=== PATIENT | female | born 1960 | race Caucasian/White ===

== ENCOUNTER 2017-06-12 14:57 | Inpatient (IN) | payer MEDICAID ==
[~2017-06-12] VITALS: Ht 157.5 cm; Wt 72.0 kg
[~2017-06-12 14:57] MED LIST: ALBU18; ASPI81TA10 PO; BUPR-60 PO; CLOP75TA41 PO; DICLTAB45 PO; ENAL-3; FURO40TA4 PO; ONDANSETRON HCL 4 MG TABLET PO; PANTOPRAZOLE SOD DR 40 MG TAB PO; SPIR25TA89 PO
[2017-06-12] MEDS ORDERED: ASPirin 81 mg TAB PO ONE (15:30)
[2017-06-12 15:50] LABS: Basophils # (auto) 0.1 uL; Basophils % (auto) 0.7 % (0.0-2.0); Eosinophils # (auto) 0.1 uL; Eosinophils % (auto) 1.1 % (0.0-7.0); Hematocrit 41.7 % (36.0-46.0); Hemoglobin 13.8 g/dL (12.2-16.2); Lymphocytes # (auto) 1.5 uL; Lymphocytes % (auto) 17.1 % (10.0-50.0); Mean Corpuscular Hemoglobin 30.4 pg (28.0-32.0); Mean Corpuscular Volume 91.9 fL (80.0-100.0); Monocytes # (auto) 0.8 uL; Neutrophils # (auto) 6.1 uL; Neutrophils % (auto) 72.1 % (37.0-80.0); Nucleated Red Blood Cells % 0.1 %; Platelet Count (auto) 248 10^3/uL (140-450); Red Blood Cells 4.53 10^6/uL (4.0-5.20); Red Cell Distribution Width 13.3 % (11.8-14.3); White Blood Cell 8.5 10^3/uL (4.4-10.8)
[2017-06-12 16:07] LABS: BUN/Creatinine Ratio 17.4; Calcium 8.7 mg/dL (8.5-10.1); Magnesium 2.1 mg/dL (1.6-2.6); Potassium 4.1 mmol/L (3.5-5.1)
[2017-06-12 16:10] LABS: Bilirubin, Total 0.3 mg/dL (0.2-1.0)
[2017-06-12] MEDS ORDERED: FUROSEMIDE 40 MG/4 ML VIAL IV ONE (16:15)
[2017-06-12] MEDS ORDERED: LACTULOSE 20Gm/30ML SOLN PO PRN (17:00)
[2017-06-12] MEDS ORDERED: OSELTAMIVIR 75 MG CAP PO ONE (17:00)
[2017-06-12] MEDS ORDERED: PROMETHAZINE HCL 25 MG/ML 1ML IV PRN (17:00)
[2017-06-12] MEDS ORDERED: ACETAMINOPHEN 500 MG TAB PO PRN (17:00)
[2017-06-12] MEDS ORDERED: MORPHINE SULFATE 10 MG/ML INJ 1ML SDV IV PRN ×2 (17:00)
[2017-06-12] MEDS ORDERED: TEMAZEPAM 15 MG CAP PO PRN (17:00)
[2017-06-12] MEDS ORDERED: NITROGLYCERIN 0.4 MG SL TAB SL PRN (17:00)
[2017-06-12] MEDS ORDERED: ALBUTEROL SULF 2.5 MG/0.5ML(0.5%) NEB SOLN NEB PRN (17:00)
[2017-06-12] MEDS ORDERED: LORazepam 0.5 MG TAB PO PRN (17:00)
[2017-06-12] MEDS: NITROGLYCERIN 0.2MG/HR TOPICAL PATCH TD SCH (17:58)
[2017-06-12] MEDS: ENOXAPARIN SOD 40 MG/0.4 ML SYRINGE SC SCH (17:59)
[2017-06-12] MEDS: ALBUTEROL SULF 2.5 MG/0.5ML(0.5%) NEB SOLN NEB SCH (18:15)
[2017-06-12] MEDS: buPROPion HCL 75 MG TAB PO SCH (19:06)
[2017-06-12] MEDS: HYDROcodone-ACET 5/325MG TAB PO PRN (19:59)
[2017-06-12 20:00] VITALS: BP 127/98
[2017-06-12] MEDS: FUROSEMIDE 40 MG/4 ML VIAL IV SCH (21:50)
[2017-06-12] MEDS: CARVEDILOL 3.125 MG TAB PO SCH (21:50)
[2017-06-12 22:00] VITALS: BP 127/98
[2017-06-12] MEDS ORDERED: OSELTAMIVIR 75 MG CAP PO SCH (22:00)
[2017-06-12] MEDS ORDERED: INFLUENZA QUAD 2017-2018 0.5 ML SYRG IM ONE (23:30)
[2017-06-13] MEDS: ALBUTEROL SULF 2.5 MG/0.5ML(0.5%) NEB SOLN NEB SCH ×4 (01:00→18:00)
[2017-06-13 03:59] VITALS: BP 114/76
[2017-06-13 05:00] VITALS: BP 120/72
[2017-06-13 06:17] LABS: Basophils # (auto) 0.1 uL; Basophils % (auto) 0.8 % (0.0-2.0); Eosinophils # (auto) 0.1 uL; Eosinophils % (auto) 1.6 % (0.0-7.0); Hematocrit 41.5 % (36.0-46.0); Hemoglobin 13.9 g/dL (12.2-16.2); Lymphocytes # (auto) 1.2 uL; Lymphocytes % (auto) 15.5 % (10.0-50.0); Mean Corpuscular Hemoglobin 30.6 pg (28.0-32.0); Mean Corpuscular Hgb Conc. 33.4 g/dL (32.0-36.0); Mean Corpuscular Volume 91.6 fL (80.0-100.0); Monocytes # (auto) 0.7 uL; Monocytes % (auto) 8.9 % (0.0-12.0); Neutrophils # (auto) 5.8 uL; Neutrophils % (auto) 73.2 % (37.0-80.0); Platelet Count (auto) 205 10^3/uL (140-450); Red Blood Cells 4.53 10^6/uL (4.0-5.20); Red Cell Distribution Width 13.2 % (11.8-14.3); White Blood Cell 7.9 10^3/uL (4.4-10.8)
[2017-06-13 06:34] LABS: BUN/Creatinine Ratio 21.7; Bilirubin, Total 0.7 mg/dL (0.2-1.0); Calcium 8.6 mg/dL (8.5-10.1); Potassium 3.8 mmol/L (3.5-5.1); Total Protein 7.7 g/dL (6.4-8.2)
[2017-06-13] MEDS: buPROPion HCL 75 MG TAB PO SCH ×2 (06:44→18:23)
[2017-06-13 09:00] VITALS: BP 141/89
[2017-06-13] MEDS: NITROGLYCERIN 0.2MG/HR TOPICAL PATCH TD SCH (10:00)
[2017-06-13] MEDS: HYDROcodone-ACET 5/325MG TAB PO PRN (10:51)
[2017-06-13] MEDS: PANTOPRAZOLE 40 MG TAB PO SCH (10:52)
[2017-06-13] MEDS: CLOPIDOGREL BISULFATE 75 MG TAB PO SCH (10:52)
[2017-06-13] MEDS: FUROSEMIDE 40 MG/4 ML VIAL IV SCH ×2 (10:52→22:19)
[2017-06-13] MEDS: ENALAPRIL MALEATE 10 MG TAB PO SCH (10:53)
[2017-06-13] MEDS: CARVEDILOL 3.125 MG TAB PO SCH ×2 (10:53→22:25)
[2017-06-13] MEDS: SPIRONOLACTONE 25 MG TAB PO SCH (10:54)
[2017-06-13] MEDS: ASPirin 81 mg TAB PO SCH (10:54)
[2017-06-13] MEDS: POTASSIUM CHL 20 Meq TABLET PO SCH (10:54)
[2017-06-13] MEDS: ENOXAPARIN SOD 40 MG/0.4 ML SYRINGE SC SCH (10:55)
[2017-06-13 13:00] VITALS: BP 128/104
[2017-06-13] MEDS: DIGOXIN 0.25 MG TAB PO SCH (14:45)
[2017-06-13 15:31] LABS: Alcohol, Urine < 3.0 mg/dL (0-5); Amphetamine Screen, Urine NEGATIVE (NEGATIVE); Barbiturate Scree,Urine NEGATIVE (NEGATIVE); Benzodiazephine Screen, Urine NEGATIVE (NEGATIVE); Cannabinoid Screen, Urine NEGATIVE (NEGATIVE); Cocaine Screen, Urine NEGATIVE (NEGATIVE); Opiate Scree,Urine NEGATIVE (NEGATIVE); Phencyclidine Screen, Urine NEGATIVE (NEGATIVE)
[2017-06-13 17:00] VITALS: BP 138/105
[2017-06-13 22:00] VITALS: BP 135/92
[2017-06-14 05:00] VITALS: BP 91/61
[2017-06-14] MEDS: ALBUTEROL SULF 2.5 MG/0.5ML(0.5%) NEB SOLN NEB SCH ×5 (06:08→17:59)
[2017-06-14] MEDS: buPROPion HCL 75 MG TAB PO SCH ×2 (06:13→18:29)
[2017-06-14 07:53] LABS: Basophils # (auto) 0.1 uL; Basophils % (auto) 0.8 % (0.0-2.0); Eosinophils # (auto) 0.1 uL; Eosinophils % (auto) 1.2 % (0.0-7.0); Hematocrit 44.3 % (36.0-46.0); Hemoglobin 15.1 g/dL (12.2-16.2); Lymphocytes # (auto) 1.5 uL; Lymphocytes % (auto) 18.3 % (10.0-50.0); Mean Corpuscular Hemoglobin 30.5 pg (28.0-32.0); Mean Corpuscular Hgb Conc. 34.1 g/dL (32.0-36.0); Mean Corpuscular Volume 89.5 fL (80.0-100.0); Monocytes # (auto) 0.9 uL; Monocytes % (auto) 10.9 % (0.0-12.0); Neutrophils # (auto) 5.8 uL; Neutrophils % (auto) 68.8 % (37.0-80.0); Platelet Count (auto) 257 10^3/uL (140-450); Red Blood Cells 4.95 10^6/uL (4.0-5.20); White Blood Cell 8.4 10^3/uL (4.4-10.8)
[2017-06-14 08:08] LABS: Albumin 3.1 g/dL (3.4-5.0); BUN/Creatinine Ratio 23.9; Calcium 9.4 mg/dL (8.5-10.1); Potassium 4.1 mmol/L (3.5-5.1)
[2017-06-14 08:11] LABS: Bilirubin, Total 0.6 mg/dL (0.2-1.0); Total Protein 8.1 g/dL (6.4-8.2)
[2017-06-14 10:07] VITALS: BP 125/80
[2017-06-14] MEDS: ASPirin 81 mg TAB PO SCH (10:09)
[2017-06-14] MEDS: DIGOXIN 0.25 MG TAB PO SCH (10:09)
[2017-06-14] MEDS: FUROSEMIDE 40 MG/4 ML VIAL IV SCH ×2 (10:09→21:42)
[2017-06-14] MEDS: POTASSIUM CHL 20 Meq TABLET PO SCH (10:09)
[2017-06-14] MEDS: PANTOPRAZOLE 40 MG TAB PO SCH (10:10)
[2017-06-14] MEDS: CLOPIDOGREL BISULFATE 75 MG TAB PO SCH (10:10)
[2017-06-14] MEDS: ENALAPRIL MALEATE 10 MG TAB PO SCH (10:10)
[2017-06-14] MEDS: ENOXAPARIN SOD 40 MG/0.4 ML SYRINGE SC SCH (10:10)
[2017-06-14] MEDS: SPIRONOLACTONE 25 MG TAB PO SCH (10:11)
[2017-06-14] MEDS: CARVEDILOL 3.125 MG TAB PO SCH ×2 (10:11→21:43)
[2017-06-14 13:00] VITALS: BP 134/94
[2017-06-14 17:00] VITALS: BP 135/87
[2017-06-14 22:00] VITALS: BP 120/60
[2017-06-15 05:00] VITALS: BP 117/76
[2017-06-15] MEDS: buPROPion HCL 75 MG TAB PO SCH (06:31)
[2017-06-15] MEDS: ALBUTEROL SULF 2.5 MG/0.5ML(0.5%) NEB SOLN NEB SCH ×2 (07:10→12:55)
[2017-06-15 08:00] VITALS: BP 130/94
[2017-06-15 09:00] VITALS: BP 130/94
[2017-06-15] MEDS: FUROSEMIDE 40 MG/4 ML VIAL IV SCH (10:06)
[2017-06-15] MEDS: CLOPIDOGREL BISULFATE 75 MG TAB PO SCH (10:06)
[2017-06-15] MEDS: SPIRONOLACTONE 25 MG TAB PO SCH (10:07)
[2017-06-15] MEDS: DIGOXIN 0.25 MG TAB PO SCH (10:07)
[2017-06-15] MEDS: ASPirin 81 mg TAB PO SCH (10:07)
[2017-06-15] MEDS: CARVEDILOL 3.125 MG TAB PO SCH (10:07)
[2017-06-15] MEDS: POTASSIUM CHL 20 Meq TABLET PO SCH (10:07)
[2017-06-15] MEDS: ENALAPRIL MALEATE 10 MG TAB PO SCH (10:07)
[2017-06-15] MEDS: PANTOPRAZOLE 40 MG TAB PO SCH (10:07)
[2017-06-15] MEDS: ENOXAPARIN SOD 40 MG/0.4 ML SYRINGE SC SCH (10:08)
== END 2017-06-15 12:45 | disposition home or self-care (01) | DRG 190 ==
LOC: ER 14:57 → TELE 14:58 → TELE-WESTW 19:50
PROVIDERS: ADMIT Internal Medicine; ATTEND Internal Medicine
DX: I21.4 Non-ST elevation (NSTEMI) myocardial infarction (principal); I50.23 Acute on chronic systolic (congestive) heart failure; I07.1 Rheumatic tricuspid insufficiency; E44.1 Mild protein-calorie malnutrition; I11.0 Hypertensive heart disease with heart failure; I25.10 Atherosclerotic heart disease of native coronary artery without angina pectoris; I25.5 Ischemic cardiomyopathy; J44.9 Chronic obstructive pulmonary disease, unspecified; E78.5 Hyperlipidemia, unspecified; F17.210 Nicotine dependence, cigarettes, uncomplicated; I25.2 Old myocardial infarction; Z95.5 Presence of coronary angioplasty implant and graft; Z95.810 Presence of automatic (implantable) cardiac defibrillator; Z86.73 Personal history of transient ischemic attack (TIA), and cerebral infarction without residual deficits; Z98.51 Tubal ligation status; Z82.49 Family history of ischemic heart disease and other diseases of the circulatory system; Z80.9 Family history of malignant neoplasm, unspecified; Z91.14 Patient's other noncompliance with medication regimen; Z68.29 Body mass index [BMI] 29.0-29.9, adult
CPT/HCPCS: 36415; 71045; 80053; 80061; 80307; 82550; 83735; 83880; 84443; 84484; 85025; 85379; 85652; 86141; 87400; 93005; 93306; 94640; 94761; 96374

== ENCOUNTER 2019-01-21 01:47 | Emergency (ER) | payer MEDICAID ==
[~2019-01-21] VITALS: Ht 157.5 cm; Wt 62.6 kg
[~2019-01-21 01:47] MED LIST changes: -ALBU18; -BUPR-60 PO; -DICLTAB45 PO; -ENAL-3; -ONDANSETRON HCL 4 MG TABLET PO; -PANTOPRAZOLE SOD DR 40 MG TAB PO; +SPIR25TA8 PO; -SPIR25TA89 PO
[2019-01-21 02:43] VITALS: BP 120/72
[2019-01-21 05:48] LABS: Basophils # (auto) 0.1 uL; Basophils % (auto) 0.7 % (0.0-2.0); Eosinophils # (auto) 0.1 uL; Eosinophils % (auto) 1.5 % (0.0-7.0); Hematocrit 37.6 % (36.0-46.0); Hemoglobin 12.9 g/dL (12.2-16.2); Lymphocytes # (auto) 1.3 uL; Lymphocytes % (auto) 14.8 % (10.0-50.0); Mean Corpuscular Hemoglobin 32.5 pg (28.0-32.0); Mean Corpuscular Hgb Conc. 34.4 g/dL (32.0-36.0); Mean Corpuscular Volume 94.3 fL (80.0-100.0); Monocytes # (auto) 0.8 uL; Monocytes % (auto) 9.7 % (0.0-12.0); Neutrophils # (auto) 6.4 uL; Neutrophils % (auto) 73.3 % (37.0-80.0); Nucleated Red Blood Cells % 0.1 %; Platelet Count (auto) 289 10^3/uL (140-450); Red Blood Cells 3.98 10^6/uL (4.0-5.20); Red Cell Distribution Width 14.6 % (11.8-14.3); White Blood Cell 8.7 10^3/uL (4.4-10.8)
[2019-01-21 06:05] LABS: Albumin 3.6 g/dL (3.4-5.0); Potassium 3.9 mmol/L (3.5-5.1)
[2019-01-21 06:09] LABS: BUN/Creatinine Ratio 24.2; Bilirubin, Total 0.3 mg/dL (0.2-1.0); Total Protein 8.5 g/dL (6.4-8.2)
== END 2019-01-21 06:40 | disposition left against medical advice (07) ==
LOC: ER 01:48
DX: L98.8 Other specified disorders of the skin and subcutaneous tissue (principal); Z53.21 Procedure and treatment not carried out due to patient leaving prior to being seen by health care provider
CPT/HCPCS: 36415; 80053; 85025

== ENCOUNTER 2021-07-03 16:20 | Emergency (ER) | payer MEDICAID ==
[~2021-07-03] VITALS: Ht 157.5 cm; Wt 56.2 kg
[~2021-07-03 16:20] MED LIST changes: -CLOP75TA41 PO; +CLOP75TA70 PO
[2021-07-03] MEDS ORDERED: AZIT1POW PO (18:24)
[2021-07-03] MEDS ORDERED: METH4PAK PO (18:24)
[2021-07-03 18:43] VITALS: BP 115/85
== END 2021-07-03 18:44 | disposition home or self-care (01) ==
LOC: ER 16:26
DX: U07.1 COVID-19 (principal); R06.02 Shortness of breath; I11.0 Hypertensive heart disease with heart failure; I50.9 Heart failure, unspecified; J44.9 Chronic obstructive pulmonary disease, unspecified; E78.5 Hyperlipidemia, unspecified; Z98.51 Tubal ligation status; Z86.73 Personal history of transient ischemic attack (TIA), and cerebral infarction without residual deficits
CPT/HCPCS: 36415; 71045; 87426

== ENCOUNTER 2023-09-09 02:16 | Inpatient (IN) | payer BC, MEDICAID ==
[~2023-09-09] VITALS: Ht 160 cm; Wt 59.0 kg
[~2023-09-09 02:16] MED LIST changes: +AZIT1POW PO; +METH4PAK PO
[2023-09-09] MEDS ORDERED: SODIUM CHLORIDE 0.9% 1,000 ML IV ONE (03:00)
[2023-09-09] MEDS: ONDANSETRON HCL 4 MG/2 ML VIAL IV ONE (03:11)
[2023-09-09 03:41] LABS: Alanine Aminotransferase 47 U/L (7-40); Alkaline Phosphatase 89 U/L (46-116); Anion Gap 7 (5-15); Aspartate Aminotransferase 43 U/L (13-40); Basophils # (auto) 0.1 10 ^3/uL (0-0.2); Basophils % (auto) 0.9 % (0.0-2.0); Blood Urea Nitrogen 31 mg/dL (9-23); Calcium 9.7 mg/dL (8.7-10.4); Carbon Dioxide 22 mmol/L (20-30); Chloride 107 mmol/L (98-107); Eosinophils # (auto) 0.1 10 ^3/uL (0-0.8); Eosinophils % (auto) 1.2 % (0.0-7.0); Glucose 118 mg/dL (74-106); Hematocrit 42.4 % (36.0-46.0); Hemoglobin 13.9 g/dL (12.2-16.2); Lymphocytes # (auto) 1.1 10 ^3/uL (0.4-5.4); Lymphocytes % (auto) 16.2 % (10.0-50.0); Mean Corpuscular Hemoglobin 30.4 pg (28.0-32.0); Mean Corpuscular Hgb Conc. 32.7 g/dL (32.0-36.0); Monocytes # (auto) 0.6 10 ^3/uL (0-1.3); Monocytes % (auto) 8.5 % (0.0-12.0); Neutrophils % (auto) 73.2 % (37.0-80.0); Nucleated Red Blood Cells % 0.1 %; Potassium 3.8 mmol/L (3.5-5.1); Red Blood Cells 4.56 10^6/uL (4.0-5.20); Red Cell Distribution Width 13.6 % (11.8-14.3); Sodium 136 mmol/L (136-145); White Blood Cell 6.8 10^3/uL (4.4-10.8)
[2023-09-09 03:42] LABS: Bilirubin, Total 0.4 mg/dL (0.2-1.0); Total Protein 7.2 g/dL (5.7-8.2)
[2023-09-09 03:58] LABS: Blood Alcohol < 3.0 mg/dL (<10)
[2023-09-09 04:00] VITALS: PULSE 79; RESP 19; O2SAT 95
[2023-09-09] MEDS ORDERED: NITROGLYCERIN 0.4 MG SL TAB SL PRN (07:15)
[2023-09-09] MEDS ORDERED: HYDROcodone-ACET 5/325MG TAB PO PRN (07:15)
[2023-09-09] MEDS ORDERED: MORPHINE SULFATE INJ 2 MG/ml SYRG IV PRN (07:15)
[2023-09-09] MEDS ORDERED: ONDANSETRON HCL 4 MG/2 ML VIAL IV PRN (07:15)
[2023-09-09] MEDS ORDERED: ACETAMINOPHEN 325 MG TAB PO PRN (07:15)
[2023-09-09 07:18] LABS: Urine Bacteria None Seen /hpf (None Seen)
[2023-09-09 07:45] VITALS: PULSE 82; RESP 17; O2SAT 97
[2023-09-09 07:47] LABS: Urine Blood Negative /uL (Negative); Urine Clarity Clear (Clear); Urine Color Light-Yellow (Yellow); Urine Mucus FEW (None Seen); Urine Protein, UAD TRACE (Negative); Urine Specific Gravity 1.023 (1.001-1.035); Urine Urobilinogen Normal (Negative); Urine WBC 1 /hpf (0 - 5)
[2023-09-09 07:57] LABS: Amphetamine Screen, Urine Pos (NEGATIVE); Barbiturate Scree,Urine Neg (NEGATIVE); Benzodiazephine Screen, Urine Neg (NEGATIVE); Cannabinoid Screen, Urine Pos (NEGATIVE); Cocaine Screen, Urine Neg (NEGATIVE); Opiate Scree,Urine Neg (NEGATIVE); Phencyclidine Screen, Urine Neg (NEGATIVE)
[2023-09-09] MEDS: SODIUM CHLORIDE 0.9% 1,000 ML IV SCH (07:59)
[2023-09-09 08:00] VITALS: BP 122/79; PULSE 85; RESP 17; TEMP 98.1; O2SAT 97
[2023-09-09] MEDS ORDERED: ENOXAPARIN SOD 40 MG/0.4 ML SYRINGE SC SCH (10:00)
[2023-09-10] MEDS ORDERED: CLOP75TA28 PO (14:28)
[2023-09-10] MEDS ORDERED: ASPI81CH59 PO (14:28)
[2023-09-10] MEDS ORDERED: LISI20TA56 PO (14:28)
[2023-09-10] MEDS ORDERED: SILD50TA PO (14:28)
[2023-09-10] MEDS ORDERED: AMIO200T33 PO (14:28)
[2023-09-10] MEDS ORDERED: POTA-36 PO (14:28)
== END 2023-09-10 09:13 | disposition left against medical advice (07) | DRG 392 ==
LOC: EDBD 02:16 → ER 02:16 → TELE 07:18
PROVIDERS: ADMIT Nurse Practitioner; ATTEND Nurse Practitioner
DX: R11.2 Nausea with vomiting, unspecified (principal); I50.32 Chronic diastolic (congestive) heart failure; I48.0 Paroxysmal atrial fibrillation; I11.0 Hypertensive heart disease with heart failure; R79.89 Other specified abnormal findings of blood chemistry; Z53.29 Procedure and treatment not carried out because of patient's decision for other reasons; I25.10 Atherosclerotic heart disease of native coronary artery without angina pectoris; J44.9 Chronic obstructive pulmonary disease, unspecified; E78.5 Hyperlipidemia, unspecified; F17.210 Nicotine dependence, cigarettes, uncomplicated; F15.10 Other stimulant abuse, uncomplicated; Z95.0 Presence of cardiac pacemaker; Z86.73 Personal history of transient ischemic attack (TIA), and cerebral infarction without residual deficits; I25.2 Old myocardial infarction; Z95.5 Presence of coronary angioplasty implant and graft; Z80.49 Family history of malignant neoplasm of other genital organs; F12.929 Cannabis use, unspecified with intoxication, unspecified
CPT/HCPCS: 36415; 71045; 80053; 80307; 80320; 81001; 83880; 84484; 85025; 85379; 93005; 96374; G0378; J2405

== ENCOUNTER 2024-04-26 08:53 | Inpatient (IN) | payer OTHER, MEDICAID ==
[~2024-04-26] VITALS: Ht 152.4 cm; Wt 54.5 kg
[~2024-04-26 08:53] MED LIST changes: +AMIO200T33 PO; +ASPI81CH59 PO; -ASPI81TA10 PO; -AZIT1POW PO; +CLOP75TA28 PO; -CLOP75TA70 PO; +LISI20TA56 PO; -METH4PAK PO; +POTA-36 PO; +SILD50TA PO
--- NOTE | 2024-04-26 09:07 | ED.PDOC ---
GI ASSESSMENT HPI Comments 63 year old female ADDI presents to the ED with chief complaint of abdominal pain. Patient reports that she has been experiencing epigastric abdominal pain for the past week with associated fever and chills. Patient relays that around symptom onset, she started to take Doxycycline for a previous diagnosis of MRSA to her left lower leg, which she has now ran out of. Patient admits to methamphetamine use 2 days ago. Patient denies any N/V/D, dizziness, headache, chest pain, or SOB. Time Seen by MD: 09:02 Primary Care Provider: Adrian REYES Reviewed Notes: Nurses Notes, Resident Medical Officer Notes, Medications, Allergies Allergies: Coded Allergies: NO KNOWN ALLERGIES (Unverified , 08/16/12) Home Meds Reported Medications Spironolactone (Spironolactone) 25 Mg Tab, 1 TAB PO DAILY 09/10/23 Potassium Chloride (POTASSIUM CHLORIDE CR) 10 Meq Tb, 8 MEQ PO BID 09/10/23 Clopidogrel Bisulfate (Plavix) 75 Mg Tab, 1 TAB PO DAILY 09/10/23 Aspirin (Aspirin Low Dose) 81 Mg Chw, 1 TAB PO DAILY 09/10/23 Sildenafil Citrate (Viagra) 50 Mg Tab, 20 MG PO TID 09/10/23 Furosemide (Furosemide) 40 Mg Tab, 1 TAB PO DAILY 09/10/23 Amiodarone Hcl (Amiodarone Hcl) 200 Mg Tab, 1 TAB PO DAILY 09/10/23 Lisinopril (Lisinopril) 20 Mg Tab, 1 TAB PO DAILY 09/10/23 Information Source: Patient, Emergency Med Personnel Mode of Arrival: EMS Timing: Weeks Duration: Since onset Prehospital treatment: None Quality: Cramping Vomitus: None Stool: Normal Severity: Moderate Recent: Antibiotics (Doxycycline) Recent Hx of: None Pain Location: Epigastric Modifying Factors: Nothing Associated sign and symptoms: Abdominal Pain, Fever Past Medical History PAST MEDICAL HISTORY: CAD, CHF, COPD, CVA, High Lipids, HTN, SC Surgical History: Pacemaker, PTCA, Tonsillectomy, Tubal Ligation [employer] 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 History: No Pertinent [employer] SUPER[employer]OR History Family History Family History: Reviewed,noncontributory to illness, No family hx of Cancer, No family hx of Heart [place], No family hx of HTN Social History Smoker: Less Than 1 Pack/Day Alcohol: Denies ETOH Use Drugs: Marijuana, Methamphetamine Lives In: Home Constitutional: reports: chills, fever; denies: diaphoresis, fatigue, malaise, sweats, weakness, others EENTM: denies: blurred vision, double vision, ear bleeding, ear discharge, ear drainage, ear pain, ear ringing, eye pain, eye redness, hearing loss, mouth pain, mouth swelling, nasal discharge, nose bleeding, nose congestion, nose pain, photophobia, tearing, throat pain, throat swelling, voice changes, others Respiratory: denies: cough, hemoptysis, orthopnea, SOB at rest, shortness of breath, SOB with excertion, stridor, wheezing, others Cardiovascular: denies: chest pain, dizzy spells, diaphoresis, Dyspnea on exertion, edema, irregular heart beat, left arm pain, lightheadedness, palpitations, PND, syncope, others Gastrointestinal: reports: abdominal pain; denies: abdomen distended, blood streaked bowels, constipated, diarrhea, dysphagia, difficulty swallowing, hematemesis, melena, nausea, poor appetite, poor fluid intake, rectal bleeding, rectal pain, vomiting, others Genitourinary: denies: abnormal vagina bleeding, burning, dyspareunia, dysuria, flank pain, frequency, hematuria, incontinence, pain, , vagina discharge, urgency, others Neurological: denies: dizziness, fainting, headache, left sided numbness, left sided weakness, numbness, paresthesia, pre-existing deficit, right sided numbness, right sided weakness, seizure, speech problems, tingling, tremors, weakness, others Musculoskeletal: denies: back pain, gout, joint pain, joint swelling, muscle pain, muscle stiffness, neck pain, others Integumetry: reports: lesions (left foreleg lesion); denies: bruises, change in color, change in hair/nails, dryness, laceration, lumps, rash, wounds, others Allergic/Immunocompromised: denies: Difficulty Healing, Frequent Infections, Hives, Itching, others Hematologic/Lymphatic: denies: anemia, blood clots, easy bleeding, easy bruising, swollen glands, others Endocrine: denies: excessive hunger, excessive sweating, excessive thirst, excessive urination, flushing, intolerance to cold, intolerance to heat, unexplained weight gain, unexplained weight loss, others Psychiatric: denies: anxiety, bipolar disorder, depression, hopeless, panic disorder, schizophrenia, sleepless, suicidal, others All Other Systems: Reviewed and Negative Physical Exam General Appearance: No Apparent Distress, Normal HEENT: Normal ENT Inspection, PERRL/EOMI Neck: Full Range of Motion, Non-Tender, Normal, Normal Inspection Respiratory: Chest Non-Tender, Lungs Clear, No Accessory Muscle Use, No Respiratory Distress, Normal Breath Sounds Cardiovascular: No Edema, No JVD, No Murmur, No Gallop, Normal Peripheral Pulses, Regular Rate/Rhythm Breast Exam: Deferred Gastrointestinal: No Organomegaly, Non Tender, No Pulsatile Mass, Normal Bowel Sounds, Soft Genitalia: Deferred Pelvic: Deferred Rectal: Deferred Extremities: No calf tenderness, Normal capillary refill, Normal inspection, Normal range of motion, Non-tender, No pedal edema Musculoskeletal : Apperance: Normal Neurologic: Alert, telesales representative II-XII nml as Tested, No Motor Deficits, Normal Affect, Normal Mood, No Sensory Deficits Cerebellar Function: Normal Reflexes: Normal Skin: Dry, Warm, Other (Blueish discoloration noted to bilateral lower extremities, 2x2cm round eschar to the left medial side of left foreleg.) Lymphatic: No Adenopathy Was a procedure done? Was a procedure done?: No GI differential Dx Differential Diagnosis: Gastritis/PUD, Gastroenteritis, Bacterial, Viral X-Ray, Labs, Meds, VS Vital Signs Date Time Temp Pulse Resp B/P (MAP) Pulse Ox O2 Delivery O2 Flow Rate FiO2 04/26/24 09:30 98.6 74 16 116/75 (89) 96 98.6 04/26/24 09:30 74 16 96 Room Air* 0 21 04/26/24 08:56 98.6 60 22 140/81 (100) 97 Lab Test 04/26/24 09:40 Range/Units White Blood Count 8.6 4.4-10.8 10^3/uL Red Blood Count 5.49 H 4.0-5.20 10^6/uL Hemoglobin 16.9 H 12.2-16.2 g/dL Hematocrit 49.9 H 36.0-46.0 % Mean Corpuscular Volume 91.0 80.0-100.0 fL Mean Corpuscular Hemoglobin 30.7 28.0-32.0 pg Mean Corpuscular Hemoglobin Concent 33.8 32.0-36.0 g/dL Red Cell Distribution Width 14.5 H 11.8-14.3 % Platelet Count 288 140-450 10^3/uL Mean Platelet Volume 8.0 6.9-10.8 fL Neutrophils (%) (Auto) 87.6 H 37.0-80.0 % Lymphocytes (%) (Auto) 6.3 L 10.0-50.0 % Monocytes (%) (Auto) 5.7 0.0-12.0 % Eosinophils (%) (Auto) 0.1 0.0-7.0 % Basophils (%) (Auto) 0.3 0.0-2.0 % Neutrophils # (Auto) 7.5 1.6-8.6 10 ^3/uL Lymphocytes # (Auto) 0.5 0.4-5.4 10 ^3/uL Monocytes # (Auto) 0.5 0-1.3 10 ^3/uL Eosinophils # (Auto) 0 0-0.8 10 ^3/uL Basophils # (Auto) 0 0-0.2 10 ^3/uL Nucleated Red Blood Cells 0.2 % Sodium Level 126 L 136-145 mmol/L Potassium Level 5.7 *H 3.5-5.1 mmol/L Chloride Level 95 L 98-107 mmol/L Carbon Dioxide Level 15 L 20-31 mmol/L Anion Gap 16 H 5-15 Blood Urea Nitrogen 132 *H 9-23 mg/dL Creatinine 4.68 H 0.550-1.02 mg/dL Glomerular Filtration Rate Calc 10 >90 mL/min BUN/Creatinine Ratio 28.2 H 10.0-20.0 Serum Glucose 50 L 74-106 mg/dL Calcium Level 10.3 8.7-10.4 mg/dL Total Bilirubin 0.6 0.2-1.0 mg/dL Aspartate Amino Transferase (AST) 50 H 13-40 U/L Alanine Aminotransferase (ALT) 45 H 7-40 U/L Alkaline Phosphatase 119 H 46-116 U/L Troponin I High Sensitivity 49 *H </=34 ng/L Total Protein 8.0 5.7-8.2 g/dL Albumin 4.4 3.2-4.8 g/dL Current Medications Medications (Trade) Dose Ordered Sig/Jose Luis Route Start Time Stop Time Status Last Admin Metoclopramide HCl (Reglan Injection) 10 mg ONCE ONCE IV 04/26/24 09:15 04/26/24 09:16 DC 04/26/24 10:06 Sodium Chloride 1,000 ml @ 1,000 mls/hr Q1H ONCE IV 04/26/24 09:15 04/26/24 10:14 DC 04/26/24 10:06 Al Hydrox/Mg Hydrox/Simethicone (Maalox Plus) 30 ml ONCE ONCE PO 04/26/24 09:15 04/26/24 09:16 DC 04/26/24 10:06 Time of 1ST Reevaluation: 10:02 Reevaluation 1ST: Unchanged Time of 2ND Reevaluation: 10:53 Reevaluation 2ND: Unchanged Patient Education/Counseling: Diagnosis, Treatment Family Education/Counseling: No Family Present Departure 1 Departure Time of Disposition: 10:55 Impression: Primary Impression: Hyperkalemia Additional Impressions: ARF (acute renal failure) Dehydration Disposition: ADMITTED INPATIENT Admit to: Tele Condition: Critical Critical Care Note Critical Care Time?: No Critical care comment: CRITICAL CARE TIME: 40 minutes Treatments/Evaluations: Close monitoring and treatment of unstable vital signs, cardiorespiratory, and neurologic status, while maintaining tight balance of fluid, respiratory, and cardiac interventions. This time includes discussing the case with the patient and the patients family. This time does not include all procedures stated elsewhere in this record. This time also includes reviewing old records, labs and radiological studies. This time includes examining and re- examining the patient. Additionally, this time also includes arranging care with admitting and consulting physicians. Stability Stability form required: No Heart Score Heart Score: Heart Score Response (Comments) Value History N/A 0 EKG N/A 0 Age N/A 0 Risk Factors N/A 0 Troponin N/A 0 Total 0 I personally scribed for BHASKAR SETHI MD ([email or web address]) on 04/26/24 at 09:07. Electronically submitted by Ismael Hunt ([email or web address]). BHASKAR SETHI MD Apr 26, 2024 09:07
[2024-04-26 09:30] VITALS: PULSE 74; RESP 16; O2SAT 96
[2024-04-26 09:55] LABS: Basophils # (auto) 0 10 ^3/uL (0-0.2); Basophils % (auto) 0.3 % (0.0-2.0); Eosinophils # (auto) 0 10 ^3/uL (0-0.8); Eosinophils % (auto) 0.1 % (0.0-7.0); Hematocrit 49.9 % (36.0-46.0); Hemoglobin 16.9 g/dL (12.2-16.2); Lymphocytes # (auto) 0.5 10 ^3/uL (0.4-5.4); Lymphocytes % (auto) 6.3 % (10.0-50.0); Mean Corpuscular Hemoglobin 30.7 pg (28.0-32.0); Mean Corpuscular Hgb Conc. 33.8 g/dL (32.0-36.0); Monocytes # (auto) 0.5 10 ^3/uL (0-1.3); Monocytes % (auto) 5.7 % (0.0-12.0); Neutrophils # (auto) 7.5 10 ^3/uL (1.6-8.6); Neutrophils % (auto) 87.6 % (37.0-80.0); Nucleated Red Blood Cells % 0.2 %; Platelet Count (auto) 288 10^3/uL (140-450); Red Blood Cells 5.49 10^6/uL (4.0-5.20); Red Cell Distribution Width 14.5 % (11.8-14.3); White Blood Cell 8.6 10^3/uL (4.4-10.8)
[2024-04-26] MEDS: METOCLOPRAMIDE HCL 5MG/ml INJ 2ml VIAL IV ONE (10:06)
[2024-04-26] MEDS: SODIUM CHLORIDE 0.9% 1,000 ML IV ONE (10:06)
[2024-04-26] MEDS: MAALOX PLUS or MAALOX 30 ML PO ONE (10:06)
[2024-04-26 10:15] LABS: Alanine Aminotransferase 45 U/L (7-40); Albumin 4.4 g/dL (3.2-4.8); Alkaline Phosphatase 119 U/L (46-116); Aspartate Aminotransferase 50 U/L (13-40); Chloride 95 mmol/L (98-107)
[2024-04-26 10:18] LABS: Calcium 10.3 mg/dL (8.7-10.4); Carbon Dioxide 15 mmol/L (20-31)
[2024-04-26 10:23] LABS: BUN/Creatinine Ratio 28.2 (10.0-20.0); Glucose 50 mg/dL (74-106)
[2024-04-26 10:25] LABS: Bilirubin, Total 0.6 mg/dL (0.2-1.0)
[2024-04-26 10:30] LABS: Blood Urea Nitrogen 132 mg/dL (9-23); Potassium 5.7 mmol/L (3.5-5.1)
[2024-04-26 10:47] LABS: Anion Gap 16 (5-15); Sodium 126 mmol/L (136-145)
--- NOTE | 2024-04-26 10:51 | ECG ---
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
[2024-04-26] MEDS: InsuLIN REG 1unit/0.01ml Soln (100units/ml) IV ONE ×2 (11:00→15:30)
[2024-04-26] MEDS: ALBUTEROL SULF 2.5 MG/0.5ML(0.5%) NEB SOLN NEB ONE (11:11)
--- NOTE | 2024-04-26 11:15 | DVH ---
CHEST RADIOGRAPH Indication: sob Technique: Single frontal view of the chest was obtained COMPARISON: XY CHEST XRAY 1 VIEW on DOS: 09/09/23, CHEST XRAY 1 VIEW on DOS: 07/03/21 FINDINGS: Lines and Tubes: Left chest AICD Lungs: Clear Pleura: No effusion. No pneumothorax. Cardiomediastinal contours: Moderate hiatal hernia. Bones: Unremarkable IMPRESSION: No acute disease.
--- NOTE | 2024-04-26 11:37 | DVH ---
Procedure: CT CT AB PEL WO CON-NO ORAL OR IV 04/26/2024 10:52 AM Indication: abd pain Comparison Study: None available at time of dictation. Technique: Axial images were obtained and reformatted in coronal and sagittal planes. All CT scans at this medical facility are performed using dose modulation techniques as appropriate t o a performed exam including the following: Automated exposure control was utilized; adjustment of th e MA and/or KV according to patient size; and use of iterative reconstruction technique. CT Dose: CTDI volume is 5.07 mGy. Dose-length product is 243.73 mGy*cm FINDINGS: Lower Chest: Mild cardiomegaly. Pacer wires are seen in the right cardiac chambers. Hepatobiliary: Numerous tiny calculi are seen in gallbladder lumen. Spleen: Unremarkable. Pancreas: Moderate edema adjacent to the pancreatic tail compatible with pancreatitis. No pancreatic ductal dilatation. Adrenal Glands: The bilateral adrenal glands appear thickened adjacent hazy opacities without a discr ete lesion. tract: The kidneys are normal in size bilaterally without hydronephrosis or nephrolithiasis. The urinary bladder is unremarkable. GI tract: Moderate-sized sliding hiatal hernia. Midline anterior diaphragmatic hernia measuring 6.5 c m in transverse at the level of the defect with herniation of a large portion of transverse colon whi ch is seen anterior to the heart. Large sliding hiatal hernia containing gastric fundus and proximal body. There is sigmoid diverticulosis without diverticulitis. Small bowel is normal in caliber with no evidence for obstruction Lymphatics: No mesenteric, retroperitoneal or periportal lymphadenopathy. Vasculature: The abdominal aorta is normal in in caliber. Pelvic Organs: Unremarkable Bones/soft tissues: No acute abnormality. Multilevel degenerative changes of the lumbar spine noted. Other: None. IMPRESSION: 1. Findings compatible with acute pancreatitis likely gallstone pancreatitis. Innumerable subcentime ter calcified gallstones are seen in gallbladder lumen. No intrahepatic or extrahepatic ductal dilat ation. No pancreatic ductal dilatation. No pseudocyst. 2. Moderate bilateral adrenal congestion that could be a precursor to adrenal hemorrhage. No hemorrha ge noted at this time. 3. Large sliding hiatal hernia. 4. Large anterior diaphragmatic hernia containing large portion of transverse colon which is seen ant erior to the heart. 5. Mild cardiomegaly. 6. Diffuse atherosclerotic disease. 7. Sigmoid diverticula without diverticulitis.
[2024-04-26 12:10] VITALS: PULSE 94; RESP 17; O2SAT 94
--- NOTE | 2024-04-26 12:42 | DVH ---
INDICATION: pancreatitis TECHNIQUE: Multiple real-time sonographic images of the abdomen were obtained. COMPARISON: None FINDINGS: Liver is increased in echogenicity. The liver measures 10.9 cm. No intrahepatic biliary ductal dilatation is noted. The gallbladder wall measures 0.2 cm and is unremarkable. Cholelithiasis. No pericholecystic flui d or edema. The common duct measures 0.4 cm and is unremarkable. The right kidney measures 9.5 cm. No hydronephrosis. The left kidney measures 8.8 cm. No hydronephros is. Multiple nonobstructing stones in the right kidney measuring up to 1.1 cm. The spleen measures 7.1 cm, within normal limits. The echogenicity is within normal limits. The pancreas is not well visualized due to obscuration from bowel gas. The visualized portions of the IVC and aorta are grossly unremarkable. IMPRESSION: Possible small volume cholelithiasis. Probable multiple nonobstructing stones in the right kidney measuring up to 1.1 cm. Hepatic steatosis.
[2024-04-26] MEDS: SODIUM CHLORIDE 0.9% 1,000 ML IV SCH (13:00)
[2024-04-26] MEDS ORDERED: ONDANSETRON HCL 4 MG/2 ML VIAL IV PRN (13:00)
[2024-04-26 13:55] LABS: Chloride 99 mmol/L (98-107)
[2024-04-26] MEDS: CALCIUM GLUC 1,000mg/50ml-NS 50 ML IV ONE (13:55)
[2024-04-26 13:56] LABS: Anion Gap 18 (5-15)
[2024-04-26 13:57] LABS: Calcium 9.7 mg/dL (8.7-10.4)
[2024-04-26] MEDS: PIPERACILLIN-TAZOB 3.375GM 100 ML IV SCH (14:00)
[2024-04-26 14:01] LABS: BUN/Creatinine Ratio 21.2 (10.0-20.0)
[2024-04-26] MEDS: SODIUM ZIRCONIUM CYCL 10 GM PAK PO ONE (14:03)
[2024-04-26] MEDS: SODIUM BICARB 8.4% 50Meq/50ml SYR INJ IV ONE (14:03)
[2024-04-26] MEDS: DEXTROSE (50%) 50ML SYRG IV ONE ×2 (14:04→14:47)
[2024-04-26 14:07] LABS: Carbon Dioxide 12 mmol/L (20-31); Glucose 52 mg/dL (74-106); Sodium 129 mmol/L (136-145)
[2024-04-26 14:09] LABS: Blood Urea Nitrogen 97 mg/dL (9-23); Potassium 5.8 mmol/L (3.5-5.1)
[2024-04-26] MEDS: SODIUM CHLORIDE 0.9% 2,000 ML IV ONE (15:15)
[2024-04-26] MEDS ORDERED: SODIUM BICARB 8.4% 50Meq/50ml SYR Vial IV ONE (15:30)
[2024-04-26] MEDS ORDERED: DEXTROSE (50%) 50ML SYRG IV ONE (15:30)
[2024-04-26 17:45] LABS: Albumin 3.9 g/dL (3.2-4.8); Alkaline Phosphatase 103 U/L (46-116); Anion Gap 16 (5-15); BUN/Creatinine Ratio 21.7 (10.0-20.0); Bilirubin, Total 0.8 mg/dL (0.2-1.0); Calcium 9.6 mg/dL (8.7-10.4); Total Protein 7.2 g/dL (5.7-8.2)
[2024-04-26 18:05] LABS: Alanine Aminotransferase 40 U/L (7-40); Aspartate Aminotransferase 47 U/L (13-40); Carbon Dioxide 16 mmol/L (20-31); Chloride 96 mmol/L (98-107); Glucose 209 mg/dL (74-106); Sodium 128 mmol/L (136-145)
[2024-04-26 18:06] LABS: Blood Urea Nitrogen 94 mg/dL (9-23)
[2024-04-26] MEDS ORDERED: NITROGLYCERIN 0.4 MG SL TAB SL PRN (18:30)
[2024-04-26] MEDS ORDERED: MORPHINE SULFATE INJ 2 MG/ml SYRG IV PRN (18:30)
[2024-04-26 19:30] VITALS: PULSE 80; RESP 18; O2SAT 99
[2024-04-26] MEDS: InsuLIN REG 1unit/0.01ml Soln (100units/ml) SC SCH (22:00)
[2024-04-26] MEDS: ACCU-CHEK COMFORT CURVE STRIP VI SCH (22:05)
[2024-04-26] MEDS: SODIUM ZIRCONIUM CYCL 10 GM PAK PO SCH (23:16)
--- NOTE | 2024-04-27 00:32 | DVHHP2 ---
ARISTEO MELTON BUILDING DISMANTLER 04/27/24 0032: History of Present Illness Reason for Visit: Abdominal pain History of Present Illness Information in this HPI is limited due to the patient reluctance to participate. 63-year-old female with past medical history of Methamphetamine dependence, hypertension, a fib, CHF, pacemaker Presents with complaints of abdominal pain. During the emergency department evaluation Labs were significant for Na 126, K5.7, B1 132, create in 4.68, troponin 49/48, Lipase 697. Patient admitted for further evaluation and treatment. Cardiovascular: AFIB, CHF, HTN Psych: Addictions Past Social History Patient refusing to verify social history Review of Systems Review of Systems Refusing to complete Review of systems Allergies: Coded Allergies: NO KNOWN ALLERGIES (Unverified , 08/16/12) Medications Current Medications Medications Dose Ordered Sig/Jose Luis Route Start Time Stop Time Status Last Admin Dose Admin Ondansetron HCl 4 mg Q4HPRN PRN IV 04/26/24 13:00 Acetaminophen 650 mg Q4HP PRN PO 04/26/24 13:00 Pantoprazole Sodium 40 mg DAILY@0600 PO 04/27/24 06:00 Sodium Chloride 1,000 ml @ 125 mls/hr Q8H IV 04/26/24 13:00 04/26/24 21:36 125 MLS/HR Piperacillin Sod/ Tazobactam Sod 100 ml @ 25 mls/hr Q12H IV 04/26/24 14:00 04/26/24 14:00 25 MLS/HR Zirconium Oxide 10 gm TID PO 04/26/24 22:00 04/28/24 21:59 04/26/24 23:16 10 GM Nitroglycerin 0.4 mg Q5MINP PRN SL 04/26/24 18:30 Morphine Sulfate 2 mg Q30M PRN IV 04/26/24 18:30 Diagnostic Test (Pha) 1 strip ACHS 04/26/24 22:00 04/26/24 22:05 1 STRIP Insulin Human Regular ACHS SC 04/26/24 22:00 Dextrose 50 ml UD PRN IV 04/26/24 18:30 Exam Vital Signs Vital Signs Date Time Temp Pulse Resp B/P (MAP) Pulse Ox O2 Delivery O2 Flow Rate FiO2 04/26/24 18:00 84 22 130/64 (86) 91 04/26/24 12:10 Nasal Cannula* 2 28 04/26/24 09:30 98.6 98.6 General Appearance: mild distress, Other (Unkept, Ill appearing) HEENT: PERRLA Respiratory: Clear to auscultation Cardiovascular: Regular rate, Normal S1, Normal S2 Abdominal: Normal bowel sounds, Soft Extremities: Normal pulses Skin: No rashes (Significant bruising to left upper extremity) Neuro: Other (Patient refusing to participate) Psych/Mental Status: Other (Non-Cooperative) Labs/Xrays Labs Test 04/26/24 22:03 04/26/24 17:04 04/26/24 12:45 04/26/24 09:40 Range/Units POC Glucose 99 70-106 mg/dl Sodium Level 128 L 136-145 mmol/L Potassium Level 5.0 3.5-5.1 mmol/L Chloride Level 96 L 98-107 mmol/L Carbon Dioxide Level 16 L 20-31 mmol/L Anion Gap 16 H 5-15 Blood Urea Nitrogen 94 *H 9-23 mg/dL Creatinine 4.34 H 0.550-1.02 mg/dL Glomerular Filtration Rate Calc 11 >90 mL/min BUN/Creatinine Ratio 21.7 H 10.0-20.0 Serum Glucose 209 H 74-106 mg/dL Calcium Level 9.6 8.7-10.4 mg/dL Total Bilirubin 0.8 0.2-1.0 mg/dL Aspartate Amino Transferase (AST) 47 H 13-40 U/L Alanine Aminotransferase (ALT) 40 7-40 U/L Alkaline Phosphatase 103 46-116 U/L Total Protein 7.2 5.7-8.2 g/dL Albumin 3.9 3.2-4.8 g/dL Creatine Kinase 177 H 34-145 U/L Troponin I High Sensitivity 46 *H </=34 ng/L White Blood Count 8.6 4.4-10.8 10^3/uL Red Blood Count 5.49 H 4.0-5.20 10^6/uL Hemoglobin 16.9 H 12.2-16.2 g/dL Hematocrit 49.9 H 36.0-46.0 % Mean Corpuscular Volume 91.0 80.0-100.0 fL Mean Corpuscular Hemoglobin 30.7 28.0-32.0 pg Mean Corpuscular Hemoglobin Concent 33.8 32.0-36.0 g/dL Red Cell Distribution Width 14.5 H 11.8-14.3 % Platelet Count 288 140-450 10^3/uL Mean Platelet Volume 8.0 6.9-10.8 fL Neutrophils (%) (Auto) 87.6 H 37.0-80.0 % Lymphocytes (%) (Auto) 6.3 L 10.0-50.0 % Monocytes (%) (Auto) 5.7 0.0-12.0 % Eosinophils (%) (Auto) 0.1 0.0-7.0 % Basophils (%) (Auto) 0.3 0.0-2.0 % Neutrophils # (Auto) 7.5 1.6-8.6 10 ^3/uL Lymphocytes # (Auto) 0.5 0.4-5.4 10 ^3/uL Monocytes # (Auto) 0.5 0-1.3 10 ^3/uL Eosinophils # (Auto) 0 0-0.8 10 ^3/uL Basophils # (Auto) 0 0-0.2 10 ^3/uL Nucleated Red Blood Cells 0.2 % Lipase 697 H 12-53 U/L Assessment/Plan Assessment/Plan Acute Kidney injury, unknown CKD Hyperkalemia Hyponatremia Elevated troponin Pancreatitis Methamphetamine use Hx Pace maker Plan Admit telemetry Consult Nephrology. Monitor BMP. Trend BUN / Creatinine. Renal US. Strict intake and output. Correct electrolytes as needed. Cardiology consult. Echocardiogram. Continue home medications after reconciliation completed. As needed antihypertensives for optimal BP management. Consult gastroenterology. Clear liquid diet. GI PPX protonix / DVT ppx SCD Plan discussed with: Patient Date of Service: Apr 27, 2024 Billing Provider: MARCOS PAINTING MD Common Visit Codes: NOT BILLABLE MARCOS PAINTING MD 04/27/24 1032: Review of Systems Allergies: Coded Allergies: NO KNOWN ALLERGIES (Unverified , 08/16/12) Additional Comments Additional Comments Additional Comments Patient's chart is reviewed. Patient is seen evaluated and admitted by nurse practitioner counselor aide. I have evaluated and seen the patient this afternoon. I agree with the nurse practitioner's evaluation, documentation, assessment and care plan as outlined. ARISTEO MELTON NP Apr 27, 2024 00:32 MARCOS PAINTING MD Apr 27, 2024 10:32
[2024-04-27] MEDS: ACETAMINOPHEN 325 MG TAB PO PRN (01:20)
[2024-04-27 05:30] LABS: Basophils # (auto) 0 10 ^3/uL (0-0.2); Basophils % (auto) 0.2 % (0.0-2.0); Eosinophils # (auto) 0 10 ^3/uL (0-0.8); Eosinophils % (auto) 0.1 % (0.0-7.0); Hematocrit 47.2 % (36.0-46.0); Hemoglobin 15.5 g/dL (12.2-16.2); Lymphocytes # (auto) 0.7 10 ^3/uL (0.4-5.4); Lymphocytes % (auto) 5.6 % (10.0-50.0); Mean Corpuscular Hemoglobin 30.4 pg (28.0-32.0); Mean Corpuscular Hgb Conc. 32.8 g/dL (32.0-36.0); Mean Corpuscular Volume 92.8 fL (80.0-100.0); Monocytes # (auto) 1.5 10 ^3/uL (0-1.3); Monocytes % (auto) 11.6 % (0.0-12.0); Neutrophils # (auto) 10.4 10 ^3/uL (1.6-8.6); Neutrophils % (auto) 82.5 % (37.0-80.0); Nucleated Red Blood Cells % 0.3 %; Platelet Count (auto) 185 10^3/uL (140-450); Red Blood Cells 5.09 10^6/uL (4.0-5.20); Red Cell Distribution Width 14.1 % (11.8-14.3); White Blood Cell 12.6 10^3/uL (4.4-10.8)
[2024-04-27 05:50] LABS: Urine Bacteria None Seen /hpf (None Seen)
[2024-04-27 05:55] LABS: Alkaline Phosphatase 100 U/L (46-116); Anion Gap 16 (5-15); BUN/Creatinine Ratio 32.2 (10.0-20.0); Calcium 9.7 mg/dL (8.7-10.4); Chloride 99 mmol/L (98-107); Potassium 4.5 mmol/L (3.5-5.1)
[2024-04-27] MEDS: DEXTROSE (50%) 50ML SYRG IV PRN (06:10)
[2024-04-27 06:23] LABS: Alanine Aminotransferase 42 U/L (7-40); Aspartate Aminotransferase 58 U/L (13-40); Blood Urea Nitrogen 106 mg/dL (9-23); Carbon Dioxide 18 mmol/L (20-31); Glucose 48 mg/dL (74-106); Lipase 1111 U/L (12-53); Sodium 133 mmol/L (136-145)
[2024-04-27 06:28] LABS: Cannabinoid Screen, Urine Neg (NEGATIVE)
[2024-04-27 06:38] LABS: Urine Blood TRACE /uL (Negative); Urine Clarity Clear (Clear); Urine Color Light-Yellow (Yellow); Urine Protein, UAD Negative (Negative); Urine Specific Gravity 1.016 (1.001-1.035); Urine Urobilinogen Normal (Negative); Urine WBC 1 /hpf (0 - 5)
[2024-04-27] MEDS: PANTOPRAZOLE 40 MG TAB PO SCH (06:44)
[2024-04-27 06:45] LABS: Amphetamine Screen, Urine Pos (NEGATIVE); Barbiturate Scree,Urine Neg (NEGATIVE); Benzodiazephine Screen, Urine Neg (NEGATIVE); Cocaine Screen, Urine Neg (NEGATIVE); Opiate Scree,Urine Neg (NEGATIVE); Phencyclidine Screen, Urine Neg (NEGATIVE)
[2024-04-27] MEDS: PIPERACILLIN-TAZOB 3.375GM 100 ML IV SCH (08:08)
[2024-04-27 09:34] VITALS: PULSE 74; RESP 15; O2SAT 92
[2024-04-27] MEDS: SODIUM ZIRCONIUM CYCL 10 GM PAK PO SCH (09:49)
[2024-04-27] MEDS: ASPirin 81 mg TAB PO SCH (09:49)
[2024-04-27] MEDS: ENOXAPARIN SOD 40 MG/0.4 ML SYRINGE SC ONE (09:50)
--- NOTE | 2024-04-27 12:51 | DVHINCON2 ---
Date of service: Apr 27, 2024 Reason for Consultation Acute kidney injury History of Present Illness 63-year-old elderly white female with past medical history of congestive heart failure presents to the hospital complaining of one week of abdominal pain. She also endorses methamphetamine recent use. She presents to the hospital for the abdominal pain and her labs are notable for elevated potassium and acute kidney injury. She was also noted to have elevated lipase level. Nephrology consulted for acute management. Patient was started on IV fluids due to hypotension and volume depletion. Notable medications include lisinopril, spironolactone, Lasix, amiodarone Past Medical History Congestive heart failure Allergies: Coded Allergies: NO KNOWN ALLERGIES (Unverified , 08/16/12) Home Meds Reported Medications Spironolactone (Spironolactone) 25 Mg Tab, 1 TAB PO DAILY 09/10/23 Potassium Chloride (POTASSIUM CHLORIDE CR) 10 Meq Tb, 8 MEQ PO BID 09/10/23 Clopidogrel Bisulfate (Plavix) 75 Mg Tab, 1 TAB PO DAILY 09/10/23 Aspirin (Aspirin Low Dose) 81 Mg Chw, 1 TAB PO DAILY 09/10/23 Sildenafil Citrate (Viagra) 50 Mg Tab, 20 MG PO TID 09/10/23 Furosemide (Furosemide) 40 Mg Tab, 1 TAB PO DAILY 09/10/23 Amiodarone Hcl (Amiodarone Hcl) 200 Mg Tab, 1 TAB PO DAILY 09/10/23 Lisinopril (Lisinopril) 20 Mg Tab, 1 TAB PO DAILY 09/10/23 Current Medications Current Medications Medications (Trade) Dose Ordered Sig/Jose Luis Route PRN Reason Start Time Stop Time Status Last Admin Pantoprazole Sodium (Protonix Tablet) 40 mg DAILY@0600 PO 04/27/24 06:00 04/27/24 06:44 Piperacillin Sod/ Tazobactam Sod 100 ml @ 25 mls/hr Q12H IV 04/26/24 14:00 04/27/24 01:30 DC 04/26/24 14:00 Zirconium Oxide (Lokelma) 10 gm TID PO 04/26/24 22:00 04/27/24 08:47 DC 04/26/24 23:16 Nitroglycerin (Ntrostat Sublingual) 0.4 mg Q5MINP PRN SL FOR CHEST PAIN 04/26/24 18:30 Morphine Sulfate 2 mg Q30M PRN IV FOR CHEST PAIN 04/26/24 18:30 Diagnostic Test (Pha) (Accu-Chek Comfort Curve T) 1 strip ACHS 04/26/24 22:00 04/27/24 12:44 Insulin Human Regular (InsuLIN R) ACHS SC 04/26/24 22:00 Dextrose 50 ml UD PRN IV Blood Sugar LESS THAN 60 04/26/24 18:30 04/27/24 06:10 Piperacillin Sod/ Tazobactam Sod 100 ml @ 25 mls/hr Q12H IV 04/27/24 08:00 04/27/24 08:08 Zirconium Oxide (Lokelma) 10 gm DAILY PO 04/27/24 10:00 04/27/24 12:49 DC 04/27/24 09:49 Aspirin 81 mg DAILY PO 04/27/24 10:00 04/27/24 09:49 Atorvastatin Calcium (Lipitor) 20 mg HS PO 04/27/24 22:00 Dextrose/Sodium Chloride 1,000 ml @ 100 mls/hr Q10H IV 04/27/24 13:00 04/27/24 13:02 Family History: FHx: uterine cancer G8 MOTHER Social History Methamphetamine abuse Review of Systems Abdominal pain H&P Exam Vital Signs/I&O Vital Sign Date Time Temp Pulse Resp B/P (MAP) Pulse Ox O2 Delivery O2 Flow Rate FiO2 04/27/24 12:00 72 04/27/24 09:34 15 92 Room Air* 0 21 04/27/24 08:00 98.2 109/72 (84) 98.2 Intake and Output 04/26/24 04/27/24 19:00 07:00 Intake Total 775 ml 1475 ml Balance 775 ml 1475 ml Intake IV Total 775 ml 1475 ml Physical Exam Elderly white female Appears malnourished and appears ill Lethargic Has areas of bruising over her bilateral forearms and lower extremities Henriquez catheter has clear yellow urine Non tachycardic Lungs clear to auscultation Labs/Diagnostic Data Labs/Diagnostic Data Laboratory Tests Test 04/27/24 12:38 04/27/24 12:00 04/27/24 09:32 04/27/24 07:09 Range/Units POC Glucose 70 123 H 179 H 70-106 mg/dl Troponin I High Sensitivity 77 *H </=34 ng/L Test 04/27/24 06:38 04/27/24 06:07 04/27/24 05:44 04/27/24 05:14 Range/Units POC Glucose 199 H 48 *L 56 L 63 L 70-106 mg/dl Test 04/27/24 05:00 04/27/24 04:16 04/26/24 22:03 04/26/24 17:04 Range/Units Urine Color Light-yellow Yellow Urine Clarity Clear Clear Urine pH 5.0 5.0-9.0 Urine Specific [place] 1.016 1.001-1.035 Urine Protein Negative Negative Urine Ketones Negative Negative Urine Blood Trace H Negative /uL Urine Nitrite Negative Negative Urine Bilirubin Negative Negative Urine Urobilinogen Normal Negative mg/dL Urine Leukocyte Esterase Negative Negative /uL Urine RBC <1 0 - 4 /hpf Urine WBC 1 0 - 5 /hpf Urine Squamous Epithelial Cells Few <5 /hpf Urine Bacteria None seen None Seen /hpf Urine Glucose Normal Normal mg/dL Urine Opiates Screen Neg NEGATIVE Urine Fentanyl Screen Neg NEGATIVE Urine Barbiturates Screen Neg NEGATIVE Urine Phencyclidine Screen Neg NEGATIVE Urine Amphetamines Screen Pos NEGATIVE Urine Benzodiazepines Screen Neg NEGATIVE Urine Cocaine Screen Neg NEGATIVE Urine Cannabinoids Screen Neg NEGATIVE White Blood Count 12.6 #H 4.4-10.8 10^3/uL Red Blood Count 5.09 4.0-5.20 10^6/uL Hemoglobin 15.5 12.2-16.2 g/dL Hematocrit 47.2 H 36.0-46.0 % Mean Corpuscular Volume 92.8 80.0-100.0 fL Mean Corpuscular Hemoglobin 30.4 28.0-32.0 pg Mean Corpuscular Hemoglobin Concent 32.8 32.0-36.0 g/dL Red Cell Distribution Width 14.1 11.8-14.3 % Platelet Count 185 140-450 10^3/uL Mean Platelet Volume 8.0 6.9-10.8 fL Neutrophils (%) (Auto) 82.5 H 37.0-80.0 % Lymphocytes (%) (Auto) 5.6 L 10.0-50.0 % Monocytes (%) (Auto) 11.6 0.0-12.0 % Eosinophils (%) (Auto) 0.1 0.0-7.0 % Basophils (%) (Auto) 0.2 0.0-2.0 % Neutrophils # (Auto) 10.4 H 1.6-8.6 10 ^3/uL Lymphocytes # (Auto) 0.7 0.4-5.4 10 ^3/uL Monocytes # (Auto) 1.5 H 0-1.3 10 ^3/uL Eosinophils # (Auto) 0 0-0.8 10 ^3/uL Basophils # (Auto) 0 0-0.2 10 ^3/uL Nucleated Red Blood Cells 0.3 % Sodium Level 133 #L 128 L 136-145 mmol/L Potassium Level 4.5 5.0 3.5-5.1 mmol/L Chloride Level 99 96 L 98-107 mmol/L Carbon Dioxide Level 18 L 16 L 20-31 mmol/L Anion Gap 16 H 16 H 5-15 Blood Urea Nitrogen 106 #*H 94 *H 9-23 mg/dL Creatinine 3.29 H 4.34 H 0.550-1.02 mg/dL Glomerular Filtration Rate Calc 15 11 >90 mL/min BUN/Creatinine Ratio 32.2 H 21.7 H 10.0-20.0 Serum Glucose 48 *L 209 H 74-106 mg/dL Calcium Level 9.7 9.6 8.7-10.4 mg/dL Total Bilirubin 1.0 0.8 0.2-1.0 mg/dL Aspartate Amino Transferase (AST) 58 H 47 H 13-40 U/L Alanine Aminotransferase (ALT) 42 H 40 7-40 U/L Alkaline Phosphatase 100 103 46-116 U/L Troponin I High Sensitivity 105 *H </=34 ng/L Total Protein 7.0 7.2 5.7-8.2 g/dL Albumin 4.0 3.9 3.2-4.8 g/dL Lipase 1111 H 12-53 U/L POC Glucose 99 70-106 mg/dl Test 04/26/24 12:45 04/26/24 10:38 04/26/24 09:40 Range/Units Sodium Level 129 L 126 L 136-145 mmol/L Potassium Level 5.8 *H 5.7 *H 3.5-5.1 mmol/L Chloride Level 99 95 L 98-107 mmol/L Carbon Dioxide Level 12 L 15 L 20-31 mmol/L Anion Gap 18 H 16 H 5-15 Blood Urea Nitrogen 97 #*H 132 *H 9-23 mg/dL Creatinine 4.57 H 4.68 H 0.550-1.02 mg/dL Glomerular Filtration Rate Calc 10 10 >90 mL/min BUN/Creatinine Ratio 21.2 H 28.2 H 10.0-20.0 Serum Glucose 52 L 50 L 74-106 mg/dL Calcium Level 9.7 10.3 8.7-10.4 mg/dL Creatine Kinase 177 H 34-145 U/L Troponin I High Sensitivity 46 *H 48 *H 49 *H </=34 ng/L White Blood Count 8.6 4.4-10.8 10^3/uL Red Blood Count 5.49 H 4.0-5.20 10^6/uL Hemoglobin 16.9 H 12.2-16.2 g/dL Hematocrit 49.9 H 36.0-46.0 % Mean Corpuscular Volume 91.0 80.0-100.0 fL Mean Corpuscular Hemoglobin 30.7 28.0-32.0 pg Mean Corpuscular Hemoglobin Concent 33.8 32.0-36.0 g/dL Red Cell Distribution Width 14.5 H 11.8-14.3 % Platelet Count 288 140-450 10^3/uL Mean Platelet Volume 8.0 6.9-10.8 fL Neutrophils (%) (Auto) 87.6 H 37.0-80.0 % Lymphocytes (%) (Auto) 6.3 L 10.0-50.0 % Monocytes (%) (Auto) 5.7 0.0-12.0 % Eosinophils (%) (Auto) 0.1 0.0-7.0 % Basophils (%) (Auto) 0.3 0.0-2.0 % Neutrophils # (Auto) 7.5 1.6-8.6 10 ^3/uL Lymphocytes # (Auto) 0.5 0.4-5.4 10 ^3/uL Monocytes # (Auto) 0.5 0-1.3 10 ^3/uL Eosinophils # (Auto) 0 0-0.8 10 ^3/uL Basophils # (Auto) 0 0-0.2 10 ^3/uL Nucleated Red Blood Cells 0.2 % Total Bilirubin 0.6 0.2-1.0 mg/dL Aspartate Amino Transferase (AST) 50 H 13-40 U/L Alanine Aminotransferase (ALT) 45 H 7-40 U/L Alkaline Phosphatase 119 H 46-116 U/L Total Protein 8.0 5.7-8.2 g/dL Albumin 4.4 3.2-4.8 g/dL Lipase 697 H 12-53 U/L Assessment Acute kidney injury hemodynamically mediated in the setting of volume depletion acute pancreatitis methamphetamine abuse hyperkalemia-> multifactorial likely in the setting of home medications with concurrent kidney injury metabolic acidosis History of congestive heart failure and atrial fibrillation Clinically hypovolemic recommend continued IV fluid hydration Currently trending lipase level Correct electrolytes as needed P.o. potassium and spironolactone and lisinopril will remain on hold at this time Strict Is&Os currently has a Henriquez catheter Plan discussed with: Patient JUSTICE CHAN MD Apr 27, 2024 12:51
[2024-04-27] MEDS: D5W/SOD CHLO 0.9% 1,000 ML IV SCH (13:02)
--- NOTE | 2024-04-27 15:49 | DVHSR ---
APPROVED REPORT EXAM: Two-dimensional and M-mode echocardiogram with Doppler and color Doppler. Blood Pressure: 121/72 mmHg INDICATION CAD RISK FACTORS Height: 60, Weight: 110 DIMENSIONS LVDd4.4 (3.8-5.7cm)LA (2D)4.3 (1.9-4.0cm)Aortic Root2.8 (2.0-3.7cm) LVDs3.8 (2.5-4.0cm)LA (MM) (1.9-4.0cm)Aortic Cusp Exc1.4 (1.5-2.0cm) EF (%) 30.0 (55-70%)Rt. Atrium (1.9-4.0cm)Asc. Aorta cm IVSd1.1 (0.7-1.1cm)RV (D) (1.8-2.4cm) PWd1.3 (0.7-1.1cm) Mitral Valve MitralMitral Stenosis E wave0.54m/sMV Mean GR.mmHg A wave0.69m/sMV Peak GR.mmHg E/A ratio0.82D MVAcm2 DECEL [id number] 1/2 [id number] IVRTmsDop MVA3.03cm2 Aortic Valve Aortic ValveAortic Stenosis V10.83m/Mary Jane Mean GR.7mmHg V21.77m/Mary Jane Peak GR.13mmHg LVOT Diameter2.0 (1.8-2.4cm)Doppler AVA1.47cm2 Pulmonic Valve V21.01m/s Tricuspid Valve TR Velocity3.20m/s [id number] Other Information Technically limited study due to body habitus. Conclusion lvef 30-35% rv pacing lead is present severe chf mild to moderate tricuspid regurg
--- NOTE | 2024-04-27 16:06 | DVHINCON2 ---
Date of service: Apr 27, 2024 History of Present Illness 63 yo F with hx of severe chf ef 10-15%, icd, non compliance, meth addict admitted for gallstone pancreatitis. Past Medical History reviewed Family History: FHx: uterine cancer G8 MOTHER Allergies: Coded Allergies: NO KNOWN ALLERGIES (Unverified , 08/16/12) Home Meds Reported Medications Spironolactone (Spironolactone) 25 Mg Tab, 1 TAB PO DAILY 09/10/23 Potassium Chloride (POTASSIUM CHLORIDE CR) 10 Meq Tb, 8 MEQ PO BID 09/10/23 Clopidogrel Bisulfate (Plavix) 75 Mg Tab, 1 TAB PO DAILY 09/10/23 Aspirin (Aspirin Low Dose) 81 Mg Chw, 1 TAB PO DAILY 09/10/23 Sildenafil Citrate (Viagra) 50 Mg Tab, 20 MG PO TID 09/10/23 Furosemide (Furosemide) 40 Mg Tab, 1 TAB PO DAILY 09/10/23 Amiodarone Hcl (Amiodarone Hcl) 200 Mg Tab, 1 TAB PO DAILY 09/10/23 Lisinopril (Lisinopril) 20 Mg Tab, 1 TAB PO DAILY 09/10/23 Current Medications Current Medications Medications (Trade) Dose Ordered Sig/Jose Luis Route PRN Reason Start Time Stop Time Status Last Admin Pantoprazole Sodium (Protonix Tablet) 40 mg DAILY@0600 PO 04/27/24 06:00 04/27/24 06:44 Zirconium Oxide (Lokelma) 10 gm TID PO 04/26/24 22:00 04/27/24 08:47 DC 04/26/24 23:16 Nitroglycerin (Ntrostat Sublingual) 0.4 mg Q5MINP PRN SL FOR CHEST PAIN 04/26/24 18:30 Morphine Sulfate 2 mg Q30M PRN IV FOR CHEST PAIN 04/26/24 18:30 Diagnostic Test (Pha) (Accu-Chek Comfort Curve T) 1 strip ACHS 04/26/24 22:00 04/27/24 12:44 Insulin Human Regular (InsuLIN R) ACHS SC 04/26/24 22:00 Dextrose 50 ml UD PRN IV Blood Sugar LESS THAN 60 04/26/24 18:30 04/27/24 06:10 Piperacillin Sod/ Tazobactam Sod 100 ml @ 25 mls/hr Q12H IV 04/27/24 08:00 12/4/24 08:08 Zirconium Oxide (Lokelma) 10 gm DAILY PO 04/27/24 10:00 04/27/24 12:49 DC 04/27/24 09:49 Aspirin 81 mg DAILY PO 04/27/24 10:00 04/27/24 09:49 Atorvastatin Calcium (Lipitor) 20 mg HS PO 04/27/24 22:00 Dextrose/Sodium Chloride 1,000 ml @ 100 mls/hr Q10H IV 04/27/24 13:00 04/27/24 13:02 Review of Systems 10 pt ros otherwise negative +abd pain +wounds all over body Vital Signs Vital Signs Date Time Temp Pulse Resp B/P (MAP) Pulse Ox O2 Delivery O2 Flow Rate FiO2 04/27/24 14:00 98.0 73 17 109/72 (84) 96 98.0 04/27/24 09:34 Room Air* 0 21 Physical Exam disheveled, poor dentition, wounds and open wounds/scars all over arms and legs nad s1 s2 rrr Labs/Diagnostic Data Labs Test 04/27/24 12:38 04/27/24 12:00 04/27/24 05:00 04/27/24 04:16 Range/Units POC Glucose 70 70-106 mg/dl Troponin I High Sensitivity 77 *H </=34 ng/L Urine Color Light-yellow Yellow Urine Clarity Clear Clear Urine pH 5.0 5.0-9.0 Urine Specific [place] 1.016 1.001-1.035 Urine Protein Negative Negative Urine Ketones Negative Negative Urine Blood Trace H Negative /uL Urine Nitrite Negative Negative Urine Bilirubin Negative Negative Urine Urobilinogen Normal Negative mg/dL Urine Leukocyte Esterase Negative Negative /uL Urine RBC <1 0 - 4 /hpf Urine WBC 1 0 - 5 /hpf Urine Squamous Epithelial Cells Few <5 /hpf Urine Bacteria None seen None Seen /hpf Urine Glucose Normal Normal mg/dL Urine Opiates Screen Neg NEGATIVE Urine Fentanyl Screen Neg NEGATIVE Urine Barbiturates Screen Neg NEGATIVE Urine Phencyclidine Screen Neg NEGATIVE Urine Amphetamines Screen Pos NEGATIVE Urine Benzodiazepines Screen Neg NEGATIVE Urine Cocaine Screen Neg NEGATIVE Urine Cannabinoids Screen Neg NEGATIVE White Blood Count 12.6 #H 4.4-10.8 10^3/uL Red Blood Count 5.09 4.0-5.20 10^6/uL Hemoglobin 15.5 12.2-16.2 g/dL Hematocrit 47.2 H 36.0-46.0 % Mean Corpuscular Volume 92.8 80.0-100.0 fL Mean Corpuscular Hemoglobin 30.4 28.0-32.0 pg Mean Corpuscular Hemoglobin Concent 32.8 32.0-36.0 g/dL Red Cell Distribution Width 14.1 11.8-14.3 % Platelet Count 185 140-450 10^3/uL Mean Platelet Volume 8.0 6.9-10.8 fL Neutrophils (%) (Auto) 82.5 H 37.0-80.0 % Lymphocytes (%) (Auto) 5.6 L 10.0-50.0 % Monocytes (%) (Auto) 11.6 0.0-12.0 % Eosinophils (%) (Auto) 0.1 0.0-7.0 % Basophils (%) (Auto) 0.2 0.0-2.0 % Neutrophils # (Auto) 10.4 H 1.6-8.6 10 ^3/uL Lymphocytes # (Auto) 0.7 0.4-5.4 10 ^3/uL Monocytes # (Auto) 1.5 H 0-1.3 10 ^3/uL Eosinophils # (Auto) 0 0-0.8 10 ^3/uL Basophils # (Auto) 0 0-0.2 10 ^3/uL Nucleated Red Blood Cells 0.3 % Sodium Level 133 #L 136-145 mmol/L Potassium Level 4.5 3.5-5.1 mmol/L Chloride Level 99 98-107 mmol/L Carbon Dioxide Level 18 L 20-31 mmol/L Anion Gap 16 H 5-15 Blood Urea Nitrogen 106 #*H 9-23 mg/dL Creatinine 3.29 H 0.550-1.02 mg/dL Glomerular Filtration Rate Calc 15 >90 mL/min BUN/Creatinine Ratio 32.2 H 10.0-20.0 Serum Glucose 48 *L 74-106 mg/dL Calcium Level 9.7 8.7-10.4 mg/dL Total Bilirubin 1.0 0.2-1.0 mg/dL Aspartate Amino Transferase (AST) 58 H 13-40 U/L Alanine Aminotransferase (ALT) 42 H 7-40 U/L Alkaline Phosphatase 100 46-116 U/L Total Protein 7.0 5.7-8.2 g/dL Albumin 4.0 3.2-4.8 g/dL Lipase 1111 H 12-53 U/L Test 04/26/24 12:45 Range/Units Creatine Kinase 177 H 34-145 U/L Assessment meth abuse gallstone pancreatitis severe chf with low EF non compliance hx of ICD Plan/Recommendation fu GI and surgical recs check echo ICD not checked in years per pt, pt has no info regarding this either ecg shows SR, ?a paced, with 1 st deg avb Plan discussed with: Patient ANDREA ROMERO MD Apr 27, 2024 16:06
[2024-04-27 16:28] VITALS: PULSE 82; RESP 18; O2SAT 97
[2024-04-27 16:55] VITALS: BP 110/75; PULSE 79; RESP 20; TEMP 97.2; O2SAT 91
--- NOTE | 2024-04-27 17:37 | DVHINCON2 ---
Date of service: Apr 26, 2024 History of Present Illness 63 y/o F pt admitted with abd pain. She is poor historian and sleeping, noted to have multiple echymoses, c/o abd pain. Does not answer questions much. Per RN, no N/V/fever/chills Past Medical History Reviewed Past Surgical History Reviewed Family History: FHx: uterine cancer G8 MOTHER Allergies: Coded Allergies: NO KNOWN ALLERGIES (Unverified , 08/16/12) Home Meds Reported Medications Spironolactone (Spironolactone) 25 Mg Tab, 1 TAB PO DAILY 09/10/23 Potassium Chloride (POTASSIUM CHLORIDE CR) 10 Meq Tb, 8 MEQ PO BID 09/10/23 Clopidogrel Bisulfate (Plavix) 75 Mg Tab, 1 TAB PO DAILY 09/10/23 Aspirin (Aspirin Low Dose) 81 Mg Chw, 1 TAB PO DAILY 09/10/23 Sildenafil Citrate (Viagra) 50 Mg Tab, 20 MG PO TID 09/10/23 Furosemide (Furosemide) 40 Mg Tab, 1 TAB PO DAILY 09/10/23 Amiodarone Hcl (Amiodarone Hcl) 200 Mg Tab, 1 TAB PO DAILY 09/10/23 Lisinopril (Lisinopril) 20 Mg Tab, 1 TAB PO DAILY 09/10/23 Current Medications Current Medications Medications (Trade) Dose Ordered Sig/Jose Luis Route PRN Reason Start Time Stop Time Status Last Admin Pantoprazole Sodium (Protonix Tablet) 40 mg DAILY@0600 PO 04/27/24 06:00 04/27/24 06:44 Zirconium Oxide (Lokelma) 10 gm TID PO 04/26/24 22:00 04/27/24 08:47 DC 04/26/24 23:16 Nitroglycerin (Ntrostat Sublingual) 0.4 mg Q5MINP PRN SL FOR CHEST PAIN 04/26/24 18:30 Morphine Sulfate 2 mg Q30M PRN IV FOR CHEST PAIN 04/26/24 18:30 Diagnostic Test (Pha) (Accu-Chek Comfort Curve T) 1 strip ACHS 04/26/24 22:00 04/27/24 12:44 Insulin Human Regular (InsuLIN R) ACHS SC 04/26/24 22:00 Dextrose 50 ml UD PRN IV Blood Sugar LESS THAN 60 04/26/24 18:30 04/27/24 06:10 Piperacillin Sod/ Tazobactam Sod 100 ml @ 25 mls/hr Q12H IV 04/27/24 08:00 04/27/24 08:08 Zirconium Oxide (Lokelma) 10 gm DAILY PO 04/27/24 10:00 04/27/24 12:49 DC 04/27/24 09:49 Aspirin 81 mg DAILY PO 04/27/24 10:00 04/27/24 09:49 Atorvastatin Calcium (Lipitor) 20 mg HS PO 04/27/24 22:00 Dextrose/Sodium Chloride 1,000 ml @ 100 mls/hr Q10H IV 04/27/24 13:00 04/27/24 13:02 Review of Systems 14 point ROS neg except mentioned above Vital Signs Vital Signs Date Time Temp Pulse Resp B/P (MAP) Pulse Ox O2 Delivery O2 Flow Rate FiO2 04/27/24 16:55 97.2 79 20 110/75 (87) 91 97.2 04/27/24 09:34 Room Air* 0 21 Physical Exam GE: in no distress CVS S1S2 neg Lungs clear Abdomen: soft, nondistended, tender, BS+ Labs/Diagnostic Data Labs Test 04/27/24 12:38 04/27/24 12:00 04/27/24 05:00 04/27/24 04:16 Range/Units POC Glucose 70 70-106 mg/dl Troponin I High Sensitivity 77 *H </=34 ng/L Urine Color Light-yellow Yellow Urine Clarity Clear Clear Urine pH 5.0 5.0-9.0 Urine Specific [place] 1.016 1.001-1.035 Urine Protein Negative Negative Urine Ketones Negative Negative Urine Blood Trace H Negative /uL Urine Nitrite Negative Negative Urine Bilirubin Negative Negative Urine Urobilinogen Normal Negative mg/dL Urine Leukocyte Esterase Negative Negative /uL Urine RBC <1 0 - 4 /hpf Urine WBC 1 0 - 5 /hpf Urine Squamous Epithelial Cells Few <5 /hpf Urine Bacteria None seen None Seen /hpf Urine Glucose Normal Normal mg/dL Urine Opiates Screen Neg NEGATIVE Urine Fentanyl Screen Neg NEGATIVE Urine Barbiturates Screen Neg NEGATIVE Urine Phencyclidine Screen Neg NEGATIVE Urine Amphetamines Screen Pos NEGATIVE Urine Benzodiazepines Screen Neg NEGATIVE Urine Cocaine Screen Neg NEGATIVE Urine Cannabinoids Screen Neg NEGATIVE White Blood Count 12.6 #H 4.4-10.8 10^3/uL Red Blood Count 5.09 4.0-5.20 10^6/uL Hemoglobin 15.5 12.2-16.2 g/dL Hematocrit 47.2 H 36.0-46.0 % Mean Corpuscular Volume 92.8 80.0-100.0 fL Mean Corpuscular Hemoglobin 30.4 28.0-32.0 pg Mean Corpuscular Hemoglobin Concent 32.8 32.0-36.0 g/dL Red Cell Distribution Width 14.1 11.8-14.3 % Platelet Count 185 140-450 10^3/uL Mean Platelet Volume 8.0 6.9-10.8 fL Neutrophils (%) (Auto) 82.5 H 37.0-80.0 % Lymphocytes (%) (Auto) 5.6 L 10.0-50.0 % Monocytes (%) (Auto) 11.6 0.0-12.0 % Eosinophils (%) (Auto) 0.1 0.0-7.0 % Basophils (%) (Auto) 0.2 0.0-2.0 % Neutrophils # (Auto) 10.4 H 1.6-8.6 10 ^3/uL Lymphocytes # (Auto) 0.7 0.4-5.4 10 ^3/uL Monocytes # (Auto) 1.5 H 0-1.3 10 ^3/uL Eosinophils # (Auto) 0 0-0.8 10 ^3/uL Basophils # (Auto) 0 0-0.2 10 ^3/uL Nucleated Red Blood Cells 0.3 % Sodium Level 133 #L 136-145 mmol/L Potassium Level 4.5 3.5-5.1 mmol/L Chloride Level 99 98-107 mmol/L Carbon Dioxide Level 18 L 20-31 mmol/L Anion Gap 16 H 5-15 Blood Urea Nitrogen 106 #*H 9-23 mg/dL Creatinine 3.29 H 0.550-1.02 mg/dL Glomerular Filtration Rate Calc 15 >90 mL/min BUN/Creatinine Ratio 32.2 H 10.0-20.0 Serum Glucose 48 *L 74-106 mg/dL Calcium Level 9.7 8.7-10.4 mg/dL Total Bilirubin 1.0 0.2-1.0 mg/dL Aspartate Amino Transferase (AST) 58 H 13-40 U/L Alanine Aminotransferase (ALT) 42 H 7-40 U/L Alkaline Phosphatase 100 46-116 U/L Total Protein 7.0 5.7-8.2 g/dL Albumin 4.0 3.2-4.8 g/dL Lipase 1111 H 12-53 U/L Test 04/26/24 12:45 Range/Units Creatine Kinase 177 H 34-145 U/L Assessment #Acute biliary pancreatitis #Abnormal CTAP, large diaphragmatic hernia, ??Morgagni #Abdominal pain #Elevated liver enzymes -Aggressive hydration/IVF and supportive care -Monitor liver enzymes -Surgery consult rec, needs lap stephon once stable. Team to eval hernia -Care plan discussed with pt in detail Thank you for the consult. Please contact Dr Bonds if needs GI service. Plan discussed with: Patient TYSON ATKINS MD Apr 27, 2024 17:37
[2024-04-27 20:00] VITALS: PULSE 70; PULSE 78; RESP 18; O2SAT 98
[2024-04-27 21:00] VITALS: BP 122/57; PULSE 78; RESP 18; TEMP 98.5; O2SAT 100
[2024-04-27] MEDS: ATORVASTATIN 20 MG TAB PO SCH (21:49)
[2024-04-28] VITALS (8 sets, daily range): BP systolic 94–129; BP diastolic 61–83; PULSE 62–80; RESP 16–20; TEMP 97.5–98.8; O2SAT 91–98
[2024-04-28 07:39] LABS: Basophils # (auto) 0 10 ^3/uL (0-0.2); Basophils % (auto) 0.4 % (0.0-2.0); Eosinophils # (auto) 0 10 ^3/uL (0-0.8); Eosinophils % (auto) 0.1 % (0.0-7.0); Hemoglobin 15.3 g/dL (12.2-16.2); Lymphocytes # (auto) 0.8 10 ^3/uL (0.4-5.4); Lymphocytes % (auto) 5.9 % (10.0-50.0); Mean Corpuscular Hemoglobin 30.1 pg (28.0-32.0); Mean Corpuscular Hgb Conc. 33.4 g/dL (32.0-36.0); Mean Corpuscular Volume 90.3 fL (80.0-100.0); Monocytes # (auto) 1.3 10 ^3/uL (0-1.3); Monocytes % (auto) 9.8 % (0.0-12.0); Neutrophils # (auto) 10.8 10 ^3/uL (1.6-8.6); Neutrophils % (auto) 83.8 % (37.0-80.0); Nucleated Red Blood Cells % 0.2 %; Platelet Count (auto) 119 10^3/uL (140-450); Red Blood Cells 5.09 10^6/uL (4.0-5.20); Red Cell Distribution Width 14.1 % (11.8-14.3); White Blood Cell 12.9 10^3/uL (4.4-10.8)
[2024-04-28 07:52] LABS: Alanine Aminotransferase 38 U/L (7-40); Alkaline Phosphatase 94 U/L (46-116); Anion Gap 9 (5-15); BUN/Creatinine Ratio 20.8 (10.0-20.0); Calcium 8.9 mg/dL (8.7-10.4); Chloride 106 mmol/L (98-107); Glucose 81 mg/dL (74-106); Potassium 3.9 mmol/L (3.5-5.1)
[2024-04-28 07:53] LABS: Total Protein 6.1 g/dL (5.7-8.2)
[2024-04-28 07:54] LABS: Aspartate Aminotransferase 57 U/L (13-40); Carbon Dioxide 17 mmol/L (20-31); Sodium 132 mmol/L (136-145)
[2024-04-28 08:00] LABS: Blood Urea Nitrogen 33 mg/dL (9-23)
[2024-04-28 09:25] LABS: Lipase 217 U/L (12-53)
--- NOTE | 2024-04-28 13:56 | DVHPN2 ---
Progress Note - Dictate Date Seen: Apr 28, 2024 Medical Necessity Reason Pt with a Central, PICC or Fol: Yes The following are medically ne: Henriquez Catheter vital signs Vital Sign Date Time Temp Pulse Resp B/P (MAP) Pulse Ox O2 Delivery O2 Flow Rate FiO2 04/28/24 09:00 98.0 68 17 112/75 (87) 94 98.0 04/28/24 08:00 Room Air* 0 21 Total Intake and Output 04/27/24 04/27/24 04/28/24 15:00 23:00 07:00 Intake Total 850 ml 0 ml 400 ml Output Total 730 ml 1000 ml 750 ml Balance 120 ml -1000 ml -350 ml medications Current Medications Medications Dose Ordered Sig/Jose Luis Route Start Time Stop Time Status Last Admin Dose Admin Ondansetron HCl 4 mg Q4HPRN PRN IV 04/26/24 13:00 Acetaminophen 650 mg Q4HP PRN PO 04/26/24 13:00 04/27/24 01:20 650 MG Pantoprazole Sodium 40 mg DAILY@0600 PO 04/27/24 06:00 04/28/24 05:54 40 MG Nitroglycerin 0.4 mg Q5MINP PRN SL 04/26/24 18:30 Morphine Sulfate 2 mg Q30M PRN IV 04/26/24 18:30 Diagnostic Test (Pha) 1 strip ACHS 04/26/24 22:00 04/28/24 10:58 1 STRIP Insulin Human Regular ACHS SC 04/26/24 22:00 Dextrose 50 ml UD PRN IV 04/26/24 18:30 04/27/24 06:10 50 ML Piperacillin Sod/ Tazobactam Sod 100 ml @ 25 mls/hr Q12H IV 04/27/24 08:00 04/28/24 07:51 25 MLS/HR Aspirin 81 mg DAILY PO 04/27/24 10:00 04/28/24 09:26 81 MG Atorvastatin Calcium 20 mg HS PO 04/27/24 22:00 04/27/24 21:49 20 MG Dextrose/Sodium Chloride 1,000 ml @ 100 mls/hr Q10H IV 04/27/24 13:00 04/28/24 01:00 100 MLS/HR Enoxaparin Sodium 30 mg DAILY SC 04/29/24 10:00 objective Elderly white female Appears malnourished and appears ill Lethargic Has areas of bruising over her bilateral forearms and lower extremities Henriquez catheter has clear yellow urine Non tachycardic Lungs clear to auscultation laboratory and microbiology Laboratory Tests 04/28/24 06:50 Test 04/28/24 06:50 Range/Units Serum Glucose 81 74-106 mg/dL Assessment/Plan Acute kidney injury hemodynamically mediated in the setting of volume depletion acute pancreatitis methamphetamine abuse hyperkalemia-> multifactorial likely in the setting of home medications with concurrent kidney injury metabolic acidosis History of congestive heart failure and atrial fibrillation CT notes b/l adrenal gland congestion w/o hemorrhage rec monitoring for now renal function improved with fluids continued IV fluid hydration Gi and surgery consulted Correct electrolytes as needed P.o. potassium and spironolactone and lisinopril will remain on hold at this time Strict Is&Os currently has a Henriquez catheter Plan discussed with: Patient JUSTICE CHAN MD Apr 28, 2024 13:56
--- NOTE | 2024-04-28 16:00 | DVHPN2 ---
Progress Note - Dictate Date Seen: Apr 28, 2024 Medical Necessity Reason Pt with a Central, PICC or Fol: Yes The following are medically ne: Henriquez Catheter Subjective Evaluated by drawing in machine tender helper. Patient abdominal symptoms have improved. Lipase has improved. Tolerating clear liquid diet. vital signs Vital Sign Date Time Temp Pulse Resp B/P (MAP) Pulse Ox O2 Delivery O2 Flow Rate FiO2 04/28/24 13:00 98.0 62 17 124/73 (90) 92 98.0 04/28/24 08:00 Room Air* 0 21 Total Intake and Output 04/27/24 04/27/24 04/28/24 15:00 23:00 07:00 Intake Total 850 ml 0 ml 400 ml Output Total 730 ml 1000 ml 750 ml Balance 120 ml -1000 ml -350 ml medications Current Medications Medications Dose Ordered Sig/Jose Luis Route Start Time Stop Time Status Last Admin Dose Admin Ondansetron HCl 4 mg Q4HPRN PRN IV 04/26/24 13:00 Acetaminophen 650 mg Q4HP PRN PO 04/26/24 13:00 04/27/24 01:20 650 MG Pantoprazole Sodium 40 mg DAILY@0600 PO 04/27/24 06:00 04/28/24 05:54 40 MG Nitroglycerin 0.4 mg Q5MINP PRN SL 04/26/24 18:30 Morphine Sulfate 2 mg Q30M PRN IV 04/26/24 18:30 Diagnostic Test (Pha) 1 strip ACHS 04/26/24 22:00 04/28/24 10:58 1 STRIP Insulin Human Regular ACHS SC 04/26/24 22:00 Dextrose 50 ml UD PRN IV 04/26/24 18:30 04/27/24 06:10 50 ML Piperacillin Sod/ Tazobactam Sod 100 ml @ 25 mls/hr Q12H IV 04/27/24 08:00 04/28/24 07:51 25 MLS/HR Aspirin 81 mg DAILY PO 04/27/24 10:00 04/28/24 09:26 81 MG Atorvastatin Calcium 20 mg HS PO 04/27/24 22:00 04/27/24 21:49 20 MG Dextrose/Sodium Chloride 1,000 ml @ 100 mls/hr Q10H IV 04/27/24 13:00 04/28/24 01:00 100 MLS/HR Enoxaparin Sodium 30 mg DAILY SC 04/29/24 10:00 objective Alert awake comfortable in bed without distress. HEENT neck supple no JVD. Heart regular rate and rhythm S1 plus S2. Lungs without rales wheezes. Abdomen soft nontender positive bowel sounds. Extremities no edema. laboratory and microbiology Laboratory Tests 04/28/24 06:50 Test 04/28/24 06:50 Range/Units Serum Glucose 81 74-106 mg/dL Assessment/Plan Continue clear liquid diet. We will have a surgical consultation to see if she would benefit from any gallbladder surgery given gallstones with pancreatitis. Her acute kidney has significantly improved. Patient seen by Cardiology had an echocardiogram shows ejection fraction about 30%. Meantime continue IV fluids pain medications and supportive care and treatment. Further clinical management per clinical course and recommendations from the consultants. Discussed with the nurse and patient regarding care plan at bedside. Problems(with codes): (1) Nausea and vomiting (2) Elevated troponin (3) Hyperkalemia (4) ARF (acute renal failure) (5) Dehydration Plan discussed with: Other MARCOS PAINTING MD Apr 28, 2024 16:00
[2024-04-29] VITALS (7 sets, daily range): BP systolic 96–125; BP diastolic 56–85; PULSE 66–80; RESP 18–20; TEMP 97.3–98.6; O2SAT 94–99
[2024-04-29 06:42] LABS: Basophils # (auto) 0.1 10 ^3/uL (0-0.2); Basophils % (auto) 0.4 % (0.0-2.0); Eosinophils # (auto) 0 10 ^3/uL (0-0.8); Eosinophils % (auto) 0.2 % (0.0-7.0); Hematocrit 44.8 % (36.0-46.0); Hemoglobin 14.9 g/dL (12.2-16.2); Lymphocytes % (auto) 8.3 % (10.0-50.0); Mean Corpuscular Hemoglobin 30.5 pg (28.0-32.0); Mean Corpuscular Hgb Conc. 33.2 g/dL (32.0-36.0); Mean Corpuscular Volume 91.8 fL (80.0-100.0); Monocytes # (auto) 1.3 10 ^3/uL (0-1.3); Monocytes % (auto) 10.7 % (0.0-12.0); Neutrophils # (auto) 9.5 10 ^3/uL (1.6-8.6); Neutrophils % (auto) 80.4 % (37.0-80.0); Nucleated Red Blood Cells % 0.2 %; Platelet Count (auto) 133 10^3/uL (140-450); Red Blood Cells 4.88 10^6/uL (4.0-5.20); Red Cell Distribution Width 13.9 % (11.8-14.3); White Blood Cell 11.8 10^3/uL (4.4-10.8)
[2024-04-29 06:57] LABS: Alanine Aminotransferase 36 U/L (7-40); Albumin 3.3 g/dL (3.2-4.8); Alkaline Phosphatase 104 U/L (46-116); Anion Gap 10 (5-15); BUN/Creatinine Ratio 25.2 (10.0-20.0); Carbon Dioxide 22 mmol/L (20-31); Chloride 105 mmol/L (98-107); Potassium 3.7 mmol/L (3.5-5.1); Sodium 137 mmol/L (136-145)
[2024-04-29 06:58] LABS: Bilirubin, Total 0.9 mg/dL (0.2-1.0); Total Protein 6.1 g/dL (5.7-8.2)
[2024-04-29 07:01] LABS: Aspartate Aminotransferase 45 U/L (13-40); Blood Urea Nitrogen 28 mg/dL (9-23); Glucose 71 mg/dL (74-106); Lipase 169 U/L (12-53)
[2024-04-29] MEDS: ENOXAPARIN SOD 30 MG/0.3 ML SYRINGE SC SCH (09:33)
[2024-04-29] MEDS ORDERED: POTA8TAB38 PO (09:53)
[2024-04-29] MEDS ORDERED: SILD20TA12 PO (09:53)
[2024-04-29] MEDS: D5W/SOD CHLO 0.9% 1,000 ML IV SCH (14:00)
--- NOTE | 2024-04-29 14:51 | DVHPN2 ---
Subjective I am assuming the care of the patient from today onwards. This is a 63-year-old female with a known history of chronic meth use, cardiomyopathy with EF of 30% status post AICD, hypertension, congestive heart failure with systolic dysfunction initially presented to the hospital with the abdominal pain found to have acute pancreatitis gallstone induced. Patient is currently biliary pancreatitis resolved and currently tolerating diet. General surgery was consulted for possible surgical intervention but recommended outpatient follow up. Patient is currently denies any abdominal pain nausea and vomiting requesting to go home. Changes from previous H/P or p: No Changes Objective Vitals Vital Signs Date Time Temp Pulse Resp B/P (MAP) Pulse Ox O2 Delivery O2 Flow Rate FiO2 04/29/24 13:00 97.7 75 18 96/56 (69) 97 97.7 04/28/24 20:00 Room Air* 0 21 Intake/Output Intake and Output 04/29/24 07:00 Intake Total 2100 ml Output Total 1400 ml Balance 700 ml Intake Oral 1500 ml IV Total 600 ml Output Urine Total 1400 ml Exam HEENT pupils are reactive Neck is supple CV is S1-S2 regular rate and rhythm Respiratory bilateral clear GI positive bowel sounds soft nondistended nontender no guarding no rigidity Extremity no edema [employer] no motor deficit Medications Current Medications Medications Dose Ordered Sig/Jose Luis Route Start Time Stop Time Status Last Admin Dose Admin Ondansetron HCl 4 mg Q4HPRN PRN IV 04/26/24 13:00 Acetaminophen 650 mg Q4HP PRN PO 04/26/24 13:00 04/27/24 01:20 650 MG Pantoprazole Sodium 40 mg DAILY@0600 PO 04/27/24 06:00 04/29/24 05:01 40 MG Nitroglycerin 0.4 mg Q5MINP PRN SL 04/26/24 18:30 Morphine Sulfate 2 mg Q30M PRN IV 04/26/24 18:30 Diagnostic Test (Pha) 1 strip ACHS 04/26/24 22:00 04/29/24 06:45 1 STRIP Insulin Human Regular ACHS SC 04/26/24 22:00 Dextrose 50 ml UD PRN IV 04/26/24 18:30 04/27/24 06:10 50 ML Piperacillin Sod/ Tazobactam Sod 100 ml @ 25 mls/hr Q12H IV 04/27/24 08:00 04/29/24 09:32 25 MLS/HR Aspirin 81 mg DAILY PO 04/27/24 10:00 04/29/24 09:33 81 MG Atorvastatin Calcium 20 mg HS PO 04/27/24 22:00 04/28/24 21:03 20 MG Enoxaparin Sodium 30 mg DAILY SC 04/29/24 10:00 04/29/24 09:33 30 MG Dextrose/Sodium Chloride 1,000 ml @ 70 mls/hr [id number] IV 04/29/24 14:00 Mupirocin 1 applic BID EACHNOSTRI 04/29/24 22:00 05/04/24 21:59 Laboratory Results Laboratory Tests 04/29/24 04:57 Chemistry Test 04/29/24 04:57 Albumin 3.3 g/dL (3.2-4.8) Calcium Level 9.0 mg/dL (8.7-10.4) Total Protein 6.1 g/dL (5.7-8.2) Lipid panel Test 04/29/24 04:57 Lipase 169 U/L (12-53) H LFT Test 04/29/24 04:57 Alanine Aminotransferase (ALT) 36 U/L (7-40) Alkaline Phosphatase 104 U/L (46-116) Aspartate Amino Transferase (AST) 45 U/L (13-40) H Total Bilirubin 0.9 mg/dL (0.2-1.0) Urinalysis Test 04/27/24 05:00 Urine Color Light-yellow (Yellow) Urine Clarity Clear (Clear) Urine pH 5.0 (5.0-9.0) Urine Specific [place] 1.016 (1.001-1.035) Urine Protein Negative (Negative) Urine Ketones Negative (Negative) Urine Blood Trace /uL (Negative) H Urine Nitrite Negative (Negative) Urine Bilirubin Negative (Negative) Urine Urobilinogen Normal mg/dL (Negative) Urine Leukocyte Esterase Negative /uL (Negative) Urine RBC <1 /hpf (0 - 4) Urine WBC 1 /hpf (0 - 5) Urine Squamous Epithelial Cells Few /hpf (<5) Urine Bacteria None seen /hpf (None Seen) Urine Glucose Normal mg/dL (Normal) Microbiology Microbiology Date/Time Source Procedure Growth Status 04/27/24 08:00 Nose MRSA Screen - Final Methicillin Resistant S.aureus Complete Assessment/Plan Assessment/Plan 63-year-old female with a known history of chronic methamphetamine use, cardiomyopathy with EF of 30% status post AICD, hypertension initially presented to the hospital with abdominal pain found to have 1. Acute biliary pancreatitis gallstone induced currently resolved currently tolerating diet 2. Cholelithiasis without any evidence of acute cholecystitis, General surgery was consulted outpatient follow up. 3. 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 Hypertension 5. Hyperkalemia suspect secondary to lisinopril and potassium supplement which were held 6. Acute kidney injury suspected secondary to vasomotor nephropathy and medication induced currently resolved -continue diet as tolerated, general surgery was consulted who recommended outpatient follow up. Nephrology already signed off. Plan discussed with: Patient My Orders Orders - PING SANDERSON MD Procedure Category Date Status Time Pt Request For Service PT 04/29/24 Logged 14:36 Problem List: (1) Abdominal pain (2) CHF (congestive heart failure) (3) Hyperkalemia (4) ARF (acute renal failure) Date of Service: Apr 29, 2024 Billing Provider: PING SANDERSON MD Common Visit Codes: NOT BILLABLE PING SANDERSON MD Apr 29, 2024 14:51
--- NOTE | 2024-04-29 16:35 | DVHPN2 ---
Progress Note - Dictate Date Seen: Apr 29, 2024 Medical Necessity Reason Pt with a Central, PICC or Fol: Yes The following are medically ne: Henriquez Catheter Subjective Resting comfortably vital signs Vital Sign Date Time Temp Pulse Resp B/P (MAP) Pulse Ox O2 Delivery O2 Flow Rate FiO2 04/29/24 13:00 97.7 75 18 96/56 (69) 97 97.7 04/28/24 20:00 Room Air* 0 21 Total Intake and Output 04/28/24 04/28/24 04/29/24 15:00 23:00 07:00 Intake Total 100 ml 600 ml 1400 ml Output Total 700 ml 700 ml Balance 100 ml -100 ml 700 ml medications Current Medications Medications Dose Ordered Sig/Jose Luis Route Start Time Stop Time Status Last Admin Dose Admin Ondansetron HCl 4 mg Q4HPRN PRN IV 04/26/24 13:00 Acetaminophen 650 mg Q4HP PRN PO 04/26/24 13:00 04/27/24 01:20 650 MG Pantoprazole Sodium 40 mg DAILY@0600 PO 04/27/24 06:00 04/29/24 05:01 40 MG Nitroglycerin 0.4 mg Q5MINP PRN SL 04/26/24 18:30 Morphine Sulfate 2 mg Q30M PRN IV 04/26/24 18:30 Diagnostic Test (Pha) 1 strip ACHS 04/26/24 22:00 04/29/24 15:01 1 STRIP Insulin Human Regular ACHS SC 04/26/24 22:00 Dextrose 50 ml UD PRN IV 04/26/24 18:30 04/27/24 06:10 50 ML Piperacillin Sod/ Tazobactam Sod 100 ml @ 25 mls/hr Q12H IV 04/27/24 08:00 04/29/24 09:32 25 MLS/HR Aspirin 81 mg DAILY PO 04/27/24 10:00 04/29/24 09:33 81 MG Atorvastatin Calcium 20 mg HS PO 04/27/24 22:00 04/28/24 21:03 20 MG Enoxaparin Sodium 30 mg DAILY SC 04/29/24 10:00 04/29/24 09:33 30 MG Dextrose/Sodium Chloride 1,000 ml @ 70 mls/hr [id number] IV 04/29/24 14:00 Mupirocin 1 applic BID EACHNOSTRI 04/29/24 22:00 05/04/24 21:59 objective Gen: nad heent: nc/at, mmm lungs: cta anteriorly cvs: no rub abd: soft, bowel sounds audible ext: no edema laboratory and microbiology Laboratory Tests 04/29/24 04:57 Test 04/29/24 04:57 Range/Units Serum Glucose 71 L 74-106 mg/dL Assessment/Plan Acute kidney injury hemodynamically mediated in the setting of volume depletion acute pancreatitis methamphetamine abuse hyperkalemia-> multifactorial likely in the setting of home medications with concurrent kidney injury metabolic acidosis History of congestive heart failure and atrial fibrillation CT notes b/l adrenal gland congestion w/o hemorrhage rec monitoring for now Resolving acute kidney injury, no new recommendations from Nephrology perspective. I will sign off her case. Please re-consult as needed. Thank you. Dietary Evaluation Review Comments: Avoid drug, Monitor PO intake to meet 75% of her needs Expected Outcomes/Goals: maintain weight. Plan discussed with: Other WHIT SALCEDO MD Apr 29, 2024 16:35
[2024-04-29] MEDS: MUPIROCIN 2% OINT 15gm or 22gm FOR MRSA NARES EACHNOSTRI SCH (22:29)
[2024-04-30] VITALS (7 sets, daily range): BP systolic 100–136; BP diastolic 59–89; PULSE 64–80; RESP 18–19; TEMP 97.3–98.8; O2SAT 92–99
--- NOTE | 2024-04-30 07:22 | DVHPN2 ---
Progress Note Date Seen: Apr 28, 2024 Medical Necessity Reason Pt with a Central, PICC or Fol: No The following are medically ne: Henriquez Catheter Subjective Patient reports: Other (pt seen and examined, has mild abd pain, vague. denies n/v wants to eat) Review of Systems: HEENT:Normal, CVS:Normal, RESPIRATORY:Normal, GI:Normal, :Normal, MSK:Normal, NEURO:Normal Objective vital signs Vital Sign Date Time Temp Pulse Resp B/P (MAP) Pulse Ox O2 Delivery O2 Flow Rate FiO2 04/30/24 05:00 98.8 68 18 136/89 (105) 92 98.8 04/29/24 20:00 Room Air* 0 21 Total Intake and Output 04/29/24 04/29/24 04/30/24 15:00 23:00 07:00 Intake Total 472 ml 969 ml 700 ml Output Total 400 ml 450 ml Balance 472 ml 569 ml 250 ml medications Current Medications Medications Dose Ordered Sig/Jose Luis Route Start Time Stop Time Status Last Admin Dose Admin Ondansetron HCl 4 mg Q4HPRN PRN IV 04/26/24 13:00 Acetaminophen 650 mg Q4HP PRN PO 04/26/24 13:00 04/27/24 01:20 650 MG Pantoprazole Sodium 40 mg DAILY@0600 PO 04/27/24 06:00 04/30/24 05:53 40 MG Nitroglycerin 0.4 mg Q5MINP PRN SL 04/26/24 18:30 Morphine Sulfate 2 mg Q30M PRN IV 04/26/24 18:30 Diagnostic Test (Pha) 1 strip ACHS 04/26/24 22:00 04/30/24 05:53 1 STRIP Insulin Human Regular ACHS SC 04/26/24 22:00 Dextrose 50 ml UD PRN IV 04/26/24 18:30 04/27/24 06:10 50 ML Piperacillin Sod/ Tazobactam Sod 100 ml @ 25 mls/hr Q12H IV 04/27/24 08:00 04/29/24 20:18 25 MLS/HR Aspirin 81 mg DAILY PO 04/27/24 10:00 04/29/24 09:33 81 MG Atorvastatin Calcium 20 mg HS PO 04/27/24 22:00 04/29/24 22:29 20 MG Enoxaparin Sodium 30 mg DAILY SC 04/29/24 10:00 04/29/24 09:33 30 MG Dextrose/Sodium Chloride 1,000 ml @ 70 mls/hr [id number] IV 04/29/24 14:00 Mupirocin 1 applic BID EACHNOSTRI 04/29/24 22:00 05/04/24 21:59 04/29/24 22:29 1 APPLIC Examination gen; aaox3,nad cvs; [id number] lung; normal effort abd; soft nd mildly ttp in epigastrium no r r g ext; no edema laboratory and microbiology Laboratory Tests 04/29/24 04:57 Test 04/29/24 04:57 Range/Units Serum Glucose 71 L 74-106 mg/dL Microbiology Date/Time Source Procedure Growth Status 04/27/24 08:00 Nose MRSA Screen - Final Methicillin Resistant S.aureus Complete Problem List/Assessment/Plan Problem List/Assessment/Plan 63 yo female with possible gallstone panc no evidence of acute stephon on imaging or exam cld abx monitor clinical status no plans for surgery in presence of pancreatitis further recs to follow based on clinical progression Plan discussed with: Patient My Orders My Orders Orders - JAMES REYES MD Procedure Category Date Status Time Cardiac DIET 04/29/24 Transmitted Diet-2gna,Lofat,Lochol Lunch Dietary Evaluation Review Comments: Avoid drug, Monitor PO intake to meet 75% of her needs Expected Outcomes/Goals: maintain weight. JAMES REYES MD Apr 30, 2024 07:21
--- NOTE | 2024-04-30 07:24 | DVHINCON2 ---
Date of service: Apr 27, 2024 History of Present Illness HPI 63 yo female who presents with abd pain, generalized. has some nausea. denies fc Home Meds Reported Medications Potassium Chloride (Klor-Con 8) 8 Meq Tab, 8 MEQ PO BID, TAB 04/29/24 Sildenafil Citrate (SILDENAFIL CITRATE) 20 Mg Tab, 20 MG PO DAILY@0900, TAB 04/29/24 Spironolactone (Spironolactone) 25 Mg Tab, 1 TAB PO DAILY 09/10/23 Clopidogrel Bisulfate (Plavix) 75 Mg Tab, 1 TAB PO DAILY 09/10/23 Aspirin (Aspirin Low Dose) 81 Mg Chw, 1 TAB PO DAILY 09/10/23 Furosemide (Furosemide) 40 Mg Tab, 1 TAB PO DAILY 09/10/23 Amiodarone Hcl (Amiodarone Hcl) 200 Mg Tab, 1 TAB PO DAILY 09/10/23 Lisinopril (Lisinopril) 20 Mg Tab, 1 TAB PO DAILY 09/10/23 Discontinued Reported Medications Potassium Chloride (POTASSIUM CHLORIDE CR) 10 Meq Tb, 8 MEQ PO BID 09/10/23 Sildenafil Citrate (Viagra) 50 Mg Tab, 20 MG PO TID 09/10/23 Chief Complaint of Abdominal/F: Abdominal pain, Nausea Onset/Duration of Abd/Flank Pa: 24 hours Quality of Abd/Flank Pain: Aching Location of Abdominal Onset: Generalized abdomen Past Medical History Patient Family History: FHx: uterine cancer G8 MOTHER H&P Exam Vital Signs Vital Signs Date Time Temp Pulse Resp B/P (MAP) Pulse Ox O2 Delivery O2 Flow Rate FiO2 04/30/24 05:00 98.8 68 18 136/89 (105) 92 98.8 04/29/24 20:00 Room Air* 0 21 Abdominal Exam: Soft, Other (soft nd mildly ttp in epigastrium no r r g) Labs/Xrays Labs Test 04/30/24 05:55 04/29/24 04:57 04/27/24 18:30 04/27/24 05:00 Range/Units POC Glucose 89 70-106 mg/dl White Blood Count 11.8 H 4.4-10.8 10^3/uL Red Blood Count 4.88 4.0-5.20 10^6/uL Hemoglobin 14.9 12.2-16.2 g/dL Hematocrit 44.8 36.0-46.0 % Mean Corpuscular Volume 91.8 80.0-100.0 fL Mean Corpuscular Hemoglobin 30.5 28.0-32.0 pg Mean Corpuscular Hemoglobin Concent 33.2 32.0-36.0 g/dL Red Cell Distribution Width 13.9 11.8-14.3 % Platelet Count 133 L 140-450 10^3/uL Mean Platelet Volume 8.7 6.9-10.8 fL Neutrophils (%) (Auto) 80.4 H 37.0-80.0 % Lymphocytes (%) (Auto) 8.3 L 10.0-50.0 % Monocytes (%) (Auto) 10.7 0.0-12.0 % Eosinophils (%) (Auto) 0.2 0.0-7.0 % Basophils (%) (Auto) 0.4 0.0-2.0 % Neutrophils # (Auto) 9.5 H 1.6-8.6 10 ^3/uL Lymphocytes # (Auto) 1.0 0.4-5.4 10 ^3/uL Monocytes # (Auto) 1.3 0-1.3 10 ^3/uL Eosinophils # (Auto) 0 0-0.8 10 ^3/uL Basophils # (Auto) 0.1 0-0.2 10 ^3/uL Nucleated Red Blood Cells 0.2 % Sodium Level 137 # 136-145 mmol/L Potassium Level 3.7 3.5-5.1 mmol/L Chloride Level 105 98-107 mmol/L Carbon Dioxide Level 22 20-31 mmol/L Anion Gap 10 5-15 Blood Urea Nitrogen 28 H 9-23 mg/dL Creatinine 1.11 #H 0.550-1.02 mg/dL Glomerular Filtration Rate Calc 55 >90 mL/min BUN/Creatinine Ratio 25.2 H 10.0-20.0 Serum Glucose 71 L 74-106 mg/dL Calcium Level 9.0 8.7-10.4 mg/dL Total Bilirubin 0.9 0.2-1.0 mg/dL Aspartate Amino Transferase (AST) 45 H 13-40 U/L Alanine Aminotransferase (ALT) 36 7-40 U/L Alkaline Phosphatase 104 46-116 U/L Total Protein 6.1 5.7-8.2 g/dL Albumin 3.3 3.2-4.8 g/dL Lipase 169 H 12-53 U/L Troponin I High Sensitivity 67 *H </=34 ng/L Urine Color Light-yellow Yellow Urine Clarity Clear Clear Urine pH 5.0 5.0-9.0 Urine Specific [place] 1.016 1.001-1.035 Urine Protein Negative Negative Urine Ketones Negative Negative Urine Blood Trace H Negative /uL Urine Nitrite Negative Negative Urine Bilirubin Negative Negative Urine Urobilinogen Normal Negative mg/dL Urine Leukocyte Esterase Negative Negative /uL Urine RBC <1 0 - 4 /hpf Urine WBC 1 0 - 5 /hpf Urine Squamous Epithelial Cells Few <5 /hpf Urine Bacteria None seen None Seen /hpf Urine Glucose Normal Normal mg/dL Urine Opiates Screen Neg NEGATIVE Urine Fentanyl Screen Neg NEGATIVE Urine Barbiturates Screen Neg NEGATIVE Urine Phencyclidine Screen Neg NEGATIVE Urine Amphetamines Screen Pos NEGATIVE Urine Benzodiazepines Screen Neg NEGATIVE Urine Cocaine Screen Neg NEGATIVE Urine Cannabinoids Screen Neg NEGATIVE Test 04/26/24 12:45 Range/Units Creatine Kinase 177 H 34-145 U/L Microbiology Date/Time Source Procedure Growth Status 04/27/24 08:00 Nose MRSA Screen - Final Methicillin Resistant S.aureus Complete Assessment/Plan Primary Diagnosis pancreatitis, possible gallstone induced Plan cld abx no signs of acute stephon adat no plans for surgery Plan discussed with: Patient JAMES REYES MD Apr 30, 2024 07:24
--- NOTE | 2024-04-30 12:12 | DVHPN2 ---
Objective Vitals Vital Signs Date Time Temp Pulse Resp B/P (MAP) Pulse Ox O2 Delivery O2 Flow Rate FiO2 04/30/24 09:00 98.0 78 18 124/82 (96) 98 98.0 04/29/24 20:00 Room Air* 0 21 Intake/Output Intake and Output 04/30/24 07:00 Intake Total 2141 ml Output Total 850 ml Balance 1291 ml Intake Oral 2016 ml IV Total 125 ml Output Urine Total 850 ml Medications Current Medications Medications Dose Ordered Sig/Jose Luis Route Start Time Stop Time Status Last Admin Dose Admin Ondansetron HCl 4 mg Q4HPRN PRN IV 04/26/24 13:00 Acetaminophen 650 mg Q4HP PRN PO 04/26/24 13:00 04/27/24 01:20 650 MG Pantoprazole Sodium 40 mg DAILY@0600 PO 04/27/24 06:00 04/30/24 05:53 40 MG Nitroglycerin 0.4 mg Q5MINP PRN SL 04/26/24 18:30 Morphine Sulfate 2 mg Q30M PRN IV 04/26/24 18:30 Diagnostic Test (Pha) 1 strip ACHS 04/26/24 22:00 04/30/24 11:42 1 STRIP Insulin Human Regular ACHS SC 04/26/24 22:00 Dextrose 50 ml UD PRN IV 04/26/24 18:30 04/27/24 06:10 50 ML Piperacillin Sod/ Tazobactam Sod 100 ml @ 25 mls/hr Q12H IV 04/27/24 08:00 04/30/24 08:17 25 MLS/HR Aspirin 81 mg DAILY PO 04/27/24 10:00 04/30/24 10:33 81 MG Atorvastatin Calcium 20 mg HS PO 04/27/24 22:00 04/29/24 22:29 20 MG Enoxaparin Sodium 30 mg DAILY SC 04/29/24 10:00 04/30/24 10:33 30 MG Dextrose/Sodium Chloride 1,000 ml @ 70 mls/hr [id number] IV 04/29/24 14:00 Mupirocin 1 applic BID EACHNOSTRI 04/29/24 22:00 05/04/24 21:59 04/30/24 10:00 1 APPLIC Laboratory Results Laboratory Tests 04/29/24 04:57 Urinalysis Test 04/27/24 05:00 Urine Color Light-yellow (Yellow) Urine Clarity Clear (Clear) Urine pH 5.0 (5.0-9.0) Urine Specific [place] 1.016 (1.001-1.035) Urine Protein Negative (Negative) Urine Ketones Negative (Negative) Urine Blood Trace /uL (Negative) H Urine Nitrite Negative (Negative) Urine Bilirubin Negative (Negative) Urine Urobilinogen Normal mg/dL (Negative) Urine Leukocyte Esterase Negative /uL (Negative) Urine RBC <1 /hpf (0 - 4) Urine WBC 1 /hpf (0 - 5) Urine Squamous Epithelial Cells Few /hpf (<5) Urine Bacteria None seen /hpf (None Seen) Urine Glucose Normal mg/dL (Normal) Microbiology Microbiology Date/Time Source Procedure Growth Status 04/27/24 08:00 Nose MRSA Screen - Final Methicillin Resistant S.aureus Complete CORIE WORLEY MD Apr 30, 2024 12:12
[2024-04-30] MEDS ORDERED: AUG875T PO (17:31)
[2024-04-30] MEDS ORDERED: HYDR-4902 PO (17:31)
--- NOTE | 2024-04-30 18:41 | DVHDS2 ---
Discharge Summary Date of Admission Apr 26, 2024 at 18:16 Date of Discharge: Apr 30, 2024 Labs/Diagnostic Data: Laboratory Results Test 04/30/24 16:50 04/29/24 04:57 04/27/24 18:30 04/27/24 05:00 POC Glucose 140 mg/dl (70-106) White Blood Count 11.8 10^3/uL (4.4-10.8) Red Blood Count 4.88 10^6/uL (4.0-5.20) Hemoglobin 14.9 g/dL (12.2-16.2) Hematocrit 44.8 % (36.0-46.0) Mean Corpuscular Volume 91.8 fL (80.0-100.0) Mean Corpuscular Hemoglobin 30.5 pg (28.0-32.0) Mean Corpuscular Hemoglobin Concent 33.2 g/dL (32.0-36.0) Red Cell Distribution Width 13.9 % (11.8-14.3) Platelet Count 133 10^3/uL (140-450) Mean Platelet Volume 8.7 fL (6.9-10.8) Neutrophils (%) (Auto) 80.4 % (37.0-80.0) Lymphocytes (%) (Auto) 8.3 % (10.0-50.0) Monocytes (%) (Auto) 10.7 % (0.0-12.0) Eosinophils (%) (Auto) 0.2 % (0.0-7.0) Basophils (%) (Auto) 0.4 % (0.0-2.0) Neutrophils # (Auto) 9.5 10 ^3/uL (1.6-8.6) Lymphocytes # (Auto) 1.0 10 ^3/uL (0.4-5.4) Monocytes # (Auto) 1.3 10 ^3/uL (0-1.3) Eosinophils # (Auto) 0 10 ^3/uL (0-0.8) Basophils # (Auto) 0.1 10 ^3/uL (0-0.2) Nucleated Red Blood Cells 0.2 % Sodium Level 137 mmol/L (136-145) Potassium Level 3.7 mmol/L (3.5-5.1) Chloride Level 105 mmol/L (98-107) Carbon Dioxide Level 22 mmol/L (20-31) Anion Gap 10 (5-15) Blood Urea Nitrogen 28 mg/dL (9-23) Creatinine 1.11 mg/dL (0.550-1.02) Glomerular Filtration Rate Calc 55 mL/min (>90) BUN/Creatinine Ratio 25.2 (10.0-20.0) Serum Glucose 71 mg/dL (74-106) Calcium Level 9.0 mg/dL (8.7-10.4) Total Bilirubin 0.9 mg/dL (0.2-1.0) Aspartate Amino Transferase (AST) 45 U/L (13-40) Alanine Aminotransferase (ALT) 36 U/L (7-40) Alkaline Phosphatase 104 U/L (46-116) Total Protein 6.1 g/dL (5.7-8.2) Albumin 3.3 g/dL (3.2-4.8) Lipase 169 U/L (12-53) Troponin I High Sensitivity 67 ng/L (</=34) Urine Color Light-yellow (Yellow) Urine Clarity Clear (Clear) Urine pH 5.0 (5.0-9.0) Urine Specific [place] 1.016 (1.001-1.035) Urine Protein Negative (Negative) Urine Ketones Negative (Negative) Urine Blood Trace /uL (Negative) Urine Nitrite Negative (Negative) Urine Bilirubin Negative (Negative) Urine Urobilinogen Normal mg/dL (Negative) Urine Leukocyte Esterase Negative /uL (Negative) Urine RBC <1 /hpf (0 - 4) Urine WBC 1 /hpf (0 - 5) Urine Squamous Epithelial Cells Few /hpf (<5) Urine Bacteria None seen /hpf (None Seen) Urine Glucose Normal mg/dL (Normal) Urine Opiates Screen Neg (NEGATIVE) Urine Fentanyl Screen Neg (NEGATIVE) Urine Barbiturates Screen Neg (NEGATIVE) Urine Phencyclidine Screen Neg (NEGATIVE) Urine Amphetamines Screen Pos (NEGATIVE) Urine Benzodiazepines Screen Neg (NEGATIVE) Urine Cocaine Screen Neg (NEGATIVE) Urine Cannabinoids Screen Neg (NEGATIVE) Test 04/26/24 12:45 Creatine Kinase 177 U/L (34-145) Other Laboratory Tests 04/29/24 04:57 Brief Hx & Hospital Course: 63-year-old female with a known history of chronic methamphetamine use, cardiomyopathy with EF of 30% status post AICD, hypertension initially presented to the hospital with abdominal pain found to have acute biliary pancreatitis gallstone induced. Patient was kept NPO. Patient does have known history of chronic methamphetamine use. Patient also has a known cardiomyopathy with EF of 30% status post AICD. Patient was seen by GI currently tolerating diet lipase trended down normal. General surgery was consulted recommended outpatient follow up. Patient is currently stable to be discharged. Antibiotics and pain meds for home. Condition at Discharge: Stable Final Diagnosis/Problems List 63-year-old female with a known history of chronic methamphetamine use, cardiomyopathy with EF of 30% status post AICD, hypertension initially presented to the hospital with abdominal pain found to have 1. Acute biliary pancreatitis gallstone induced currently resolved currently tolerating diet 2. Cholelithiasis without any evidence of acute cholecystitis, General surgery was consulted outpatient follow up. 3. 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 Hypertension 5. Hyperkalemia suspect secondary to lisinopril and potassium supplement which were held 6. Acute kidney injury suspected secondary to vasomotor nephropathy and medication induced currently resolved Discharge Disposition: Home SNF Discharge Will this Physician continue t: No Discharge Instruct/Medications Diet: Cardiac 2g Na,low cholest Activity: See Comment Activity comment: No driving, no playing on heavy machinery, no signing legal documents while on narcotics. Follow Up/Referral: Follow up with the PCP in one week Follow up with Dr. Smooth Justice, General surgery in 1-2 weeks Follow up with Nephrology Meseret Hutchinson if needed. Medications: [place], Narcan and Augmentin as prescribed. Discharge Statement: "Patient was advised to return to the ER or call 911 if any headaches, dizziness, shortness of breath, chest pain, abdominal pain, bleeding, fevers, or worsening of medical condition. Patient was counseled about treatment plan, medications, possible side effects, patientverbalized understanding. All questions were answered to the best of my ability. This discharge took greater then 30 minutes in planning, reviewing documentation, counseling the patient, and discussing with other team members." ASSESSMENT ASSESSMENT Assessment 63-year-old female with a known history of chronic methamphetamine use, cardiomyopathy with EF of 30% status post AICD, hypertension initially presented to the hospital with abdominal pain found to have 1. Acute biliary pancreatitis gallstone induced currently resolved currently tolerating diet 2. Cholelithiasis without any evidence of acute cholecystitis, General surgery was consulted outpatient follow up. 3. 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 Hypertension 5. Hyperkalemia suspect secondary to lisinopril and potassium supplement which were held 6. Acute kidney injury suspected secondary to vasomotor nephropathy and medication induced currently resolved Date of Service: Apr 30, 2024 Billing Provider: PING SANDERSON MD Common Visit Codes: NOT BILLABLE PING SANDERSON MD Apr 30, 2024 18:41
== END 2024-04-30 20:00 | disposition home or self-care (01) | DRG 444 ==
LOC: EDBD 08:53 → ER 08:53 → TELE 18:16 → TELE-WESTW 04-27 15:16 → TELE-EAST 04-28 15:24
PROVIDERS: ADMIT Hospitalist; ATTEND Internal Medicine
DX: K80.20 Calculus of gallbladder without cholecystitis without obstruction (principal); K85.10 Biliary acute pancreatitis without necrosis or infection; N17.0 Acute kidney failure with tubular necrosis; E87.1 Hypo-osmolality and hyponatremia; E87.20 Acidosis, unspecified; I42.9 Cardiomyopathy, unspecified; I13.0 Hypertensive heart and chronic kidney disease with heart failure and stage 1 through stage 4 chronic kidney disease, or unspecified chronic kidney disease; R65.10 Systemic inflammatory response syndrome (SIRS) of non-infectious origin without acute organ dysfunction; J96.10 Chronic respiratory failure, unspecified whether with hypoxia or hypercapnia; E87.5 Hyperkalemia; R79.89 Other specified abnormal findings of blood chemistry; E86.9 Volume depletion, unspecified; K44.9 Diaphragmatic hernia without obstruction or gangrene; E86.0 Dehydration; N18.9 Chronic kidney disease, unspecified; I25.10 Atherosclerotic heart disease of native coronary artery without angina pectoris; J44.9 Chronic obstructive pulmonary disease, unspecified; F17.210 Nicotine dependence, cigarettes, uncomplicated; I50.9 Heart failure, unspecified; I95.9 Hypotension, unspecified; E86.1 Hypovolemia; I48.91 Unspecified atrial fibrillation; F15.10 Other stimulant abuse, uncomplicated; R74.8 Abnormal levels of other serum enzymes; Z79.82 Long term (current) use of aspirin; Z79.899 Other long term (current) drug therapy; Z86.73 Personal history of transient ischemic attack (TIA), and cerebral infarction without residual deficits; Z91.199 Patient's noncompliance with other medical treatment and regimen due to unspecified reason; Z95.810 Presence of automatic (implantable) cardiac defibrillator; Z80.49 Family history of malignant neoplasm of other genital organs
CPT/HCPCS: 36415; 71045; 74176; 76700; 80048; 80053; 80307; 81001; 82550; 82962; 83690; 84484; 85025; 87081; 93005; 93306; 94640; 96361; 96374; 97163; 99291; G0378; J1815; J2543; J7042

== ENCOUNTER 2024-06-27 21:06 | Emergency (ER) | payer OTHER, MEDICAID ==
[~2024-06-27] VITALS: Ht 157.5 cm; Wt 51.8 kg
[~2024-06-27 21:06] MED LIST changes: +AUG875T PO; +HYDR-4902 PO; -LISI20TA56 PO; -POTA-36 PO; +SILD20TA12 PO; -SILD50TA PO
--- NOTE | 2024-06-27 21:16 | ED.PDOC ---
GI ASSESSMENT HPI Comments 64 y.o female with PMHx of liver disease, CHF, HTN, [place], presents to the ED via EMS for a chief complaint of upper abdominal pain that presented one day ago. Patient describes pain as sharp, constant, non radiating, and rating a 10/10 on the pain scale. Patient reports similar pain 2 months ago, was seen at this ED and diagnosed with pancreatitis and gallstones. Patient denies any nausea, vomiting, diarrhea, fever or chills. She admits to occasional alcohol and daily tobacco use. Methamphetamine user as well and last used was one day ago. Time Seen by MD: 21:08 Primary Care Provider: Adrian REYES Reviewed Notes: Nurses Notes, Cloth Beamer Notes, Medications, Allergies Allergies: Coded Allergies: NO KNOWN ALLERGIES (Unverified , 08/16/12) Home Meds Active Scripts Hydrocodone-Acetaminophen (Hydrocodone Bitartrate/AC 5-325 mg) 1 Tab Tab, 1 TAB PO Q8HP PRN, #10 TAB Prov:PING SANDERSON MD 04/30/24 Amoxicillin & Pot Clavulanate (AUGMENTIN TABLET) 875 Mg Tb, 875 MG PO BID for 5 Days, #10 TAB Prov:PING SANDERSON MD 04/30/24 Reported Medications Sildenafil Citrate (SILDENAFIL CITRATE) 20 Mg Tab, 20 MG PO DAILY@0900, TAB 04/29/24 Spironolactone (Spironolactone) 25 Mg Tab, 1 TAB PO DAILY 09/10/23 Clopidogrel Bisulfate (Plavix) 75 Mg Tab, 1 TAB PO DAILY 09/10/23 Aspirin (Aspirin Low Dose) 81 Mg Chw, 1 TAB PO DAILY 09/10/23 Furosemide (Furosemide) 40 Mg Tab, 1 TAB PO DAILY 09/10/23 Amiodarone Hcl (Amiodarone Hcl) 200 Mg Tab, 1 TAB PO DAILY 09/10/23 Information Source: Patient, Emergency Med Personnel Mode of Arrival: EMS Timing: Days (1) Duration: Since onset Quality: Sharp Vomitus: None Stool: Normal Severity: Moderate Recent: None Pain Location: Epigastric Modifying Factors: Nothing Associated sign and symptoms: Abdominal Pain Past Medical History PAST MEDICAL HISTORY: CAD, CHF, COPD, CVA, High Lipids, HTN, [place] Surgical History: Pacemaker, PTCA, Tonsillectomy, Tubal Ligation COTTON BALL BAGGER History: No Pertinent COTTON BALL BAGGER History Family History Family History: Reviewed,noncontributory to illness, No family hx of Cancer, No family hx of Heart [place], No family hx of HTN Social History Smoker: Less Than 1 Pack/Day Alcohol: Occasionally Drugs: Marijuana, Methamphetamine Lives In: Home Constitutional: denies: chills, diaphoresis, fatigue, fever, malaise, sweats, weakness, others EENTM: denies: blurred vision, double vision, ear bleeding, ear discharge, ear drainage, ear pain, ear ringing, eye pain, eye redness, hearing loss, mouth pain, mouth swelling, nasal discharge, nose bleeding, nose congestion, nose pain, photophobia, tearing, throat pain, throat swelling, voice changes, others Respiratory: denies: cough, hemoptysis, orthopnea, SOB at rest, shortness of breath, SOB with excertion, stridor, wheezing, others Cardiovascular: denies: chest pain, dizzy spells, diaphoresis, Dyspnea on exertion, edema, irregular heart beat, left arm pain, lightheadedness, palpitations, PND, syncope, others Gastrointestinal: reports: abdominal pain; denies: abdomen distended, blood streaked bowels, constipated, diarrhea, dysphagia, difficulty swallowing, hemate mesis, melena, nausea, poor appetite, poor fluid intake, rectal bleeding, rectal pain, vomiting, others Genitourinary: denies: abnormal vagina bleeding, burning, dyspareunia, dysuria, flank pain, frequency, hematuria, incontinence, pain, , vagina discharge, urgency, others Neurological: denies: dizziness, fainting, headache, left sided numbness, left sided weakness, numbness, paresthesia, pre-existing deficit, right sided numbness, right sided weakness, seizure, speech problems, tingling, tremors, weakness, others Musculoskeletal: denies: back pain, gout, joint pain, joint swelling, muscle pain, muscle stiffness, neck pain, others Integumetry: denies: bruises, change in color, change in hair/nails, dryness, laceration, lesions, lumps, rash, wounds, others Allergic/Immunocompromised: denies: Difficulty Healing, Frequent Infections, Hives, Itching, others Hematologic/Lymphatic: denies: anemia, blood clots, easy bleeding, easy bruising, swollen glands, others Endocrine: denies: excessive hunger, excessive sweating, excessive thirst, excessive urination, flushing, intolerance to cold, intolerance to heat, unexplained weight gain, unexplained weight loss, others Psychiatric: denies: anxiety, bipolar disorder, depression, hopeless, panic disorder, schizophrenia, sleepless, suicidal, others All Other Systems: Reviewed and Negative Physical Exam General Appearance: Moderate Distress HEENT: Normal ENT Inspection, Pharynx Normal, TMs Normal Neck: Full Range of Motion, Non-Tender, Normal, Normal Inspection Respiratory: Chest Non-Tender, Lungs Clear, No Accessory Muscle Use, No Respiratory Distress, Normal Breath Sounds Cardiovascular: No Edema, No JVD, No Murmur, No Gallop, Normal Peripheral Pulses, Regular Rate/Rhythm Breast Exam: Deferred Gastrointestinal: Epigastric, No Organomegaly, No Pulsatile Mass, Normal Bowel Sounds, Soft, Tenderness Genitalia: Deferred Pelvic: Deferred Rectal: Deferred Extremities: No calf tenderness, Normal capillary refill, Normal inspection, Normal range of motion, Non-tender, No pedal edema Musculoskeletal : Apperance: Normal Neurologic: Alert, application integrator II-XII nml as Tested, No Motor Deficits, Normal Affect, Normal Mood, No Sensory Deficits Cerebellar Function: Normal Reflexes: Normal Skin: Dry, Normal Color, Warm Lymphatic: No Adenopathy EKG EKG : Pulse Rate (adult): 64 [place]: Normal Cardiac Rhythm: NSR Block: None ST: Nonsp Was a procedure done? Was a procedure done?: No GI differential Dx Differential Diagnosis: Esophagitis, Gastroenteritis, Hepatitis, Pancreatitis, Drug toxicity X-Ray, Labs, Meds, VS Vital Signs Date Time Temp Pulse Resp B/P (MAP) Pulse Ox O2 Delivery O2 Flow Rate FiO2 06/27/24 21:27 64 06/27/24 21:15 69 06/27/24 21:13 98.7 71 18 146/73 (97) 98 Lab Test 06/27/24 21:20 Range/Units White Blood Count 6.0 4.4-10.8 10^3/uL Red Blood Count 3.59 L 4.0-5.20 10^6/uL Hemoglobin 11.6 L 12.2-16.2 g/dL Hematocrit 35.1 L 36.0-46.0 % Mean Corpuscular Volume 97.8 80.0-100.0 fL Mean Corpuscular Hemoglobin 32.4 H 28.0-32.0 pg Mean Corpuscular Hemoglobin Concent 33.1 32.0-36.0 g/dL Red Cell Distribution Width 17.8 H 11.8-14.3 % Platelet Count 335 140-450 10^3/uL Mean Platelet Volume 7.0 6.9-10.8 fL Neutrophils (%) (Auto) 69.7 37.0-80.0 % Lymphocytes (%) (Auto) 16.4 10.0-50.0 % Monocytes (%) (Auto) 11.4 0.0-12.0 % Eosinophils (%) (Auto) 1.3 0.0-7.0 % Basophils (%) (Auto) 1.2 0.0-2.0 % Neutrophils # (Auto) 4.2 1.6-8.6 10 ^3/uL Lymphocytes # (Auto) 1.0 0.4-5.4 10 ^3/uL Monocytes # (Auto) 0.7 0-1.3 10 ^3/uL Eosinophils # (Auto) 0.1 0-0.8 10 ^3/uL Basophils # (Auto) 0.1 0-0.2 10 ^3/uL Nucleated Red Blood Cells 0.1 % Sodium Level Pending Potassium Level Pending Chloride Level Pending Carbon Dioxide Level Pending Anion Gap Pending Blood Urea Nitrogen Pending Creatinine Pending Glomerular Filtration Rate Calc Pending BUN/Creatinine Ratio Pending Serum Glucose Pending Calcium Level Pending Total Bilirubin Pending Aspartate Amino Transferase (AST) Pending Alanine Aminotransferase (ALT) Pending Alkaline Phosphatase Pending Total Protein Pending Albumin Pending Lipase Pending INDICATION: pancreatitis 04/26/2024 TECHNIQUE: Multiple real-time sonographic images of the abdomen were obtained. IMPRESSION: Possible small volume cholelithiasis. Probable multiple nonobstructing stones in the right kidney measuring up to 1.1 cm. Hepatic steatosis. Procedure: CT CT AB PEL WO CON-NO ORAL OR IV 04/26/2024 10:52 AM IMPRESSION: 1. Findings compatible with acute pancreatitis likely gallstone pancreatitis. Innumerable subcentimeter calcified gallstones are seen in gallbladder lumen. No intrahepatic or extrahepatic ductal dilatation. No pancreatic ductal dilatation. No pseudocyst. 2. Moderate bilateral adrenal congestion that could be a precursor to adrenal hemorrhage. No hemorrhage noted at this time. 3. Large sliding hiatal hernia. 4. Large anterior diaphragmatic hernia containing large portion of transverse colon which is seen anterior to the heart. 5. Mild cardiomegaly. 6. Diffuse atherosclerotic disease. 7. Sigmoid diverticula without diverticulitis. At this time most likely the patient has pancreatitis. The patient's CBC is within normal limits The patient's chemistry panel is pending The patient was being admitted to the hospitalist Time of 1ST Reevaluation: 21:11 Reevaluation 1ST: Unchanged Patient Education/Counseling: Diagnosis, Treatment, Prognosis Family Education/Counseling: No Family Present Departure 1 Departure Time of Disposition: 22:08 Impression: Primary Impression: Intractable abdominal pain Additional Impression: Acute pancreatitis Qualified Codes: K85.90 - Acute pancreatitis without necrosis or infection, unspecified Disposition: 09 ADMITTED INPATIENT Admit to: Med Surg Condition: Fair Critical Care Note Critical Care Time?: No Stability Stability form required: Yes Unstable for transfer: ED Physician Assesment (Clinical assesment) I personally scribed for DENA DE LA ROSA MD ([email or web address]) on 06/27/24 at 21:16. Electronically submitted by Odette Schroeder ([facility]). DENA DE LA ROSA MD Jun 27, 2024 21:16
[2024-06-27 21:33] LABS: Basophils # (auto) 0.1 10 ^3/uL (0-0.2); Basophils % (auto) 1.2 % (0.0-2.0); Eosinophils # (auto) 0.1 10 ^3/uL (0-0.8); Eosinophils % (auto) 1.3 % (0.0-7.0); Hematocrit 35.1 % (36.0-46.0); Hemoglobin 11.6 g/dL (12.2-16.2); Lymphocytes % (auto) 16.4 % (10.0-50.0); Mean Corpuscular Hemoglobin 32.4 pg (28.0-32.0); Mean Corpuscular Hgb Conc. 33.1 g/dL (32.0-36.0); Mean Corpuscular Volume 97.8 fL (80.0-100.0); Monocytes # (auto) 0.7 10 ^3/uL (0-1.3); Monocytes % (auto) 11.4 % (0.0-12.0); Neutrophils # (auto) 4.2 10 ^3/uL (1.6-8.6); Neutrophils % (auto) 69.7 % (37.0-80.0); Nucleated Red Blood Cells % 0.1 %; Platelet Count (auto) 335 10^3/uL (140-450); Red Blood Cells 3.59 10^6/uL (4.0-5.20); Red Cell Distribution Width 17.8 % (11.8-14.3)
[2024-06-27 22:03] LABS: Alanine Aminotransferase 35 U/L (7-40); Albumin 4.5 g/dL (3.2-4.8); Alkaline Phosphatase 97 U/L (46-116); Anion Gap 10 (5-15); Aspartate Aminotransferase 34 U/L (13-40); Bilirubin, Total 0.4 mg/dL (0.2-1.0); Calcium 9.8 mg/dL (8.7-10.4); Glucose 99 mg/dL (74-106); Potassium 4.3 mmol/L (3.5-5.1); Sodium 136 mmol/L (136-145); Total Protein 7.3 g/dL (5.7-8.2)
[2024-06-27 22:14] LABS: Blood Urea Nitrogen 28 mg/dL (9-23); Carbon Dioxide 18 mmol/L (20-31); Chloride 108 mmol/L (98-107)
[2024-06-27 22:33] LABS: Lipase 44 U/L (12-53)
--- NOTE | 2024-06-27 23:39 | DVH ---
Exam: CT CT AB PEL WO CON-NO ORAL OR IV History: pacreatitis with gallstones Comparison Study: None available at time of dictation. TECHNIQUE: Multidetector CT of the abdomen was performed from lung bases to pubic symphysis. Imaging was performed without IV contrast. Axial, coronal and sagittal multiplanar reformats were obtained fr om the axial data set by the technologist. Radiation Dose Information: CT Dose: CTDI volume is 5.74 mGy. Dose-length product is 288.71 mGy*cm FINDINGS: Evaluation of solid organs is limited due to lack of intravenous contrast use. Findings: Lung Bases: No acute or significant lung base finding. Normal heart size. No pleural or pericardial effusion. Liver: The liver is normal in size. No focal lesions. Gallbladder and Biliary Tree: Cholelithiasis. Spleen: Unremarkable Pancreas: Decreased inflammatory changes around the body and tail of the pancreas. No pseudocyst visu alized. Large anterior hiatal hernia unchanged from 04/26/2024 6.4 by 7 cm. Kidneys: Kidneys are grossly normal without calculi or hydronephrosis. Bladder: Grossly unremarkable for degree of distention. Bowel: The stomach is grossly normal in appearance. Small bowel and colon are normal in caliber and d istribution. The appendix is not visualized; however, no secondary findings of acute appendicitis id entified. Ascites: Absent Lymphadenopathy: No mesenteric, retroperitoneal or periportal lymphadenopathy. Abdominal Wall and Mesentery: Unremarkable. Vasculature: The visualized abdominal aorta is normal in size and caliber. Evaluation of abdominal a nd pelvic vessels is limited due to lack of intravenous contrast. Pelvic Organs: Unremarkable Musculoskeletal: No aggressive focal bony lesions, acute fractures or dislocation. Soft tissues: Unremarkable IMPRESSION: 1. Cholelithiasis. 2. Slight decreased inflammatory changes around the pancreas with no findings of pseudocyst or intrap ancreatic ductal dilatation. 3. Stable hiatal hernia Radiation optimization: All CT scans at this facility use at least one of these dose optimization te chniques: automated exposure control mA and/or kV adjustment per patient size (includes targeted exa ms where dose is matched to clinical indication) or iterative reconstruction. HS:Y
[2024-06-28 01:27] VITALS: BP 91/70; PULSE 74; RESP 18; TEMP 97.5; O2SAT 97
[2024-06-28] MEDS: ONDANSETRON HCL 4 MG/2 ML VIAL IV ONE (01:36)
[2024-06-28] MEDS: PANTOPRAZOLE 40 MG/10 ML VIAL INJ IV ONE (01:36)
[2024-06-28] MEDS: SODIUM CHLORIDE 0.9% 500 ML IVB ONE (01:36)
[2024-06-28] MEDS: MORPHINE SULFATE 4 MG/ML SYR/VIAL IV ONE ×2 (01:37→01:42)
--- NOTE | 2024-06-28 02:04 | DVHINCON2 ---
MIRANDA WICK [facility] 06/28/24 0204: Date of service: Jun 28, [address] Frias Reason for Consultation Medical Management History of Present Illness Mrs. Ember Rodríguez is a 64 y.o female with a history of liver disease, CHF, HTN, [place], presents with a chief complaint of upper abdominal pain that presented one day ago. Patient describes pain as sharp, constant, non radiating, and rating a 10/10 on the pain scale. Patient reports similar pain 2 months ago, was seen at this ED and diagnosed with pancreatitis and gallstones. Patient denies any nausea, vomiting, diarrhea, fever or chills. She admits to occasional alcohol and daily tobacco use. Methamphetamine user as well and last used was one day ago. Patient CT abdomen and pelvis resulted 1. Cholelithiasis. 2. Slight decreased inflammatory changes around the pancreas with no findings of pseudocyst or intrapancreatic ductal dilatation. 3. Stable hiatal hernia. Patient Na 136, K 4.3, BUN 28/1.40, AST 34, ALT 35, ALP 97, Lipase 44, WBC 6.0, H&H 11.6/35.1, Platelets 535. 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 [employer] History Past Surgical History none reported Family History: FHx: uterine cancer G8 MOTHER Family History Family History: Reviewed,noncontributory to illness, No family hx of Cancer, No family hx of Heart [place], No family hx of HTN Social History Smoker: Less Than 1 Pack/Day Alcohol: Occasionally Drugs: Marijuana, Methamphetamine Lives In: Home Allergies: Coded Allergies: NO KNOWN ALLERGIES (Unverified , 08/16/12) Home Meds Active Scripts Hydrocodone-Acetaminophen (Hydrocodone Bitartrate/AC 5-325 mg) 1 Tab Tab, 1 TAB PO Q8HP PRN, #10 TAB Prov:PING SANDERSON MD 04/30/24 Amoxicillin & Pot Clavulanate (AUGMENTIN TABLET) 875 Mg Tb, 875 MG PO BID for 5 Days, #10 TAB Prov:PING SANDERSON MD 04/30/24 Reported Medications Sildenafil Citrate (SILDENAFIL CITRATE) 20 Mg Tab, 20 MG PO DAILY@0900, TAB 12/6/24 Spironolactone (Spironolactone) 25 Mg Tab, 1 TAB PO DAILY 09/10/23 Clopidogrel Bisulfate (Plavix) 75 Mg Tab, 1 TAB PO DAILY 09/10/23 Aspirin (Aspirin Low Dose) 81 Mg Chw, 1 TAB PO DAILY 09/10/23 Furosemide (Furosemide) 40 Mg Tab, 1 TAB PO DAILY 09/10/23 Amiodarone Hcl (Amiodarone Hcl) 200 Mg Tab, 1 TAB PO DAILY 09/10/23 Review of Systems Constitutional: denies: chills, diaphoresis, fatigue, fever, malaise, sweats, weakness, others EENTM: denies: blurred vision, double vision, ear bleeding, ear discharge, ear drainage, ear pain, ear ringing, eye pain, eye redness, hearing loss, mouth pain, mouth swelling, nasal discharge, nose bleeding, nose congestion, nose pain, photophobia, tearing, throat pain, throat swelling, voice changes, others Respiratory: denies: cough, hemoptysis, orthopnea, SOB at rest, shortness of breath, SOB with excertion, stridor, wheezing, others Cardiovascular: denies: chest pain, dizzy spells, diaphoresis, Dyspnea on exertion, edema, irregular heart beat, left arm pain, lightheadedness, palpitations, PND, syncope, others Gastrointestinal: reports: abdominal pain; denies: abdomen distended, blood streaked bowels, constipated, diarrhea, dysphagia, difficulty swallowing, hematemesis, melena, nausea, poor appetite, poor fluid intake, rectal bleeding, rectal pain, vomiting, others Genitourinary: denies: abnormal vagina bleeding, burning, dyspareunia, dysuria, flank pain, frequency, hematuria, incontinence, pain, , vagina discharge, urgency, others Neurological: denies: dizziness, fainting, headache, left sided numbness, left sided weakness, numbness, paresthesia, pre-existing deficit, right sided numbness, right sided weakness, seizure, speech problems, tingling, tremors, weakness, others Musculoskeletal: denies: back pain, gout, joint pain, joint swelling, muscle pain, muscle stiffness, neck pain, others Integumetry: denies: bruises, change in color, change in hair/nails, dryness, laceration, lesions, lumps, rash, wounds, others Allergic/Immunocompromised: denies: Difficulty Healing, Frequent Infections, Hives, Itching, others Hematologic/Lymphatic: denies: anemia, blood clots, easy bleeding, easy bruising, swollen glands, others Endocrine: denies: excessive hunger, excessive sweating, excessive thirst, excessive urination, flushing, intolerance to cold, intolerance to heat, unexplained weight gain, unexplained weight loss, others Psychiatric: denies: anxiety, bipolar disorder, depression, hopeless, panic disorder, schizophrenia, sleepless, suicidal, others All Other Systems: Reviewed and Negative Vital Signs Vital Signs Date Time Temp Pulse Resp B/P (MAP) Pulse Ox O2 Delivery O2 Flow Rate FiO2 06/28/24 01:27 97.5 74 18 91/70 (77) 97 97.5 06/28/24 01:24 Room Air* 0 21 Physical Exam General Appearance: Moderate Distress HEENT: Normal ENT Inspection, Pharynx Normal, TMs Normal Neck: Full Range of Motion, Non-Tender, Normal, Normal Inspection Respiratory: Chest Non-Tender, Lungs Clear, No Accessory Muscle Use, No Respiratory Distress, Normal Breath Sounds Cardiovascular: No Edema, No JVD, No Murmur, No Gallop, Normal Peripheral Pulses, Regular Rate/Rhythm Breast Exam: Deferred Gastrointestinal: Epigastric, No Organomegaly, No Pulsatile Mass, Normal Bowel Sounds, Soft, Tenderness Genitalia: Deferred Pelvic: Deferred Rectal: Deferred Extremities: No calf tenderness, Normal capillary refill, Normal inspection, Normal range of motion, Non-tender, No pedal edema Musculoskeletal : Apperance: Normal Neurologic: Alert, scrap baler II-XII nml as Tested, No Motor Deficits, Normal Affect, Normal Mood, No Sensory Deficits Cerebellar Function: Normal Reflexes: Normal Skin: Dry, Normal Color, Warm Lymphatic: No Adenopathy Labs/Diagnostic Data Labs Test 06/27/24 21:20 Range/Units White Blood Count 6.0 4.4-10.8 10^3/uL Red Blood Count 3.59 L 4.0-5.20 10^6/uL Hemoglobin 11.6 L 12.2-16.2 g/dL Hematocrit 35.1 L 36.0-46.0 % Mean Corpuscular Volume 97.8 80.0-100.0 fL Mean Corpuscular Hemoglobin 32.4 H 28.0-32.0 pg Mean Corpuscular Hemoglobin Concent 33.1 32.0-36.0 g/dL Red Cell Distribution Width 17.8 H 11.8-14.3 % Platelet Count 335 140-450 10^3/uL Mean Platelet Volume 7.0 6.9-10.8 fL Neutrophils (%) (Auto) 69.7 37.0-80.0 % Lymphocytes (%) (Auto) 16.4 10.0-50.0 % Monocytes (%) (Auto) 11.4 0.0-12.0 % Eosinophils (%) (Auto) 1.3 0.0-7.0 % Basophils (%) (Auto) 1.2 0.0-2.0 % Neutrophils # (Auto) 4.2 1.6-8.6 10 ^3/uL Lymphocytes # (Auto) 1.0 0.4-5.4 10 ^3/uL Monocytes # (Auto) 0.7 0-1.3 10 ^3/uL Eosinophils # (Auto) 0.1 0-0.8 10 ^3/uL Basophils # (Auto) 0.1 0-0.2 10 ^3/uL Nucleated Red Blood Cells 0.1 % Sodium Level 136 136-145 mmol/L Potassium Level 4.3 3.5-5.1 mmol/L Chloride Level 108 H 98-107 mmol/L Carbon Dioxide Level 18 L 20-31 mmol/L Anion Gap 10 5-15 Blood Urea Nitrogen 28 H 9-23 mg/dL Creatinine 1.40 H 0.550-1.02 mg/dL Glomerular Filtration Rate Calc 41 >90 mL/min BUN/Creatinine Ratio 20.0 10.0-20.0 Serum Glucose 99 74-106 mg/dL Calcium Level 9.8 8.7-10.4 mg/dL Total Bilirubin 0.4 0.2-1.0 mg/dL Aspartate Amino Transferase (AST) 34 13-40 U/L Alanine Aminotransferase (ALT) 35 7-40 U/L Alkaline Phosphatase 97 46-116 U/L Total Protein 7.3 5.7-8.2 g/dL Albumin 4.5 3.2-4.8 g/dL Lipase 44 12-53 U/L Assessment This is a 64 yo female with known history of CHF, Hypertension, [place], methamphetamine use, Liver disease who presents to the hospital with abdominal pain. Patient CT abdomen and pelvis resulted 1. Cholelithiasis. 2. Slight decreased inflammatory changes around the pancreas with no findings of ps eudocyst or intrapancreatic ductal dilatation. 3. Stable hiatal hernia. Patient Na 136, K 4.3, BUN 28/1.40, AST 34, ALT 35, ALP 97, Lipase 44, WBC 6.0, H&H 11.6/35.1, Platelets 535. Problems(with codes): (1) Abdominal pain Plan/Recommendation Patient Lipase level 44 CT abd/pelvis with no acute findings, WBC 6 patient afebrile. Patient does not meet admission criteria at this time. Recommend follow up with PCP , outpatient follow up with gastroenterology. Discussed all above with patient in the ED who verbalizes agreement and understanding of recommendations. Discussed outpatient follow up PCP and GI appointments with O insurance CM. Discussed assessment and recommendations with supervising MD . Plan discussed with: Patient, Other PING SANDERSON MD 06/29/24 1637: Date of service: Jun 28, 2024 Family History: FHx: uterine cancer G8 MOTHER Allergies: Coded Allergies: NO KNOWN ALLERGIES (Unverified , 08/16/12) Home Meds Active Scripts Hydrocodone-Acetaminophen (Hydrocodone Bitartrate/AC 5-325 mg) 1 Tab Tab, 1 TAB PO Q8HP PRN, #10 TAB Prov:PING SANDERSON MD 04/30/24 Amoxicillin & Pot Clavulanate (AUGMENTIN TABLET) 875 Mg Tb, 875 MG PO BID for 5 Days, #10 TAB Prov:PING SANDERSON MD 04/30/24 Reported Medications Sildenafil Citrate (SILDENAFIL CITRATE) 20 Mg Tab, 20 MG PO DAILY@0900, TAB 04/29/24 Spironolactone (Spironolactone) 25 Mg Tab, 1 TAB PO DAILY 09/10/23 Clopidogrel Bisulfate (Plavix) 75 Mg Tab, 1 TAB PO DAILY 09/10/23 Aspirin (Aspirin Low Dose) 81 Mg Chw, 1 TAB PO DAILY 09/10/23 Furosemide (Furosemide) 40 Mg Tab, 1 TAB PO DAILY 09/10/23 Amiodarone Hcl (Amiodarone Hcl) 200 Mg Tab, 1 TAB PO DAILY 09/10/23 Additional Comments Additional Comments Additional Comments Patient being discharged under stable condition with close follow up as an outpatient with the PCP in 1 week. MIRANDA WICK Jun 28, 2024 02:04 PING SANDERSON MD Jun 29, 2024 16:37
--- NOTE | 2024-06-28 06:43 | ECG ---
[facility] Test Date: 2024-06-27 Test Time: 21:15:18 Pat Name: WILLIAMS PARKINSON Department: ED Room: Gender: F Rn Cvor: GM : 1960 Requested By: DENA DE LA ROSA Order Number: [id number] Reading MD: Gopal Gibbs Measurements Intervals Kinzers Rate: 69 P: 76 HI: 190 QRS: 6 QRSD: 139 T: 85 QT: 495 QTc: 531 Interpretive Statements Sinus rhythm Ventricular premature complex Nonspecific intraventricular conduction delay Abnormal inferior Q waves Probable lateral infarct, old Electronically Signed On 06-28-2024 17:51:00 PST by Gopal Gibbs Please click the below link to view image of tracing.
== END 2024-06-28 02:36 | disposition home or self-care (01) ==
LOC: ER 21:06 → EDBD 21:06 → ER 06-28 02:36
DX: K85.90 Acute pancreatitis without necrosis or infection, unspecified (principal); R10.10 Upper abdominal pain, unspecified; J44.9 Chronic obstructive pulmonary disease, unspecified; E78.5 Hyperlipidemia, unspecified; I11.0 Hypertensive heart disease with heart failure; I50.89 Other heart failure; F15.90 Other stimulant use, unspecified, uncomplicated; Z86.73 Personal history of transient ischemic attack (TIA), and cerebral infarction without residual deficits; Z98.890 Other specified postprocedural states; Z90.89 Acquired absence of other organs; Z79.899 Other long term (current) drug therapy; Z79.84 Long term (current) use of oral hypoglycemic drugs
CPT/HCPCS: 36415; 74176; 80053; 83690; 85025; 93005; 96374; 96375; 99285; J2270; J2405; J2470; J7040

== ENCOUNTER 2024-09-28 11:57 | Inpatient (IN) | payer OTHER, MEDICAID ==
[~2024-09-28] VITALS: Ht 154.9 cm; Wt 51.5 kg
[2024-09-28] VITALS (8 sets, daily range): BP systolic 94–128; BP diastolic 58–78; PULSE 60–63; RESP 13–18; TEMP 97.6–98.7; O2SAT 92–100
[~2024-09-28 11:57] MED LIST changes: -AUG875T PO; -HYDR-4902 PO; +POTA8TAB38 PO; +SACU1TAB PO
[2024-09-28] MEDS: IODIXANOL 320MG/ML 100ML BTL IV ONE (18:28)
[2024-09-28] MEDS: LIDOCAINE 2%HCL (LOCAL ANESTH.) INJ 20ML MDV ONE (18:58)
[2024-09-28] MEDS: SODIUM CHL 0.9% 0 ML ONE (18:58)
[2024-09-28] MEDS: ANGIOMAX 250 MG VIAL IV ONE (18:58)
[2024-09-28] MEDS: fentaNYL CITRATE 100 MCG/2 ML VL ONE (18:58)
[2024-09-28] MEDS: MIDAZOLAM HCL 2MG/2ML 2ml VIAL (1mg/ml) ONE (18:58)
--- NOTE | 2024-09-28 20:05 | DVHOP2 ---
Operative Report - 2 Report Details Date: 09/28/24 Preop Diagnosis: Pulmonary hypertension. Coronary artery disease. Cardiomyopathy. Postop Diagnosis: Severe CAD. Ischemic cardiomyopathy. Moderate pulmonary hypertension. Surgeon: Sabra Gibbs MD Anesthesiologist: Conscious sedation Anesthesia: Mac, Local Consent: The patient was informed of the risks and benefits of the procedure. These include but are not limited to complications of anesthesia, postoperative infection, incomplete relief of symptoms, recurrence of symptoms, damage to blood vessels, nerves and tendons, deep venous thrombosis, pulmonary embolism and possible need for repeat surgery in the future. Complications: No complications Estimated Blood Loss: 5 cc Findings: Severe CAD. Cardiomyopathy. Chronic pulmonary hypertension Indications for Surgery: Chest pain. Pulmonary hypertension. Name of Procedure Performed Bilateral cine coronary angiography left ventriculography. Right and left heart catheterization. Procedure Details Procedure Details: Prior local anesthesia with 2% lidocaine to the right groin full informed consent obtained the patient was prepped and draped in usual fashion followed by placement of a six [place] sheath into the right femoral vein and a six [place] sheath into the right femoral artery through which a [place]-Deanne catheter was advanced into the right atrium right ventricle, pulmonary artery and capillary wedge pressure positions where pressures were obtained and recorded. O2 saturations were not obtained. Cardiac outputs were determined by the thermodilution technique in triplicate. Through the femoral artery a six [place] sheath was then placed as well as Mireya catheters to cannulate both right and left coronary ostium. A right coronary catheter would not cannulate the aberrant origin of the RCA coming off the left coronary cusp. Ventriculography was performed in the HALE projection Hemodynamics aortic blood pressure was 90 over 60 with a mean of 72. Left ventricular pressure was 87/2. There was no gradient across the aortic valve on pullback. PA pressure was 48/18 with a mean of 31 right ventricular pressure was 40 over to a right atrial pressure was two. Capillary wedge pressure was nine. Cardiac output was 2.3. L/min. Coronary anatomy: The RCA comes off the left coronary cusp. It is 100% occluded at its mid sec tion with intracoronary collaterals into the distal RCA faintly. The left main is large. It has no stenosis in its proximal mid section. Distal left main involving the circumflex and ostium of the LAD is 85%. The circumflex itself is free of significant disease. Two obtuse marginal branches noted. The left anterior descending is a large vessel with no stenosis in its mid or distal segments. Collateralization is noted to the distal RCA and posterolateral branch. Ventriculography in the HALE projection shows EF of about 30%. Impression: Normal left ventricular end-diastolic pressure at rest. Decreased left ventricular ejection fraction. Moderate pulmonary hypertension. Severe left main disease. Occluded RCA. Recommendations: Patient appears to be very frail with the associated severe cardiomyopathy. Consideration to medical therapy versus coronary bypass grafting. Condition Guarded Disposition Still a Patient Date of Service: September 28, 2024 Billing Provider: SABRA GIBBS Sr., MD Cardiology Common Codes: 54309-BFAAOEK INP/OBS CARE (High) Cardiology Procedure Codes: 37716-TJHG HEART CATH W/INTRA INJ, 95753-N/R & L HEART CATH FOR LVG, 64206-PHN & PLCMT OF FLOW DIR CATH SABRA GIBBS Sr., MD September 28, 2024 20:05
[2024-09-29 01:00] VITALS: BP 90/65; PULSE 68; RESP 18; TEMP 97.3; O2SAT 96
[2024-09-29 06:17] VITALS: BP 115/69; PULSE 64; RESP 17; TEMP 97.4; O2SAT 97
[2024-09-29 08:00] VITALS: PULSE 60; PULSE 64; RESP 18; O2SAT 99
[2024-09-29 09:00] VITALS: BP 107/62; PULSE 64; RESP 17; TEMP 98.1; O2SAT 99
[2024-09-29] MEDS: FUROSEMIDE 40 MG TAB PO SCH (10:02)
[2024-09-29] MEDS: CLOPIDOGREL BISULFATE 75 MG TAB PO SCH (10:02)
[2024-09-29] MEDS: SILDENAFIL CITRATE 20 MG TAB PO SCH (10:03)
[2024-09-29] MEDS: AMIODARONE HCL 200 MG TAB PO SCH (10:04)
[2024-09-29] MEDS: SPIRONOLACTONE 25 MG TAB PO SCH (10:04)
[2024-09-29] MEDS: ASPirin 81 mg TAB PO SCH (10:04)
[2024-09-29] MEDS: SACUBITRIL-VALSARTAN 24mg/26mg TAB PO SCH (10:04)
[2024-09-29] MEDS: POTASSIUM CHLORIDE 8 MEQ TAB PO SCH (10:04)
--- NOTE | 2024-09-29 12:12 | DVHHP2 ---
History of Present Illness Reason for Visit: Heart catheterization for pulmonary hypertension History of Present Illness 64-year-old female with a known history of pulmonary hypertension, ischemic ca rdiomyopathy, coronary artery disease status post PCI with stents, chronic methamphetamine use who initially presented to the hospital as an elective procedure. Patient is currently denies any chest pain shortness of breath. Patient has a chronic meth amphetamine user, quit one week ago. Denies any fevers chills cough or phlegm. Cardiovascular: CAD, CHF, HTN Past Surgical History: Other (Coronary artery disease status post PCI with stents, status post AICD) Drugs: Other (Methamphetamine.) Review of Systems Review of Systems Twelve review of system are negative besides mentioned above. Allergies: Coded Allergies: NO KNOWN ALLERGIES (Unverified , 09/23/24) Medications Current Medications Medications Dose Ordered Sig/Jose Luis Route Start Time Stop Time Status Last Admin Dose Admin Aspirin 81 mg DAILY PO 09/29/24 10:00 09/29/24 10:04 81 MG Clopidogrel Bisulfate 75 mg DAILY PO 09/29/24 10:00 09/29/24 10:02 75 MG Amiodarone HCl 200 mg DAILY PO 09/29/24 10:00 09/29/24 10:04 200 MG Furosemide 40 mg DAILY PO 09/29/24 10:00 09/29/24 10:02 40 MG Potassium Chloride 8 meq DAILY PO 09/29/24 10:00 09/29/24 10:04 8 MEQ Spironolactone 25 mg DAILY PO 09/29/24 10:00 09/29/24 10:04 25 MG Sacubitril/ Valsartan 1 tab DAILY PO 09/29/24 10:00 09/29/24 10:04 1 TAB Sildenafil Citrate 20 mg DAILY PO 09/29/24 10:00 09/29/24 10:03 20 MG Exam Vital Signs Vital Signs Date Time Temp Pulse Resp B/P (MAP) Pulse Ox O2 Delivery O2 Flow Rate FiO2 09/29/24 10:02 107/62 09/29/24 09:00 98.1 64 17 99 98.1 09/29/24 08:00 Room Air* 0 21 Exam HEENT pupils are reactive Neck is supple CVS S1-S2 regular rate and rhythm Respiratory bilateral clear GI positive bowel sound Extremity no pedal edema 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 1. Coronary artery disease status post PCI, status post left carotid right heart catheterization shows under personal RCA occlusion /severe left main disease 2. Moderate pulmonary hypertension 3. Ischemic cardiomyopathy status post AICD 4. Chronic methamphetamine use 5. Hypertension -tele monitoring, resume home medications, discharge plan once cleared by Cardiology. Plan discussed with: Patient, Daughter Date of Service: September 28, 2024 Billing Provider: PING SANDERSON MD Common Visit Codes: NOT BILLABLE PING SANDERSON MD September 29, 2024 12:12
--- NOTE | 2024-09-29 12:29 | DVHDS2 ---
Discharge Summary Date of Admission September 28, 2024 at 19:51 Date of Discharge: September 29, 2024 Brief Hx & Hospital Course: 64-year-old female with a known history of coronary artery disease status post PCI, ischemic cardiomyopathy status post AICD, hypertension, chronic methamphetamine use who initially presented to the hospital for elective procedure left and right heart catheterization. Patient is status post left heart catheterization as well as right heart catheterization shows 100% occluded RCA with a severe left main disease and moderate pulmonary hypertension. Patient has a ischemic cardiomyopathy with the EF of 30% status post AICD placement. Patient does have known history of chronic methamphetamine use, currently quit one week ago as per daughter at bedside. Patient is being discharged under stable condition. Condition at Discharge: Stable Final Diagnosis/Problems List 64-year-old female with a known history of coronary artery disease status post PCI, ischemic cardiomyopathy status post AICD, hypertension, chronic methamphetamine use who initially presented to the hospital for elective procedure left and right heart catheterization. 1. Coronary artery disease status post PCI, status post left carotid right heart catheterization shows under personal RCA occlusion /severe left main disease 2. Moderate pulmonary hypertension 3. Ischemic cardiomyopathy status post AICD 4. Chronic methamphetamine use 5. Hypertension Discharge Disposition: Home SNF Discharge Will this Physician continue t: No Discharge Instruct/Medications Diet: Cardiac 2g Na,low cholest Activity: No Restrictions, As Tolerated Follow Up/Referral: Follow up with the PCP and Dr. Gibbs in 1-2 weeks Medications: Resume home medications Discharge Statement: "Patient was advised to return to the ER or call 911 if any headaches, dizziness, shortness of breath, chest pain, abdominal pain, bleeding, fevers, or worsening of medical condition. Patient was counseled about treatment plan, medications, possible side effects, patient�verbalized understanding. All questions were answered to the best of my ability. This discharge took greater then 30 minutes in planning, reviewing documentation, counseling the patient, and discussing with other team members." ASSESSMENT ASSESSMENT Assessment 64-year-old female with a known history of coronary artery disease status post PCI, ischemic cardiomyopathy status post AICD, hypertension, chronic met hamphetamine use who initially presented to the hospital for elective procedure left and right heart catheterization. 1. Coronary artery disease status post PCI, status post left carotid right heart catheterization shows under personal RCA occlusion /severe left main disease 2. Moderate pulmonary hypertension 3. Ischemic cardiomyopathy status post AICD 4. Chronic methamphetamine use 5. Hypertension Date of Service: September 29, 2024 Billing Provider: PING SANDERSON MD Common Visit Codes: NOT BILLABLE PING SANDERSON MD September 29, 2024 12:29
[2024-09-29 12:39] VITALS: BP 106/56; PULSE 75; RESP 17; TEMP 97.9; O2SAT 94
== END 2024-09-29 15:17 | disposition home or self-care (01) | DRG 287 ==
LOC: CATH 11:57 → OVERFLOW 19:51 → TELE-CENTR 21:58
PROVIDERS: ADMIT Internal Medicine; ATTEND Internal Medicine
PROC: 4A023N8 Measurement of Cardiac Sampling and Pressure, Bilateral, Percutaneous Approach (ICD-10-PCS; principal; 2024-09-28)
PROC: B211YZZ Fluoroscopy of Multiple Coronary Arteries using Other Contrast (ICD-10-PCS; 2024-09-28)
PROC: B215YZZ Fluoroscopy of Left Heart using Other Contrast (ICD-10-PCS; 2024-09-28)
DX: I25.10 Atherosclerotic heart disease of native coronary artery without angina pectoris (principal); I25.5 Ischemic cardiomyopathy; I27.20 Pulmonary hypertension, unspecified; F15.90 Other stimulant use, unspecified, uncomplicated; I50.9 Heart failure, unspecified; I11.0 Hypertensive heart disease with heart failure; Z95.5 Presence of coronary angioplasty implant and graft; Z95.810 Presence of automatic (implantable) cardiac defibrillator; Z79.899 Other long term (current) drug therapy
CPT/HCPCS: 93460; 99152; G0378; J2250; Q9967

== ENCOUNTER 2024-12-30 18:02 | Emergency (ER) | payer OTHER, MEDICAID ==
[~2024-12-30] VITALS: Ht 157.5 cm; Wt 54.0 kg
--- NOTE | 2024-12-30 18:19 | ED.PDOC ---
GI ASSESSMENT HPI Comments 64-year-old female presents with a chief complaint of abdominal pain x 2 weeks. Patient states that her pain is localized diffusely, nonradiating, nonexertional, and believes that she has a "stomach bug". Patient mentions that she attempted to go see her PMD, but could not get an appointment. Patient mentions that she was evaluated for her gallbladder in the past, but was told that she is not a candidate for surgery. Viral studies patient has a multitude of comorbidities including chronic kidney disease, cardiac issues, intermittent pancreatitis events and intermittent gallbladder concerns. Additionally, patient has a history of methamphetamine use. Patient was mildly hypotensive at arrival. Patient appears to be in poor overall health. Chief Complaint: Abdominal Pain Time Seen by MD: 18:11 Primary Care Provider: Adrian REYES Reviewed Notes: Nurses Notes, Medications, Allergies Allergies: Coded Allergies: NO KNOWN ALLERGIES (Unverified , 09/23/24) Home Meds Reported Medications Sacubitril-Valsartan (Entresto 24-26 mg) 1 Tab Tab, 1 TAB PO DAILY for HF, TAB 09/23/24 Potassium Chloride (Klor-Con 8) 8 Meq Tab, 8 MEQ PO DAILY for SUPPLEMENT, TAB 09/23/24 Sildenafil Citrate (SILDENAFIL CITRATE) 20 Mg Tab, 20 MG PO DAILY@0900 for PULMONARY HTN, TAB 04/29/24 Spironolactone (Spironolactone) 25 Mg Tab, 1 TAB PO DAILY for EDEMA/HTN 09/10/23 Clopidogrel Bisulfate (Plavix) 75 Mg Tab, 1 TAB PO DAILY for A.FIB 09/10/23 Aspirin (Aspirin Low Dose) 81 Mg Chw, 1 TAB PO DAILY for PREVENT BLOOD CLOTS 09/10/23 Furosemide (Furosemide) 40 Mg Tab, 1 TAB PO DAILY for EDEMA 09/10/23 Amiodarone Hcl (Amiodarone Hcl) 200 Mg Tab, 1 TAB PO DAILY for A.FIB 09/10/23 Information Source: Patient Mode of Arrival: Wheelchair Timing: Days Duration: Since onset Prehospital treatment: None Quality: Cramping Vomitus: None Stool: Normal Severity: Moderate Recent: None Recent Hx of: None Pain Location: Diffuse, Epigastric Associated sign and symptoms: Nausea Past Medical History PAST MEDICAL HISTORY: CAD, CHF, COPD, CVA, High Lipids, HTN, AR Surgical History: Pacemaker, PTCA, Tonsillectomy, Tubal Ligation SPRING INSPECTOR History: No Pertinent SPRING INSPECTOR History Family History Family History: Reviewed,noncontributory to illness, No family hx of Cancer, No family hx of Heart [place], No family hx of HTN Social History Smoker: Less Than 1 Pack/Day Alcohol: Occasionally Drugs: Marijuana, Methamphetamine Lives In: Home Constitutional: reports: fatigue, weakness; denies: chills, diaphoresis, fever, malaise, sweats, others EENTM: denies: blurred vision, double vision, ear bleeding, ear discharge, ear drainage, ear pain, ear ringing, eye pain, eye redness, hearing loss, mouth pain, mouth swelling, nasal discharge, nose bleeding, nose congestion, nose pain, photophobia, tearing, throat pain, throat swelling, voice changes, others Respiratory: denies: cough, hemoptysis, orthopnea, SOB at rest, shortness of breath, SOB with excertion, stridor, wheezing, others Cardiovascular: denies: chest pain, dizzy spells, diaphoresis, Dyspnea on exertion, edema, irregular heart beat, left arm pain, lightheadedness, palpitations, PND, syncope, others Gastrointestinal: reports: abdominal pain; denies: abdomen distended, blood streaked bowels, constipated, diarrhea, dysphagia, difficulty swallowing, hematemesis, melena, nausea, poor appetite, poor fluid intake, rectal bleeding, rectal pain, vomiting, others Genitourinary: denies: abnormal vagina bleeding, burning, dyspareunia, dysuria, flank pain, frequency, hematuria, incontinence, pain, , vagina discharge, urgency, others Neurological: denies: dizziness, fainting, headache, left sided numbness, left sided weakness, numbness, paresthesia, pre-existing deficit, right sided numbness, right sided weakness, seizure, speech problems, tingling, tremors, weakness, others Musculoskeletal: denies: back pain, gout, joint pain, joint swelling, muscle pain, muscle stiffness, neck pain, others Integumetry: denies: bruises, change in color, change in hair/nails, dryness, laceration, lesions, lumps, rash, wounds, others Allergic/Immunocompromised: denies: Difficulty Healing, Frequent Infections, Hives, Itching, others Hematologic/Lymphatic: denies: anemia, blood clots, easy bleeding, easy bruising, swollen glands, others Endocrine: denies: excessive hunger, excessive sweating, excessive thirst, excessive urination, flushing, intolerance to cold, intolerance to heat, unexplained weight gain, unexplained weight loss, others Psychiatric: denies: anxiety, bipolar disorder, depression, hopeless, panic disorder, schizophrenia, sleepless, suicidal, others All Other Systems: Reviewed and Negative Physical Exam General Appearance: Moderate Distress (Moderate distress due to abdominal pain concerns. Patient appears much older than her chronology. Patient is in poor overall health.), Normal HEENT: Normal ENT Inspection, Pharynx Normal, TMs Normal Neck: Full Range of Motion, Non-Tender, Normal, Normal Inspection Respiratory: Chest Non-Tender, Lungs Clear, No Accessory Muscle Use, No Respiratory Distress, Normal Breath Sounds Cardiovascular: No Edema, No JVD, No Murmur, No Gallop, Normal Peripheral Pulses, Regular Rate/Rhythm Breast Exam: Deferred Gastrointestinal: Other (Diffuse epigastric tenderness to palpation bilaterally. No signs of trauma. No pulsatile masses.) Genitalia: Deferred Pelvic: Deferred Rectal: Deferred Extremities: No calf tenderness, Normal capillary refill, Normal inspection, Normal range of motion, Non-tender, No pedal edema Musculoskeletal : Apperance: Normal Neurologic: Alert, No Motor Deficits, No Sensory Deficits Cerebellar Function: NOT DONE Reflexes: NOT DONE Skin: Dry, Normal Color, Warm Lymphatic: No Adenopathy Was a procedure done? Was a procedure done?: No GI differential Dx Differential Diagnosis: Other (Gastroenteritis, pancreatitis, sepsis, electrolyte abnormality) X-Ray, Labs, Meds, VS Vital Signs Date Time Temp Pulse Resp B/P (MAP) Pulse Ox O2 Delivery O2 Flow Rate FiO2 12/30/24 20:14 60 18 94/73 (80) 98 12/30/24 19:36 90/66 12/30/24 19:19 100 19 99 Room Air 12/30/24 19:19 97.8 100 19 94/71 (79) 99 97.8 90/66 (74) 12/30/24 18:03 97.2 110 18 102/68 98 97.2 Lab Test 12/30/24 21:15 12/30/24 18:44 Range/Units Troponin I High Sensitivity 24 23 </=34 ng/L White Blood Count 7.2 4.4-10.8 10^3/uL Red Blood Count 5.10 4.0-5.20 10^6/uL Hemoglobin 13.9 12.2-16.2 g/dL Hematocrit 42.9 36.0-46.0 % Mean Corpuscular Volume 84.1 80.0-100.0 fL Mean Corpuscular Hemoglobin 27.1 L 28.0-32.0 pg Mean Corpuscular Hemoglobin Concent 32.3 32.0-36.0 g/dL Red Cell Distribution Width 16.7 H 11.8-14.3 % Platelet Count 448 140-450 10^3/uL Mean Platelet Volume 7.3 6.9-10.8 fL Neutrophils (%) (Auto) 83.7 H 37.0-80.0 % Lymphocytes (%) (Auto) 8.2 L 10.0-50.0 % Monocytes (%) (Auto) 7.4 0.0-12.0 % Eosinophils (%) (Auto) 0.3 0.0-7.0 % Basophils (%) (Auto) 0.4 0.0-2.0 % Neutrophils # (Auto) 6.0 1.6-8.6 10 ^3/uL Lymphocytes # (Auto) 0.6 0.4-5.4 10 ^3/uL Monocytes # (Auto) 0.5 0-1.3 10 ^3/uL Eosinophils # (Auto) 0 0-0.8 10 ^3/uL Basophils # (Auto) 0 0-0.2 10 ^3/uL Nucleated Red Blood Cells 0.0 % Sodium Level 137 136-145 mmol/L Potassium Level 4.1 3.5-5.1 mmol/L Chloride Level 100 98-107 mmol/L Carbon Dioxide Level 25 20-31 mmol/L Anion Gap 12 5-15 Blood Urea Nitrogen 36 H 9-23 mg/dL Creatinine 1.61 H 0.550-1.02 mg/dL Glomerular Filtration Rate Calc 35 >90 mL/min BUN/Creatinine Ratio 22.4 H 10.0-20.0 Serum Glucose 110 H 74-106 mg/dL Lactic Acid Level 2.0 0.4-2.0 mmol/L Calcium Level 9.0 8.7-10.4 mg/dL Total Bilirubin 0.9 0.2-1.0 mg/dL Aspartate Amino Transferase (AST) 32 13-40 U/L Alanine Aminotransferase (ALT) 56 H 7-40 U/L Alkaline Phosphatase 89 46-116 U/L Total Protein 6.5 5.7-8.2 g/dL Albumin 3.9 3.2-4.8 g/dL Lipase 25 12-53 U/L Current Medications Medications (Trade) Dose Ordered Sig/Jose Luis Route Start Time Stop Time Status Last Admin Fentanyl Citrate 25 mcg ONCE ONCE IV 12/30/24 19:30 12/30/24 19:31 DC 12/30/24 19:36 Ondansetron HCl (Zofran) 4 mg ONCE ONCE IV 12/30/24 19:30 12/30/24 19:31 DC 12/30/24 19:34 X-Ray, Labs, Meds, VS Comment All studies performed the ED were evaluated by me personally. Serum studies were unremarkable for any systemic concerns. I discussed the case extensively with the patient's daughter. Advised that the patient's needs to cease utilizing methamphetamine 1st and foremost, what additional comorbidities need to be followed up with primary care provider and specialists. Patient has seen a dietitian assistant recently for GI complaints. Advised returning to that provider for continued evaluation and long-term management. Time of 1ST Reevaluation: 22:30 Reevaluation 1ST: Improved Consultation: PCP, GI Patient Education/Counseling: Diagnosis, Treatment, Need For Follow Up Family Education/Counseling: Diagnosis, Treatment, Need For Follow Up SEPSIS Sepsis Screen Date sepsis recognized/suspect: Dec 30, 2024 Time Sepsis recognized/suspect: 1803 Recent Procedure: No On Antibiotic Therapy: No Respiratory Rate >20: No Heart Rate >90: Yes Temp<36 C (96.8 F) or >38.3 C: No SBP <90 or MAP <65 mmHG: No New Acute Mental Status Change: No Is the patient on CPAP, BIPAP,: No Physician Orders Urinalysis (12/30/24 18:24) Heplock Iv (12/30/24 18:24) Vital Signs Date Time Temp Pulse Resp B/P (MAP) Pulse Ox O2 Delivery O2 Flow Rate FiO2 12/30/24 20:14 60 18 94/73 (80) 98 12/30/24 19:36 90/66 12/30/24 19:19 100 19 99 Room Air 12/30/24 19:19 97.8 100 19 94/71 (79) 99 97.8 90/66 (74) 12/30/24 18:03 97.2 110 18 102/68 98 97.2 Laboratory Tests Test 12/30/24 18:44 Lactic Acid Level 2.0 mmol/L (0.4-2.0) White Blood Count 7.2 10^3/uL (4.4-10.8) Medications Medications Dose Ordered Sig/Jose Luis Route Start Time Stop Time Status Last Admin Dose Admin Fentanyl Citrate 25 mcg ONCE ONCE IV 12/30/24 19:30 12/30/24 19:31 DC 12/30/24 19:36 Ondansetron HCl 4 mg ONCE ONCE IV 12/30/24 19:30 12/30/24 19:31 DC 12/30/24 19:34 Departure 1 Departure Time of Disposition: 22:30 Impression: Primary Impression: Abdominal pain Disposition: HOME / SELF CARE / HOMELESS Condition: Stable Additional Instructions: Advise utilizing medication as needed for symptomatic relief, ceasing all methamphetamine use moving forward as well as following up with a drug rehab support groups such as [facility]. Patient needs to follow up with her primary care provider and specialist for long-term management. e-Prescriptions Acetaminophen (Acetaminophen) 500 Mg Tab 500 MG PO Q4HP PRN, #30 TAB Prov: AZIZA KOCH PAC 12/30/24 Dicyclomine Hcl (BENTYL CAPSULE) 10 Mg Cp 1 CAP PO Q6HP PRN, #20 CAP 0 Refills Prov: AZIZA KOCH PAC 12/30/24 Discharged With: Self, Relative Critical Care Note Critical Care Time?: No Stability Stability form required: No Heart Score Heart Score: Heart Score Response (Comments) Value History N/A 0 EKG N/A 0 Age N/A 0 Risk Factors N/A 0 Troponin N/A 0 Total 0 I personally scribed for AZIZA KOCH PAC ([email or web address]) on 12/30/24 at 18:19. Electronically submitted by Dariel Fox ([email or web address]). AZIZA KOCH PAC Dec 30, 2024 18:19
[2024-12-30] MEDS ORDERED: HYDROmorphone HCL 2 MG/ML VL/or syr IV ONE (18:30)
[2024-12-30] MEDS ORDERED: ONDANSETRON ODT 4 MG TAB PO ONE (18:30)
[2024-12-30 19:10] LABS: Hematocrit 42.9 % (36.0-46.0); Hemoglobin 13.9 g/dL (12.2-16.2); Mean Corpuscular Hemoglobin 27.1 pg (28.0-32.0); Mean Corpuscular Volume 84.1 fL (80.0-100.0); Nucleated Red Blood Cells % 0.0 %
[2024-12-30 19:19] VITALS: TEMP 97.8
[2024-12-30 19:23] LABS: Albumin 3.9 g/dL (3.2-4.8); Alkaline Phosphatase 89 U/L (46-116); Anion Gap 12 (5-15); BUN/Creatinine Ratio 22.4 (10.0-20.0); Bilirubin, Total 0.9 mg/dL (0.2-1.0); Calcium 9.0 mg/dL (8.7-10.4); Carbon Dioxide 25 mmol/L (20-31); Chloride 100 mmol/L (98-107); Lipase 25 U/L (12-53); Potassium 4.1 mmol/L (3.5-5.1); Sodium 137 mmol/L (136-145); Total Protein 6.5 g/dL (5.7-8.2)
[2024-12-30 19:30] LABS: Alanine Aminotransferase 56 U/L (7-40); Blood Urea Nitrogen 36 mg/dL (9-23); Glucose 110 mg/dL (74-106)
[2024-12-30] MEDS: ONDANSETRON HCL 4 MG/2 ML VIAL IV ONE (19:34)
[2024-12-30] MEDS: fentaNYL CITRATE 100 MCG/2 ML VL IV ONE (19:36)
[2024-12-30 20:14] VITALS: BP 94/73; PULSE 60; RESP 18; O2SAT 98
[2024-12-30] MEDS ORDERED: ACET500T58 PO (22:32)
[2024-12-30] MEDS ORDERED: DICY10CA PO (22:32)
== END 2024-12-30 23:32 | disposition home or self-care (01) ==
LOC: ER 18:06
DX: R10.13 Epigastric pain (principal); F10.90 Alcohol use, unspecified, uncomplicated; F17.210 Nicotine dependence, cigarettes, uncomplicated; F12.90 Cannabis use, unspecified, uncomplicated; F19.90 Other psychoactive substance use, unspecified, uncomplicated; I11.0 Hypertensive heart disease with heart failure; I50.9 Heart failure, unspecified; J44.9 Chronic obstructive pulmonary disease, unspecified; E78.5 Hyperlipidemia, unspecified; I21.9 Acute myocardial infarction, unspecified; I25.10 Atherosclerotic heart disease of native coronary artery without angina pectoris; Z79.82 Long term (current) use of aspirin; Z79.899 Other long term (current) drug therapy; Z86.73 Personal history of transient ischemic attack (TIA), and cerebral infarction without residual deficits; Z90.89 Acquired absence of other organs; Z95.0 Presence of cardiac pacemaker; Z98.51 Tubal ligation status; Y90.9 Presence of alcohol in blood, level not specified
CPT/HCPCS: 36415; 80053; 83605; 83690; 84484; 85025; 96374; 96375; 99284; J2405; J3010

== ENCOUNTER 2025-02-25 17:23 | Inpatient (IN) | payer OTHER, MEDICAID ==
[~2025-02-25] VITALS: Ht 149.9 cm; Wt 73.1 kg
[~2025-02-25 17:23] MED LIST changes: +ACET500T58 PO; +DICY10CA PO
--- NOTE | 2025-02-25 17:44 | ECG ---
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
--- NOTE | 2025-02-25 19:06 | ED.PDOC ---
History of Present Illness HPI Comments 64 y/o F presents with c/c of nonradiating, epigastric abdominal pain and nausea. Endorsement of 2x day history following initial, unprovoked and atraumatic onset. No reported modifiers. No recent sick contact, injuries, spoiled food consumption, or pertinent events or history endorsed. Significant medical history of CAD, CHF, COPD, CVA, HLD, HTN, UT, PTCA, Pacemaker, and polysubstance abuse. Denial of any vomiting, diarrhea, urinary symptoms constipation, fever, chills, or further associated symptoms. Chief Complaint: Abdominal Pain Time Seen by MD: 18:20 Primary Care Provider: Adrian REYES Reviewed Notes: Nurses Notes, Medications, Allergies Allergies: Coded Allergies: NO KNOWN ALLERGIES (Unverified , 09/23/24) Home Meds Active Scripts Acetaminophen (Acetaminophen) 500 Mg Tab, 500 MG PO Q4HP PRN, #30 TAB Prov:AZIZA KOCH PAC 12/30/24 Dicyclomine Hcl (BENTYL CAPSULE) 10 Mg Cp, 1 CAP PO Q6HP PRN, #20 CAP 0 Refills Prov:AZIZA KOCH PAC 12/30/24 Reported Medications Sacubitril-Valsartan (Entresto 24-26 mg) 1 Tab Tab, 1 TAB PO DAILY for HF, TAB 09/23/24 Potassium Chloride (Klor-Con 8) 8 Meq Tab, 8 MEQ PO DAILY for SUPPLEMENT, TAB 09/23/24 Sildenafil Citrate (SILDENAFIL CITRATE) 20 Mg Tab, 20 MG PO DAILY@0900 for PULMONARY HTN, TAB 04/29/24 Spironolactone (Spironolactone) 25 Mg Tab, 1 TAB PO DAILY for EDEMA/HTN 09/10/23 Clopidogrel Bisulfate (Plavix) 75 Mg Tab, 1 TAB PO DAILY for A.FIB 09/10/23 Aspirin (Aspirin Low Dose) 81 Mg Chw, 1 TAB PO DAILY for PREVENT BLOOD CLOTS 09/10/23 Furosemide (Furosemide) 40 Mg Tab, 1 TAB PO DAILY for EDEMA 09/10/23 Amiodarone Hcl (Amiodarone Hcl) 200 Mg Tab, 1 TAB PO DAILY for A.FIB 09/10/23 Information Source: Patient Mode of Arrival: Ambulatory Severity: Moderate Timing: Hours Duration: Since onset Prehospital treatment: None Past Medical History PAST MEDICAL HISTORY: CAD, CHF, COPD, CVA, High Lipids, HTN, UT Surgical History: Pacemaker, PTCA, Tonsillectomy, Tubal Ligation DEAN OF ADMISSIONS History: No Pertinent DEAN OF ADMISSIONS History Family History Family History: Reviewed,noncontributory to illness, No family hx of Cancer, No family hx of Heart [place], No family hx of HTN Social History Smoker: Less Than 1 Pack/Day Alcohol: Occasionally Drugs: Marijuana, Methamphetamine Lives In: Home All Other Systems: Reviewed and Negative (Comprehensive systems review obtained and negative except for what is stated in the HPI.) Physical Exam General Appearance: Moderate Distress HEENT: Normal ENT Inspection, Pharynx Normal, TMs Normal Neck: Full Range of Motion, Non-Tender, Normal, Normal Inspection Respiratory: Chest Non-Tender, Lungs Clear, No Accessory Muscle Use, No Respiratory Distress, Normal Breath Sounds Cardiovascular: No Edema, No JVD, No Murmur, No Gallop, Normal Peripheral Pulses, Regular Rate/Rhythm Breast Exam: Deferred Gastrointestinal: Diffuse Genitalia: Deferred Pelvic: Deferred Rectal: Deferred Extremities: No calf tenderness Musculoskeletal : Apperance: Normal Neurologic: Alert Cerebellar Function: NOT DONE Reflexes: NOT DONE Skin: Wounds (Bilateral arms) Peripheral Pulses: 3+ Radial (R), 3+ Radial (L) Lymphatic: No Adenopathy Was a procedure done? Was a procedure done?: No EKG EKG : Pulse Rate (adult): 113 [place]: Normal Cardiac Rhythm: ST Block: None Hypertrophy: None ST: Normal Differential Dx Considerations may include: gastritis, gastroenteritis, GERD, PUD, viral syndrome, cholelithiasis, cholecystitis, among others X-Ray, Labs, Meds, VS Vital Signs Date Time Temp Pulse Resp B/P (MAP) Pulse Ox O2 Delivery O2 Flow Rate FiO2 02/25/25 20:15 115/80 02/25/25 19:50 93 Nasal Cannula* 2 28 02/25/25 19:46 97.9 121 20 140/92 (108) 88 97.9 02/25/25 19:06 113 02/25/25 17:38 113 02/25/25 17:30 97.6 114 20 137/94 95 97.6 Lab Test 02/25/25 21:07 02/25/25 19:09 Range/Units Lactic Acid Level 2.5 *H 2.1 *H 0.4-2.0 mmol/L White Blood Count 8.7 4.4-10.8 10^3/uL Red Blood Count 5.03 4.0-5.20 10^6/uL Hemoglobin 13.4 12.2-16.2 g/dL Hematocrit 41.0 36.0-46.0 % Mean Corpuscular Volume 81.6 80.0-100.0 fL Mean Corpuscular Hemoglobin 26.7 L 28.0-32.0 pg Mean Corpuscular Hemoglobin Concent 32.8 32.0-36.0 g/dL Red Cell Distribution Width 19.4 H 11.8-14.3 % Platelet Count 398 140-450 10^3/uL Mean Platelet Volume 7.4 6.9-10.8 fL Neutrophils (%) (Auto) 81.2 H 37.0-80.0 % Lymphocytes (%) (Auto) 7.3 L 10.0-50.0 % Monocytes (%) (Auto) 10.3 0.0-12.0 % Eosinophils (%) (Auto) 0.5 0.0-7.0 % Basophils (%) (Auto) 0.7 0.0-2.0 % Neutrophils # (Auto) 7.0 1.6-8.6 10 ^3/uL Lymphocytes # (Auto) 0.6 0.4-5.4 10 ^3/uL Monocytes # (Auto) 0.9 0-1.3 10 ^3/uL Eosinophils # (Auto) 0 0-0.8 10 ^3/uL Basophils # (Auto) 0.1 0-0.2 10 ^3/uL Nucleated Red Blood Cells 0.1 % Sodium Level 138 136-145 mmol/L Potassium Level 3.3 L 3.5-5.1 mmol/L Chloride Level 102 98-107 mmol/L Carbon Dioxide Level 23 20-31 mmol/L Anion Gap 13 5-15 Blood Urea Nitrogen 15 9-23 mg/dL Creatinine 0.98 0.550-1.02 mg/dL Glomerular Filtration Rate Calc 64 >90 mL/min BUN/Creatinine Ratio 15.3 10.0-20.0 Serum Glucose 100 74-106 mg/dL Calcium Level 9.4 8.7-10.4 mg/dL Current Medications Medications (Trade) Dose Ordered Sig/Jose Luis Route Start Time Stop Time Status Last Admin Sodium Chloride 1,000 ml @ 1,000 mls/hr Q1H ONCE IV 02/25/25 19:00 02/25/25 19:59 DC 02/25/25 20:38 Sodium Chloride 1,000 ml @ 150 mls/hr Q6H40M ONCE IV 02/25/25 19:00 02/26/25 01:39 02/25/25 20:15 Ceftriaxone Sodium 50 ml @ 100 mls/hr ONCE ONCE IV 02/25/25 19:00 02/25/25 19:29 DC 02/25/25 20:38 Azithromycin 250 ml @ 125 mls/hr ONCE ONCE IV 02/25/25 19:00 02/25/25 20:59 DC 02/25/25 20:15 Furosemide (Lasix Injection) 40 mg ONCE ONCE IV 02/25/25 20:30 02/25/25 20:31 DC 02/25/25 20:15 [place] [address] Ph: [phone] DIAGNOSTIC IMAGING Diagnostic Imaging Report : [id number] Signed PATIENT: WILLIAMS PARKINSON ACCT: [id number] UNIT: [id number] : 1960 LOC: ER ROOM / BED: / AGE / SEX: 64 / F ADM STATUS: REG ER SERVICE 58 ORDERING PHYSICIAN: NATHALIA SOUZA MD PROCEDURE(s): CXRP - CHEST PORTABLE REASON: sob ORDER NUMBER(s): [id number], ACCESSION NUMBER(s): [id number] CHEST RADIOGRAPH Indication: sob Technique: Single frontal view of the chest was obtained Comparison: XY CHEST PORTABLE on DOS: 04/26/24, XY CHEST XRAY 1 VIEW on DOS: 09/09/23, CHEST XRAY 1 VIEW on DOS: 07/03/21 FINDINGS: Lines and Tubes: None Lungs: No focal consolidation. Diffuse interstitial prominence. Blunting of bilateral costophrenic angles with indistinctness of the left hemidiaphragm. Pleura: No effusion. No pneumothorax. Cardiomediastinal contours: Mild cardiomegaly. Left-sided approach dual lead AICD terminating within right atrium and right ventricle. Bones: No acute osseous abnormality. Retrocardiac density with lucency. IMPRESSION: Mild cardiomegaly with findings suggestive of congestive heart failure. Small bilateral pleural effusions. Moderate to large hiatal hernia. [address] [address] Ph: [phone] DIAGNOSTIC IMAGING Diagnostic Imaging Report : [id number] Signed PATIENT: WILLIAMS PARKINSON ACCT: [id number] UNIT: [id number] : 1960 LOC: ER ROOM / BED: / AGE / SEX: 64 / F ADM STATUS: REG ER SERVICE 37 ORDERING PHYSICIAN: NATHALIA SOUZA MD PROCEDURE(s): ABPL - CT AB PEL WO CON-NO ORAL OR IV REASON: colitis ORDER NUMBER(s): [id number], ACCESSION NUMBER(s): [id number] Exam: CT CT AB PEL WO CON-NO ORAL OR IV History: colitis Comparison Study: CT CT AB PEL WO CON-NO ORAL OR IV on DOS: 06/27/24, CT CT AB PEL WO CON-NO ORAL OR IV on DOS: 04/26/24 TECHNIQUE: Multidetector CT of the abdomen and pelvis without IV contrast. Axial, coronal and sagittal multiplanar reformats were obtained from the axial data set by the technologist. Radiation Dose Information: CT Dose: CTDI volume is 5.07 mGy. Dose-length product is 3.92 mGy*cm FINDINGS: Small bilateral pleural effusions with bibasilar ground-glass opacities right middle lobe patchy consolidation. Emphysematous changes of the lung bases. There is anterior diaphragmatic hernia containing bowel loops which extends anterior to the heart. Mild cardiomegaly. Liver, spleen, and adrenal glands unremarkable. Trace ascites limits evaluation of the pancreas acute pancreatitis. The gallbladder is packed with gallstones with mild wall thickening and LIMITED EVALUATION for pericholecystic edema given Trace ascites. No [place] nephrosis or renal calculi bilaterally. Trace ascites limits evaluation for perinephric fat stranding. Urinary bladder is unremarkable. Mild wall thickening of the uterus. Otherwise, uterus and adnexa are unremarkable. Large hiatal hernia containing part of the stomach. Qerq-ik-gwzpegbh distention of the stomach. Mild wall Thickening of proximal small bowel loops. The remainder of the small bowel loops unremarkable. Appendix is unremarkable. Descending colon and Sigmoid diverticulosis without diverticulitis. Small to moderate amount of fecal material within the colon. No evidence of intraperitoneal free air. Trace ascites. No evidence of aortic aneurysm. Moderate to Heavy atherosclerotic calcification of the aorta and bilateral iliacs. No significant lymphadenopathy. Icsd-ec-kffblqwb body wall edema. No evidence of acute osseous abnormalities. Multilevel severe degenerative changes of the lower thoracic and lumbar spine. Sclerotic focus over the bilateral proximal femur and right pelvic bone which m ay represent bone islands. IMPRESSION: Limited noncontrast imaging. Trace ascites. Fguv-hf-qukerlpb body wall edema. Trace ascites limits evaluation of the pancreas and kidneys for adjacent inflammatory reaction /edema. The gallbladder is filled with gallstones with mild gallbladder wall thickening. Right upper quadrant ultrasound is recommended for further evaluation. Mild wall Thickening of proximal Small bowel loops which may be due to inadequate distention with enteritis not excluded. Large hiatal hernia with additional anterior diaphragmatic hernia containing bowel loops extending anterior to the heart with no evidence of obstruction. Small bilateral pleural effusions with associated atelectasis possible bibasilar pneumonia. ATED BY: GRAZYNA LAWSON DO DICTATED DATE/TIME: 02/25/252128 SIGNED BY: GRAZYNA LAWSON DO SIGNED DATE/TIME: 02/25/252128 CC: DICTATED BY: GRAZYNA LAWSON DO DICTATED DATE/TIME: 02/25/251948 SIGNED BY: GRAZYNA LAWSON DO SIGNED DATE/TIME: 02/25/251948 CC: Patient alert. Came in because of abdominal pain. Vitals stable. Answering questions. Uses drugs. Chest x-ray reviewed does show CHF. Was given Lasix pain Reviewed her previous visit. Counseled patient on effects of smoking cigarettes for 15 minutes. Possible sepsis. Sepsis protocol. Establish intravenous access. Was given fluids. Explained to the patient. Continue monitoring Time of 1ST Reevaluation: 18:50 Reevaluation 1ST: Unchanged Patient Education/Counseling: Diagnosis, Treatment Family Education/Counseling: No Family Present SEPSIS Sepsis Screen Date sepsis recognized/suspect: Feb 25, 2025 Time Sepsis recognized/suspect: 1733 Recent Procedure: No On Antibiotic Therapy: No Respiratory Rate >20: No Heart Rate >90: Yes Temp<36 C (96.8 F) or >38.3 C: No SBP <90 or MAP <65 mmHG: No New Acute Mental Status Change: No Is the patient on CPAP, BIPAP,: No Physician Orders Chest Portable (02/25/25 18:59) Urinalysis (02/25/25 18:59) Sodium Chloride 0.9% (02/25/25 19:00) Blood Culture (02/25/25 18:59) Drug Screen (02/25/25 18:59) Ct Ab Pel Wo Con-No Oral Or Iv (02/25/25 20:38) Vital Signs Date Time Temp Pulse Resp B/P (MAP) Pulse Ox O2 Delivery O2 Flow Rate FiO2 02/25/25 20:15 115/80 02/25/25 19:50 93 Nasal Cannula* 2 28 02/25/25 19:46 97.9 121 20 140/92 (108) 88 97.9 02/25/25 19:06 113 02/25/25 17:38 113 02/25/25 17:30 97.6 114 20 137/94 95 97.6 Laboratory Tests Test 02/25/25 19:09 02/25/25 21:07 Lactic Acid Level 2.1 mmol/L (0.4-2.0) *H 2.5 mmol/L (0.4-2.0) *H White Blood Count 8.7 10^3/uL (4.4-10.8) Medications Medications Dose Ordered Sig/Jose Luis Route Start Time Stop Time Status Last Admin Dose Admin Azithromycin 250 ml @ 125 mls/hr ONCE ONCE IV 02/25/25 19:00 02/25/25 20:59 DC 02/25/25 20:15 Ceftriaxone Sodium 50 ml @ 100 mls/hr ONCE ONCE IV 02/25/25 19:00 02/25/25 19:29 DC 02/25/25 20:38 Furosemide 40 mg ONCE ONCE IV 02/25/25 20:30 02/25/25 20:31 DC 02/25/25 20:15 Sodium Chloride 1,000 ml @ 150 mls/hr Q6H40M ONCE IV 02/25/25 19:00 02/26/25 01:39 02/25/25 20:15 Sodium Chloride 1,000 ml @ 1,000 mls/hr Q1H ONCE IV 02/25/25 19:00 02/25/25 19:59 DC 02/25/25 20:38 Departure 1 Departure Time of Disposition: 20:28 Impression: Primary Impression: CHF (congestive heart failure) Qualified Codes: I50.43 - Acute on chronic combined systolic (congestive) and diastolic (congestive) heart failure Disposition: ADMITTED INPATIENT Admit to: Med Surg Condition: Guarded Critical Care Note Critical Care Time?: Yes (90 min-critical care time only) Stability Stability form required: No Heart Score Heart Score: Heart Score Response (Comments) Value History N/A 0 EKG N/A 0 Age N/A 0 Risk Factors N/A 0 Troponin N/A 0 Total 0 I personally scribed for NATHALIA SOUZA MD ([email or web address]) on 02/25/25 at 19:06. Electronically submitted by Lester Jones ([email or web address]). I personally scribed for NATHALIA SOUZA MD ([email or web address]) on 02/25/25 at 19:54. Electronically submitted by Lester Jones ([email or web address]). I personally scribed for NATHALIA SOUZA MD ([email or web address]) on 02/25/25 at 22:55. Electronically submitted by Lester Jones ([email or web address]). NATHALIA SOUZA MD Feb 25, 2025 19:06
[2025-02-25 19:20] LABS: Hematocrit 41.0 % (36.0-46.0); Hemoglobin 13.4 g/dL (12.2-16.2); Mean Corpuscular Hemoglobin 26.7 pg (28.0-32.0); Mean Corpuscular Volume 81.6 fL (80.0-100.0); Nucleated Red Blood Cells % 0.1 %
[2025-02-25 19:40] LABS: Lactic Acid w/Reflex 2.1 mmol/L (0.4-2.0)
[2025-02-25 19:46] LABS: Chloride 102 mmol/L (98-107); Sodium 138 mmol/L (136-145)
[2025-02-25 19:47] LABS: Anion Gap 13 (5-15); Calcium 9.4 mg/dL (8.7-10.4); Carbon Dioxide 23 mmol/L (20-31)
[2025-02-25 19:48] LABS: Potassium 3.3 mmol/L (3.5-5.1)
--- NOTE | 2025-02-25 19:51 | DVH ---
CHEST RADIOGRAPH Indication: sob Technique: Single frontal view of the chest was obtained Comparison: XY CHEST PORTABLE on DOS: 04/26/24, XY CHEST XRAY 1 VIEW on DOS: 09/09/23, CHEST XRAY 1 VIE W on DOS: 07/03/21 FINDINGS: Lines and Tubes: None Lungs: No focal consolidation. Diffuse interstitial prominence. Blunting of bilateral costophrenic an gles with indistinctness of the left hemidiaphragm. Pleura: No effusion. No pneumothorax. Cardiomediastinal contours: Mild cardiomegaly. Left-sided approach dual lead AICD terminating within right atrium and right ventricle. Bones: No acute osseous abnormality. Retrocardiac density with lucency. IMPRESSION: Mild cardiomegaly with findings suggestive of congestive heart failure. Small bilateral pleural effu sions. Moderate to large hiatal hernia.
[2025-02-25 19:52] LABS: BUN/Creatinine Ratio 15.3 (10.0-20.0); Blood Urea Nitrogen 15 mg/dL (9-23); Glucose 100 mg/dL (74-106)
[2025-02-25] MEDS: SODIUM CHLORIDE 0.9% 1,000 ML IV ONE ×2 (19:57)
[2025-02-25] MEDS: AZITHROMYCIN 500MG/ 250ML 250 ML IV ONE (19:57)
[2025-02-25] MEDS: FUROSEMIDE 40 MG/4 ML VIAL IV ONE (20:15)
--- NOTE | 2025-02-25 21:32 | DVH ---
Exam: CT CT AB PEL WO CON-NO ORAL OR IV History: colitis Comparison Study: CT CT AB PEL WO CON-NO ORAL OR IV on DOS: 06/27/24, CT CT AB PEL WO CON-NO ORAL OR IV on DOS: 04/26/24 TECHNIQUE: Multidetector CT of the abdomen and pelvis without IV contrast. Axial, coronal and sagitta l multiplanar reformats were obtained from the axial data set by the technologist. Radiation Dose Information: CT Dose: CTDI volume is 5.07 mGy. Dose-length product is 3.92 mGy*cm FINDINGS: Small bilateral pleural effusions with bibasilar ground-glass opacities right middle lobe patchy cons olidation. Emphysematous changes of the lung bases. There is anterior diaphragmatic hernia containing bowel loops which extends anterior to the heart. Mild cardiomegaly. Liver, spleen, and adrenal glands unremarkable. Trace ascites limits evaluation of the pancreas acute pancreatitis. The gallbladder is packed with gallstones with mild wall thickening and LIMITED EVALU ATION for pericholecystic edema given Trace ascites. No [place] nephrosis or renal calculi bilaterally. Trace ascites limits evaluation for perinephric fat stranding. Urinary bladder is unremarkable. Mild wall thickening of the uterus. Otherwise, uterus an d adnexa are unremarkable. Large hiatal hernia containing part of the stomach. Sxuj-tw-wkvzezpy distention of the stomach. Mild wall Thickening of proximal small bowel loops. The remainder of the small bowel loops unremarkable. Appendix is unremarkable. Descending colon and Sigmoid diverticulosis without diverticulitis. Small to moderate amount of fecal material within the colon. No evidence of intraperitoneal free air. Trace ascites. No evidence of aortic aneurysm. Moderate to Heavy atherosclerotic calcification of the aorta and charles ateral iliacs. No significant lymphadenopathy. Kpti-zz-dtieylrd body wall edema. No evidence of acute osseous abnormalities. Multilevel severe dege nerative changes of the lower thoracic and lumbar spine. Sclerotic focus over the bilateral proximal femur and right pelvic bone which may represent bone islands. IMPRESSION: Limited noncontrast imaging. Trace ascites. Zagk-oh-mittnksy body wall edema. Trace ascites limits evaluation of the pancreas and kidneys for adjacent inflammatory reaction /edema . The gallbladder is filled with gallstones with mild gallbladder wall thickening. Right upper quadran t ultrasound is recommended for further evaluation. Mild wall Thickening of proximal Small bowel loops which may be due to inadequate distention with ent eritis not excluded. Large hiatal hernia with additional anterior diaphragmatic hernia containing bowel loops extending an terior to the heart with no evidence of obstruction. Small bilateral pleural effusions with associated atelectasis possible bibasilar pneumonia.
[2025-02-25] MEDS: POTASSIUM CHL 20MEQ/100ML 100 ML IV ONE (23:15)
[2025-02-25 23:42] LABS: Alkaline Phosphatase 92 U/L (46-116); Total Protein 7.3 g/dL (5.7-8.2)
[2025-02-25 23:44] LABS: Alanine Aminotransferase 23 U/L (7-40); Albumin 4.0 g/dL (3.2-4.8); Bilirubin, Total 0.8 mg/dL (0.2-1.0)
[2025-02-25 23:45] VITALS: PULSE 107; RESP 24; O2SAT 98
[2025-02-25] MEDS: IPRATROPIUM BROM 0.5 MG/2.5ML INH SOL NEB SCH (23:45)
[2025-02-25 23:51] VITALS: PULSE 100; RESP 22; O2SAT 99
[2025-02-26] VITALS (10 sets, daily range): BP systolic 106–140; BP diastolic 76–92; PULSE 74–112; RESP 14–24; TEMP 97.7–98.1; O2SAT 92–100
[2025-02-26 00:20] LABS: Cannabinoid Screen, Urine Neg (NEGATIVE)
[2025-02-26 00:22] LABS: Barbiturate Scree,Urine Neg (NEGATIVE); Opiate Scree,Urine Neg (NEGATIVE)
[2025-02-26 00:23] LABS: Amphetamine Screen, Urine Pos (NEGATIVE); Benzodiazephine Screen, Urine Neg (NEGATIVE); Cocaine Screen, Urine Neg (NEGATIVE); Phencyclidine Screen, Urine Neg (NEGATIVE)
--- NOTE | 2025-02-26 00:51 | DVH ---
INDICATION: abdominal pain TECHNIQUE: Multiple real-time sonographic images were obtained of the right upper quadrant. COMPARISON: None FINDINGS: Hepatic echogenicity is coarsened heterogeneous with mild surface nodularity. The liver measures 14.4 cm. The common duct measures 4.6 mm. Stone filled, nondistended gallbladder. Wall thickness measures 4.2 mm. The right kidney measures 10.3 cm. No visualized hydronephrosis, stone, or lesion. The pancreas is not well visualized due to overlying bowel gas. No visualized ascites. IMPRESSION: 1. Cholelithiasis and gallbladder wall thickening, in the absence of distention and sonographic Robyn y's sign, unlikely to represent acute calculus cholecystitis. Consider nuclear medicine hepatobiliar y scan if there is persistent clinical uncertainty. 2. Cirrhotic hepatic characteristics.
[2025-02-26 00:59] LABS: Urine Protein, UAD Negative (Negative)
--- NOTE | 2025-02-26 01:17 | DVHHP2 ---
Admitting Diagnosis: Abdominal pain, cholelithiasis, lactic acidosis, Pneumonia History of Present Illness History Source: Patient Exam Limitations: No limitations HPI Mrs. Ember Rordíguez is a 64 yo female who presents with a chief complaint of nonradiating, epigastric abdominal pain and nausea. Endorsement of 2x day history following initial, unprovoked and atraumatic onset. No reported modifiers. No recent sick contact, injuries, spoiled food consumption, or pertinent events or history endorsed. Significant medical history of CAD, CHF, C OPD, CVA, HLD, HTN, [place], PTCA, Pacemaker, and polysubstance abuse. Denial of any vomiting, diarrhea, urinary symptoms constipation, fever, chills, or further associated symptoms. Patient admitted for further evaluation. Home Meds Active Scripts Acetaminophen (Acetaminophen) 500 Mg Tab, 500 MG PO Q4HP PRN, #30 TAB Prov:AZIZA KOCH PAC 12/30/24 Dicyclomine Hcl (BENTYL CAPSULE) 10 Mg Cp, 1 CAP PO Q6HP PRN, #20 CAP 0 Refills Prov:AZIZA KOCH PAC 12/30/24 Reported Medications Levothyroxine Sodium (Levothyroxine Sodium) 50 Mcg Tab, 50 MCG PO QAM for 30 Days, MCG 02/26/25 Sacubitril-Valsartan (Entresto 24-26 mg) 1 Tab Tab, 1 TAB PO DAILY for HF, TAB 09/23/24 Potassium Chloride (Klor-Con 8) 8 Meq Tab, 8 MEQ PO DAILY for SUPPLEMENT, TAB 09/23/24 Sildenafil Citrate (SILDENAFIL CITRATE) 20 Mg Tab, 20 MG PO DAILY@0900 for PULMONARY HTN, TAB 04/29/24 Spironolactone (Spironolactone) 25 Mg Tab, 1 TAB PO DAILY for EDEMA/HTN 09/10/23 Clopidogrel Bisulfate (Plavix) 75 Mg Tab, 1 TAB PO DAILY for A.FIB 09/10/23 Aspirin (Aspirin Low Dose) 81 Mg Chw, 1 TAB PO DAILY for PREVENT BLOOD CLOTS 09/10/23 Furosemide (Furosemide) 40 Mg Tab, 1 TAB PO DAILY for EDEMA 09/10/23 Amiodarone Hcl (Amiodarone Hcl) 200 Mg Tab, 1 TAB PO DAILY for A.FIB 09/10/23 Past Medical History Cardiac: CAD (s/p PCI), CHF, HTN Pulmonary: COPD Central Nervous System: No pertinent Hx GI: No pertinent Hx Hemotology/Oncology: No pertinent Hx Hepatobiliary: No pertinent Hx Psychiatric: No pertinent Hx Musculoskeletal: No pertinent Hx Rheumotologic: No pertinent Hx Infectious Disease: No peritnent Hx ENT: No pertinent Hx Renal/: No pertinent Hx Endocrine: No pertinent Hx Dermatology: No pertinent Hx Patient Family History: FHx: uterine cancer G8 MOTHER Smoker: <1 pack per day Alocohol: None Drugs: Amphetimines Lives with: Alone Domestic Violence: Neg Review of Systems Constitutional: No symptom reported Ears, Nose, & Throat: No symptom reported Eyes: No symptom reported Pulmonary/Respiratory: No symptom reported Cardiovascular: No symptom reported Gastrointestinal: Abdominal Pain Genitourinary: No symptom reported Musculoskeletal: No symptom reported Skin: No symptom reported Psychiatric: No symptom reported Endocrine: No symptom reported Hemotologic/Lymphatic: No symptom reported H&P Exam Vital Signs Vital Signs Date Time Temp Pulse Resp B/P (MAP) Pulse Ox O2 Delivery O2 Flow Rate FiO2 02/26/25 00:01 97.9 107 24 140/92 99 5.0 40 97.9 02/25/25 23:45 Nasal Cannula General Appeara: Other (ill appearing) Head Exam: Normal inspection Neck Exam: Normal inspection, Non-tender, Normal alignment Eye Exam: bilateral eye Normal inspection, bilateral eye PERRL, bilateral eye EOMI Ear Exam: bilateral ear Auricle normal, bilateral ear Canal normal Nasal Exam: Normal inspection Mouth: Normal Inspection (poor dentition, missing teeth) Pulmonary/Respiratory: Normal inspection, Normal breath sounds, Chest non- tender, Lungs clear Cardiovascular/Chest: Normal inspection, Regular rate, Normal Rhythm Peripheral Pulses: 2+ dorsalis pedis (R), 2+ dorsalis pedis (L), 2+ Radial (R), 2+ Radial (L) Abdominal Exam: Normal bowel sounds, Soft Abdominal Pain Onset Location: Generalized abdomen Rectal Exam: Deferred Back Exam: Normal 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: Normal hearing, Normal speech, PERRL Neuro/Mental St: Alert, Oriented Appearance: Appropriate appearance, Appropriate insight Eye contact/ Speech: Cooperative, Good eye contact, Normal speech Thoughts/Psych: Normal thought pattern Skin Exam: Normal color, Warm/dry, Other (bruising throughout arms) SEPSIS Sepsis Screen Date sepsis recognized/suspect: Feb 25, 2025 Time Sepsis recognized/suspect: 3 Recent Procedure: No On Antibiotic Therapy: No Respiratory Rate >20: No Heart Rate >90: Yes Temp<36 C (96.8 F) or >38.3 C: No SBP <90 or MAP <65 mmHG: No New Acute Mental Status Change: No Is the patient on CPAP, BIPAP,: No Physician Orders Chest Portable (02/25/25 18:59) Sodium Chloride 0.9% (02/25/25 19:00) Blood Culture (02/25/25 18:59) Ct Ab Pel Wo Con-No Oral Or Iv (02/25/25 20:38) Azithromycin 500mg/ 250ml (Zithromax 50 (02/26/25 10:00) Ceftriaxone 1gm/50ml (Rocephin) (02/26/25 10:00) Ondansetron Hcl (Zofran) (02/25/25 23:00) Morphine Sulfate Injection (02/25/25 23:00) Furosemide Injection (Lasix Injection) (02/26/25 10:00) Pantoprazole (Protonix) (02/26/25 10:00) Hydrocodone-Acet 5/325mg Tab ([place] 5/32 (02/25/25 23:00) Acetaminophen Tablet (Tylenol Tablet) (02/25/25 23:00) Ipratropium Medneb (Atrovent Medneb) (02/26/25 00:00) Complete Blood Count (02/26/25 05:00) Complete Blood Count (02/27/25 05:00) Complete Blood Count (02/28/25 05:00) Lactic Acid W/ Reflex Order (02/26/25 06:00) Lactic Acid W/ Reflex Order (02/26/25 12:00) Basic Metabolic Panel (02/26/25 05:00) Basic Metabolic Panel (02/27/25 05:00) Basic Metabolic Panel (02/28/25 05:00) Admit (02/25/25 22:49) Stat Ekg For Chest Pain (02/25/25 22:49) Notify Md Of Changes From Base (02/25/25 22:49) Fruit Vendor For 24 Hours (02/25/25 22:49) Emergency Dysrhythmia Protocol (02/25/25 22:49) Rhythm Strips Once Every Shift (02/25/25 22:49) Oxygen By Nasal Cannula (02/25/25 22:49) * Radiologist Consult (02/25/25 22:49) * Gi Dvh Product Control And Logistics Analyst (02/25/25 22:49) Abdomen Limited (02/25/25 22:49) Potassium Chl 20meq/100ml (02/25/25 23:15) Mrsa Screen (02/25/25 23:35) Vital Signs Date Time Temp Pulse Resp B/P (MAP) Pulse Ox O2 Delivery O2 Flow Rate FiO2 02/26/25 00:01 97.9 107 24 140/92 99 5.0 40 97.9 02/25/25 23:51 100 22 99 02/25/25 23:45 107 24 98 02/25/25 23:45 98 Nasal Cannula 5.0 02/25/25 23:45 98 Nasal Cannula* 5 40 02/25/25 20:15 115/80 02/25/25 19:50 93 Nasal Cannula* 2 28 02/25/25 19:46 97.9 121 20 140/92 (108) 88 97.9 02/25/25 19:06 113 02/25/25 17:38 113 02/25/25 17:30 97.6 114 20 137/94 95 97.6 Laboratory Tests Test 02/25/25 19:09 02/25/25 21:07 Lactic Acid Level 2.1 mmol/L (0.4-2.0) *H 2.5 mmol/L (0.4-2.0) *H White Blood Count 8.7 10^3/uL (4.4-10.8) Medications Medications Dose Ordered Sig/Jose Luis Route Start Time Stop Time Status Last Admin Dose Admin Azithromycin 250 ml @ 125 mls/hr ONCE ONCE IV 02/25/25 19:00 02/25/25 20:59 DC 02/25/25 20:15 125 MLS/HR Ceftriaxone Sodium 50 ml @ 100 mls/hr ONCE ONCE IV 02/25/25 19:00 02/25/25 19:29 DC 02/25/25 20:38 100 MLS/HR Furosemide 40 mg ONCE ONCE IV 02/25/25 20:30 02/25/25 20:31 DC 02/25/25 20:15 40 MG Ipratropium [place] 0.5 mg Q6HR NEB 02/26/25 00:00 02/25/25 23:45 0.5 MG Sodium Chloride 1,000 ml @ 150 mls/hr Q6H40M ONCE IV 02/25/25 19:00 02/26/25 01:39 02/25/25 20:15 150 MLS/HR Sodium Chloride 1,000 ml @ 1,000 mls/hr Q1H ONCE IV 02/25/25 19:00 02/25/25 19:59 DC 02/25/25 20:38 1,000 MLS/HR Labs/Xrays Labs Test 02/25/25 23:50 02/25/25 21:07 02/25/25 21:01 02/25/25 19:09 Range/Units Urine Color Colorless Yellow Urine Clarity Clear Clear Urine pH 6.0 5.0-9.0 Urine Specific [place] 1.005 1.001-1.035 Urine Protein Negative Negative Urine Ketones Negative Negative Urine Blood Negative Negative /uL Urine Nitrite Negative Negative Urine Bilirubin Negative Negative Urine Urobilinogen Normal Negative mg/dL Urine Leukocyte Esterase Negative Negative /uL Urine RBC <1 0 - 4 /hpf Urine Microscopic WBC 2 0-5 /HPF Urine Squamous Epithelial Cells Few <5 /hpf Urine Bacteria None seen None Seen /hpf Urine Glucose Normal Normal mg/dL Urine Opiates Screen Neg NEGATIVE Urine Fentanyl Screen Neg NEGATIVE Urine Barbiturates Screen Neg NEGATIVE Urine Phencyclidine Screen Neg NEGATIVE Urine Amphetamines Screen Pos NEGATIVE Urine Benzodiazepines Screen Neg NEGATIVE Urine Cocaine Screen Neg NEGATIVE Urine Cannabinoids Screen Neg NEGATIVE Lactic Acid Level 2.5 *H 0.4-2.0 mmol/L Magnesium Level 2.0 1.6-2.6 mg/dL White Blood Count 8.7 4.4-10.8 10^3/uL Red Blood Count 5.03 4.0-5.20 10^6/uL Hemoglobin 13.4 12.2-16.2 g/dL Hematocrit 41.0 36.0-46.0 % Mean Corpuscular Volume 81.6 80.0-100.0 fL Mean Corpuscular Hemoglobin 26.7 L 28.0-32.0 pg Mean Corpuscular Hemoglobin Concent 32.8 32.0-36.0 g/dL Red Cell Distribution Width 19.4 H 11.8-14.3 % Platelet Count 398 140-450 10^3/uL Mean Platelet Volume 7.4 6.9-10.8 fL Neutrophils (%) (Auto) 81.2 H 37.0-80.0 % Lymphocytes (%) (Auto) 7.3 L 10.0-50.0 % Monocytes (%) (Auto) 10.3 0.0-12.0 % Eosinophils (%) (Auto) 0.5 0.0-7.0 % Basophils (%) (Auto) 0.7 0.0-2.0 % Neutrophils # (Auto) 7.0 1.6-8.6 10 ^3/uL Lymphocytes # (Auto) 0.6 0.4-5.4 10 ^3/uL Monocytes # (Auto) 0.9 0-1.3 10 ^3/uL Eosinophils # (Auto) 0 0-0.8 10 ^3/uL Basophils # (Auto) 0.1 0-0.2 10 ^3/uL Nucleated Red Blood Cells 0.1 % Sodium Level 138 136-145 mmol/L Potassium Level 3.3 L 3.5-5.1 mmol/L Chloride Level 102 98-107 mmol/L Carbon Dioxide Level 23 20-31 mmol/L Anion Gap 13 5-15 Blood Urea Nitrogen 15 9-23 mg/dL Creatinine 0.98 0.550-1.02 mg/dL Glomerular Filtration Rate Calc 64 >90 mL/min BUN/Creatinine Ratio 15.3 10.0-20.0 Serum Glucose 100 74-106 mg/dL Calcium Level 9.4 8.7-10.4 mg/dL Total Bilirubin 0.8 0.2-1.0 mg/dL Aspartate Amino Transferase (AST) 37 13-40 U/L Alanine Aminotransferase (ALT) 23 7-40 U/L Alkaline Phosphatase 92 46-116 U/L Total Protein 7.3 5.7-8.2 g/dL Albumin 4.0 3.2-4.8 g/dL Assessment/Plan Problem List: (1) Intractable abdominal pain (2) Cholelithiasis (3) Pneumonia (4) Lactic acid acidosis Plan This is a 64 yo female with known history of pulmonary hypertension , ischemic cardiomyopathy, CAD s/p PCI, COPD, amphetamine abuse who presents to the hospital with abdominal pain , patient was found to have 1. cholelithiasis 2. abdominal pain 3. Lactic acidosis 4. Pneumonia 5. Amphetamine abuse 6. Hypertension 7. COPD 8. CHF 9. abdominal ascites plan Admit Telemetry Gastroenterology consultation Interventional radiology consultation IV antibiotics Bronchodilators Analgesics as needed Discussed all above with patient who verbalizes agreement and understanding of care plan. All questions were answered. Plan discussed with: Patient, Other Code Visit Code Visit Total Time (mins): 45 Additional Comments Additional Comments Additional Comments This is a 64 yo female with known history of pulmonary hypertension , ischemic cardiomyopathy, CAD s/p PCI, COPD, amphetamine abuse who presents to the hospital with abdominal pain , patient was found to have 64-year-old female with a known history of pulmonary hypertension, ischemic cardiomyopathy, CAD status post PCI, COPD, chronic meth use presented to the hospital with the abdominal pain patient was found to have 1. Cholelithiasis ruled out acute cholecystitis 2. Abdominal pain 3. Suspected pneumonia 4. Congestive heart failure not in exacerbation 5. Chronic meth use 6. COPD 7. Abdominal ascites -IV antibiotics, GI consultation, IR consult for paracentesis. MIRANDA WICK Feb 26, 2025 01:17 PING SANDERSON MD Feb 26, 2025 16:59
[2025-02-26] MEDS: MORPHINE SULFATE INJ 2 MG/ml SYRG IV PRN (02:50)
[2025-02-26] MEDS: ACETAMINOPHEN 325 MG TAB PO PRN (02:51)
[2025-02-26] MEDS: MORPHINE SULFATE 4 MG/ML SYR/VIAL ONE (02:52)
[2025-02-26 06:26] LABS: Hematocrit 36.6 % (36.0-46.0); Hemoglobin 11.5 g/dL (12.2-16.2); Mean Corpuscular Hemoglobin 26.5 pg (28.0-32.0); Mean Corpuscular Volume 84.2 fL (80.0-100.0); Nucleated Red Blood Cells % 0.1 %
[2025-02-26 06:47] LABS: Sodium 141 mmol/L (136-145)
[2025-02-26 06:48] LABS: Anion Gap 12 (5-15)
[2025-02-26 06:49] LABS: Calcium 7.9 mg/dL (8.7-10.4); Carbon Dioxide 20 mmol/L (20-31); Chloride 109 mmol/L (98-107); Potassium 3.4 mmol/L (3.5-5.1)
[2025-02-26 06:53] LABS: BUN/Creatinine Ratio 18.1 (10.0-20.0); Blood Urea Nitrogen 13 mg/dL (9-23); Glucose 90 mg/dL (74-106)
[2025-02-26 08:53] LABS: Ferritin 45.5 ng/mL (10-291)
[2025-02-26 09:09] LABS: Total Iron Binding Capacity 291.0 ug/dL (250-425)
[2025-02-26 09:32] LABS: Iron 36.0 ug/dL (50-170)
[2025-02-26] MEDS: PANTOPRAZOLE 40 MG/10 ML VIAL INJ IV SCH (09:36)
[2025-02-26] MEDS: FUROSEMIDE 40 MG/4 ML VIAL IV SCH (09:36)
[2025-02-26] MEDS ORDERED: LEVO50TA7 PO (10:38)
[2025-02-26] MEDS: AZITHROMYCIN 500MG/ 250ML 250 ML IV SCH (11:14)
[2025-02-26 13:33] LABS: Lactic Acid w/Reflex 2.9 mmol/L (0.4-2.0)
[2025-02-26] MEDS: OPTISON 3ml Vial for INJ IV ONE ×2 (17:11→17:18)
--- NOTE | 2025-02-26 20:47 | DVHINCON2 ---
Date of service: Feb 26, 2025 History of Present Illness PEr HPI - "64 yo female who presents with a chief complaint of nonradiating, epigastric abdominal pain and nausea. Endorsement of 2x day history following initial, unprovoked and atraumatic onset. No reported modifiers. No recent sick contact, injuries, spoiled food consumption, or pertinent events or history endorsed. Significant medical history of CAD, CHF, COPD, CVA, HLD, HTN, CT, PTCA, Pacemaker, and polysubstance abuse. Denial of any vomiting, diarrhea, urinary symptoms constipation, fever, chills, or further associated symptoms. Patient admitted for further evaluation." During my encounter, pt was every anxious and hyperventilating. Denies abd pain at this times, says has panic attacks. Appears in meth withdrawals Past Medical History Reviewed Past Surgical History Reviewed Family History: Alzheimer's disease G8 MOTHER, Onset:50's - 60 Depression G8 MOTHER, Onset:40's - 50 Hypertension G8 MOTHER, Onset:40's - 50 Allergies: Coded Allergies: NO KNOWN ALLERGIES (Unverified , 09/23/24) Home Meds Active Scripts Acetaminophen (Acetaminophen) 500 Mg Tab, 500 MG PO Q4HP PRN, #30 TAB Prov:AZIZA KOCH PAC 12/30/24 Dicyclomine Hcl (BENTYL CAPSULE) 10 Mg Cp, 1 CAP PO Q6HP PRN, #20 CAP 0 Refills Prov:AZIZA KOCH PAC 12/30/24 Reported Medications Levothyroxine Sodium (Levothyroxine Sodium) 50 Mcg Tab, 50 MCG PO QAM for 30 Days, MCG 02/26/25 Sacubitril-Valsartan (Entresto 24-26 mg) 1 Tab Tab, 1 TAB PO DAILY for HF, TAB 09/23/24 Potassium Chloride (Klor-Con 8) 8 Meq Tab, 8 MEQ PO DAILY for SUPPLEMENT, TAB 09/23/24 Sildenafil Citrate (SILDENAFIL CITRATE) 20 Mg Tab, 20 MG PO DAILY@0900 for PULMONARY HTN, TAB 04/29/24 Spironolactone (Spironolactone) 25 Mg Tab, 1 TAB PO DAILY for EDEMA/HTN 09/10/23 Clopidogrel Bisulfate (Plavix) 75 Mg Tab, 1 TAB PO DAILY for A.FIB 09/10/23 Aspirin (Aspirin Low Dose) 81 Mg Chw, 1 TAB PO DAILY for PREVENT BLOOD CLOTS 09/10/23 Furosemide (Furosemide) 40 Mg Tab, 1 TAB PO DAILY for EDEMA 09/10/23 Amiodarone Hcl (Amiodarone Hcl) 200 Mg Tab, 1 TAB PO DAILY for A.FIB 09/10/23 Current Medications Current Medications Medications (Trade) Dose Ordered Sig/Jose Luis Route PRN Reason Start Time Stop Time Status Last Admin Azithromycin 250 ml @ 125 mls/hr DAILY IV 02/26/25 10:00 02/26/25 11:14 Ceftriaxone Sodium 50 ml @ 100 mls/hr DAILY IV 02/26/25 10:00 02/26/25 09:35 Ondansetron HCl (Zofran) 4 mg Q6HP PRN IV NAUSEA / VOMITING 02/25/25 23:00 Morphine Sulfate 2 mg Q6HP PRN IV PAIN SCALE 7 THRU 10 02/25/25 23:00 02/26/25 02:50 Furosemide (Lasix Injection) 40 mg DAILY IV 02/26/25 10:00 02/26/25 09:36 Pantoprazole Sodium (Protonix) 40 mg DAILY IV 02/26/25 10:00 02/26/25 09:36 Acetaminophen/ Hydrocodone Bitart ([place] 5/325MG Tab) 1 tab Q6HPRN PRN PO PAIN SCALE 1 THRU 6 02/25/25 23:00 Acetaminophen (Tylenol Tablet) 650 mg Q6HPRN PRN PO PAIN SCALE 1-3 OR TEMP>100.4 02/25/25 23:00 02/26/25 02:51 Ipratropium [place] (Atrovent Medneb) 0.5 mg Q6HR NEB 02/26/25 00:00 02/26/25 18:57 Review of Systems 14 point ROS negative except mentioned above Vital Signs Vital Signs Date Time Temp Pulse Resp B/P (MAP) Pulse Ox O2 Delivery O2 Flow Rate FiO2 02/26/25 18:58 96 22 99 02/26/25 18:50 Nasal Cannula 4.0 02/26/25 18:50 36 02/26/25 18:29 97.7 110/76 (87) 97.7 Physical Exam GE: in distress, anxious CVS: tachycardic Lungs: hyperventillating and dysniec Abdomen: soft, nondistended, nontender, BS+ Labs/Diagnostic Data Labs Test 02/26/25 14:44 02/26/25 06:09 02/26/25 05:00 02/25/25 23:50 Range/Units Lactic Acid Level 3.0 *H 0.4-2.0 mmol/L Sodium Level 141 136-145 mmol/L Potassium Level 3.4 L 3.5-5.1 mmol/L Chloride Level 109 H 98-107 mmol/L Carbon Dioxide Level 20 20-31 mmol/L Anion Gap 12 5-15 Blood Urea Nitrogen 13 9-23 mg/dL Creatinine 0.72 0.550-1.02 mg/dL Glomerular Filtration Rate Calc 92 >90 mL/min BUN/Creatinine Ratio 18.1 10.0-20.0 Serum Glucose 90 74-106 mg/dL Calcium Level 7.9 L 8.7-10.4 mg/dL Iron Level 36 L 50-170 ug/dL Total Iron Binding Capacity 291 250-425 ug/dL Percent Iron Saturation 12.4 L 15-50 % Ferritin 45.5 10-291 ng/mL Vitamin B12 Level 484 211-911 pg/mL White Blood Count 7.4 4.4-10.8 10^3/uL Red Blood Count 4.35 4.0-5.20 10^6/uL Hemoglobin 11.5 L 12.2-16.2 g/dL Hematocrit 36.6 # 36.0-46.0 % Mean Corpuscular Volume 84.2 80.0-100.0 fL Mean Corpuscular Hemoglobin 26.5 L 28.0-32.0 pg Mean Corpuscular Hemoglobin Concent 31.5 L 32.0-36.0 g/dL Red Cell Distribution Width 19.9 H 11.8-14.3 % Platelet Count 288 140-450 10^3/uL Mean Platelet Volume 7.0 6.9-10.8 fL Neutrophils (%) (Auto) 81.7 H 37.0-80.0 % Lymphocytes (%) (Auto) 8.7 L 10.0-50.0 % Monocytes (%) (Auto) 8.9 0.0-12.0 % Eosinophils (%) (Auto) 0.2 0.0-7.0 % Basophils (%) (Auto) 0.5 0.0-2.0 % Neutrophils # (Auto) 6.1 1.6-8.6 10 ^3/uL Lymphocytes # (Auto) 0.6 0.4-5.4 10 ^3/uL Monocytes # (Auto) 0.7 0-1.3 10 ^3/uL Eosinophils # (Auto) 0 0-0.8 10 ^3/uL Basophils # (Auto) 0 0-0.2 10 ^3/uL Nucleated Red Blood Cells 0.1 % Urine Color Colorless Yellow Urine Clarity Clear Clear Urine pH 6.0 5.0-9.0 Urine Specific [place] 1.005 1.001-1.035 Urine Protein Negative Negative Urine Ketones Negative Negative Urine Blood Negative Negative /uL Urine Nitrite Negative Negative Urine Bilirubin Negative Negative Urine Urobilinogen Normal Negative mg/dL Urine Leukocyte Esterase Negative Negative /uL Urine RBC <1 0 - 4 /hpf Urine Microscopic WBC 2 0-5 /HPF Urine Squamous Epithelial Cells Few <5 /hpf Urine Bacteria None seen None Seen /hpf Urine Glucose Normal Normal mg/dL Urine Opiates Screen Neg NEGATIVE Urine Fentanyl Screen Neg NEGATIVE Urine Barbiturates Screen Neg NEGATIVE Urine Phencyclidine Screen Neg NEGATIVE Urine Amphetamines Screen Pos NEGATIVE Urine Benzodiazepines Screen Neg NEGATIVE Urine Cocaine Screen Neg NEGATIVE Urine Cannabinoids Screen Neg NEGATIVE Test 02/25/25 21:01 02/25/25 19:09 Range/Units Magnesium Level 2.0 1.6-2.6 mg/dL Total Bilirubin 0.8 0.2-1.0 mg/dL Aspartate Amino Transferase (AST) 37 13-40 U/L Alanine Aminotransferase (ALT) 23 7-40 U/L Alkaline Phosphatase 92 46-116 U/L Total Protein 7.3 5.7-8.2 g/dL Albumin 4.0 3.2-4.8 g/dL Microbiology Date/Time Source Procedure Growth Status 02/26/25 03:43 Nose MRSA Screen - Final Complete 02/25/25 19:09 Blood Blood Culture - Preliminary NO GROWTH AFTER 24 HOURS OF INCUBATION. Resulted Assessment #Abdominal pain #N/V #Large HH #Cholelithiasis normal liver enzymes #Anasarca #Meth abuse, in withdrawals currently -Supportive care -Protonic IV BID -No clear evidence of biliary colic. Low fat diet -Needs EGD with MAC as out pt for further eval of large HH, if needs surgical repair. Pt never had EGD and c/o food regurgitation to throat. Small meals recommended -Meth abuse abstinence recommended -Care plan discussed with pt and RN Thank you for the consult. Plan discussed with: Patient, Other TYSON ATKINS MD Feb 26, 2025 20:47
[2025-02-26] MEDS: LORazepam 2MG/ML-1ML VIAL IV ONE (21:03)
[2025-02-27] VITALS (19 sets, daily range): BP systolic 102–136; BP diastolic 80–96; PULSE 78–114; RESP 18–24; TEMP 96.9–99.1; O2SAT 92–100
[2025-02-27 09:07] LABS: Hematocrit 40.8 % (36.0-46.0); Hemoglobin 13.0 g/dL (12.2-16.2); Mean Corpuscular Hemoglobin 26.6 pg (28.0-32.0); Mean Corpuscular Volume 83.4 fL (80.0-100.0); Nucleated Red Blood Cells % 0.0 %
[2025-02-27 09:22] LABS: INR 1.14 (0.9-1.15); Partial Thromboplastin Time 26.0 SEC (24.5-34.5); Prothrombin Time 11.9 sec (9.3-11.8)
[2025-02-27 09:24] LABS: Chloride 102 mmol/L (98-107); Potassium 3.8 mmol/L (3.5-5.1)
[2025-02-27 09:25] LABS: Anion Gap 14 (5-15); Calcium 9.1 mg/dL (8.7-10.4)
[2025-02-27 09:28] LABS: Carbon Dioxide 19 mmol/L (20-31); Sodium 135 mmol/L (136-145)
[2025-02-27 09:30] LABS: BUN/Creatinine Ratio 14.1 (10.0-20.0); Blood Urea Nitrogen 13 mg/dL (9-23); Glucose 105 mg/dL (74-106)
--- NOTE | 2025-02-27 16:32 | DVHPN2 ---
Subjective Overnight events noted. Patient has stated that she does not feel good. 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 Medications Current Medications Medications Dose Ordered Sig/Jose Luis Route Start Time Stop Time Status Last Admin Dose Admin Azithromycin 250 ml @ 125 mls/hr DAILY IV 02/26/25 10:00 02/27/25 12:39 125 MLS/HR Ceftriaxone Sodium 50 ml @ 100 mls/hr DAILY IV 02/26/25 10:00 02/27/25 10:18 100 MLS/HR Ondansetron HCl 4 mg Q6HP PRN IV 02/25/25 23:00 Morphine Sulfate 2 mg Q6HP PRN IV 02/25/25 23:00 02/26/25 02:50 2 MG Furosemide 40 mg DAILY IV 02/26/25 10:00 02/27/25 10:19 40 MG Pantoprazole Sodium 40 mg DAILY IV 02/26/25 10:00 02/27/25 10:18 40 MG Acetaminophen/ Hydrocodone Bitart 1 tab Q6HPRN PRN PO 02/25/25 23:00 Acetaminophen 650 mg Q6HPRN PRN PO 02/25/25 23:00 02/26/25 02:51 650 MG Ipratropium [place] 0.5 mg Q6HR NEB 02/26/25 00:00 02/27/25 11:53 0.5 MG Lorazepam 1 mg Q6HP PRN PO 02/27/25 16:10 Laboratory Results Laboratory Tests 02/27/25 08:37 Chemistry Test 02/27/25 08:37 Calcium Level 9.1 mg/dL (8.7-10.4) Coagulation Test 02/27/25 08:37 Prothrombin Time 11.9 sec (9.3-11.8) H Prothrombin Time INR 1.14 (0.9-1.15) Activated Partial Thromboplast Time 26.0 SEC (24.5-34.5) Urinalysis Test 02/25/25 23:50 Urine Color Colorless (Yellow) Urine Clarity Clear (Clear) Urine pH 6.0 (5.0-9.0) Urine Specific [place] 1.005 (1.001-1.035) Urine Protein Negative (Negative) Urine Ketones Negative (Negative) Urine Blood Negative /uL (Negative) Urine Nitrite Negative (Negative) Urine Bilirubin Negative (Negative) Urine Urobilinogen Normal mg/dL (Negative) Urine Leukocyte Esterase Negative /uL (Negative) Urine RBC <1 /hpf (0 - 4) Urine Microscopic WBC 2 /HPF (0-5) Urine Squamous Epithelial Cells Few /hpf (<5) Urine Bacteria None seen /hpf (None Seen) Urine Glucose Normal mg/dL (Normal) Microbiology Microbiology Date/Time Source Procedure Growth Status 02/26/25 03:43 Nose MRSA Screen - Final Complete 02/25/25 19:09 Blood Blood Culture - Preliminary NO GROWTH AFTER 24 HOURS OF INCUBATION. Resulted Assessment/Plan Assessment/Plan This is a 64 yo female with known history of pulmonary hypertension , ischemic cardiomyopathy, CAD s/p PCI, COPD, amphetamine abuse who presents to the hospital with abdominal pain , patient was found to have 64-year-old female with a known history of pulmonary hypertension, ischemic cardiomyopathy, CAD status post PCI, COPD, chronic meth use presented to the hospital with the abdominal pain patient was found to have 1. Cholelithiasis ruled out acute cholecystitis 2. Abdominal pain 3. Suspected pneumonia 4. Congestive heart failure not in exacerbation 5. Chronic meth use 6. COPD 7. Abdominal ascites Plan discussed with: Patient My Orders Orders - PING SANDERSON MD Procedure Category Date Status Time Lorazepam Tablet PHA 02/27/25 In Process (Ativan Tablet) 16:10 Date of Service: Feb 27, 2025 Billing Provider: PING SANDERSON MD Common Visit Codes: NOT BILLABLE PING SANDERSON MD Feb 27, 2025 16:32
[2025-02-27] MEDS: ONDANSETRON HCL 4 MG/2 ML VIAL IV PRN (17:24)
[2025-02-27] MEDS: LORazepam 0.5 MG TAB PO PRN (17:24)
[2025-02-28] VITALS (14 sets, daily range): BP systolic 91–115; BP diastolic 62–80; PULSE 98–108; RESP 16–28; TEMP 97.9–98.6; O2SAT 92–100
[2025-02-28 07:01] LABS: Hematocrit 37.2 % (36.0-46.0); Hemoglobin 12.0 g/dL (12.2-16.2); Mean Corpuscular Hemoglobin 26.6 pg (28.0-32.0); Mean Corpuscular Volume 82.6 fL (80.0-100.0); Nucleated Red Blood Cells % 0.1 %
[2025-02-28 07:09] LABS: Chloride 102 mmol/L (98-107); Potassium 4.0 mmol/L (3.5-5.1)
[2025-02-28 07:10] LABS: Anion Gap 13 (5-15); Carbon Dioxide 21 mmol/L (20-31)
[2025-02-28 07:11] LABS: Calcium 9.0 mg/dL (8.7-10.4); Sodium 136 mmol/L (136-145)
[2025-02-28 07:15] LABS: Glucose 96 mg/dL (74-106)
[2025-02-28 07:16] LABS: BUN/Creatinine Ratio 17.1 (10.0-20.0); Blood Urea Nitrogen 19 mg/dL (9-23)
[2025-02-28] MEDS ORDERED: PANT40TA2 PO (14:30)
[2025-02-28] MEDS: ALBUTEROL SULF 2.5 MG/0.5ML(0.5%) NEB SOLN ONE (15:50)
[2025-02-28] MEDS: IPRATROPIUM BROM 0.5 MG/2.5ML INH SOL ONE (15:50)
[2025-02-28] MEDS: IPRATROPIUM BROM 0.5 MG/2.5ML INH SOL NEB SCH (15:51)
[2025-02-28] MEDS: ALBUTEROL SULF 2.5 MG/0.5ML(0.5%) NEB SOLN NEB SCH (15:51)
[2025-02-28] MEDS: HYDROcodone-ACET 5/325MG TAB PO PRN (15:54)
[2025-02-28] MEDS ORDERED: IPRATROPIUM BROM 0.5 MG/2.5ML INH SOL NEB SCH (16:00)
[2025-02-28] MEDS ORDERED: ALBUTEROL SULF 2.5 MG/0.5ML(0.5%) NEB SOLN NEB SCH (16:00)
--- NOTE | 2025-02-28 17:29 | DVHPN2 ---
Subjective Overnight events noted. Patient has stated that she does not feel good. She kept complaining of coughing. Changes from previous H/P or p: No Changes Objective Vitals Vital Signs Date Time Temp Pulse Resp B/P (MAP) Pulse Ox O2 Delivery O2 Flow Rate FiO2 02/28/25 16:54 98.6 104 19 107/76 (86) 94 98.6 02/28/25 15:51 Nasal Cannula 4.0 02/28/25 15:51 36 Intake/Output Intake and Output 02/28/25 07:00 Intake Total 800 ml Balance 800 ml Intake Oral 500 ml IV Total 300 ml # Voids 5 # Bowel Movements 1 Exam HEENT pupils are reactive Neck is supple CV is S1-S2 regular rate and rhythm Respiratory diminished breath sounds bases GI positive bowel sound Extremity no edema [employer]ARD[employer] no motor deficit Medications Current Medications Medications Dose Ordered Sig/Jose Luis Route Start Time Stop Time Status Last Admin Dose Admin Azithromycin 250 ml @ 125 mls/hr DAILY IV 02/26/25 10:00 02/28/25 10:14 125 MLS/HR Ceftriaxone Sodium 50 ml @ 100 mls/hr DAILY IV 02/26/25 10:00 02/28/25 09:40 100 MLS/HR Ondansetron HCl 4 mg Q6HP PRN IV 02/25/25 23:00 02/27/25 17:24 4 MG Morphine Sulfate 2 mg Q6HP PRN IV 02/25/25 23:00 02/26/25 02:50 2 MG Furosemide 40 mg DAILY IV 02/26/25 10:00 02/28/25 10:13 40 MG Pantoprazole Sodium 40 mg DAILY IV 02/26/25 10:00 02/28/25 09:40 40 MG Acetaminophen/ Hydrocodone Bitart 1 tab Q6HPRN PRN PO 02/25/25 23:00 02/28/25 15:54 1 TAB Acetaminophen 650 mg Q6HPRN PRN PO 02/25/25 23:00 02/26/25 02:51 650 MG Lorazepam 1 mg Q6HP PRN PO 02/27/25 16:10 02/27/25 17:24 1 MG Guaifenesin 200 mg Q4HP PRN PO 02/28/25 15:00 02/28/25 15:53 200 MG Albuterol 2.5 mg Q4HWA NEB 02/28/25 18:00 02/28/25 15:51 2.5 MG Ipratropium [place] 0.5 mg Q4HWA NEB 02/28/25 18:00 02/28/25 15:51 0.5 MG Albuterol 2.5 mg Q2HPRN PRN NEB 02/28/25 16:00 Ipratropium [place] 0.5 mg Q2HPRN PRN [facility] 02/28/25 16:00 Laboratory Results Laboratory Tests 02/28/25 06:24 Chemistry Test 02/28/25 06:24 Calcium Level 9.0 mg/dL (8.7-10.4) Urinalysis Test 02/25/25 23:50 Urine Color Colorless (Yellow) Urine Clarity Clear (Clear) Urine pH 6.0 (5.0-9.0) Urine Specific [place] 1.005 (1.001-1.035) Urine Protein Negative (Negative) Urine Ketones Negative (Negative) Urine Blood Negative /uL (Negative) Urine Nitrite Negative (Negative) Urine Bilirubin Negative (Negative) Urine Urobilinogen Normal mg/dL (Negative) Urine Leukocyte Esterase Negative /uL (Negative) Urine RBC <1 /hpf (0 - 4) Urine Microscopic WBC 2 /HPF (0-5) Urine Squamous Epithelial Cells Few /hpf (<5) Urine Bacteria None seen /hpf (None Seen) Urine Glucose Normal mg/dL (Normal) Microbiology Microbiology Date/Time Source Procedure Growth Status 02/26/25 03:43 Nose MRSA Screen - Final Complete 02/25/25 19:09 Blood Blood Culture - Preliminary NO GROWTH AFTER 48 HOURS OF INCUBATION. Resulted Assessment/Plan Assessment/Plan This is a 64 yo female with known history of pulmonary hypertension , ischemic cardiomyopathy, CAD s/p PCI, COPD, amphetamine abuse who presents to the hospital with abdominal pain , patient was found to have 64-year-old female with a known history of pulmonary hypertension, ischemic cardiomyopathy, CAD status post PCI, COPD, chronic meth use presented to the hospital with the abdominal pain patient was found to have 1. Cholelithiasis ruled out acute cholecystitis 2. Abdominal pain 3. Suspected pneumonia 4. Congestive heart failure not in exacerbation 5. Chronic meth use 6. COPD 7. Worsening cough Add Robitussin plain, continue current antibiotics, discharge plan Plan discussed with: Patient My Orders Orders - PING SANDERSON MD Procedure Category Date Status Time Guaifenesin Plain PHA 02/28/25 In Process Liquid (Robitussin [place] 15:00 * Shank Faker CONS 02/28/25 Transmitted Consult Albuterol Medneb PHA 02/28/25 In Process (Ventolin Medneb) 18:00 Ipratropium Medneb PHA 02/28/25 In Process (Atrovent Medneb) 18:00 Albuterol Medneb PHA 02/28/25 In Process (Ventolin Medneb) 16:00 Ipratropium Medneb PHA 02/28/25 In Process (Atrovent Medneb) 16:00 Date of Service: Feb 28, 2025 Billing Provider: PING SANDERSON MD Common Visit Codes: NOT BILLABLE PING SANDERSON MD Feb 28, 2025 17:29
--- NOTE | 2025-02-28 22:30 | DVHPN2 ---
Progress Note - Dictate Date Seen: Feb 28, 2025 Medical Necessity Reason Pt with a Central, PICC or Fol: No Subjective Patient was seen at bedside this evening at 4:00 p.m. Patient was not feeling well complaining of shortness of breath and cough She also had mild diffuse abdominal pain vital signs Vital Sign Date Time Temp Pulse Resp B/P (MAP) Pulse Ox O2 Delivery O2 Flow Rate FiO2 02/28/25 20:13 98 Nasal Cannula 4.0 02/28/25 20:13 36 02/28/25 20:00 102 22 02/28/25 16:54 98.6 107/76 (86) 98.6 Total Intake and Output 02/27/25 02/27/25 02/28/25 15:00 23:00 07:00 Intake Total 300 ml 500 ml Balance 300 ml 500 ml medications Current Medications Medications Dose Ordered Sig/Jose Luis Route Start Time Stop Time Status Last Admin Dose Admin Azithromycin 250 ml @ 125 mls/hr DAILY IV 02/26/25 10:00 02/28/25 10:14 125 MLS/HR Ceftriaxone Sodium 50 ml @ 100 mls/hr DAILY IV 02/26/25 10:00 02/28/25 09:40 100 MLS/HR Ondansetron HCl 4 mg Q6HP PRN IV 02/25/25 23:00 02/27/25 17:24 4 MG Morphine Sulfate 2 mg Q6HP PRN IV 02/25/25 23:00 02/26/25 02:50 2 MG Furosemide 40 mg DAILY IV 02/26/25 10:00 02/28/25 10:13 40 MG Pantoprazole Sodium 40 mg DAILY IV 02/26/25 10:00 02/28/25 09:40 40 MG Acetaminophen/ Hydrocodone Bitart 1 tab Q6HPRN PRN PO 02/25/25 23:00 02/28/25 15:54 1 TAB Acetaminophen 650 mg Q6HPRN PRN PO 02/25/25 23:00 02/26/25 02:51 650 MG Lorazepam 1 mg Q6HP PRN PO 02/27/25 16:10 02/27/25 17:24 1 MG Guaifenesin 200 mg Q4HP PRN PO 02/28/25 15:00 02/28/25 15:53 200 MG Albuterol 2.5 mg Q4HWA NEB 02/28/25 18:00 02/28/25 22:02 2.5 MG Ipratropium [place] 0.5 mg Q4HWA NEB 02/28/25 18:00 02/28/25 22:01 0.5 MG Albuterol 2.5 mg Q2HPRN PRN NEB 02/28/25 16:00 Ipratropium [place] 0.5 mg Q2HPRN PRN [facility] 02/28/25 16:00 objective HEENT pupils are reactive Neck is supple CV is S1-S2 regular rate and rhythm Respiratory diminished breath sounds bases GI positive bowel sound Extremity no edema [employer] no motor deficit laboratory and microbiology Laboratory Tests 02/28/25 06:24 Test 02/28/25 06:24 Range/Units Serum Glucose 96 74-106 mg/dL RUQ USG IMPRESSION: 1. Cholelithiasis and gallbladder wall thickening, in the absence of distention and sonographic Lundy's sign, unlikely to represent acute calculus cholecystitis. Consider nuclear medicine hepatobiliary scan if there is persistent clinical uncertainty. 2. Cirrhotic hepatic characteristics. Problems(with codes): (1) Intractable abdominal pain (2) Lactic acid acidosis (3) Cholelithiasis (4) CHF (congestive heart failure) (5) Abdominal pain (6) Acute pancreatitis Prognosis Plan Patient is on IV antibiotics for suspected pulmonary process Respiratory repeat ongoing Check repeat liver enzymes CRP Check HIDA scan to further evaluate gallstones Bentyl as needed for abdominal pain I will follow up patient with you Plan discussed with: Patient, Other (Nurse) TRACY FORD MD Feb 28, 2025 22:30
[2025-03-01] VITALS (21 sets, daily range): BP systolic 102–113; BP diastolic 66–85; PULSE 83–108; RESP 17–24; TEMP 97–99.1; O2SAT 89–99
[2025-03-01] MEDS: IPRATROPIUM BROM 0.5 MG/2.5ML INH SOL NEB PRN (03:40)
[2025-03-01] MEDS: ALBUTEROL SULF 2.5 MG/0.5ML(0.5%) NEB SOLN NEB PRN (03:40)
[2025-03-01 06:49] LABS: Mean Corpuscular Hemoglobin 26.7 pg (28.0-32.0)
[2025-03-01 06:51] LABS: Hematocrit 37.0 % (36.0-46.0); Hemoglobin 11.9 g/dL (12.2-16.2); Mean Corpuscular Volume 82.7 fL (80.0-100.0); Nucleated Red Blood Cells % 0.2 %
[2025-03-01 06:59] LABS: Albumin 3.2 g/dL (3.2-4.8); Alkaline Phosphatase 109 U/L (46-116); Anion Gap 12 (5-15); BUN/Creatinine Ratio 24.3 (10.0-20.0); Bilirubin, Total 1.1 mg/dL (0.2-1.0); Calcium 9.0 mg/dL (8.7-10.4); Carbon Dioxide 22 mmol/L (20-31); Chloride 100 mmol/L (98-107); Glucose 81 mg/dL (74-106); Potassium 4.5 mmol/L (3.5-5.1); Total Protein 5.9 g/dL (5.7-8.2)
[2025-03-01 07:06] LABS: Alanine Aminotransferase 292 U/L (7-40); Blood Urea Nitrogen 35 mg/dL (9-23); Sodium 134 mmol/L (136-145)
[2025-03-01 07:39] LABS: Lipase 22 U/L (12-53)
[2025-03-01 07:48] LABS: Lactic Acid w/Reflex 3.2 mmol/L (0.4-2.0)
--- NOTE | 2025-03-01 09:15 | DVH ---
EXAM: XY CHEST XRAY 1 VIEW Indication: SOB Technique: Single frontal view of the chest was obtained Comparison: XY CHEST PORTABLE on DOS: 02/25/25, XR CHEST 2 VIEW on DOS: 09/21/24, XY CHEST PORTABLE on DOS: 04/26/24, XY CHEST XRAY 1 VIEW on DOS: 09/09/23, CHEST XRAY 1 VIEW on DOS: 07/03/21 FINDINGS: Lines and Tubes: Cardiac pacemaker projects over left chest wall. Lungs: Multifocal consolidative opacities. Trace bilateral pleural effusions. No pneumothorax. Cardiomediastinal contours: Cardiomegaly. Bones: No acute osseous abnormality. IMPRESSION: Cardiomegaly with multifocal consolidative opacities and trace bilateral pleural effusions. Findings are worsened compared to prior exam.
--- NOTE | 2025-03-01 10:14 | DVHINCON2 ---
Date Seen: Mar 01, 2025 Referring Physician MD Zita Reason for Consultation "Patients superior court clerk and patient has an appointment tomorrow for echo". History of Present Illness This is a 64-year-old female patient who presents to the emergency room with chief complaint of abdominal pain for 2-3 weeks prior to emergency room arrival. Cardiology has been consulted at this time for unclear reasons. Initial twelve lead electrocardiogram found in patient's hard chart reveals sinus tachycardia with inferior Q-waves. No troponin levels drawn during this admission. The patient denies any chest pain, palpitations, or dizziness. She does report some shortness of breath, which she states is "normal" for her. Significant past medical history includes severe coronary artery disease, questionable stent placement, congestive heart failure, presence of AICD (Medtronic), previous myocardial infarction, hypertension, dyslipidemia, pulmonary hypertension, COPD, thyroid disease and longstanding substance abuse. The patient is a poor historian and is unsure if she has had previous coronary stent placement. The patient admits to recent methamphetamine use less than one week ago. The patient reports that she has been using methamphetamine for over 40 years. She follows up with superior court clerk in the outpatient setting. Of note, the patient underwent a coronary angiogram with left heart catheterization on 09/28/2024 which revealed severe coronary artery disease. It was at that time that medication management versus coronary bypass grafting was recommended. The patient states that she has opted for medical management and does not want to undergo a coronary bypass graft. Past Medical History Past medical history reviewed. No other significant than mentioned above. Past Surgical History Denies any previous surgeries Family History: Alzheimer's disease G8 MOTHER, Onset:50's - 60 Depression G8 MOTHER, Onset:40's - 50 Hypertension G8 MOTHER, Onset:40's - 50 Family History Family history reviewed. Social History Patient has a 50 pack-year history, currently smokes half a pack a day Patient has longstanding methamphetamine abuse (greater than 40 years) Denies any alcohol use Allergies: Coded Allergies: NO KNOWN ALLERGIES (Unverified , 09/23/24) Home Meds Active Scripts Pantoprazole Sodium Sesquihydr (Protonix) 40 Mg Tab, 40 MG PO BID for 30 Days, #60 TAB Prov:PING SANDERSON MD 02/28/25 Acetaminophen (Acetaminophen) 500 Mg Tab, 500 MG PO Q4HP PRN, #30 TAB Prov:AZIZA KOCH PAC 12/30/24 Dicyclomine Hcl (BENTYL CAPSULE) 10 Mg Cp, 1 CAP PO Q6HP PRN, #20 CAP 0 Refills Prov:AZIZA KOCH PAC 12/30/24 Reported Medications Levothyroxine Sodium (Levothyroxine Sodium) 50 Mcg Tab, 50 MCG PO QAM for 30 Days, MCG 02/26/25 Sacubitril-Valsartan (Entresto 24-26 mg) 1 Tab Tab, 1 TAB PO DAILY for HF, TAB 09/23/24 Potassium Chloride (Klor-Con 8) 8 Meq Tab, 8 MEQ PO DAILY for SUPPLEMENT, TAB 09/23/24 Sildenafil Citrate (SILDENAFIL CITRATE) 20 Mg Tab, 20 MG PO DAILY@0900 for PULMONARY HTN, TAB 04/29/24 Spironolactone (Spironolactone) 25 Mg Tab, 1 TAB PO DAILY for EDEMA/HTN 09/10/23 Clopidogrel Bisulfate (Plavix) 75 Mg Tab, 1 TAB PO DAILY for A.FIB 09/10/23 Aspirin (Aspirin Low Dose) 81 Mg Chw, 1 TAB PO DAILY for PREVENT BLOOD CLOTS 09/10/23 Furosemide (Furosemide) 40 Mg Tab, 1 TAB PO DAILY for EDEMA 09/10/23 Amiodarone Hcl (Amiodarone Hcl) 200 Mg Tab, 1 TAB PO DAILY for A.FIB 09/10/23 Home Meds Home medications reviewed. Current Medications Current Medications Medications (Trade) Dose Ordered Sig/Jose Luis Route PRN Reason Start Time Stop Time Status Last Admin Guaifenesin (Robitussin Plain Liquid) 200 mg Q4HP PRN PO FOR COUGH 02/28/25 15:00 02/28/25 15:53 Ipratropium [place] (Atrovent Medneb) 0.5 mg Q4HWA NEB 02/28/25 16:00 02/28/25 15:45 DC Albuterol (Ventolin Medneb) 2.5 mg Q4HWA NEB 02/28/25 16:00 02/28/25 15:45 DC Albuterol (Ventolin Medneb) 2.5 mg Q4HWA [facility] 02/28/25 18:00 03/01/25 09:51 Ipratropium [place] (Atrovent Medneb) 0.5 mg Q4HWA NEB 02/28/25 18:00 03/01/25 09:52 Albuterol (Ventolin Medneb) 2.5 mg Q2HPRN PRN NEB SHORTNESS OF BREATH 02/28/25 16:00 03/01/25 03:40 Ipratropium [place] (Atrovent Medneb) 0.5 mg Q2HPRN PRN NEB SHORTNESS OF BREATH 02/28/25 16:00 03/01/25 03:40 Sodium Chloride 1,000 ml @ 150 mls/hr Q6H40M IV 03/01/25 09:30 Review of Systems Constitutional: No symptom reported Ears, Nose, & Throat: No symptom reported Eyes: No symptom reported Neurological: No symptoms reported Pulmonary/Respiratory: No symptoms reported Cardiovascular: No symptom reported Gastrointestinal: Abdominal pain Genitourinary: No symptom reported Musculoskeletal: No symptom reported Skin: No symptom reported Psychiatric: No symptom reported Endocrine: No symptom reported Hematologic/Lymphatic: No symptom reported Vital Signs Vital Signs Date Time Temp Pulse Resp B/P (MAP) Pulse Ox O2 Delivery O2 Flow Rate FiO2 03/01/25 09:51 94 Oxymizer 8.0 03/01/25 09:51 104 20 03/01/25 09:51 64 64 03/01/25 09:00 97.3 113/83 (93) 97.3 Physical Exam General Appearance: Cooperative. Well-developed. Well-nourished. No acute distress. Pulmonary/Respiratory: Diminished bilateral lower lobes Cardiovascular/Chest: Regular rate and rhythm. Peripheral Pulses: 2+ Radial (R). 2+ Radial (L). 2+ Pedal (R). 2+ Pedal (L) Abdominal Exam: Normal bowel sounds. Ankle Exam: Negative ankle edema Lower extremities: Negative lower extremity edema Neuro/Mental Status: A/OX4, coherent. Thoughts/Psych: Normal thought pattern. Appropriate mood and affect. Good judgment and insight. Appearance: No acute distress. Skin Exam: Hyperpigmentation noted and generalized scabbing to all extremities. Skin warm and dry Labs/Diagnostic Data Labs Test 03/01/25 08:03 03/01/25 05:54 02/27/25 08:37 02/26/25 06:09 Range/Units Lactic Acid Level 4.1 *H 0.4-2.0 mmol/L White Blood Count 10.1 4.4-10.8 10^3/uL Red Blood Count 4.47 4.0-5.20 10^6/uL Hemoglobin 11.9 L 12.2-16.2 g/dL Hematocrit 37.0 36.0-46.0 % Mean Corpuscular Volume 82.7 80.0-100.0 fL Mean Corpuscular Hemoglobin 26.7 L 28.0-32.0 pg Mean Corpuscular Hemoglobin Concent 32.3 32.0-36.0 g/dL Red Cell Distribution Width 18.9 H 11.8-14.3 % Platelet Count 314 140-450 10^3/uL Mean Platelet Volume 7.6 6.9-10.8 fL Neutrophils (%) (Auto) 83.6 H 37.0-80.0 % Lymphocytes (%) (Auto) 7.4 L 10.0-50.0 % Monocytes (%) (Auto) 8.5 0.0-12.0 % Eosinophils (%) (Auto) 0.2 0.0-7.0 % Basophils (%) (Auto) 0.3 0.0-2.0 % Neutrophils # (Auto) 8.4 1.6-8.6 10 ^3/uL Lymphocytes # (Auto) 0.7 0.4-5.4 10 ^3/uL Monocytes # (Auto) 0.9 0-1.3 10 ^3/uL Eosinophils # (Auto) 0 0-0.8 10 ^3/uL Basophils # (Auto) 0 0-0.2 10 ^3/uL Nucleated Red Blood Cells 0.2 % Sodium Level 134 L 136-145 mmol/L Potassium Level 4.5 3.5-5.1 mmol/L Chloride Level 100 98-107 mmol/L Carbon Dioxide Level 22 20-31 mmol/L Anion Gap 12 5-15 Blood Urea Nitrogen 35 #H 9-23 mg/dL Creatinine 1.44 H 0.550-1.02 mg/dL Glomerular Filtration Rate Calc 40 >90 mL/min BUN/Creatinine Ratio 24.3 H 10.0-20.0 Serum Glucose 81 74-106 mg/dL Hemoglobin A1c 5.6 <5.7 % A1C Calcium Level 9.0 8.7-10.4 mg/dL Total Bilirubin 1.1 H 0.2-1.0 mg/dL Aspartate Amino Transferase (AST) 760 H 13-40 U/L Alanine Aminotransferase (ALT) 292 H 7-40 U/L Alkaline Phosphatase 109 46-116 U/L Ammonia 18 11-32 umol/L C-Reactive Protein High Sensitivity 16.68 H <1.0 mg/dL Total Protein 5.9 5.7-8.2 g/dL Albumin 3.2 3.2-4.8 g/dL Lipase 22 12-53 U/L Thyroid Stimulating Hormone (TSH) 8.56 H 0.55-4.78 uIU/mL Prothrombin Time 11.9 H 9.3-11.8 sec Prothrombin Time INR 1.14 0.9-1.15 Activated Partial Thromboplast Time 26.0 24.5-34.5 SEC Iron Level 36 L 50-170 ug/dL Total Iron Binding Capacity 291 250-425 ug/dL Percent Iron Saturation 12.4 L 15-50 % Ferritin 45.5 10-291 ng/mL Vitamin B12 Level 484 211-911 pg/mL Test 02/25/25 23:50 Range/Units Urine Color Colorless Yellow Urine Clarity Clear Clear Urine pH 6.0 5.0-9.0 Urine Specific [place] 1.005 1.001-1.035 Urine Protein Negative Negative Urine Ketones Negative Negative Urine Blood Negative Negative /uL Urine Nitrite Negative Negative Urine Bilirubin Negative Negative Urine Urobilinogen Normal Negative mg/dL Urine Leukocyte Esterase Negative Negative /uL Urine RBC <1 0 - 4 /hpf Urine Microscopic WBC 2 0-5 /HPF Urine Squamous Epithelial Cells Few <5 /hpf Urine Bacteria None seen None Seen /hpf Urine Glucose Normal Normal mg/dL Urine Opiates Screen Neg NEGATIVE Urine Fentanyl Screen Neg NEGATIVE Urine Barbiturates Screen Neg NEGATIVE Urine Phencyclidine Screen Neg NEGATIVE Urine Amphetamines Screen Pos NEGATIVE Urine Benzodiazepines Screen Neg NEGATIVE Urine Cocaine Screen Neg NEGATIVE Urine Cannabinoids Screen Neg NEGATIVE Microbiology Date/Time Source Procedure Growth Status 02/26/25 03:43 Nose MRSA Screen - Final Complete 02/25/25 19:09 Blood Blood Culture - Preliminary NO GROWTH AFTER 72 HOURS OF INCUBATION. Resulted Assessment Chronic HFrEF, NYHA class III Severe coronary artery disease with questionable stent placement Ischemic cardiomyopathy Presence of ICD (Medtronic) History myocardial infarction Hypertension Dyslipidemia Acute hypoxic respiratory failure secondary to pneumonia Sepsis Pulmonary hypertension COPD Transaminitis Thyroid disease Methamphetamine abuse Tobacco use Medical noncompliance Plan/Recommendation We will continue with the following plan/recommendations (Dr. Gibbs): * Transthoracic echocardiogram to evaluate cardiac function * Previous transthoracic echocardiogram from 04/27/2024 reveals an EF of 30- 35% * Continue with guideline directed medical therapy for CHF as tolerated by blood pressure and kidney function * Add MRA (spironolactone) with improved kidney function * Strict intake and output, daily weights, maintain fluid restriction and low- sodium diet * Antiplatelet therapy * Resume lipid-lowering agent with improved liver enzymes * Close cardiac surveillance * Obtain rapid influenza a and B and COVID testing * Antibiotics per primary care team Thank you for allowing us to care for this patient. Please call with any questions or concerns. Critical care time spent: 44 minutes This medical document was created using an electronic medical record system with voice recognition software and computerized dictation system. Although this document has been carefully reviewed, there might still be some phonetic and typographical errors. Occasional wrong-word or ``sound-alike substitutions may have occurred due to the inherent limitations of voice recognition software. These areas are purely typographical due to imperfections of the software programs and do not reflect any compromise in the patient's medical care. Please read the chart carefully and recognize, using context, where these substitutions have occurred. Plan discussed with: Patient NYHA Physical activity limitations: Class3(Marked) ordinary (activity causes symtoms) Date of Service: Mar 01, 2025 Billing Provider: ADELSO HALL Cardiology Common Codes: [id number] INP/OBS CARE (High) Cardiology Consultation Codes: [id number] CONSULT <45MIN ADELSO HALL Mar 01, 2025 10:14
[2025-03-01 10:16] LABS: Magnesium 2.0 mg/dL (1.6-2.6); Triglycerides 102.0 mg/dL (< 150)
[2025-03-01 10:18] LABS: Cholesterol 133.0 mg/dL (< 200)
[2025-03-01 10:19] LABS: HDL Cholesterol 27.0 mg/dL (40-59)
[2025-03-01 10:41] LABS: Lactic Acid w/Reflex 3.8 mmol/L (0.4-2.0)
[2025-03-01] MEDS: SODIUM CHLORIDE 0.9% 1,000 ML IV SCH (11:35)
[2025-03-01 14:12] LABS: Free T3 1.97 pg/mL (2.3-4.2); Free T4 (Free Thyroxine) 1.07 ng/dL (0.89-1.76)
--- NOTE | 2025-03-01 14:38 | DVH ---
EXAM: CT HEAD WITHOUT CONTRAST INDICATION: s/p fall, hit side of head, pain and swelling. TECHNIQUE: CT of the head without intravenous contrast. Radiation Dose Information: CT Dose: CTDI volume is 53.04 mGy. Dose-length product is 1151.42 mGy*cm The dose indicators for CT are the volume Computed Tomography (CT) Dose Index (CTDIvol) and the Dose Length Product (DLP), and are measured in units of mGy and mGy-cm, respectively. These indicators are not patient dose, but values generated from the CT scanner acquisition factors. The report includes radiation exposure data for exposures received during this examination. COMPARISON: None FINDINGS: There is no evidence of acute intracranial hemorrhage, extra-axial collection, mass effect, midline s hift, herniation or hydrocephalus. The ventricles, sulci and cisterns are age appropriate. Remote infarcts within the occipial lobe and left/right occipital region. Patchy periventricular and subcortical white matter hypoattenuation is nonspecific but may be related to small vessel ischemic disease. The visualized paranasal sinuses and mastoid air cells are clear. The surrounding soft tissues and osseous structures are unremarkable. IMPRESSION: No acute intracranial abnormality.
--- NOTE | 2025-03-01 15:09 | DVH ---
CLINICAL INFORMATION: Abdominal pain. Gallstones. TECHNIQUE: 6.5 mCi of Choletec were administered intravenously. Images of the upper abdomen were ob tained at 1 multiple intervals up to a total time of 40 minutes. Delayed images were obtained at 4 ho urs. COMPARISON: None FINDINGS: There is prompt gallbladder visualization. The small bowel is not visualized on images obt ained up to 40 minutes. There is visualization of small bowel on the delayed images at 4 hours. IMPRESSION: 1. No scintigraphic evidence of acute cholecystitis. 2. Small bowel is not visualized on initial images obtained up to 40 minutes, but is seen at the nicolette yed images. Possible functional gallbladder disorder. Correlate with clinical findings.
--- NOTE | 2025-03-01 17:01 | DVHPN2 ---
Subjective Overnight events noted. Patient is getting HIDA scan. 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 Medications Current Medications Medications Dose Ordered Sig/Jose Luis Route Start Time Stop Time Status Last Admin Dose Admin Azithromycin 250 ml @ 125 mls/hr DAILY IV 02/26/25 10:00 03/01/25 11:36 125 MLS/HR Ceftriaxone Sodium 50 ml @ 100 mls/hr DAILY IV 02/26/25 10:00 03/01/25 11:01 100 MLS/HR Ondansetron HCl 4 mg Q6HP PRN IV 02/25/25 23:00 02/27/25 17:24 4 MG Morphine Sulfate 2 mg Q6HP PRN IV 02/25/25 23:00 02/26/25 02:50 2 MG Pantoprazole Sodium 40 mg DAILY IV 02/26/25 10:00 03/01/25 11:35 40 MG Acetaminophen/ Hydrocodone Bitart 1 tab Q6HPRN PRN PO 02/25/25 23:00 02/28/25 15:54 1 TAB Acetaminophen 650 mg Q6HPRN PRN PO 02/25/25 23:00 02/26/25 02:51 650 MG Lorazepam 1 mg Q6HP PRN PO 02/27/25 16:10 03/01/25 11:39 1 MG Guaifenesin 200 mg Q4HP PRN PO 02/28/25 15:00 02/28/25 15:53 200 MG Albuterol 2.5 mg Q4HWA NEB 02/28/25 18:00 03/01/25 14:07 2.5 MG Ipratropium [place] 0.5 mg Q4HWA NEB 02/28/25 18:00 03/01/25 14:07 0.5 MG Albuterol 2.5 mg Q2HPRN PRN NEB 02/28/25 16:00 03/01/25 03:40 2.5 MG Ipratropium [place] 0.5 mg Q2HPRN PRN NEB 02/28/25 16:00 03/01/25 03:40 0.5 MG Aspirin 81 mg DAILY PO 03/02/25 10:00 Empaglifozin 10 mg DAILY PO 03/02/25 10:00 Sacubitril/ Valsartan 1 tab BID PO 03/01/25 22:00 Metoprolol Succinate 25 mg DAILY PO 03/02/25 10:00 Furosemide 40 mg BIDD IV 03/01/25 18:00 Laboratory Results Laboratory Tests 03/01/25 05:54 Chemistry Test 03/01/25 05:54 Albumin 3.2 g/dL (3.2-4.8) Calcium Level 9.0 mg/dL (8.7-10.4) Magnesium Level 2.0 mg/dL (1.6-2.6) Total Protein 5.9 g/dL (5.7-8.2) Lipid panel Test 03/01/25 05:54 Cholesterol Level 133 mg/dL (< 200) HDL Cholesterol 27 mg/dL (40-59) L Lipase 22 U/L (12-53) Triglycerides Level 102 mg/dL (< 150) Cardiac Markers Test 03/01/25 05:54 B-Type Natriuretic Peptide 853.21 pg/mL (0-100) LFT Test 03/01/25 05:54 Alanine Aminotransferase (ALT) 292 U/L (7-40) H Alkaline Phosphatase 109 U/L (46-116) Aspartate Amino Transferase (AST) 760 U/L (13-40) H Total Bilirubin 1.1 mg/dL (0.2-1.0) H HgA1c, TSH Test 03/01/25 05:54 Hemoglobin A1c 5.6 % A1C (<5.7) Thyroid Stimulating Hormone (TSH) 8.56 uIU/mL (0.55-4.78) H Urinalysis Test 02/25/25 23:50 Urine Color Colorless (Yellow) Urine Clarity Clear (Clear) Urine pH 6.0 (5.0-9.0) Urine Specific [place] 1.005 (1.001-1.035) Urine Protein Negative (Negative) Urine Ketones Negative (Negative) Urine Blood Negative /uL (Negative) Urine Nitrite Negative (Negative) Urine Bilirubin Negative (Negative) Urine Urobilinogen Normal mg/dL (Negative) Urine Leukocyte Esterase Negative /uL (Negative) Urine RBC <1 /hpf (0 - 4) Urine Microscopic WBC 2 /HPF (0-5) Urine Squamous Epithelial Cells Few /hpf (<5) Urine Bacteria None seen /hpf (None Seen) Urine Glucose Normal mg/dL (Normal) Microbiology Microbiology Date/Time Source Procedure Growth Status 02/26/25 03:43 Nose MRSA Screen - Final Complete 02/25/25 19:09 Blood Blood Culture - Preliminary NO GROWTH AFTER 72 HOURS OF INCUBATION. Resulted Assessment/Plan Assessment/Plan This is a 64 yo female with known history of pulmonary hypertension , ischemic cardiomyopathy, CAD s/p PCI, COPD, amphetamine abuse who presents to the hospital with abdominal pain , patient was found to have 64-year-old female with a known history of pulmonary hypertension, ischemic cardiomyopathy, CAD status post PCI, COPD, chronic meth use presented to the hospital with the abdominal pain patient was found to have 1. Cholelithiasis ruled out acute cholecystitis by negative HIDA scan 2. Abdominal pain, resolved 3. Suspected pneumonia, on IV antibiotic 4. Acute on chronic congestive heart failure exacerbation with systolic dysfunction 5. Relative hypotension 5. Chronic meth use 6. COPD -continue Lasix, Aldactone, beta-wanda, cardiology follow up -HIDA scan is negative for any acute cholecystitis -social service consultation for drug cessation counseling Plan discussed with: Patient My Orders Orders - PING SANDERSON MD Procedure Category Date Status Time Furosemide Injection PHA 03/01/25 In Process (Lasix Injection) 18:00 Date of Service: Mar 01, 2025 Billing Provider: PING SANDERSON MD Common Visit Codes: NOT BILLABLE PING SANDERSON MD Mar 01, 2025 17:01
[2025-03-01 17:37] LABS: COVID19 ANTIGEN SOFIA FIA NEGATIVE (NEGATIVE)
[2025-03-01] MEDS: FUROSEMIDE 40 MG/4 ML VIAL IV SCH (18:35)
--- NOTE | 2025-03-01 21:07 | DVHPN2 ---
Progress Note - Dictate Date Seen: Mar 01, 2025 Medical Necessity Reason Pt with a Central, PICC or Fol: No Subjective Patient was seen at bedside this evening at 4:00 p.m. ; on supplemental oxygen and sleeping Patient was not feeling well complaining of shortness of breath and cough She also had mild diffuse abdominal pain and other chronic pain syndrome One bowel movement was recorded yesterday and there was no bleeding vital signs Vital Sign Date Time Temp Pulse Resp B/P (MAP) Pulse Ox O2 Delivery O2 Flow Rate FiO2 03/01/25 19:29 106 20 97 03/01/25 19:21 Oxymizer 8 64 64 03/01/25 18:35 120/90 03/01/25 17:00 97.3 97.3 Total Intake and Output 02/28/25 02/28/25 03/01/25 15:00 23:00 07:00 Intake Total 300 ml 750 ml 20 ml Balance 300 ml 750 ml 20 ml medications Current Medications Medications Dose Ordered Sig/Jose Luis Route Start Time Stop Time Status Last Admin Dose Admin Azithromycin 250 ml @ 125 mls/hr DAILY IV 02/26/25 10:00 03/01/25 11:36 125 MLS/HR Ceftriaxone Sodium 50 ml @ 100 mls/hr DAILY IV 02/26/25 10:00 03/01/25 11:01 100 MLS/HR Ondansetron HCl 4 mg Q6HP PRN IV 02/25/25 23:00 02/27/25 17:24 4 MG Morphine Sulfate 2 mg Q6HP PRN IV 02/25/25 23:00 02/26/25 02:50 2 MG Pantoprazole Sodium 40 mg DAILY IV 02/26/25 10:00 03/01/25 11:35 40 MG Acetaminophen/ Hydrocodone Bitart 1 tab Q6HPRN PRN PO 02/25/25 23:00 03/01/25 18:31 1 TAB Acetaminophen 650 mg Q6HPRN PRN PO 02/25/25 23:00 02/26/25 02:51 650 MG Lorazepam 1 mg Q6HP PRN PO 02/27/25 16:10 03/01/25 11:39 1 MG Guaifenesin 200 mg Q4HP PRN PO 02/28/25 15:00 03/01/25 18:30 200 MG Albuterol 2.5 mg Q4HWA NEB 02/28/25 18:00 03/01/25 19:21 2.5 MG Ipratropium [place] 0.5 mg Q4HWA NEB 02/28/25 18:00 03/01/25 19:21 0.5 MG Albuterol 2.5 mg Q2HPRN PRN NEB 02/28/25 16:00 03/01/25 03:40 2.5 MG Ipratropium [place] 0.5 mg Q2HPRN PRN NEB 02/28/25 16:00 03/01/25 03:40 0.5 MG Aspirin 81 mg DAILY PO 03/02/25 10:00 Empaglifozin 10 mg DAILY PO 03/02/25 10:00 Sacubitril/ Valsartan 1 tab BID PO 03/01/25 22:00 Metoprolol Succinate 25 mg DAILY PO 03/02/25 10:00 Furosemide 40 mg BIDD IV 03/01/25 18:00 03/01/25 18:35 40 MG objective HEENT pupils are reactive Neck is supple CV is S1-S2 regular rate and rhythm Respiratory diminished breath sounds bases GI positive bowel sound Extremity no 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 No scintigraphic evidence of acute cholecystitis. 2. Small bowel is not visualized on initial images obtained up to 40 minutes, but is seen at the delayed images. Possible functional gallbladder disorder. Correlate with clinical findings. CXR IMPRESSION: Cardiomegaly with multifocal consolidative opacities and trace bilateral pleural effusions. Findings are worsened compared to prior exam. HEAD CT : Negative Problems(with codes): (1) Abdominal pain (2) Acute pancreatitis (3) Intractable abdominal pain (4) Lactic acid acidosis (5) Pneumonia (6) Cholelithiasis (7) CHF (congestive heart failure) (8) Elevated troponin (9) Hiatal hernia (10) Amphetamine abuse Prognosis Plan Patient was seen by cardiology consult and is awaiting a echocardiogram Patient is on guideline directed medical therapy for CHF and spironolactone was added Patient is on antiplatelet therapy Influenza a and B and COVID were negative Suspected small bowel thickening is likely related to colonic wall and intestinal wall edema from fluid overload Supportive care from GI point of view, advance diet as tolerated, patient on IV antibiotics Plan discussed with: Patient, Other (Nurse) TRACY FORD MD Mar 01, 2025 21:07
[2025-03-01] MEDS: SACUBITRIL-VALSARTAN 24mg/26mg TAB PO SCH (22:13)
[2025-03-02] VITALS (19 sets, daily range): BP systolic 75–103; BP diastolic 47–78; PULSE 97–109; RESP 18–21; TEMP 97.3–97.8; O2SAT 92–100
[2025-03-02] MEDS: EMPAGLIFLOZIN 10 MG TAB PO SCH (10:28)
[2025-03-02] MEDS: METOPROLOL SUCCINATE XL 50 MG TAB PO SCH (10:28)
--- NOTE | 2025-03-02 11:54 | DVHPN2 ---
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 Patient now on 4 L Oxymizer Objective vital signs Vital Sign Date Time Temp Pulse Resp B/P (MAP) Pulse Ox O2 Delivery O2 Flow Rate FiO2 03/02/25 11:05 97 20 100 03/02/25 10:59 Nasal Cannula 4.0 03/02/25 10:59 36 03/02/25 10:28 99/68 03/02/25 05:00 97.8 97.8 Total Intake and Output 03/01/25 03/01/25 03/02/25 15:00 23:00 07:00 Intake Total 300 ml 274 ml 250 ml Balance 300 ml 274 ml 250 ml medications Current Medications Medications Dose Ordered Sig/Jose Luis Route Start Time Stop Time Status Last Admin Dose Admin Azithromycin 250 ml @ 125 mls/hr DAILY IV 02/26/25 10:00 03/01/25 11:36 125 MLS/HR Ceftriaxone Sodium 50 ml @ 100 mls/hr DAILY IV 02/26/25 10:00 03/02/25 10:22 100 MLS/HR Ondansetron HCl 4 mg Q6HP PRN IV 02/25/25 23:00 02/27/25 17:24 4 MG Morphine Sulfate 2 mg Q6HP PRN IV 02/25/25 23:00 02/26/25 02:50 2 MG Pantoprazole Sodium 40 mg DAILY IV 02/26/25 10:00 03/02/25 10:22 40 MG Acetaminophen/ Hydrocodone Bitart 1 tab Q6HPRN PRN PO 02/25/25 23:00 03/01/25 18:31 1 TAB Acetaminophen 650 mg Q6HPRN PRN PO 02/25/25 23:00 02/26/25 02:51 650 MG Lorazepam 1 mg Q6HP PRN PO 02/27/25 16:10 03/01/25 11:39 1 MG Guaifenesin 200 mg Q4HP PRN PO 02/28/25 15:00 03/02/25 06:31 200 MG Albuterol 2.5 mg Q4HWA NEB 02/28/25 18:00 03/01/25 22:40 2.5 MG Ipratropium [place] 0.5 mg Q4HWA NEB 02/28/25 18:00 03/02/25 10:59 0.5 MG Albuterol 2.5 mg Q2HPRN PRN NEB 02/28/25 16:00 03/01/25 03:40 2.5 MG Ipratropium [place] 0.5 mg Q2HPRN PRN NEB 02/28/25 16:00 03/01/25 03:40 0.5 MG Aspirin 81 mg DAILY PO 03/02/25 10:00 03/02/25 10:28 81 MG Empaglifozin 10 mg DAILY PO 03/02/25 10:00 03/02/25 10:28 10 MG Sacubitril/ Valsartan 1 tab BID PO 03/01/25 22:00 03/02/25 10:26 1 TAB Metoprolol Succinate 25 mg DAILY PO 03/02/25 10:00 03/02/25 10:28 25 MG Furosemide 40 mg BIDD IV 03/01/25 18:00 03/02/25 06:25 40 MG Examination: GENERAL:Normal, LUNGS:Normal, CVS:Normal, NEURO:Normal laboratory and microbiology Laboratory Tests 03/01/25 05:54 Test 03/01/25 05:54 Range/Units Serum Glucose 81 74-106 mg/dL Problem List/Assessment/Plan Problem List/Assessment/Plan Chronic HFrEF, NYHA class III Apical thrombus Severe coronary artery disease with questionable stent placement Ischemic cardiomyopathy Presence of ICD (Medtronic) History myocardial infarction Hypertension Dyslipidemia Acute hypoxic respiratory failure secondary to pneumonia Sepsis Pulmonary hypertension, severe degree COPD Transaminitis Thyroid disease Methamphetamine abuse Tobacco use Medical noncompliance Plan/Recommendations (Dr. Gibbs): * Transthoracic echocardiogram reveals EF 15-20% with apical thrombus. * Initiate therapeutic Lovenox, transition to DOAC with Eliquis prior to discharge * Continue with guideline directed medical therapy for CHF as tolerated by blood pressure and kidney function * Add MRA (spironolactone) with improved kidney function * Strict intake and output, daily weights, maintain fluid restriction and low- sodium diet * Antiplatelet therapy * Resume lipid-lowering agent with improved liver enzymes * Close cardiac surveillance * Antibiotics per primary care team Case discussed with . Transthoracic echocardiogram revealed an apical thrombus. Per guideline recommendations, Coumadin therapy is recommended. Given patient medical noncompliance and chronic meth use, doubt patient will be compliant with Coumadin Clinic. We will recommend off-label use of NOAC therapy Eliquis. Thank you for allowing us to care for this patient. Please call with any questions or concerns. This medical document was created using an electronic medical record system with voice recognition software and computerized dictation system. Although this document has been carefully reviewed, there might still be some phonetic and typographical errors. Occasional wrong-word or ``sound-alike substitutions may have occurred due to the inherent limitations of voice recognition software. These areas are purely typographical due to imperfections of the software programs and do not reflect any compromise in the patient's medical care. Please read the chart carefully and recognize, using context, where these substitutions have occurred. Plan discussed with: Patient Date of Service: Mar 02, 2025 Billing Provider: ADELSO HALL Common Visit Codes: [id number] INP/OBS CARE(HIGH) ADELSO HALL Mar 02, 2025 11:54
[2025-03-02 13:59] LABS: Hematocrit 42.5 % (36.0-46.0); Hemoglobin 13.2 g/dL (12.2-16.2); Mean Corpuscular Hemoglobin 26.3 pg (28.0-32.0); Mean Corpuscular Volume 84.3 fL (80.0-100.0); Nucleated Red Blood Cells % 0.4 %
[2025-03-02 14:08] LABS: Chloride 99 mmol/L (98-107); Potassium 4.2 mmol/L (3.5-5.1)
[2025-03-02 14:09] LABS: Anion Gap 14 (5-15)
[2025-03-02 14:14] LABS: BUN/Creatinine Ratio 23.2 (10.0-20.0)
[2025-03-02 14:16] LABS: Blood Urea Nitrogen 32 mg/dL (9-23); Carbon Dioxide 19 mmol/L (20-31); Glucose 110 mg/dL (74-106); Sodium 132 mmol/L (136-145)
[2025-03-02 14:17] LABS: Calcium 8.4 mg/dL (8.7-10.4)
[2025-03-02] MEDS: FUROSEMIDE 20 MG/2 ML VIAL IV ONE (14:30)
[2025-03-02 14:39] LABS: Alanine Aminotransferase 407 U/L (7-40)
[2025-03-02 16:00] LABS: Base Excess -5.1 mmol/L (-2.0-3.0)
--- NOTE | 2025-03-02 17:05 | DVHPN2 ---
Subjective Overnight events noted. Patient's daughter at bedside. 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 Medications Current Medications Medications Dose Ordered Sig/Jose Luis Route Start Time Stop Time Status Last Admin Dose Admin Azithromycin 250 ml @ 125 mls/hr DAILY IV 02/26/25 10:00 03/02/25 14:00 125 MLS/HR Ceftriaxone Sodium 50 ml @ 100 mls/hr DAILY IV 02/26/25 10:00 03/02/25 10:22 100 MLS/HR Ondansetron HCl 4 mg Q6HP PRN IV 02/25/25 23:00 02/27/25 17:24 4 MG Morphine Sulfate 2 mg Q6HP PRN IV 02/25/25 23:00 02/26/25 02:50 2 MG Pantoprazole Sodium 40 mg DAILY IV 02/26/25 10:00 03/02/25 10:22 40 MG Acetaminophen/ Hydrocodone Bitart 1 tab Q6HPRN PRN PO 02/25/25 23:00 03/01/25 18:31 1 TAB Acetaminophen 650 mg Q6HPRN PRN PO 02/25/25 23:00 02/26/25 02:51 650 MG Lorazepam 1 mg Q6HP PRN PO 02/27/25 16:10 03/01/25 11:39 1 MG Guaifenesin 200 mg Q4HP PRN PO 02/28/25 15:00 03/02/25 06:31 200 MG Albuterol 2.5 mg Q4HWA NEB 02/28/25 18:00 03/02/25 14:28 2.5 MG Ipratropium [place] 0.5 mg Q4HWA NEB 02/28/25 18:00 03/02/25 14:28 0.5 MG Albuterol 2.5 mg Q2HPRN PRN NEB 02/28/25 16:00 03/01/25 03:40 2.5 MG Ipratropium [place] 0.5 mg Q2HPRN PRN NEB 02/28/25 16:00 03/01/25 03:40 0.5 MG Aspirin 81 mg DAILY PO 03/02/25 10:00 03/02/25 10:28 81 MG Empaglifozin 10 mg DAILY PO 03/02/25 10:00 03/02/25 10:28 10 MG Metoprolol Succinate 25 mg DAILY PO 03/02/25 10:00 03/02/25 10:28 25 MG Furosemide 40 mg BIDD IV 03/01/25 18:00 03/02/25 06:25 40 MG Sacubitril/ Valsartan 0.5 tab BID PO 03/02/25 22:00 Laboratory Results Laboratory Tests 03/02/25 13:30 Chemistry Test 03/02/25 13:30 Calcium Level 8.4 mg/dL (8.7-10.4) L LFT Test 03/02/25 13:30 Alanine Aminotransferase (ALT) 407 U/L (7-40) H Aspartate Amino Transferase (AST) 590 U/L (13-40) H Urinalysis Test 02/25/25 23:50 Urine Color Colorless (Yellow) Urine Clarity Clear (Clear) Urine pH 6.0 (5.0-9.0) Urine Specific [place] 1.005 (1.001-1.035) Urine Protein Negative (Negative) Urine Ketones Negative (Negative) Urine Blood Negative /uL (Negative) Urine Nitrite Negative (Negative) Urine Bilirubin Negative (Negative) Urine Urobilinogen Normal mg/dL (Negative) Urine Leukocyte Esterase Negative /uL (Negative) Urine RBC <1 /hpf (0 - 4) Urine Microscopic WBC 2 /HPF (0-5) Urine Squamous Epithelial Cells Few /hpf (<5) Urine Bacteria None seen /hpf (None Seen) Urine Glucose Normal mg/dL (Normal) Blood Gas Results Test 03/02/25 15:45 Arterial Blood pH 7.420 (7.350-7.450) FiO2 % 46.0 Microbiology Microbiology Date/Time Source Procedure Growth Status 02/26/25 03:43 Nose MRSA Screen - Final Complete 02/25/25 19:09 Blood Blood Culture - Preliminary NO GROWTH AFTER 72 HOURS OF INCUBATION. Resulted Assessment/Plan Assessment/Plan This is a 64 yo female with known history of pulmonary hypertension , ischemic cardiomyopathy, CAD s/p PCI, COPD, amphetamine abuse who presents to the hospital with abdominal pain , patient was found to have 64-year-old female with a known history of pulmonary hypertension, ischemic cardiomyopathy, CAD status post PCI, COPD, chronic meth use presented to the hospital with the abdominal pain patient was found to have 1. Cholelithiasis ruled out acute cholecystitis by negative HIDA scan 2. Abdominal pain, resolved 3. Suspected pneumonia, on IV antibiotic 4. Acute on chronic congestive heart failure exacerbation with systolic dysfunction 5. Relative hypotension 5. Chronic meth use 6. COPD -continue Lasix, Aldactone, beta-wanda, cardiology follow up -HIDA scan is negative for any acute cholecystitis -social service consultation for drug cessation counseling Plan discussed with: Patient My Orders Orders - PING SANDERSON MD Procedure Category Date Status Time Lactic Acid W/ Reflex LAB 03/02/25 Logged Order 13:51 Chest Xray 1 View XY 03/03/25 Logged 10:00 Abg W/ Co-Ox RT 03/02/25 Logged 15:32 Date of Service: Mar 02, 2025 Billing Provider: PING SANDERSON MD Common Visit Codes: [id number] INP/OBS CARE(MOD), NOT BILLABLE PING SANDERSON MD Mar 02, 2025 17:05
--- NOTE | 2025-03-02 17:13 | DVHSR ---
APPROVED REPORT EXAM: Two-dimensional and M-mode echocardiogram with Doppler, color Doppler and Optison. Blood Pressure: 129/95 mmHg INDICATION Previously scheduled exam Contrast Details Indication: Rule out thrombus Surgery/Intervention Pacemaker: RISK FACTORS Height: 4'11", Weight: 114 DIMENSIONS LVDd (3.8-5.7cm)LA (2D)4.3 (1.9-4.0cm)Aortic Root (2.0-3.7cm) EF (%) 10.0 (55-70%)Rt. Atrium5.0 (1.9-4.0cm)Asc. Aorta cm Mitral Valve MitralMitral Stenosis E wave1.12m/sMV Mean GR.mmHg E/A ratio0.02D MVAcm2 Aortic Valve Aortic ValveAortic Stenosis V10.75m/Mary [place] Mean GR.4mmHg V21.44m/[place] Peak GR.8mmHg LVOT Diameter1.8 (1.8-2.4cm)Doppler AVA1.32cm2 Tricuspid Valve TR Velocity3.57m/s [id number] Other Information Quality : Technically LimitedRhythm : Technically limited study due to body habitus, patient has wound on chest. Conclusion Technically difficult study. Limited chamber views. Undetermined rhythm. Biatrial enlargement. Biventricular enlargement. From the limited views obtained the valves appear to be structurally normal. Left ventricular systolic function is markedly diminished. EF is approximately 15-20%. Right ventri cular function is diminished. There appears to be an apical thrombus. It is slightly pedunculated. Is suggest a high risk of embo lization. [id number] TR. Mild MR. Notable pulmonary hypertension based on elevated pulmonary pressures. Right ventricular systolic pressure of No pericardial effusion. Apical thrombus as noted.
[2025-03-02 17:43] LABS: Lactic Acid w/Reflex 2.7 mmol/L (0.4-2.0)
--- NOTE | 2025-03-02 18:45 | DVH ---
CLINICAL HISTORY: r/o DVT TECHNIQUE: Color and duplex doppler imagine of the bilateral lower extremity veins was performed. Ves kelvin compression and augmentation if possible was also performed. COMPARISON: None FINDINGS: Right Lower Extremity: Right common femoral vein: Normal compressibility and flow. Right superficial femoral vein: Normal compressibility and flow. Right popliteal vein: Normal compressibility and flow. Proximal calf veins demonstrate flow. Left Lower Extremity: Left common femoral vein: Normal compressibility and flow. Left superficial femoral vein: Normal compressibility and flow. Left popliteal vein: Normal compressibility and flow. Proximal calf veins demonstrate flow. IMPRESSION: NO SONOGRAPHIC EVIDENCE FOR DEEP VENOUS THROMBOSIS IN THE BILATERAL LOWER EXTREMITY VEINS.
[2025-03-02] MEDS: SACUBITRIL-VALSARTAN 24mg/26mg TAB PO SCH (21:38)
[2025-03-02] MEDS: ENOXAPARIN SOD 60 MG/0.6 ML SYRINGE SC SCH (21:46)
--- NOTE | 2025-03-02 22:43 | DVHPN2 ---
Progress Note - Dictate Date Seen: Mar 04, 2025 Medical Necessity Reason Pt with a Central, PICC or Fol: No Subjective Patient was seen at bedside this evening at 4:00 p.m. ; on supplemental oxygen and sleeping Patient was not feeling well complaining of shortness of breath and cough She also had mild diffuse abdominal pain and other chronic pain syndrome One bowel movement was recorded yesterday and there was no bleeding vital signs Vital Sign Date Time Temp Pulse Resp B/P (MAP) Pulse Ox O2 Delivery O2 Flow Rate FiO2 03/02/25 22:09 101 18 100 03/02/25 21:00 97.4 91/56 (68) 97.4 03/02/25 19:47 Oxymizer 5 N/A Total Intake and Output 03/01/25 03/01/25 03/02/25 15:00 23:00 07:00 Intake Total 300 ml 274 ml 250 ml Balance 300 ml 274 ml 250 ml medications Current Medications Medications Dose Ordered Sig/Jose Luis Route Start Time Stop Time Status Last Admin Dose Admin Azithromycin 250 ml @ 125 mls/hr DAILY IV 02/26/25 10:00 03/02/25 14:00 125 MLS/HR Ceftriaxone Sodium 50 ml @ 100 mls/hr DAILY IV 02/26/25 10:00 03/02/25 10:22 100 MLS/HR Ondansetron HCl 4 mg Q6HP PRN IV 02/25/25 23:00 02/27/25 17:24 4 MG Morphine Sulfate 2 mg Q6HP PRN IV 02/25/25 23:00 02/26/25 02:50 2 MG Pantoprazole Sodium 40 mg DAILY IV 02/26/25 10:00 03/02/25 10:22 40 MG Acetaminophen/ Hydrocodone Bitart 1 tab Q6HPRN PRN PO 02/25/25 23:00 03/01/25 18:31 1 TAB Acetaminophen 650 mg Q6HPRN PRN PO 02/25/25 23:00 02/26/25 02:51 650 MG Lorazepam 1 mg Q6HP PRN PO 02/27/25 16:10 03/01/25 11:39 1 MG Guaifenesin 200 mg Q4HP PRN PO 02/28/25 15:00 03/02/25 06:31 200 MG Albuterol 2.5 mg Q4HWA NEB 02/28/25 18:00 03/02/25 22:09 2.5 MG Ipratropium [place] 0.5 mg Q4HWA [facility] 02/28/25 18:00 03/02/25 22:09 0.5 MG Albuterol 2.5 mg Q2HPRN PRN [facility] 02/28/25 16:00 03/01/25 03:40 2.5 MG Ipratropium [place] 0.5 mg Q2HPRN PRN [facility] 02/28/25 16:00 03/01/25 03:40 0.5 MG Aspirin 81 mg DAILY PO 03/02/25 10:00 03/02/25 10:28 81 MG Empaglifozin 10 mg DAILY PO 03/02/25 10:00 03/02/25 10:28 10 MG Metoprolol Succinate 25 mg DAILY PO 03/02/25 10:00 03/02/25 10:28 25 MG Furosemide 40 mg BIDD IV 03/01/25 18:00 03/02/25 06:25 40 MG Sacubitril/ Valsartan 0.5 tab BID PO 03/02/25 22:00 Enoxaparin Sodium 60 mg Q12HR SC 03/02/25 22:00 03/02/25 21:46 60 MG objective HEENT pupils are reactive Neck is supple CV is S1-S2 regular rate and rhythm Respiratory diminished breath sounds bases GI positive bowel sound 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 and microbiology Laboratory Tests 03/02/25 13:30 Test 03/02/25 13:30 Range/Units Serum Glucose 110 H 74-106 mg/dL Problems(with codes): (1) Influenza B (2) Elevated liver enzymes (3) Amphetamine abuse (4) Hiatal hernia (5) Acute pancreatitis Prognosis Plan Patient was seen by cardiology consult and is awaiting a echocardiogram Patient is on guideline directed medical therapy for CHF and spironolactone was added Patient is on antiplatelet therapy Influenza a and COVID were negative Suspected small bowel thickening is likely related to colonic wall and intestinal wall edema from fluid overload Supportive care from GI point of view, advance diet as tolerated, patient on IV antibiotics Dietary Evaluation Review Comments: 1) Liberalizing to 2gm Na diet 2) Monitor PO intake, lab values, weight trend, and I/O Expected Outcomes/Goals: To meet >75% estimated needs Fu 3-5 days Plan discussed with: Other (None) TRACY FORD MD Mar 02, 2025 22:43
[2025-03-03] VITALS (42 sets, daily range): BP systolic 71–158; BP diastolic 44–118; PULSE 73–105; RESP 19–26; TEMP 97.8–98.6; O2SAT 85–100
--- NOTE | 2025-03-03 05:48 | DVH ---
CHEST RADIOGRAPH Indication: shortness of breath Technique: 1 view Comparison: XY CHEST XRAY 1 VIEW on DOS: 03/01/25, XY CHEST PORTABLE on DOS: 02/25/25, XY CHEST PORTABL E on DOS: 04/26/24, XY CHEST XRAY 1 VIEW on DOS: 09/09/23, CHEST XRAY 1 VIEW on DOS: 07/03/21 FINDINGS: Lines and Tubes: Unchanged left implanted cardiac device. Lungs/Pleura: Unchanged. Cardiomediastinum: Unchanged. Other: Unchanged osseous structures. IMPRESSION: 1. No significant change from 2 days prior. Persistent bilateral mixed pulmonary opacities, pleural e ffusions, and hiatal hernia.
[2025-03-03] MEDS: NOREPINEPHRINE 8 MG/250ML KIT 250 ML IV ONE (13:30)
[2025-03-03] MEDS: NOREPINEPHRINE 8 MG/250ML KIT 250 ML IV SCH (15:25)
[2025-03-03 15:33] LABS: Base Excess -12.5 mmol/L (-2.0-3.0)
[2025-03-03] MEDS ORDERED: SODIUM BICARB 50mEq/50ml Vial 150 ML in D5W 5% 1,000 ML IV SCH (16:00)
[2025-03-03] MEDS: SODIUM CHLORIDE 0.9% 1,000 ML IV ONE (16:00)
[2025-03-03] MEDS: ROCURONIUM 10MG/ML 10ML VIAL IV ONE (16:15)
[2025-03-03] MEDS: PROPOFOL 100 ML IV SCH (16:15)
[2025-03-03] MEDS: ETOMIDATE (2MG/ML) 20ML VIAL IV ONE (16:15)
--- NOTE | 2025-03-03 16:26 | DVHINCON2 ---
Date of service: Mar 03, [address] sanderson Reason for Consultation Respiratory failure History of Present Illness HPI Patient is a 64-year-old lady with a history of cardiomyopathy and ICD/pacemaker who presented with worsening shortness of breath and desaturation on the medical floor. Patient noticed to have worsening renal function and rapid response was called due to why distress and tachy cardia. ABG obtained be 7.42 pCO2 28 PO2 64 Patient upgraded to be ICU I intubated the patient. Home Meds Active Scripts Pantoprazole Sodium Sesquihydr (Protonix) 40 Mg Tab, 40 MG PO BID for 30 Days, #60 TAB Prov:PING SANDERSON MD 02/28/25 Acetaminophen (Acetaminophen) 500 Mg Tab, 500 MG PO Q4HP PRN, #30 TAB Prov:AZIZA KOCH PAC 12/30/24 Dicyclomine Hcl (BENTYL CAPSULE) 10 Mg Cp, 1 CAP PO Q6HP PRN, #20 CAP 0 Refills Prov:AZIZA KOCH PAC 12/30/24 Reported Medications Levothyroxine Sodium (Levothyroxine Sodium) 50 Mcg Tab, 50 MCG PO QAM for 30 Days, MCG 02/26/25 Sacubitril-Valsartan (Entresto 24-26 mg) 1 Tab Tab, 1 TAB PO DAILY for HF, TAB 09/23/24 Potassium Chloride (Klor-Con 8) 8 Meq Tab, 8 MEQ PO DAILY for SUPPLEMENT, TAB 09/23/24 Sildenafil Citrate (SILDENAFIL CITRATE) 20 Mg Tab, 20 MG PO DAILY@0900 for PULMONARY HTN, TAB 04/29/24 Spironolactone (Spironolactone) 25 Mg Tab, 1 TAB PO DAILY for EDEMA/HTN 09/10/23 Clopidogrel Bisulfate (Plavix) 75 Mg Tab, 1 TAB PO DAILY for A.FIB 09/10/23 Aspirin (Aspirin Low Dose) 81 Mg Chw, 1 TAB PO DAILY for PREVENT BLOOD CLOTS 09/10/23 Furosemide (Furosemide) 40 Mg Tab, 1 TAB PO DAILY for EDEMA 09/10/23 Amiodarone Hcl (Amiodarone Hcl) 200 Mg Tab, 1 TAB PO DAILY for A.FIB 09/10/23 Past Medical History Cardiac: CHF Pulmonary: No pertinent Hx Central Nervous System: No pertinent Hx GI: No pertinent Hx Hemotology/Oncology: No pertinent Hx Hepatobiliary: No pertinent Hx Psychiatric: No pertinent Hx Musculoskeletal: No pertinent Hx Rheumotologic: No pertinent Hx Infectious Disease: No peritnent Hx ENT: No pertinent Hx Renal/: No pertinent Hx Endocrine: No pertinent Hx Dermatology: No pertinent Hx Past Surgical History: No pertinent Hx Family History: No pertinent Hx Patient Family History: Alzheimer's disease G8 MOTHER, Onset:50's - 60 Depression G8 MOTHER, Onset:40's - 50 Hypertension G8 MOTHER, Onset:40's - 50 Review of Systems Comments intubated H&P Exam Vital Signs Vital Signs Date Time Temp Pulse Resp B/P (MAP) Pulse Ox O2 Delivery O2 Flow Rate FiO2 03/03/25 14:12 90 20 97 03/03/25 13:00 98.6 71/53 (59) 98.6 03/03/25 10:22 Oxymizer 7.0 03/03/25 10:22 N/A General Appeara: Well developed, Well nourished, Normal Appearance Head Exam: Normal inspection Neck Exam: Normal inspection, Non-tender, Normal alignment Eye Exam: bilateral eye Normal inspection, bilateral eye PERRL, bilateral eye EOMI Ear Exam: bilateral ear Auricle normal, bilateral ear Canal normal Nasal Exam: Normal inspection Mouth: Normal Inspection Pulmonary/Respiratory: Normal inspection, Normal breath sounds, Chest non- tender Cardiovascular/Chest: Normal inspection Peripheral Pulses: 4+ carotid (R), 4+ carotid (L) Abdominal Exam: Normal bowel sounds, Soft Labs/Xrays Labs Test 03/03/25 15:25 03/02/25 20:46 03/02/25 17:00 03/02/25 13:30 Range/Units Blood Gas Specimen Type Arterial Blood Gas Sample Site Left radial Blood Gas Patient Temperature 37.0 Arterial Blood Date Drawn [id number] Arterial Blood pH 7.363 7.350-7.450 Arterial Blood Partial Pressure CO2 19.1 *L 32.0-45.0 mmHg Arterial Blood Partial Pressure O2 106.8 83.0-108.0 mmHg Arterial Blood HCO3 10.6 L 21.0-28.0 mmol/L Arterial Blood Oxygen Saturation 96.6 94.0-98.0 % Arterial Blood Base Excess -12.5 L -2.0-3.0 mmol/L Arterial Blood Oxyhemoglobin 95.7 94.0-98.0 % Arterial Blood Carboxyhemoglobin 0.5 0.5-1.5 % Arterial Blood Methemoglobin 0.4 0.0-1.5 % Sincere Test Yes Blood Gas Total Hemoglobin 12.30 12.0-16.0 g/dL Blood Gas Liter Flow 5.00 Blood Gas Modality Oxymizer FiO2 % 46.0 Blood Gas Critical Value Read Back yes Blood Gas Notified Whom Blood Gas Notified Time [id number] Blood Gas Notified By fire marshal ji D-Dimer, Quantitative 17.76 H 0.0-0.49 mg/L FEU Lactic Acid Level 2.7 *H 0.4-2.0 mmol/L White Blood Count 12.1 H 4.4-10.8 10^3/uL Red Blood Count 5.04 4.0-5.20 10^6/uL Hemoglobin 13.2 12.2-16.2 g/dL Hematocrit 42.5 # 36.0-46.0 % Mean Corpuscular Volume 84.3 80.0-100.0 fL Mean Corpuscular Hemoglobin 26.3 L 28.0-32.0 pg Mean Corpuscular Hemoglobin Concent 31.2 L 32.0-36.0 g/dL Red Cell Distribution Width 19.7 H 11.8-14.3 % Platelet Count 229 140-450 10^3/uL Mean Platelet Volume 7.7 6.9-10.8 fL Neutrophils (%) (Auto) 85.7 H 37.0-80.0 % Lymphocytes (%) (Auto) 6.3 L 10.0-50.0 % Monocytes (%) (Auto) 7.3 0.0-12.0 % Eosinophils (%) (Auto) 0.2 0.0-7.0 % Basophils (%) (Auto) 0.5 0.0-2.0 % Neutrophils # (Auto) 10.4 H 1.6-8.6 10 ^3/uL Lymphocytes # (Auto) 0.8 0.4-5.4 10 ^3/uL Monocytes # (Auto) 0.9 0-1.3 10 ^3/uL Eosinophils # (Auto) 0 0-0.8 10 ^3/uL Basophils # (Auto) 0.1 0-0.2 10 ^3/uL Nucleated Red Blood Cells 0.4 % Sodium Level 132 L 136-145 mmol/L Potassium Level 4.2 3.5-5.1 mmol/L Chloride Level 99 98-107 mmol/L Carbon Dioxide Level 19 L 20-31 mmol/L Anion Gap 14 5-15 Blood Urea Nitrogen 32 H 9-23 mg/dL Creatinine 1.38 H 0.550-1.02 mg/dL Glomerular Filtration Rate Calc 42 >90 mL/min BUN/Creatinine Ratio 23.2 H 10.0-20.0 Serum Glucose 110 H 74-106 mg/dL Calcium Level 8.4 L 8.7-10.4 mg/dL Aspartate Amino Transferase (AST) 590 H 13-40 U/L Alanine Aminotransferase (ALT) 407 H 7-40 U/L Test 03/01/25 15:44 03/01/25 13:19 03/01/25 05:54 02/27/25 08:37 Range/Units Influenza Type A Antigen Negative Negative Influenza Type B Antigen Negative Negative SARS-CoV-2 Antigen (Rapid) Negative NEGATIVE Free Thyroxine (T4) Calculated 1.07 0.89-1.76 ng/dL Free Triiodothyronine (T3) pg/mL 1.97 L 2.3-4.2 pg/mL Hemoglobin A1c 5.6 <5.7 % A1C Magnesium Level 2.0 1.6-2.6 mg/dL Total Bilirubin 1.1 H 0.2-1.0 mg/dL Alkaline Phosphatase 109 46-116 U/L Ammonia 18 11-32 umol/L C-Reactive Protein High Sensitivity 16.68 H <1.0 mg/dL B-Type Natriuretic Peptide 853.21 0-100 pg/mL Total Protein 5.9 5.7-8.2 g/dL Albumin 3.2 3.2-4.8 g/dL Triglycerides Level 102 < 150 mg/dL Cholesterol Level 133 < 200 mg/dL LDL Cholesterol 98 < 100 mg/dL HDL Cholesterol 27 L 40-59 mg/dL Lipase 22 12-53 U/L Thyroid Stimulating Hormone (TSH) 8.56 H 0.55-4.78 uIU/mL Prothrombin Time 11.9 H 9.3-11.8 sec Prothrombin Time INR 1.14 0.9-1.15 Activated Partial Thromboplast Time 26.0 24.5-34.5 SEC Test 02/26/25 06:09 02/25/25 23:50 Range/Units Iron Level 36 L 50-170 ug/dL Total Iron Binding Capacity 291 250-425 ug/dL Percent Iron Saturation 12.4 L 15-50 % Ferritin 45.5 10-291 ng/mL Vitamin B12 Level 484 211-911 pg/mL Urine Color Colorless Yellow Urine Clarity Clear Clear Urine pH 6.0 5.0-9.0 Urine Specific [place] 1.005 1.001-1.035 Urine Protein Negative Negative Urine Ketones Negative Negative Urine Blood Negative Negative /uL Urine Nitrite Negative Negative Urine Bilirubin Negative Negative Urine Urobilinogen Normal Negative mg/dL Urine Leukocyte Esterase Negative Negative /uL Urine RBC <1 0 - 4 /hpf Urine Microscopic WBC 2 0-5 /HPF Urine Squamous Epithelial Cells Few <5 /hpf Urine Bacteria None seen None Seen /hpf Urine Glucose Normal Normal mg/dL Urine Opiates Screen Neg NEGATIVE Urine Fentanyl Screen Neg NEGATIVE Urine Barbiturates Screen Neg NEGATIVE Urine Phencyclidine Screen Neg NEGATIVE Urine Amphetamines Screen Pos NEGATIVE Urine Benzodiazepines Screen Neg NEGATIVE Urine Cocaine Screen Neg NEGATIVE Urine Cannabinoids Screen Neg NEGATIVE Microbiology Date/Time Source Procedure Growth Status 02/26/25 03:43 Nose MRSA Screen - Final Complete 02/25/25 19:09 Blood Blood Culture - Final NO GROWTH AFTER 5 DAYS OF INCUBATION. Complete Assessment/Plan Plan Acute hypoxemic respiratory failure Congestive heart failure Metabolic acidosis Atelectasis Patient seen and examined Status post intubation Sedation fentanyl/Versed drips Start bicarb drip Three amps at 150 cc an hour and Bolus 2 L of normal saline Monitor renal function Monitor and replace electrolytes Follow up on ABG Adjustment ventilator settings Antibiotics Obtain cultures We will place central line Pressors as needed Keep MAP above 65 DVT prophylaxis Full code Critical care time 35 minutes +procedure time Plan discussed with: Other (rn) EVANS UGARTE MD Mar 03, 2025 16:26
--- NOTE | 2025-03-03 17:04 | DVHPN2 ---
Subjective Patient went into respiratory distress upgraded D OU, ABG showed hypoxia requiring intubation. Changes from previous H/P or p: Changes Objective Vitals Vital Signs Date Time Temp Pulse Resp B/P (MAP) Pulse Ox O2 Delivery O2 Flow Rate FiO2 03/03/25 16:31 98.6 73 20 158/93 (114) 94 98.6 03/03/25 10:22 Oxymizer 7.0 03/03/25 10:22 N/A Intake/Output Intake and Output 03/03/25 07:00 Intake Total 900 ml Balance 900 ml Intake Oral 600 ml IV Total 300 ml # Voids 5 Exam HEENT pupils are reactive Neck is supple CV is S1-S2 regular rate and rhythm Respiratory diminished breath sounds bases , bilateral basal crackles GI positive bowel sound Extremity no edema [employer] intubated and sedated Medications Current Medications Medications Dose Ordered Sig/Jose Luis Route Start Time Stop Time Status Last Admin Dose Admin Azithromycin 250 ml @ 125 mls/hr DAILY IV 02/26/25 10:00 03/03/25 10:05 125 MLS/HR Ceftriaxone Sodium 50 ml @ 100 mls/hr DAILY IV 02/26/25 10:00 03/03/25 10:04 100 MLS/HR Ondansetron HCl 4 mg Q6HP PRN IV 02/25/25 23:00 02/27/25 17:24 4 MG Morphine Sulfate 2 mg Q6HP PRN IV 02/25/25 23:00 02/26/25 02:50 2 MG Pantoprazole Sodium 40 mg DAILY IV 02/26/25 10:00 03/03/25 09:58 40 MG Acetaminophen/ Hydrocodone Bitart 1 tab Q6HPRN PRN PO 02/25/25 23:00 03/03/25 09:58 1 TAB Acetaminophen 650 mg Q6HPRN PRN PO 02/25/25 23:00 02/26/25 02:51 650 MG Lorazepam 1 mg Q6HP PRN PO 02/27/25 16:10 03/03/25 05:19 1 MG Guaifenesin 200 mg Q4HP PRN PO 02/28/25 15:00 03/03/25 05:19 200 MG Albuterol 2.5 mg Q4HWA NEB 02/28/25 18:00 03/03/25 14:07 2.5 MG Ipratropium [place] 0.5 mg Q4HWA [facility] 02/28/25 18:00 03/03/25 14:07 0.5 MG Albuterol 2.5 mg Q2HPRN PRN NEB 02/28/25 16:00 03/01/25 03:40 2.5 MG Ipratropium [place] 0.5 mg Q2HPRN PRN NEB 02/28/25 16:00 03/01/25 03:40 0.5 MG Aspirin 81 mg DAILY PO 03/02/25 10:00 03/03/25 09:58 81 MG Empaglifozin 10 mg DAILY PO 03/02/25 10:00 03/03/25 09:58 10 MG Metoprolol Succinate 25 mg DAILY PO 03/02/25 10:00 Hold 03/02/25 10:28 25 MG Furosemide 40 mg BIDD IV 03/01/25 18:00 03/02/25 06:25 40 MG Sacubitril/ Valsartan 0.5 tab BID PO 03/02/25 22:00 Enoxaparin Sodium 60 mg Q12HR SC 03/02/25 22:00 03/03/25 10:02 60 MG Norepinephrine Bitartrate 250 ml @ 3.75 mls/hr Q24H IV 03/03/25 15:00 Sodium Bicarbonate 150 ml/Dextrose 1,150 ml @ 150 mls/hr Q7H40M IV 03/03/25 16:00 Propofol 100 ml @ 1.854 mls/ hr Q24H IV 03/03/25 16:15 Midazolam HCl 50 ml @ 1 mls/hr Q24H IV 03/03/25 16:15 Fentanyl Citrate 250 ml @ 2.5 mls/hr Q24H IV 03/03/25 16:15 Laboratory Results Laboratory Tests 03/02/25 13:30 Coagulation Test 03/02/25 20:46 D-Dimer, Quantitative 17.76 mg/L FEU (0.0-0.49) H Urinalysis Test 02/25/25 23:50 Urine Color Colorless (Yellow) Urine Clarity Clear (Clear) Urine pH 6.0 (5.0-9.0) Urine Specific [place] 1.005 (1.001-1.035) Urine Protein Negative (Negative) Urine Ketones Negative (Negative) Urine Blood Negative /uL (Negative) Urine Nitrite Negative (Negative) Urine Bilirubin Negative (Negative) Urine Urobilinogen Normal mg/dL (Negative) Urine Leukocyte Esterase Negative /uL (Negative) Urine RBC <1 /hpf (0 - 4) Urine Microscopic WBC 2 /HPF (0-5) Urine Squamous Epithelial Cells Few /hpf (<5) Urine Bacteria None seen /hpf (None Seen) Urine Glucose Normal mg/dL (Normal) Blood Gas Results Test 03/03/25 15:25 Arterial Blood pH 7.363 (7.350-7.450) FiO2 % 46.0 Microbiology Microbiology Date/Time Source Procedure Growth Status 02/26/25 03:43 Nose MRSA Screen - Final Complete 02/25/25 19:09 Blood Blood Culture - Final NO GROWTH AFTER 5 DAYS OF INCUBATION. Complete Assessment/Plan Assessment/Plan 64-year-old female with a known history of pulmonary hypertension, ischemic cardiomyopathy, CAD status post PCI, COPD, chronic meth use presented to the hospital with the abdominal pain patient was found to have 1. acute hypoxic respiratory failure requiring intubation and mechanical ventilation 2. Abdominal pain, acute cholecystitis has been ruled out 3. Suspected pneumonia, on IV antibiotic 4. Acute on chronic congestive heart failure exacerbation with systolic dysfunction 5. Relative hypotension, currently on vasopressor 5. Chronic meth use 6. COPD 7. Chronic tobacco use disorder/marijuana use -c patient is currently on intubated and sedated, on IV antibiotics follow up cultures, continue Lasix, monitor urine output, continue IV vasopressor -patient's remains critical prognosis remains guarded. Plan discussed with: Other (Patient's bedside RN and rooming house inspector.) My Orders Orders - PING SANDERSON MD Procedure Category Date Status Time Abg W/ Co-Ox RT 03/03/25 Logged 14:45 Norepinephrine 8 PHA 03/03/25 In Process Mg/250ml Kit 15:00 Complete Blood Count LAB 03/03/25 Logged 16:17 Comprehensive LAB 03/03/25 Logged Metabolic Panel 16:17 Magnesium LAB 03/03/25 Logged 16:17 Lactic Acid W/ Reflex LAB 03/03/25 Logged Order 16:17 B-Type Natriuretic LAB 03/03/25 Logged Peptide 16:17 Date of Service: Mar 03, 2025 Billing Provider: PING SANDERSON MD Common Visit Codes: NOT BILLABLE PING SANDERSON MD Mar 03, 2025 17:04
--- NOTE | 2025-03-03 17:07 | CONS ---
Pharmacy Clinical Information: QTc = 505 on 02/25. Patient on azithromycin 500mg iv daily. Suggest repeat EKG; if QTc > 500, recommend changing to doxycycline [employer] [employer] PHARMACIST Mar 03, 2025 17:07
--- NOTE | 2025-03-03 17:23 | DVHPN2 ---
Consult Progress Note Subjective Other Systems: Patient in normal sinus rhythm on monitor car operator at time of assessment Objective vital signs Vital Sign Date Time Temp Pulse Resp B/P (MAP) Pulse Ox O2 Delivery O2 Flow Rate FiO2 03/03/25 16:31 98.6 73 20 158/93 (114) 94 98.6 03/03/25 10:22 Oxymizer 7.0 03/03/25 10:22 N/A Total Intake and Output 03/02/25 03/02/25 03/03/25 15:00 23:00 07:00 Intake Total 50 ml 650 ml 200 ml Balance 50 ml 650 ml 200 ml medications Current Medications Medications Dose Ordered Sig/Jose Luis Route Start Time Stop Time Status Last Admin Dose Admin Azithromycin 250 ml @ 125 mls/hr DAILY IV 02/26/25 10:00 03/03/25 10:05 125 MLS/HR Ceftriaxone Sodium 50 ml @ 100 mls/hr DAILY IV 02/26/25 10:00 03/03/25 10:04 100 MLS/HR Ondansetron HCl 4 mg Q6HP PRN IV 02/25/25 23:00 02/27/25 17:24 4 MG Morphine Sulfate 2 mg Q6HP PRN IV 02/25/25 23:00 02/26/25 02:50 2 MG Pantoprazole Sodium 40 mg DAILY IV 02/26/25 10:00 03/03/25 09:58 40 MG Acetaminophen/ Hydrocodone Bitart 1 tab Q6HPRN PRN PO 02/25/25 23:00 03/03/25 09:58 1 TAB Acetaminophen 650 mg Q6HPRN PRN PO 02/25/25 23:00 02/26/25 02:51 650 MG Lorazepam 1 mg Q6HP PRN PO 02/27/25 16:10 03/03/25 05:19 1 MG Guaifenesin 200 mg Q4HP PRN PO 02/28/25 15:00 03/03/25 05:19 200 MG Albuterol 2.5 mg Q4HWA NEB 02/28/25 18:00 03/03/25 14:07 2.5 MG Ipratropium [place] 0.5 mg Q4HWA NEB 02/28/25 18:00 03/03/25 14:07 0.5 MG Albuterol 2.5 mg Q2HPRN PRN NEB 02/28/25 16:00 03/01/25 03:40 2.5 MG Ipratropium [place] 0.5 mg Q2HPRN PRN NEB 02/28/25 16:00 03/01/25 03:40 0.5 MG Aspirin 81 mg DAILY PO 03/02/25 10:00 03/03/25 09:58 81 MG Empaglifozin 10 mg DAILY PO 03/02/25 10:00 03/03/25 09:58 10 MG Metoprolol Succinate 25 mg DAILY PO 03/02/25 10:00 Hold 03/02/25 10:28 25 MG Furosemide 40 mg BIDD IV 03/01/25 18:00 03/02/25 06:25 40 MG Sacubitril/ Valsartan 0.5 tab BID PO 03/02/25 22:00 Enoxaparin Sodium 60 mg Q12HR SC 03/02/25 22:00 03/03/25 10:02 60 MG Norepinephrine Bitartrate 250 ml @ 3.75 mls/hr Q24H IV 03/03/25 15:00 Sodium Bicarbonate 150 ml/Dextrose 1,150 ml @ 150 mls/hr Q7H40M IV 03/03/25 16:00 Propofol 100 ml @ 1.854 mls/ hr Q24H IV 03/03/25 16:15 Midazolam HCl 50 ml @ 1 mls/hr Q24H IV 03/03/25 16:15 Fentanyl Citrate 250 ml @ 2.5 mls/hr Q24H IV 03/03/25 16:15 Examination: GENERAL:Abnormal, LUNGS:Abnormal (Mechanically ventilated), CVS:Normal, NEURO:Abnormal (Chemically sedated) laboratory and microbiology Laboratory Tests 03/02/25 13:30 Test 03/02/25 13:30 Range/Units Serum Glucose 110 H 74-106 mg/dL Problem List/Assessment/Plan Problem List/Assessment/Plan Chronic HFrEF, NYHA class III Apical thrombus Severe coronary artery disease with questionable stent placement Ischemic cardiomyopathy Presence of ICD ([employer]tronic) Septic shock History myocardial infarction Hypertension Dyslipidemia Acute hypoxic respiratory failure secondary to pneumonia Pulmonary hypertension, severe degree COPD Transaminitis Hyperkalemia Acute kidney injury Thyroid disease Methamphetamine abuse Tobacco use Medical noncompliance Plan/Recommendations (Dr. Gibbs): * Transthoracic echocardiogram reveals EF 15-20% with apical thrombus. * Continue therapeutic Lovenox, transition to DOAC with Eliquis prior to discharge * Continue vasopressors for hemodynamic support (Quad concentration to prevent fluid overload) * Unable to continue guideline directed medical therapy for CHF given vasopressor support * Strict intake and output, daily weights, maintain fluid restriction * Antiplatelet therapy * Resume lipid-lowering agent with improved liver enzymes * Close cardiac surveillance * Antibiotics per primary care team Case discussed with . Transthoracic echocardiogram revealed an apical thrombus. Per guideline recommendations, Coumadin therapy is recommended. Given patient medical noncompliance and chronic meth use, doubt patient will be compliant with Coumadin Clinic. We will recommend off-label use of NOAC therapy Eliquis. Today, on 03/03/2025, the patient went into respiratory distress while on the telemetry floor requiring endotracheal intubation. At the time of assessment, the patient is now in the intensive care unit mechanically ventilated and chemically sedated. Patient also on vasopressor support for hemodynamic stability. Thank you for allowing us to care for this patient. Please call with any questions or concerns. Critical care time spent: 38 minutes. This medical document was created using an electronic medical record system with voice recognition software and computerized dictation system. Although this document has been carefully reviewed, there might still be some phonetic and typographical errors. Occasional wrong-word or ``sound-alike substitutions may have occurred due to the inherent limitations of voice recognition software. These areas are purely typographical due to imperfections of the software programs and do not reflect any compromise in the patient's medical care. Please read the chart carefully and recognize, using context, where these substitutions have occurred. Plan discussed with: Other (Bedside RN) Dietary Evaluation Review Comments: 1) Liberalizing to 2gm Na diet 2) Monitor PO intake, lab values, weight trend, and I/O Expected Outcomes/Goals: To meet >75% estimated needs Fu 3-5 days Date of Service: Mar 03, 2025 Billing Provider: ADELSO HALL Common Visit Codes: [id number] CARE 30-74 MIN ADELSO HALL Mar 03, 2025 17:23
[2025-03-03] MEDS: fentaNYL Drip 2500mCg/250mlNS 250 ML IV SCH (17:30)
[2025-03-03] MEDS: VASOPRESSIN 20 UNITS in SODIUM CHL 0.9% 99 ML IV SCH (17:30)
[2025-03-03] MEDS: MIDAZOLAM DRIP 50 mg/50mL 50 ML IV SCH (18:00)
--- NOTE | 2025-03-03 18:01 | DVH ---
CHEST RADIOGRAPH Indication: central line, intubation, og Technique: Single frontal view of the chest was obtained Comparison: XY CHEST XRAY 1 VIEW on DOS: 03/03/25, XY CHEST XRAY 1 VIEW on DOS: 03/01/25, XY CHEST POR TABLE on DOS: 02/25/25 FINDINGS: Lines and Tubes: Endotracheal tube 6.7 cm above the hosea. Right internal jugular catheter in the weiner perior vena cava above the right atrium. Dual-chamber pacemaker in place with pulse generator left ch est. Lungs: No focal consolidation. Pleura: No effusion. No pneumothorax. Cardiomediastinal contours: Unremarkable Bones: No acute osseous abnormality. IMPRESSION: 1. Endotracheal tube 6.7 cm of the hosea. 2. Right internal jugular catheter in superior vena cava above the right atrium. 3. Pacemaker in place 4. No significant change in cardiopulmonary findings.
[2025-03-03] MEDS: SODIUM BICARB 8.4% 50Meq/50ml SYR Vial IV ONE (18:05)
[2025-03-03] MEDS: SODIUM BICARB 50mEq/50ml Vial 150 ML in D5W 5% 1,000 ML IV SCH (18:20)
[2025-03-03 18:29] LABS: Anion Gap 15 (5-15); BUN/Creatinine Ratio 29.1 (10.0-20.0); Calcium 8.8 mg/dL (8.7-10.4); Glucose 98 mg/dL (74-106); Magnesium 2.4 mg/dL (1.6-2.6); Total Protein 5.8 g/dL (5.7-8.2)
[2025-03-03 18:31] LABS: Chloride 97 mmol/L (98-107); Sodium 131 mmol/L (136-145)
[2025-03-03 18:32] LABS: Alanine Aminotransferase 674 U/L (7-40); Albumin 3.0 g/dL (3.2-4.8); Alkaline Phosphatase 138 U/L (46-116); Bilirubin, Total 1.4 mg/dL (0.2-1.0); Blood Urea Nitrogen 55 mg/dL (9-23); Carbon Dioxide 19 mmol/L (20-31); Lactic Acid w/Reflex 4.3 mmol/L (0.4-2.0)
[2025-03-03 18:38] LABS: Base Excess -6.4 mmol/L (-2.0-3.0)
[2025-03-03 18:39] LABS: Potassium 5.7 mmol/L (3.5-5.1)
[2025-03-03] MEDS ORDERED: VANCOMYCIN PER PHARMACY 0 MG IV SCH (18:45)
[2025-03-03] MEDS: ALBUTEROL SULF 2.5 MG/0.5ML(0.5%) NEB SOLN NEB ONE (19:03)
[2025-03-03 19:30] LABS: Hematocrit 48.6 % (36.0-46.0); Hemoglobin 15.2 g/dL (12.2-16.2); Mean Corpuscular Hemoglobin 26.3 pg (28.0-32.0); Mean Corpuscular Volume 84.2 fL (80.0-100.0); Nucleated Red Blood Cells % 0.5 %
[2025-03-03] MEDS: SODIUM BICARB 8.4% 50Meq/50ml SYR INJ IV ONE (19:36)
[2025-03-03] MEDS: FUROSEMIDE 20 MG/2 ML VIAL IV ONE (19:36)
[2025-03-03] MEDS: DEXTROSE (50%) 50ML SYRG IV ONE (19:37)
[2025-03-03] MEDS: InsuLIN REG 1unit/0.01ml Soln (100units/ml) IV ONE (19:40)
[2025-03-03] MEDS: NOREPINEPHRINE BITARTRATE 32 MG in SODIUM CHL 0.9% 218 ML IV SCH (19:59)
--- NOTE | 2025-03-03 21:03 | DVHPN2 ---
Progress Note - Dictate Date Seen: Mar 03, 2025 Medical Necessity Reason Pt with a Central, PICC or Fol: No Subjective Patient had developed hypoxemia and hypotension this evening She was transferred to [facility] and subsequently required mechanical intubation Patient has been evaluated by Cardiology and Pulmonary She has moderate elevation in liver enzymes likely related to hypoxic liver injury or shock liver Ejection fraction is 15% and she is diagnosed with the apical thrombus Patient history of severe coronary artery disease She also had mild diffuse abdominal pain and other chronic pain syndrome One bowel movement was recorded yesterday and there was no bleeding vital signs Vital Sign Date Time Temp Pulse Resp B/P (MAP) Pulse Ox O2 Delivery O2 Flow Rate FiO2 03/03/25 19:36 114/62 03/03/25 18:30 97.9 98 24 100 97.9 03/03/25 18:22 40 03/03/25 10:22 Oxymizer 7.0 Total Intake and Output 03/02/25 03/02/25 03/03/25 15:00 23:00 07:00 Intake Total 50 ml 650 ml 200 ml Balance 50 ml 650 ml 200 ml medications Current Medications Medications Dose Ordered Sig/Jose Luis Route Start Time Stop Time Status Last Admin Dose Admin Azithromycin 250 ml @ 125 mls/hr DAILY IV 02/26/25 10:00 03/03/25 10:05 125 MLS/HR Ondansetron HCl 4 mg Q6HP PRN IV 02/25/25 23:00 02/27/25 17:24 4 MG Morphine Sulfate 2 mg Q6HP PRN IV 02/25/25 23:00 02/26/25 02:50 2 MG Pantoprazole Sodium 40 mg DAILY IV 02/26/25 10:00 03/03/25 09:58 40 MG Acetaminophen/ Hydrocodone Bitart 1 tab Q6HPRN PRN PO 02/25/25 23:00 03/03/25 09:58 1 TAB Acetaminophen 650 mg Q6HPRN PRN PO 02/25/25 23:00 02/26/25 02:51 650 MG Lorazepam 1 mg Q6HP PRN PO 02/27/25 16:10 03/03/25 05:19 1 MG Guaifenesin 200 mg Q4HP PRN PO 02/28/25 15:00 03/03/25 05:19 200 MG Albuterol 2.5 mg Q4HWA NEB 02/28/25 18:00 03/03/25 18:33 2.5 MG Ipratropium [place] 0.5 mg Q4HWA [facility] 02/28/25 18:00 03/03/25 18:33 0.5 MG Albuterol 2.5 mg Q2HPRN PRN NEB 02/28/25 16:00 03/01/25 03:40 2.5 MG Ipratropium [place] 0.5 mg Q2HPRN PRN [facility] 02/28/25 16:00 03/01/25 03:40 0.5 MG Aspirin 81 mg DAILY PO 03/02/25 10:00 03/03/25 09:58 81 MG Furosemide 40 mg BIDD IV 03/01/25 18:00 03/03/25 18:41 40 MG Propofol 100 ml @ 1.854 mls/ hr Q24H IV 03/03/25 16:15 Midazolam HCl 50 ml @ 1 mls/hr Q24H IV 03/03/25 16:15 03/03/25 18:00 1 MLS/HR Fentanyl Citrate 250 ml @ 2.5 mls/hr Q24H IV 03/03/25 16:15 03/03/25 17:30 2.5 MLS/HR Norepinephrine Bitartrate 32 mg/ Sodium Chloride 250 ml @ 0.938 mls/ hr Q24H IV 03/03/25 17:30 03/03/25 19:59 5.625 MLS/HR Vasopressin 20 units/Sodium Chloride 100 ml @ 9 mls/hr Q11H7M IV 03/03/25 17:30 Sodium Bicarbonate 150 ml/Dextrose 1,150 ml @ 100 mls/hr [id number] IV 03/03/25 17:30 03/03/25 18:20 100 MLS/HR Vancomycin HCl 0 ml @ 0 mls/hr UD IV 03/03/25 18:45 UNV Piperacillin Sod/ Tazobactam Sod 100 ml @ 25 mls/hr Q8HR IV 03/03/25 22:00 Linezolid 300 ml @ 150 mls/hr Q12HR IV 03/03/25 22:00 Enoxaparin Sodium 60 mg DAILY SC 03/04/25 10:00 objective HEENT pupils are reactive Neck is supple oxygen supplementation at the time of my visit at 4:00 p.m. CV is S1-S2 regular rate and rhythm Respiratory diminished breath sounds bases GI positive bowel sound Extremity no edema [employer] no motor deficit laboratory and microbiology Laboratory Tests 03/03/25 19:15 03/03/25 16:17 Test 03/03/25 16:17 Range/Units Serum Glucose 98 74-106 mg/dL Problems(with codes): (1) Amphetamine abuse (2) Hiatal hernia (3) Abdominal pain (4) Acute pancreatitis (5) Intractable abdominal pain (6) Pneumonia (7) CHF (congestive heart failure) (8) Elevated liver enzymes Prognosis Plan Patient is currently in ICU on ventilator support Continue pressor support Continue IV antibiotics Monitor labs, check hepatitis panel Ultrasound had shown cholelithiasis but no acute evidence of cholecystitis and HIDA scan is negative If clinical condition continues to deteriorate or signs of sepsis cholecystostomy tube can be considered Start IV TPN Start lactulose 30 mL G-tube daily because of elevated was Overall prognosis remains guarded Patient will be started on anticoagulants for an apical thrombus I will monitor her liver enzymes, hopefully these will trend downwards once her hypoxemia and hypotension in three Prognosis remains guarded, family is aware Dietary Evaluation Review Comments: 1) Liberalizing to 2gm Na diet 2) Monitor PO intake, lab values, weight trend, and I/O Expected Outcomes/Goals: To meet >75% estimated needs Fu 3-5 days Plan discussed with: Other (Dr Ahumada) TRACY FORD MD Mar 03, 2025 21:03
[2025-03-03 21:10] LABS: COVID19 ANTIGEN SOFIA FIA NEGATIVE (NEGATIVE)
[2025-03-03] MEDS: LINEZOLID 600MG/300ML 300 ML IV SCH (21:27)
[2025-03-03] MEDS: PIPERACILLIN-TAZOB 3.375GM 100 ML IV SCH (22:46)
[2025-03-04] VITALS (120 sets, daily range): BP systolic 78–131; BP diastolic 52–91; PULSE 102–120; RESP 19–26; TEMP 97.7–99.7; O2SAT 88–100
[2025-03-04 04:04] LABS: Hematocrit 41.5 % (36.0-46.0); Hemoglobin 13.3 g/dL (12.2-16.2); Mean Corpuscular Hemoglobin 26.3 pg (28.0-32.0); Mean Corpuscular Volume 82.1 fL (80.0-100.0); Nucleated Red Blood Cells % 0.7 %
[2025-03-04 04:21] LABS: Anion Gap 13 (5-15); BUN/Creatinine Ratio 25.3 (10.0-20.0); Carbon Dioxide 28 mmol/L (20-31); Magnesium 2.1 mg/dL (1.6-2.6); Potassium 3.7 mmol/L (3.5-5.1)
[2025-03-04 04:22] LABS: Bilirubin, Total 0.9 mg/dL (0.2-1.0)
[2025-03-04 04:33] LABS: Alanine Aminotransferase 618 U/L (7-40); Albumin 2.6 g/dL (3.2-4.8); Alkaline Phosphatase 120 U/L (46-116); Blood Urea Nitrogen 47 mg/dL (9-23); Calcium 8.1 mg/dL (8.7-10.4); Chloride 93 mmol/L (98-107); Glucose 230 mg/dL (74-106); Sodium 134 mmol/L (136-145); Total Protein 5.3 g/dL (5.7-8.2)
[2025-03-04 07:43] LABS: Base Excess 1.5 mmol/L (-2.0-3.0)
[2025-03-04] MEDS: LACTULOSE 20Gm/30ML SOLN PO SCH (08:01)
[2025-03-04] MEDS: ENOXAPARIN SOD 60 MG/0.6 ML SYRINGE SC SCH (08:02)
--- NOTE | 2025-03-04 08:30 | DVH ---
CHEST RADIOGRAPH Indication: RESP DISTRESS Technique: Single frontal view of the chest was obtained COMPARISON: XY CHEST PORTABLE on DOS: 03/03/25, XY CHEST XRAY 1 VIEW on DOS: 03/03/25, XY CHEST XRAY 1 VIEW on DOS: 03/01/25, XY CHEST PORTABLE on DOS: 02/25/25, XR CHEST 2 VIEW on DOS: 09/21/24 FINDINGS: Lines and Tubes: Endotracheal tube and right central venous catheter in satisfactory position. Left c hest wall AICD. Lungs: Unchanged pulmonary vascular congestion. Unchanged cardiomegaly. Pleura: No effusion. No pneumothorax. Cardiomediastinal contours: Unremarkable. Bones: Unremarkable. IMPRESSION: Unchanged pulmonary vascular congestion.
--- NOTE | 2025-03-04 10:13 | DVH ---
CHEST RADIOGRAPH Indication: ngt placement confirmation Technique: Single frontal view of the chest was obtained COMPARISON: XY CHEST PORTABLE on DOS: 03/04/25, XY CHEST PORTABLE on DOS: 03/03/25, XY CHEST XRAY 1 V IEW on DOS: 03/03/25, XY CHEST XRAY 1 VIEW on DOS: 03/01/25, XY CHEST PORTABLE on DOS: 02/25/25 FINDINGS: Lines and Tubes: Endotracheal tube 4 cm above the hosea. Central line cava. Pacemaker wires Lungs: Left basilar atelectasis Pleura: No effusion. No pneumothorax. Cardiomediastinal contours: Mild cardiomegaly Bones: Unremarkable IMPRESSION: 1. Left basilar atelectasis. Endotracheal to 4 cm above the hosea.
--- NOTE | 2025-03-04 15:13 | DVHPN2 ---
Subjective No cardiac events reported Remained sinus rhythm on monitor Currently on dual vasopressors Changes from previous H/P or p: No Changes Objective Vitals Vital Signs Date Time Temp Pulse Resp B/P (MAP) Pulse Ox O2 Delivery O2 Flow Rate FiO2 03/04/25 14:47 115 24 113/82 (92) 100 35 03/04/25 14:15 99.3 210.7 03/04/25 13:45 Mechanical Ventilator+ 03/04/25 08:00 0 Intake/Output Intake and Output 03/04/25 07:00 Intake Total 2410.441 ml Output Total 400 ml Balance 2010.441 ml Intake Oral 0 ml IV Total 2410.441 ml Output Urine Total 400 ml Medications Current Medications Medications Dose Ordered Sig/Jose Luis Route Start Time Stop Time Status Last Admin Dose Admin Azithromycin 250 ml @ 125 mls/hr DAILY IV 02/26/25 10:00 03/04/25 08:00 125 MLS/HR Ondansetron HCl 4 mg Q6HP PRN IV 02/25/25 23:00 02/27/25 17:24 4 MG Morphine Sulfate 2 mg Q6HP PRN IV 02/25/25 23:00 02/26/25 02:50 2 MG Pantoprazole Sodium 40 mg DAILY IV 02/26/25 10:00 03/04/25 08:01 40 MG Acetaminophen/ Hydrocodone Bitart 1 tab Q6HPRN PRN PO 02/25/25 23:00 03/03/25 09:58 1 TAB Acetaminophen 650 mg Q6HPRN PRN PO 02/25/25 23:00 02/26/25 02:51 650 MG Lorazepam 1 mg Q6HP PRN PO 02/27/25 16:10 03/03/25 05:19 1 MG Guaifenesin 200 mg Q4HP PRN PO 02/28/25 15:00 03/03/25 05:19 200 MG Albuterol 2.5 mg Q4HWA NEB 02/28/25 18:00 03/04/25 14:41 2.5 MG Ipratropium [place] 0.5 mg Q4HWA NEB 02/28/25 18:00 03/04/25 14:41 0.5 MG Albuterol 2.5 mg Q2HPRN PRN NEB 02/28/25 16:00 03/01/25 03:40 2.5 MG Ipratropium [place] 0.5 mg Q2HPRN PRN NEB 02/28/25 16:00 03/01/25 03:40 0.5 MG Aspirin 81 mg DAILY PO 03/02/25 10:00 03/03/25 09:58 81 MG Furosemide 40 mg BIDD IV 03/01/25 18:00 03/04/25 06:17 40 MG Propofol 100 ml @ 1.854 mls/ hr Q24H IV 03/03/25 16:15 Midazolam HCl 50 ml @ 1 mls/hr Q24H IV 03/03/25 16:15 03/04/25 03:23 4 MLS/HR Fentanyl Citrate 250 ml @ 2.5 mls/hr Q24H IV 03/03/25 16:15 03/03/25 17:30 2.5 MLS/HR Norepinephrine Bitartrate 32 mg/ Sodium Chloride 250 ml @ 0.938 mls/ hr Q24H IV 03/03/25 17:30 03/03/25 19:59 5.625 MLS/HR Vasopressin 20 units/Sodium Chloride 100 ml @ 9 mls/hr Q11H7M IV 03/03/25 17:30 03/04/25 05:11 9 MLS/HR Sodium Bicarbonate 150 ml/Dextrose 1,150 ml @ 100 mls/hr [id number] IV 03/03/25 17:30 03/04/25 05:10 100 MLS/HR Vancomycin HCl 0 ml @ 0 mls/hr UD IV 03/03/25 18:45 UNV Piperacillin Sod/ Tazobactam Sod 100 ml @ 25 mls/hr Q8HR IV 03/03/25 22:00 03/04/25 13:50 25 MLS/HR Linezolid 300 ml @ 150 mls/hr Q12HR IV 03/03/25 22:00 03/04/25 08:01 150 MLS/HR Enoxaparin Sodium 60 mg DAILY SC 03/04/25 10:00 03/04/25 08:02 60 MG Lactulose 30 ml DAILY PO 03/04/25 10:00 03/04/25 08:01 30 ML Enteral Nutritional Formula 1,000 ml 30ML/HR GT 03/04/25 14:15 Hydrocortisone Sodium Succinate 100 mg Q8HR IV 03/04/25 22:00 UNV Laboratory Results Laboratory Tests 03/04/25 03:17 Chemistry Test 03/03/25 16:17 03/04/25 03:17 Albumin 3.0 g/dL (3.2-4.8) L 2.6 g/dL (3.2-4.8) L Calcium Level 8.8 mg/dL (8.7-10.4) 8.1 mg/dL (8.7-10.4) L Magnesium Level 2.4 mg/dL (1.6-2.6) 2.1 mg/dL (1.6-2.6) Total Protein 5.8 g/dL (5.7-8.2) 5.3 g/dL (5.7-8.2) L Cardiac Markers Test 03/03/25 16:17 03/04/25 03:17 B-Type Natriuretic Peptide 560.42 pg/mL (0-100) 557.74 pg/mL (0-100) LFT Test 03/03/25 16:17 03/04/25 03:17 Alanine Aminotransferase (ALT) 674 U/L (7-40) H 618 U/L (7-40) H Alkaline Phosphatase 138 U/L (46-116) H 120 U/L (46-116) H Aspartate Amino Transferase (AST) > 1000 U/L (13-40) H 1241 U/L (13-40) H Total Bilirubin 1.4 mg/dL (0.2-1.0) H 0.9 mg/dL (0.2-1.0) Urinalysis Test 02/25/25 23:50 Urine Color Colorless (Yellow) Urine Clarity Clear (Clear) Urine pH 6.0 (5.0-9.0) Urine Specific [place] 1.005 (1.001-1.035) Urine Protein Negative (Negative) Urine Ketones Negative (Negative) Urine Blood Negative /uL (Negative) Urine Nitrite Negative (Negative) Urine Bilirubin Negative (Negative) Urine Urobilinogen Normal mg/dL (Negative) Urine Leukocyte Esterase Negative /uL (Negative) Urine RBC <1 /hpf (0 - 4) Urine Microscopic WBC 2 /HPF (0-5) Urine Squamous Epithelial Cells Few /hpf (<5) Urine Bacteria None seen /hpf (None Seen) Urine Glucose Normal mg/dL (Normal) Blood Gas Results Test 03/03/25 15:25 03/03/25 18:25 03/04/25 07:29 Arterial Blood pH 7.363 (7.350-7.450) 7.342 (7.350-7.450) 7.387 (7.350-7.450) FiO2 % 46.0 50.0 35.0 Microbiology Microbiology Date/Time Source Procedure Growth Status 02/26/25 03:43 Nose MRSA Screen - Final Complete 02/25/25 19:09 Blood Blood Culture - Final NO GROWTH AFTER 5 DAYS OF INCUBATION. Complete Assessment/Plan Assessment/Plan Chronic HFrEF, NYHA class III Apical thrombus Severe coronary artery disease with questionable stent placement Ischemic cardiomyopathy Presence of ICD ([employer]tronic) Septic shock History myocardial infarction Hypertension Dyslipidemia Acute hypoxic respiratory failure secondary to pneumonia Pulmonary hypertension, severe degree COPD Transaminitis Hyperkalemia Acute kidney injury Thyroid disease Methamphetamine abuse Tobacco use Medical noncompliance Plan/Recommendations (Dr. Gibbs): 03/04/25 --daughter at the bedside updated with cardiology plan of care. All questions were answered. Close cardiac surveillance. * Transthoracic echocardiogram reveals EF 15-20% with apical thrombus. * Continue therapeutic Lovenox, transition to DOAC with Eliquis prior to discharge * Continue vasopressors for hemodynamic support (Quad concentration to prevent fluid overload) * Unable to continue guideline directed medical therapy for CHF given vasopressor support * Strict intake and output, daily weights, maintain fluid restriction * Antiplatelet therapy * Resume lipid-lowering agent with improved liver enzymes * Close cardiac surveillance * Antibiotics per primary care team Case discussed with . Transthoracic echocardiogram revealed an apical thrombus. Per guideline recommendations, Coumadin therapy is recommended. Given patient medical noncompliance and chronic meth use, doubt patient will be compliant with Coumadin Clinic. We will recommend off-label use of NOAC therapy Eliquis. Today, on 03/03/2025, the patient went into respiratory distress while on the telemetry floor requiring endotracheal intubation. At the time of assessment, the patient is now in the intensive care unit mechanically ventilated and chemically sedated. Patient also on vasopressor support for hemodynamic stability. Thank you for allowing us to care for this patient. Please call with any questions or concerns. Critical care time spent: 38 minutes. This medical document was created using an electronic medical record system with voice recognition software and computerized dictation system. Although this document has been carefully reviewed, there might still be some phonetic and typographical errors. Occasional wrong-word or ``sound-alike substitutions may have occurred due to the inherent limitations of voice recognition software. These areas are purely typographical due to imperfections of the software programs and do not reflect any compromise in the patient's medical care. Please read the chart carefully and recognize, using context, where these substitutions have occurred. Plan discussed with: Other (Bedside RN) Plan discussed with: Patient Date of Service: Mar 04, 2025 Billing Provider: SABRA GIBBS Sr., MD Common Visit Codes: CONSULT ONLY Consultation Codes: [id number] CONSULT <45MIN DASHA MARIA [employer]ON[employer]ICAL RESEARCH ENGINEER Mar 04, 2025 15:13
--- NOTE | 2025-03-04 15:59 | DVHPN2 ---
Progress Note - Dictate Date Seen: Mar 04, 2025 Medical Necessity Reason Pt with a Central, PICC or Fol: No vital signs Vital Sign Date Time Temp Pulse Resp B/P (MAP) Pulse Ox O2 Delivery O2 Flow Rate FiO2 03/04/25 15:46 105/78 03/04/25 15:15 99.3 116 24 100 210.7 03/04/25 14:47 35 03/04/25 13:45 Mechanical Ventilator+ 03/04/25 08:00 0 Total Intake and Output 03/03/25 03/03/25 03/04/25 15:00 23:00 07:00 Intake Total 300 ml 905.751 ml 1204.690 ml Output Total 400 ml Balance 300 ml 905.751 ml 804.690 ml medications Current Medications Medications Dose Ordered Sig/Jose Luis Route Start Time Stop Time Status Last Admin Dose Admin Azithromycin 250 ml @ 125 mls/hr DAILY IV 02/26/25 10:00 03/04/25 08:00 125 MLS/HR Ondansetron HCl 4 mg Q6HP PRN IV 02/25/25 23:00 02/27/25 17:24 4 MG Morphine Sulfate 2 mg Q6HP PRN IV 02/25/25 23:00 02/26/25 02:50 2 MG Pantoprazole Sodium 40 mg DAILY IV 02/26/25 10:00 03/04/25 08:01 40 MG Acetaminophen/ Hydrocodone Bitart 1 tab Q6HPRN PRN PO 02/25/25 23:00 03/03/25 09:58 1 TAB Acetaminophen 650 mg Q6HPRN PRN PO 02/25/25 23:00 02/26/25 02:51 650 MG Lorazepam 1 mg Q6HP PRN PO 02/27/25 16:10 03/03/25 05:19 1 MG Guaifenesin 200 mg Q4HP PRN PO 02/28/25 15:00 03/03/25 05:19 200 MG Albuterol 2.5 mg Q4HWA NEB 02/28/25 18:00 03/04/25 14:41 2.5 MG Ipratropium [place] 0.5 mg Q4HWA NEB 02/28/25 18:00 03/04/25 14:41 0.5 MG Albuterol 2.5 mg Q2HPRN PRN NEB 02/28/25 16:00 03/01/25 03:40 2.5 MG Ipratropium [place] 0.5 mg Q2HPRN PRN NEB 02/28/25 16:00 03/01/25 03:40 0.5 MG Aspirin 81 mg DAILY PO 03/02/25 10:00 03/03/25 09:58 81 MG Furosemide 40 mg BIDD IV 03/01/25 18:00 03/04/25 15:46 40 MG Propofol 100 ml @ 1.854 mls/ hr Q24H IV 03/03/25 16:15 Midazolam HCl 50 ml @ 1 mls/hr Q24H IV 03/03/25 16:15 03/04/25 15:45 4 MLS/HR Fentanyl Citrate 250 ml @ 2.5 mls/hr Q24H IV 03/03/25 16:15 03/04/25 15:45 10 MLS/HR Norepinephrine Bitartrate 32 mg/ Sodium Chloride 250 ml @ 0.938 mls/ hr Q24H IV 03/03/25 17:30 03/03/25 19:59 5.625 MLS/HR Vasopressin 20 units/Sodium Chloride 100 ml @ 9 mls/hr Q11H7M IV 03/03/25 17:30 03/04/25 05:11 9 MLS/HR Sodium Bicarbonate 150 ml/Dextrose 1,150 ml @ 100 mls/hr [id number] IV 03/03/25 17:30 03/04/25 15:46 100 MLS/HR Vancomycin HCl 0 ml @ 0 mls/hr UD IV 03/03/25 18:45 UNV Piperacillin Sod/ Tazobactam Sod 100 ml @ 25 mls/hr Q8HR IV 03/03/25 22:00 03/04/25 13:50 25 MLS/HR Linezolid 300 ml @ 150 mls/hr Q12HR IV 03/03/25 22:00 03/04/25 08:01 150 MLS/HR Enoxaparin Sodium 60 mg DAILY SC 03/04/25 10:00 03/04/25 08:02 60 MG Lactulose 30 ml DAILY PO 03/04/25 10:00 03/04/25 08:01 30 ML Enteral Nutritional Formula 1,000 ml 30ML/HR GT 03/04/25 14:15 Hydrocortisone Sodium Succinate 100 mg Q8HR IV 03/04/25 22:00 laboratory and microbiology Laboratory Tests 03/04/25 03:17 Test 03/04/25 03:17 Range/Units Serum Glucose 230 H 74-106 mg/dL Assessment/Plan Patient is seen and examined in the ICU Diagnosis Influenza B Pneumonia Acute hypoxemic respiratory failure Renal failure Metabolic acidosis Remains on the ventilator ABG Stable /compensated Bicarb drip Chest x-ray reviewed Management plan Continue vent support Sedation was needed Daily ABGs and x-rays Continue bicarb drip and antibiotics Prognosis poor Family updated Echo care time 35 minutes Dietary Evaluation Review Comments: 1) Liberalizing to 2gm Na diet 2) Monitor PO intake, lab values, weight trend, and I/O Expected Outcomes/Goals: To meet >75% estimated needs Fu 3-5 days Plan discussed with: Other (rn) EVANS UGARTE MD Mar 04, 2025 15:59
--- NOTE | 2025-03-04 16:02 | DVHNC2 ---
Procedure - date 02/1025 Procedure endotracheal intubation Indication Respiratory failure Procedure in detail Consent and time-out protocol Sedation etomidate 20 mg rocuronium 50 mg Perez blade size 4 used ETT 8.0F placed through the vocal cords into the trachea and secured at 24 cm at the mouth correct position confirmed by auscultation of bs bilat in the lungs Positive capnography Chest x-ray ordered EVANS UGARTE MD Mar 04, 2025 16:02
--- NOTE | 2025-03-04 16:03 | DVHNC2 ---
Procedure - date 03/03/25 Procedure Right IJ central line placement Indication IV access Procedure in detail Consent and time-out the protocol ChloraPrep was used to clean the operative field Sterile draped Lidocaine 1% 5 cc Seldinger technique Triple-lumen catheter placed with no complications Sutures applied Sterile dressing applied Chest x-ray ordered EVANS UGARTE MD Mar 04, 2025 16:03
--- NOTE | 2025-03-04 17:56 | DVHPN2 ---
Subjective Patient went into respiratory distress upgraded D OU, ABG showed hypoxia requiring intubation. Currently daughter was updated at bedside patient is full code, patient will be continued on vasopressors IV diuretics. Changes from previous H/P or p: No Changes Objective Vitals Vital Signs Date Time Temp Pulse Resp B/P (MAP) Pulse Ox O2 Delivery O2 Flow Rate FiO2 03/04/25 16:27 101/76 03/04/25 16:00 115 03/04/25 16:00 35 03/04/25 15:59 24 100 Mechanical Ventilator+ 03/04/25 15:45 99.3 210.7 03/04/25 08:00 0 Intake/Output Intake and Output 03/04/25 07:00 Intake Total 2410.441 ml Output Total 400 ml Balance 2010.441 ml Intake Oral 0 ml IV Total 2410.441 ml Output Urine Total 400 ml Exam HEENT pupils are reactive Neck is supple CV is S1-S2 regular rate and rhythm Respiratory diminished breath sounds bases , bilateral basal crackles GI positive bowel sound Extremity no edema [employer] intubated and sedated Medications Current Medications Medications Dose Ordered Sig/Jose Luis Route Start Time Stop Time Status Last Admin Dose Admin Azithromycin 250 ml @ 125 mls/hr DAILY IV 02/26/25 10:00 03/04/25 08:00 125 MLS/HR Ondansetron HCl 4 mg Q6HP PRN IV 02/25/25 23:00 02/27/25 17:24 4 MG Morphine Sulfate 2 mg Q6HP PRN IV 02/25/25 23:00 02/26/25 02:50 2 MG Pantoprazole Sodium 40 mg DAILY IV 02/26/25 10:00 03/04/25 08:01 40 MG Acetaminophen/ Hydrocodone Bitart 1 tab Q6HPRN PRN PO 02/25/25 23:00 03/03/25 09:58 1 TAB Acetaminophen 650 mg Q6HPRN PRN PO 02/25/25 23:00 02/26/25 02:51 650 MG Lorazepam 1 mg Q6HP PRN PO 02/27/25 16:10 03/03/25 05:19 1 MG Guaifenesin 200 mg Q4HP PRN PO 02/28/25 15:00 03/03/25 05:19 200 MG Albuterol 2.5 mg Q4HWA NEB 02/28/25 18:00 03/04/25 14:41 2.5 MG Ipratropium [place] 0.5 mg Q4HWA [facility] 02/28/25 18:00 03/04/25 14:41 0.5 MG Albuterol 2.5 mg Q2HPRN PRN NEB 02/28/25 16:00 03/01/25 03:40 2.5 MG Ipratropium [place] 0.5 mg Q2HPRN PRN NEB 02/28/25 16:00 03/01/25 03:40 0.5 MG Aspirin 81 mg DAILY PO 03/02/25 10:00 03/03/25 09:58 81 MG Furosemide 40 mg BIDD IV 03/01/25 18:00 03/04/25 15:46 40 MG Propofol 100 ml @ 1.854 mls/ hr Q24H IV 03/03/25 16:15 Midazolam HCl 50 ml @ 1 mls/hr Q24H IV 03/03/25 16:15 03/04/25 15:45 4 MLS/HR Fentanyl Citrate 250 ml @ 2.5 mls/hr Q24H IV 03/03/25 16:15 03/04/25 15:45 10 MLS/HR Norepinephrine Bitartrate 32 mg/ Sodium Chloride 250 ml @ 0.938 mls/ hr Q24H IV 03/03/25 17:30 03/03/25 19:59 5.625 MLS/HR Vasopressin 20 units/Sodium Chloride 100 ml @ 9 mls/hr Q11H7M IV 03/03/25 17:30 03/04/25 16:27 9 MLS/HR Sodium Bicarbonate 150 ml/Dextrose 1,150 ml @ 100 mls/hr [id number] IV 03/03/25 17:30 03/04/25 15:46 100 MLS/HR Vancomycin HCl 0 ml @ 0 mls/hr UD IV 03/03/25 18:45 UNV Piperacillin Sod/ Tazobactam Sod 100 ml @ 25 mls/hr Q8HR IV 03/03/25 22:00 03/04/25 13:50 25 MLS/HR Linezolid 300 ml @ 150 mls/hr Q12HR IV 03/03/25 22:00 03/04/25 08:01 150 MLS/HR Enoxaparin Sodium 60 mg DAILY SC 03/04/25 10:00 03/04/25 08:02 60 MG Lactulose 30 ml DAILY PO 03/04/25 10:00 03/04/25 08:01 30 ML Enteral Nutritional Formula 1,000 ml 30ML/HR GT 03/04/25 14:15 Hydrocortisone Sodium Succinate 100 mg Q8HR IV 03/04/25 22:00 Laboratory Results Laboratory Tests 03/04/25 03:17 Chemistry Test 03/04/25 03:17 Albumin 2.6 g/dL (3.2-4.8) L Calcium Level 8.1 mg/dL (8.7-10.4) L Magnesium Level 2.1 mg/dL (1.6-2.6) Total Protein 5.3 g/dL (5.7-8.2) L Cardiac Markers Test 03/04/25 03:17 B-Type Natriuretic Peptide 557.74 pg/mL (0-100) LFT Test 03/04/25 03:17 Alanine Aminotransferase (ALT) 618 U/L (7-40) H Alkaline Phosphatase 120 U/L (46-116) H Aspartate Amino Transferase (AST) 1241 U/L (13-40) H Total Bilirubin 0.9 mg/dL (0.2-1.0) Urinalysis Test 02/25/25 23:50 Urine Color Colorless (Yellow) Urine Clarity Clear (Clear) Urine pH 6.0 (5.0-9.0) Urine Specific [place] 1.005 (1.001-1.035) Urine Protein Negative (Negative) Urine Ketones Negative (Negative) Urine Blood Negative /uL (Negative) Urine Nitrite Negative (Negative) Urine Bilirubin Negative (Negative) Urine Urobilinogen Normal mg/dL (Negative) Urine Leukocyte Esterase Negative /uL (Negative) Urine RBC <1 /hpf (0 - 4) Urine Microscopic WBC 2 /HPF (0-5) Urine Squamous Epithelial Cells Few /hpf (<5) Urine Bacteria None seen /hpf (None Seen) Urine Glucose Normal mg/dL (Normal) Blood Gas Results Test 03/03/25 18:25 03/04/25 07:29 Arterial Blood pH 7.342 (7.350-7.450) 7.387 (7.350-7.450) FiO2 % 50.0 35.0 Microbiology Microbiology Date/Time Source Procedure Growth Status 02/26/25 03:43 Nose MRSA Screen - Final Complete 02/25/25 19:09 Blood Blood Culture - Final NO GROWTH AFTER 5 DAYS OF INCUBATION. Complete Assessment/Plan Assessment/Plan 64-year-old female with a known history of pulmonary hypertension, ischemic cardiomyopathy, CAD status post PCI, COPD, chronic meth use presented to the hospital with the abdominal pain patient was found to have 1. acute hypoxic respiratory failure requiring intubation and mechanical ventilation 2. Abdominal pain, acute cholecystitis has been ruled out 3. Suspected pneumonia, on IV antibiotic 4. Acute on chronic congestive heart failure exacerbation with systolic dysfunction 5. Relative hypotension, currently on vasopressor 5. Chronic meth use 6. Acute kidney injury with a oliguria, continue IV diuretics, nephrology consult 7. Chronic tobacco use disorder/marijuana use -c patient is currently on intubated and sedated, on IV antibiotics follow up cultures, continue Lasix, monitor urine output, continue IV vasopressor -patient's remains critical prognosis remains guarded. -daughter updated at bedside. Plan discussed with: Daughter My Orders Orders - PING SANDERSON MD Procedure Category Date Status Time * Infectious [place]- CONS 03/03/25 Transmitted [facility] 18:42 Blood Culture NISREEN 03/03/25 In Process 18:42 Urine Bacterial NISREEN 03/03/25 In Process Culture 18:42 Linezolid 600mg/300ml PHA 03/03/25 In Process (Zyvox) 22:00 Piperacillin-Tazob PHA 03/03/25 In Process 3.375gm (Zosyn 3.375g 22:00 Chest Portable XY 03/04/25 Resulted 09:09 * Wound Consult CONS 03/04/25 Transmitted * Dietary Consult CONS 03/04/25 Transmitted 09:24 *[facility] CONS 03/04/25 Transmitted -[place] 16:51 Complete Blood Count LAB 03/05/25 Verified 04:00 Comprehensive LAB 03/05/25 Verified Metabolic Panel 04:00 Magnesium LAB 03/05/25 Verified 04:00 Chest Portable XY 03/05/25 Logged 04:00 Date of Service: Mar 04, 2025 Billing Provider: PING SANDERSON MD Common Visit Codes: NOT BILLABLE PING SANDERSON MD Mar 04, 2025 17:56
--- NOTE | 2025-03-04 20:58 | DVHPN2 ---
Progress Note - Dictate Date Seen: Mar 04, 2025 Medical Necessity Reason Pt with a Central, PICC or Fol: No Subjective Patient was seen in [facility] still intubated sedated Patient had developed hypoxemia and hypotension yesterday She was transferred to [facility] and subsequently required mechanical intubation Patient has been evaluated by Cardiology and Pulmonary She has moderate elevation in liver enzymes likely related to hypoxic liver injury or shock liver Liver enzymes have stabilized and are starting to trend down Ejection fraction is 15% and she is diagnosed with the apical thrombus Patient history of severe coronary artery disease She also had mild diffuse abdominal pain and other chronic pain syndrome Patient has cholelithiasis with a HIDA scan was negative One bowel movement was recorded yesterday and there was no bleeding vital signs Vital Sign Date Time Temp Pulse Resp B/P (MAP) Pulse Ox O2 Delivery O2 Flow Rate FiO2 03/04/25 20:30 98.4 120 24 114/79 (91) 98 209.1 03/04/25 20:00 Mechanical Ventilator+ 35 35 03/04/25 20:00 0 Total Intake and Output 03/03/25 03/03/25 03/04/25 15:00 23:00 07:00 Intake Total 300 ml 905.751 ml 1204.690 ml Output Total 400 ml Balance 300 ml 905.751 ml 804.690 ml medications Current Medications Medications Dose Ordered Sig/Jose Luis Route Start Time Stop Time Status Last Admin Dose Admin Azithromycin 250 ml @ 125 mls/hr DAILY IV 02/26/25 10:00 03/04/25 08:00 125 MLS/HR Ondansetron HCl 4 mg Q6HP PRN IV 02/25/25 23:00 02/27/25 17:24 4 MG Morphine Sulfate 2 mg Q6HP PRN IV 02/25/25 23:00 02/26/25 02:50 2 MG Pantoprazole Sodium 40 mg DAILY IV 02/26/25 10:00 03/04/25 08:01 40 MG Acetaminophen/ Hydrocodone Bitart 1 tab Q6HPRN PRN PO 02/25/25 23:00 03/03/25 09:58 1 TAB Acetaminophen 650 mg Q6HPRN PRN PO 02/25/25 23:00 02/26/25 02:51 650 MG Lorazepam 1 mg Q6HP PRN PO 02/27/25 16:10 03/03/25 05:19 1 MG Guaifenesin 200 mg Q4HP PRN PO 02/28/25 15:00 03/03/25 05:19 200 MG Albuterol 2.5 mg Q4HWA [facility] 02/28/25 18:00 03/04/25 18:12 2.5 MG Ipratropium [place] 0.5 mg Q4HWA [facility] 02/28/25 18:00 03/04/25 18:12 0.5 MG Albuterol 2.5 mg Q2HPRN PRN NEB 02/28/25 16:00 03/01/25 03:40 2.5 MG Ipratropium [place] 0.5 mg Q2HPRN PRN NEB 02/28/25 16:00 03/01/25 03:40 0.5 MG Aspirin 81 mg DAILY PO 03/02/25 10:00 03/03/25 09:58 81 MG Furosemide 40 mg BIDD IV 03/01/25 18:00 03/04/25 15:46 40 MG Propofol 100 ml @ 1.854 mls/ hr Q24H IV 03/03/25 16:15 Midazolam HCl 50 ml @ 1 mls/hr Q24H IV 03/03/25 16:15 03/04/25 15:45 4 MLS/HR Fentanyl Citrate 250 ml @ 2.5 mls/hr Q24H IV 03/03/25 16:15 03/04/25 15:45 10 MLS/HR Norepinephrine Bitartrate 32 mg/ Sodium Chloride 250 ml @ 0.938 mls/ hr Q24H IV 03/03/25 17:30 03/03/25 19:59 5.625 MLS/HR Vasopressin 20 units/Sodium Chloride 100 ml @ 9 mls/hr Q11H7M IV 03/03/25 17:30 03/04/25 16:27 9 MLS/HR Sodium Bicarbonate 150 ml/Dextrose 1,150 ml @ 100 mls/hr [id number] IV 03/03/25 17:30 03/04/25 15:46 100 MLS/HR Vancomycin HCl 0 ml @ 0 mls/hr UD IV 03/03/25 18:45 UNV Piperacillin Sod/ Tazobactam Sod 100 ml @ 25 mls/hr Q8HR IV 03/03/25 22:00 03/04/25 13:50 25 MLS/HR Linezolid 300 ml @ 150 mls/hr Q12HR IV 03/03/25 22:00 03/04/25 08:01 150 MLS/HR Enoxaparin Sodium 60 mg DAILY SC 03/04/25 10:00 03/04/25 08:02 60 MG Lactulose 30 ml DAILY PO 03/04/25 10:00 03/04/25 08:01 30 ML Enteral Nutritional Formula 1,000 ml 30ML/HR GT 03/04/25 14:15 Hydrocortisone Sodium Succinate 100 mg Q8HR IV 03/04/25 22:00 objective HEENT pupils are reactive Neck is supple oxygen supplementation at the time of my visit at 4:00 p.m. CV is S1-S2 regular rate and rhythm Respiratory diminished breath sounds bases GI positive bowel sound Extremity no edema [employer] no motor deficit laboratory and microbiology Laboratory Tests 03/04/25 03:17 Test 03/04/25 03:17 Range/Units Serum Glucose 230 H 74-106 mg/dL Problems(with codes): (1) Elevated liver enzymes (2) Amphetamine abuse (3) Hiatal hernia (4) Abdominal pain (5) Lactic acid acidosis (6) Cholelithiasis (7) CHF (congestive heart failure) Prognosis Plan Overall prognosis remains guarded and family is aware I discussed code status with the family and they want to continue to keep her full code Daughter states that she has been ill like this for the last 16 years Patient's influenza B his come back positive Start her on enteral tube feedings Continue to monitor labs Dietary Evaluation Review Comments: 1) Liberalizing to 2gm Na diet 2) Monitor PO intake, lab values, weight trend, and I/O Expected Outcomes/Goals: To meet >75% estimated needs Fu 3-5 days Plan discussed with: Daughter, Other ([facility] Nurse) TRACY FORD MD Mar 04, 2025 20:58
[2025-03-04] MEDS: HYDROCORTISONE SOD SUCC 100 MG/2ML INJ VIAL IV SCH (21:31)
[2025-03-05] VITALS (118 sets, daily range): BP systolic 80–152; BP diastolic 32–105; PULSE 76–138; RESP 14–25; TEMP 96.3–99; O2SAT 91–100
[2025-03-05 02:31] LABS: Mean Corpuscular Hemoglobin 26.3 pg (28.0-32.0)
[2025-03-05 02:34] LABS: Hematocrit 40.9 % (36.0-46.0); Hemoglobin 13.3 g/dL (12.2-16.2); Mean Corpuscular Volume 81.1 fL (80.0-100.0); Nucleated Red Blood Cells % 0.4 %
[2025-03-05 02:52] LABS: Alkaline Phosphatase 108 U/L (46-116); Anion Gap 10 (5-15); BUN/Creatinine Ratio 24.6 (10.0-20.0); Bilirubin, Total 1.0 mg/dL (0.2-1.0); Magnesium 1.8 mg/dL (1.6-2.6)
[2025-03-05 02:58] LABS: Carbon Dioxide 39 mmol/L (20-31); Chloride 87 mmol/L (98-107); Potassium 2.8 mmol/L (3.5-5.1); Sodium 136 mmol/L (136-145)
[2025-03-05 02:59] LABS: Alanine Aminotransferase 497 U/L (7-40); Albumin 2.6 g/dL (3.2-4.8); Blood Urea Nitrogen 31 mg/dL (9-23); Calcium 7.8 mg/dL (8.7-10.4); Glucose 187 mg/dL (74-106); Total Protein 5.3 g/dL (5.7-8.2)
--- NOTE | 2025-03-05 03:11 | DVH ---
CHEST RADIOGRAPH Indication: NGT Placement Confirmation Technique: Single frontal view of the chest was obtained COMPARISON: XY CHEST PORTABLE on DOS: 03/04/25, XY CHEST PORTABLE on DOS: 03/04/25, XY CHEST PORTABLE on DOS: 03/03/25, XY CHEST XRAY 1 VIEW on DOS: 03/03/25, XY CHEST XRAY 1 VIEW on DOS: 03/01/25 FINDINGS: Lines and Tubes: Unchanged. Left anterior chest wall cardiac pacing device. Lungs: Stable appearing moderate Bibasilar pulmonary airspace disease and left pleural effusion. No pneumothorax. Cardiomediastinal contours: Cardiomegaly. Bones: Unremarkable IMPRESSION: 1. Lines and tubes unchanged. 2. Stable Bibasilar pulmonary airspace disease and left pleural effusion. 3. Cardiomegaly.
[2025-03-05] MEDS: POTASSIUM CHL 20MEQ/100ML 100 ML IV SCH ×2 (03:54→18:08)
[2025-03-05 07:04] LABS: Base Excess 12.7 mmol/L (-2.0-3.0)
--- NOTE | 2025-03-05 09:46 | ECG ---
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
--- NOTE | 2025-03-05 10:29 | DVHINCON2 ---
Date of service: Mar 05, [address] Sanderson Reason for Consultation Acute kidney injury History of Present Illness Patient is a 64-year-old female who has past medical history significant for CAD, CHF, CVA, High Lipids, HTN, and HI who was admitted because epigastric pain found to have hiatal hernia. Hospital course was noted for worsening kidney function and respiratory failure. Patient intubated on ventilator nephrology is consulted for acute kidney injury Past Medical History PAST MEDICAL HISTORY: CAD, CHF, COPD, CVA, High Lipids, HTN, HI Past Surgical History Surgical History: Pacemaker, PTCA, Tonsillectomy, Tubal Ligation Allergies: Coded Allergies: NO KNOWN ALLERGIES (Unverified , 09/23/24) Home Meds Active Scripts Pantoprazole Sodium Sesquihydr (Protonix) 40 Mg Tab, 40 MG PO BID for 30 Days, #60 TAB Prov:PING SANDERSON MD 02/28/25 Acetaminophen (Acetaminophen) 500 Mg Tab, 500 MG PO Q4HP PRN, #30 TAB Prov:AZIZA KOCH PAC 12/30/24 Dicyclomine Hcl (BENTYL CAPSULE) 10 Mg Cp, 1 CAP PO Q6HP PRN, #20 CAP 0 Refills Prov:AZIZA KOCH PAC 12/30/24 Reported Medications Levothyroxine Sodium (Levothyroxine Sodium) 50 Mcg Tab, 50 MCG PO QAM for 30 Days, MCG 02/26/25 Sacubitril-Valsartan (Entresto 24-26 mg) 1 Tab Tab, 1 TAB PO DAILY for HF, TAB 09/23/24 Potassium Chloride (Klor-Con 8) 8 Meq Tab, 8 MEQ PO DAILY for SUPPLEMENT, TAB 09/23/24 Sildenafil Citrate (SILDENAFIL CITRATE) 20 Mg Tab, 20 MG PO DAILY@0900 for PULMONARY HTN, TAB 04/29/24 Spironolactone (Spironolactone) 25 Mg Tab, 1 TAB PO DAILY for EDEMA/HTN 09/10/23 Clopidogrel Bisulfate (Plavix) 75 Mg Tab, 1 TAB PO DAILY for A.FIB 09/10/23 Aspirin (Aspirin Low Dose) 81 Mg Chw, 1 TAB PO DAILY for PREVENT BLOOD CLOTS 09/10/23 Furosemide (Furosemide) 40 Mg Tab, 1 TAB PO DAILY for EDEMA 09/10/23 Amiodarone Hcl (Amiodarone Hcl) 200 Mg Tab, 1 TAB PO DAILY for A.FIB 09/10/23 Current Medications Current Medications Medications (Trade) Dose Ordered Sig/Jose Luis Route PRN Reason Start Time Stop Time Status Last Admin Enteral Nutritional Formula (Jevity 1.2 Eleazar/ Fiber) 1,000 ml 30ML/HR GT 03/04/25 14:15 Hydrocortisone Sodium Succinate (Solu-CORTEF INJECTION) 100 mg Q8HR IV 03/04/25 22:00 03/05/25 05:33 Potassium Chloride 100 ml @ 50 mls/hr Q2H IV 03/05/25 03:45 03/05/25 09:44 DC 03/05/25 07:27 Family History: Alzheimer's disease G8 MOTHER, Onset:50's - 60 Depression G8 MOTHER, Onset:40's - 50 Hypertension G8 MOTHER, Onset:40's - 50 Review of Systems Can not be obtained H&P Exam Vital Signs/I&O Vital Sign Date Time Temp Pulse Resp B/P (MAP) Pulse Ox O2 Delivery O2 Flow Rate FiO2 03/05/25 10:03 97 Mechanical Ventilator+ 35 35 03/05/25 10:03 79 03/05/25 10:02 24 03/05/25 10:00 90/63 (72) 03/05/25 09:45 96.6 205.9 03/04/25 20:00 0 Intake and Output 03/04/25 03/05/25 19:00 07:00 Intake Total 2325.480 ml 2155.505 ml Output Total 1500 ml 2700 ml Balance 825.480 ml -544.495 ml Intake Oral 0 ml IV Total 2325.480 ml 2155.505 ml Output Urine Total 1500 ml 2700 ml Physical Exam Patient intubated on ventilator Lungs clear to auscultation bilaterally Cardiac exam regular rate and rhythm GI soft nontender Henriquez catheter Extremities no clubbing cyanosis or edema Neuro patient is a sedated Labs/Diagnostic Data Labs/Diagnostic Data Laboratory Tests Test 03/05/25 06:34 03/05/25 02:00 03/04/25 07:29 03/04/25 03:17 Range/Units Blood Gas Specimen Type Arterial Arterial Blood Gas Sample Site Right radial Left radial Blood Gas Patient Temperature 37.0 37.0 Arterial Blood Date Drawn [id number] Arterial Blood pH 7.524 H 7.387 7.350-7.450 Arterial Blood Partial Pressure CO2 46.1 H 46.1 H 32.0-45.0 mmHg Arterial Blood Partial Pressure O2 80.7 L 71.2 L 83.0-108.0 mmHg Arterial Blood HCO3 37.1 H 27.1 21.0-28.0 mmol/L Arterial Blood Oxygen Saturation 95.6 91.9 L 94.0-98.0 % Arterial Blood Base Excess 12.7 H 1.5 -2.0-3.0 mmol/L Arterial Blood Oxyhemoglobin 93.7 L 90.2 L 94.0-98.0 % Arterial Blood Carboxyhemoglobin 1.4 1.3 0.5-1.5 % Arterial Blood Methemoglobin 0.6 0.5 0.0-1.5 % Sincere Test Modified Modified Blood Gas Total Hemoglobin 13.80 14.20 12.0-16.0 g/dL Blood Gas Set Respiration Rate 24.0 24.0 Blood Gas Modality Vent - ac Vent - ac FiO2 % 35.0 35.0 Blood Gas Tidal Volume 400.0 400.0 Blood Gas PEEP or CPAP 5.0 5.0 White Blood Count 11.5 H 13.5 H 4.4-10.8 10^3/uL Red Blood Count 5.05 5.05 4.0-5.20 10^6/uL Hemoglobin 13.3 13.3 12.2-16.2 g/dL Hematocrit 40.9 41.5 # 36.0-46.0 % Mean Corpuscular Volume 81.1 82.1 80.0-100.0 fL Mean Corpuscular Hemoglobin 26.3 L 26.3 L 28.0-32.0 pg Mean Corpuscular Hemoglobin Concent 32.5 32.1 32.0-36.0 g/dL Red Cell Distribution Width 19.8 H 19.2 H 11.8-14.3 % Platelet Count 219 230 140-450 10^3/uL Mean Platelet Volume 8.2 8.1 6.9-10.8 fL Neutrophils (%) (Auto) 94.9 H 90.5 H 37.0-80.0 % Lymphocytes (%) (Auto) 1.3 L 3.2 L 10.0-50.0 % Monocytes (%) (Auto) 3.3 5.6 0.0-12.0 % Eosinophils (%) (Auto) 0.0 0.5 0.0-7.0 % Basophils (%) (Auto) 0.5 0.2 0.0-2.0 % Neutrophils # (Auto) 10.9 H 12.2 H 1.6-8.6 10 ^3/uL Lymphocytes # (Auto) 0.2 L 0.4 0.4-5.4 10 ^3/uL Monocytes # (Auto) 0.4 0.8 0-1.3 10 ^3/uL Eosinophils # (Auto) 0 0.1 0-0.8 10 ^3/uL Basophils # (Auto) 0.1 0 0-0.2 10 ^3/uL Nucleated Red Blood Cells 0.4 0.7 % Sodium Level 136 134 L 136-145 mmol/L Potassium Level 2.8 L 3.7 # 3.5-5.1 mmol/L Chloride Level 87 L 93 L 98-107 mmol/L Carbon Dioxide Level 39 H 28 20-31 mmol/L Anion Gap 10 13 5-15 Blood Urea Nitrogen 31 #H 47 H 9-23 mg/dL Creatinine 1.26 #H 1.86 H 0.550-1.02 mg/dL Glomerular Filtration Rate Calc 47 30 >90 mL/min BUN/Creatinine Ratio 24.6 H 25.3 H 10.0-20.0 Serum Glucose 187 H 230 H 74-106 mg/dL Calcium Level 7.8 L 8.1 L 8.7-10.4 mg/dL Magnesium Level 1.8 2.1 1.6-2.6 mg/dL Total Bilirubin 1.0 0.9 0.2-1.0 mg/dL Aspartate Amino Transferase (AST) 675 H 1241 H 13-40 U/L Alanine Aminotransferase (ALT) 497 H 618 H 7-40 U/L Alkaline Phosphatase 108 120 H 46-116 U/L Total Protein 5.3 L 5.3 L 5.7-8.2 g/dL Albumin 2.6 L 2.6 L 3.2-4.8 g/dL Blood Gas Spontaneous Rate 24 Ammonia 15 11-32 umol/L B-Type Natriuretic Peptide 557.74 0-100 pg/mL Test 03/03/25 20:01 03/03/25 19:15 03/03/25 18:25 03/03/25 16:17 Range/Units Influenza Type A Antigen Negative Negative Influenza Type B Antigen Positive Negative SARS-CoV-2 Antigen (Rapid) Negative NEGATIVE White Blood Count 15.8 #H 4.4-10.8 10^3/uL Red Blood Count 5.77 H 4.0-5.20 10^6/uL Hemoglobin 15.2 # 12.2-16.2 g/dL Hematocrit 48.6 #H 36.0-46.0 % Mean Corpuscular Volume 84.2 80.0-100.0 fL Mean Corpuscular Hemoglobin 26.3 L 28.0-32.0 pg Mean Corpuscular Hemoglobin Concent 31.3 L 32.0-36.0 g/dL Red Cell Distribution Width 19.8 H 11.8-14.3 % Platelet Count 227 140-450 10^3/uL Mean Platelet Volume 7.8 6.9-10.8 fL Neutrophils (%) (Auto) 91.7 H 37.0-80.0 % Lymphocytes (%) (Auto) 3.0 L 10.0-50.0 % Monocytes (%) (Auto) 4.8 0.0-12.0 % Eosinophils (%) (Auto) 0.1 0.0-7.0 % Basophils (%) (Auto) 0.4 0.0-2.0 % Neutrophils # (Auto) 14.5 H 1.6-8.6 10 ^3/uL Lymphocytes # (Auto) 0.5 0.4-5.4 10 ^3/uL Monocytes # (Auto) 0.8 0-1.3 10 ^3/uL Eosinophils # (Auto) 0 0-0.8 10 ^3/uL Basophils # (Auto) 0.1 0-0.2 10 ^3/uL Nucleated Red Blood Cells 0.5 % Lactic Acid Level 4.7 *H 4.3 *H 0.4-2.0 mmol/L Blood Gas Specimen Type Arterial Blood Gas Sample Site Left radial Blood Gas Patient Temperature 37.0 Arterial Blood Date Drawn [id number] Arterial Blood pH 7.342 L 7.350-7.450 Arterial Blood Partial Pressure CO2 34.7 32.0-45.0 mmHg Arterial Blood Partial Pressure O2 161.2 H 83.0-108.0 mmHg Arterial Blood HCO3 18.4 L 21.0-28.0 mmol/L Arterial Blood Oxygen Saturation 98.8 H 94.0-98.0 % Arterial Blood Base Excess -6.4 L -2.0-3.0 mmol/L Arterial Blood Oxyhemoglobin 97.1 94.0-98.0 % Arterial Blood Carboxyhemoglobin 1.1 0.5-1.5 % Arterial Blood Methemoglobin 0.6 0.0-1.5 % Sincere Test Modified Blood Gas Total Hemoglobin 14.60 12.0-16.0 g/dL Blood Gas Set Respiration Rate 24.0 Blood Gas Modality Vent - ac FiO2 % 50.0 Blood Gas Tidal Volume 400.0 Blood Gas PEEP or CPAP 5.0 Sodium Level 131 L 136-145 mmol/L Potassium Level 5.7 *H 3.5-5.1 mmol/L Chloride Level 97 L 98-107 mmol/L Carbon Dioxide Level 19 L 20-31 mmol/L Anion Gap 15 5-15 Blood Urea Nitrogen 55 #H 9-23 mg/dL Creatinine 1.89 #H 0.550-1.02 mg/dL Glomerular Filtration Rate Calc 29 >90 mL/min BUN/Creatinine Ratio 29.1 H 10.0-20.0 Serum Glucose 98 74-106 mg/dL Calcium Level 8.8 8.7-10.4 mg/dL Magnesium Level 2.4 1.6-2.6 mg/dL Total Bilirubin 1.4 H 0.2-1.0 mg/dL Aspartate Amino Transferase (AST) > 1000 H 13-40 U/L Alanine Aminotransferase (ALT) 674 H 7-40 U/L Alkaline Phosphatase 138 H 46-116 U/L B-Type Natriuretic Peptide 560.42 0-100 pg/mL Total Protein 5.8 5.7-8.2 g/dL Albumin 3.0 L 3.2-4.8 g/dL Test 03/03/25 15:25 03/02/25 20:46 03/02/25 17:00 03/02/25 15:45 Range/Units Blood Gas Specimen Type Arterial Arterial Blood Gas Sample Site Left radial Left radial Blood Gas Patient Temperature 37.0 37.0 Arterial Blood Date Drawn [id number] Arterial Blood pH 7.363 7.420 7.350-7.450 Arterial Blood Partial Pressure CO2 19.1 *L 28.3 L 32.0-45.0 mmHg Arterial Blood Partial Pressure O2 106.8 64.0 L 83.0-108.0 mmHg Arterial Blood HCO3 10.6 L 17.9 L 21.0-28.0 mmol/L Arterial Blood Oxygen Saturation 96.6 89.9 L 94.0-98.0 % Arterial Blood Base Excess -12.5 L -5.1 L -2.0-3.0 mmol/L Arterial Blood Oxyhemoglobin 95.7 88.5 L 94.0-98.0 % Arterial Blood Carboxyhemoglobin 0.5 1.1 0.5-1.5 % Arterial Blood Methemoglobin 0.4 0.5 0.0-1.5 % Sincere Test Yes Yes Blood Gas Total Hemoglobin 12.30 13.70 12.0-16.0 g/dL Blood Gas Liter Flow 5.00 6.00 Blood Gas Modality Oxymizer Oxymizer FiO2 % 46.0 46.0 Blood Gas Critical Value Read Back yes Blood Gas Notified Whom Blood Gas Notified Time [id number] Blood Gas Notified By italian teacher ji D-Dimer, Quantitative 17.76 H 0.0-0.49 mg/L FEU Lactic Acid Level 2.7 *H 0.4-2.0 mmol/L Test 03/02/25 13:30 03/01/25 15:44 03/01/25 13:19 03/01/25 10:06 Range/Units White Blood Count 12.1 H 4.4-10.8 10^3/uL Red Blood Count 5.04 4.0-5.20 10^6/uL Hemoglobin 13.2 12.2-16.2 g/dL Hematocrit 42.5 # 36.0-46.0 % Mean Corpuscular Volume 84.3 80.0-100.0 fL Mean Corpuscular Hemoglobin 26.3 L 28.0-32.0 pg Mean Corpuscular Hemoglobin Concent 31.2 L 32.0-36.0 g/dL Red Cell Distribution Width 19.7 H 11.8-14.3 % Platelet Count 229 140-450 10^3/uL Mean Platelet Volume 7.7 6.9-10.8 fL Neutrophils (%) (Auto) 85.7 H 37.0-80.0 % Lymphocytes (%) (Auto) 6.3 L 10.0-50.0 % Monocytes (%) (Auto) 7.3 0.0-12.0 % Eosinophils (%) (Auto) 0.2 0.0-7.0 % Basophils (%) (Auto) 0.5 0.0-2.0 % Neutrophils # (Auto) 10.4 H 1.6-8.6 10 ^3/uL Lymphocytes # (Auto) 0.8 0.4-5.4 10 ^3/uL Monocytes # (Auto) 0.9 0-1.3 10 ^3/uL Eosinophils # (Auto) 0 0-0.8 10 ^3/uL Basophils # (Auto) 0.1 0-0.2 10 ^3/uL Nucleated Red Blood Cells 0.4 % Sodium Level 132 L 136-145 mmol/L Potassium Level 4.2 3.5-5.1 mmol/L Chloride Level 99 98-107 mmol/L Carbon Dioxide Level 19 L 20-31 mmol/L Anion Gap 14 5-15 Blood Urea Nitrogen 32 H 9-23 mg/dL Creatinine 1.38 H 0.550-1.02 mg/dL Glomerular Filtration Rate Calc 42 >90 mL/min BUN/Creatinine Ratio 23.2 H 10.0-20.0 Serum Glucose 110 H 74-106 mg/dL Calcium Level 8.4 L 8.7-10.4 mg/dL Aspartate Amino Transferase (AST) 590 H 13-40 U/L Alanine Aminotransferase (ALT) 407 H 7-40 U/L Influenza Type A Antigen Negative Negative Influenza Type B Antigen Negative Negative SARS-CoV-2 Antigen (Rapid) Negative NEGATIVE Free Thyroxine (T4) Calculated 1.07 0.89-1.76 ng/dL Free Triiodothyronine (T3) pg/mL 1.97 L 2.3-4.2 pg/mL Lactic Acid Level 3.8 *H 0.4-2.0 mmol/L Test 03/01/25 08:03 03/01/25 05:54 02/28/25 06:24 02/27/25 08:37 Range/Units Lactic Acid Level 4.1 *H 3.2 *H 0.4-2.0 mmol/L White Blood Count 10.1 9.4 10.2 # 4.4-10.8 10^3/uL Red Blood Count 4.47 4.50 4.89 4.0-5.20 10^6/uL Hemoglobin 11.9 L 12.0 L 13.0 12.2-16.2 g/dL Hematocrit 37.0 37.2 40.8 # 36.0-46.0 % Mean Corpuscular Volume 82.7 82.6 83.4 80.0-100.0 fL Mean Corpuscular Hemoglobin 26.7 L 26.6 L 26.6 L 28.0-32.0 pg Mean Corpuscular Hemoglobin Concent 32.3 32.2 31.8 L 32.0-36.0 g/dL Red Cell Distribution Width 18.9 H 19.4 H 19.7 H 11.8-14.3 % Platelet Count 314 370 350 140-450 10^3/uL Mean Platelet Volume 7.6 7.3 7.4 6.9-10.8 fL Neutrophils (%) (Auto) 83.6 H 79.2 88.1 H 37.0-80.0 % Lymphocytes (%) (Auto) 7.4 L 10.6 5.4 L 10.0-50.0 % Monocytes (%) (Auto) 8.5 9.5 5.9 0.0-12.0 % Eosinophils (%) (Auto) 0.2 0.2 0.0 0.0-7.0 % Basophils (%) (Auto) 0.3 0.5 0.6 0.0-2.0 % Neutrophils # (Auto) 8.4 7.4 9.0 H 1.6-8.6 10 ^3/uL Lymphocytes # (Auto) 0.7 1.0 0.6 0.4-5.4 10 ^3/uL Monocytes # (Auto) 0.9 0.9 0.6 0-1.3 10 ^3/uL Eosinophils # (Auto) 0 0 0 0-0.8 10 ^3/uL Basophils # (Auto) 0 0 0.1 0-0.2 10 ^3/uL Nucleated Red Blood Cells 0.2 0.1 0.0 % Sodium Level 134 L 136 135 #L 136-145 mmol/L Potassium Level 4.5 4.0 3.8 3.5-5.1 mmol/L Chloride Level 100 102 102 98-107 mmol/L Carbon Dioxide Level 22 21 19 L 20-31 mmol/L Anion Gap 12 13 14 5-15 Blood Urea Nitrogen 35 #H 19 13 9-23 mg/dL Creatinine 1.44 H 1.11 H 0.92 0.550-1.02 mg/dL Glomerular Filtration Rate Calc 40 55 69 >90 mL/min BUN/Creatinine Ratio 24.3 H 17.1 14.1 10.0-20.0 Serum Glucose 81 96 105 74-106 mg/dL Hemoglobin A1c 5.6 <5.7 % A1C Calcium Level 9.0 9.0 9.1 8.7-10.4 mg/dL Magnesium Level 2.0 1.6-2.6 mg/dL Total Bilirubin 1.1 H 0.2-1.0 mg/dL Aspartate Amino Transferase (AST) 760 H 13-40 U/L Alanine Aminotransferase (ALT) 292 H 7-40 U/L Alkaline Phosphatase 109 46-116 U/L Ammonia 18 11-32 umol/L C-Reactive Protein High Sensitivity 16.68 H <1.0 mg/dL B-Type Natriuretic Peptide 853.21 0-100 pg/mL Total Protein 5.9 5.7-8.2 g/dL Albumin 3.2 3.2-4.8 g/dL Triglycerides Level 102 < 150 mg/dL Cholesterol Level 133 < 200 mg/dL LDL Cholesterol 98 < 100 mg/dL HDL Cholesterol 27 L 40-59 mg/dL Lipase 22 12-53 U/L Thyroid Stimulating Hormone (TSH) 8.56 H 0.55-4.78 uIU/mL Prothrombin Time 11.9 H 9.3-11.8 sec Prothrombin Time INR 1.14 0.9-1.15 Activated Partial Thromboplast Time 26.0 24.5-34.5 SEC Test 02/26/25 14:44 02/26/25 12:42 02/26/25 06:09 02/26/25 05:00 Range/Units Lactic Acid Level 3.0 *H 2.9 *H 1.0 0.4-2.0 mmol/L Sodium Level 141 136-145 mmol/L Potassium Level 3.4 L 3.5-5.1 mmol/L Chloride Level 109 H 98-107 mmol/L Carbon Dioxide Level 20 20-31 mmol/L Anion Gap 12 5-15 Blood Urea Nitrogen 13 9-23 mg/dL Creatinine 0.72 0.550-1.02 mg/dL Glomerular Filtration Rate Calc 92 >90 mL/min BUN/Creatinine Ratio 18.1 10.0-20.0 Serum Glucose 90 74-106 mg/dL Calcium Level 7.9 L 8.7-10.4 mg/dL Iron Level 36 L 50-170 ug/dL Total Iron Binding Capacity 291 250-425 ug/dL Percent Iron Saturation 12.4 L 15-50 % Ferritin 45.5 10-291 ng/mL Vitamin B12 Level 484 211-911 pg/mL White Blood Count 7.4 4.4-10.8 10^3/uL Red Blood Count 4.35 4.0-5.20 10^6/uL Hemoglobin 11.5 L 12.2-16.2 g/dL Hematocrit 36.6 # 36.0-46.0 % Mean Corpuscular Volume 84.2 80.0-100.0 fL Mean Corpuscular Hemoglobin 26.5 L 28.0-32.0 pg Mean Corpuscular Hemoglobin Concent 31.5 L 32.0-36.0 g/dL Red Cell Distribution Width 19.9 H 11.8-14.3 % Platelet Count 288 140-450 10^3/uL Mean Platelet Volume 7.0 6.9-10.8 fL Neutrophils (%) (Auto) 81.7 H 37.0-80.0 % Lymphocytes (%) (Auto) 8.7 L 10.0-50.0 % Monocytes (%) (Auto) 8.9 0.0-12.0 % Eosinophils (%) (Auto) 0.2 0.0-7.0 % Basophils (%) (Auto) 0.5 0.0-2.0 % Neutrophils # (Auto) 6.1 1.6-8.6 10 ^3/uL Lymphocytes # (Auto) 0.6 0.4-5.4 10 ^3/uL Monocytes # (Auto) 0.7 0-1.3 10 ^3/uL Eosinophils # (Auto) 0 0-0.8 10 ^3/uL Basophils # (Auto) 0 0-0.2 10 ^3/uL Nucleated Red Blood Cells 0.1 % Test 02/25/25 23:50 02/25/25 21:07 02/25/25 21:01 02/25/25 19:09 Range/Units Urine Color Colorless Yellow Urine Clarity Clear Clear Urine pH 6.0 5.0-9.0 Urine Specific [place] 1.005 1.001-1.035 Urine Protein Negative Negative Urine Ketones Negative Negative Urine Blood Negative Negative /uL Urine Nitrite Negative Negative Urine Bilirubin Negative Negative Urine Urobilinogen Normal Negative mg/dL Urine Leukocyte Esterase Negative Negative /uL Urine RBC <1 0 - 4 /hpf Urine Microscopic WBC 2 0-5 /HPF Urine Squamous Epithelial Cells Few <5 /hpf Urine Bacteria None seen None Seen /hpf Urine Glucose Normal Normal mg/dL Urine Opiates Screen Neg NEGATIVE Urine Fentanyl Screen Neg NEGATIVE Urine Barbiturates Screen Neg NEGATIVE Urine Phencyclidine Screen Neg NEGATIVE Urine Amphetamines Screen Pos NEGATIVE Urine Benzodiazepines Screen Neg NEGATIVE Urine Cocaine Screen Neg NEGATIVE Urine Cannabinoids Screen Neg NEGATIVE Lactic Acid Level 2.5 *H 2.1 *H 0.4-2.0 mmol/L Magnesium Level 2.0 1.6-2.6 mg/dL White Blood Count 8.7 4.4-10.8 10^3/uL Red Blood Count 5.03 4.0-5.20 10^6/uL Hemoglobin 13.4 12.2-16.2 g/dL Hematocrit 41.0 36.0-46.0 % Mean Corpuscular Volume 81.6 80.0-100.0 fL Mean Corpuscular Hemoglobin 26.7 L 28.0-32.0 pg Mean Corpuscular Hemoglobin Concent 32.8 32.0-36.0 g/dL Red Cell Distribution Width 19.4 H 11.8-14.3 % Platelet Count 398 140-450 10^3/uL Mean Platelet Volume 7.4 6.9-10.8 fL Neutrophils (%) (Auto) 81.2 H 37.0-80.0 % Lymphocytes (%) (Auto) 7.3 L 10.0-50.0 % Monocytes (%) (Auto) 10.3 0.0-12.0 % Eosinophils (%) (Auto) 0.5 0.0-7.0 % Basophils (%) (Auto) 0.7 0.0-2.0 % Neutrophils # (Auto) 7.0 1.6-8.6 10 ^3/uL Lymphocytes # (Auto) 0.6 0.4-5.4 10 ^3/uL Monocytes # (Auto) 0.9 0-1.3 10 ^3/uL Eosinophils # (Auto) 0 0-0.8 10 ^3/uL Basophils # (Auto) 0.1 0-0.2 10 ^3/uL Nucleated Red Blood Cells 0.1 % Sodium Level 138 136-145 mmol/L Potassium Level 3.3 L 3.5-5.1 mmol/L Chloride Level 102 98-107 mmol/L Carbon Dioxide Level 23 20-31 mmol/L Anion Gap 13 5-15 Blood Urea Nitrogen 15 9-23 mg/dL Creatinine 0.98 0.550-1.02 mg/dL Glomerular Filtration Rate Calc 64 >90 mL/min BUN/Creatinine Ratio 15.3 10.0-20.0 Serum Glucose 100 74-106 mg/dL Calcium Level 9.4 8.7-10.4 mg/dL Total Bilirubin 0.8 0.2-1.0 mg/dL Aspartate Amino Transferase (AST) 37 13-40 U/L Alanine Aminotransferase (ALT) 23 7-40 U/L Alkaline Phosphatase 92 46-116 U/L Total Protein 7.3 5.7-8.2 g/dL Albumin 4.0 3.2-4.8 g/dL Microbiology Date/Time Source Procedure Growth Status 02/26/25 03:43 Nose MRSA Screen - Final Complete Assessment Acute kidney injury secondary hemodynamic mediated Acute respiratory failure, patient intubated on ventilator Septic shock Hypokalemia due to potassium depletion Hypochloremic Metabolic alkalosis due to excessive diuresis Elevated AST and ALT Hypoalbuminemia Hyperglycemia Methamphetamine abuse Chronic systolic Congestive heart failure, ejection fraction 15-20% AICD Influenza B positive Hiatal hernia Recommendations Closely monitor fluid and electrolytes Avoid nephrotoxic medications Henriquez catheter Strict I&Os Discontinue IV bicarb Aggressive KCL replacement Insulin sliding scale Discontinue furosemide IV antibiotics IV pressors for blood pressure support Check urine electrolytes Kidneys reported within normal limit on CT scan of the abdomen We will continue to follow Patient seen and examined by myself. I discussed my plan of care with the pr imary nurse at the bedside I would like to thank Dr. Sanderson for the consult, will follow Total critical care time 45 minutes Plan discussed with: Other (Nurse) SUNDAR NOVOA MD Mar 05, 2025 10:29
[2025-03-05] MEDS: POTASSIUM EFFERVESENT TAB 25 MEQ GT ONE (10:56)
[2025-03-05] MEDS: DOPamine 1600MCG/ML D5W 250 ML IV SCH (10:57)
[2025-03-05] MEDS: ALBUMIN 25% 100 ML IV SCH (10:57)
--- NOTE | 2025-03-05 11:45 | DVHPN2 ---
Subjective Transient AFib, now in sinus rhythm Still on vasopressors for BP support Reviewed: Care Plan Changes from previous H/P or p: No Changes Objective Vitals Vital Signs Date Time Temp Pulse Resp B/P (MAP) Pulse Ox O2 Delivery O2 Flow Rate FiO2 03/05/25 11:27 112 24 134/42 (72) 96 35 03/05/25 10:03 Mechanical Ventilator+ 03/05/25 09:45 96.6 205.9 03/04/25 20:00 0 Intake/Output Intake and Output 03/05/25 06:59 Intake Total 4383.797 ml Output Total 4200 ml Balance 183.797 ml Intake Oral 0 ml IV Total 4383.797 ml Output Urine Total 4200 ml Medications Current Medications Medications Dose Ordered Sig/Jose Luis Route Start Time Stop Time Status Last Admin Dose Admin Azithromycin 250 ml @ 125 mls/hr DAILY IV 02/26/25 10:00 03/05/25 07:27 125 MLS/HR Ondansetron HCl 4 mg Q6HP PRN IV 02/25/25 23:00 02/27/25 17:24 4 MG Morphine Sulfate 2 mg Q6HP PRN IV 02/25/25 23:00 02/26/25 02:50 2 MG Pantoprazole Sodium 40 mg DAILY IV 02/26/25 10:00 03/05/25 07:28 40 MG Acetaminophen/ Hydrocodone Bitart 1 tab Q6HPRN PRN PO 02/25/25 23:00 03/03/25 09:58 1 TAB Acetaminophen 650 mg Q6HPRN PRN PO 02/25/25 23:00 02/26/25 02:51 650 MG Lorazepam 1 mg Q6HP PRN PO 02/27/25 16:10 03/03/25 05:19 1 MG Guaifenesin 200 mg Q4HP PRN PO 02/28/25 15:00 03/03/25 05:19 200 MG Albuterol 2.5 mg Q4HWA NEB 02/28/25 18:00 03/05/25 11:12 2.5 MG Ipratropium [place] 0.5 mg Q4HWA NEB 02/28/25 18:00 03/05/25 11:12 0.5 MG Albuterol 2.5 mg Q2HPRN PRN NEB 02/28/25 16:00 03/01/25 03:40 2.5 MG Ipratropium [place] 0.5 mg Q2HPRN PRN NEB 02/28/25 16:00 03/01/25 03:40 0.5 MG Aspirin 81 mg DAILY PO 03/02/25 10:00 03/05/25 07:28 81 MG Propofol 100 ml @ 1.854 mls/ hr Q24H IV 03/03/25 16:15 Midazolam HCl 50 ml @ 1 mls/hr Q24H IV 03/03/25 16:15 03/05/25 04:40 4 MLS/HR Fentanyl Citrate 250 ml @ 2.5 mls/hr Q24H IV 03/03/25 16:15 03/04/25 15:45 10 MLS/HR Norepinephrine Bitartrate 32 mg/ Sodium Chloride 250 ml @ 0.938 mls/ hr Q24H IV 03/03/25 17:30 03/04/25 20:57 7.5 MLS/HR Vasopressin 20 units/Sodium Chloride 100 ml @ 9 mls/hr Q11H7M IV 03/03/25 17:30 03/05/25 04:34 9 MLS/HR Vancomycin HCl 0 ml @ 0 mls/hr UD IV 03/03/25 18:45 UNV Piperacillin Sod/ Tazobactam Sod 100 ml @ 25 mls/hr Q8HR IV 03/03/25 22:00 03/05/25 05:33 25 MLS/HR Linezolid 300 ml @ 150 mls/hr Q12HR IV 03/03/25 22:00 03/05/25 07:27 150 MLS/HR Enoxaparin Sodium 60 mg DAILY SC 03/04/25 10:00 03/05/25 07:28 60 MG Lactulose 30 ml DAILY PO 03/04/25 10:00 03/05/25 07:28 30 ML Enteral Nutritional Formula 1,000 ml 30ML/HR GT 03/04/25 14:15 Hydrocortisone Sodium Succinate 100 mg Q8HR IV 03/04/25 22:00 03/05/25 05:33 100 MG Dopamine HCl/ Dextrose 250 ml @ 4.673 mls/ hr Q24H IV 03/05/25 10:15 03/05/25 10:57 4.673 MLS/HR Albumin Human 100 ml @ 100 mls/hr Q8H IV 03/05/25 10:30 03/06/25 03:29 03/05/25 10:57 100 MLS/HR Magnesium Sulfate/ Dextrose 100 ml @ 100 mls/hr Q1HR IV 03/05/25 12:00 03/05/25 13:59 UNV Laboratory Results Laboratory Tests 03/05/25 02:00 Chemistry Test 03/05/25 02:00 Albumin 2.6 g/dL (3.2-4.8) L Calcium Level 7.8 mg/dL (8.7-10.4) L Magnesium Level Pending Phosphorus Level Pending Total Protein 5.3 g/dL (5.7-8.2) L Cardiac Markers Test 03/05/25 02:00 B-Type Natriuretic Peptide Pending LFT Test 03/05/25 02:00 Alanine Aminotransferase (ALT) 497 U/L (7-40) H Alkaline Phosphatase 108 U/L (46-116) Aspartate Amino Transferase (AST) 675 U/L (13-40) H Total Bilirubin 1.0 mg/dL (0.2-1.0) Urinalysis Test 02/25/25 23:50 Urine Color Colorless (Yellow) Urine Clarity Clear (Clear) Urine pH 6.0 (5.0-9.0) Urine Specific [place] 1.005 (1.001-1.035) Urine Protein Negative (Negative) Urine Ketones Negative (Negative) Urine Blood Negative /uL (Negative) Urine Nitrite Negative (Negative) Urine Bilirubin Negative (Negative) Urine Urobilinogen Normal mg/dL (Negative) Urine Leukocyte Esterase Negative /uL (Negative) Urine RBC <1 /hpf (0 - 4) Urine Microscopic WBC 2 /HPF (0-5) Urine Squamous Epithelial Cells Few /hpf (<5) Urine Bacteria None seen /hpf (None Seen) Urine Glucose Normal mg/dL (Normal) Blood Gas Results Test 03/05/25 06:34 Arterial Blood pH 7.524 (7.350-7.450) FiO2 % 35.0 Microbiology Microbiology Date/Time Source Procedure Growth Status 03/03/25 22:09 Urine - [place] Urine Culture - Preliminary Resulted 03/03/25 19:15 Blood Blood Culture - Preliminary NO GROWTH AFTER 24 HOURS OF INCUBATION. Resulted 02/26/25 03:43 Nose MRSA Screen - Final Complete Assessment/Plan Assessment/Plan Chronic HFrEF, NYHA class III Apical thrombus Severe coronary artery disease with questionable stent placement Ischemic cardiomyopathy Presence of ICD ([employer]tr[employer]) Septic shock History myocardial infarction Hypertension Dyslipidemia Acute hypoxic respiratory failure secondary to pneumonia Pulmonary hypertension, severe degree COPD Transaminitis Hyperkalemia Acute kidney injury Thyroid disease Methamphetamine abuse Tobacco use Medical noncompliance Plan/Recommendations (Dr. Darden): 03/04/25 --daughter at the bedside updated with cardiology plan of care. All questions were answered. Close cardiac surveillance. * Transthoracic echocardiogram reveals EF 15-20% with apical thrombus. * Continue therapeutic Lovenox, transition to DOAC with Eliquis prior to discharge * Continue vasopressors for hemodynamic support (Quad concentration to prevent fluid overload) * Unable to continue guideline directed medical therapy for CHF given vasopressor support * Strict intake and output, daily weights, maintain fluid restriction * Antiplatelet therapy * Resume lipid-lowering agent with improved liver enzymes * Close cardiac surveillance * Antibiotics per primary care team Case discussed with . Transthoracic echocardiogram revealed an apical thrombus. Per guideline recommendations, Coumadin therapy is recommended. Given patient medical noncompliance and chronic meth use, doubt patient will be compliant with Coumadin Clinic. We will recommend off-label use of NOAC therapy Eliquis. Today, on 03/03/2025, the patient went into respiratory distress while on the telemetry floor requiring endotracheal intubation. At the time of assessment, the patient is now in the intensive care unit mechanically ventilated and chemically sedated. Patient also on vasopressor support for hemodynamic stability. Thank you for allowing us to care for this patient. Please call with any questions or concerns. Critical care time spent: 38 minutes. This medical document was created using an electronic medical record system with voice recognition software and computerized dictation system. Although this document has been carefully reviewed, there might still be some phonetic and typographical errors. Occasional wrong-word or ``sound-alike substitutions may have occurred due to the inherent limitations of voice recognition software. These areas are purely typographical due to imperfections of the software programs and do not reflect any compromise in the patient's medical care. Please read the chart carefully and recognize, using context, where these substitutions have occurred. Plan discussed with: Other (Bedside RN) Plan discussed with: Patient, Other (RN) My Orders Orders - DASHA MARIA FITTER ARMAMENT Procedure Category Date Status Time B-Type Natriuretic LAB 03/05/25 In Process Peptide 10:44 Date of Service: Mar 05, 2025 Billing Provider: SABRA DARDEN Sr., MD Common Visit Codes: CONSULT ONLY Consultation Codes: [id number] CONSULT <45MIN DASHA MARIA FITTER ARMAMENT Mar 05, 2025 11:45
[2025-03-05] MEDS: MAGNESIUM SULFATE 1GM/100ML 100 ML IV SCH (12:42)
--- NOTE | 2025-03-05 12:44 | DVHPN2 ---
Progress Note - Dictate Date Seen: Mar 05, 2025 Medical Necessity Reason Pt with a Central, PICC or Fol: No vital signs Vital Sign Date Time Temp Pulse Resp B/P (MAP) Pulse Ox O2 Delivery O2 Flow Rate FiO2 03/05/25 12:07 35 03/05/25 12:06 24 97 Mechanical Ventilator+ 03/05/25 12:00 97.5 130 140/101 (114) 97.5 03/05/25 08:00 0 Total Intake and Output 03/04/25 03/04/25 03/05/25 15:00 23:00 07:00 Intake Total 1799.728 ml 1302.753 ml 1378.504 ml Output Total 1500 ml 2700 ml Balance 1799.728 ml -197.247 ml -1321.496 ml medications Current Medications Medications Dose Ordered Sig/Jose Luis Route Start Time Stop Time Status Last Admin Dose Admin Azithromycin 250 ml @ 125 mls/hr DAILY IV 02/26/25 10:00 03/05/25 07:27 125 MLS/HR Ondansetron HCl 4 mg Q6HP PRN IV 02/25/25 23:00 02/27/25 17:24 4 MG Morphine Sulfate 2 mg Q6HP PRN IV 02/25/25 23:00 02/26/25 02:50 2 MG Pantoprazole Sodium 40 mg DAILY IV 02/26/25 10:00 03/05/25 07:28 40 MG Acetaminophen/ Hydrocodone Bitart 1 tab Q6HPRN PRN PO 02/25/25 23:00 03/03/25 09:58 1 TAB Acetaminophen 650 mg Q6HPRN PRN PO 02/25/25 23:00 02/26/25 02:51 650 MG Lorazepam 1 mg Q6HP PRN PO 02/27/25 16:10 03/03/25 05:19 1 MG Guaifenesin 200 mg Q4HP PRN PO 02/28/25 15:00 03/03/25 05:19 200 MG Albuterol 2.5 mg Q4HWA NEB 02/28/25 18:00 03/05/25 11:12 2.5 MG Ipratropium [place] 0.5 mg Q4HWA NEB 02/28/25 18:00 03/05/25 11:12 0.5 MG Albuterol 2.5 mg Q2HPRN PRN NEB 02/28/25 16:00 03/01/25 03:40 2.5 MG Ipratropium [place] 0.5 mg Q2HPRN PRN NEB 02/28/25 16:00 03/01/25 03:40 0.5 MG Aspirin 81 mg DAILY PO 03/02/25 10:00 03/05/25 07:28 81 MG Propofol 100 ml @ 1.854 mls/ hr Q24H IV 03/03/25 16:15 Midazolam HCl 50 ml @ 1 mls/hr Q24H IV 03/03/25 16:15 03/05/25 04:40 4 MLS/HR Fentanyl Citrate 250 ml @ 2.5 mls/hr Q24H IV 03/03/25 16:15 03/04/25 15:45 10 MLS/HR Norepinephrine Bitartrate 32 mg/ Sodium Chloride 250 ml @ 0.938 mls/ hr Q24H IV 03/03/25 17:30 03/04/25 20:57 7.5 MLS/HR Vasopressin 20 units/Sodium Chloride 100 ml @ 9 mls/hr Q11H7M IV 03/03/25 17:30 03/05/25 04:34 9 MLS/HR Vancomycin HCl 0 ml @ 0 mls/hr UD IV 03/03/25 18:45 UNV Piperacillin Sod/ Tazobactam Sod 100 ml @ 25 mls/hr Q8HR IV 03/03/25 22:00 03/05/25 05:33 25 MLS/HR Linezolid 300 ml @ 150 mls/hr Q12HR IV 03/03/25 22:00 03/05/25 07:27 150 MLS/HR Enoxaparin Sodium 60 mg DAILY SC 03/04/25 10:00 03/05/25 07:28 60 MG Lactulose 30 ml DAILY PO 03/04/25 10:00 03/05/25 07:28 30 ML Enteral Nutritional Formula 1,000 ml 30ML/HR GT 03/04/25 14:15 Hydrocortisone Sodium Succinate 100 mg Q8HR IV 03/04/25 22:00 03/05/25 05:33 100 MG Dopamine HCl/ Dextrose 250 ml @ 4.673 mls/ hr Q24H IV 03/05/25 10:15 03/05/25 10:57 4.673 MLS/HR Albumin Human 100 ml @ 100 mls/hr Q8H IV 03/05/25 10:30 03/06/25 03:29 03/05/25 10:57 100 MLS/HR Magnesium Sulfate/ Dextrose 100 ml @ 100 mls/hr Q1HR IV 03/05/25 12:00 03/05/25 13:59 laboratory and microbiology Laboratory Tests 03/05/25 02:00 Test 03/05/25 02:00 Range/Units Serum Glucose 187 H 74-106 mg/dL Assessment/Plan Patient is seen and examined in the ICU Diagnosis Influenza B Pneumonia Acute hypoxemic respiratory failure Renal failure Metabolic acidosis Patient seen and examined in ICU Events Remains on the ventilator S/p intubation PEEP 5, FiO2 30% On low dose Levophed drip Slightly improving Making urine Chest x-ray reviewed ABG reviewed Shows rebound alkalosis, mixed Management plan Continue vent support Sedation was needed Re-evaluate in AM Daily ABGs and x-rays Continue bicarb drip and antibiotics Prognosis poor Family updated Echo care time 35 minutes Dietary Evaluation Review Comments: 1) Liberalizing to 2gm Na diet 2) Monitor PO intake, lab values, weight trend, and I/O Expected Outcomes/Goals: To meet >75% estimated needs Fu 3-5 days Plan discussed with: Other (Rn) EVANS UGARTE MD Mar 05, 2025 12:44
[2025-03-05 12:50] LABS: Protein, Urine 14.7 mg/dL (1-14)
[2025-03-05 12:56] LABS: Urine Budding Yeast FEW /hpf (None Seen); Urine Protein, UAD Negative (Negative)
--- NOTE | 2025-03-05 16:22 | DVHPN2 ---
Progress Note - Dictate Date Seen: Mar 05, 2025 Medical Necessity Reason Pt with a Central, PICC or Fol: No Subjective Patient was seen in [facility] still intubated sedated Liver enzymes are trending down She had moderate elevation in liver enzymes likely related to hypoxic liver injury or shock liver Renal function is improving Ejection fraction is 15% and she is diagnosed with the apical thrombus Patient history of severe coronary artery disease She also had mild diffuse abdominal pain and other chronic pain syndrome Patient has cholelithiasis with a HIDA scan was negative vital signs Vital Sign Date Time Temp Pulse Resp B/P (MAP) Pulse Ox O2 Delivery O2 Flow Rate FiO2 03/05/25 16:13 40 03/05/25 16:12 24 94 Mechanical Ventilator+ 03/05/25 16:00 98.8 117 108/70 (83) 209.8 03/05/25 08:00 0 Total Intake and Output 03/04/25 03/04/25 03/05/25 15:00 23:00 07:00 Intake Total 1799.728 ml 1302.753 ml 1378.504 ml Output Total 1500 ml 2700 ml Balance 1799.728 ml -197.247 ml -1321.496 ml medications Current Medications Medications Dose Ordered Sig/Jose Luis Route Start Time Stop Time Status Last Admin Dose Admin Azithromycin 250 ml @ 125 mls/hr DAILY IV 02/26/25 10:00 03/05/25 07:27 125 MLS/HR Ondansetron HCl 4 mg Q6HP PRN IV 02/25/25 23:00 02/27/25 17:24 4 MG Morphine Sulfate 2 mg Q6HP PRN IV 02/25/25 23:00 02/26/25 02:50 2 MG Pantoprazole Sodium 40 mg DAILY IV 02/26/25 10:00 03/05/25 07:28 40 MG Acetaminophen/ Hydrocodone Bitart 1 tab Q6HPRN PRN PO 02/25/25 23:00 03/03/25 09:58 1 TAB Acetaminophen 650 mg Q6HPRN PRN PO 02/25/25 23:00 02/26/25 02:51 650 MG Lorazepam 1 mg Q6HP PRN PO 02/27/25 16:10 03/03/25 05:19 1 MG Guaifenesin 200 mg Q4HP PRN PO 02/28/25 15:00 03/03/25 05:19 200 MG Albuterol 2.5 mg Q4HWA [facility] 02/28/25 18:00 03/05/25 13:57 2.5 MG Ipratropium [place] 0.5 mg Q4HWA [facility] 02/28/25 18:00 03/05/25 13:57 0.5 MG Albuterol 2.5 mg Q2HPRN PRN [facility] 02/28/25 16:00 03/01/25 03:40 2.5 MG Ipratropium [place] 0.5 mg Q2HPRN PRN [facility] 02/28/25 16:00 03/01/25 03:40 0.5 MG Aspirin 81 mg DAILY PO 03/02/25 10:00 03/05/25 07:28 81 MG Propofol 100 ml @ 1.854 mls/ hr Q24H IV 03/03/25 16:15 Midazolam HCl 50 ml @ 1 mls/hr Q24H IV 03/03/25 16:15 03/05/25 12:42 4 MLS/HR Fentanyl Citrate 250 ml @ 2.5 mls/hr Q24H IV 03/03/25 16:15 03/05/25 12:43 10 MLS/HR Norepinephrine Bitartrate 32 mg/ Sodium Chloride 250 ml @ 0.938 mls/ hr Q24H IV 03/03/25 17:30 03/04/25 20:57 7.5 MLS/HR Vasopressin 20 units/Sodium Chloride 100 ml @ 9 mls/hr Q11H7M IV 03/03/25 17:30 03/05/25 04:34 9 MLS/HR Vancomycin HCl 0 ml @ 0 mls/hr UD IV 03/03/25 18:45 UNV Piperacillin Sod/ Tazobactam Sod 100 ml @ 25 mls/hr Q8HR IV 03/03/25 22:00 03/05/25 12:43 25 MLS/HR Linezolid 300 ml @ 150 mls/hr Q12HR IV 03/03/25 22:00 03/05/25 07:27 150 MLS/HR Enoxaparin Sodium 60 mg DAILY SC 03/04/25 10:00 03/05/25 07:28 60 MG Lactulose 30 ml DAILY PO 03/04/25 10:00 03/05/25 07:28 30 ML Enteral Nutritional Formula 1,000 ml 30ML/HR GT 03/04/25 14:15 Hydrocortisone Sodium Succinate 100 mg Q8HR IV 03/04/25 22:00 03/05/25 12:42 100 MG Dopamine HCl/ Dextrose 250 ml @ 4.673 mls/ hr Q24H IV 03/05/25 10:15 03/05/25 10:57 4.673 MLS/HR Albumin Human 100 ml @ 100 mls/hr Q8H IV 03/05/25 10:30 03/06/25 03:29 03/05/25 10:57 100 MLS/HR Metoclopramide HCl 10 mg Q8HR IV 03/05/25 22:00 objective HEENT pupils are reactive Neck is supple oxygen supplementation at the time of my visit at 4:00 p.m. CV is S1-S2 regular rate and rhythm Respiratory diminished breath sounds bases GI positive bowel sound Extremity no edema INTAKE COUNSELOR no motor deficit laboratory and microbiology Laboratory Tests 03/05/25 02:00 Test 03/05/25 02:00 Range/Units Serum Glucose 187 H 74-106 mg/dL Problems(with codes): (1) Influenza B (2) Elevated liver enzymes (3) Amphetamine abuse (4) Hiatal hernia (5) Abdominal pain (6) Acute pancreatitis (7) Pneumonia (8) Cholelithiasis (9) CHF (congestive heart failure) Prognosis Plan Continue supportive care Continue to monitor labs Advance enteral tube feedings I will follow up patient with you Dietary Evaluation Review Comments: 1) Liberalizing to 2gm Na diet 2) Monitor PO intake, lab values, weight trend, and I/O Expected Outcomes/Goals: To meet >75% estimated needs Fu 3-5 days Plan discussed with: Other ([facility] Nurse) TRACY FORD MD Mar 05, 2025 16:21
[2025-03-05 16:35] LABS: Magnesium 2.3 mg/dL (1.6-2.6)
[2025-03-05 17:07] LABS: Potassium 3.3 mmol/L (3.5-5.1)
--- NOTE | 2025-03-05 17:32 | DVHPN2 ---
Subjective Patient has remained intubated and sedated, currently on low dose of vasopressin, Levophed is off, Lasix has been discontinued as per Nephrology. Patient has a good amount of urine output currently on dopamine drip. Daughter was updated at bedside. Reviewed: Care Plan Changes from previous H/P or p: No Changes Objective Vitals Vital Signs Date Time Temp Pulse Resp B/P (MAP) Pulse Ox O2 Delivery O2 Flow Rate FiO2 03/05/25 17:15 98.6 117 24 107/71 (83) 94 209.5 03/05/25 16:13 40 03/05/25 16:12 Mechanical Ventilator+ 03/05/25 08:00 0 Intake/Output Intake and Output 03/05/25 07:00 Intake Total 4480.985 ml Output Total 4200 ml Balance 280.985 ml Intake Oral 0 ml IV Total 4480.985 ml Output Urine Total 4200 ml Exam HEENT pupils are reactive Neck is supple CV is S1-S2 regular rate and rhythm Respiratory diminished breath sounds bases , bilateral basal crackles GI positive bowel sound Extremity no edema [place] DAUBER intubated and sedated Medications Current Medications Medications Dose Ordered Sig/Jose Luis Route Start Time Stop Time Status Last Admin Dose Admin Azithromycin 250 ml @ 125 mls/hr DAILY IV 02/26/25 10:00 03/05/25 07:27 125 MLS/HR Ondansetron HCl 4 mg Q6HP PRN IV 02/25/25 23:00 02/27/25 17:24 4 MG Morphine Sulfate 2 mg Q6HP PRN IV 02/25/25 23:00 02/26/25 02:50 2 MG Pantoprazole Sodium 40 mg DAILY IV 02/26/25 10:00 03/05/25 07:28 40 MG Acetaminophen/ Hydrocodone Bitart 1 tab Q6HPRN PRN PO 02/25/25 23:00 03/03/25 09:58 1 TAB Acetaminophen 650 mg Q6HPRN PRN PO 02/25/25 23:00 02/26/25 02:51 650 MG Lorazepam 1 mg Q6HP PRN PO 02/27/25 16:10 03/03/25 05:19 1 MG Guaifenesin 200 mg Q4HP PRN PO 02/28/25 15:00 03/03/25 05:19 200 MG Albuterol 2.5 mg Q4HWA NEB 02/28/25 18:00 03/05/25 13:57 2.5 MG Ipratropium [place] 0.5 mg Q4HWA [facility] 02/28/25 18:00 03/05/25 13:57 0.5 MG Albuterol 2.5 mg Q2HPRN PRN [facility] 02/28/25 16:00 03/01/25 03:40 2.5 MG Ipratropium [place] 0.5 mg Q2HPRN PRN [facility] 02/28/25 16:00 03/01/25 03:40 0.5 MG Aspirin 81 mg DAILY PO 03/02/25 10:00 03/05/25 07:28 81 MG Propofol 100 ml @ 1.854 mls/ hr Q24H IV 03/03/25 16:15 Midazolam HCl 50 ml @ 1 mls/hr Q24H IV 03/03/25 16:15 03/05/25 12:42 4 MLS/HR Fentanyl Citrate 250 ml @ 2.5 mls/hr Q24H IV 03/03/25 16:15 03/05/25 12:43 10 MLS/HR Norepinephrine Bitartrate 32 mg/ Sodium Chloride 250 ml @ 0.938 mls/ hr Q24H IV 03/03/25 17:30 03/04/25 20:57 7.5 MLS/HR Vasopressin 20 units/Sodium Chloride 100 ml @ 9 mls/hr Q11H7M IV 03/03/25 17:30 03/05/25 16:34 9 MLS/HR Vancomycin HCl 0 ml @ 0 mls/hr UD IV 03/03/25 18:45 UNV Piperacillin Sod/ Tazobactam Sod 100 ml @ 25 mls/hr Q8HR IV 03/03/25 22:00 03/05/25 12:43 25 MLS/HR Linezolid 300 ml @ 150 mls/hr Q12HR IV 03/03/25 22:00 03/05/25 07:27 150 MLS/HR Enoxaparin Sodium 60 mg DAILY SC 03/04/25 10:00 03/05/25 07:28 60 MG Lactulose 30 ml DAILY PO 03/04/25 10:00 03/05/25 07:28 30 ML Enteral Nutritional Formula 1,000 ml 30ML/HR GT 03/04/25 14:15 Hydrocortisone Sodium Succinate 100 mg Q8HR IV 03/04/25 22:00 03/05/25 12:42 100 MG Dopamine HCl/ Dextrose 250 ml @ 4.673 mls/ hr Q24H IV 03/05/25 10:15 03/05/25 10:57 4.673 MLS/HR Albumin Human 100 ml @ 100 mls/hr Q8H IV 03/05/25 10:30 03/06/25 03:29 03/05/25 10:57 100 MLS/HR Metoclopramide HCl 10 mg Q8HR IV 03/05/25 22:00 Laboratory Results Laboratory Tests 03/05/25 02:00 03/05/25 16:07 Chemistry Test 03/05/25 02:00 03/05/25 16:07 Albumin 2.6 g/dL (3.2-4.8) L Calcium Level 7.8 mg/dL (8.7-10.4) L Magnesium Level 1.8 mg/dL (1.6-2.6) 2.3 mg/dL (1.6-2.6) Phosphorus Level 3.4 mg/dL (2.4-5.1) Total Protein 5.3 g/dL (5.7-8.2) L Cardiac Markers Test 03/05/25 02:00 B-Type Natriuretic Peptide 558.07 pg/mL (0-100) LFT Test 03/05/25 02:00 Alanine Aminotransferase (ALT) 497 U/L (7-40) H Alkaline Phosphatase 108 U/L (46-116) Aspartate Amino Transferase (AST) 675 U/L (13-40) H Total Bilirubin 1.0 mg/dL (0.2-1.0) Urinalysis Test 03/05/25 10:40 Urine Color Light-yellow (Yellow) Urine Clarity Clear (Clear) Urine pH 7.0 (5.0-9.0) Urine Specific [place] 1.009 (1.001-1.035) Urine Protein Negative (Negative) Urine Ketones Negative (Negative) Urine Blood Negative /uL (Negative) Urine Nitrite Negative (Negative) Urine Bilirubin Negative (Negative) Urine Urobilinogen Normal mg/dL (Negative) Urine Leukocyte Esterase Negative /uL (Negative) Urine RBC 1 /hpf (0 - 4) Urine Microscopic WBC 1 /HPF (0-5) Urine Squamous Epithelial Cells None seen /hpf (<5) Urine Bacteria None seen /hpf (None Seen) Urine Yeast ([place]) Few /hpf (None Seen) Urine Creatinine 11.91 mg/dL (30.0-125.0) L Urine Protein/Creatinine Ratio 1.23 Urine Sodium 77 mmol/L (40-220) Urine Glucose 4+ mg/dL (Normal) H Urine Total Protein 14.7 mg/dL (1-14) H Blood Gas Results Test 03/05/25 06:34 Arterial Blood pH 7.524 (7.350-7.450) FiO2 % 35.0 Microbiology Microbiology Date/Time Source Procedure Growth Status 03/03/25 22:09 Urine - [place] Urine Culture - Preliminary Resulted 03/03/25 19:15 Blood Blood Culture - Preliminary NO GROWTH AFTER 24 HOURS OF INCUBATION. Resulted 02/26/25 03:43 Nose MRSA Screen - Final Complete Assessment/Plan Assessment/Plan 64-year-old female with a known history of pulmonary hypertension, ischemic cardiomyopathy, CAD status post PCI, COPD, chronic meth use presented to the hospital with the abdominal pain patient was found to have 1. acute hypoxic respiratory failure requiring intubation and mechanical ventilation 2. Abdominal pain, acute cholecystitis has been ruled out 3. Suspected pneumonia, on IV antibiotic 4. Acute on chronic congestive heart failure exacerbation with systolic dysfunction 5. Relative hypotension, currently on vasopressor 5. Chronic meth use 6. Acute kidney injury likely hemodynamically mediated, currently off of diuretics 7. Chronic tobacco use disorder/marijuana use -c patient is currently on intubated and sedated, on IV antibiotics follow up cultures, discontinue Lasix, monitor urine output, continue IV vasopressor -patient's remains critical prognosis remains guarded. -daughter updated at bedside. Plan discussed with: Daughter My Orders Orders - PING SANDERSON MD Procedure Category Date Status Time Mrsa Screen NISREEN 03/05/25 In Process 14:50 Metoclopramide PHA 03/05/25 In Process Injection (Reglan 22:00 Complete Blood Count LAB 03/06/25 Verified 04:00 Comprehensive LAB 03/06/25 Verified Metabolic Panel 04:00 Magnesium LAB 03/06/25 Verified 04:00 Chest Portable XY 03/06/25 Logged 04:00 Date of Service: Mar 05, 2025 Billing Provider: PING SANDERSON MD Common Visit Codes: NOT BILLABLE PING SANDERSON MD Mar 05, 2025 17:32
[2025-03-05] MEDS: METOCLOPRAMIDE HCL 5MG/ml INJ 2ml VIAL IV SCH (23:16)
[2025-03-05] MEDS: OSELTAMIVIR 30 MG CAP PO SCH (23:18)
[2025-03-06] VITALS (113 sets, daily range): BP systolic 53–153; BP diastolic 20–83; PULSE 104–119; RESP 10–24; TEMP 97–98.1; O2SAT 88–100
[2025-03-06 03:34] LABS: Nucleated Red Blood Cells % 0.2 %
[2025-03-06 03:36] LABS: Hematocrit 36.1 % (36.0-46.0); Hemoglobin 11.5 g/dL (12.2-16.2); Mean Corpuscular Hemoglobin 26.0 pg (28.0-32.0); Mean Corpuscular Volume 81.4 fL (80.0-100.0)
[2025-03-06 03:52] LABS: Albumin 3.6 g/dL (3.2-4.8); Alkaline Phosphatase 83 U/L (46-116); BUN/Creatinine Ratio 20.0 (10.0-20.0); Calcium 9.3 mg/dL (8.7-10.4); Magnesium 2.3 mg/dL (1.6-2.6); Potassium 4.4 mmol/L (3.5-5.1); Sodium 136 mmol/L (136-145); Total Protein 6.0 g/dL (5.7-8.2)
[2025-03-06 04:12] LABS: Alanine Aminotransferase 312 U/L (7-40); Anion Gap 8.99999 (5-15); Bilirubin, Total 1.6 mg/dL (0.2-1.0); Blood Urea Nitrogen 23 mg/dL (9-23); Chloride 87 mmol/L (98-107); Glucose 112 mg/dL (74-106)
[2025-03-06 04:14] LABS: Carbon Dioxide > 40 mmol/L (20-31)
--- NOTE | 2025-03-06 04:17 | DVH ---
CHEST RADIOGRAPH Indication: RESP FAILURE. Technique: Single frontal view of the chest was obtained Comparison: XY CHEST XRAY 1 VIEW on DOS: 03/05/25 FINDINGS: Lines and Tubes: AICD noted. The endotracheal tube terminates 4.7 cm above the hosea. The enteric t ube terminates in the stomach. Right central venous catheter with its tip terminating in the right at rium Lungs: Stable bibasilar airspace disease. Pleura: There are bilateral pleural effusions similar to prior study. No pneumothorax. Cardiomediastinal contours: Cardiomegaly noted. Bones: No acute osseous abnormality. IMPRESSION: 1. Stable position of the support lines and tubes. 2. Bilateral pleural effusions and bibasilar airspace disease.
[2025-03-06 07:38] LABS: Base Excess 13.3 mmol/L (-2.0-3.0)
--- NOTE | 2025-03-06 11:02 | DVHPN2 ---
Consult Progress Note Subjective Other Systems: Patient remains chemically sedated and mechanically ventilated at time of assessment. Objective vital signs Vital Sign Date Time Temp Pulse Resp B/P (MAP) Pulse Ox O2 Delivery O2 Flow Rate FiO2 03/06/25 09:54 111 24 130/69 (89) 99 40 03/06/25 08:30 97.5 207.5 03/06/25 08:00 Mechanical Ventilator+ 03/06/25 08:00 0 Total Intake and Output 03/05/25 03/05/25 03/06/25 14:59 22:59 06:59 Intake Total 1661.070 ml 788.384 ml 542.322 ml Output Total 1650 ml 1500 ml Balance 1661.070 ml -861.616 ml -957.678 ml medications Current Medications Medications Dose Ordered Sig/Jose Luis Route Start Time Stop Time Status Last Admin Dose Admin Azithromycin 250 ml @ 125 mls/hr DAILY IV 02/26/25 10:00 03/06/25 10:46 125 MLS/HR Ondansetron HCl 4 mg Q6HP PRN IV 02/25/25 23:00 02/27/25 17:24 4 MG Morphine Sulfate 2 mg Q6HP PRN IV 02/25/25 23:00 02/26/25 02:50 2 MG Pantoprazole Sodium 40 mg DAILY IV 02/26/25 10:00 03/06/25 10:46 40 MG Acetaminophen/ Hydrocodone Bitart 1 tab Q6HPRN PRN PO 02/25/25 23:00 03/03/25 09:58 1 TAB Acetaminophen 650 mg Q6HPRN PRN PO 02/25/25 23:00 02/26/25 02:51 650 MG Lorazepam 1 mg Q6HP PRN PO 02/27/25 16:10 03/03/25 05:19 1 MG Guaifenesin 200 mg Q4HP PRN PO 02/28/25 15:00 03/03/25 05:19 200 MG Albuterol 2.5 mg Q4HWA NEB 02/28/25 18:00 03/06/25 09:53 2.5 MG Ipratropium [place] 0.5 mg Q4HWA NEB 02/28/25 18:00 03/06/25 09:54 0.5 MG Albuterol 2.5 mg Q2HPRN PRN NEB 02/28/25 16:00 03/01/25 03:40 2.5 MG Ipratropium [place] 0.5 mg Q2HPRN PRN NEB 02/28/25 16:00 03/01/25 03:40 0.5 MG Aspirin 81 mg DAILY PO 03/02/25 10:00 03/06/25 10:47 81 MG Propofol 100 ml @ 1.854 mls/ hr Q24H IV 03/03/25 16:15 Midazolam HCl 50 ml @ 1 mls/hr Q24H IV 03/03/25 16:15 03/06/25 08:09 2 MLS/HR Fentanyl Citrate 250 ml @ 2.5 mls/hr Q24H IV 03/03/25 16:15 03/05/25 12:43 10 MLS/HR Norepinephrine Bitartrate 32 mg/ Sodium Chloride 250 ml @ 0.938 mls/ hr Q24H IV 03/03/25 17:30 03/05/25 23:19 0.938 MLS/HR Vasopressin 20 units/Sodium Chloride 100 ml @ 9 mls/hr Q11H7M IV 03/03/25 17:30 03/05/25 16:34 9 MLS/HR Vancomycin HCl 0 ml @ 0 mls/hr UD IV 03/03/25 18:45 UNV Piperacillin Sod/ Tazobactam Sod 100 ml @ 25 mls/hr Q8HR IV 03/03/25 22:00 03/05/25 23:17 25 MLS/HR Linezolid 300 ml @ 150 mls/hr Q12HR IV 03/03/25 22:00 03/06/25 10:00 150 MLS/HR Enoxaparin Sodium 60 mg DAILY SC 03/04/25 10:00 03/06/25 10:47 60 MG Lactulose 30 ml DAILY PO 03/04/25 10:00 03/06/25 10:47 30 ML Enteral Nutritional Formula 1,000 ml 30ML/HR GT 03/04/25 14:15 Hydrocortisone Sodium Succinate 100 mg Q8HR IV 03/04/25 22:00 03/06/25 06:00 100 MG Dopamine HCl/ Dextrose 250 ml @ 4.673 mls/ hr Q24H IV 03/05/25 10:15 03/05/25 10:57 4.673 MLS/HR Metoclopramide HCl 10 mg Q8HR IV 03/05/25 22:00 03/06/25 06:00 10 MG Oseltamivir Phosphate 30 mg Q12HR PO 03/05/25 22:00 03/10/25 21:59 03/06/25 10:47 30 MG Examination: GENERAL:Abnormal, LUNGS:Abnormal (Mechanically ventilated, Fio2 35%, PEEP 5.0), CVS:Normal, NEURO:Abnormal (Chemically sedated) laboratory and microbiology Laboratory Tests 03/06/25 02:40 Test 03/06/25 02:40 Range/Units Serum Glucose 112 H 74-106 mg/dL Problem List/Assessment/Plan Problem List/Assessment/Plan Chronic HFrEF, NYHA class III Apical thrombus Transient atrial fibrillation, now normal sinus rhythm Severe coronary artery disease with questionable stent placement Ischemic cardiomyopathy Presence of ICD ([employer]) Septic shock Hypertension Dyslipidemia Acute hypoxic respiratory failure secondary to pneumonia Influenza B positive Pulmonary hypertension, severe degree COPD Transaminitis Hyperkalemia Acute kidney injury Thyroid disease Methamphetamine abuse Tobacco use Medical noncompliance Plan/Recommendations (Dr. Gibbs): * Transthoracic echocardiogram reveals EF 15-20% with apical thrombus. * Continue therapeutic Lovenox, transition to DOAC with Eliquis prior to discharge * Continue vasopressors for hemodynamic support (Quad concentration to prevent fluid overload) * Unable to continue guideline directed medical therapy for CHF given vasopressor support * Strict intake and output, daily weights, maintain fluid restriction * Antiplatelet therapy * Resume lipid-lowering agent with improved liver enzymes * Close cardiac surveillance * Antibiotics per primary care team Case discussed with . Transthoracic echocardiogram revealed an apical thrombus. Per guideline recommendations, Coumadin therapy is recommended. Given patient medical noncompliance and chronic meth use, doubt patient will be compliant with Coumadin Clinic. We will recommend off-label use of NOAC therapy Eliquis. [id number] VASc score: 5 points, HAS-BLED score: 2 points. Continue therapeutic Lovenox while inpatient, consider DOAC prior to discharge. Unable to initiate beta-wanda for rate control given current vasopressor therapy. Thank you for allowing us to care for this patient. Please call with any questions or concerns. Critical care time spent: 38 minutes. This medical document was created using an electronic medical record system with voice recognition software and computerized dictation system. Although this document has been carefully reviewed, there might still be some phonetic and typographical errors. Occasional wrong-word or ``sound-alike substitutions may have occurred due to the inherent limitations of voice recognition software. These areas are purely typographical due to imperfections of the software programs and do not reflect any compromise in the patient's medical care. Please read the chart carefully and recognize, using context, where these substitutions have occurred. Plan discussed with: Other (Bedside RN) Dietary Evaluation Review Comments: 1) Liberalizing to 2gm Na diet 2) Monitor PO intake, lab values, weight trend, and I/O Expected Outcomes/Goals: To meet >75% estimated needs Fu 3-5 days Date of Service: Mar 06, 2025 Billing Provider: ADELSO HALL Common Visit Codes: [id number] CARE 30-74 MIN ADELSO HALL Mar 06, 2025 11:02
[2025-03-06 11:35] LABS: Hepatitis A Total Antibody Positive (Negative); Hepatitis B Surface Antigen Negative (Negative)
[2025-03-06 11:36] LABS: Hepatitis C Antibody Positive (Negative)
--- NOTE | 2025-03-06 11:43 | DVHINCON2 ---
Date of service: Mar 06, [address] Sanderson Reason for Consultation Influenza B History of Present Illness A 64-year-old female with history of chronic meth abuse is admitted in the hospital with acute hypoxic respiratory failure on mechanical ventilation. She has tested positive for influenza B and currently on Tamiflu. Patient is critically sick due to chronic heart failure with preserved EF, se ruth Pulmonary HTN ,coronary artery disease she is on multiple pressors due to CHF and kidney failure. h/o medical noncompliance, tobacco abuse Patient currently on Tamiflu Plan/Recommendations (Dr. Gibbs): * Transthoracic echocardiogram reveals EF 15-20% with apical thrombus. * Continue therapeutic Lovenox, transition to DOAC with Eliquis prior to d ischarge * Continue vasopressors for hemodynamic support (Quad concentration to prevent fluid overload) * Unable to continue guideline directed medical therapy for CHF given vasopressor support * Strict intake and output, daily weights, maintain fluid restriction * Antiplatelet therapy * Resume lipid-lowering agent with improved liver enzymes * Close cardiac surveillance * Antibiotics per primary care team Case discussed with . Transthoracic echocardiogram revealed an apical thrombus. Per guideline recommendations, Coumadin therapy is recommended. Given patient medical noncompliance and chronic meth use, doubt patient will be compliant with Coumadin Clinic. We will recommend off-label use of NOAC therapy Eliquis. [id number] VASc score: 5 points, HAS-BLED score: 2 points. Continue therapeutic Lovenox while inpatient, consider DOAC prior to discharge. Unable to initiate beta-wanda for rate control given current vasopressor therapy. Thank you for allowing us to care for this patient. Please call with any questions or concerns. Past Medical History PAST MEDICAL HISTORY: CAD, CHF, COPD, CVA, High Lipids, HTN, MA Past Surgical History Surgical History: Pacemaker, PTCA, Tonsillectomy, Tubal Ligation Allergies: Coded Allergies: NO KNOWN ALLERGIES (Unverified , 09/23/24) Family History: Alzheimer's disease G8 MOTHER, Onset:50's - 60 Depression G8 MOTHER, Onset:40's - 50 Hypertension G8 MOTHER, Onset:40's - 50 Allergies: Coded Allergies: NO KNOWN ALLERGIES (Unverified , 09/23/24) Home Meds Active Scripts Pantoprazole Sodium Sesquihydr (Protonix) 40 Mg Tab, 40 MG PO BID for 30 Days, #60 TAB Prov:PING SANDERSON MD 02/28/25 Acetaminophen (Acetaminophen) 500 Mg Tab, 500 MG PO Q4HP PRN, #30 TAB Prov:AZIZA KOCH PAC 12/30/24 Dicyclomine Hcl (BENTYL CAPSULE) 10 Mg Cp, 1 CAP PO Q6HP PRN, #20 CAP 0 Refills Prov:AZIZA KOCH PAC 12/30/24 Reported Medications Levothyroxine Sodium (Levothyroxine Sodium) 50 Mcg Tab, 50 MCG PO QAM for 30 Days, MCG 02/26/25 Sacubitril-Valsartan (Entresto 24-26 mg) 1 Tab Tab, 1 TAB PO DAILY for HF, TAB 09/23/24 Potassium Chloride (Klor-Con 8) 8 Meq Tab, 8 MEQ PO DAILY for SUPPLEMENT, TAB 09/23/24 Sildenafil Citrate (SILDENAFIL CITRATE) 20 Mg Tab, 20 MG PO DAILY@0900 for PULM ONARY HTN, TAB 04/29/24 Spironolactone (Spironolactone) 25 Mg Tab, 1 TAB PO DAILY for EDEMA/HTN 09/10/23 Clopidogrel Bisulfate (Plavix) 75 Mg Tab, 1 TAB PO DAILY for A.FIB 09/10/23 Aspirin (Aspirin Low Dose) 81 Mg Chw, 1 TAB PO DAILY for PREVENT BLOOD CLOTS 09/10/23 Furosemide (Furosemide) 40 Mg Tab, 1 TAB PO DAILY for EDEMA 09/10/23 Amiodarone Hcl (Amiodarone Hcl) 200 Mg Tab, 1 TAB PO DAILY for A.FIB 09/10/23 Current Medications Current Medications Medications (Trade) Dose Ordered Sig/Jose Luis Route PRN Reason Start Time Stop Time Status Last Admin Magnesium Sulfate/ Dextrose 100 ml @ 100 mls/hr Q1HR IV 03/05/25 12:00 03/05/25 13:59 DC 03/05/25 13:00 Metoclopramide HCl (Reglan Injection) 10 mg Q8HR IV 03/05/25 22:00 03/06/25 06:00 Oseltamivir Phosphate (Tamiflu 30MG Capsule) 30 mg Q12HR PO 03/05/25 22:00 03/10/25 21:59 03/06/25 10:47 Potassium Chloride 100 ml @ 50 mls/hr Q2H IV 03/05/25 17:45 03/05/25 21:44 DC 03/05/25 19:28 Review of Systems Unable to obtain Vital Signs Vital Signs Date Time Temp Pulse Resp B/P (MAP) Pulse Ox O2 Delivery O2 Flow Rate FiO2 03/06/25 11:37 114 24 112/57 (75) 94 35 03/06/25 08:30 97.5 207.5 03/06/25 08:00 Mechanical Ventilator+ 03/06/25 08:00 0 Physical Exam General intubated and sedated HEENT: Atraumatic,intubated Neck: No swelling Lungs: Equal air entry and clear to auscultation Cardiovascular: S1 S2 heard no murmur Abdomen: Soft nontender, no organomegaly, nondistended Neuro: sedated, unable to assess Psych: unable to assess Labs/Diagnostic Data Labs Test 03/06/25 07:15 03/06/25 02:40 03/05/25 21:00 03/05/25 10:40 Range/Units Blood Gas Specimen Type Arterial Blood Gas Sample Site Right radial Blood Gas Patient Temperature 37.0 Arterial Blood Date Drawn [id number] Arterial Blood pH 7.554 *H 7.350-7.450 Arterial Blood Partial Pressure CO2 42.9 32.0-45.0 mmHg Arterial Blood Partial Pressure O2 68.5 L 83.0-108.0 mmHg Arterial Blood HCO3 37.0 H 21.0-28.0 mmol/L Arterial Blood Oxygen Saturation 92.9 L 94.0-98.0 % Arterial Blood Base Excess 13.3 H -2.0-3.0 mmol/L Arterial Blood Oxyhemoglobin 91.9 L 94.0-98.0 % Arterial Blood Carboxyhemoglobin 0.7 0.5-1.5 % Arterial Blood Methemoglobin 0.4 0.0-1.5 % Sincere Test Modified Blood Gas Total Hemoglobin 12.60 12.0-16.0 g/dL Blood Gas Set Respiration Rate 24.0 Blood Gas Modality Vent - ac FiO2 % 40.0 Blood Gas Tidal Volume 400.0 Blood Gas PEEP or CPAP 5.0 Blood Gas Critical Value Read Back yes Blood Gas Notified Whom lonnie Rodriguez np Blood Gas Notified Time [id number] Blood Gas Notified By Steve landin i. White Blood Count 13.8 H 4.4-10.8 10^3/uL Red Blood Count 4.43 4.0-5.20 10^6/uL Hemoglobin 11.5 L 12.2-16.2 g/dL Hematocrit 36.1 # 36.0-46.0 % Mean Corpuscular Volume 81.4 80.0-100.0 fL Mean Corpuscular Hemoglobin 26.0 L 28.0-32.0 pg Mean Corpuscular Hemoglobin Concent 31.9 L 32.0-36.0 g/dL Red Cell Distribution Width 20.2 H 11.8-14.3 % Platelet Count 167 140-450 10^3/uL Mean Platelet Volume 8.1 6.9-10.8 fL Neutrophils (%) (Auto) 94.3 H 37.0-80.0 % Lymphocytes (%) (Auto) 1.6 L 10.0-50.0 % Monocytes (%) (Auto) 4.0 0.0-12.0 % Eosinophils (%) (Auto) 0.0 0.0-7.0 % Basophils (%) (Auto) 0.1 0.0-2.0 % Neutrophils # (Auto) 13.0 H 1.6-8.6 10 ^3/uL Lymphocytes # (Auto) 0.2 L 0.4-5.4 10 ^3/uL Monocytes # (Auto) 0.6 0-1.3 10 ^3/uL Eosinophils # (Auto) 0 0-0.8 10 ^3/uL Basophils # (Auto) 0 0-0.2 10 ^3/uL Nucleated Red Blood Cells 0.2 % Sodium Level 136 136-145 mmol/L Potassium Level 4.4 3.5-5.1 mmol/L Chloride Level 87 L 98-107 mmol/L Carbon Dioxide Level > 40 *H 20-31 mmol/L Anion Gap 8.36340 5-15 Blood Urea Nitrogen 23 9-23 mg/dL Creatinine 1.15 H 0.550-1.02 mg/dL Glomerular Filtration Rate Calc 53 >90 mL/min BUN/Creatinine Ratio 20.0 10.0-20.0 Serum Glucose 112 H 74-106 mg/dL Calcium Level 9.3 8.7-10.4 mg/dL Magnesium Level 2.3 1.6-2.6 mg/dL Total Bilirubin 1.6 H 0.2-1.0 mg/dL Aspartate Amino Transferase (AST) 355 H 13-40 U/L Alanine Aminotransferase (ALT) 312 H 7-40 U/L Alkaline Phosphatase 83 46-116 U/L Total Protein 6.0 5.7-8.2 g/dL Albumin 3.6 3.2-4.8 g/dL Lactic Acid Level 1.4 0.4-2.0 mmol/L Urine Color Light-yellow Yellow Urine Clarity Clear Clear Urine pH 7.0 5.0-9.0 Urine Specific [place] 1.009 1.001-1.035 Urine Protein Negative Negative Urine Ketones Negative Negative Urine Blood Negative Negative /uL Urine Nitrite Negative Negative Urine Bilirubin Negative Negative Urine Urobilinogen Normal Negative mg/dL Urine Leukocyte Esterase Negative Negative /uL Urine RBC 1 0 - 4 /hpf Urine Microscopic WBC 1 0-5 /HPF Urine Squamous Epithelial Cells None seen <5 /hpf Urine Bacteria None seen None Seen /hpf Urine Yeast (Budding) Few None Seen /hpf Urine Creatinine 11.91 L 30.0-125.0 mg/dL Urine Protein/Creatinine Ratio 1.23 Urine Sodium 77 40-220 mmol/L Urine Glucose 4+ H Normal mg/dL Urine Total Protein 14.7 H 1-14 mg/dL Test 03/05/25 02:00 03/04/25 07:29 03/04/25 03:17 03/03/25 20:01 Range/Units Phosphorus Level 3.4 2.4-5.1 mg/dL B-Type Natriuretic Peptide 558.07 0-100 pg/mL Parathyroid Hormone (Intact) 478.3 H 18.4-80.1 pg/mL Blood Gas Spontaneous Rate 24 Ammonia 15 11-32 umol/L Hepatitis A Antibody Total Positive H Negative Hepatitis B Surface Antigen Negative Negative Hepatitis B Surface Antibody Negative Negative Hepatitis B Core Total Antibody Negative Negative Hepatitis C Antibody Positive *A Negative Influenza Type A Antigen Negative Negative Influenza Type B Antigen Positive Negative SARS-CoV-2 Antigen (Rapid) Negative NEGATIVE Test 03/03/25 15:25 03/02/25 20:46 03/01/25 13:19 03/01/25 05:54 Range/Units Blood Gas Liter Flow 5.00 D-Dimer, Quantitative 17.76 H 0.0-0.49 mg/L FEU Free Thyroxine (T4) Calculated 1.07 0.89-1.76 ng/dL Free Triiodothyronine (T3) pg/mL 1.97 L 2.3-4.2 pg/mL Hemoglobin A1c 5.6 <5.7 % A1C C-Reactive Protein High Sensitivity 16.68 H <1.0 mg/dL Triglycerides Level 102 < 150 mg/dL Cholesterol Level 133 < 200 mg/dL LDL Cholesterol 98 < 100 mg/dL HDL Cholesterol 27 L 40-59 mg/dL Lipase 22 12-53 U/L Thyroid Stimulating Hormone (TSH) 8.56 H 0.55-4.78 uIU/mL Test 02/27/25 08:37 02/26/25 06:09 02/25/25 23:50 Range/Units Prothrombin Time 11.9 H 9.3-11.8 sec Prothrombin Time INR 1.14 0.9-1.15 Activated Partial Thromboplast Time 26.0 24.5-34.5 SEC Iron Level 36 L 50-170 ug/dL Total Iron Binding Capacity 291 250-425 ug/dL Percent Iron Saturation 12.4 L 15-50 % Ferritin 45.5 10-291 ng/mL Vitamin B12 Level 484 211-911 pg/mL Urine Opiates Screen Neg NEGATIVE Urine Fentanyl Screen Neg NEGATIVE Urine Barbiturates Screen Neg NEGATIVE Urine Phencyclidine Screen Neg NEGATIVE Urine Amphetamines Screen Pos NEGATIVE Urine Benzodiazepines Screen Neg NEGATIVE Urine Cocaine Screen Neg NEGATIVE Urine Cannabinoids Screen Neg NEGATIVE Microbiology Date/Time Source Procedure Growth Status 03/03/25 22:09 Urine - [place] Urine Culture - Preliminary Resulted 03/03/25 19:15 Blood Blood Culture - Preliminary NO GROWTH AFTER 48 HOURS OF INCUBATION. Resulted 02/26/25 03:43 Nose MRSA Screen - Final Complete Assessment A 64-year-old female Shock due to cardiogenic versus septic Influenza B pneumonia Acute hypoxic respiratory failure Hepatitis-C antibody positive Congestive heart failure Apical thrombus Severe pulmonary hypertension Methamphetamine abuse Acute kidney injury Noncompliance Tobacco use COPD Recommendations Patient is severely sick with multiple pressors due to multiorgan failure due to underlying history of pulmonary hypertension, CHF, meth abuse She is intubated and sedated Continue Tamiflu Reviewed all the cultures from the admission until now which are negative except for influenza B On review of lab patient has positive antibody for hepatitis A and hepatitis-C CXR shows bilateral pleural effusion Multiple subspecialties are on board such as Cardiology, Nephrology Overall prognosis of this patient is very poor Critical time 75 minutes spent during the encounter plan discussed with treatment team Plan discussed with: ALEJANDRO Mahoney MD Mar 06, 2025 11:43
--- NOTE | 2025-03-06 13:50 | DVHPN2 ---
Progress Note - Dictate Date Seen: Mar 06, 2025 Medical Necessity Reason Pt with a Central, PICC or Fol: No vital signs Vital Sign Date Time Temp Pulse Resp B/P (MAP) Pulse Ox O2 Delivery O2 Flow Rate FiO2 03/06/25 12:12 104/54 03/06/25 12:00 40 03/06/25 12:00 24 97 Mechanical Ventilator+ 03/06/25 12:00 109 03/06/25 08:30 97.5 207.5 03/06/25 08:00 0 Total Intake and Output 03/05/25 03/05/25 03/06/25 15:00 23:00 07:00 Intake Total 1561.055 ml 675.384 ml 544.322 ml Output Total 1650 ml 1500 ml Balance 1561.055 ml -974.616 ml -955.678 ml medications Current Medications Medications Dose Ordered Sig/Jose Luis Route Start Time Stop Time Status Last Admin Dose Admin Azithromycin 250 ml @ 125 mls/hr DAILY IV 02/26/25 10:00 03/06/25 10:46 125 MLS/HR Ondansetron HCl 4 mg Q6HP PRN IV 02/25/25 23:00 02/27/25 17:24 4 MG Morphine Sulfate 2 mg Q6HP PRN IV 02/25/25 23:00 02/26/25 02:50 2 MG Pantoprazole Sodium 40 mg DAILY IV 02/26/25 10:00 03/06/25 10:46 40 MG Acetaminophen/ Hydrocodone Bitart 1 tab Q6HPRN PRN PO 02/25/25 23:00 03/03/25 09:58 1 TAB Acetaminophen 650 mg Q6HPRN PRN PO 02/25/25 23:00 02/26/25 02:51 650 MG Lorazepam 1 mg Q6HP PRN PO 02/27/25 16:10 03/03/25 05:19 1 MG Guaifenesin 200 mg Q4HP PRN PO 02/28/25 15:00 03/03/25 05:19 200 MG Albuterol 2.5 mg Q4HWA NEB 02/28/25 18:00 03/06/25 09:53 2.5 MG Ipratropium [place] 0.5 mg Q4HWA NEB 02/28/25 18:00 03/06/25 09:54 0.5 MG Albuterol 2.5 mg Q2HPRN PRN NEB 02/28/25 16:00 03/01/25 03:40 2.5 MG Ipratropium [place] 0.5 mg Q2HPRN PRN NEB 02/28/25 16:00 03/01/25 03:40 0.5 MG Aspirin 81 mg DAILY PO 03/02/25 10:00 03/06/25 10:47 81 MG Propofol 100 ml @ 1.854 mls/ hr Q24H IV 03/03/25 16:15 Midazolam HCl 50 ml @ 1 mls/hr Q24H IV 03/03/25 16:15 03/06/25 08:09 2 MLS/HR Fentanyl Citrate 250 ml @ 2.5 mls/hr Q24H IV 03/03/25 16:15 03/05/25 12:43 10 MLS/HR Norepinephrine Bitartrate 32 mg/ Sodium Chloride 250 ml @ 0.938 mls/ hr Q24H IV 03/03/25 17:30 03/05/25 23:19 0.938 MLS/HR Vasopressin 20 units/Sodium Chloride 100 ml @ 9 mls/hr Q11H7M IV 03/03/25 17:30 03/05/25 16:34 9 MLS/HR Vancomycin HCl 0 ml @ 0 mls/hr UD IV 03/03/25 18:45 UNV Piperacillin Sod/ Tazobactam Sod 100 ml @ 25 mls/hr Q8HR IV 03/03/25 22:00 03/05/25 23:17 25 MLS/HR Linezolid 300 ml @ 150 mls/hr Q12HR IV 03/03/25 22:00 03/06/25 10:00 150 MLS/HR Lactulose 30 ml DAILY PO 03/04/25 10:00 03/06/25 10:47 30 ML Enteral Nutritional Formula 1,000 ml 30ML/HR GT 03/04/25 14:15 Hydrocortisone Sodium Succinate 100 mg Q8HR IV 03/04/25 22:00 03/06/25 06:00 100 MG Metoclopramide HCl 10 mg Q8HR IV 03/05/25 22:00 03/06/25 06:00 10 MG Oseltamivir Phosphate 30 mg Q12HR PO 03/05/25 22:00 03/10/25 21:59 03/06/25 10:47 30 MG Enoxaparin Sodium 60 mg Q12HR SC 03/06/25 22:00 laboratory and microbiology Laboratory Tests 03/06/25 02:40 Test 03/06/25 02:40 Range/Units Serum Glucose 112 H 74-106 mg/dL Assessment/Plan Patient is seen and examined in the ICU Diagnosis Influenza B Pneumonia Acute hypoxemic respiratory failure Renal failure Metabolic acidosis Patient seen and examined in ICU Events Remains on the ventilator S/p intubation PEEP 5, FiO2 30% On low dose Levophed drip Labs and imaging reviewed Positive for Hepatitis B Chest x-ray reviewed ABG reviewed Management plan Continue vent support Sedation holiday daily If patient follows commands, proceed to weaning trial Pressure support 11/26, extubate when ready Daily ABGs and x-rays Continue bicarb drip and antibiotics Prognosis poor Family updated Echo care time 35 minutes Dietary Evaluation Review Comments: 1) Liberalizing to 2gm Na diet 2) Monitor PO intake, lab values, weight trend, and I/O Expected Outcomes/Goals: To meet >75% estimated needs Fu 3-5 days Plan discussed with: Other (RN) EVANS UGARTE MD Mar 06, 2025 13:50
--- NOTE | 2025-03-06 15:31 | DVHPN2 ---
Progress Note Date Seen: Mar 06, 2025 Medical Necessity Reason Pt with a Central, PICC or Fol: No Subjective Patient reports: Other (intubated/bp drop) Review of Systems: Deferred Objective vital signs Vital Sign Date Time Temp Pulse Resp B/P (MAP) Pulse Ox O2 Delivery O2 Flow Rate FiO2 03/06/25 13:52 114 12 128/65 (86) 96 35 03/06/25 12:00 Mechanical Ventilator+ 03/06/25 08:30 97.5 207.5 03/06/25 08:00 0 Total Intake and Output 03/05/25 03/05/25 03/06/25 15:00 23:00 07:00 Intake Total 1561.055 ml 675.384 ml 544.322 ml Output Total 1650 ml 1500 ml Balance 1561.055 ml -974.616 ml -955.678 ml medications Current Medications Medications Dose Ordered Sig/Jose Luis Route Start Time Stop Time Status Last Admin Dose Admin Azithromycin 250 ml @ 125 mls/hr DAILY IV 02/26/25 10:00 03/06/25 10:46 125 MLS/HR Ondansetron HCl 4 mg Q6HP PRN IV 02/25/25 23:00 02/27/25 17:24 4 MG Morphine Sulfate 2 mg Q6HP PRN IV 02/25/25 23:00 02/26/25 02:50 2 MG Pantoprazole Sodium 40 mg DAILY IV 02/26/25 10:00 03/06/25 10:46 40 MG Acetaminophen/ Hydrocodone Bitart 1 tab Q6HPRN PRN PO 02/25/25 23:00 03/03/25 09:58 1 TAB Acetaminophen 650 mg Q6HPRN PRN PO 02/25/25 23:00 02/26/25 02:51 650 MG Lorazepam 1 mg Q6HP PRN PO 02/27/25 16:10 03/03/25 05:19 1 MG Guaifenesin 200 mg Q4HP PRN PO 02/28/25 15:00 03/03/25 05:19 200 MG Albuterol 2.5 mg Q4HWA NEB 02/28/25 18:00 03/06/25 13:54 2.5 MG Ipratropium [place] 0.5 mg Q4HWA NEB 02/28/25 18:00 03/06/25 13:50 0.5 MG Albuterol 2.5 mg Q2HPRN PRN NEB 02/28/25 16:00 03/01/25 03:40 2.5 MG Ipratropium [place] 0.5 mg Q2HPRN PRN NEB 02/28/25 16:00 03/01/25 03:40 0.5 MG Aspirin 81 mg DAILY PO 03/02/25 10:00 03/06/25 10:47 81 MG Propofol 100 ml @ 1.854 mls/ hr Q24H IV 03/03/25 16:15 Midazolam HCl 50 ml @ 1 mls/hr Q24H IV 03/03/25 16:15 03/06/25 08:09 2 MLS/HR Fentanyl Citrate 250 ml @ 2.5 mls/hr Q24H IV 03/03/25 16:15 03/06/25 14:17 10 MLS/HR Norepinephrine Bitartrate 32 mg/ Sodium Chloride 250 ml @ 0.938 mls/ hr Q24H IV 03/03/25 17:30 03/05/25 23:19 0.938 MLS/HR Vasopressin 20 units/Sodium Chloride 100 ml @ 9 mls/hr Q11H7M IV 03/03/25 17:30 03/05/25 16:34 9 MLS/HR Vancomycin HCl 0 ml @ 0 mls/hr UD IV 03/03/25 18:45 UNV Piperacillin Sod/ Tazobactam Sod 100 ml @ 25 mls/hr Q8HR IV 03/03/25 22:00 03/05/25 23:17 25 MLS/HR Linezolid 300 ml @ 150 mls/hr Q12HR IV 03/03/25 22:00 03/06/25 10:00 150 MLS/HR Lactulose 30 ml DAILY PO 03/04/25 10:00 03/06/25 10:47 30 ML Enteral Nutritional Formula 1,000 ml 30ML/HR GT 03/04/25 14:15 Hydrocortisone Sodium Succinate 100 mg Q8HR IV 03/04/25 22:00 03/06/25 14:12 100 MG Metoclopramide HCl 10 mg Q8HR IV 03/05/25 22:00 03/06/25 14:11 10 MG Oseltamivir Phosphate 30 mg Q12HR PO 03/05/25 22:00 03/10/25 21:59 03/06/25 10:47 30 MG Enoxaparin Sodium 60 mg Q12HR SC 03/06/25 22:00 Examination: GENERAL:Abnormal, LUNGS:Abnormal, MSK:Abnormal, NEURO:Abnormal laboratory and microbiology Laboratory Tests 03/06/25 02:40 Test 03/06/25 02:40 Range/Units Serum Glucose 112 H 74-106 mg/dL Microbiology Date/Time Source Procedure Growth Status 03/05/25 15:00 Nose MRSA Screen - Final Complete 03/03/25 22:09 Urine - [place] Urine Culture - Final Complete 03/03/25 19:15 Blood Blood Culture - Preliminary NO GROWTH AFTER 48 HOURS OF INCUBATION. Resulted Problem List/Assessment/Plan Problem List/Assessment/Plan Acute kidney injury secondary hemodynamic mediated Acute respiratory failure, patient intubated on ventilator Septic shock Hypokalemia due to potassium depletion Hypochloremic Metabolic alkalosis due to excessive diuresis Hypoalbuminemia Hyperglycemia Methamphetamine abuse Chronic systolic Congestive heart failure, ejection fraction 15-20% AICD Influenza B positive Hiatal hernia recs on levophed dc dopamine ns iv as ordered Plan discussed with: Daughter, Other Dietary Evaluation Review Comments: 1) Liberalizing to 2gm Na diet 2) Monitor PO intake, lab values, weight trend, and I/O Expected Outcomes/Goals: To meet >75% estimated needs Fu 3-5 days Critical Care Time (mins): 39 LORENA CUMMINGS MD Mar 06, 2025 15:31
--- NOTE | 2025-03-06 16:55 | DVHPN2 ---
Subjective Patient has remained intubated and sedated, currently on low dose of vasopressin, Levophed is off, Lasix has been discontinued as per Nephrology. Patient has a good amount of urine output currently on dopamine drip. Daughter was updated at bedside. Reviewed: Care Plan Changes from previous H/P or p: No Changes Objective Vitals Vital Signs Date Time Temp Pulse Resp B/P (MAP) Pulse Ox O2 Delivery O2 Flow Rate FiO2 03/06/25 16:42 114 12 126/75 (92) 96 35 03/06/25 16:00 Mechanical Ventilator+ 03/06/25 15:30 98.1 208.6 03/06/25 08:00 0 Intake/Output Intake and Output 03/06/25 07:00 Intake Total 2780.761 ml Output Total 3150 ml Balance -369.239 ml Intake Oral 150 ml IV Total 2590.761 ml Tube Feeding 40 ml Output Urine Total 3150 ml Stool Total 0 ml Exam HEENT pupils are reactive Neck is supple CV is S1-S2 regular rate and rhythm Respiratory diminished breath sounds bases , bilateral basal crackles GI positive bowel sound Extremity no edema [employer] intubated and sedated Medications Current Medications Medications Dose Ordered Sig/Jose Luis Route Start Time Stop Time Status Last Admin Dose Admin Azithromycin 250 ml @ 125 mls/hr DAILY IV 02/26/25 10:00 03/06/25 10:46 125 MLS/HR Ondansetron HCl 4 mg Q6HP PRN IV 02/25/25 23:00 02/27/25 17:24 4 MG Morphine Sulfate 2 mg Q6HP PRN IV 02/25/25 23:00 02/26/25 02:50 2 MG Pantoprazole Sodium 40 mg DAILY IV 02/26/25 10:00 03/06/25 10:46 40 MG Acetaminophen/ Hydrocodone Bitart 1 tab Q6HPRN PRN PO 02/25/25 23:00 03/03/25 09:58 1 TAB Acetaminophen 650 mg Q6HPRN PRN PO 02/25/25 23:00 02/26/25 02:51 650 MG Lorazepam 1 mg Q6HP PRN PO 02/27/25 16:10 03/03/25 05:19 1 MG Guaifenesin 200 mg Q4HP PRN PO 02/28/25 15:00 03/03/25 05:19 200 MG Albuterol 2.5 mg Q4HWA NEB 02/28/25 18:00 03/06/25 13:54 2.5 MG Ipratropium [place] 0.5 mg Q4HWA NEB 02/28/25 18:00 03/06/25 13:50 0.5 MG Albuterol 2.5 mg Q2HPRN PRN NEB 02/28/25 16:00 03/01/25 03:40 2.5 MG Ipratropium [place] 0.5 mg Q2HPRN PRN [facility] 02/28/25 16:00 03/01/25 03:40 0.5 MG Aspirin 81 mg DAILY PO 03/02/25 10:00 03/06/25 10:47 81 MG Propofol 100 ml @ 1.854 mls/ hr Q24H IV 03/03/25 16:15 Midazolam HCl 50 ml @ 1 mls/hr Q24H IV 03/03/25 16:15 03/06/25 08:09 2 MLS/HR Fentanyl Citrate 250 ml @ 2.5 mls/hr Q24H IV 03/03/25 16:15 03/06/25 14:17 10 MLS/HR Norepinephrine Bitartrate 32 mg/ Sodium Chloride 250 ml @ 0.938 mls/ hr Q24H IV 03/03/25 17:30 03/05/25 23:19 0.938 MLS/HR Vasopressin 20 units/Sodium Chloride 100 ml @ 9 mls/hr Q11H7M IV 03/03/25 17:30 03/05/25 16:34 9 MLS/HR Vancomycin HCl 0 ml @ 0 mls/hr UD IV 03/03/25 18:45 UNV Piperacillin Sod/ Tazobactam Sod 100 ml @ 25 mls/hr Q8HR IV 03/03/25 22:00 03/05/25 23:17 25 MLS/HR Linezolid 300 ml @ 150 mls/hr Q12HR IV 03/03/25 22:00 03/06/25 10:00 150 MLS/HR Lactulose 30 ml DAILY PO 03/04/25 10:00 03/06/25 10:47 30 ML Enteral Nutritional Formula 1,000 ml 30ML/HR GT 03/04/25 14:15 Hydrocortisone Sodium Succinate 100 mg Q8HR IV 03/04/25 22:00 03/06/25 14:12 100 MG Metoclopramide HCl 10 mg Q8HR IV 03/05/25 22:00 03/06/25 14:11 10 MG Oseltamivir Phosphate 30 mg Q12HR PO 03/05/25 22:00 03/10/25 21:59 03/06/25 10:47 30 MG Enoxaparin Sodium 60 mg Q12HR SC 03/06/25 22:00 Laboratory Results Laboratory Tests 03/06/25 02:40 Chemistry Test 03/06/25 02:40 Albumin 3.6 g/dL (3.2-4.8) Calcium Level 9.3 mg/dL (8.7-10.4) Magnesium Level 2.3 mg/dL (1.6-2.6) Total Protein 6.0 g/dL (5.7-8.2) LFT Test 03/06/25 02:40 Alanine Aminotransferase (ALT) 312 U/L (7-40) H Alkaline Phosphatase 83 U/L (46-116) Aspartate Amino Transferase (AST) 355 U/L (13-40) H Total Bilirubin 1.6 mg/dL (0.2-1.0) H Urinalysis Test 03/05/25 10:40 Urine Color Light-yellow (Yellow) Urine Clarity Clear (Clear) Urine pH 7.0 (5.0-9.0) Urine Specific [place] 1.009 (1.001-1.035) Urine Protein Negative (Negative) Urine Ketones Negative (Negative) Urine Blood Negative /uL (Negative) Urine Nitrite Negative (Negative) Urine Bilirubin Negative (Negative) Urine Urobilinogen Normal mg/dL (Negative) Urine Leukocyte Esterase Negative /uL (Negative) Urine RBC 1 /hpf (0 - 4) Urine Microscopic WBC 1 /HPF (0-5) Urine Squamous Epithelial Cells None seen /hpf (<5) Urine Bacteria None seen /hpf (None Seen) Urine Yeast (Budding) Few /hpf (None Seen) Urine Creatinine 11.91 mg/dL (30.0-125.0) L Urine Protein/Creatinine Ratio 1.23 Urine Sodium 77 mmol/L (40-220) Urine Glucose 4+ mg/dL (Normal) H Urine Total Protein 14.7 mg/dL (1-14) H Blood Gas Results Test 03/06/25 07:15 Arterial Blood pH 7.554 (7.350-7.450) FiO2 % 40.0 Microbiology Microbiology Date/Time Source Procedure Growth Status 03/05/25 15:00 Nose MRSA Screen - Final Complete 03/03/25 22:09 Urine - [place] Urine Culture - Final Complete 03/03/25 19:15 Blood Blood Culture - Preliminary NO GROWTH AFTER 48 HOURS OF INCUBATION. Resulted Assessment/Plan Assessment/Plan 64-year-old female with a known history of pulmonary hypertension, ischemic cardiomyopathy, CAD status post PCI, COPD, chronic meth use presented to the hospital with the abdominal pain patient was found to have 1. acute hypoxic respiratory failure requiring intubation and mechanical ventilation, currently on FiO2 40% with a PEEP of five 2. Abdominal pain, acute cholecystitis has been ruled out 3. Suspected pneumonia, on IV antibiotic 4. Acute on chronic congestive heart failure exacerbation with systolic dysfunction 5. Relative hypotension, currently on vasopressor 5. Chronic meth use 6. Acute kidney injury likely hemodynamically mediated, currently off of diuretics 7. Chronic tobacco use disorder/marijuana use -c patient is currently on intubated and sedated, on IV antibiotics follow up cultures, discontinue Lasix, monitor urine output, continue IV vasopressor -patient's remains critical prognosis remains guarded. -daughter updated at bedside. Plan discussed with: Daughter My Orders Orders - PING SANDERSON MD Procedure Category Date Status Time * Infectious Favian- DrBret CONS 03/05/25 Transmitted Mallad 17:35 Oseltamivir 30mg PHA 03/05/25 In Process Capsule (Tamiflu 30mg 22:00 * Wound Consult CONS 03/06/25 Transmitted Date of Service: Mar 06, 2025 Billing Provider: PING SANDERSON MD Common Visit Codes: [id number] INP/OBS CARE(HIGH), NOT BILLABLE PING SANDERSON MD Mar 06, 2025 16:55
[2025-03-06] MEDS: SODIUM CHLORIDE 0.9% 1,000 ML IV SCH (18:45)
[2025-03-06] MEDS: ENOXAPARIN SOD 60 MG/0.6 ML SYRINGE SC SCH (21:19)
[2025-03-06 21:46] LABS: Base Excess 12.7 mmol/L (-2.0-3.0)
--- NOTE | 2025-03-06 21:53 | DVHPN2 ---
Progress Note - Dictate Date Seen: Mar 06, 2025 Medical Necessity Reason Pt with a Central, PICC or Fol: No Subjective Patient was seen in [facility] still intubated sedated Liver enzymes are trending down She had moderate elevation in liver enzymes likely related to hypoxic liver injury or shock liver Renal function is improving Ejection fraction is 15% and she is diagnosed with the apical thrombus Patient history of severe coronary artery disease She also had mild diffuse abdominal pain and other chronic pain syndrome Patient has cholelithiasis with a HIDA scan was negative Patient has remained intubated and sedated, currently on low dose of vasopressin, Levophed is off, Lasix has been discontinued as per Nephrology. Patient has a good amount of urine output currently on dopamine drip. Daughter was updated at bedside. vital signs Vital Sign Date Time Temp Pulse Resp B/P (MAP) Pulse Ox O2 Delivery O2 Flow Rate FiO2 03/06/25 20:24 117 18 125/77 (93) 94 35 03/06/25 19:30 97.5 207.5 03/06/25 18:00 Mechanical Ventilator+ 03/06/25 08:00 0 Total Intake and Output 03/05/25 03/05/25 03/06/25 15:00 23:00 07:00 Intake Total 1561.055 ml 675.384 ml 544.322 ml Output Total 1650 ml 1500 ml Balance 1561.055 ml -974.616 ml -955.678 ml medications Current Medications Medications Dose Ordered Sig/Jose Luis Route Start Time Stop Time Status Last Admin Dose Admin Azithromycin 250 ml @ 125 mls/hr DAILY IV 02/26/25 10:03/06/25 10:46 125 MLS/HR Ondansetron HCl 4 mg Q6HP PRN IV 02/25/25 23:00 02/27/25 17:24 4 MG Morphine Sulfate 2 mg Q6HP PRN IV 02/25/25 23:00 02/26/25 02:50 2 MG Pantoprazole Sodium 40 mg DAILY IV 02/26/25 10:00 03/06/25 10:46 40 MG Acetaminophen/ Hydrocodone Bitart 1 tab Q6HPRN PRN PO 02/25/25 23:00 03/03/25 09:58 1 TAB Acetaminophen 650 mg Q6HPRN PRN PO 02/25/25 23:00 02/26/25 02:51 650 MG Lorazepam 1 mg Q6HP PRN PO 02/27/25 16:10 03/03/25 05:19 1 MG Guaifenesin 200 mg Q4HP PRN PO 02/28/25 15:00 03/03/25 05:19 200 MG Albuterol 2.5 mg Q4HWA NEB 02/28/25 18:00 03/06/25 18:33 2.5 MG Ipratropium [place] 0.5 mg Q4HWA NEB 02/28/25 18:00 03/06/25 18:33 0.5 MG Albuterol 2.5 mg Q2HPRN PRN NEB 02/28/25 16:00 03/01/25 03:40 2.5 MG Ipratropium [place] 0.5 mg Q2HPRN PRN NEB 02/28/25 16:00 03/01/25 03:40 0.5 MG Aspirin 81 mg DAILY PO 03/02/25 10:00 03/06/25 10:47 81 MG Propofol 100 ml @ 1.854 mls/ hr Q24H IV 03/03/25 16:15 Midazolam HCl 50 ml @ 1 mls/hr Q24H IV 03/03/25 16:15 03/06/25 08:09 2 MLS/HR Fentanyl Citrate 250 ml @ 2.5 mls/hr Q24H IV 03/03/25 16:15 03/06/25 14:17 10 MLS/HR Norepinephrine Bitartrate 32 mg/ Sodium Chloride 250 ml @ 0.938 mls/ hr Q24H IV 03/03/25 17:30 03/06/25 17:30 3.75 MLS/HR Vasopressin 20 units/Sodium Chloride 100 ml @ 9 mls/hr Q11H7M IV 03/03/25 17:30 03/05/25 16:34 9 MLS/HR Vancomycin HCl 0 ml @ 0 mls/hr UD IV 03/03/25 18:45 UNV Piperacillin Sod/ Tazobactam Sod 100 ml @ 25 mls/hr Q8HR IV 03/03/25 22:00 03/06/25 14:00 25 MLS/HR Linezolid 300 ml @ 150 mls/hr Q12HR IV 03/03/25 22:00 03/06/25 21:18 150 MLS/HR Lactulose 30 ml DAILY PO 03/04/25 10:00 03/06/25 10:47 30 ML Enteral Nutritional Formula 1,000 ml 30ML/HR GT 03/04/25 14:15 Hydrocortisone Sodium Succinate 100 mg Q8HR IV 03/04/25 22:00 03/06/25 21:19 100 MG Metoclopramide HCl 10 mg Q8HR IV 03/05/25 22:00 03/06/25 14:11 10 MG Oseltamivir Phosphate 30 mg Q12HR PO 03/05/25 22:00 03/10/25 21:59 03/06/25 21:20 30 MG Enoxaparin Sodium 60 mg Q12HR SC 03/06/25 22:00 03/06/25 21:19 60 MG Sodium Chloride 1,000 ml @ 75 mls/hr [id number] IV 03/06/25 18:45 03/06/25 18:45 75 MLS/HR objective HEENT pupils are reactive Neck is supple oxygen supplementation at the time of my visit at 4:00 p.m. CV is S1-S2 regular rate and rhythm Respiratory diminished breath sounds bases GI positive bowel sound Extremity no edema [employer] no motor deficit laboratory and microbiology Laboratory Tests 03/06/25 02:40 Test 03/06/25 02:40 Range/Units Serum Glucose 112 H 74-106 mg/dL Problems(with codes): (1) Elevated liver enzymes (2) Influenza B (3) Amphetamine abuse (4) Hiatal hernia (5) Intractable abdominal pain Prognosis Plan Continue supportive care Continue to monitor labs Advance enteral tube feedings I will follow up patient with you Dietary Evaluation Review Comments: 1) Liberalizing to 2gm Na diet 2) Monitor PO intake, lab values, weight trend, and I/O Expected Outcomes/Goals: To meet >75% estimated needs Fu 3-5 days Plan discussed with: Other ([facility] Nurse) TRACY FORD MD Mar 06, 2025 21:53
[2025-03-07] VITALS (102 sets, daily range): BP systolic 72–140; BP diastolic 21–78; PULSE 11–119; RESP 10–22; TEMP 96.6–99; O2SAT 85–100
[2025-03-07 04:14] LABS: Hematocrit 33.8 % (36.0-46.0); Hemoglobin 10.8 g/dL (12.2-16.2)
[2025-03-07 04:15] LABS: Albumin 3.3 g/dL (3.2-4.8); Alkaline Phosphatase 74 U/L (46-116); BUN/Creatinine Ratio 18.6 (10.0-20.0); Blood Urea Nitrogen 21 mg/dL (9-23); Calcium 9.1 mg/dL (8.7-10.4); Magnesium 2.3 mg/dL (1.6-2.6); Potassium 3.8 mmol/L (3.5-5.1); Sodium 141 mmol/L (136-145)
[2025-03-07 04:17] LABS: Mean Corpuscular Hemoglobin 26.4 pg (28.0-32.0); Mean Corpuscular Volume 82.2 fL (80.0-100.0); Nucleated Red Blood Cells % 0.1 %
[2025-03-07 04:24] LABS: Alanine Aminotransferase 223 U/L (7-40); Anion Gap 7.99999 (5-15); Bilirubin, Total 1.4 mg/dL (0.2-1.0); Chloride 93 mmol/L (98-107); Glucose 113 mg/dL (74-106); Total Protein 5.6 g/dL (5.7-8.2)
[2025-03-07 04:25] LABS: Carbon Dioxide > 40 mmol/L (20-31)
--- NOTE | 2025-03-07 05:32 | DVH ---
CHEST RADIOGRAPH Indication: RESP DISTRESS Technique: Single frontal view of the chest was obtained COMPARISON: XY CHEST PORTABLE on DOS: 03/06/25, XY CHEST XRAY 1 VIEW on DOS: 03/05/25, XY CHEST SAVANNAH BLE on DOS: 03/04/25, XY CHEST PORTABLE on DOS: 03/04/25, XY CHEST PORTABLE on DOS: 03/03/25 FINDINGS: Lines and Tubes: Endotracheal tube, enteric catheter, left chest AICD and right central venous cathet er in satisfactory position. Lungs: Unchanged cardiomegaly and unchanged pulmonary vascular congestion. Pleura: No effusion. No pneumothorax. Cardiomediastinal contours: Unremarkable. Bones: Unremarkable. IMPRESSION: Lines and tubes in satisfactory position. No significant interval change.
[2025-03-07 09:08] LABS: Base Excess 12.1 mmol/L (-2.0-3.0)
[2025-03-07] MEDS: DEXMEDETOMIDINE HCL IN D5W 100 ML IV SCH (09:45)
--- NOTE | 2025-03-07 10:59 | MEDREC ---
[facility] ASP Intervention Section I [facility] ASP Intervention: Deescalate AB based on CS Assessment of apprpriate abx f: Empiric treatment of MRSA (PLEASE CONSIDER D/C LINEZOLID - NARES SCREENING FOR MRSA HAS A HIGH SPECIFICITY AND NEGATIVE PREDICTIVE VALUE FOR RULING OUT MRSA PNEUMONIA, PARTICULARLY IN CASES OF CAP BASED ON THE NEGATIVE PREDICITVE VALUE AND THE MRSA NARES NEGATIVE PLEASE CONSIDER D/C LINEZOLID. ) MELISSA DALEY PHARMACIST Mar 07, 2025 10:59
--- NOTE | 2025-03-07 12:00 | DVHPN2 ---
Progress Note - Dictate Date Seen: Mar 07, 2025 Medical Necessity Reason Pt with a Central, PICC or Fol: No Subjective Patient is on intubation On mechanical ventilation for Respiratory Failure vital signs Vital Sign Date Time Temp Pulse Resp B/P (MAP) Pulse Ox O2 Delivery O2 Flow Rate FiO2 03/07/25 10:01 11 14 98/65 (76) 94 40 03/07/25 06:45 97.9 208.2 03/07/25 05:59 Mechanical Ventilator+ 03/06/25 20:00 0 Total Intake and Output 03/07/25 03/07/25 03/07/25 02:30 10:30 18:30 Intake Total 1111.315 ml 761.439 ml Output Total 1000 ml Balance 1111.315 ml -238.561 ml medications Current Medications Medications Dose Ordered Sig/Jose Luis Route Start Time Stop Time Status Last Admin Dose Admin Azithromycin 250 ml @ 125 mls/hr DAILY IV 02/26/25 10:00 03/06/25 10:46 125 MLS/HR Ondansetron HCl 4 mg Q6HP PRN IV 02/25/25 23:00 02/27/25 17:24 4 MG Pantoprazole Sodium 40 mg DAILY IV 02/26/25 10:00 03/07/25 10:03 40 MG Acetaminophen 650 mg Q6HPRN PRN PO 02/25/25 23:00 02/26/25 02:51 650 MG Lorazepam 1 mg Q6HP PRN PO 02/27/25 16:10 03/03/25 05:19 1 MG Guaifenesin 200 mg Q4HP PRN PO 02/28/25 15:00 03/03/25 05:19 200 MG Albuterol 2.5 mg Q4HWA NEB 02/28/25 18:00 03/07/25 10:01 2.5 MG Ipratropium [place] 0.5 mg Q4HWA NEB 02/28/25 18:00 03/07/25 10:00 0.5 MG Albuterol 2.5 mg Q2HPRN PRN NEB 02/28/25 16:00 03/01/25 03:40 2.5 MG Ipratropium [place] 0.5 mg Q2HPRN PRN NEB 02/28/25 16:00 03/01/25 03:40 0.5 MG Aspirin 81 mg DAILY PO 03/02/25 10:00 03/07/25 10:03 81 MG Propofol 100 ml @ 1.854 mls/ hr Q24H IV 03/03/25 16:15 Midazolam HCl 50 ml @ 1 mls/hr Q24H IV 03/03/25 16:15 03/06/25 22:34 2 MLS/HR Fentanyl Citrate 250 ml @ 2.5 mls/hr Q24H IV 03/03/25 16:15 03/07/25 10:05 7.5 MLS/HR Norepinephrine Bitartrate 32 mg/ Sodium Chloride 250 ml @ 0.938 mls/ hr Q24H IV 03/03/25 17:30 03/06/25 17:30 3.75 MLS/HR Vasopressin 20 units/Sodium Chloride 100 ml @ 9 mls/hr Q11H7M IV 03/03/25 17:30 03/05/25 16:34 9 MLS/HR Vancomycin HCl 0 ml @ 0 mls/hr UD IV 03/03/25 18:45 UNV Piperacillin Sod/ Tazobactam Sod 100 ml @ 25 mls/hr Q8HR IV 03/03/25 22:00 03/07/25 05:47 25 MLS/HR Linezolid 300 ml @ 150 mls/hr Q12HR IV 03/03/25 22:00 03/07/25 10:03 150 MLS/HR Lactulose 30 ml DAILY PO 03/04/25 10:00 03/07/25 10:03 30 ML Enteral Nutritional Formula 1,000 ml 30ML/HR GT 03/04/25 14:15 Hydrocortisone Sodium Succinate 100 mg Q8HR IV 03/04/25 22:00 03/07/25 05:47 100 MG Metoclopramide HCl 10 mg Q8HR IV 03/05/25 22:00 03/07/25 05:47 10 MG Oseltamivir Phosphate 30 mg Q12HR PO 03/05/25 22:00 03/10/25 21:59 03/07/25 10:03 30 MG Enoxaparin Sodium 60 mg Q12HR SC 03/06/25 22:00 03/07/25 10:04 60 MG Sodium Chloride 1,000 ml @ 75 mls/hr [id number] IV 03/06/25 18:45 03/07/25 10:03 75 MLS/HR objective General intubated and sedated HEENT: Atraumatic,intubated Neck: No swelling Lungs: Equal air entry and clear to auscultation Cardiovascular: S1 S2 heard no murmur Abdomen: Soft nontender, no organomegaly, nondistended Neuro: sedated, unable to assess laboratory and microbiology Laboratory Tests 03/07/25 03:28 Test 03/07/25 03:28 Range/Units Serum Glucose 113 H 74-106 mg/dL Assessment/Plan A 64-year-old female Shock due to cardiogenic versus septic Influenza B pneumonia Acute hypoxic respiratory failure - on Mechanical ventilation Hepatitis-C antibody positive Congestive heart failure Apical thrombus Severe pulmonary hypertension Methamphetamine abuse Acute kidney injury Noncompliance Tobacco use COPD Recommendations Patient is severely sick with multiple pressors due to multiorgan failure due to underlying history of pulmonary hypertension, CHF, meth abuse She is intubated but not sedated. Patient is not awake Continue Tamiflu Reviewed all the cultures from the admission until now which are negative except for influenza B Antibiotics history Azithromycin 02/25 until now Ceftriaxone 02/25- 03/03 Linezolid 03/03- now Zosyn: 03/03- now Tamiflu 03/05- now MRSA NAAT is negative, DC Linezolid stop Azithromycin currently on Zosyn CXR is likely pulm edema with viral pneumonia On review of lab patient has positive antibody for hepatitis A and hepatitis-C WBC count is elevated CXR shows bilateral pleural effusion reviewed Multiple subspecialties are on board such as Cardiology, Nephrology Overall prognosis of this patient is very poor Critical time 50 minutes spent during the encounter plan discussed with treatment team Dietary Evaluation Review Comments: 1) Liberalizing to 2gm Na diet 2) Monitor PO intake, lab values, weight trend, and I/O Expected Outcomes/Goals: To meet >75% estimated needs Fu 3-5 days Plan discussed with: Other ALEJANDRO DOUGHERTY MD Mar 07, 2025 12:00
--- NOTE | 2025-03-07 13:16 | DVHPN2 ---
Consult Progress Note Subjective Other Systems: Sinus tachycardia on cardiac rehabilitation specialist Patient remains chemically sedated and mechanically ventilated Objective vital signs Vital Sign Date Time Temp Pulse Resp B/P (MAP) Pulse Ox O2 Delivery O2 Flow Rate FiO2 03/07/25 11:57 109 16 119/67 (84) 95 40 03/07/25 06:45 97.9 208.2 03/07/25 05:59 Mechanical Ventilator+ 03/06/25 20:00 0 Total Intake and Output 03/06/25 03/06/25 03/07/25 15:00 23:00 07:00 Intake Total 705.631 ml 1181.314 ml 1030.878 ml Output Total 1500 ml 1000 ml Balance 705.631 ml -318.686 ml 30.878 ml medications Current Medications Medications Dose Ordered Sig/Jose Luis Route Start Time Stop Time Status Last Admin Dose Admin Azithromycin 250 ml @ 125 mls/hr DAILY IV 02/26/25 10:00 03/07/25 12:37 125 MLS/HR Ondansetron HCl 4 mg Q6HP PRN IV 02/25/25 23:00 02/27/25 17:24 4 MG Pantoprazole Sodium 40 mg DAILY IV 02/26/25 10:00 03/07/25 10:03 40 MG Acetaminophen 650 mg Q6HPRN PRN PO 02/25/25 23:00 02/26/25 02:51 650 MG Lorazepam 1 mg Q6HP PRN PO 02/27/25 16:10 03/03/25 05:19 1 MG Guaifenesin 200 mg Q4HP PRN PO 02/28/25 15:00 03/03/25 05:19 200 MG Albuterol 2.5 mg Q4HWA NEB 02/28/25 18:00 03/07/25 10:01 2.5 MG Ipratropium [place] 0.5 mg Q4HWA NEB 02/28/25 18:00 03/07/25 10:00 0.5 MG Albuterol 2.5 mg Q2HPRN PRN NEB 02/28/25 16:00 03/01/25 03:40 2.5 MG Ipratropium [place] 0.5 mg Q2HPRN PRN NEB 02/28/25 16:00 03/01/25 03:40 0.5 MG Aspirin 81 mg DAILY PO 03/02/25:00 03/07/25 10:03 81 MG Propofol 100 ml @ 1.854 mls/ hr Q24H IV 03/03/25 16:15 Midazolam HCl 50 ml @ 1 mls/hr Q24H IV 03/03/25 16:15 03/06/25 22:34 2 MLS/HR Fentanyl Citrate 250 ml @ 2.5 mls/hr Q24H IV 03/03/25 16:15 03/07/25 10:05 7.5 MLS/HR Norepinephrine Bitartrate 32 mg/ Sodium Chloride 250 ml @ 0.938 mls/ hr Q24H IV 03/03/25 17:30 03/06/25 17:30 3.75 MLS/HR Vasopressin 20 units/Sodium Chloride 100 ml @ 9 mls/hr Q11H7M IV 03/03/25 17:30 03/05/25 16:34 9 MLS/HR Vancomycin HCl 0 ml @ 0 mls/hr UD IV 03/03/25 18:45 UNV Piperacillin Sod/ Tazobactam Sod 100 ml @ 25 mls/hr Q8HR IV 03/03/25 22:00 03/07/25 05:47 25 MLS/HR Linezolid 300 ml @ 150 mls/hr Q12HR IV 03/03/25 22:00 03/07/25 10:03 150 MLS/HR Lactulose 30 ml DAILY PO 03/04/25 10:00 03/07/25 10:03 30 ML Enteral Nutritional Formula 1,000 ml 30ML/HR GT 03/04/25 14:15 Hydrocortisone Sodium Succinate 100 mg Q8HR IV 03/04/25 22:00 03/07/25 05:47 100 MG Metoclopramide HCl 10 mg Q8HR IV 03/05/25 22:00 03/07/25 05:47 10 MG Oseltamivir Phosphate 30 mg Q12HR PO 03/05/25 22:00 03/10/25 21:59 03/07/25 10:03 30 MG Enoxaparin Sodium 60 mg Q12HR SC 03/06/25 22:00 03/07/25 10:04 60 MG Sodium Chloride 1,000 ml @ 75 mls/hr [id number] IV 03/06/25 18:45 03/07/25 10:03 75 MLS/HR Examination: GENERAL:Abnormal, LUNGS:Abnormal (Mechanically ventilated), CVS:Normal, NEURO:Abnormal (Chemically sedated) laboratory and microbiology Laboratory Tests 03/07/25 03:28 Test 03/07/25 03:28 Range/Units Serum Glucose 113 H 74-106 mg/dL Problem List/Assessment/Plan Problem List/Assessment/Plan Chronic HFrEF, NYHA class III Apical thrombus Transient atrial fibrillation, now normal sinus rhythm Severe coronary artery disease with questionable stent placement Ischemic cardiomyopathy Presence of ICD ([employer]) Septic shock Hypertension Dyslipidemia Acute hypoxic respiratory failure secondary to pneumonia Influenza B positive Pulmonary hypertension, severe degree COPD Transaminitis Hyperkalemia Acute kidney injury Thyroid disease Methamphetamine abuse Tobacco use Medical noncompliance Plan/Recommendations (Dr. Gibbs): * Transthoracic echocardiogram reveals EF 15-20% with apical thrombus. * Continue therapeutic Lovenox, transition to DOAC with Eliquis prior to discharge * Continue vasopressors for hemodynamic support (Quad concentration to prevent fluid overload) * Unable to continue guideline directed medical therapy for CHF given vasopressor support * Strict intake and output, daily weights, maintain fluid restriction * Antiplatelet therapy * Resume lipid-lowering agent with improved liver enzymes * Close cardiac surveillance * Antibiotics per primary care team Case discussed with . Transthoracic echocardiogram revealed an apical thrombus. Per guideline recommendations, Coumadin therapy is recommended. Given patient medical noncompliance and chronic meth use, doubt patient will be compliant with Coumadin Clinic. We will recommend off-label use of NOAC therapy Eliquis. [id number] VASc score: 5 points, HAS-BLED score: 2 points. Continue therapeutic Lovenox while inpatient, consider DOAC prior to discharge. Unable to initiate beta-wanda for rate control given current vasopressor therapy. Thank you for allowing us to care for this patient. Please call with any questions or concerns. Critical care time spent: 38 minutes. This medical document was created using an electronic medical record system with voice recognition software and computerized dictation system. Although this document has been carefully reviewed, there might still be some phonetic and typographical errors. Occasional wrong-word or ``sound-alike substitutions may have occurred due to the inherent limitations of voice recognition software. These areas are purely typographical due to imperfections of the software programs and do not reflect any compromise in the patient's medical care. Please read the chart carefully and recognize, using context, where these substitutions have occurred. Plan discussed with: Daughter (Daughter at bedside), Other (Bedside RN) Dietary Evaluation Review Comments: 1) Liberalizing to 2gm Na diet 2) Monitor PO intake, lab values, weight trend, and I/O Expected Outcomes/Goals: To meet >75% estimated needs Fu 3-5 days Date of Service: Mar 07, 2025 Billing Provider: ADELSO HALL Common Visit Codes: [id number] CARE 30-74 MIN ADELSO HALL Mar 07, 2025 13:16
--- NOTE | 2025-03-07 13:38 | DVHPN2 ---
Progress Note - Dictate Date Seen: Mar 07, 2025 Medical Necessity Reason Pt with a Central, PICC or Fol: No vital signs Vital Sign Date Time Temp Pulse Resp B/P (MAP) Pulse Ox O2 Delivery O2 Flow Rate FiO2 03/07/25 11:57 109 16 119/67 (84) 95 40 03/07/25 06:45 97.9 208.2 03/07/25 05:59 Mechanical Ventilator+ 03/06/25 20:00 0 Total Intake and Output 03/06/25 03/06/25 03/07/25 15:00 23:00 07:00 Intake Total 705.631 ml 1181.314 ml 1030.878 ml Output Total 1500 ml 1000 ml Balance 705.631 ml -318.686 ml 30.878 ml medications Current Medications Medications Dose Ordered Sig/Jose Luis Route Start Time Stop Time Status Last Admin Dose Admin Azithromycin 250 ml @ 125 mls/hr DAILY IV 02/26/25 10:00 03/07/25 12:37 125 MLS/HR Ondansetron HCl 4 mg Q6HP PRN IV 02/25/25 23:00 02/27/25 17:24 4 MG Pantoprazole Sodium 40 mg DAILY IV 02/26/25 10:00 03/07/25 10:03 40 MG Acetaminophen 650 mg Q6HPRN PRN PO 02/25/25 23:00 02/26/25 02:51 650 MG Lorazepam 1 mg Q6HP PRN PO 02/27/25 16:10 03/03/25 05:19 1 MG Guaifenesin 200 mg Q4HP PRN PO 02/28/25 15:00 03/03/25 05:19 200 MG Albuterol 2.5 mg Q4HWA NEB 02/28/25 18:00 03/07/25 13:35 2.5 MG Ipratropium [place] 0.5 mg Q4HWA NEB 02/28/25 18:00 03/07/25 13:35 0.5 MG Albuterol 2.5 mg Q2HPRN PRN NEB 02/28/25 16:00 03/01/25 03:40 2.5 MG Ipratropium [place] 0.5 mg Q2HPRN PRN NEB 02/28/25 16:00 03/01/25 03:40 0.5 MG Aspirin 81 mg DAILY PO 03/02/25 10:00 03/07/25 10:03 81 MG Propofol 100 ml @ 1.854 mls/ hr Q24H IV 03/03/25 16:15 Midazolam HCl 50 ml @ 1 mls/hr Q24H IV 03/03/25 16:15 03/06/25 22:34 2 MLS/HR Fentanyl Citrate 250 ml @ 2.5 mls/hr Q24H IV 03/03/25 16:15 03/07/25 10:05 7.5 MLS/HR Norepinephrine Bitartrate 32 mg/ Sodium Chloride 250 ml @ 0.938 mls/ hr Q24H IV 03/03/25 17:30 03/06/25 17:30 3.75 MLS/HR Vasopressin 20 units/Sodium Chloride 100 ml @ 9 mls/hr Q11H7M IV 03/03/25 17:30 03/05/25 16:34 9 MLS/HR Vancomycin HCl 0 ml @ 0 mls/hr UD IV 03/03/25 18:45 UNV Piperacillin Sod/ Tazobactam Sod 100 ml @ 25 mls/hr Q8HR IV 03/03/25 22:00 03/07/25 05:47 25 MLS/HR Linezolid 300 ml @ 150 mls/hr Q12HR IV 03/03/25 22:00 03/07/25 10:03 150 MLS/HR Lactulose 30 ml DAILY PO 03/04/25 10:00 03/07/25 10:03 30 ML Enteral Nutritional Formula 1,000 ml 30ML/HR GT 03/04/25 14:15 Hydrocortisone Sodium Succinate 100 mg Q8HR IV 03/04/25 22:00 03/07/25 05:47 100 MG Metoclopramide HCl 10 mg Q8HR IV 03/05/25 22:00 03/07/25 05:47 10 MG Oseltamivir Phosphate 30 mg Q12HR PO 03/05/25 22:00 03/10/25 21:59 03/07/25 10:03 30 MG Enoxaparin Sodium 60 mg Q12HR SC 03/06/25 22:00 03/07/25 10:04 60 MG Sodium Chloride 1,000 ml @ 75 mls/hr [id number] IV 03/06/25 18:45 03/07/25 10:03 75 MLS/HR laboratory and microbiology Laboratory Tests 03/07/25 03:28 Test 03/07/25 03:28 Range/Units Serum Glucose 113 H 74-106 mg/dL Assessment/Plan Patient is seen and examined in the ICU Diagnosis Influenza B Pneumonia Acute hypoxemic respiratory failure Renal failure Metabolic acidosis Patient seen and examined in ICU Events Remains on the ventilator S/p intubation PEEP 5, FiO2 30% Labs and imaging reviewed Positive for Hepatitis B Chest x-ray reviewed ABG reviewed Management plan Continue vent support Sedation holiday daily If patient follows commands, proceed to weaning trial Pressure support 11/26, extubate when ready Daily ABGs and x-rays Continue bicarb drip and antibiotics Prognosis poor Family updated Echo care time 35 minutes Dietary Evaluation Review Comments: 1) Liberalizing to 2gm Na diet 2) Monitor PO intake, lab values, weight trend, and I/O Expected Outcomes/Goals: To meet >75% estimated needs Fu 3-5 days Plan discussed with: Other (Rn) EVANS UGARTE MD Mar 07, 2025 13:38
[2025-03-07] MEDS: SODIUM CHLORIDE 0.9% 1,000 ML IV ONE (13:40)
--- NOTE | 2025-03-07 17:40 | DVHPN2 ---
Subjective Patient is currently off of dopamine, on low-dose of Levophed, but patient is not waking up. Reviewed: Care Plan Changes from previous H/P or p: No Changes Objective Vitals Vital Signs Date Time Temp Pulse Resp B/P (MAP) Pulse Ox O2 Delivery O2 Flow Rate FiO2 03/07/25 16:45 97.9 107 11 104/61 (75) 95 208.2 03/07/25 16:16 40 03/07/25 05:59 Mechanical Ventilator+ 03/06/25 20:00 0 Intake/Output Intake and Output 03/07/25 07:00 Intake Total 2917.823 ml Output Total 2500 ml Balance 417.823 ml Intake Oral 120 ml IV Total 2479.823 ml Tube Feeding 318 ml Output Urine Total 2500 ml Stool Total 0 ml Exam HEENT pupils are reactive Neck is supple CV is S1-S2 regular rate and rhythm Respiratory diminished breath sounds bases , bilateral basal crackles GI positive bowel sound Extremity no edema [employer], toes, currently off of sedation Medications Current Medications Medications Dose Ordered Sig/Jose Luis Route Start Time Stop Time Status Last Admin Dose Admin Azithromycin 250 ml @ 125 mls/hr DAILY IV 02/26/25 10:00 03/07/25 12:37 125 MLS/HR Ondansetron HCl 4 mg Q6HP PRN IV 02/25/25 23:00 02/27/25 17:24 4 MG Pantoprazole Sodium 40 mg DAILY IV 02/26/25 10:00 03/07/25 10:03 40 MG Acetaminophen 650 mg Q6HPRN PRN PO 02/25/25 23:00 02/26/25 02:51 650 MG Lorazepam 1 mg Q6HP PRN PO 02/27/25 16:10 03/03/25 05:19 1 MG Guaifenesin 200 mg Q4HP PRN PO 02/28/25 15:00 03/03/25 05:19 200 MG Albuterol 2.5 mg Q4HWA NEB 02/28/25 18:00 03/07/25 13:35 2.5 MG Ipratropium [place] 0.5 mg Q4HWA NEB 02/28/25 18:00 03/07/25 13:35 0.5 MG Albuterol 2.5 mg Q2HPRN PRN NEB 02/28/25 16:00 03/01/25 03:40 2.5 MG Ipratropium [place] 0.5 mg Q2HPRN PRN NEB 02/28/25 16:00 03/01/25 03:40 0.5 MG Aspirin 81 mg DAILY PO 03/02/25 10:00 03/07/25 10:03 81 MG Propofol 100 ml @ 1.854 mls/ hr Q24H IV 03/03/25 16:15 Midazolam HCl 50 ml @ 1 mls/hr Q24H IV 03/03/25 16:15 03/06/25 22:34 2 MLS/HR Fentanyl Citrate 250 ml @ 2.5 mls/hr Q24H IV 03/03/25 16:15 03/07/25 10:05 7.5 MLS/HR Norepinephrine Bitartrate 32 mg/ Sodium Chloride 250 ml @ 0.938 mls/ hr Q24H IV 03/03/25 17:30 03/07/25 14:41 1.875 MLS/HR Vasopressin 20 units/Sodium Chloride 100 ml @ 9 mls/hr Q11H7M IV 03/03/25 17:30 03/05/25 16:34 9 MLS/HR Vancomycin HCl 0 ml @ 0 mls/hr UD IV 03/03/25 18:45 UNV Piperacillin Sod/ Tazobactam Sod 100 ml @ 25 mls/hr Q8HR IV 03/03/25 22:00 03/07/25 15:00 25 MLS/HR Linezolid 300 ml @ 150 mls/hr Q12HR IV 03/03/25 22:00 03/07/25 10:03 150 MLS/HR Lactulose 30 ml DAILY PO 03/04/25 10:00 03/07/25 10:03 30 ML Enteral Nutritional Formula 1,000 ml 30ML/HR GT 03/04/25 14:15 Metoclopramide HCl 10 mg Q8HR IV 03/05/25 22:00 03/07/25 15:00 10 MG Oseltamivir Phosphate 30 mg Q12HR PO 03/05/25 22:00 03/10/25 21:59 03/07/25 10:03 30 MG Enoxaparin Sodium 60 mg Q12HR SC 03/06/25 22:00 03/07/25 10:04 60 MG Sodium Chloride 1,000 ml @ 75 mls/hr [id number] IV 03/06/25 18:45 03/07/25 14:59 75 MLS/HR Hydrocortisone Sodium Succinate 50 mg Q8HR IV 03/07/25 22:00 Laboratory Results Laboratory Tests 03/07/25 03:28 Chemistry Test 03/07/25 03:28 Albumin 3.3 g/dL (3.2-4.8) Calcium Level 9.1 mg/dL (8.7-10.4) Magnesium Level 2.3 mg/dL (1.6-2.6) Total Protein 5.6 g/dL (5.7-8.2) L LFT Test 03/07/25 03:28 Alanine Aminotransferase (ALT) 223 U/L (7-40) H Alkaline Phosphatase 74 U/L (46-116) Aspartate Amino Transferase (AST) 214 U/L (13-40) H Total Bilirubin 1.4 mg/dL (0.2-1.0) H Urinalysis Test 03/05/25 10:40 Urine Color Light-yellow (Yellow) Urine Clarity Clear (Clear) Urine pH 7.0 (5.0-9.0) Urine Specific [place] 1.009 (1.001-1.035) Urine Protein Negative (Negative) Urine Ketones Negative (Negative) Urine Blood Negative /uL (Negative) Urine Nitrite Negative (Negative) Urine Bilirubin Negative (Negative) Urine Urobilinogen Normal mg/dL (Negative) Urine Leukocyte Esterase Negative /uL (Negative) Urine RBC 1 /hpf (0 - 4) Urine Microscopic WBC 1 /HPF (0-5) Urine Squamous Epithelial Cells None seen /hpf (<5) Urine Bacteria None seen /hpf (None Seen) Urine Yeast (Budding) Few /hpf (None Seen) Urine Creatinine 11.91 mg/dL (30.0-125.0) L Urine Protein/Creatinine Ratio 1.23 Urine Sodium 77 mmol/L (40-220) Urine Glucose 4+ mg/dL (Normal) H Urine Total Protein 14.7 mg/dL (1-14) H Blood Gas Results Test 03/06/25 21:34 03/07/25 08:52 Arterial Blood pH 7.452 (7.350-7.450) 7.436 (7.350-7.450) FiO2 % 35.0 40.0 Microbiology Microbiology Date/Time Source Procedure Growth Status 03/05/25 15:00 Nose MRSA Screen - Final Complete 03/03/25 22:09 Urine - [place] Urine Culture - Final Complete 03/03/25 19:15 Blood Blood Culture - Preliminary NO GROWTH AFTER 72 HOURS OF INCUBATION. Resulted Assessment/Plan Assessment/Plan 64-year-old female with a known history of pulmonary hypertension, ischemic cardiomyopathy, CAD status post PCI, COPD, chronic meth use presented to the hospital with the abdominal pain patient was found to have 1. acute hypoxic respiratory failure requiring intubation and mechanical ventilation, currently on FiO2 40% with a PEEP of five 2. Abdominal pain, acute cholecystitis has been ruled out 3. Suspected pneumonia, on IV antibiotic 4. Acute on chronic congestive heart failure exacerbation with systolic dysfunction 5. Relative hypotension, currently on vasopressor 5. Chronic meth use 6. Acute kidney injury likely hemodynamically mediated, currently off of diuretics 7. Chronic tobacco use disorder/marijuana use - patient is currently on intubated but off sedation, on IV antibiotics follow up cultures, discontinue Lasix, monitor urine output, continue IV vasopressor -patient's remains critical prognosis remains guarded. -daughter updated at bedside. CPAP trial once patient is more awake alert and meets criteria for CPAP trial. Plan discussed with: Daughter My Orders Orders - PING SANDERSON MD Procedure Category Date Status Time Chest Portable XY 03/07/25 Resulted 04:00 Hydrocortisone PHA 03/07/25 In Process Succinate Inj 22:00 Date of Service: Mar 07, 2025 Billing Provider: PING SANDERSON MD Common Visit Codes: NOT BILLABLE PING SANDERSON MD Mar 07, 2025 17:40
--- NOTE | 2025-03-07 17:45 | DVHPN2 ---
Progress Note Date Seen: Mar 07, 2025 Medical Necessity Reason Pt with a Central, PICC or Fol: No Subjective Patient reports: Other (intubated/bp low) Review of Systems: Deferred Objective vital signs Vital Sign Date Time Temp Pulse Resp B/P (MAP) Pulse Ox O2 Delivery O2 Flow Rate FiO2 03/07/25 16:45 97.9 107 11 104/61 (75) 95 208.2 03/07/25 16:16 40 03/07/25 05:59 Mechanical Ventilator+ 03/06/25 20:00 0 Total Intake and Output 03/06/25 03/06/25 03/07/25 15:00 23:00 07:00 Intake Total 705.631 ml 1181.314 ml 1030.878 ml Output Total 1500 ml 1000 ml Balance 705.631 ml -318.686 ml 30.878 ml medications Current Medications Medications Dose Ordered Sig/Jose Luis Route Start Time Stop Time Status Last Admin Dose Admin Azithromycin 250 ml @ 125 mls/hr DAILY IV 02/26/25 10:00 03/07/25 12:37 125 MLS/HR Ondansetron HCl 4 mg Q6HP PRN IV 02/25/25 23:00 02/27/25 17:24 4 MG Pantoprazole Sodium 40 mg DAILY IV 02/26/25 10:00 03/07/25 10:03 40 MG Acetaminophen 650 mg Q6HPRN PRN PO 02/25/25 23:00 02/26/25 02:51 650 MG Lorazepam 1 mg Q6HP PRN PO 02/27/25 16:10 03/03/25 05:19 1 MG Guaifenesin 200 mg Q4HP PRN PO 02/28/25 15:00 03/03/25 05:19 200 MG Albuterol 2.5 mg Q4HWA NEB 02/28/25 18:00 03/07/25 13:35 2.5 [address] Ipratropium [place] 0.5 mg Q4HWA NEB 02/28/25 18:00 03/07/25 13:35 0.5 MG Albuterol 2.5 mg Q2HPRN PRN NEB 02/28/25 16:00 03/01/25 03:40 2.5 MG Ipratropium [place] 0.5 mg Q2HPRN PRN NEB 02/28/25 16:00 03/01/25 03:40 0.5 MG Aspirin 81 mg DAILY PO 03/02/25 10:00 03/07/25 10:03 81 MG Propofol 100 ml @ 1.854 mls/ hr Q24H IV 03/03/25 16:15 Midazolam HCl 50 ml @ 1 mls/hr Q24H IV 03/03/25 16:15 03/06/25 22:34 2 MLS/HR Fentanyl Citrate 250 ml @ 2.5 mls/hr Q24H IV 03/03/25 16:15 03/07/25 10:05 7.5 MLS/HR Norepinephrine Bitartrate 32 mg/ Sodium Chloride 250 ml @ 0.938 mls/ hr Q24H IV 03/03/25 17:30 03/07/25 14:41 1.875 MLS/HR Vasopressin 20 units/Sodium Chloride 100 ml @ 9 mls/hr Q11H7M IV 03/03/25 17:30 03/05/25 16:34 9 MLS/HR Vancomycin HCl 0 ml @ 0 mls/hr UD IV 03/03/25 18:45 UNV Piperacillin Sod/ Tazobactam Sod 100 ml @ 25 mls/hr Q8HR IV 03/03/25 22:00 03/07/25 15:00 25 MLS/HR Linezolid 300 ml @ 150 mls/hr Q12HR IV 03/03/25 22:00 03/07/25 10:03 150 MLS/HR Lactulose 30 ml DAILY PO 03/04/25 10:00 03/07/25 10:03 30 ML Enteral Nutritional Formula 1,000 ml 30ML/HR GT 03/04/25 14:15 Metoclopramide HCl 10 mg Q8HR IV 03/05/25 22:00 03/07/25 15:00 10 MG Oseltamivir Phosphate 30 mg Q12HR PO 03/05/25 22:00 03/10/25 21:59 03/07/25 10:03 30 MG Enoxaparin Sodium 60 mg Q12HR SC 03/06/25 22:00 03/07/25 10:04 60 MG Sodium Chloride 1,000 ml @ 75 mls/hr [id number] IV 03/06/25 18:45 03/07/25 14:59 75 MLS/HR Hydrocortisone Sodium Succinate 50 mg Q8HR IV 03/07/25 22:00 Examination: GENERAL:Abnormal, LUNGS:Abnormal, NEURO:Abnormal laboratory and microbiology Laboratory Tests 03/07/25 03:28 Test 03/07/25 03:28 Range/Units Serum Glucose 113 H 74-106 mg/dL Microbiology Date/Time Source Procedure Growth Status 03/05/25 15:00 Nose MRSA Screen - Final Complete 03/03/25 22:09 Urine - [place] Urine Culture - Final Complete 03/03/25 19:15 Blood Blood Culture - Preliminary NO GROWTH AFTER 72 HOURS OF INCUBATION. Resulted Problem List/Assessment/Plan Problem List/Assessment/Plan Acute kidney injury secondary hemodynamic mediated Acute respiratory failure, patient intubated on ventilator Septic shock Hypokalemia due to potassium depletion Hypochloremic Metabolic alkalosis due to excessive diuresis Hypoalbuminemia Hyperglycemia Methamphetamine abuse Chronic systolic Congestive heart failure, ejection fraction 15-20% AICD Influenza B positive Hiatal hernia recs on levophed ns iv as ordered bp drop Plan discussed with: Daughter, Other My Orders My Orders Orders - LORENA CUMMINGS MD Procedure Category Date Status Time Sodium Chloride 0.9% PHA 03/06/25 In Process 18:45 Dietary Evaluation Review Comments: 1) Liberalizing to 2gm Na diet 2) Monitor PO intake, lab values, weight trend, and I/O Expected Outcomes/Goals: To meet >75% estimated needs Fu 3-5 days Critical Care Time (mins): 35 LORENA CUMMINGS MD Mar 07, 2025 17:45
--- NOTE | 2025-03-07 19:35 | DVHPN2 ---
Progress Note - Dictate Date Seen: Mar 07, 2025 Medical Necessity Reason Pt with a Central, PICC or Fol: No Subjective Patient was seen in [facility] still intubated off sedation Tolerating tube feedings at 30ml/hr Liver enzymes are trending down Patient has persistent leukocytosis Renal function is improving Ejection fraction is 15% and she is diagnosed with the apical thrombus Patient history of severe coronary artery disease She also had mild diffuse abdominal pain and other chronic pain syndrome Patient has cholelithiasis with a HIDA scan was negative vital signs Vital Sign Date Time Temp Pulse Resp B/P (MAP) Pulse Ox O2 Delivery O2 Flow Rate FiO2 03/07/25 18:30 108 19 117/50 (72) 94 40 03/07/25 18:00 Mechanical Ventilator+ 03/07/25 16:45 97.9 208.2 03/07/25 08:00 0 Total Intake and Output 03/06/25 03/06/25 03/07/25 14:59 22:59 06:59 Intake Total 680.616 ml 1033.189 ml 1220.691 ml Output Total 1500 ml 1000 ml Balance 680.616 ml -466.811 ml 220.691 ml medications Current Medications Medications Dose Ordered Sig/Jose Luis Route Start Time Stop Time Status Last Admin Dose Admin Azithromycin 250 ml @ 125 mls/hr DAILY IV 02/26/25 10:00 03/07/25 12:37 125 MLS/HR Ondansetron HCl 4 mg Q6HP PRN IV 02/25/25 23:00 02/27/25 17:24 4 MG Pantoprazole Sodium 40 mg DAILY IV 02/26/25 10:03/07/25 10:03 40 MG Acetaminophen 650 mg Q6HPRN PRN PO 02/25/25 23:00 02/26/25 02:51 650 MG Lorazepam 1 mg Q6HP PRN PO 02/27/25 16:10 03/03/25 05:19 1 MG Guaifenesin 200 mg Q4HP PRN PO 02/28/25 15:00 03/03/25 05:19 200 MG Albuterol 2.5 mg Q4HWA NEB 02/28/25 18:00 03/07/25 18:30 2.5 MG Ipratropium [place] 0.5 mg Q4HWA NEB 02/28/25 18:00 03/07/25 18:30 0.5 MG Albuterol 2.5 mg Q2HPRN PRN NEB 02/28/25 16:00 03/01/25 03:40 2.5 MG Ipratropium [place] 0.5 mg Q2HPRN PRN NEB 02/28/25 16:00 03/01/25 03:40 0.5 MG Aspirin 81 mg DAILY PO 03/02/25 10:00 03/07/25 10:03 81 MG Propofol 100 ml @ 1.854 mls/ hr Q24H IV 03/03/25 16:15 Midazolam HCl 50 ml @ 1 mls/hr Q24H IV 03/03/25 16:15 03/06/25 22:34 2 MLS/HR Fentanyl Citrate 250 ml @ 2.5 mls/hr Q24H IV 03/03/25 16:15 03/07/25 10:05 7.5 MLS/HR Norepinephrine Bitartrate 32 mg/ Sodium Chloride 250 ml @ 0.938 mls/ hr Q24H IV 03/03/25 17:30 03/07/25 14:41 1.875 MLS/HR Vasopressin 20 units/Sodium Chloride 100 ml @ 9 mls/hr Q11H7M IV 03/03/25 17:30 03/05/25 16:34 9 MLS/HR Vancomycin HCl 0 ml @ 0 mls/hr UD IV 03/03/25 18:45 UNV Piperacillin Sod/ Tazobactam Sod 100 ml @ 25 mls/hr Q8HR IV 03/03/25 22:00 03/07/25 15:00 25 MLS/HR Linezolid 300 ml @ 150 mls/hr Q12HR IV 03/03/25 22:00 03/07/25 10:03 150 MLS/HR Lactulose 30 ml DAILY PO 03/04/25 10:00 03/07/25 10:03 30 ML Enteral Nutritional Formula 1,000 ml 30ML/HR GT 03/04/25 14:15 Metoclopramide HCl 10 mg Q8HR IV 03/05/25 22:00 03/07/25 15:00 10 MG Oseltamivir Phosphate 30 mg Q12HR PO 03/05/25 22:00 03/10/25 21:59 03/07/25 10:03 30 MG Enoxaparin Sodium 60 mg Q12HR SC 03/06/25 22:00 03/07/25 10:04 60 MG Sodium Chloride 1,000 ml @ 75 mls/hr [id number] IV 03/06/25 18:45 03/07/25 14:59 75 MLS/HR Hydrocortisone Sodium Succinate 50 mg Q8HR IV 03/07/25 22:00 objective HEENT pupils are reactive Neck is supple oxygen supplementation at the time of my visit at 4:00 p.m. CV is S1-S2 regular rate and rhythm Respiratory diminished breath sounds bases GI positive bowel sound Extremity no edema [employer] no motor deficit laboratory and microbiology Laboratory Tests 03/07/25 03:28 Test 03/07/25 03:28 Range/Units Serum Glucose 113 H 74-106 mg/dL Problems(with codes): (1) Influenza B (2) Elevated liver enzymes (3) Amphetamine abuse (4) Hiatal hernia (5) Abdominal pain (6) Acute pancreatitis (7) Cholelithiasis (8) CHF (congestive heart failure) (9) ARF (acute renal failure) Prognosis Plan Continue current management and monitor labs Advance tube feedings to goal rate of 45 Possible CPAP trial tomorrow once her sedation wears off I will follow up patient with you Dietary Evaluation Review Comments: 1) Liberalizing to 2gm Na diet 2) Monitor PO intake, lab values, weight trend, and I/O Expected Outcomes/Goals: To meet >75% estimated needs Fu 3-5 days Plan discussed with: Other (BENIGNO Nurse) TRACY FORD MD Mar 07, 2025 19:35
[2025-03-07] MEDS: HYDROCORTISONE SOD SUCC 100 MG/2ML INJ VIAL IV SCH (21:47)
[2025-03-08] VITALS (109 sets, daily range): BP systolic 85–180; BP diastolic 43–103; PULSE 97–136; RESP 10–30; TEMP 97.2–99.7; O2SAT 87–99
[2025-03-08 03:51] LABS: Hemoglobin 10.6 g/dL (12.2-16.2)
[2025-03-08 03:55] LABS: Hematocrit 33.7 % (36.0-46.0); Mean Corpuscular Hemoglobin 26.0 pg (28.0-32.0); Mean Corpuscular Volume 83.1 fL (80.0-100.0); Nucleated Red Blood Cells % 0.3 %
[2025-03-08 04:13] LABS: Alkaline Phosphatase 71 U/L (46-116); Anion Gap 9 (5-15); BUN/Creatinine Ratio 21.1 (10.0-20.0); Magnesium 2.3 mg/dL (1.6-2.6); Potassium 3.6 mmol/L (3.5-5.1); Sodium 142 mmol/L (136-145)
[2025-03-08 04:14] LABS: Bilirubin, Total 0.9 mg/dL (0.2-1.0)
[2025-03-08 04:36] LABS: Alanine Aminotransferase 174 U/L (7-40); Albumin 3.0 g/dL (3.2-4.8); Blood Urea Nitrogen 26 mg/dL (9-23); Calcium 8.5 mg/dL (8.7-10.4); Carbon Dioxide 35 mmol/L (20-31); Chloride 98 mmol/L (98-107); Glucose 122 mg/dL (74-106); Total Protein 5.3 g/dL (5.7-8.2)
--- NOTE | 2025-03-08 05:21 | DVH ---
CHEST RADIOGRAPH Indication: MECHANICAL VENTILATION Technique: Single frontal view of the chest was obtained COMPARISON: XY CHEST PORTABLE on DOS: 03/07/25, XY CHEST PORTABLE on DOS: 03/06/25, XY CHEST XRAY 1 V IEW on DOS: 03/05/25, XY CHEST PORTABLE on DOS: 03/04/25, XY CHEST PORTABLE on DOS: 03/04/25 FINDINGS: Lines and Tubes: Endotracheal tube, enteric catheter and right central venous catheter in satisfactor y position. Left chest wall AICD. Lungs: Pulmonary vascular congestion, unchanged. Pleura: No effusion. No pneumothorax. Cardiomediastinal contours: Cardiomegaly. Bones: Unremarkable. IMPRESSION: Lines and tubes in satisfactory position. No significant interval change.
[2025-03-08 07:20] LABS: Base Excess 8.5 mmol/L (-2.0-3.0)
--- NOTE | 2025-03-08 09:11 | DVHPN2 ---
Progress Note - Dictate Date Seen: Mar 08, 2025 Medical Necessity Reason Pt with a Central, PICC or Fol: No Subjective Patient is on intubation but not sedated On mechanical ventilation for acute on chronic hypoxic Respiratory Failure Patient has persistent Leukocytosis (12.9k) vital signs Vital Sign Date Time Temp Pulse Resp B/P (MAP) Pulse Ox O2 Delivery O2 Flow Rate FiO2 03/08/25 07:34 112 15 112/67 (82) 96 40 03/08/25 06:45 98.2 208.8 03/08/25 05:52 Mechanical Ventilator+ 03/07/25 20:00 0 Total Intake and Output 03/07/25 03/07/25 03/08/25 15:00 23:00 07:00 Intake Total 1198.252 ml 1396.000 ml 964.377 ml Output Total 200 ml 300 ml Balance 1198.252 ml 1196.000 ml 664.377 ml medications Current Medications Medications Dose Ordered Sig/Jose Luis Route Start Time Stop Time Status Last Admin Dose Admin Ondansetron HCl 4 mg Q6HP PRN IV 02/25/25 23:00 02/27/25 17:24 4 MG Pantoprazole Sodium 40 mg DAILY IV 02/26/25 10:00 03/07/25 10:03 40 MG Acetaminophen 650 mg Q6HPRN PRN PO 02/25/25 23:00 02/26/25 02:51 650 MG Lorazepam 1 mg Q6HP PRN PO 02/27/25 16:10 03/03/25 05:19 1 MG Guaifenesin 200 mg Q4HP PRN PO 02/28/25 15:00 03/03/25 05:19 200 MG Albuterol 2.5 mg Q4HWA NEB 02/28/25 18:00 03/08/25 06:21 2.5 MG Ipratropium [place] 0.5 mg Q4HWA NEB 02/28/25 18:00 03/08/25 06:21 0.5 MG Albuterol 2.5 mg Q2HPRN PRN NEB 02/28/25 16:00 03/01/25 03:40 2.5 MG Ipratropium [place] 0.5 mg Q2HPRN PRN NEB 02/28/25 16:00 03/01/25 03:40 0.5 MG Aspirin 81 mg DAILY PO 03/02/25:00 03/07/25 10:03 81 MG Propofol 100 ml @ 1.854 mls/ hr Q24H IV 03/03/25 16:15 Midazolam HCl 50 ml @ 1 mls/hr Q24H IV 03/03/25 16:15 03/06/25 22:34 2 MLS/HR Fentanyl Citrate 250 ml @ 2.5 mls/hr Q24H IV 03/03/25 16:15 03/07/25 10:05 7.5 MLS/HR Norepinephrine Bitartrate 32 mg/ Sodium Chloride 250 ml @ 0.938 mls/ hr Q24H IV 03/03/25 17:30 03/07/25 14:41 1.875 MLS/HR Vasopressin 20 units/Sodium Chloride 100 ml @ 9 mls/hr Q11H7M IV 03/03/25 17:30 03/05/25 16:34 9 MLS/HR Vancomycin HCl 0 ml @ 0 mls/hr UD IV 03/03/25 18:45 UNV Piperacillin Sod/ Tazobactam Sod 100 ml @ 25 mls/hr Q8HR IV 03/03/25 22:00 03/08/25 06:27 25 MLS/HR Lactulose 30 ml DAILY PO 03/04/25 10:00 03/07/25 10:03 30 ML Enteral Nutritional Formula 1,000 ml 30ML/HR GT 03/04/25 14:15 Metoclopramide HCl 10 mg Q8HR IV 03/05/25 22:00 03/08/25 06:27 10 MG Oseltamivir Phosphate 30 mg Q12HR PO 03/05/25 22:00 03/10/25 21:59 03/07/25 21:47 30 MG Enoxaparin Sodium 60 mg Q12HR SC 03/06/25 22:00 03/07/25 21:47 60 MG Sodium Chloride 1,000 ml @ 75 mls/hr [id number] IV 03/06/25 18:45 03/08/25 05:55 75 MLS/HR Hydrocortisone Sodium Succinate 50 mg Q8HR IV 03/07/25 22:00 03/08/25 06:27 50 MG objective General intubated and sedated HEENT: Atraumatic,intubated Neck: No swelling Lungs: Equal air entry and clear to auscultation Cardiovascular: S1 S2 heard no murmur Abdomen: Soft nontender, no organomegaly, nondistended Neuro: Currently off sedation laboratory and microbiology Laboratory Tests 03/08/25 02:59 Test 03/08/25 02:59 Range/Units Serum Glucose 122 H 74-106 mg/dL Assessment/Plan A 64-year-old female Shock due to cardiogenic versus septic Influenza B pneumonia Acute hypoxic respiratory failure - on Mechanical ventilation Hepatitis-C antibody positive Congestive heart failure Apical thrombus Severe pulmonary hypertension Methamphetamine abuse Acute kidney injury Noncompliance Tobacco use COPD Recommendations she is off Dopamine and VAsopressin. continues to be on nor epi.. she has multiorgan failure due to underlying history of pulmonary hypertension, CHF, meth abuse She is intubated but not sedated. Patient is not awake Continue Tamiflu x 5 days total Reviewed all the cultures from the admission until now which are negative except for influenza B Antibiotics history Azithromycin 02/25 until now Ceftriaxone 02/25- 03/03 Linezolid 03/03- now Zosyn: 03/03- now Tamiflu 03/05- now MRSA NAAT is negative, DC Linezolid stopped Azithromycin currently on Zosyn, will stop after 5 days. CXR is likely pulm edema with viral pneumonia; fio2 is 40% WBC count is elevated 12.9 k CXR shows bilateral pleural effusion reviewed Multiple subspecialties are on board such as Cardiology, Nephrology Overall prognosis of this patient is very poor Critical time 50 minutes spent during the encounter plan discussed with treatment team Dietary Evaluation Review Comments: 1) Liberalizing to 2gm Na diet 2) Monitor PO intake, lab values, weight trend, and I/O Expected Outcomes/Goals: To meet >75% estimated needs Fu 3-5 days Plan discussed with: Other ALEJANDRO DOUGHERTY MD Mar 08, 2025 09:11
--- NOTE | 2025-03-08 11:56 | DVHPN2 ---
Progress Note - Dictate Date Seen: Mar 08, 2025 Medical Necessity Reason Pt with a Central, PICC or Fol: No vital signs Vital Sign Date Time Temp Pulse Resp B/P (MAP) Pulse Ox O2 Delivery O2 Flow Rate FiO2 03/08/25 10:24 114 17 115/59 (77) 96 40 03/08/25 06:45 98.2 208.8 03/08/25 05:52 Mechanical Ventilator+ 03/07/25 20:00 0 Total Intake and Output 03/07/25 03/07/25 03/08/25 15:00 23:00 07:00 Intake Total 1198.252 ml 1396.000 ml 964.377 ml Output Total 200 ml 300 ml Balance 1198.252 ml 1196.000 ml 664.377 ml medications Current Medications Medications Dose Ordered Sig/Jose Luis Route Start Time Stop Time Status Last Admin Dose Admin Ondansetron HCl 4 mg Q6HP PRN IV 02/25/25 23:00 02/27/25 17:24 4 MG Pantoprazole Sodium 40 mg DAILY IV 02/26/25 10:00 03/08/25 09:12 40 MG Acetaminophen 650 mg Q6HPRN PRN PO 02/25/25 23:00 02/26/25 02:51 650 MG Lorazepam 1 mg Q6HP PRN PO 02/27/25 16:10 03/03/25 05:19 1 MG Guaifenesin 200 mg Q4HP PRN PO 02/28/25 15:00 03/03/25 05:19 200 MG Albuterol 2.5 mg Q4HWA NEB 02/28/25 18:00 03/08/25 10:24 2.5 MG Ipratropium [place] 0.5 mg Q4HWA NEB 02/28/25 18:00 03/08/25 10:24 0.5 MG Albuterol 2.5 mg Q2HPRN PRN NEB 02/28/25 16:00 03/01/25 03:40 2.5 MG Ipratropium [place] 0.5 mg Q2HPRN PRN NEB 02/28/25 16:00 03/01/25 03:40 0.5 MG Aspirin 81 mg DAILY PO 03/02/25 10:00 03/07/25 10:03 81 MG Propofol 100 ml @ 1.854 mls/ hr Q24H IV 03/03/25 16:15 Midazolam HCl 50 ml @ 1 mls/hr Q24H IV 03/03/25 16:15 03/06/25 22:34 2 MLS/HR Fentanyl Citrate 250 ml @ 2.5 mls/hr Q24H IV 03/03/25 16:15 03/07/25 10:05 7.5 MLS/HR Norepinephrine Bitartrate 32 mg/ Sodium Chloride 250 ml @ 0.938 mls/ hr Q24H IV 03/03/25 17:30 03/07/25 14:41 1.875 MLS/HR Vasopressin 20 units/Sodium Chloride 100 ml @ 9 mls/hr Q11H7M IV 03/03/25 17:30 03/05/25 16:34 9 MLS/HR Vancomycin HCl 0 ml @ 0 mls/hr UD IV 03/03/25 18:45 UNV Piperacillin Sod/ Tazobactam Sod 100 ml @ 25 mls/hr Q8HR IV 03/03/25 22:00 03/08/25 06:27 25 MLS/HR Lactulose 30 ml DAILY PO 03/04/25 10:00 03/08/25 09:12 30 ML Enteral Nutritional Formula 1,000 ml 30ML/HR GT 03/04/25 14:15 Metoclopramide HCl 10 mg Q8HR IV 03/05/25 22:00 03/08/25 06:27 10 MG Oseltamivir Phosphate 30 mg Q12HR PO 03/05/25 22:00 03/10/25 21:59 03/08/25 09:12 30 MG Enoxaparin Sodium 60 mg Q12HR SC 03/06/25 22:00 03/08/25 09:12 60 MG Sodium Chloride 1,000 ml @ 75 mls/hr [id number] IV 03/06/25 18:45 03/08/25 05:55 75 MLS/HR Hydrocortisone Sodium Succinate 50 mg Q8HR IV 03/07/25 22:00 03/08/25 06:27 50 MG laboratory and microbiology Laboratory Tests 03/08/25 02:59 Test 03/08/25 02:59 Range/Units Serum Glucose 122 H 74-106 mg/dL Assessment/Plan Patient is seen and examined in the ICU Diagnosis Influenza B Pneumonia Acute hypoxemic respiratory failure Renal failure Metabolic acidosis Patient seen and examined in ICU Events Remains on the ventilator S/p intubation PEEP 5, FiO2 30% off sedation not waking up Labs and imaging reviewed Positive for Hepatitis B Chest x-ray reviewed ABG reviewed Management plan Continue vent support Sedation holiday daily If patient follows commands, proceed to weaning trial Pressure support 11/26, extubate when ready Daily ABGs and x-rays Continue bicarb drip and antibiotics Prognosis poor Family updated Echo care time 35 minutes Dietary Evaluation Review Comments: 1) Liberalizing to 2gm Na diet 2) Monitor PO intake, lab values, weight trend, and I/O Expected Outcomes/Goals: To meet >75% estimated needs Fu 3-5 days Plan discussed with: Patient (rn) EVANS UGARTE MD Mar 08, 2025 11:56
--- NOTE | 2025-03-08 16:16 | DVHPN2 ---
Consult Progress Note Subjective Other Systems: The patient remains mechanically ventilated, now off of sedations. Patient on low-dose vasopressor Objective vital signs Vital Sign Date Time Temp Pulse Resp B/P (MAP) Pulse Ox O2 Delivery O2 Flow Rate FiO2 03/08/25 15:28 136 30 144/72 (96) 90 40 03/08/25 08:00 Mechanical Ventilator+ 03/08/25 06:45 98.2 208.8 03/07/25 20:00 0 Total Intake and Output 03/07/25 03/07/25 03/08/25 15:00 23:00 07:00 Intake Total 1198.252 ml 1396.000 ml 964.377 ml Output Total 200 ml 300 ml Balance 1198.252 ml 1196.000 ml 664.377 ml medications Current Medications Medications Dose Ordered Sig/Jose Luis Route Start Time Stop Time Status Last Admin Dose Admin Ondansetron HCl 4 mg Q6HP PRN IV 02/25/25 23:00 02/27/25 17:24 4 MG Pantoprazole Sodium 40 mg DAILY IV 02/26/25 10:00 03/08/25 09:12 40 MG Acetaminophen 650 mg Q6HPRN PRN PO 02/25/25 23:00 02/26/25 02:51 650 MG Lorazepam 1 mg Q6HP PRN PO 02/27/25 16:10 03/03/25 05:19 1 MG Guaifenesin 200 mg Q4HP PRN PO 02/28/25 15:00 03/03/25 05:19 200 MG Albuterol 2.5 mg Q4HWA NEB 02/28/25 18:00 03/08/25 13:52 2.5 MG Ipratropium [place] 0.5 mg Q4HWA NEB 02/28/25 18:00 03/08/25 13:52 0.5 MG Albuterol 2.5 mg Q2HPRN PRN NEB 02/28/25 16:00 03/01/25 03:40 2.5 MG Ipratropium [place] 0.5 mg Q2HPRN PRN NEB 02/28/25 16:00 03/01/25 03:40 0.5 MG Aspirin 81 mg DAILY PO 03/02/25 10:00 03/07/25 10:03 81 MG Propofol 100 ml @ 1.854 mls/ hr Q24H IV 03/03/25 16:15 03/08/25 16:04 1.854 MLS/HR Midazolam HCl 50 ml @ 1 mls/hr Q24H IV 03/03/25 16:15 03/06/25 22:34 2 MLS/HR Fentanyl Citrate 250 ml @ 2.5 mls/hr Q24H IV 03/03/25 16:15 03/08/25 15:55 2.5 MLS/HR Norepinephrine Bitartrate 32 mg/ Sodium Chloride 250 ml @ 0.938 mls/ hr Q24H IV 03/03/25 17:30 03/07/25 14:41 1.875 MLS/HR Vasopressin 20 units/Sodium Chloride 100 ml @ 9 mls/hr Q11H7M IV 03/03/25 17:30 03/05/25 16:34 9 MLS/HR Vancomycin HCl 0 ml @ 0 mls/hr UD IV 03/03/25 18:45 UNV Piperacillin Sod/ Tazobactam Sod 100 ml @ 25 mls/hr Q8HR IV 03/03/25 22:00 03/08/25 14:26 25 MLS/HR Lactulose 30 ml DAILY PO 03/04/25 10:00 03/08/25 09:12 30 ML Enteral Nutritional Formula 1,000 ml 30ML/HR GT 03/04/25 14:15 Metoclopramide HCl 10 mg Q8HR IV 03/05/25 22:00 03/08/25 14:26 10 MG Oseltamivir Phosphate 30 mg Q12HR PO 03/05/25 22:00 03/10/25 21:59 03/08/25 09:12 30 MG Enoxaparin Sodium 60 mg Q12HR SC 03/06/25 22:00 03/08/25 09:12 60 MG Sodium Chloride 1,000 ml @ 75 mls/hr [id number] IV 03/06/25 18:45 03/08/25 05:55 75 MLS/HR Hydrocortisone Sodium Succinate 50 mg Q8HR IV 03/07/25 22:00 03/08/25 14:26 50 MG Examination: GENERAL:Abnormal, LUNGS:Abnormal (Mechanically ventilated), CVS:Normal, NEURO:Abnormal (Off sedations, not responding to verbal or tactile stimuli) laboratory and microbiology Laboratory Tests 03/08/25 02:59 Test 03/08/25 02:59 Range/Units Serum Glucose 122 H 74-106 mg/dL Problem List/Assessment/Plan Problem List/Assessment/Plan Chronic HFrEF, NYHA class III Apical thrombus Paroxysmal atrial fibrillation, Stage 3A (on Amiodarone at home) Severe coronary artery disease with questionable stent placement Ischemic cardiomyopathy Presence of ICD ([employer]) Septic shock Hypertension Dyslipidemia Acute hypoxic respiratory failure secondary to pneumonia Influenza B positive Pulmonary hypertension, severe degree COPD Transaminitis Hyperkalemia Acute kidney injury Thyroid disease Methamphetamine abuse Tobacco use Medical noncompliance Plan/Recommendations (Dr. Gibbs): * Transthoracic echocardiogram reveals EF 15-20% with apical thrombus. * Continue therapeutic Lovenox, transition to DOAC with Eliquis prior to discharge * Continue vasopressors for hemodynamic support (Quad concentration to prevent fluid overload) * Unable to continue guideline directed medical therapy for CHF given vasopressor support * Strict intake and output, daily weights, maintain fluid restriction * [id number] VASc score: 5 points, HAS-BLED score: 2 points * Therapeutic Lovenox while inpatient, transition to NOAC prior to discharge * Unable to initiate beta-wanda given current vasopressor use * Restart home-dose amiodarone therapy with improved LFTs * Antiplatelet therapy * Resume lipid-lowering agent with improved liver enzymes * Close cardiac surveillance * Antibiotics per primary care team Case discussed with . Transthoracic echocardiogram revealed an apical thrombus. Per guideline recommendations, Coumadin therapy is recommended. Given patient medical noncompliance and chronic meth use, doubt patient will be compliant with Coumadin Clinic. We will recommend off-label use of NOAC therapy Eliquis. [id number] VASc score: 5 points, HAS-BLED score: 2 points. Continue therapeutic Lovenox while inpatient, consider DOAC prior to discharge. Unable to initiate beta-wanda for rate control given current vasopressor therapy. The patient's daughter confirms that the patient takes amiodarone therapy at home. At this time we will hold amiodarone given elevated LFTs. Consider reinitiating amiodarone with improvement in LFTs. Thank you for allowing us to care for this patient. Please call with any questions or concerns. Critical care time spent: 38 minutes. This medical document was created using an electronic medical record system with voice recognition software and computerized dictation system. Although this document has been carefully reviewed, there might still be some phonetic and typographical errors. Occasional wrong-word or ``sound-alike substitutions may have occurred due to the inherent limitations of voice recognition software. These areas are purely typographical due to imperfections of the software programs and do not reflect any compromise in the patient's medical care. Please read the chart carefully and recognize, using context, where these substitutions have occurred. Plan discussed with: Other (Bedside RN, and sister at bedside) Dietary Evaluation Review Comments: 1) Liberalizing to 2gm Na diet 2) Monitor PO intake, lab values, weight trend, and I/O Expected Outcomes/Goals: To meet >75% estimated needs Fu 3-5 days Date of Service: Mar 08, 2025 Billing Provider: ADELSO HALL Common Visit Codes: [id number] CARE 30-74 MIN ADELSO HALL Mar 08, 2025 16:16
--- NOTE | 2025-03-08 17:12 | DVHPN2 ---
Subjective Patient is currently off of dopamine, on low-dose of Levophed, but patient is not waking up. Reviewed: Care Plan Changes from previous H/P or p: No Changes Objective Vitals Vital Signs Date Time Temp Pulse Resp B/P (MAP) Pulse Ox O2 Delivery O2 Flow Rate FiO2 03/08/25 15:28 136 30 144/72 (96) 90 40 03/08/25 08:00 Mechanical Ventilator+ 03/08/25 06:45 98.2 208.8 03/07/25 20:00 0 Intake/Output Intake and Output 03/08/25 07:00 Intake Total 3558.629 ml Output Total 500 ml Balance 3058.629 ml Intake Oral 0 ml IV Total 2847.629 ml Tube Feeding 711 ml Output Urine Total 500 ml Stool Total 0 ml Exam HEENT pupils are reactive Neck is supple CV is S1-S2 regular rate and rhythm Respiratory diminished breath sounds bases , bilateral basal crackles GI positive bowel sound Extremity no edema SUSHI CHEF, toes, currently off of sedation Medications Current Medications Medications Dose Ordered Sig/Jose Luis Route Start Time Stop Time Status Last Admin Dose Admin Ondansetron HCl 4 mg Q6HP PRN IV 02/25/25 23:00 02/27/25 17:24 4 MG Pantoprazole Sodium 40 mg DAILY IV 02/26/25 10:00 03/08/25 09:12 40 MG Acetaminophen 650 mg Q6HPRN PRN PO 02/25/25 23:00 02/26/25 02:51 650 MG Lorazepam 1 mg Q6HP PRN PO 02/27/25 16:10 03/03/25 05:19 1 MG Guaifenesin 200 mg Q4HP PRN PO 02/28/25 15:00 03/03/25 05:19 200 MG Albuterol 2.5 mg Q4HWA NEB 02/28/25 18:00 03/08/25 13:52 2.5 MG Ipratropium [place] 0.5 mg Q4HWA NEB 02/28/25 18:00 03/08/25 13:52 0.5 MG Albuterol 2.5 mg Q2HPRN PRN NEB 02/28/25 16:00 03/01/25 03:40 2.5 MG Ipratropium [place] 0.5 mg Q2HPRN PRN NEB 02/28/25 16:00 03/01/25 03:40 0.5 MG Aspirin 81 mg DAILY PO 03/02/25 10:00 03/07/25 10:03 81 MG Propofol 100 ml @ 1.854 mls/ hr Q24H IV 03/03/25 16:15 03/08/25 16:04 1.854 MLS/HR Midazolam HCl 50 ml @ 1 mls/hr Q24H IV 03/03/25 16:15 03/06/25 22:34 2 MLS/HR Fentanyl Citrate 250 ml @ 2.5 mls/hr Q24H IV 03/03/25 16:15 03/08/25 15:55 2.5 MLS/HR Norepinephrine Bitartrate 32 mg/ Sodium Chloride 250 ml @ 0.938 mls/ hr Q24H IV 03/03/25 17:30 03/07/25 14:41 1.875 MLS/HR Vasopressin 20 units/Sodium Chloride 100 ml @ 9 mls/hr Q11H7M IV 03/03/25 17:30 03/05/25 16:34 9 MLS/HR Vancomycin HCl 0 ml @ 0 mls/hr UD IV 03/03/25 18:45 UNV Piperacillin Sod/ Tazobactam Sod 100 ml @ 25 mls/hr Q8HR IV 03/03/25 22:00 03/08/25 14:26 25 MLS/HR Lactulose 30 ml DAILY PO 03/04/25 10:00 03/08/25 09:12 30 ML Enteral Nutritional Formula 1,000 ml 30ML/HR GT 03/04/25 14:15 Metoclopramide HCl 10 mg Q8HR IV 03/05/25 22:00 03/08/25 14:26 10 MG Oseltamivir Phosphate 30 mg Q12HR PO 03/05/25 22:00 03/10/25 21:59 03/08/25 09:12 30 MG Enoxaparin Sodium 60 mg Q12HR SC 03/06/25 22:00 03/08/25 09:12 60 MG Sodium Chloride 1,000 ml @ 75 mls/hr [id number] IV 03/06/25 18:45 03/08/25 05:55 75 MLS/HR Hydrocortisone Sodium Succinate 50 mg Q8HR IV 03/07/25 22:00 03/08/25 14:26 50 MG Laboratory Results Laboratory Tests 03/08/25 02:59 Chemistry Test 03/08/25 02:59 Albumin 3.0 g/dL (3.2-4.8) L Calcium Level 8.5 mg/dL (8.7-10.4) L Magnesium Level 2.3 mg/dL (1.6-2.6) Total Protein 5.3 g/dL (5.7-8.2) L LFT Test 03/08/25 02:59 Alanine Aminotransferase (ALT) 174 U/L (7-40) H Alkaline Phosphatase 71 U/L (46-116) Aspartate Amino Transferase (AST) 138 U/L (13-40) H Total Bilirubin 0.9 mg/dL (0.2-1.0) Urinalysis Test 03/05/25 10:40 Urine Color Light-yellow (Yellow) Urine Clarity Clear (Clear) Urine pH 7.0 (5.0-9.0) Urine Specific [place] 1.009 (1.001-1.035) Urine Protein Negative (Negative) Urine Ketones Negative (Negative) Urine Blood Negative /uL (Negative) Urine Nitrite Negative (Negative) Urine Bilirubin Negative (Negative) Urine Urobilinogen Normal mg/dL (Negative) Urine Leukocyte Esterase Negative /uL (Negative) Urine RBC 1 /hpf (0 - 4) Urine Microscopic WBC 1 /HPF (0-5) Urine Squamous Epithelial Cells None seen /hpf (<5) Urine Bacteria None seen /hpf (None Seen) Urine Yeast (Budding) Few /hpf (None Seen) Urine Creatinine 11.91 mg/dL (30.0-125.0) L Urine Protein/Creatinine Ratio 1.23 Urine Sodium 77 mmol/L (40-220) Urine Glucose 4+ mg/dL (Normal) H Urine Total Protein 14.7 mg/dL (1-14) H Blood Gas Results Test 03/08/25 06:44 Arterial Blood pH 7.488 (7.350-7.450) FiO2 % 40.0 Microbiology Microbiology Date/Time Source Procedure Growth Status 03/05/25 15:00 Nose MRSA Screen - Final Complete 03/03/25 22:09 Urine - [place] Urine Culture - Final Complete 03/03/25 19:15 Blood Blood Culture - Preliminary NO GROWTH AFTER 72 HOURS OF INCUBATION. Resulted Assessment/Plan Assessment/Plan 64-year-old female with a known history of pulmonary hypertension, ischemic cardiomyopathy, CAD status post PCI, COPD, chronic meth use presented to the hospital with the abdominal pain patient was found to have 1. acute hypoxic respiratory failure requiring intubation and mechanical ventilation, currently on FiO2 40% with a PEEP of five 2. Abdominal pain, acute cholecystitis has been ruled out 3. Suspected pneumonia, on IV antibiotic 4. Acute on chronic congestive heart failure exacerbation with systolic dysfunction 5. Relative hypotension, currently on vasopressor 5. Chronic meth use 6. Acute kidney injury likely hemodynamically mediated, currently off of diuretics 7. Chronic tobacco use disorder/marijuana use - patient is currently on intubated but off sedation, on IV antibiotics follow up cultures, discontinue Lasix, monitor urine output, continue IV vasopressor -patient's remains critical prognosis remains guarded. -daughter updated at bedside. CPAP trial once patient is more awake alert and meets criteria for CPAP trial. Plan discussed with: Daughter My Orders Orders - PING SANDERSON MD Procedure Category Date Status Time Chest Portable XY 03/08/25 Resulted 04:00 Abg W/ Co-Ox RT 03/08/25 Logged 04:00 Date of Service: Mar 08, 2025 Billing Provider: PING SANDERSON MD Common Visit Codes: NOT BILLABLE PING SANDERSON MD Mar 08, 2025 17:12
--- NOTE | 2025-03-08 17:38 | DVHPN2 ---
Progress Note Date Seen: Mar 08, 2025 Medical Necessity Reason Pt with a Central, PICC or Fol: No Subjective Patient reports: Other Review of Systems: NEURO:Abnormal Objective vital signs Vital Sign Date Time Temp Pulse Resp B/P (MAP) Pulse Ox O2 Delivery O2 Flow Rate FiO2 03/08/25 15:28 136 30 144/72 (96) 90 40 03/08/25 08:00 Mechanical Ventilator+ 03/08/25 06:45 98.2 208.8 03/07/25 20:00 0 Total Intake and Output 03/07/25 03/07/25 03/08/25 15:00 23:00 07:00 Intake Total 1198.252 ml 1396.000 ml 964.377 ml Output Total 200 ml 300 ml Balance 1198.252 ml 1196.000 ml 664.377 ml medications Current Medications Medications Dose Ordered Sig/Jose Luis Route Start Time Stop Time Status Last Admin Dose Admin Ondansetron HCl 4 mg Q6HP PRN IV 02/25/25 23:00 02/27/25 17:24 4 MG Pantoprazole Sodium 40 mg DAILY IV 02/26/25 10:00 03/08/25 09:12 40 MG Acetaminophen 650 mg Q6HPRN PRN PO 02/25/25 23:00 02/26/25 02:51 650 MG Lorazepam 1 mg Q6HP PRN PO 02/27/25 16:10 03/03/25 05:19 1 MG Guaifenesin 200 mg Q4HP PRN PO 02/28/25 15:00 03/03/25 05:19 200 MG Albuterol 2.5 mg Q4HWA NEB 02/28/25 18:00 03/08/25 13:52 2.5 MG Ipratropium [place] 0.5 mg Q4HWA NEB 02/28/25 18:00 03/08/25 13:52 0.5 MG Albuterol 2.5 mg Q2HPRN PRN NEB 02/28/25 16:00 03/01/25 03:40 2.5 MG Ipratropium [place] 0.5 mg Q2HPRN PRN NEB 02/28/25 16:00 03/01/25 03:40 0.5 MG Aspirin 81 mg DAILY PO 03/02/25 10:00 03/07/25 10:03 81 MG Propofol 100 ml @ 1.854 mls/ hr Q24H IV 03/03/25 16:15 03/08/25 16:04 1.854 MLS/HR Midazolam HCl 50 ml @ 1 mls/hr Q24H IV 03/03/25 16:15 03/06/25 22:34 2 MLS/HR Fentanyl Citrate 250 ml @ 2.5 mls/hr Q24H IV 03/03/25 16:15 03/08/25 15:55 2.5 MLS/HR Norepinephrine Bitartrate 32 mg/ Sodium Chloride 250 ml @ 0.938 mls/ hr Q24H IV 03/03/25 17:30 03/07/25 14:41 1.875 MLS/HR Vasopressin 20 units/Sodium Chloride 100 ml @ 9 mls/hr Q11H7M IV 03/03/25 17:30 03/05/25 16:34 9 MLS/HR Vancomycin HCl 0 ml @ 0 mls/hr UD IV 03/03/25 18:45 UNV Piperacillin Sod/ Tazobactam Sod 100 ml @ 25 mls/hr Q8HR IV 03/03/25 22:00 03/08/25 14:26 25 MLS/HR Lactulose 30 ml DAILY PO 03/04/25 10:00 03/08/25 09:12 30 ML Enteral Nutritional Formula 1,000 ml 30ML/HR GT 03/04/25 14:15 Metoclopramide HCl 10 mg Q8HR IV 03/05/25 22:00 03/08/25 14:26 10 MG Oseltamivir Phosphate 30 mg Q12HR PO 03/05/25 22:00 03/10/25 21:59 03/08/25 09:12 30 MG Enoxaparin Sodium 60 mg Q12HR SC 03/06/25 22:00 03/08/25 09:12 60 MG Hydrocortisone Sodium Succinate 50 mg Q8HR IV 03/07/25 22:00 03/08/25 14:26 50 MG Examination: LUNGS:Abnormal, MSK:Abnormal, NEURO:Abnormal laboratory and microbiology Laboratory Tests 03/08/25 02:59 Test 03/08/25 02:59 Range/Units Serum Glucose 122 H 74-106 mg/dL Microbiology Date/Time Source Procedure Growth Status 03/05/25 15:00 Nose MRSA Screen - Final Complete 03/03/25 22:09 Urine - [place] Urine Culture - Final Complete 03/03/25 19:15 Blood Blood Culture - Preliminary NO GROWTH AFTER 72 HOURS OF INCUBATION. Resulted Problem List/Assessment/Plan Problem List/Assessment/Plan Acute kidney injury secondary hemodynamic mediated Acute respiratory failure, patient intubated on ventilator Septic shock Hypokalemia due to potassium depletion Hypochloremic Metabolic alkalosis due to excessive diuresis Hypoalbuminemia Hyperglycemia Methamphetamine abuse Chronic systolic Congestive heart failure, ejection fraction 15-20% AICD Influenza B positive Hiatal hernia recs dc ivf lasix iv daily TARA worse as bp dropped Plan discussed with: Daughter, Other My Orders My Orders Orders - LORENA CUMMINGS MD Procedure Category Date Status Time Furosemide Injection PHA 03/08/25 Logged (Lasix Injection) 17:45 Dietary Evaluation Review Comments: 1) Liberalizing to 2gm Na diet 2) Monitor PO intake, lab values, weight trend, and I/O Expected Outcomes/Goals: To meet >75% estimated needs Fu 3-5 days LORENA CUMMINGS MD Mar 08, 2025 17:38
[2025-03-08] MEDS: FUROSEMIDE 40 MG/4 ML VIAL IV ONE (19:18)
--- NOTE | 2025-03-08 21:20 | DVHPN2 ---
Progress Note - Dictate Date Seen: Mar 08, 2025 Medical Necessity Reason Pt with a Central, PICC or Fol: No Subjective Patient was seen in [facility] still intubated off sedation Tolerating tube feedings at 40ml/hr Liver enzymes are trending down Leukocytosis is improving Renal function is improving Ejection fraction is 15% and she is diagnosed with the apical thrombus Patient history of severe coronary artery disease She also had mild diffuse abdominal pain and other chronic pain syndrome Patient has cholelithiasis with a HIDA scan was negative vital signs Vital Sign Date Time Temp Pulse Resp B/P (MAP) Pulse Ox O2 Delivery O2 Flow Rate FiO2 03/08/25 20:08 117 22 114/66 (82) 94 40 03/08/25 18:45 99.3 210.7 03/08/25 18:00 Mechanical Ventilator+ 03/07/25 20:00 0 Total Intake and Output 03/07/25 03/07/25 03/08/25 14:59 22:59 06:59 Intake Total 1209.315 ml 1396.000 ml 941.252 ml Output Total 200 ml 300 ml Balance 1209.315 ml 1196.000 ml 641.252 ml medications Current Medications Medications Dose Ordered Sig/Jose Luis Route Start Time Stop Time Status Last Admin Dose Admin Ondansetron HCl 4 mg Q6HP PRN IV 02/25/25 23:00 02/27/25 17:24 4 MG Pantoprazole Sodium 40 mg DAILY IV 02/26/25 10:00 03/08/25 09:12 40 MG Acetaminophen 650 mg Q6HPRN PRN PO 02/25/25 23:00 02/26/25 02:51 650 MG Lorazepam 1 mg Q6HP PRN PO 02/27/25 16:10 03/03/25 05:19 1 MG Guaifenesin 200 mg Q4HP PRN PO 02/28/25 15:00 03/03/25 05:19 200 MG Albuterol 2.5 mg Q4HWA NEB 02/28/25 18:00 03/08/25 18:33 2.5 MG Ipratropium [place] 0.5 mg Q4HWA NEB 02/28/25 18:00 03/08/25 18:33 0.5 MG Albuterol 2.5 mg Q2HPRN PRN NEB 02/28/25 16:00 03/01/25 03:40 2.5 MG Ipratropium [place] 0.5 mg Q2HPRN PRN NEB 02/28/25 16:00 03/01/25 03:40 0.5 MG Aspirin 81 mg DAILY PO 03/02/25 10:00 03/07/25 10:03 81 MG Propofol 100 ml @ 1.854 mls/ hr Q24H IV 03/03/25 16:15 03/08/25 16:04 1.854 MLS/HR Midazolam HCl 50 ml @ 1 mls/hr Q24H IV 03/03/25 16:15 03/06/25 22:34 2 MLS/HR Fentanyl Citrate 250 ml @ 2.5 mls/hr Q24H IV 03/03/25 16:15 03/08/25 15:55 2.5 MLS/HR Norepinephrine Bitartrate 32 mg/ Sodium Chloride 250 ml @ 0.938 mls/ hr Q24H IV 03/03/25 17:30 03/07/25 14:41 1.875 MLS/HR Vasopressin 20 units/Sodium Chloride 100 ml @ 9 mls/hr Q11H7M IV 03/03/25 17:30 03/05/25 16:34 9 MLS/HR Vancomycin HCl 0 ml @ 0 mls/hr UD IV 03/03/25 18:45 UNV Piperacillin Sod/ Tazobactam Sod 100 ml @ 25 mls/hr Q8HR IV 03/03/25 22:00 03/08/25 14:26 25 MLS/HR Lactulose 30 ml DAILY PO 03/04/25 10:00 03/08/25 09:12 30 ML Enteral Nutritional Formula 1,000 ml 30ML/HR GT 03/04/25 14:15 Metoclopramide HCl 10 mg Q8HR IV 03/05/25 22:00 03/08/25 14:26 10 MG Oseltamivir Phosphate 30 mg Q12HR PO 03/05/25 22:00 03/10/25 21:59 03/08/25 09:12 30 MG Enoxaparin Sodium 60 mg Q12HR SC 03/06/25 22:00 03/08/25 09:12 60 MG Hydrocortisone Sodium Succinate 50 mg Q8HR IV 03/07/25 22:00 03/08/25 14:26 50 MG Furosemide 40 mg DAILY IV 03/09/25 10:00 objective HEENT pupils are reactive Neck is supple oxygen supplementation at the time of my visit at 4:00 p.m. CV is S1-S2 regular rate and rhythm Respiratory diminished breath sounds bases GI positive bowel sound Extremity no edema [employer] no motor deficit laboratory and microbiology Laboratory Tests 03/08/25 02:59 Test 03/08/25 02:59 Range/Units Serum Glucose 122 H 74-106 mg/dL Problems(with codes): (1) Elevated liver enzymes (2) Amphetamine abuse (3) Hiatal hernia (4) Elevated troponin (5) Abdominal pain (6) Influenza B (7) Acute pancreatitis Prognosis Plan Continue supportive care Tube feedings as tolerated CPAP trial ongoing Dietary Evaluation Review Comments: 1) Liberalizing to 2gm Na diet 2) Monitor PO intake, lab values, weight trend, and I/O Expected Outcomes/Goals: To meet >75% estimated needs Fu 3-5 days Plan discussed with: Other ([facility] Nurse) TRACY FORD MD Mar 08, 2025 21:20
[2025-03-09] VITALS (115 sets, daily range): BP systolic 78–156; BP diastolic 37–92; PULSE 83–121; RESP 8–26; TEMP 90.1–100.2; O2SAT 74–100
[2025-03-09 03:52] LABS: Hemoglobin 10.4 g/dL (12.2-16.2); Nucleated Red Blood Cells % 0.1 %
[2025-03-09 03:56] LABS: Hematocrit 33.0 % (36.0-46.0); Mean Corpuscular Hemoglobin 26.5 pg (28.0-32.0); Mean Corpuscular Volume 83.8 fL (80.0-100.0)
[2025-03-09 04:10] LABS: Anion Gap 8 (5-15); Chloride 101 mmol/L (98-107)
[2025-03-09 04:12] LABS: Calcium 8.5 mg/dL (8.7-10.4); Carbon Dioxide 36 mmol/L (20-31); Potassium 3.2 mmol/L (3.5-5.1); Sodium 145 mmol/L (136-145)
[2025-03-09 04:17] LABS: BUN/Creatinine Ratio 25.5 (10.0-20.0); Magnesium 2.2 mg/dL (1.6-2.6)
[2025-03-09 04:20] LABS: Blood Urea Nitrogen 28 mg/dL (9-23); Glucose 123 mg/dL (74-106)
[2025-03-09] MEDS: POTASSIUM CHL 20MEQ/100ML 100 ML IV SCH (06:57)
--- NOTE | 2025-03-09 08:47 | DVHPN2 ---
Progress Note - Dictate Date Seen: Mar 09, 2025 Medical Necessity Reason Pt with a Central, PICC or Fol: No Subjective Patient is on intubation but not sedated On mechanical ventilation for acute on chronic hypoxic Respiratory Failure WBC count is with in normal range vital signs Vital Sign Date Time Temp Pulse Resp B/P (MAP) Pulse Ox O2 Delivery O2 Flow Rate FiO2 03/09/25 08:17 86 03/09/25 08:04 50 03/09/25 08:04 12 96 Mechanical Ventilator+ 03/09/25 07:15 97.3 109/52 (71) 207.1 03/07/25 20:00 0 Total Intake and Output 03/08/25 03/08/25 03/09/25 15:00 23:00 07:00 Intake Total 603.752 ml 363.133 ml 540.414 ml Output Total 300 ml 920 ml Balance 603.752 ml 63.133 ml -379.586 ml medications Current Medications Medications Dose Ordered Sig/Jose Luis Route Start Time Stop Time Status Last Admin Dose Admin Ondansetron HCl 4 mg Q6HP PRN IV 02/25/25 23:00 02/27/25 17:24 4 MG Pantoprazole Sodium 40 mg DAILY IV 02/26/25 10:00 03/08/25 09:12 40 MG Acetaminophen 650 mg Q6HPRN PRN PO 02/25/25 23:00 02/26/25 02:51 650 MG Lorazepam 1 mg Q6HP PRN PO 02/27/25 16:10 03/03/25 05:19 1 MG Guaifenesin 200 mg Q4HP PRN PO 02/28/25 15:00 03/03/25 05:19 200 MG Albuterol 2.5 mg Q4HWA NEB 02/28/25 18:00 03/09/25 06:36 2.5 MG Ipratropium [place] 0.5 mg Q4HWA NEB 02/28/25 18:00 03/09/25 06:36 0.5 MG Albuterol 2.5 mg Q2HPRN PRN NEB 02/28/25 16:00 03/01/25 03:40 2.5 MG Ipratropium [place] 0.5 mg Q2HPRN PRN NEB 02/28/25 16:00 03/01/25 03:40 0.5 MG Aspirin 81 mg DAILY PO 03/02/25 10:00 03/07/25 10:03 81 MG Propofol 100 ml @ 1.854 mls/ hr Q24H IV 03/03/25 16:15 03/08/25 16:04 1.854 MLS/HR Midazolam HCl 50 ml @ 1 mls/hr Q24H IV 03/03/25 16:15 03/06/25 22:34 2 MLS/HR Fentanyl Citrate 250 ml @ 2.5 mls/hr Q24H IV 03/03/25 16:15 03/09/25 05:37 15 MLS/HR Norepinephrine Bitartrate 32 mg/ Sodium Chloride 250 ml @ 0.938 mls/ hr Q24H IV 03/03/25 17:30 03/07/25 14:41 1.875 MLS/HR Vasopressin 20 units/Sodium Chloride 100 ml @ 9 mls/hr Q11H7M IV 03/03/25 17:30 03/05/25 16:34 9 MLS/HR Vancomycin HCl 0 ml @ 0 mls/hr UD IV 03/03/25 18:45 UNV Piperacillin Sod/ Tazobactam Sod 100 ml @ 25 mls/hr Q8HR IV 03/03/25 22:00 03/09/25 06:57 25 MLS/HR Lactulose 30 ml DAILY PO 03/04/25 10:00 03/08/25 09:12 30 ML Enteral Nutritional Formula 1,000 ml 30ML/HR GT 03/04/25 14:15 Metoclopramide HCl 10 mg Q8HR IV 03/05/25 22:00 03/09/25 06:56 10 MG Oseltamivir Phosphate 30 mg Q12HR PO 03/05/25 22:00 03/10/25 21:59 03/08/25 21:53 30 MG Enoxaparin Sodium 60 mg Q12HR SC 03/06/25 22:00 03/08/25 21:51 60 MG Hydrocortisone Sodium Succinate 50 mg Q8HR IV 03/07/25 22:00 03/09/25 06:56 50 MG Furosemide 40 mg DAILY IV 03/09/25 10:00 Potassium Chloride 100 ml @ 50 mls/hr Q2H IV 03/09/25 05:45 03/09/25 09:44 03/09/25 06:57 50 MLS/HR objective General intubated and sedated HEENT: Atraumatic,intubated Neck: No swelling Lungs: Equal air entry and clear to auscultation Cardiovascular: S1 S2 heard no murmur Abdomen: Soft nontender, no organomegaly, nondistended Neuro: Currently off sedation laboratory and microbiology Laboratory Tests 03/09/25 03:33 Test 03/09/25 03:33 Range/Units Serum Glucose 123 H 74-106 mg/dL Assessment/Plan A 64-year-old female Shock due to cardiogenic versus septic Influenza B pneumonia Acute hypoxic respiratory failure - on Mechanical ventilation Hepatitis-C antibody positive Congestive heart failure Apical thrombus Severe pulmonary hypertension Methamphetamine abuse Acute kidney injury Noncompliance Tobacco use COPD Recommendations she is off Dopamine and VAsopressin. continues to be on nor epi.. she has multiorgan failure due to underlying history of pulmonary hypertension, CHF, meth abuse She is intubated but not sedated. Patient is not awake Continue Tamiflu x 5 days total Reviewed all the cultures from the admission until now which are negative except for influenza B Antibiotics history Azithromycin 02/25 until now Ceftriaxone 02/25- 03/03 Linezolid 03/03- now Zosyn: 03/03- now Tamiflu 03/05- now MRSA NAAT is negative, DC Linezolid stopped Azithromycin currently on Zosyn, will stop after 5 days. CXR is likely pulm edema with viral pneumonia; fio2 is 40% WBC count is with in the normal range CXR shows bilateral pleural effusion reviewed Multiple subspecialties are on board such as Cardiology, Nephrology Overall prognosis of this patient is very poor Critical time 50 minutes spent during the encounter plan discussed with treatment team Dietary Evaluation Review Comments: 1) Liberalizing to 2gm Na diet 2) Monitor PO intake, lab values, weight trend, and I/O Expected Outcomes/Goals: To meet >75% estimated needs Fu 3-5 days Plan discussed with: Other ALEJANDRO DOUGHERTY MD Mar 09, 2025 08:47
[2025-03-09 09:41] LABS: Base Excess 6.6 mmol/L (-2.0-3.0)
[2025-03-09] MEDS: FUROSEMIDE 40 MG/4 ML VIAL IV SCH (09:49)
--- NOTE | 2025-03-09 13:30 | DVHPN2 ---
Consult Progress Note Subjective Other Systems: Patient remains chemically sedated and mechanically ventilated. Paroxysmal atrial fibrillation on cardiac event monitor. Possible CPAP trial later today Objective vital signs Vital Sign Date Time Temp Pulse Resp B/P (MAP) Pulse Ox O2 Delivery O2 Flow Rate FiO2 03/09/25 13:00 98.6 118 12 91/66 (74) 94 209.5 03/09/25 12:27 50 03/09/25 12:22 Mechanical Ventilator+ 03/07/25 20:00 0 Total Intake and Output 03/08/25 03/08/25 03/09/25 15:00 23:00 07:00 Intake Total 603.752 ml 363.133 ml 560.304 ml Output Total 300 ml 920 ml Balance 603.752 ml 63.133 ml -359.696 ml medications Current Medications Medications Dose Ordered Sig/Jose Luis Route Start Time Stop Time Status Last Admin Dose Admin Ondansetron HCl 4 mg Q6HP PRN IV 02/25/25 23:00 02/27/25 17:24 4 MG Pantoprazole Sodium 40 mg DAILY IV 02/26/25 10:00 03/09/25 09:47 40 MG Acetaminophen 650 mg Q6HPRN PRN PO 02/25/25 23:00 02/26/25 02:51 650 MG Lorazepam 1 mg Q6HP PRN PO 02/27/25 16:10 03/03/25 05:19 1 MG Guaifenesin 200 mg Q4HP PRN PO 02/28/25 15:00 03/03/25 05:19 200 MG Albuterol 2.5 mg Q4HWA NEB 02/28/25 18:00 03/09/25 10:42 2.5 MG Ipratropium [place] 0.5 mg Q4HWA NEB 02/28/25 18:00 03/09/25 10:43 0.5 MG Albuterol 2.5 mg Q2HPRN PRN NEB 02/28/25 16:00 03/01/25 03:40 2.5 MG Ipratropium [place] 0.5 mg Q2HPRN PRN NEB 02/28/25 16:00 03/01/25 03:40 0.5 MG Aspirin 81 mg DAILY PO 03/02/25 10:00 03/09/25 09:47 81 MG Propofol 100 ml @ 1.854 mls/ hr Q24H IV 03/03/25 16:15 03/08/25 16:04 1.854 MLS/HR Midazolam HCl 50 ml @ 1 mls/hr Q24H IV 03/03/25 16:15 03/06/25 22:34 2 MLS/HR Fentanyl Citrate 250 ml @ 2.5 mls/hr Q24H IV 03/03/25 16:15 03/09/25 05:37 15 MLS/HR Norepinephrine Bitartrate 32 mg/ Sodium Chloride 250 ml @ 0.938 mls/ hr Q24H IV 03/03/25 17:30 03/07/25 14:41 1.875 MLS/HR Vasopressin 20 units/Sodium Chloride 100 ml @ 9 mls/hr Q11H7M IV 03/03/25 17:30 03/05/25 16:34 9 MLS/HR Vancomycin HCl 0 ml @ 0 mls/hr UD IV 03/03/25 18:45 UNV Piperacillin Sod/ Tazobactam Sod 100 ml @ 25 mls/hr Q8HR IV 03/03/25 22:00 03/09/25 06:57 25 MLS/HR Lactulose 30 ml DAILY PO 03/04/25 10:00 03/08/25 09:12 30 ML Enteral Nutritional Formula 1,000 ml 30ML/HR GT 03/04/25 14:15 Metoclopramide HCl 10 mg Q8HR IV 03/05/25 22:00 03/09/25 06:56 10 MG Oseltamivir Phosphate 30 mg Q12HR PO 03/05/25 22:00 03/10/25 21:59 03/09/25 09:47 30 MG Enoxaparin Sodium 60 mg Q12HR SC 03/06/25 22:00 03/08/25 21:51 60 MG Hydrocortisone Sodium Succinate 50 mg Q8HR IV 03/07/25 22:00 03/09/25 06:56 50 MG Furosemide 40 mg DAILY IV 03/09/25 10:00 03/09/25 09:49 40 MG Examination: GENERAL:Abnormal, LUNGS:Abnormal (Mechanically ventilated), CVS:Abnormal (Paroxysmal atrial fibrillation), NEURO:Abnormal (Chemically sedated) laboratory and microbiology Laboratory Tests 03/09/25 03:33 Test 03/09/25 03:33 Range/Units Serum Glucose 123 H 74-106 mg/dL Problem List/Assessment/Plan Problem List/Assessment/Plan Chronic HFrEF, NYHA class III Apical thrombus Paroxysmal atrial fibrillation, Stage 3A (on Amiodarone at home) Severe coronary artery disease with questionable stent placement Ischemic cardiomyopathy Presence of ICD ([employer]) Septic shock Hypertension Dyslipidemia Acute hypoxic respiratory failure secondary to pneumonia Influenza B positive Pulmonary hypertension, severe degree COPD Transaminitis Hyperkalemia Acute kidney injury Thyroid disease Methamphetamine abuse Tobacco use Medical noncompliance Plan/Recommendations (Dr. Gibbs): * Transthoracic echocardiogram reveals EF 15-20% with apical thrombus. * Continue therapeutic Lovenox, transition to DOAC with Eliquis prior to discharge * Continue vasopressors for hemodynamic support (Quad concentration to prevent fluid overload) * Unable to continue guideline directed medical therapy for CHF given vasopressor support * Strict intake and output, daily weights, maintain fluid restriction * [id number] VASc score: 5 points, HAS-BLED score: 2 points * Therapeutic Lovenox while inpatient----closely monitor platelet count, transition to NOAC prior to discharge * Unable to initiate beta-wanda given current vasopressor use * Restart home-dose amiodarone therapy with improved LFTs * Antiplatelet therapy----closely monitor platelet count. * Resume lipid-lowering agent with improved liver enzymes * Close cardiac surveillance * Antibiotics per primary care team Case discussed with . Transthoracic echocardiogram revealed an apical thrombus. Per guideline recommendations, Coumadin therapy is recommended. Given patient medical noncompliance and chronic meth use, doubt patient will be compliant with [facility]madin Clinic. We will recommend off-label use of NOAC therapy Eliquis. [id number] VASc score: 5 points, HAS-BLED score: 2 points. Continue therapeutic Lovenox while inpatient, consider DOAC prior to discharge. Unable to initiate beta-wanda for rate control given current vasopressor therapy. The patient's daughter confirms that the patient takes amiodarone therapy at home. At this time we will hold amiodarone given elevated LFTs. Consider reinitiating amiodarone with improvement in LFTs. Thank you for allowing us to care for this patient. Please call with any questions or concerns. Critical care time spent: 38 minutes. This medical document was created using an electronic medical record system with voice recognition software and computerized dictation system. Although this document has been carefully reviewed, there might still be some phonetic and typographical errors. Occasional wrong-word or ``sound-alike substitutions may have occurred due to the inherent limitations of voice recognition software. These areas are purely typographical due to imperfections of the software programs and do not reflect any compromise in the patient's medical care. Please read the chart carefully and recognize, using context, where these substitutions have occurred. Plan discussed with: Daughter, Other (Bedside RN) Dietary Evaluation Review Comments: 1) Liberalizing to 2gm Na diet 2) Monitor PO intake, lab values, weight trend, and I/O Expected Outcomes/Goals: To meet >75% estimated needs Fu 3-5 days Date of Service: Mar 09, 2025 Billing Provider: ADELSO HALL Common Visit Codes: [id number] CARE 30-74 MIN ADELSO HALL Mar 09, 2025 13:30
--- NOTE | 2025-03-09 13:49 | DVHPN2 ---
Progress Note Date Seen: Mar 09, 2025 Medical Necessity Reason Pt with a Central, PICC or Fol: No Subjective Patient reports: Other (intubated) Review of Systems: Deferred Objective vital signs Vital Sign Date Time Temp Pulse Resp B/P (MAP) Pulse Ox O2 Delivery O2 Flow Rate FiO2 03/09/25 13:00 98.6 118 12 91/66 (74) 94 209.5 03/09/25 12:27 50 03/09/25 12:22 Mechanical Ventilator+ 03/07/25 20:00 0 Total Intake and Output 03/08/25 03/08/25 03/09/25 15:00 23:00 07:00 Intake Total 603.752 ml 363.133 ml 560.304 ml Output Total 300 ml 920 ml Balance 603.752 ml 63.133 ml -359.696 ml medications Current Medications Medications Dose Ordered Sig/Jose Luis Route Start Time Stop Time Status Last Admin Dose Admin Ondansetron HCl 4 mg Q6HP PRN IV 02/25/25 23:00 02/27/25 17:24 4 MG Pantoprazole Sodium 40 mg DAILY IV 02/26/25 10:00 03/09/25 09:47 40 MG Acetaminophen 650 mg Q6HPRN PRN PO 02/25/25 23:00 02/26/25 02:51 650 MG Lorazepam 1 mg Q6HP PRN PO 02/27/25 16:10 03/03/25 05:19 1 MG Guaifenesin 200 mg Q4HP PRN PO 02/28/25 15:00 03/03/25 05:19 200 MG Albuterol 2.5 mg Q4HWA NEB 02/28/25 18:00 03/09/25 10:42 2.5 MG Ipratropium [place] 0.5 mg Q4HWA NEB 02/28/25 18:00 03/09/25 10:43 0.5 MG Albuterol 2.5 mg Q2HPRN PRN NEB 02/28/25 16:00 03/01/25 03:40 2.5 MG Ipratropium [place] 0.5 mg Q2HPRN PRN NEB 02/28/25 16:00 03/01/25 03:40 0.5 MG Aspirin 81 mg DAILY PO 03/02/25 10:00 03/09/25 09:47 81 MG Propofol 100 ml @ 1.854 mls/ hr Q24H IV 03/03/25 16:15 03/08/25 16:04 1.854 MLS/HR Midazolam HCl 50 ml @ 1 mls/hr Q24H IV 03/03/25 16:15 03/06/25 22:34 2 MLS/HR Fentanyl Citrate 250 ml @ 2.5 mls/hr Q24H IV 03/03/25 16:15 03/09/25 05:37 15 MLS/HR Norepinephrine Bitartrate 32 mg/ Sodium Chloride 250 ml @ 0.938 mls/ hr Q24H IV 03/03/25 17:30 03/07/25 14:41 1.875 MLS/HR Vasopressin 20 units/Sodium Chloride 100 ml @ 9 mls/hr Q11H7M IV 03/03/25 17:30 03/05/25 16:34 9 MLS/HR Vancomycin HCl 0 ml @ 0 mls/hr UD IV 03/03/25 18:45 UNV Piperacillin Sod/ Tazobactam Sod 100 ml @ 25 mls/hr Q8HR IV 03/03/25 22:00 03/09/25 13:35 25 MLS/HR Lactulose 30 ml DAILY PO 03/04/25 10:00 03/08/25 09:12 30 ML Enteral Nutritional Formula 1,000 ml 30ML/HR GT 03/04/25 14:15 Metoclopramide HCl 10 mg Q8HR IV 03/05/25 22:00 03/09/25 13:33 10 MG Oseltamivir Phosphate 30 mg Q12HR PO 03/05/25 22:00 03/10/25 21:59 03/09/25 09:47 30 MG Enoxaparin Sodium 60 mg Q12HR SC 03/06/25 22:00 03/08/25 21:51 60 MG Hydrocortisone Sodium Succinate 50 mg Q8HR IV 03/07/25 22:00 03/09/25 13:33 50 MG Furosemide 40 mg DAILY IV 03/09/25 10:00 03/09/25 09:49 40 MG Examination: GENERAL:Abnormal, MSK:Abnormal, NEURO:Abnormal laboratory and microbiology Laboratory Tests 03/09/25 03:33 Test 03/09/25 03:33 Range/Units Serum Glucose 123 H 74-106 mg/dL Microbiology Date/Time Source Procedure Growth Status 03/05/25 15:00 Nose MRSA Screen - Final Complete 03/03/25 22:09 Urine - [place] Urine Culture - Final Complete 03/03/25 19:15 Blood Blood Culture - Final NO GROWTH AFTER 5 DAYS OF INCUBATION. Complete Problem List/Assessment/Plan Problem List/Assessment/Plan Acute kidney injury secondary hemodynamic mediated Acute respiratory failure, patient intubated on ventilator Septic shock Hypokalemia due to potassium depletion Hypochloremic Metabolic alkalosis due to excessive diuresis Hypoalbuminemia Hyperglycemia Methamphetamine abuse Chronic systolic Congestive heart failure, ejection fraction 15-20% AICD Influenza B positive Hiatal hernia recs dc ivf lasix iv daily Plan discussed with: Other My Orders My Orders Orders - LORENA CUMMINGS MD Procedure Category Date Status Time Furosemide Injection PHA 03/09/25 In Process (Lasix Injection) 10:00 Dietary Evaluation Review Comments: 1) Liberalizing to 2gm Na diet 2) Monitor PO intake, lab values, weight trend, and I/O Expected Outcomes/Goals: To meet >75% estimated needs Fu 3-5 days LORENA CUMMINGS MD Mar 09, 2025 13:49
--- NOTE | 2025-03-09 14:06 | DVHPN2 ---
Progress Note - Dictate Date Seen: Mar 09, 2025 Medical Necessity Reason Pt with a Central, PICC or Fol: No vital signs Vital Sign Date Time Temp Pulse Resp B/P (MAP) Pulse Ox O2 Delivery O2 Flow Rate FiO2 03/09/25 13:58 50 03/09/25 13:58 118 03/09/25 13:58 11 96 Mechanical Ventilator+ 03/09/25 13:00 98.6 91/66 (74) 209.5 03/07/25 20:00 0 Total Intake and Output 03/08/25 03/08/25 03/09/25 15:00 23:00 07:00 Intake Total 603.752 ml 363.133 ml 560.304 ml Output Total 300 ml 920 ml Balance 603.752 ml 63.133 ml -359.696 ml medications Current Medications Medications Dose Ordered Sig/Jose Luis Route Start Time Stop Time Status Last Admin Dose Admin Ondansetron HCl 4 mg Q6HP PRN IV 02/25/25 23:00 02/27/25 17:24 4 MG Pantoprazole Sodium 40 mg DAILY IV 02/26/25 10:00 03/09/25 09:47 40 MG Acetaminophen 650 mg Q6HPRN PRN PO 02/25/25 23:00 02/26/25 02:51 650 MG Lorazepam 1 mg Q6HP PRN PO 02/27/25 16:10 03/03/25 05:19 1 MG Guaifenesin 200 mg Q4HP PRN PO 02/28/25 15:00 03/03/25 05:19 200 MG Albuterol 2.5 mg Q4HWA NEB 02/28/25 18:00 03/09/25 10:42 2.5 MG Ipratropium [place] 0.5 mg Q4HWA NEB 02/28/25 18:00 03/09/25 10:43 0.5 MG Albuterol 2.5 mg Q2HPRN PRN NEB 02/28/25 16:00 03/01/25 03:40 2.5 MG Ipratropium [place] 0.5 mg Q2HPRN PRN NEB 02/28/25 16:00 03/01/25 03:40 0.5 MG Aspirin 81 mg DAILY PO 03/02/25 10:00 03/09/25 09:47 81 MG Propofol 100 ml @ 1.854 mls/ hr Q24H IV 03/03/25 16:15 03/08/25 16:04 1.854 MLS/HR Midazolam HCl 50 ml @ 1 mls/hr Q24H IV 03/03/25 16:15 03/06/25 22:34 2 MLS/HR Fentanyl Citrate 250 ml @ 2.5 mls/hr Q24H IV 03/03/25 16:15 03/09/25 05:37 15 MLS/HR Norepinephrine Bitartrate 32 mg/ Sodium Chloride 250 ml @ 0.938 mls/ hr Q24H IV 03/03/25 17:30 03/07/25 14:41 1.875 MLS/HR Vasopressin 20 units/Sodium Chloride 100 ml @ 9 mls/hr Q11H7M IV 03/03/25 17:30 03/05/25 16:34 9 MLS/HR Vancomycin HCl 0 ml @ 0 mls/hr UD IV 03/03/25 18:45 UNV Piperacillin Sod/ Tazobactam Sod 100 ml @ 25 mls/hr Q8HR IV 03/03/25 22:00 03/09/25 13:35 25 MLS/HR Lactulose 30 ml DAILY PO 03/04/25 10:00 03/08/25 09:12 30 ML Enteral Nutritional Formula 1,000 ml 30ML/HR GT 03/04/25 14:15 Metoclopramide HCl 10 mg Q8HR IV 03/05/25 22:00 03/09/25 13:33 10 MG Oseltamivir Phosphate 30 mg Q12HR PO 03/05/25 22:00 03/10/25 21:59 03/09/25 09:47 30 MG Enoxaparin Sodium 60 mg Q12HR SC 03/06/25 22:00 03/08/25 21:51 60 MG Hydrocortisone Sodium Succinate 50 mg Q8HR IV 03/07/25 22:00 03/09/25 13:33 50 MG Furosemide 40 mg DAILY IV 03/09/25 10:00 03/09/25 09:49 40 MG laboratory and microbiology Laboratory Tests 03/09/25 03:33 Test 03/09/25 03:33 Range/Units Serum Glucose 123 H 74-106 mg/dL Assessment/Plan Patient is seen and examined in the ICU Diagnosis Influenza B Pneumonia Acute hypoxemic respiratory failure Renal failure Metabolic acidosis Patient seen and examined in ICU Events Remains on the ventilator S/p intubation PEEP 5, FiO2 30% pt delirious requires precedex Labs and imaging reviewed Positive for Hepatitis B Chest x-ray reviewed ABG reviewed Management plan Continue vent support Sedation holiday daily If patient follows commands, proceed to weaning trial Pressure support 11/26, extubate when ready Daily ABGs and x-rays Continue bicarb drip and antibiotics Prognosis poor Family updated crit care time 35 minutes Dietary Evaluation Review Comments: 1) Liberalizing to 2gm Na diet 2) Monitor PO intake, lab values, weight trend, and I/O Expected Outcomes/Goals: To meet >75% estimated needs Fu 3-5 days Plan discussed with: Other (Rn) EVANS UGARTE MD Mar 09, 2025 14:06
--- NOTE | 2025-03-09 15:56 | DVHPN2 ---
Subjective Patient is back on low-dose of Levophed, thrombocytopenia suspected secondary to Zosyn which will be discontinued cefepime has been started. Patient's has a oral bleeding. Reviewed: Care Plan Changes from previous H/P or p: No Changes Objective Vitals Vital Signs Date Time Temp Pulse Resp B/P (MAP) Pulse Ox O2 Delivery O2 Flow Rate FiO2 03/09/25 14:45 99.7 117 12 93/67 (76) 96 211.5 03/09/25 13:58 50 03/09/25 13:58 Mechanical Ventilator+ 03/07/25 20:00 0 Intake/Output Intake and Output 03/09/25 07:00 Intake Total 1527.189 ml Output Total 1220 ml Balance 307.189 ml Intake Oral 0 ml IV Total 1227.189 ml Tube Feeding 300 ml Output Urine Total 1220 ml Stool Total 0 ml # Bowel Movements 1 Exam HEENT pupils are reactive Neck is supple CV is S1-S2 regular rate and rhythm Respiratory diminished breath sounds bases , bilateral basal crackles GI positive bowel sound Extremity no edema BLADE SHARPENER, toes, currently off of sedation Medications Current Medications Medications Dose Ordered Sig/Jose Luis Route Start Time Stop Time Status Last Admin Dose Admin Ondansetron HCl 4 mg Q6HP PRN IV 02/25/25 23:00 02/27/25 17:24 4 MG Pantoprazole Sodium 40 mg DAILY IV 02/26/25 10:00 03/09/25 09:47 40 MG Acetaminophen 650 mg Q6HPRN PRN PO 02/25/25 23:00 02/26/25 02:51 650 MG Lorazepam 1 mg Q6HP PRN PO 02/27/25 16:10 03/03/25 05:19 1 MG Guaifenesin 200 mg Q4HP PRN PO 02/28/25 15:00 03/03/25 05:19 200 MG Albuterol 2.5 mg Q4HWA NEB 02/28/25 18:00 03/09/25 14:34 2.5 MG Ipratropium [place] 0.5 mg Q4HWA NEB 02/28/25 18:00 03/09/25 14:34 0.5 MG Albuterol 2.5 mg Q2HPRN PRN NEB 02/28/25 16:00 03/01/25 03:40 2.5 MG Ipratropium [place] 0.5 mg Q2HPRN PRN NEB 02/28/25 16:00 03/01/25 03:40 0.5 MG Aspirin 81 mg DAILY PO 03/02/25 10:00 03/09/25 09:47 81 MG Propofol 100 ml @ 1.854 mls/ hr Q24H IV 03/03/25 16:15 03/08/25 16:04 1.854 MLS/HR Midazolam HCl 50 ml @ 1 mls/hr Q24H IV 03/03/25 16:15 03/06/25 22:34 2 MLS/HR Fentanyl Citrate 250 ml @ 2.5 mls/hr Q24H IV 03/03/25 16:15 03/09/25 05:37 15 MLS/HR Norepinephrine Bitartrate 32 mg/ Sodium Chloride 250 ml @ 0.938 mls/ hr Q24H IV 03/03/25 17:30 03/07/25 14:41 1.875 MLS/HR Vasopressin 20 units/Sodium Chloride 100 ml @ 9 mls/hr Q11H7M IV 03/03/25 17:30 03/05/25 16:34 9 MLS/HR Vancomycin HCl 0 ml @ 0 mls/hr UD IV 03/03/25 18:45 UNV Lactulose 30 ml DAILY PO 03/04/25 10:00 03/08/25 09:12 30 ML Enteral Nutritional Formula 1,000 ml 30ML/HR GT 03/04/25 14:15 Metoclopramide HCl 10 mg Q8HR IV 03/05/25 22:00 03/09/25 13:33 10 MG Oseltamivir Phosphate 30 mg Q12HR PO 03/05/25 22:00 03/10/25 21:59 03/09/25 09:47 30 MG Enoxaparin Sodium 60 mg Q12HR SC 03/06/25 22:00 03/08/25 21:51 60 MG Hydrocortisone Sodium Succinate 50 mg Q8HR IV 03/07/25 22:00 03/09/25 13:33 50 MG Furosemide 40 mg DAILY IV 03/09/25 10:00 03/09/25 09:49 40 MG Cefepime HCl 50 ml @ 12.5 mls/hr Q8HR IV 03/09/25 22:00 UNV Laboratory Results Laboratory Tests 03/09/25 03:33 Chemistry Test 03/09/25 03:33 Calcium Level 8.5 mg/dL (8.7-10.4) L Magnesium Level 2.2 mg/dL (1.6-2.6) Cardiac Markers Test 03/09/25 03:33 B-Type Natriuretic Peptide 850.42 pg/mL (0-100) Urinalysis Test 03/05/25 10:40 Urine Color Light-yellow (Yellow) Urine Clarity Clear (Clear) Urine pH 7.0 (5.0-9.0) Urine Specific [place] 1.009 (1.001-1.035) Urine Protein Negative (Negative) Urine Ketones Negative (Negative) Urine Blood Negative /uL (Negative) Urine Nitrite Negative (Negative) Urine Bilirubin Negative (Negative) Urine Urobilinogen Normal mg/dL (Negative) Urine Leukocyte Esterase Negative /uL (Negative) Urine RBC 1 /hpf (0 - 4) Urine Microscopic WBC 1 /HPF (0-5) Urine Squamous Epithelial Cells None seen /hpf (<5) Urine Bacteria None seen /hpf (None Seen) Urine Yeast (Budding) Few /hpf (None Seen) Urine Creatinine 11.91 mg/dL (30.0-125.0) L Urine Protein/Creatinine Ratio 1.23 Urine Sodium 77 mmol/L (40-220) Urine Glucose 4+ mg/dL (Normal) H Urine Total Protein 14.7 mg/dL (1-14) H Blood Gas Results Test 03/09/25 08:55 Arterial Blood pH 7.471 (7.350-7.450) FiO2 % 50.0 Microbiology Microbiology Date/Time Source Procedure Growth Status 03/05/25 15:00 Nose MRSA Screen - Final Complete 03/03/25 22:09 Urine - [place] Urine Culture - Final Complete 03/03/25 19:15 Blood Blood Culture - Final NO GROWTH AFTER 5 DAYS OF INCUBATION. Complete Assessment/Plan Assessment/Plan 64-year-old female with a known history of pulmonary hypertension, ischemic cardiomyopathy, CAD status post PCI, COPD, chronic meth use presented to the hospital with the abdominal pain patient was found to have 1. Acute hypoxic respiratory failure requiring intubation and mechanical ventilation, currently on FiO2 50% with a PEEP of% 2. Abdominal pain, acute cholecystitis has been ruled out 3. Suspected pneumonia, on IV antibiotic 4. Acute on chronic congestive heart failure exacerbation with systolic dysfunction 5. Relative hypotension, currently on vasopressor 5. Chronic meth use 6. Acute kidney injury likely hemodynamically mediated, currently off of diuretics 7. Chronic tobacco use disorder/marijuana use 8. Thrombocytopenia suspect Zosyn induced, DC Zosyn, start cefepime 9. ET tube bleeding, continue oral care - patient is currently on intubated but off sedation, on IV antibiotics follow up cultures, discontinue Lasix, monitor urine output, continue IV vasopressor -patient's remains critical prognosis remains guarded. -daughter updated at bedside. No CPAP trial today because of increased FiO2 of 50%. Plan discussed with: Daughter, Other My Orders Orders - PING SANDERSON MD Procedure Category Date Status Time Communication Order ORDERS 03/08/25 Transmitted 16:47 Cefepime 1gm/50ml PHA 03/09/25 Logged (Maxipime 1gm/50ml) 22:00 Complete Blood Count LAB 03/10/25 Verified 04:00 Comprehensive LAB 03/10/25 Verified Metabolic Panel 04:00 Magnesium LAB 03/10/25 Verified 04:00 Date of Service: Mar 09, 2025 Billing Provider: PING SANDERSON MD Common Visit Codes: NOT BILLABLE PING SANDERSON MD Mar 09, 2025 15:56
[2025-03-09] MEDS: CEFEPIME 1GM/50ML 50 ML IV SCH (22:18)
[2025-03-10] VITALS (106 sets, daily range): BP systolic 78–135; BP diastolic 42–101; PULSE 87–127; RESP 10–25; TEMP 73.6–100.9; O2SAT 84–100
[2025-03-10 03:56] LABS: Hematocrit 34.7 % (36.0-46.0); Hemoglobin 11.0 g/dL (12.2-16.2); Mean Corpuscular Hemoglobin 26.5 pg (28.0-32.0); Mean Corpuscular Volume 83.7 fL (80.0-100.0); Nucleated Red Blood Cells % 0.1 %
[2025-03-10 04:11] LABS: Alanine Aminotransferase 123 U/L (7-40); Albumin 3.2 g/dL (3.2-4.8); Alkaline Phosphatase 61 U/L (46-116); Anion Gap 8 (5-15); BUN/Creatinine Ratio 31.1 (10.0-20.0); Bilirubin, Total 0.9 mg/dL (0.2-1.0); Blood Urea Nitrogen 32 mg/dL (9-23); Calcium 8.7 mg/dL (8.7-10.4); Carbon Dioxide 36 mmol/L (20-31); Chloride 103 mmol/L (98-107); Glucose 176 mg/dL (74-106); Magnesium 2.2 mg/dL (1.6-2.6); Potassium 3.7 mmol/L (3.5-5.1); Sodium 147 mmol/L (136-145); Total Protein 5.6 g/dL (5.7-8.2)
--- NOTE | 2025-03-10 06:03 | DVH ---
CHEST RADIOGRAPH Indication: Intubated Technique: Single frontal view of the chest was obtained COMPARISON: XY CHEST PORTABLE on DOS: 03/08/25, XY CHEST PORTABLE on DOS: 03/07/25, XY CHEST PORTABLE on DOS: 03/06/25, XY CHEST XRAY 1 VIEW on DOS: 03/05/25, XY CHEST PORTABLE on DOS: 03/04/25 FINDINGS: Lines and Tubes: Endotracheal tube, enteric catheter, right central venous catheter in satisfactory p osition. Left chest wall pacemaker / AICD. Lungs: Unchanged cardiomegaly and unchanged diffuse pulmonary vascular congestion. Pleura: No effusion. No pneumothorax. Cardiomediastinal contours: Unremarkable. Bones: Unremarkable. IMPRESSION: Lines and tubes in satisfactory position. No significant interval change.
[2025-03-10 08:56] LABS: Base Excess 6.3 mmol/L (-2.0-3.0)
--- NOTE | 2025-03-10 11:21 | DVHPN2 ---
Progress Note - Dictate Date Seen: Mar 10, 2025 Medical Necessity Reason Pt with a Central, PICC or Fol: No Subjective Patient is on intubation but not sedated On mechanical ventilation for acute on chronic hypoxic Respiratory Failure patient is febrile 100.2 vital signs Vital Sign Date Time Temp Pulse Resp B/P (MAP) Pulse Ox O2 Delivery O2 Flow Rate FiO2 03/10/25 10:29 111/78 03/10/25 10:04 98 17 99 40 03/10/25 09:30 98.1 208.6 03/10/25 08:00 Mechanical Ventilator+ Total Intake and Output 03/09/25 03/09/25 03/10/25 15:00 23:00 07:00 Intake Total 346.358 ml 716.638 ml 633.405 ml Output Total 400 ml 310 ml Balance 346.358 ml 316.638 ml 323.405 ml medications Current Medications Medications Dose Ordered Sig/Jose Luis Route Start Time Stop Time Status Last Admin Dose Admin Ondansetron HCl 4 mg Q6HP PRN IV 02/25/25 23:00 02/27/25 17:24 4 MG Pantoprazole Sodium 40 mg DAILY IV 02/26/25 10:00 03/10/25 10:29 40 MG Acetaminophen 650 mg Q6HPRN PRN PO 02/25/25 23:00 02/26/25 02:51 650 MG Lorazepam 1 mg Q6HP PRN PO 02/27/25 16:10 03/03/25 05:19 1 MG Guaifenesin 200 mg Q4HP PRN PO 02/28/25 15:00 03/03/25 05:19 200 MG Albuterol 2.5 mg Q4HWA NEB 02/28/25 18:00 03/10/25 10:04 2.5 MG Ipratropium [place] 0.5 mg Q4HWA NEB 02/28/25 18:00 03/10/25 10:04 0.5 MG Albuterol 2.5 mg Q2HPRN PRN NEB 02/28/25 16:00 03/01/25 03:40 2.5 MG Ipratropium [place] 0.5 mg Q2HPRN PRN NEB 02/28/25 16:00 03/01/25 03:40 0.5 MG Aspirin 81 mg DAILY PO 03/02/25 10:00 03/10/25 10:36 81 MG Propofol 100 ml @ 1.854 mls/ hr Q24H IV 03/03/25 16:15 03/10/25 05:14 1.854 MLS/HR Midazolam HCl 50 ml @ 1 mls/hr Q24H IV 03/03/25 16:15 03/06/25 22:34 2 MLS/HR Fentanyl Citrate 250 ml @ 2.5 mls/hr Q24H IV 03/03/25 16:15 03/10/25 05:11 27.5 MLS/HR Norepinephrine Bitartrate 32 mg/ Sodium Chloride 250 ml @ 0.938 mls/ hr Q24H IV 03/03/25 17:30 03/09/25 17:26 0.938 MLS/HR Vasopressin 20 units/Sodium Chloride 100 ml @ 9 mls/hr Q11H7M IV 03/03/25 17:30 03/05/25 16:34 9 MLS/HR Vancomycin HCl 0 ml @ 0 mls/hr UD IV 03/03/25 18:45 UNV Lactulose 30 ml DAILY PO 03/04/25 10:00 03/08/25 09:12 30 ML Enteral Nutritional Formula 1,000 ml 30ML/HR GT 03/04/25 14:15 Metoclopramide HCl 10 mg Q8HR IV 03/05/25 22:00 03/10/25 06:44 10 MG Oseltamivir Phosphate 30 mg Q12HR PO 03/05/25 22:00 03/10/25 21:59 03/10/25 10:29 30 MG Enoxaparin Sodium 60 mg Q12HR SC 03/06/25 22:00 03/08/25 21:51 60 MG Hydrocortisone Sodium Succinate 50 mg Q8HR IV 03/07/25 22:00 03/10/25 06:44 50 MG Furosemide 40 mg DAILY IV 03/09/25 10:00 03/10/25 10:29 40 MG Cefepime HCl 50 ml @ 12.5 mls/hr Q12HR IV 03/09/25 22:00 03/10/25 10:29 12.5 MLS/HR objective General intubated and sedated HEENT: Atraumatic,intubated Neck: No swelling Lungs: Equal air entry and clear to auscultation Cardiovascular: S1 S2 heard no murmur Abdomen: Soft nontender, no organomegaly, nondistended Neuro: Currently off sedation laboratory and microbiology Laboratory Tests 03/10/25 03:40 Test 03/10/25 03:40 Range/Units Serum Glucose 176 H 74-106 mg/dL Assessment/Plan A 64-year-old female Shock due to cardiogenic versus septic Influenza B pneumonia Acute hypoxic respiratory failure - on Mechanical ventilation thrombocytopenia Hepatitis-C antibody positive Congestive heart failure Apical thrombus Severe pulmonary hypertension Methamphetamine abuse Acute kidney injury Noncompliance Tobacco use COPD Recommendations low grade fever, will monitor. She is on Cefepime ( switched from Zosyn due to Thrombocytopenia). Hemodynamically no acute worsening monitor platelets Patient has been on prolonged course of antibiotics since admission without clear indication of bacterial infection. IF fever resolves, then we will stop antibiotics and monitor. Her Hypotension is more related to cardiac she is off Dopamine and VAsopressin. continues to be on nor epi.. she has multiorgan failure due to underlying history of pulmonary hypertension, CHF, meth abuse She is intubated ; undergoing CPAP trial completed Tamiflu x 5 days total Reviewed all the cultures from the admission until now which are negative except for influenza B Antibiotics history Azithromycin 02/25 until now Ceftriaxone 02/25- 03/03 Linezolid 03/03- now Zosyn: 03/03- 03/10 Cefepime 03/10 Tamiflu 03/05- now Multiple subspecialties are on board such as Cardiology, Nephrology Overall prognosis of this patient is very poor Critical time 50 minutes spent during the encounter plan discussed with treatment team Dietary Evaluation Review Comments: 1) Liberalizing to 2gm Na diet 2) Monitor PO intake, lab values, weight trend, and I/O Expected Outcomes/Goals: To meet >75% estimated needs Fu 3-5 days Plan discussed with: Other ALEJANDRO DOUGHERTY MD Mar 10, 2025 11:21
--- NOTE | 2025-03-10 12:14 | DVHPN2 ---
Progress Note - Dictate Date Seen: Mar 10, 2025 Medical Necessity Reason Pt with a Central, PICC or Fol: No vital signs Vital Sign Date Time Temp Pulse Resp B/P (MAP) Pulse Ox O2 Delivery O2 Flow Rate FiO2 03/10/25 10:29 111/78 03/10/25 10:04 98 17 99 40 03/10/25 09:30 98.1 208.6 03/10/25 08:00 Mechanical Ventilator+ Total Intake and Output 03/09/25 03/09/25 03/10/25 15:00 23:00 07:00 Intake Total 346.358 ml 716.638 ml 633.405 ml Output Total 400 ml 310 ml Balance 346.358 ml 316.638 ml 323.405 ml medications Current Medications Medications Dose Ordered Sig/Jose Luis Route Start Time Stop Time Status Last Admin Dose Admin Ondansetron HCl 4 mg Q6HP PRN IV 02/25/25 23:00 02/27/25 17:24 4 MG Pantoprazole Sodium 40 mg DAILY IV 02/26/25 10:00 03/10/25 10:29 40 MG Acetaminophen 650 mg Q6HPRN PRN PO 02/25/25 23:00 02/26/25 02:51 650 MG Lorazepam 1 mg Q6HP PRN PO 02/27/25 16:10 03/03/25 05:19 1 MG Guaifenesin 200 mg Q4HP PRN PO 02/28/25 15:00 03/03/25 05:19 200 MG Albuterol 2.5 mg Q4HWA NEB 02/28/25 18:00 03/10/25 10:04 2.5 MG Ipratropium [place] 0.5 mg Q4HWA NEB 02/28/25 18:00 03/10/25 10:04 0.5 MG Albuterol 2.5 mg Q2HPRN PRN NEB 02/28/25 16:00 03/01/25 03:40 2.5 MG Ipratropium [place] 0.5 mg Q2HPRN PRN NEB 02/28/25 16:00 03/01/25 03:40 0.5 MG Aspirin 81 mg DAILY PO 03/02/25 10:00 03/10/25 10:36 81 MG Propofol 100 ml @ 1.854 mls/ hr Q24H IV 03/03/25 16:15 03/10/25 05:14 1.854 MLS/HR Midazolam HCl 50 ml @ 1 mls/hr Q24H IV 03/03/25 16:15 03/06/25 22:34 2 MLS/HR Fentanyl Citrate 250 ml @ 2.5 mls/hr Q24H IV 03/03/25 16:15 03/10/25 05:11 27.5 MLS/HR Norepinephrine Bitartrate 32 mg/ Sodium Chloride 250 ml @ 0.938 mls/ hr Q24H IV 03/03/25 17:30 03/09/25 17:26 0.938 MLS/HR Vasopressin 20 units/Sodium Chloride 100 ml @ 9 mls/hr Q11H7M IV 03/03/25 17:30 03/05/25 16:34 9 MLS/HR Vancomycin HCl 0 ml @ 0 mls/hr UD IV 03/03/25 18:45 UNV Lactulose 30 ml DAILY PO 03/04/25 10:00 03/08/25 09:12 30 ML Enteral Nutritional Formula 1,000 ml 30ML/HR GT 03/04/25 14:15 Metoclopramide HCl 10 mg Q8HR IV 03/05/25 22:00 03/10/25 06:44 10 MG Oseltamivir Phosphate 30 mg Q12HR PO 03/05/25 22:00 03/10/25 21:59 03/10/25 10:29 30 MG Enoxaparin Sodium 60 mg Q12HR SC 03/06/25 22:00 03/08/25 21:51 60 MG Hydrocortisone Sodium Succinate 50 mg Q8HR IV 03/07/25 22:00 03/10/25 06:44 50 MG Furosemide 40 mg DAILY IV 03/09/25 10:00 03/10/25 10:29 40 MG Cefepime HCl 50 ml @ 12.5 mls/hr Q12HR IV 03/09/25 22:00 03/10/25 10:29 12.5 MLS/HR laboratory and microbiology Laboratory Tests 03/10/25 03:40 Test 03/10/25 03:40 Range/Units Serum Glucose 176 H 74-106 mg/dL Assessment/Plan Patient is seen and examined in the ICU Diagnosis Influenza B Pneumonia Acute hypoxemic respiratory failure Renal failure Metabolic acidosis Patient seen and examined in ICU Events Remains on the ventilator S/p intubation PEEP 5, FiO2 30% pt delirious requires precedex seroquel added Labs and imaging reviewed Positive for Hepatitis B Chest x-ray reviewed ABG reviewed Management plan Continue vent support Sedation holiday daily If patient follows commands, proceed to weaning trial Pressure support 11/26, extubate when ready Daily ABGs and x-rays Continue bicarb drip and antibiotics Prognosis poor Family updated crit care time 35 minutes Dietary Evaluation Review Comments: 1) Liberalizing to 2gm Na diet 2) Monitor PO intake, lab values, weight trend, and I/O Expected Outcomes/Goals: To meet >75% estimated needs Fu 3-5 days Plan discussed with: Other (rn) VEANS UGARTE MD Mar 10, 2025 12:14
--- NOTE | 2025-03-10 12:26 | DVH ---
Indication: mottled/cold BLE Technique: Real- time ultrasound images of the bilateral lower extremity with grayscale, color, and spectral wave Doppler. Comparison: VAS ARTERIAL LOWER EXTREM BILAT on DOS: 05/24/24 Findings: Bilateral atherosclerotic calcification disease. Biphasic/ triphasic waveforms in the right COOKER SULFATE, SFA, popliteal, posterior tibial, anterior tibial, dorsalis pedis arteries. Monophasic waveform left [place] S[place]FATE , SFA, popliteal, dorsalis pedis, anterior tibial arteries. Peak systolic velocities are as follows (in cm/s): Right: Common femoral artery: 72 Profunda femoris: 65 Proximal superficial femoral: 80 Mid superficial femoral artery: 56 Distal superficial femoral artery: 39 Popliteal artery: 37 Posterior tibial artery: 19 Anterior tibial artery: 15 Dorsalis pedis artery: 22 Left: Common femoral artery: 65 Profunda femoris: 63 Proximal superficial femoral: 37 Mid superficial femoral artery: 119 Distal superficial femoral artery: 31 Popliteal artery: 32 Posterior tibial artery: Nonvisualized Anterior tibial artery: 31 Dorsalis pedis artery: 27 Impression: Findings suggestive of moderate to advanced peripheral arterial disease more pronounced within the left lower extremity where there are more monophasic waveforms. Focal elevation of velocity in the left mid SFA consistent with hemodynamically significant stenosis. Recommend CT angiogram lower extremities to further evaluate
--- NOTE | 2025-03-10 14:21 | DVHPN2 ---
Consult Progress Note Date Seen: Mar 10, 2025 Subjective Other Systems: Notified of paroxysmal a-flutter events. On CPAP trial Objective vital signs Vital Sign Date Time Temp Pulse Resp B/P (MAP) Pulse Ox O2 Delivery O2 Flow Rate FiO2 03/10/25 13:56 98 25 97/70 (79) 94 40 03/10/25 09:30 98.1 208.6 03/10/25 08:00 Mechanical Ventilator+ Total Intake and Output 03/09/25 03/09/25 03/10/25 15:00 23:00 07:00 Intake Total 346.358 ml 716.638 ml 633.405 ml Output Total 400 ml 310 ml Balance 346.358 ml 316.638 ml 323.405 ml medications Current Medications Medications Dose Ordered Sig/Jose Luis Route Start Time Stop Time Status Last Admin Dose Admin Ondansetron HCl 4 mg Q6HP PRN IV 02/25/25 23:00 02/27/25 17:24 4 MG Pantoprazole Sodium 40 mg DAILY IV 02/26/25 10:00 03/10/25 10:29 40 MG Acetaminophen 650 mg Q6HPRN PRN PO 02/25/25 23:00 02/26/25 02:51 650 MG Lorazepam 1 mg Q6HP PRN PO 02/27/25 16:10 03/03/25 05:19 1 MG Guaifenesin 200 mg Q4HP PRN PO 02/28/25 15:00 03/03/25 05:19 200 MG Albuterol 2.5 mg Q4HWA NEB 02/28/25 18:00 03/10/25 13:56 2.5 MG Ipratropium [place] 0.5 mg Q4HWA NEB 02/28/25 18:00 03/10/25 13:55 0.5 MG Albuterol 2.5 mg Q2HPRN PRN NEB 02/28/25 16:00 03/01/25 03:40 2.5 MG Ipratropium [place] 0.5 mg Q2HPRN PRN NEB 02/28/25 16:00 03/01/25 03:40 0.5 MG Aspirin 81 mg DAILY PO 03/02/25 10:00 03/10/25 10:36 81 MG Propofol 100 ml @ 1.854 mls/ hr Q24H IV 03/03/25 16:15 03/10/25 05:14 1.854 MLS/HR Midazolam HCl 50 ml @ 1 mls/hr Q24H IV 03/03/25 16:15 03/06/25 22:34 2 MLS/HR Fentanyl Citrate 250 ml @ 2.5 mls/hr Q24H IV 03/03/25 16:15 03/10/25 05:11 27.5 MLS/HR Norepinephrine Bitartrate 32 mg/ Sodium Chloride 250 ml @ 0.938 mls/ hr Q24H IV 03/03/25 17:30 03/09/25 17:26 0.938 MLS/HR Vasopressin 20 units/Sodium Chloride 100 ml @ 9 mls/hr Q11H7M IV 03/03/25 17:30 03/05/25 16:34 9 MLS/HR Vancomycin HCl 0 ml @ 0 mls/hr UD IV 03/03/25 18:45 UNV Lactulose 30 ml DAILY PO 03/04/25 10:00 03/08/25 09:12 30 ML Enteral Nutritional Formula 1,000 ml 30ML/HR GT 03/04/25 14:15 Metoclopramide HCl 10 mg Q8HR IV 03/05/25 22:00 03/10/25 06:44 10 MG Oseltamivir Phosphate 30 mg Q12HR PO 03/05/25 22:00 03/10/25 21:59 03/10/25 10:29 30 MG Enoxaparin Sodium 60 mg Q12HR SC 03/06/25 22:00 03/08/25 21:51 60 MG Hydrocortisone Sodium Succinate 50 mg Q8HR IV 03/07/25 22:00 03/10/25 06:44 50 MG Furosemide 40 mg DAILY IV 03/09/25 10:00 03/10/25 10:29 40 MG Cefepime HCl 50 ml @ 12.5 mls/hr Q12HR IV 03/09/25 22:00 03/10/25 10:29 12.5 MLS/HR Quetiapine Fumarate 25 mg BID PO 03/10/25 22:00 Amiodarone HCl 100 mg Q12HR PO 03/10/25 22:00 Examination: GENERAL:Abnormal, LUNGS:Abnormal (Endotracheally intubated. On CPAP trial), CVS:Abnormal (Intermittent A-flutter events), NEURO:Abnormal laboratory and microbiology Laboratory Tests 03/10/25 03:40 Test 03/10/25 03:40 Range/Units Serum Glucose 176 H 74-106 mg/dL Problem List/Assessment/Plan Problem List/Assessment/Plan Septic shock with PNA/Influenza B Acute hypoxic respiratory failure secondary to above Acute on chronic decompensated HFrEF, NYHA class III Paroxysmal atrial fibrillation/atrial flutter, Stage 3A (on Amiodarone at home) Severe coronary artery disease with questionable stent placement Peripheral arterial disease, moderate to severe Ischemic cardiomyopathy Presence of ICD ([employer]) Left ventricular apical thrombus Pulmonary hypertension, severe degree Acute kidney injury with hyperkalemia Elevated LFTs Thyroid disease Dyslipidemia Thrombocytopenia Methamphetamine/tobacco abuse Medical noncompliance Plan/Recommendations (Dr. Gibbs) * Transthoracic echocardiogram reveals EF 15-20% with apical thrombus * Recommendations are for DOAC vs warfarin therapy given poor medical compliance * Continue vasopressors for hemodynamic support (Quad concentration to prevent fluid overload) * Initiate guideline directed medical therapy with optimal hemodynamics * Strict intake and output, daily weights, maintain fluid restriction * Therapeutic Lovenox (closely monitor platelet count). Transition to NOAC when appropriate * [id number] VASc score: 5 points, HAS-BLED score: 2 points * Antiarrhythmic therapy, start low-dose amiodarone (monitor LFTs) * Replete electrolytes as necessary, K>4 and Mg>2 * Single-antiplatelet therapy given hx of possible coronary stent * Resume lipid-lowering agent * Close cardiac surveillance Thank you for allowing us to care for this patient. Please call with any questions or concerns. Critical care time spent: 35 minutes. This medical document was created using an electronic medical record system with voice recognition software and computerized dictation system. Although this document has been carefully reviewed, there might still be some phonetic and typographical errors. Occasional wrong-word or ``sound-alike substitutions may have occurred due to the inherent limitations of voice recognition software. These areas are purely typographical due to imperfections of the software programs and do not reflect any compromise in the patient's medical care. Please read the chart carefully and recognize, using context, where these substitutions have occurred. Plan discussed with: Other Dietary Evaluation Review Comments: 1) Liberalizing to 2gm Na diet 2) Monitor PO intake, lab values, weight trend, and I/O Expected Outcomes/Goals: To meet >75% estimated needs Fu 3-5 days Date of Service: Mar 10, 2025 Billing Provider: LUISITO COATS Cardiology Common Codes: 89144-[id number] CARE 30-74 MIN LUSIITO COATS Mar 10, 2025 14:21
--- NOTE | 2025-03-10 14:28 | DVHPN2 ---
Progress Note - Dictate Date Seen: Mar 10, 2025 Medical Necessity Reason Pt with a Central, PICC or Fol: No Subjective Sedated comfortable on ventilator. Family and nurse are at bedside. Undergoing CPAP trials. vital signs Vital Sign Date Time Temp Pulse Resp B/P (MAP) Pulse Ox O2 Delivery O2 Flow Rate FiO2 03/10/25 13:56 98 25 97/70 (79) 94 40 03/10/25 09:30 98.1 208.6 03/10/25 08:00 Mechanical Ventilator+ Total Intake and Output 03/09/25 03/09/25 03/10/25 15:00 23:00 07:00 Intake Total 346.358 ml 716.638 ml 633.405 ml Output Total 400 ml 310 ml Balance 346.358 ml 316.638 ml 323.405 ml medications Current Medications Medications Dose Ordered Sig/Jose Luis Route Start Time Stop Time Status Last Admin Dose Admin Ondansetron HCl 4 mg Q6HP PRN IV 02/25/25 23:00 02/27/25 17:24 4 MG Pantoprazole Sodium 40 mg DAILY IV 02/26/25 10:00 03/10/25 10:29 40 MG Acetaminophen 650 mg Q6HPRN PRN PO 02/25/25 23:00 02/26/25 02:51 650 MG Lorazepam 1 mg Q6HP PRN PO 02/27/25 16:10 03/03/25 05:19 1 MG Guaifenesin 200 mg Q4HP PRN PO 02/28/25 15:00 03/03/25 05:19 200 MG Albuterol 2.5 mg Q4HWA NEB 02/28/25 18:00 03/10/25 13:56 2.5 MG Ipratropium [place] 0.5 mg Q4HWA NEB 02/28/25 18:00 03/10/25 13:55 0.5 MG Albuterol 2.5 mg Q2HPRN PRN NEB 02/28/25 16:00 03/01/25 03:40 2.5 MG Ipratropium [place] 0.5 mg Q2HPRN PRN NEB 02/28/25 16:00 03/01/25 03:40 0.5 MG Aspirin 81 mg DAILY PO 03/02/25 10:00 03/10/25 10:36 81 MG Propofol 100 ml @ 1.854 mls/ hr Q24H IV 03/03/25 16:15 03/10/25 05:14 1.854 MLS/HR Midazolam HCl 50 ml @ 1 mls/hr Q24H IV 03/03/25 16:15 03/06/25 22:34 2 MLS/HR Fentanyl Citrate 250 ml @ 2.5 mls/hr Q24H IV 03/03/25 16:15 03/10/25 05:11 27.5 MLS/HR Norepinephrine Bitartrate 32 mg/ Sodium Chloride 250 ml @ 0.938 mls/ hr Q24H IV 03/03/25 17:30 03/09/25 17:26 0.938 MLS/HR Vasopressin 20 units/Sodium Chloride 100 ml @ 9 mls/hr Q11H7M IV 03/03/25 17:30 03/05/25 16:34 9 MLS/HR Vancomycin HCl 0 ml @ 0 mls/hr UD IV 03/03/25 18:45 UNV Lactulose 30 ml DAILY PO 03/04/25 10:00 03/08/25 09:12 30 ML Enteral Nutritional Formula 1,000 ml 30ML/HR GT 03/04/25 14:15 Metoclopramide HCl 10 mg Q8HR IV 03/05/25 22:00 03/10/25 06:44 10 MG Oseltamivir Phosphate 30 mg Q12HR PO 03/05/25 22:00 03/10/25 21:59 03/10/25 10:29 30 MG Enoxaparin Sodium 60 mg Q12HR SC 03/06/25 22:00 03/08/25 21:51 60 MG Hydrocortisone Sodium Succinate 50 mg Q8HR IV 03/07/25 22:00 03/10/25 06:44 50 MG Furosemide 40 mg DAILY IV 03/09/25 10:00 03/10/25 10:29 40 MG Cefepime HCl 50 ml @ 12.5 mls/hr Q12HR IV 03/09/25 22:00 03/10/25 10:29 12.5 MLS/HR Quetiapine Fumarate 25 mg BID PO 03/10/25 22:00 Amiodarone HCl 100 mg Q12HR PO 03/10/25 22:00 Atorvastatin Calcium 40 mg HS PO 03/10/25 22:00 UNV objective Oropharynx is clear with a poor dentition. Patient has slight trauma to her lips with the bleeding. Pupils equal round react to light. Heart regular rate and rhythm tachycardia S1 plus S2. Lungs fair air movement without any audible wheezes. Abdomen soft positive bowel sounds. Lower extremities cold to touch at the periphery toe region in both feet. Delayed capillary refill noted. laboratory and microbiology Laboratory Tests 03/10/25 03:40 Test 03/10/25 03:40 Range/Units Serum Glucose 176 H 74-106 mg/dL Assessment/Plan 1. Acute hypoxic respiratory failure requiring intubation and mechanical ventilation, currently on FiO2 50% with a PEEP of% 2. Abdominal pain, acute cholecystitis has been ruled out 3. Suspected pneumonia, on IV antibiotic 4. Acute on chronic congestive heart failure exacerbation with systolic dysfunction 5. Relative hypotension, currently on vasopressor 5. Chronic meth use 6. Acute kidney injury likely hemodynamically mediated, currently off of diuretics 7. Chronic tobacco use disorder/marijuana use 8. Thrombocytopenia suspect Zosyn induced, DC Zosyn, start cefepime Continue present management as she is. We will cut down IV steroids and Seroquel dosages. Continue Precedex and CPAP trials today. Patient's peripheral arterial studies of the lower extremities show stenosis and decreased blood flow. Therefore we will continue Lovenox as she is on and I will have vascular surgery consultation. Overall prognosis remains guarded. Discussed with the patient's family along with the nurse at bedside regarding care plan. Dietary Evaluation Review Comments: 1) Liberalizing to 2gm Na diet 2) Monitor PO intake, lab values, weight trend, and I/O Expected Outcomes/Goals: To meet >75% estimated needs Fu 3-5 days Plan discussed with: Daughter, Other MARCOS PAINTING MD Mar 10, 2025 14:28
--- NOTE | 2025-03-10 14:28 | DVH ---
CLINICAL HISTORY: cold and mottled BLE TECHNIQUE: Color and duplex doppler imagine of the bilateral lower extremity veins was performed. Vessel compression and augmentation if possible was also performed. COMPARISON: US BILAT LOW EXT ART DUPLEX on DOS: 03/10/25, US BILAT LOWER DVT on DOS: 03/02/25, VAS ARTERIAL LOWER EXTREM BILAT on DOS: 05/24/24 FINDINGS: Right Lower Extremity: Right common femoral vein: Normal compressibility and flow. Right superficial femoral vein: Normal compressibility and flow. Right popliteal vein: Normal compressibility and flow. Left Lower Extremity: Left common femoral vein: Normal compressibility and flow. Left superficial femoral vein: Normal compressibility and flow. Left popliteal vein: Normal compressibility and flow. IMPRESSION: NO SONOGRAPHIC EVIDENCE FOR DEEP VENOUS THROMBOSIS IN THE BILATERAL LOWER EXTREMITY VEINS. IS K[place]
[2025-03-10] MEDS ORDERED: LACTULOSE 20Gm/30ML SOLN PO PRN (14:30)
[2025-03-10] MEDS: MAGNESIUM SULFATE 1GM/100ML 100 ML IV ONE (14:54)
[2025-03-10] MEDS: POTASSIUM CHL 20MEQ/100ML 100 ML IV ONE (14:54)
[2025-03-10 16:39] LABS: COVID19 ANTIGEN SOFIA FIA NEGATIVE (NEGATIVE)
[2025-03-10] MEDS ORDERED: IPRATROPIUM BROM 0.5 MG/2.5ML INH SOL NEB SCH (18:00)
[2025-03-10] MEDS: IPRATROPIUM BROM 0.5 MG/2.5ML INH SOL NEB SCH (18:34)
[2025-03-10] MEDS: ALBUTEROL SULF 2.5 MG/0.5ML(0.5%) NEB SOLN NEB SCH (18:34)
--- NOTE | 2025-03-10 20:31 | DVHPN2 ---
Progress Note - Dictate Date Seen: Mar 10, 2025 Medical Necessity Reason Pt with a Central, PICC or Fol: No Subjective Patient was seen in [facility] still intubated Patient failed CPAP trial G-tube feedings will be resumed Tolerating tube feedings at 40ml/hr Liver enzymes are trending down Leukocytosis is improving Hep C antibody is positive Renal function is improving Patient has some bleeding from her mouth as she bit her tongue Ejection fraction is 15% and she is diagnosed with the apical thrombus Patient history of severe coronary artery disease She also had mild diffuse abdominal pain and other chronic pain syndrome Patient has cholelithiasis but a HIDA scan was negative vital signs Vital Sign Date Time Temp Pulse Resp B/P (MAP) Pulse Ox O2 Delivery O2 Flow Rate FiO2 03/10/25 19:44 127 20 92/65 (74) 95 50 03/10/25 18:30 80.2 176.4 03/10/25 16:00 Mechanical Ventilator+ Total Intake and Output 03/09/25 03/09/25 03/10/25 15:00 23:00 07:00 Intake Total 346.358 ml 716.638 ml 633.405 ml Output Total 400 ml 310 ml Balance 346.358 ml 316.638 ml 323.405 ml medications Current Medications Medications Dose Ordered Sig/Jose Luis Route Start Time Stop Time Status Last Admin Dose Admin Ondansetron HCl 4 mg Q6HP PRN IV 02/25/25 23:00 02/27/25 17:24 4 MG Pantoprazole Sodium 40 mg DAILY IV 02/26/25 10:00 03/10/25 10:29 40 MG Acetaminophen 650 mg Q6HPRN PRN PO 02/25/25 23:00 02/26/25 02:51 650 MG Lorazepam 1 mg Q6HP PRN PO 02/27/25 16:10 03/03/25 05:19 1 MG Guaifenesin 200 mg Q4HP PRN PO 02/28/25 15:00 03/03/25 05:19 200 MG Albuterol 2.5 mg Q2HPRN PRN NEB 02/28/25 16:00 03/01/25 03:40 2.5 MG Ipratropium [place] 0.5 mg Q2HPRN PRN NEB 02/28/25 16:00 03/01/25 03:40 0.5 MG Aspirin 81 mg DAILY PO 03/02/25 10:00 03/10/25 10:36 81 MG Propofol 100 ml @ 1.854 mls/ hr Q24H IV 03/03/25 16:15 03/10/25 05:14 1.854 MLS/HR Midazolam HCl 50 ml @ 1 mls/hr Q24H IV 03/03/25 16:15 03/06/25 22:34 2 MLS/HR Fentanyl Citrate 250 ml @ 2.5 mls/hr Q24H IV 03/03/25 16:15 03/10/25 05:11 27.5 MLS/HR Norepinephrine Bitartrate 32 mg/ Sodium Chloride 250 ml @ 0.938 mls/ hr Q24H IV 03/03/25 17:30 03/09/25 17:26 0.938 MLS/HR Vasopressin 20 units/Sodium Chloride 100 ml @ 9 mls/hr Q11H7M IV 03/03/25 17:30 03/05/25 16:34 9 MLS/HR Vancomycin HCl 0 ml @ 0 mls/hr UD IV 03/03/25 18:45 UNV Enteral Nutritional Formula 1,000 ml 30ML/HR GT 03/04/25 14:15 Metoclopramide HCl 10 mg Q8HR IV 03/05/25 22:00 03/10/25 14:54 10 MG Oseltamivir Phosphate 30 mg Q12HR PO 03/05/25 22:00 03/10/25 21:59 03/10/25 10:29 30 MG Enoxaparin Sodium 60 mg Q12HR SC 03/06/25 22:00 03/08/25 21:51 60 MG Cefepime HCl 50 ml @ 12.5 mls/hr Q12HR IV 03/09/25 22:00 03/10/25 10:29 12.5 MLS/HR Amiodarone HCl 100 mg Q12HR PO 03/10/25 22:00 Atorvastatin Calcium 40 mg HS PO 03/10/25 22:00 Albuterol 2.5 mg Q6HWA NEB 03/10/25 18:00 03/10/25 18:34 2.5 MG Furosemide 20 mg DAILY IV 03/11/25 10:00 Hydrocortisone Sodium Succinate 25 mg BID IV 03/10/25 22:00 Lactulose 30 ml DAILY PRN PO 03/10/25 14:30 Quetiapine Fumarate 25 mg QPM PO 03/10/25 18:00 03/10/25 19:45 25 MG Ipratropium [place] 0.5 mg Q6HWA NEB 03/10/25 18:00 Cancel Ipratropium [place] 0.5 mg Q6HWA NEB 03/10/25 18:00 03/10/25 18:34 0.5 MG objective HEENT pupils are reactive Neck is supple oxygen supplementation at the time of my visit at 4:00 p.m. CV is S1-S2 regular rate and rhythm Respiratory diminished breath sounds bases GI positive bowel sound Extremity no edema [employer] no motor deficit laboratory and microbiology Laboratory Tests 03/10/25 03:40 Test 03/10/25 03:40 Range/Units Serum Glucose 176 H 74-106 mg/dL Problems(with codes): (1) ARF (acute renal failure) (2) Influenza B (3) Elevated liver enzymes (4) Amphetamine abuse (5) Hiatal hernia (6) Elevated troponin (7) Abdominal pain (8) Acute pancreatitis (9) Intractable abdominal pain Prognosis Plan Continue supportive care from GI point of view Resume G-tube feedings Monitor labs Ongoing efforts at CPAP trial On IV antibiotics; IV ppi, IV diuretics, oral lactulose Dietary Evaluation Review Comments: 1) Liberalizing to 2gm Na diet 2) Monitor PO intake, lab values, weight trend, and I/O Expected Outcomes/Goals: To meet >75% estimated needs Fu 3-5 days Plan discussed with: Other ([facility] Nurse) TRACY FORD MD Mar 10, 2025 20:31
[2025-03-10] MEDS: HYDROCORTISONE SOD SUCC 100 MG/2ML INJ VIAL IV SCH (21:20)
[2025-03-10] MEDS: AMIODARONE HCL 200 MG TAB PO SCH (21:21)
[2025-03-10] MEDS: ATORVASTATIN 20 MG TAB PO SCH (21:22)
[2025-03-11] VITALS (104 sets, daily range): BP systolic 44–137; BP diastolic 19–94; PULSE 10–125; RESP 9–19; TEMP 97.9–100.4; O2SAT 84–100
[2025-03-11 03:25] LABS: Hematocrit 34.2 % (36.0-46.0); Hemoglobin 10.6 g/dL (12.2-16.2); Mean Corpuscular Hemoglobin 26.1 pg (28.0-32.0); Mean Corpuscular Volume 84.3 fL (80.0-100.0); Nucleated Red Blood Cells % 0.8 %
[2025-03-11 03:33] LABS: Anion Gap 8 (5-15); Calcium 8.8 mg/dL (8.7-10.4); Chloride 104 mmol/L (98-107); Potassium 4.0 mmol/L (3.5-5.1)
[2025-03-11 03:39] LABS: BUN/Creatinine Ratio 32.7 (10.0-20.0)
[2025-03-11 03:42] LABS: Blood Urea Nitrogen 33 mg/dL (9-23); Carbon Dioxide 35 mmol/L (20-31); Glucose 120 mg/dL (74-106); Sodium 147 mmol/L (136-145)
[2025-03-11] MEDS: FUROSEMIDE 40 MG/4 ML VIAL IV SCH (09:43)
--- NOTE | 2025-03-11 10:36 | DVHPN2 ---
Progress Note - Dictate Date Seen: Mar 11, 2025 Medical Necessity Reason Pt with a Central, PICC or Fol: No Subjective Patient remains intubated, patient's son at bedside vital signs Vital Sign Date Time Temp Pulse Resp B/P (MAP) Pulse Ox O2 Delivery O2 Flow Rate FiO2 03/11/25 10:20 123 13 115/89 (98) 95 75 03/11/25 09:00 98.1 208.6 03/11/25 08:00 Mechanical Ventilator+ Total Intake and Output 03/10/25 03/10/25 03/11/25 15:00 23:00 07:00 Intake Total 247.466 ml 361.100 ml 471.282 ml Output Total 500 ml 160 ml Balance 247.466 ml -138.900 ml 311.282 ml medications Current Medications Medications Dose Ordered Sig/Jose Luis Route Start Time Stop Time Status Last Admin Dose Admin Ondansetron HCl 4 mg Q6HP PRN IV 02/25/25 23:00 02/27/25 17:24 4 MG Pantoprazole Sodium 40 mg DAILY IV 02/26/25 10:00 03/11/25 09:43 40 MG Acetaminophen 650 mg Q6HPRN PRN PO 02/25/25 23:00 03/10/25 20:52 650 MG Lorazepam 1 mg Q6HP PRN PO 02/27/25 16:10 03/03/25 05:19 1 MG Guaifenesin 200 mg Q4HP PRN PO 02/28/25 15:00 03/03/25 05:19 200 MG Albuterol 2.5 mg Q2HPRN PRN NEB 02/28/25 16:00 03/01/25 03:40 2.5 MG Ipratropium [place] 0.5 mg Q2HPRN PRN NEB 02/28/25 16:00 03/01/25 03:40 0.5 MG Aspirin 81 mg DAILY PO 03/02/25 10:00 03/11/25 09:46 81 MG Propofol 100 ml @ 1.854 mls/ hr Q24H IV 03/03/25 16:15 03/11/25 09:36 1.854 MLS/HR Midazolam HCl 50 ml @ 1 mls/hr Q24H IV 03/03/25 16:15 03/06/25 22:34 2 MLS/HR Fentanyl Citrate 250 ml @ 2.5 mls/hr Q24H IV 03/03/25 16:15 03/11/25 09:48 20 MLS/HR Norepinephrine Bitartrate 32 mg/ Sodium Chloride 250 ml @ 0.938 mls/ hr Q24H IV 03/03/25 17:30 03/09/25 17:26 0.938 MLS/HR Vasopressin 20 units/Sodium Chloride 100 ml @ 9 mls/hr Q11H7M IV 03/03/25 17:30 03/05/25 16:34 9 MLS/HR Vancomycin HCl 0 ml @ 0 mls/hr UD IV 03/03/25 18:45 UNV Enteral Nutritional Formula 1,000 ml 30ML/HR GT 03/04/25 14:15 Metoclopramide HCl 10 mg Q8HR IV 03/05/25 22:00 03/11/25 05:33 10 MG Enoxaparin Sodium 60 mg Q12HR SC 03/06/25 22:00 03/11/25 09:46 60 MG Cefepime HCl 50 ml @ 12.5 mls/hr Q12HR IV 03/09/25 22:00 03/11/25 09:39 12.5 MLS/HR Amiodarone HCl 100 mg Q12HR PO 03/10/25 22:00 03/11/25 09:46 100 MG Atorvastatin Calcium 40 mg HS PO 03/10/25 22:00 03/10/25 21:22 40 MG Albuterol 2.5 mg Q6HWA NEB 03/10/25 18:00 03/11/25 06:21 2.5 MG Furosemide 20 mg DAILY IV 03/11/25 10:00 03/11/25 09:43 20 MG Hydrocortisone Sodium Succinate 25 mg BID IV 03/10/25 22:00 03/11/25 09:45 25 MG Lactulose 30 ml DAILY PRN PO 03/10/25 14:30 Quetiapine Fumarate 25 mg QPM PO 03/10/25 18:00 03/10/25 19:45 25 MG Ipratropium [place] 0.5 mg Q6HWA NEB 03/10/25 18:00 Cancel Ipratropium [place] 0.5 mg Q6HWA NEB 03/10/25 18:00 03/11/25 06:21 0.5 MG objective Gen: Intubated, sedated lungs: cta anteriorly cvs: no rub ext: no edema laboratory and microbiology Laboratory Tests 03/11/25 02:45 Test 03/11/25 02:45 Range/Units Serum Glucose 120 H 74-106 mg/dL Assessment/Plan IMP: 1) Hemodynamically mediated TARA/VMN prerenal etiology - improving 2) hypernatremia 3) acute hypoxemic respiratory failure 4) septic shock 5) HfrEF REC: - hypotonic IV fluids - even to slightly positive fluid balance as pulmonary status permits - discussed with patient's son at bedside Dietary Evaluation Review Comments: 1) Liberalizing to 2gm Na diet 2) Monitor PO intake, lab values, weight trend, and I/O Expected Outcomes/Goals: To meet >75% estimated needs Fu 3-5 days Plan discussed with: WHIT May MD Mar 11, 2025 10:36
[2025-03-11] MEDS ORDERED: D5W 5% 1,000 ML IV ONE (10:45)
--- NOTE | 2025-03-11 10:47 | DVHPN2 ---
Progress Note - Dictate Date Seen: Mar 11, 2025 Medical Necessity Reason Pt with a Central, PICC or Fol: No Subjective Patient is on intubation and sedated On mechanical ventilation for acute on chronic hypoxic Respiratory Failure fever has improved. vital signs Vital Sign Date Time Temp Pulse Resp B/P (MAP) Pulse Ox O2 Delivery O2 Flow Rate FiO2 03/11/25 10:20 123 13 115/89 (98) 95 75 03/11/25 09:00 98.1 208.6 03/11/25 08:00 Mechanical Ventilator+ Total Intake and Output 03/10/25 03/10/25 03/11/25 15:00 23:00 07:00 Intake Total 247.466 ml 361.100 ml 471.282 ml Output Total 500 ml 160 ml Balance 247.466 ml -138.900 ml 311.282 ml medications Current Medications Medications Dose Ordered Sig/Jose Luis Route Start Time Stop Time Status Last Admin Dose Admin Ondansetron HCl 4 mg Q6HP PRN IV 02/25/25 23:00 02/27/25 17:24 4 MG Pantoprazole Sodium 40 mg DAILY IV 02/26/25 10:00 03/11/25 09:43 40 MG Acetaminophen 650 mg Q6HPRN PRN PO 02/25/25 23:00 03/10/25 20:52 650 MG Lorazepam 1 mg Q6HP PRN PO 02/27/25 16:10 03/03/25 05:19 1 MG Guaifenesin 200 mg Q4HP PRN PO 02/28/25 15:00 03/03/25 05:19 200 MG Albuterol 2.5 mg Q2HPRN PRN NEB 02/28/25 16:00 03/01/25 03:40 2.5 MG Ipratropium [place] 0.5 mg Q2HPRN PRN NEB 02/28/25 16:00 03/01/25 03:40 0.5 MG Aspirin 81 mg DAILY PO 03/02/25 10:00 03/11/25 09:46 81 MG Propofol 100 ml @ 1.854 mls/ hr Q24H IV 03/03/25 16:15 03/11/25 09:36 1.854 MLS/HR Midazolam HCl 50 ml @ 1 mls/hr Q24H IV 03/03/25 16:15 03/06/25 22:34 2 MLS/HR Fentanyl Citrate 250 ml @ 2.5 mls/hr Q24H IV 03/03/25 16:15 03/11/25 09:48 20 MLS/HR Norepinephrine Bitartrate 32 mg/ Sodium Chloride 250 ml @ 0.938 mls/ hr Q24H IV 03/03/25 17:30 03/09/25 17:26 0.938 MLS/HR Vasopressin 20 units/Sodium Chloride 100 ml @ 9 mls/hr Q11H7M IV 03/03/25 17:30 03/05/25 16:34 9 MLS/HR Vancomycin HCl 0 ml @ 0 mls/hr UD IV 03/03/25 18:45 UNV Enteral Nutritional Formula 1,000 ml 30ML/HR GT 03/04/25 14:15 Metoclopramide HCl 10 mg Q8HR IV 03/05/25 22:00 03/11/25 05:33 10 MG Enoxaparin Sodium 60 mg Q12HR SC 03/06/25 22:00 03/11/25 09:46 60 MG Cefepime HCl 50 ml @ 12.5 mls/hr Q12HR IV 03/09/25 22:00 03/11/25 09:39 12.5 MLS/HR Amiodarone HCl 100 mg Q12HR PO 03/10/25 22:00 03/11/25 09:46 100 MG Atorvastatin Calcium 40 mg HS PO 03/10/25 22:00 03/10/25 21:22 40 MG Albuterol 2.5 mg Q6HWA NEB 03/10/25 18:00 03/11/25 06:21 2.5 MG Furosemide 20 mg DAILY IV 03/11/25 10:00 03/11/25 09:43 20 MG Hydrocortisone Sodium Succinate 25 mg BID IV 03/10/25 22:00 03/11/25 09:45 25 MG Lactulose 30 ml DAILY PRN PO 03/10/25 14:30 Quetiapine Fumarate 25 mg QPM PO 03/10/25 18:00 03/10/25 19:45 25 MG Ipratropium [place] 0.5 mg Q6HWA NEB 03/10/25 18:00 Cancel Ipratropium [place] 0.5 mg Q6HWA NEB 03/10/25 18:00 03/11/25 06:21 0.5 MG objective General intubated and sedated HEENT: Atraumatic,intubated Neck: No swelling Lungs: Equal air entry and clear to auscultation Cardiovascular: S1 S2 heard no murmur Abdomen: Soft nontender, no organomegaly, nondistended Neuro: unable to assess laboratory and microbiology Laboratory Tests 03/11/25 02:45 Test 03/11/25 02:45 Range/Units Serum Glucose 120 H 74-106 mg/dL Assessment/Plan A 64-year-old female Shock due to cardiogenic versus septic Influenza B pneumonia Acute hypoxic respiratory failure - on Mechanical ventilation thrombocytopenia fluid overload Hepatitis-C antibody positive Congestive heart failure Apical thrombus Severe pulmonary hypertension Methamphetamine abuse Acute kidney injury Noncompliance Tobacco use COPD Recommendations fever has improved, will monitor. She is on Cefepime ( switched from Zosyn due to Thrombocytopenia). Hemodynamically no acute worsening monitor platelets Patient has been on prolonged course of antibiotics since admission without clear indication of bacterial infection. IF fever resolves, then we will stop antibiotics and monitor. Her Hypotension is more related to cardiac she is off Dopamine and VAsopressin. continues to be on nor epi.. ( even that is trending down) she has multiorgan failure due to underlying history of pulmonary hypertension, CHF, meth abuse She is intubated ; undergoing CPAP trial completed Tamiflu x 5 days total Reviewed all the cultures from the admission until now which are negative except for influenza B Antibiotics history Azithromycin 02/25 until now Ceftriaxone 02/25- 03/03 Linezolid 03/03- now Zosyn: 03/03- 03/10 Cefepime 03/10 Tamiflu 03/05- now Multiple subspecialties are on board such as Cardiology, Nephrology Overall prognosis of this patient is very poor Critical time 50 minutes spent during the encounter plan discussed with treatment team Dietary Evaluation Review Comments: 1) Liberalizing to 2gm Na diet 2) Monitor PO intake, lab values, weight trend, and I/O Expected Outcomes/Goals: To meet >75% estimated needs Fu 3-5 days Plan discussed with: Other ALEJANDRO DOUGHERTY MD Mar 11, 2025 10:47
--- NOTE | 2025-03-11 11:46 | DVHPN2 ---
Progress Note - Dictate Date Seen: Mar 11, 2025 Medical Necessity Reason Pt with a Central, PICC or Fol: No Subjective Sedated comfortable on ventilator. Family and nurse are at bedside. She did not tolerate her CPAP trials yesterday. Today her FiO2 requirements increased to FiO2 75%. vital signs Vital Sign Date Time Temp Pulse Resp B/P (MAP) Pulse Ox O2 Delivery O2 Flow Rate FiO2 03/11/25 10:20 123 13 115/89 (98) 95 75 03/11/25 09:00 98.1 208.6 03/11/25 08:00 Mechanical Ventilator+ Total Intake and Output 03/10/25 03/10/25 03/11/25 15:00 23:00 07:00 Intake Total 247.466 ml 361.100 ml 471.282 ml Output Total 500 ml 160 ml Balance 247.466 ml -138.900 ml 311.282 ml medications Current Medications Medications Dose Ordered Sig/Jose Luis Route Start Time Stop Time Status Last Admin Dose Admin Ondansetron HCl 4 mg Q6HP PRN IV 02/25/25 23:00 02/27/25 17:24 4 MG Pantoprazole Sodium 40 mg DAILY IV 02/26/25 10:00 03/11/25 09:43 40 MG Acetaminophen 650 mg Q6HPRN PRN PO 02/25/25 23:00 03/10/25 20:52 650 MG Lorazepam 1 mg Q6HP PRN PO 02/27/25 16:10 03/03/25 05:19 1 MG Guaifenesin 200 mg Q4HP PRN PO 02/28/25 15:00 03/03/25 05:19 200 MG Albuterol 2.5 mg Q2HPRN PRN NEB 02/28/25 16:00 03/01/25 03:40 2.5 MG Ipratropium [place] 0.5 mg Q2HPRN PRN NEB 02/28/25 16:00 03/01/25 03:40 0.5 MG Aspirin 81 mg DAILY PO 03/02/25 10:00 03/11/25 09:46 81 MG Propofol 100 ml @ 1.854 mls/ hr Q24H IV 03/03/25 16:15 03/11/25 09:36 1.854 MLS/HR Midazolam HCl 50 ml @ 1 mls/hr Q24H IV 03/03/25 16:15 03/06/25 22:34 2 MLS/HR Fentanyl Citrate 250 ml @ 2.5 mls/hr Q24H IV 03/03/25 16:15 03/11/25 09:48 20 MLS/HR Norepinephrine Bitartrate 32 mg/ Sodium Chloride 250 ml @ 0.938 mls/ hr Q24H IV 03/03/25 17:30 03/09/25 17:26 0.938 MLS/HR Vasopressin 20 units/Sodium Chloride 100 ml @ 9 mls/hr Q11H7M IV 03/03/25 17:30 03/05/25 16:34 9 MLS/HR Vancomycin HCl 0 ml @ 0 mls/hr UD IV 03/03/25 18:45 UNV Enteral Nutritional Formula 1,000 ml 30ML/HR GT 03/04/25 14:15 Metoclopramide HCl 10 mg Q8HR IV 03/05/25 22:00 03/11/25 05:33 10 MG Enoxaparin Sodium 60 mg Q12HR SC 03/06/25 22:00 03/11/25 09:46 60 MG Cefepime HCl 50 ml @ 12.5 mls/hr Q12HR IV 03/09/25 22:00 03/11/25 09:39 12.5 MLS/HR Amiodarone HCl 100 mg Q12HR PO 03/10/25 22:00 03/11/25 09:46 100 MG Atorvastatin Calcium 40 mg HS PO 03/10/25 22:00 03/10/25 21:22 40 MG Albuterol 2.5 mg Q6HWA [facility] 03/10/25 18:00 03/11/25 06:21 2.5 MG Hydrocortisone Sodium Succinate 25 mg BID IV 03/10/25 22:00 03/11/25 09:45 25 MG Lactulose 30 ml DAILY PRN PO 03/10/25 14:30 Quetiapine Fumarate 25 mg QPM PO 03/10/25 18:00 03/10/25 19:45 25 MG Ipratropium [place] 0.5 mg Q6HWA NEB 03/10/25 18:00 Cancel Ipratropium [place] 0.5 mg Q6HWA [facility] 03/10/25 18:00 03/11/25 06:21 0.5 MG Furosemide 20 mg BID IV 03/11/25 22:00 UNV objective Family is at bedside. Sedated comfortable on ventilator without distress Oropharynx is clear with a poor dentition. Patient has slight trauma to her lips with the bleeding. Pupils equal round react to light. Heart regular rate and rhythm tachycardia S1 plus S2. Lungs fair air movement without any audible wheezes. Abdomen soft positive bowel sounds. Lower extremities cold to touch at the periphery toe region in both feet. Delayed capillary refill noted. laboratory and microbiology Laboratory Tests 03/11/25 02:45 Test 03/11/25 02:45 Range/Units Serum Glucose 120 H 74-106 mg/dL Assessment/Plan 1. Acute hypoxic respiratory failure requiring intubation and mechanical ventilation, currently on FiO2 50% with a PEEP of% 2. Abdominal pain, acute cholecystitis has been ruled out 3. Suspected pneumonia, on IV antibiotic 4. Acute on chronic congestive heart failure exacerbation with systolic dysfunction 5. Relative hypotension, currently on vasopressor 5. Chronic meth use 6. Acute kidney injury likely hemodynamically mediated, currently off of diuretics 7. Chronic tobacco use disorder/marijuana use 8. Thrombocytopenia suspect Zosyn induced, DC Zosyn, start cefepime Continue current ventilator settings. Consider CPAP trials once the FiO2 below 50%. Follow up chest x-ray today. I will increase her IV Lasix to 20 twice a day to diurese further. Patient has a known ejection fraction of about 15% with cardiomyopathy. Patient intake and output has a positive fluid balance in the last three days. Discussed with the nurse. I have also discussed care plan with the family members at bedside. Overall prognosis remains poor with a guarded condition. Dietary Evaluation Review Comments: 1) Liberalizing to 2gm Na diet 2) Monitor PO intake, lab values, weight trend, and I/O Expected Outcomes/Goals: To meet >75% estimated needs Fu 3-5 days Plan discussed with: Daughter, Son, Other MARCOS PAINTING MD Mar 11, 2025 11:46
[2025-03-11] MEDS: Jevity 1.2 Cal/Fiber 1 Liter GT SCH (12:06)
--- NOTE | 2025-03-11 13:50 | DVH ---
EXAM: XY CHEST PORTABLE CLINICAL HISTORY: vent TECHNIQUE: Single AP view of the chest WID: COMPARISON: XY CHEST PORTABLE on DOS: 03/10/25, FINDINGS: Lines and tubes: Endotracheal tube projects 4 cm above the hosea. Gastric tube projects over the gas tric fundus. Right IJ central venous catheter projects over the right atrium. Left-sided dual lead AI CD with lead tips projecting over the right atrium and right ventricle. Chest: Cardiomegaly and pulmonary vascular congestion. Calcified plaque projects over the aortic arch. Bilateral pleural effusions. Linear areas of scarring or atelectasis in the lower lungs. Low lung vol umes. Patchy perihilar mixed opacities. The osseous structures are grossly intact. Bony demineralization. IMPRESSION: 1. Indwelling support devices in place as described. 2. Cardiomegaly and pulmonary vascular congestion. Small bilateral pleural effusions. 3. Patchy perihilar mixed opacities which could be pulmonary edema and/or multifocal pneumonia.
[2025-03-11] MEDS: D5W 5% 1,000 ML IV ONE (14:49)
--- NOTE | 2025-03-11 15:41 | DVHPN2 ---
Progress Note - Dictate Date Seen: Mar 11, 2025 Medical Necessity Reason Pt with a Central, PICC or Fol: No vital signs Vital Sign Date Time Temp Pulse Resp B/P (MAP) Pulse Ox O2 Delivery O2 Flow Rate FiO2 03/11/25 15:30 99.5 124 12 110/76 (87) 97 211.1 03/11/25 14:08 75 03/11/25 08:00 Mechanical Ventilator+ Total Intake and Output 03/10/25 03/10/25 03/11/25 14:59 22:59 06:59 Intake Total 273.403 ml 325.818 ml 479.90 ml Output Total 500 ml 160 ml Balance 273.403 ml -174.182 ml 319.90 ml medications Current Medications Medications Dose Ordered Sig/Jose Luis Route Start Time Stop Time Status Last Admin Dose Admin Ondansetron HCl 4 mg Q6HP PRN IV 02/25/25 23:00 02/27/25 17:24 4 MG Pantoprazole Sodium 40 mg DAILY IV 02/26/25 10:00 03/11/25 09:43 40 MG Acetaminophen 650 mg Q6HPRN PRN PO 02/25/25 23:00 03/10/25 20:52 650 MG Lorazepam 1 mg Q6HP PRN PO 02/27/25 16:10 03/03/25 05:19 1 MG Guaifenesin 200 mg Q4HP PRN PO 02/28/25 15:00 03/03/25 05:19 200 MG Albuterol 2.5 mg Q2HPRN PRN NEB 02/28/25 16:00 03/01/25 03:40 2.5 MG Ipratropium [place] 0.5 mg Q2HPRN PRN NEB 02/28/25 16:00 03/01/25 03:40 0.5 MG Aspirin 81 mg DAILY PO 03/02/25 10:00 03/11/25 09:46 81 MG Propofol 100 ml @ 1.854 mls/ hr Q24H IV 03/03/25 16:15 03/11/25 09:36 1.854 MLS/HR Midazolam HCl 50 ml @ 1 mls/hr Q24H IV 03/03/25 16:15 03/06/25 22:34 2 MLS/HR Fentanyl Citrate 250 ml @ 2.5 mls/hr Q24H IV 03/03/25 16:15 03/11/25 09:48 20 MLS/HR Norepinephrine Bitartrate 32 mg/ Sodium Chloride 250 ml @ 0.938 mls/ hr Q24H IV 03/03/25 17:30 03/09/25 17:26 0.938 MLS/HR Vasopressin 20 units/Sodium Chloride 100 ml @ 9 mls/hr Q11H7M IV 03/03/25 17:30 03/05/25 16:34 9 MLS/HR Vancomycin HCl 0 ml @ 0 mls/hr UD IV 03/03/25 18:45 UNV Enteral Nutritional Formula 1,000 ml 30ML/HR GT 03/04/25 14:15 03/11/25 12:06 1,000 ML Metoclopramide HCl 10 mg Q8HR IV 03/05/25 22:00 03/11/25 14:48 10 MG Enoxaparin Sodium 60 mg Q12HR SC 03/06/25 22:00 03/11/25 09:46 60 MG Cefepime HCl 50 ml @ 12.5 mls/hr Q12HR IV 03/09/25 22:00 03/11/25 09:39 12.5 MLS/HR Amiodarone HCl 100 mg Q12HR PO 03/10/25 22:00 03/11/25 09:46 100 MG Atorvastatin Calcium 40 mg HS PO 03/10/25 22:00 03/10/25 21:22 40 MG Albuterol 2.5 mg Q6HWA [facility] 03/10/25 18:00 03/11/25 12:09 2.5 MG Hydrocortisone Sodium Succinate 25 mg BID IV 03/10/25 22:00 03/11/25 09:45 25 MG Lactulose 30 ml DAILY PRN PO 03/10/25 14:30 Quetiapine Fumarate 25 mg QPM PO 03/10/25 18:00 03/10/25 19:45 25 MG Ipratropium [place] 0.5 mg Q6HWA NEB 03/10/25 18:00 Cancel Ipratropium [place] 0.5 mg Q6HWA NEB 03/10/25 18:00 03/11/25 12:09 0.5 MG Furosemide 20 mg BIDD IV 03/11/25 18:00 laboratory and microbiology Laboratory Tests 03/11/25 02:45 Test 03/11/25 02:45 Range/Units Serum Glucose 120 H 74-106 mg/dL Assessment/Plan Patient is seen and examined in the ICU Diagnosis Influenza B Pneumonia Acute hypoxemic respiratory failure Renal failure Metabolic acidosis Patient seen and examined in ICU Events Remains on the ventilator S/p intubation Worsening oxygenation PEEP increased to 10, FiO2 75% Labs and imaging reviewed Positive for Hepatitis C Chest x-ray reviewed ABG reviewed Management plan Continue vent support sedation for vent synchrony Daily ABGs and x-rays Continue bicarb drip and antibiotics Prognosis poor Consider bronchoscopy crit care time 35 minutes Dietary Evaluation Review Comments: 1) Liberalizing to 2gm Na diet 2) Monitor PO intake, lab values, weight trend, and I/O Expected Outcomes/Goals: To meet >75% estimated needs Fu 3-5 days Plan discussed with: Other (Rn) EVANS UGARTE MD Mar 11, 2025 15:41
[2025-03-11] MEDS: FUROSEMIDE 20 MG/2 ML VIAL IV SCH (17:40)
[2025-03-12] VITALS (96 sets, daily range): BP systolic 78–111; BP diastolic 55–78; PULSE 81–130; RESP 10–20; TEMP 97.9–99.3; O2SAT 83–100
[2025-03-12 03:27] LABS: Hematocrit 33.5 % (36.0-46.0); Hemoglobin 10.4 g/dL (12.2-16.2); Mean Corpuscular Hemoglobin 25.9 pg (28.0-32.0); Mean Corpuscular Volume 83.5 fL (80.0-100.0); Nucleated Red Blood Cells % 0.8 %
[2025-03-12 03:41] LABS: Chloride 101 mmol/L (98-107); Potassium 4.1 mmol/L (3.5-5.1); Sodium 144 mmol/L (136-145)
[2025-03-12 03:42] LABS: Anion Gap 7 (5-15)
[2025-03-12 03:43] LABS: Calcium 8.6 mg/dL (8.7-10.4); Carbon Dioxide 36 mmol/L (20-31)
[2025-03-12 03:48] LABS: BUN/Creatinine Ratio 40.0 (10.0-20.0)
[2025-03-12 04:29] LABS: Blood Urea Nitrogen 46 mg/dL (9-23); Glucose 124 mg/dL (74-106)
--- NOTE | 2025-03-12 06:02 | DVH ---
CHEST RADIOGRAPH Indication: Vent Technique: Single frontal view of the chest was obtained Comparison: XY CHEST PORTABLE on DOS: 03/11/25, XY CHEST PORTABLE on DOS: 03/10/25, XY CHEST PORTABLE on DOS: 03/08/25 IMPRESSION: No significant interval change. The heart is enlarged with multilead left cardiac device. Right IJ ca theter tip in the cavoatrial junction. Enteric tube tip is looped presumably within a hiatal hernia. No discrete pneumothorax. Left effusion and opacity appear similar. Right has mildly improved. Supp ort lines and tubes appear otherwise unchanged.
[2025-03-12 07:33] LABS: Base Excess 4.5 mmol/L (-2.0-3.0)
--- NOTE | 2025-03-12 10:34 | DVHPN2 ---
Progress Note - Dictate Date Seen: Mar 12, 2025 Medical Necessity Reason Pt with a Central, PICC or Fol: No Subjective Patient is on intubation and sedated On mechanical ventilation She did not tolerate her CPAP trials yesterday. Her FiO2 requirements increased to 75%. plan for bronchoscopy today vital signs Vital Sign Date Time Temp Pulse Resp B/P (MAP) Pulse Ox O2 Delivery O2 Flow Rate FiO2 03/12/25 09:45 55 03/12/25 09:45 12 98 Mechanical Ventilator+ 03/12/25 09:45 98.4 88 96/64 (75) 209.1 Total Intake and Output 03/11/25 03/11/25 03/12/25 15:00 23:00 07:00 Intake Total 303.168 ml 1253.334 ml 779.733 ml Output Total 100 ml 375 ml Balance 303.168 ml 1153.334 ml 404.733 ml medications Current Medications Medications Dose Ordered Sig/Jose Luis Route Start Time Stop Time Status Last Admin Dose Admin Ondansetron HCl 4 mg Q6HP PRN IV 02/25/25 23:00 02/27/25 17:24 4 MG Pantoprazole Sodium 40 mg DAILY IV 02/26/25 10:00 03/11/25 09:43 40 MG Acetaminophen 650 mg Q6HPRN PRN PO 02/25/25 23:00 03/10/25 20:52 650 MG Lorazepam 1 mg Q6HP PRN PO 02/27/25 16:10 03/03/25 05:19 1 MG Guaifenesin 200 mg Q4HP PRN PO 02/28/25 15:00 03/03/25 05:19 200 MG Albuterol 2.5 mg Q2HPRN PRN NEB 02/28/25 16:00 03/01/25 03:40 2.5 MG Ipratropium [place] 0.5 mg Q2HPRN PRN NEB 02/28/25 16:00 03/01/25 03:40 0.5 MG Aspirin 81 mg DAILY PO 03/02/25 10:00 03/11/25 09:46 81 MG Propofol 100 ml @ 1.854 mls/ hr Q24H IV 03/03/25 16:15 03/11/25 21:47 5.562 MLS/HR Midazolam HCl 50 ml @ 1 mls/hr Q24H IV 03/03/25 16:15 03/06/25 22:34 2 MLS/HR Fentanyl Citrate 250 ml @ 2.5 mls/hr Q24H IV 03/03/25 16:15 03/11/25 20:15 20 MLS/HR Norepinephrine Bitartrate 32 mg/ Sodium Chloride 250 ml @ 0.938 mls/ hr Q24H IV 03/03/25 17:30 03/11/25 17:39 4.688 MLS/HR Vasopressin 20 units/Sodium Chloride 100 ml @ 9 mls/hr Q11H7M IV 03/03/25 17:30 03/05/25 16:34 9 MLS/HR Vancomycin HCl 0 ml @ 0 mls/hr UD IV 03/03/25 18:45 UNV Enteral Nutritional Formula 1,000 ml 30ML/HR GT 03/04/25 14:15 03/11/25 12:06 1,000 ML Metoclopramide HCl 10 mg Q8HR IV 03/05/25 22:00 03/12/25 06:21 10 MG Enoxaparin Sodium 60 mg Q12HR SC 03/06/25 22:00 03/11/25 09:46 60 MG Cefepime HCl 50 ml @ 12.5 mls/hr Q12HR IV 03/09/25 22:00 03/11/25 21:47 12.5 MLS/HR Amiodarone HCl 100 mg Q12HR PO 03/10/25 22:00 03/11/25 21:47 100 MG Atorvastatin Calcium 40 mg HS PO 03/10/25 22:00 03/11/25 21:47 40 MG Albuterol 2.5 mg Q6HWA [facility] 03/10/25 18:00 03/12/25 06:19 2.5 MG Hydrocortisone Sodium Succinate 25 mg BID IV 03/10/25 22:00 03/11/25 21:46 25 MG Lactulose 30 ml DAILY PRN PO 03/10/25 14:30 Quetiapine Fumarate 25 mg QPM PO 03/10/25 18:00 03/11/25 17:40 25 MG Ipratropium [place] 0.5 mg Q6HWA [facility] 03/10/25 18:00 Cancel Ipratropium [place] 0.5 mg Q6HWA NEB 03/10/25 18:00 03/12/25 06:19 0.5 MG Furosemide 20 mg BIDD IV 03/11/25 18:00 03/12/25 06:21 20 MG objective General intubated and sedated HEENT: Atraumatic,intubated Neck: No swelling Lungs: Equal air entry and clear to auscultation Cardiovascular: S1 S2 heard no murmur Abdomen: Soft nontender, no organomegaly, nondistended Neuro: unable to assess laboratory and microbiology Laboratory Tests 03/12/25 03:14 Test 03/12/25 03:14 Range/Units Serum Glucose 124 H 74-106 mg/dL Assessment/Plan A 64-year-old female Shock due to cardiogenic versus septic Influenza B pneumonia Acute hypoxic respiratory failure - on Mechanical ventilation thrombocytopenia fluid overload Hepatitis-C antibody positive Congestive heart failure Apical thrombus Severe pulmonary hypertension Methamphetamine abuse Acute kidney injury Noncompliance Tobacco use COPD Recommendations plan for bronchoscopy; send for cultures fever has improved, will monitor. She is on Cefepime ( switched from Zosyn due to Thrombocytopenia). Hemodynamically no acute worsening monitor platelets Patient has been on prolonged course of antibiotics since admission without clear indication of bacterial infection. IF fever resolves, then we will stop antibiotics and monitor. Her Hypotension is more related to cardiac she is off Dopamine and Vasopressin. continues to be on nor epi.. ( even that is trending down) she has multiorgan failure due to underlying history of pulmonary hypertension, CHF, meth abuse She is intubated ; She did not tolerate her CPAP trials yesterday. Her FiO2 requirements increased to 75%. completed Tamiflu x 5 days total Reviewed all the cultures from the admission until now which are negative except for influenza B Antibiotics history Azithromycin 02/25 until now Ceftriaxone 02/25- 03/03 Linezolid 03/03- now Zosyn: 03/03- 03/10 Cefepime 03/10 Tamiflu 03/05- now Multiple subspecialties are on board such as Cardiology, Nephrology Overall prognosis of this patient is very poor Critical time 50 minutes spent during the encounter plan discussed with treatment team Dietary Evaluation Review Comments: 1) Liberalizing to 2gm Na diet 2) Monitor PO intake, lab values, weight trend, and I/O Expected Outcomes/Goals: To meet >75% estimated needs Fu 3-5 days Plan discussed with: Other ALEJANDRO DOUGHERTY MD Mar 12, 2025 10:34
--- NOTE | 2025-03-12 10:58 | DVHPN2 ---
Consult Progress Note Subjective Review of Systems: Not Done (Intubated) Objective vital signs Vital Sign Date Time Temp Pulse Resp B/P (MAP) Pulse Ox O2 Delivery O2 Flow Rate FiO2 03/12/25 09:59 88 15 90/62 (71) 97 45 03/12/25 09:45 Mechanical Ventilator+ 03/12/25 09:45 98.4 209.1 Total Intake and Output 03/11/25 03/11/25 03/12/25 14:59 22:59 06:59 Intake Total 319.271 ml 1167.313 ml 857.4 ml Output Total 100 ml 375 ml Balance 319.271 ml 1067.313 ml 482.4 ml medications Current Medications Medications Dose Ordered Sig/Jose Luis Route Start Time Stop Time Status Last Admin Dose Admin Ondansetron HCl 4 mg Q6HP PRN IV 02/25/25 23:00 02/27/25 17:24 4 MG Pantoprazole Sodium 40 mg DAILY IV 02/26/25 10:00 03/11/25 09:43 40 MG Acetaminophen 650 mg Q6HPRN PRN PO 02/25/25 23:00 03/10/25 20:52 650 MG Lorazepam 1 mg Q6HP PRN PO 02/27/25 16:10 03/03/25 05:19 1 MG Guaifenesin 200 mg Q4HP PRN PO 02/28/25 15:00 03/03/25 05:19 200 MG Albuterol 2.5 mg Q2HPRN PRN NEB 02/28/25 16:00 03/01/25 03:40 2.5 MG Ipratropium [place] 0.5 mg Q2HPRN PRN NEB 02/28/25 16:00 03/01/25 03:40 0.5 MG Aspirin 81 mg DAILY PO 03/02/25 10:00 03/11/25 09:46 81 MG Propofol 100 ml @ 1.854 mls/ hr Q24H IV 03/03/25 16:15 03/11/25 21:47 5.562 MLS/HR Midazolam HCl 50 ml @ 1 mls/hr Q24H IV 03/03/25 16:15 03/06/25 22:34 2 MLS/HR Fentanyl Citrate 250 ml @ 2.5 mls/hr Q24H IV 03/03/25 16:15 03/11/25 20:15 20 MLS/HR Norepinephrine Bitartrate 32 mg/ Sodium Chloride 250 ml @ 0.938 mls/ hr Q24H IV 03/03/25 17:30 03/11/25 17:39 4.688 MLS/HR Vasopressin 20 units/Sodium Chloride 100 ml @ 9 mls/hr Q11H7M IV 03/03/25 17:30 03/05/25 16:34 9 MLS/HR Vancomycin HCl 0 ml @ 0 mls/hr UD IV 03/03/25 18:45 UNV Enteral Nutritional Formula 1,000 ml 30ML/HR GT 03/04/25 14:15 03/11/25 12:06 1,000 ML Metoclopramide HCl 10 mg Q8HR IV 03/05/25 22:00 03/12/25 06:21 10 MG Enoxaparin Sodium 60 mg Q12HR SC 03/06/25 22:00 03/11/25 09:46 60 MG Cefepime HCl 50 ml @ 12.5 mls/hr Q12HR IV 03/09/25 22:00 03/11/25 21:47 12.5 MLS/HR Amiodarone HCl 100 mg Q12HR PO 03/10/25 22:00 03/11/25 21:47 100 MG Atorvastatin Calcium 40 mg HS PO 03/10/25 22:00 03/11/25 21:47 40 MG Albuterol 2.5 mg Q6HWA [facility] 03/10/25 18:00 03/12/25 06:19 2.5 MG Hydrocortisone Sodium Succinate 25 mg BID IV 03/10/25 22:00 03/11/25 21:46 25 MG Lactulose 30 ml DAILY PRN PO 03/10/25 14:30 Quetiapine Fumarate 25 mg QPM PO 03/10/25 18:00 03/11/25 17:40 25 MG Ipratropium [place] 0.5 mg Q6HWA [facility] 03/10/25 18:00 Cancel Ipratropium [place] 0.5 mg Q6HWA NEB 03/10/25 18:00 03/12/25 06:19 0.5 MG Furosemide 20 mg BIDD IV 03/11/25 18:00 03/12/25 06:21 20 MG Examination: LUNGS:Abnormal (Lantus, FiO2 50%.), CVS:Abnormal (Atrial flutter with variable AV block, controlled rate at 89 beats per minute. +1-2 LE edema), NEURO:Normal laboratory and microbiology Laboratory Tests 03/12/25 03:14 Test 03/12/25 03:14 Range/Units Serum Glucose 124 H 74-106 mg/dL Problem List/Assessment/Plan Problem List/Assessment/Plan Problem List/Assessment/Plan Septic shock with PNA/Influenza B Acute hypoxic respiratory failure secondary to above Acute on chronic decompensated HFrEF, NYHA class III Paroxysmal atrial fibrillation/atrial flutter, Stage 3A (on Amiodarone at home) Severe coronary artery disease with questionable stent placement Peripheral arterial disease, moderate to severe Ischemic cardiomyopathy Presence of ICD ([employer]) Left ventricular apical thrombus Pulmonary hypertension, severe degree Acute kidney injury with hyperkalemia Elevated LFTs Thyroid disease Dyslipidemia Thrombocytopenia Methamphetamine/tobacco abuse Medical noncompliance Plan/Recommendations (Dr. Gibbs) * Transthoracic echocardiogram reveals EF 15-20% with apical thrombus * Recommendations are for DOAC vs warfarin therapy given poor medical compliance * Off vasopressors * Initiate guideline directed medical therapy with optimal hemodynamics * Strict intake and output, daily weights, maintain fluid restriction Continue diuresis with lasix * Therapeutic Lovenox (closely monitor platelet count). Transition to NOAC when appropriate * [id number] VASc score: 5 points, HAS-BLED score: 2 points * Antiarrhythmic therapy, start low-dose amiodarone (monitor LFTs) * Replete electrolytes as necessary, K>4 and Mg>2 * Single-antiplatelet therapy given hx of possible coronary stent * Resume lipid-lowering agent * Close cardiac surveillance Case Discussed with Dr Gibbs. BP marginal, heart rate controlled rate a flutter. Continue supportive management. Continues to be intubated FiO2 50%. Continue diuresis with Lasix as tolerated. Strict I&Os. Plan of care discussed with family, poor overall prognosis, per family considering compassionate extubation if unable to extubate prior to needing tracheostomy. Critical care, time spent: 38 minutes This medical document was created using an electronic medical record system with voice recognition software and computerized dictation system. Although this document has been carefully reviewed, there might still be some phonetic and typographical errors. Occasional wrong-word or ``sound-alike substitutions may have occurred due to the inherent limitations of voice recognition software. These areas are purely typographical due to imperfections of the software programs and do not reflect any compromise in the patient's medical care. Please read the chart carefully and recognize, using context, where these substitutions have occurred. Thank you for allowing me to participate in the management of this patient. The treatment plan was discussed with and agreed upon by patient/family including requesting consultants and ordering of imaging/procedures. Thank you for allowing us to care for this patient. Please call with any questions or concerns. Plan discussed with: Daughter Dietary Evaluation Review Comments: 1) Liberalizing to 2gm Na diet 2) Monitor PO intake, lab values, weight trend, and I/O Expected Outcomes/Goals: To meet >75% estimated needs Fu 3-5 days Date of Service: Mar 12, 2025 Billing Provider: MIRIAM OSPINA Common Visit Codes: 30633-[id number] INP/OBS CARE(HIGH), [id number] CARE 30-74 MIN MIRIAM OSPINA Mar 12, 2025 10:58
--- NOTE | 2025-03-12 14:35 | DVHPN2 ---
Progress Note - Dictate Date Seen: Mar 12, 2025 Medical Necessity Reason Pt with a Central, PICC or Fol: No vital signs Vital Sign Date Time Temp Pulse Resp B/P (MAP) Pulse Ox O2 Delivery O2 Flow Rate FiO2 03/12/25 14:06 98 17 111/72 (85) 94 45 03/12/25 09:45 Mechanical Ventilator+ 03/12/25 09:45 98.4 209.1 Total Intake and Output 03/11/25 03/11/25 03/12/25 15:00 23:00 07:00 Intake Total 303.168 ml 1253.334 ml 779.733 ml Output Total 100 ml 375 ml Balance 303.168 ml 1153.334 ml 404.733 ml medications Current Medications Medications Dose Ordered Sig/Jose Luis Route Start Time Stop Time Status Last Admin Dose Admin Ondansetron HCl 4 mg Q6HP PRN IV 02/25/25 23:00 02/27/25 17:24 4 MG Pantoprazole Sodium 40 mg DAILY IV 02/26/25 10:00 03/12/25 10:57 40 MG Acetaminophen 650 mg Q6HPRN PRN PO 02/25/25 23:00 03/10/25 20:52 650 MG Lorazepam 1 mg Q6HP PRN PO 02/27/25 16:10 03/03/25 05:19 1 MG Guaifenesin 200 mg Q4HP PRN PO 02/28/25 15:00 03/03/25 05:19 200 MG Albuterol 2.5 mg Q2HPRN PRN NEB 02/28/25 16:00 03/01/25 03:40 2.5 MG Ipratropium [place] 0.5 mg Q2HPRN PRN NEB 02/28/25 16:00 03/01/25 03:40 0.5 MG Aspirin 81 mg DAILY PO 03/02/25 10:00 03/12/25 10:59 81 MG Propofol 100 ml @ 1.854 mls/ hr Q24H IV 03/03/25 16:15 03/11/25 21:47 5.562 MLS/HR Midazolam HCl 50 ml @ 1 mls/hr Q24H IV 03/03/25 16:15 03/06/25 22:34 2 MLS/HR Fentanyl Citrate 250 ml @ 2.5 mls/hr Q24H IV 03/03/25 16:15 03/12/25 10:49 20 MLS/HR Norepinephrine Bitartrate 32 mg/ Sodium Chloride 250 ml @ 0.938 mls/ hr Q24H IV 03/03/25 17:30 03/11/25 17:39 4.688 MLS/HR Vasopressin 20 units/Sodium Chloride 100 ml @ 9 mls/hr Q11H7M IV 03/03/25 17:30 03/05/25 16:34 9 MLS/HR Vancomycin HCl 0 ml @ 0 mls/hr UD IV 03/03/25 18:45 UNV Enteral Nutritional Formula 1,000 ml 30ML/HR GT 03/04/25 14:15 03/11/25 12:06 1,000 ML Metoclopramide HCl 10 mg Q8HR IV 03/05/25 22:00 03/12/25 06:21 10 MG Enoxaparin Sodium 60 mg Q12HR SC 03/06/25 22:00 03/12/25 10:59 60 MG Cefepime HCl 50 ml @ 12.5 mls/hr Q12HR IV 03/09/25 22:00 03/12/25 10:57 12.5 MLS/HR Amiodarone HCl 100 mg Q12HR PO 03/10/25 22:00 03/12/25 10:59 100 MG Atorvastatin Calcium 40 mg HS PO 03/10/25 22:00 03/11/25 21:47 40 MG Albuterol 2.5 mg Q6HWA [facility] 03/10/25 18:00 03/12/25 12:12 2.5 MG Hydrocortisone Sodium Succinate 25 mg BID IV 03/10/25 22:00 03/12/25 10:57 25 MG Lactulose 30 ml DAILY PRN PO 03/10/25 14:30 Quetiapine Fumarate 25 mg QPM PO 03/10/25 18:00 03/11/25 17:40 25 MG Ipratropium [place] 0.5 mg Q6HWA NEB 03/10/25 18:00 Cancel Ipratropium [place] 0.5 mg Q6HWA NEB 03/10/25 18:00 03/12/25 12:12 0.5 MG Furosemide 20 mg BIDD IV 03/11/25 18:00 10/19/25 06:21 20 MG laboratory and microbiology Laboratory Tests 03/12/25 03:14 Test 03/12/25 03:14 Range/Units Serum Glucose 124 H 74-106 mg/dL Assessment/Plan Patient is seen and examined in the ICU Diagnosis Influenza B Pneumonia Acute hypoxemic respiratory failure Renal failure Metabolic acidosis Patient seen and examined in ICU Events Remains on the ventilator S/p intubation PEEP 10, FiO2 40% Bronchoscopy was performed at the bedside See separate note for procedure in detail Labs and imaging reviewed Chest x-ray reviewed ABG reviewed Management plan Continue vent support sedation for vent synchrony Daily ABGs and x-rays Continue bicarb drip and antibiotics Prognosis poor crit care time 35 minutes Dietary Evaluation Review Comments: 1) Liberalizing to 2gm Na diet 2) Monitor PO intake, lab values, weight trend, and I/O Expected Outcomes/Goals: To meet >75% estimated needs Fu 3-5 days Plan discussed with: Other (Rn) EVANS UGARTE MD Mar 12, 2025 14:35
--- NOTE | 2025-03-12 14:36 | DVHNC2 ---
Procedure - Procedure- Bronchoscopy and bronchial washings Indication- Secretions Procedure in detail Consent was obtained and timeout performed per protocol. The patient was placed on 100% FiO2. Olympus bronchoscope was used and passed through the endotracheal tube, tracheobronchial tree was examined. There were copious thick, nonpurulent secretions in the airways bilaterally that were loosened up with approximately 50 cc of normal saline and thoroughly suctioned into a separate specimen container. There were no endobronchial lesions however, mucosa appeared inflamed and easily friable. After the procedure, the scope was removed. Patient tolerated the procedure well. EVANS UGARTE MD Mar 12, 2025 14:36
--- NOTE | 2025-03-12 15:36 | DVHPN2 ---
Progress Note - Dictate Date Seen: Mar 12, 2025 Medical Necessity Reason Pt with a Central, PICC or Fol: No Subjective Patient's daughters at bedside vital signs Vital Sign Date Time Temp Pulse Resp B/P (MAP) Pulse Ox O2 Delivery O2 Flow Rate FiO2 03/12/25 15:30 98.6 92 13 84/60 (68) 89 209.5 03/12/25 14:06 45 03/12/25 09:45 Mechanical Ventilator+ Total Intake and Output 03/11/25 03/11/25 03/12/25 15:00 23:00 07:00 Intake Total 303.168 ml 1253.334 ml 779.733 ml Output Total 100 ml 375 ml Balance 303.168 ml 1153.334 ml 404.733 ml medications Current Medications Medications Dose Ordered Sig/Jose Luis Route Start Time Stop Time Status Last Admin Dose Admin Ondansetron HCl 4 mg Q6HP PRN IV 02/25/25 23:00 02/27/25 17:24 4 MG Pantoprazole Sodium 40 mg DAILY IV 02/26/25 10:00 03/12/25 10:57 40 MG Acetaminophen 650 mg Q6HPRN PRN PO 02/25/25 23:00 03/10/25 20:52 650 MG Lorazepam 1 mg Q6HP PRN PO 02/27/25 16:10 03/03/25 05:19 1 MG Guaifenesin 200 mg Q4HP PRN PO 02/28/25 15:00 03/03/25 05:19 200 MG Albuterol 2.5 mg Q2HPRN PRN NEB 02/28/25 16:00 03/01/25 03:40 2.5 MG Ipratropium [place] 0.5 mg Q2HPRN PRN NEB 02/28/25 16:00 03/01/25 03:40 0.5 MG Aspirin 81 mg DAILY PO 03/02/25 10:00 03/12/25 10:59 81 MG Propofol 100 ml @ 1.854 mls/ hr Q24H IV 03/03/25 16:15 03/12/25 15:15 12.978 MLS/HR Midazolam HCl 50 ml @ 1 mls/hr Q24H IV 03/03/25 16:15 03/06/25 22:34 2 MLS/HR Fentanyl Citrate 250 ml @ 2.5 mls/hr Q24H IV 03/03/25 16:15 03/12/25 10:49 20 MLS/HR Norepinephrine Bitartrate 32 mg/ Sodium Chloride 250 ml @ 0.938 mls/ hr Q24H IV 03/03/25 17:30 03/12/25 15:15 7.5 MLS/HR Vasopressin 20 units/Sodium Chloride 100 ml @ 9 mls/hr Q11H7M IV 03/03/25 17:30 03/05/25 16:34 9 MLS/HR Vancomycin HCl 0 ml @ 0 mls/hr UD IV 03/03/25 18:45 UNV Enteral Nutritional Formula 1,000 ml 30ML/HR GT 03/04/25 14:15 03/11/25 12:06 1,000 ML Metoclopramide HCl 10 mg Q8HR IV 03/05/25 22:00 03/12/25 15:13 10 MG Enoxaparin Sodium 60 mg Q12HR SC 03/06/25 22:00 03/12/25 10:59 60 MG Cefepime HCl 50 ml @ 12.5 mls/hr Q12HR IV 03/09/25 22:00 03/12/25 10:57 12.5 MLS/HR Amiodarone HCl 100 mg Q12HR PO 03/10/25 22:00 03/12/25 10:59 100 MG Atorvastatin Calcium 40 mg HS PO 03/10/25 22:00 03/11/25 21:47 40 MG Albuterol 2.5 mg Q6HWA [facility] 03/10/25 18:00 03/12/25 12:12 2.5 MG Hydrocortisone Sodium Succinate 25 mg BID IV 03/10/25 22:00 03/12/25 10:57 25 MG Lactulose 30 ml DAILY PRN PO 03/10/25 14:30 Quetiapine Fumarate 25 mg QPM PO 03/10/25 18:00 03/11/25 17:40 25 MG Ipratropium [place] 0.5 mg Q6HWA [facility] 03/10/25 18:00 Cancel Ipratropium [place] 0.5 mg Q6HWA [facility] 03/10/25 18:00 03/12/25 12:12 0.5 MG Furosemide 20 mg BIDD IV 03/11/25 18:00 03/12/25 06:21 20 MG objective Gen: Intubated, sedated lungs: cta anteriorly cvs: no rub ext: no edema laboratory and microbiology Laboratory Tests 03/12/25 03:14 Test 03/12/25 03:14 Range/Units Serum Glucose 124 H 74-106 mg/dL Assessment/Plan IMP: 1) Hemodynamically mediated TARA/VMN prerenal etiology - improving 2) hypernatremia 3) acute hypoxemic respiratory failure 4) septic shock 5) HfrEF REC: - clinically stable from Nephrology perspective. I will sign off her case. Please reconsult as needed. Thank you. Dietary Evaluation Review Comments: 1) Liberalizing to 2gm Na diet 2) Monitor PO intake, lab values, weight trend, and I/O Expected Outcomes/Goals: To meet >75% estimated needs Fu 3-5 days Plan discussed with: WHIT Lopez MD Mar 12, 2025 15:36
[2025-03-12] MEDS: NOREPINEPHRINE BITARTRATE 32 MG in SODIUM CHL 0.9% 218 ML IV SCH (16:30)
--- NOTE | 2025-03-12 16:41 | DVHPN2 ---
Progress Note - Dictate Date Seen: Mar 12, 2025 Medical Necessity Reason Pt with a Central, PICC or Fol: No Subjective Sedated comfortable on ventilator. Family and nurse are at bedside. Currently she is on FiO2 55% with a PEEP of 10. Heart rate is improved to 80s to 90s. Still on pressors. vital signs Vital Sign Date Time Temp Pulse Resp B/P (MAP) Pulse Ox O2 Delivery O2 Flow Rate FiO2 03/12/25 15:30 98.6 92 13 84/60 (68) 89 209.5 03/12/25 15:10 55 03/12/25 09:45 Mechanical Ventilator+ Total Intake and Output 03/11/25 03/11/25 03/12/25 14:59 22:59 06:59 Intake Total 319.271 ml 1167.313 ml 857.4 ml Output Total 100 ml 375 ml Balance 319.271 ml 1067.313 ml 482.4 ml medications Current Medications Medications Dose Ordered Sig/Jose Luis Route Start Time Stop Time Status Last Admin Dose Admin Ondansetron HCl 4 mg Q6HP PRN IV 02/25/25 23:00 02/27/25 17:24 4 MG Pantoprazole Sodium 40 mg DAILY IV 02/26/25 10:00 03/12/25 10:57 40 MG Acetaminophen 650 mg Q6HPRN PRN PO 02/25/25 23:00 03/10/25 20:52 650 MG Lorazepam 1 mg Q6HP PRN PO 02/27/25 16:10 03/03/25 05:19 1 MG Guaifenesin 200 mg Q4HP PRN PO 02/28/25 15:00 03/03/25 05:19 200 MG Albuterol 2.5 mg Q2HPRN PRN NEB 02/28/25 16:00 03/01/25 03:40 2.5 MG Ipratropium [place] 0.5 mg Q2HPRN PRN NEB 02/28/25 16:00 03/01/25 03:40 0.5 MG Aspirin 81 mg DAILY PO 03/02/25 10:00 03/12/25 10:59 81 MG Propofol 100 ml @ 1.854 mls/ hr Q24H IV 03/03/25 16:15 03/12/25 15:15 12.978 MLS/HR Midazolam HCl 50 ml @ 1 mls/hr Q24H IV 03/03/25 16:15 03/06/25 22:34 2 MLS/HR Fentanyl Citrate 250 ml @ 2.5 mls/hr Q24H IV 03/03/25 16:15 03/12/25 10:49 20 MLS/HR Vasopressin 20 units/Sodium Chloride 100 ml @ 9 mls/hr Q11H7M IV 03/03/25 17:30 03/05/25 16:34 9 MLS/HR Vancomycin HCl 0 ml @ 0 mls/hr UD IV 03/03/25 18:45 UNV Enteral Nutritional Formula 1,000 ml 30ML/HR GT 03/04/25 14:15 03/11/25 12:06 1,000 ML Metoclopramide HCl 10 mg Q8HR IV 03/05/25 22:00 03/12/25 15:13 10 MG Enoxaparin Sodium 60 mg Q12HR SC 03/06/25 22:00 03/12/25 10:59 60 MG Cefepime HCl 50 ml @ 12.5 mls/hr Q12HR IV 03/09/25 22:00 03/12/25 10:57 12.5 MLS/HR Amiodarone HCl 100 mg Q12HR PO 03/10/25 22:00 03/12/25 10:59 100 MG Atorvastatin Calcium 40 mg HS PO 03/10/25 22:00 03/11/25 21:47 40 MG Albuterol 2.5 mg Q6HWA [facility] 03/10/25 18:00 03/12/25 12:12 2.5 MG Hydrocortisone Sodium Succinate 25 mg BID IV 03/10/25 22:00 03/12/25 10:57 25 MG Lactulose 30 ml DAILY PRN PO 03/10/25 14:30 Quetiapine Fumarate 25 mg QPM PO 03/10/25 18:00 03/11/25 17:40 25 MG Ipratropium [place] 0.5 mg Q6HWA NEB 03/10/25 18:00 Cancel Ipratropium [place] 0.5 mg Q6HWA NEB 03/10/25 18:00 03/12/25 12:12 0.5 MG Furosemide 20 mg BIDD IV 03/11/25 18:00 03/12/25 06:21 20 MG Norepinephrine Bitartrate 32 mg/ Sodium Chloride 250 ml @ 0.938 mls/ hr Q24H IV 03/12/25 16:30 objective Family is at bedside. Sedated comfortable on ventilator without distress Oropharynx is clear with a poor dentition. Patient has slight trauma to her lips with the bleeding. Pupils equal round react to light. Heart regular rate and rhythm tachycardia S1 plus S2. Lungs fair air movement without any audible wheezes. Abdomen soft positive bowel sounds. Lower extremities cold to touch at the periphery toe region in both feet. Delayed capillary refill noted. laboratory and microbiology Laboratory Tests 03/12/25 03:14 Test 03/12/25 03:14 Range/Units Serum Glucose 124 H 74-106 mg/dL Assessment/Plan 1. Acute hypoxic respiratory failure requiring intubation and mechanical ventilation, currently on FiO2 50% with a PEEP of% 2. Abdominal pain, acute cholecystitis has been ruled out 3. Suspected pneumonia, on IV antibiotic 4. Acute on chronic congestive heart failure exacerbation with systolic dysfunction 5. Relative hypotension, currently on vasopressor 5. Chronic meth use 6. Acute kidney injury likely hemodynamically mediated, currently off of diuretics 7. Chronic tobacco use disorder/marijuana use 8. Thrombocytopenia suspect Zosyn induced, DC Zosyn, start cefepime Continue current ventilator settings. Continue to titrate the FiO2 as she tolerates. Continue current IV diuresis given her urine output is improved. Further clinical management per clinical course. Overall prognosis remains poor. Patient's family and nurse made aware of her condition at bedside. Dietary Evaluation Review Comments: 1) Liberalizing to 2gm Na diet 2) Monitor PO intake, lab values, weight trend, and I/O Expected Outcomes/Goals: To meet >75% estimated needs Fu 3-5 days Plan discussed with: MARCOS Hicks MD Mar 12, 2025 16:41
[2025-03-13] VITALS (103 sets, daily range): BP systolic 78–126; BP diastolic 44–88; PULSE 83–124; RESP 10–18; TEMP 98.2–100.2; O2SAT 92–100
[2025-03-13 03:59] LABS: Albumin 3.2 g/dL (3.2-4.8); Alkaline Phosphatase 59 U/L (46-116); Anion Gap 8 (5-15); Bilirubin, Total 1.0 mg/dL (0.2-1.0); Chloride 101 mmol/L (98-107); Glucose 92 mg/dL (74-106); Potassium 4.4 mmol/L (3.5-5.1); Sodium 141 mmol/L (136-145); Total Protein 6.1 g/dL (5.7-8.2)
[2025-03-13 04:00] LABS: Nucleated Red Blood Cells % 0.8 %
[2025-03-13 04:02] LABS: Hematocrit 33.7 % (36.0-46.0); Hemoglobin 10.5 g/dL (12.2-16.2); Mean Corpuscular Hemoglobin 26.1 pg (28.0-32.0); Mean Corpuscular Volume 83.6 fL (80.0-100.0)
[2025-03-13 04:11] LABS: Alanine Aminotransferase 84 U/L (7-40); Calcium 8.6 mg/dL (8.7-10.4); Carbon Dioxide 32 mmol/L (20-31)
[2025-03-13 04:12] LABS: BUN/Creatinine Ratio 32.4 (10.0-20.0)
[2025-03-13 04:13] LABS: Blood Urea Nitrogen 47 mg/dL (9-23)
--- NOTE | 2025-03-13 04:49 | DVH ---
CHEST RADIOGRAPH Indication: vent Technique: Single frontal view of the chest was obtained. Comparison: XY CHEST PORTABLE on DOS: 03/12/25 FINDINGS: Lines and Tubes: The endotracheal tube measures 3.9 cm above the hosea. There is a right central ve nous catheter with its tip terminating in the right atrium. AICD is noted. The enteric tube termina yunior within the hiatal hernia. Lungs: Patchy diffuse bilateral opacities noted. Pleura: No effusion. No pneumothorax. Cardiomediastinal contours: Cardiomegaly. Bones: No acute osseous abnormality. IMPRESSION: 1. Enteric tube terminates within the hiatal hernia. Other lines and tubes are unchanged in position. 2. Patchy bilateral airspace opacities.
--- NOTE | 2025-03-13 09:48 | DVHPN2 ---
Progress Note - Dictate Date Seen: Mar 13, 2025 Medical Necessity Reason Pt with a Central, PICC or Fol: No Subjective Patient is on intubation and sedated. On mechanical ventilation for acute on chronic hypoxic Respiratory Failure. Patient's last reported bowel movement was on 03/10 Tolerating feeding with the enteric tube well. vital signs Vital Sign Date Time Temp Pulse Resp B/P (MAP) Pulse Ox O2 Delivery O2 Flow Rate FiO2 03/13/25 08:01 95 16 92/65 (74) 100 45 03/13/25 06:45 99.9 211.8 03/13/25 06:00 Mechanical Ventilator+ Total Intake and Output 03/12/25 03/12/25 03/13/25 15:00 23:00 07:00 Intake Total 341.329 ml 435.439 ml 537.354 ml Output Total 400 ml 250 ml Balance 341.329 ml 35.439 ml 287.354 ml medications Current Medications Medications Dose Ordered Sig/Jose Luis Route Start Time Stop Time Status Last Admin Dose Admin Ondansetron HCl 4 mg Q6HP PRN IV 02/25/25 23:00 02/27/25 17:24 4 MG Pantoprazole Sodium 40 mg DAILY IV 02/26/25 10:00 03/12/25 10:57 40 MG Acetaminophen 650 mg Q6HPRN PRN PO 02/25/25 23:00 03/10/25 20:52 650 MG Lorazepam 1 mg Q6HP PRN PO 02/27/25 16:10 03/03/25 05:19 1 MG Guaifenesin 200 mg Q4HP PRN PO 02/28/25 15:00 03/03/25 05:19 200 MG Albuterol 2.5 mg Q2HPRN PRN NEB 02/28/25 16:00 03/01/25 03:40 2.5 MG Ipratropium [place] 0.5 mg Q2HPRN PRN NEB 02/28/25 16:00 03/01/25 03:40 0.5 MG Aspirin 81 mg DAILY PO 03/02/25 10:00 03/12/25 10:59 81 MG Propofol 100 ml @ 1.854 mls/ hr Q24H IV 03/03/25 16:15 03/13/25 06:54 5.562 MLS/HR Midazolam HCl 50 ml @ 1 mls/hr Q24H IV 03/03/25 16:15 03/06/25 22:34 2 MLS/HR Fentanyl Citrate 250 ml @ 2.5 mls/hr Q24H IV 03/03/25 16:15 03/12/25 21:21 15 MLS/HR Vasopressin 20 units/Sodium Chloride 100 ml @ 9 mls/hr Q11H7M IV 03/03/25 17:30 03/05/25 16:34 9 MLS/HR Vancomycin HCl 0 ml @ 0 mls/hr UD IV 03/03/25 18:45 UNV Enteral Nutritional Formula 1,000 ml 30ML/HR GT 03/04/25 14:15 03/12/25 23:02 1,000 ML Metoclopramide HCl 10 mg Q8HR IV 03/05/25 22:00 03/13/25 06:55 10 MG Enoxaparin Sodium 60 mg Q12HR SC 03/06/25 22:00 03/12/25 21:52 60 MG Cefepime HCl 50 ml @ 12.5 mls/hr Q12HR IV 03/09/25 22:00 03/12/25 21:50 12.5 MLS/HR Amiodarone HCl 100 mg Q12HR PO 03/10/25 22:00 03/12/25 21:53 100 MG Atorvastatin Calcium 40 mg HS PO 03/10/25 22:00 03/12/25 23:06 40 MG Albuterol 2.5 mg Q6HWA [facility] 03/10/25 18:00 03/13/25 06:22 2.5 MG Hydrocortisone Sodium Succinate 25 mg BID IV 03/10/25 22:00 03/12/25 21:52 25 MG Lactulose 30 ml DAILY PRN PO 03/10/25 14:30 Quetiapine Fumarate 25 mg QPM PO 03/10/25 18:00 03/12/25 20:51 25 MG Ipratropium [place] 0.5 mg Q6HWA [facility] 03/10/25 18:00 Cancel Ipratropium [place] 0.5 mg Q6HWA [facility] 03/10/25 18:00 03/13/25 06:22 0.5 MG Furosemide 20 mg BIDD IV 03/11/25 18:00 03/13/25 06:00 20 MG Norepinephrine Bitartrate 32 mg/ Sodium Chloride 250 ml @ 0.938 mls/ hr Q24H IV 03/12/25 16:30 objective General intubated and sedated HEENT: Atraumatic,intubated Neck: No swelling Lungs: Equal air entry and clear to auscultation Cardiovascular: S1 S2 heard no murmur Abdomen: Soft nontender, no organomegaly, nondistended Neuro: unable to assess laboratory and microbiology Laboratory Tests 03/13/25 03:00 Test 03/13/25 03:00 Range/Units Serum Glucose 92 74-106 mg/dL Assessment/Plan A 64-year-old female Shock due to cardiogenic versus septic Influenza B pneumonia Acute hypoxic respiratory failure - on Mechanical ventilation thrombocytopenia fluid overload Hepatitis-C antibody positive Congestive heart failure Apical thrombus Severe pulmonary hypertension Methamphetamine abuse Acute kidney injury Noncompliance Tobacco use COPD Recommendations s/p bronch; follow washing cultures fever has improved, will monitor. She is on Cefepime ( switched from Zosyn due to Thrombocytopenia). Hemodynamically no acute worsening monitor platelets Patient has been on prolonged course of antibiotics since admission without clear indication of bacterial infection. IF fever resolves, then we will stop antibiotics and monitor. Her Hypotension is more related to cardiac she is off Dopamine and Vasopressin. continues to be on nor epi.. ( even that is trending down) she has multiorgan failure due to underlying history of pulmonary hypertension, CHF, meth abuse She is intubated ; She did not tolerate her CPAP trials yesterday. Her FiO2 requirements increased to 75%. completed Tamiflu x 5 days total Reviewed all the cultures from the admission until now which are negative except for influenza B Antibiotics history Azithromycin 02/25 until now Ceftriaxone 02/25- 03/03 Linezolid 03/03- now Zosyn: 03/03- 03/10 Cefepime 03/10 Tamiflu 03/05- now Multiple subspecialties are on board such as Cardiology, Nephrology Overall prognosis of this patient is very poor Critical time 50 minutes spent during the encounter plan discussed with treatment team Dietary Evaluation Review Comments: 1) Liberalizing to 2gm Na diet 2) Monitor PO intake, lab values, weight trend, and I/O Expected Outcomes/Goals: To meet >75% estimated needs Fu 3-5 days Plan discussed with: Other ALEJANDRO DOUGHERTY MD Mar 13, 2025 09:48
--- NOTE | 2025-03-13 10:49 | DVHPN2 ---
Consult Progress Note Subjective Other Systems: Patient remains in atrial fibrillation with controlled rate on laboratory phlebotomist. Objective vital signs Vital Sign Date Time Temp Pulse Resp B/P (MAP) Pulse Ox O2 Delivery O2 Flow Rate FiO2 03/13/25 10:17 92 16 85/54 (64) 98 40 03/13/25 06:45 99.9 211.8 03/13/25 06:00 Mechanical Ventilator+ Total Intake and Output 03/12/25 03/12/25 03/13/25 15:00 23:00 07:00 Intake Total 341.329 ml 435.439 ml 537.354 ml Output Total 400 ml 250 ml Balance 341.329 ml 35.439 ml 287.354 ml medications Current Medications Medications Dose Ordered Sig/Jose Luis Route Start Time Stop Time Status Last Admin Dose Admin Ondansetron HCl 4 mg Q6HP PRN IV 02/25/25 23:00 02/27/25 17:24 4 MG Pantoprazole Sodium 40 mg DAILY IV 02/26/25 10:00 03/12/25 10:57 40 MG Acetaminophen 650 mg Q6HPRN PRN PO 02/25/25 23:00 03/10/25 20:52 650 MG Lorazepam 1 mg Q6HP PRN PO 02/27/25 16:10 03/03/25 05:19 1 MG Guaifenesin 200 mg Q4HP PRN PO 02/28/25 15:00 03/03/25 05:19 200 MG Albuterol 2.5 mg Q2HPRN PRN NEB 02/28/25 16:00 03/01/25 03:40 2.5 MG Ipratropium [place] 0.5 mg Q2HPRN PRN NEB 02/28/25 16:00 03/01/25 03:40 0.5 MG Aspirin 81 mg DAILY PO 03/02/25 10:00 03/12/25 10:59 81 MG Propofol 100 ml @ 1.854 mls/ hr Q24H IV 03/03/25 16:15 03/13/25 06:54 5.562 MLS/HR Midazolam HCl 50 ml @ 1 mls/hr Q24H IV 03/03/25 16:15 03/06/25 22:34 2 MLS/HR Fentanyl Citrate 250 ml @ 2.5 mls/hr Q24H IV 03/03/25 16:15 03/12/25 21:21 15 MLS/HR Vasopressin 20 units/Sodium Chloride 100 ml @ 9 mls/hr Q11H7M IV 03/03/25 17:30 03/05/25 16:34 9 MLS/HR Vancomycin HCl 0 ml @ 0 mls/hr UD IV 03/03/25 18:45 UNV Enteral Nutritional Formula 1,000 ml 30ML/HR GT 03/04/25 14:15 03/12/25 23:02 1,000 ML Metoclopramide HCl 10 mg Q8HR IV 03/05/25 22:00 03/13/25 06:55 10 MG Enoxaparin Sodium 60 mg Q12HR SC 03/06/25 22:00 03/12/25 21:52 60 MG Cefepime HCl 50 ml @ 12.5 mls/hr Q12HR IV 03/09/25 22:00 03/12/25 21:50 12.5 MLS/HR Amiodarone HCl 100 mg Q12HR PO 03/10/25 22:00 03/12/25 21:53 100 MG Atorvastatin Calcium 40 mg HS PO 03/10/25 22:00 03/12/25 23:06 40 MG Albuterol 2.5 mg Q6HWA NEB 03/10/25 18:00 03/13/25 06:22 2.5 MG Hydrocortisone Sodium Succinate 25 mg BID IV 03/10/25 22:00 03/12/25 21:52 25 MG Lactulose 30 ml DAILY PRN PO 03/10/25 14:30 Quetiapine Fumarate 25 mg QPM PO 03/10/25 18:00 03/12/25 20:51 25 MG Ipratropium [place] 0.5 mg Q6HWA NEB 03/10/25 18:00 Cancel Ipratropium [place] 0.5 mg Q6HWA NEB 03/10/25 18:00 03/13/25 06:22 0.5 MG Furosemide 20 mg BIDD IV 03/11/25 18:00 03/13/25 06:00 20 MG Norepinephrine Bitartrate 32 mg/ Sodium Chloride 250 ml @ 0.938 mls/ hr Q24H IV 03/12/25 16:30 Examination: GENERAL:Abnormal, LUNGS:Abnormal (Mechanically ventilated, Fio2 40%, PEEP 10), CVS:Normal (Atrial fibrillation with controlled rate), NEURO:Abnormal (Chemically sedated) laboratory and microbiology Laboratory Tests 03/13/25 03:00 Test 03/13/25 03:00 Range/Units Serum Glucose 92 74-106 mg/dL Problem List/Assessment/Plan Problem List/Assessment/Plan Chronic HFrEF, NYHA class III Apical thrombus Paroxysmal atrial fibrillation, Stage 3A (on Amiodarone at home) Severe coronary artery disease with questionable stent placement Ischemic cardiomyopathy Presence of ICD ([employer]) Septic shock Hypertension Dyslipidemia Acute hypoxic respiratory failure secondary to pneumonia Influenza B positive Pulmonary hypertension, severe degree COPD Transaminitis, improving Hyperkalemia, resolved Acute kidney injury Thrombocytopenia, improving Thyroid disease Methamphetamine abuse Tobacco use Medical noncompliance Plan/Recommendations (Dr. Gibbs): * Transthoracic echocardiogram reveals EF 15-20% with apical thrombus. * Continue therapeutic Lovenox, transition to DOAC with Eliquis prior to discharge * Continue vasopressors for hemodynamic support (Quad concentration to prevent fluid overload) * Unable to continue guideline directed medical therapy for CHF given vasopressor support * Strict intake and output, daily weights, maintain fluid restriction * [id number] VASc score: 5 points, HAS-BLED score: 2 points * Therapeutic Lovenox while inpatient----closely monitor platelet count, transition to NOAC prior to discharge * Unable to initiate beta-wanda given current vasopressor use * Oral amiodarone, monitor LFTs. * Antiplatelet therapy----closely monitor platelet count. * Lipid-lowering agent * Close cardiac surveillance * Antibiotics per primary care team Patient's family waiting to speak with primary care team regarding next step. Family considering terminal wean. Thank you for allowing us to care for this patient. Please call with any questions or concerns. Critical care time spent: 38 minutes. This medical document was created using an electronic medical record system with voice recognition software and computerized dictation system. Although this document has been carefully reviewed, there might still be some phonetic and typographical errors. Occasional wrong-word or ``sound-alike substitutions may have occurred due to the inherent limitations of voice recognition software. These areas are purely typographical due to imperfections of the software programs and do not reflect any compromise in the patient's medical care. Please read the chart carefully and recognize, using context, where these substitutions have occurred. Plan discussed with: Daughter, Other (Bedside RN ) Dietary Evaluation Review Comments: 1) Liberalizing to 2gm Na diet 2) Monitor PO intake, lab values, weight trend, and I/O Expected Outcomes/Goals: To meet >75% estimated needs Fu 3-5 days Date of Service: Mar 13, 2025 Billing Provider: ADELSO HALL Common Visit Codes: 38597-[id number] CARE 30-74 MIN ADELSO HALL Mar 13, 2025 10:49
[2025-03-13] MEDS: LACTULOSE 20Gm/30ML SOLN PO ONE (12:47)
--- NOTE | 2025-03-13 13:03 | DVHPN2 ---
Progress Note Date Seen: Mar 13, 2025 Medical Necessity Reason Pt with a Central, PICC or Fol: Yes The following are medically ne: Central Line, [place] Catheter Subjective Changes from previous H/P or p: Changes (hypotension worsening, previous levophed today) Review of Systems: Deferred Objective vital signs Vital Sign Date Time Temp Pulse Resp B/P (MAP) Pulse Ox O2 Delivery O2 Flow Rate FiO2 03/13/25 11:37 120 18 99/69 (79) 97 35 03/13/25 06:45 99.9 211.8 03/13/25 06:00 Mechanical Ventilator+ Total Intake and Output 03/12/25 03/12/25 03/13/25 14:59 22:59 06:59 Intake Total 340.392 ml 438.855 ml 570.708 ml Output Total 400 ml 250 ml Balance 340.392 ml 38.855 ml 320.708 ml medications Current Medications Medications Dose Ordered Sig/Jose Luis Route Start Time Stop Time Status Last Admin Dose Admin Ondansetron HCl 4 mg Q6HP PRN IV 02/25/25 23:00 02/27/25 17:24 4 MG Pantoprazole Sodium 40 mg DAILY IV 02/26/25 10:00 03/13/25 10:53 40 MG Acetaminophen 650 mg Q6HPRN PRN PO 02/25/25 23:00 03/10/25 20:52 650 MG Lorazepam 1 mg Q6HP PRN PO 02/27/25 16:10 03/03/25 05:19 1 MG Guaifenesin 200 mg Q4HP PRN PO 02/28/25 15:00 03/03/25 05:19 200 MG Albuterol 2.5 mg Q2HPRN PRN NEB 02/28/25 16:00 03/01/25 03:40 2.5 MG Ipratropium [place] 0.5 mg Q2HPRN PRN NEB 02/28/25 16:00 03/01/25 03:40 0.5 MG Aspirin 81 mg DAILY PO 03/02/25 10:00 03/13/25 10:00 81 MG Propofol 100 ml @ 1.854 mls/ hr Q24H IV 03/03/25 16:15 03/13/25 06:54 5.562 MLS/HR Midazolam HCl 50 ml @ 1 mls/hr Q24H IV 03/03/25 16:15 03/06/25 22:34 2 MLS/HR Fentanyl Citrate 250 ml @ 2.5 mls/hr Q24H IV 03/03/25 16:15 03/13/25 11:00 22.5 MLS/HR Vasopressin 20 units/Sodium Chloride 100 ml @ 9 mls/hr Q11H7M IV 03/03/25 17:30 03/05/25 16:34 9 MLS/HR Vancomycin HCl 0 ml @ 0 mls/hr UD IV 03/03/25 18:45 UNV Enteral Nutritional Formula 1,000 ml 30ML/HR GT 03/04/25 14:15 03/12/25 23:02 1,000 ML Metoclopramide HCl 10 mg Q8HR IV 03/05/25 22:00 03/13/25 06:55 10 MG Enoxaparin Sodium 60 mg Q12HR SC 03/06/25 22:00 03/13/25 10:55 60 MG Cefepime HCl 50 ml @ 12.5 mls/hr Q12HR IV 03/09/25 22:00 03/13/25 10:47 12.5 MLS/HR Amiodarone HCl 100 mg Q12HR PO 03/10/25 22:00 03/13/25 10:55 100 MG Atorvastatin Calcium 40 mg HS PO 03/10/25 22:00 03/12/25 23:06 40 MG Albuterol 2.5 mg Q6HWA [facility] 03/10/25 18:00 03/13/25 11:37 2.5 MG Hydrocortisone Sodium Succinate 25 mg BID IV 03/10/25 22:00 03/13/25 10:54 25 MG Quetiapine Fumarate 25 mg QPM PO 03/10/25 18:00 03/12/25 20:51 25 MG Ipratropium [place] 0.5 mg Q6HWA NEB 03/10/25 18:00 Cancel Ipratropium [place] 0.5 mg Q6HWA NEB 03/10/25 18:00 03/13/25 11:37 0.5 MG Furosemide 20 mg BIDD IV 03/11/25 18:00 03/13/25 06:00 20 MG Norepinephrine Bitartrate 32 mg/ Sodium Chloride 250 ml @ 0.938 mls/ hr Q24H IV 03/12/25 16:30 Lactulose 30 ml DAILY PO 03/14/25 10:00 Examination: GENERAL:Abnormal, LUNGS:Abnormal, SKIN:Abnormal laboratory and microbiology Laboratory Tests 03/13/25 03:00 Test 03/13/25 03:00 Range/Units Serum Glucose 92 74-106 mg/dL Microbiology Date/Time Source Procedure Growth Status 03/12/25 12:35 Bronchial Washings Gram Stain - Final Resulted 03/12/25 12:35 Bronchial Washings Respiratory Culture Pending Resulted 03/05/25 15:00 Nose MRSA Screen - Final Complete 03/03/25 22:09 Urine - [place] Urine Culture - Final Complete 03/03/25 19:15 Blood Blood Culture - Final NO GROWTH AFTER 5 DAYS OF INCUBATION. Complete Problem List/Assessment/Plan Problem List/Assessment/Plan Acute kidney injury hemodynamically mediated -renal function is worsening due to hypoperfusion and tachycardia currently has increased pressor requirements -clinical evidence of poor vascular perfusion purple toes and digits -discussed at bedside with daughter patient's for renal outcome and high probability of requiring dialysis however daughter has reported that she will not undergo dialysis -acute respiratory failure secondary to pneumonia superimposed septic shock and congestive heart failure Apical thrombus high-risk for pulmonary embolism Pulmonary hypertension Cardiology determine to place patient on anticoagulation without CT testing due to poor renal function Methamphetamine abuse Ejection fraction less than 15% - continue with pressors to maintain mean arterial pressure greater than 65 monitor urinary output cardiology on the case due to tachycardia Grim prognosis likelihood of survival with this hospitalization is minimal family at bedside to discuss long-term goals of care patient is a hospice candidate Plan discussed with: Daughter Dietary Evaluation Review Comments: 1) Liberalizing to 2gm Na diet 2) Monitor PO intake, lab values, weight trend, and I/O Expected Outcomes/Goals: To meet >75% estimated needs Fu 3-5 days Total Time (mins): 59 JUSTICE CHAN MD Mar 13, 2025 13:03
--- NOTE | 2025-03-13 13:24 | DVHPN2 ---
Progress Note Date Seen: Mar 13, 2025 Resident Creating Document: MARY ANN SARAVIA RESIDENT Medical Necessity Reason Pt with a Central, PICC or Fol: Yes The following are medically ne: Central Line, Henriquez Catheter Subjective Review of Systems Patient seen and examined with the bedside Sedated and on ventilation H&H stable, LFTs have trending down Patient is a hepatitis-C antibody positive History of large hiatal hernia Cholelithiasis but HIDA scan was negative Patient's last reported bowel movement was on 03/10 Tolerating feeding with the enteric tube well, Jevity at 30 mL per with a, residual volume less than 15 mL Objective vital signs Vital Sign Date Time Temp Pulse Resp B/P (MAP) Pulse Ox O2 Delivery O2 Flow Rate FiO2 03/13/25 11:37 120 18 99/69 (79) 97 35 03/13/25 06:45 99.9 211.8 03/13/25 06:00 Mechanical Ventilator+ Total Intake and Output 03/12/25 03/12/25 03/13/25 15:00 23:00 07:00 Intake Total 341.329 ml 435.439 ml 537.354 ml Output Total 400 ml 250 ml Balance 341.329 ml 35.439 ml 287.354 ml medications Current Medications Medications Dose Ordered Sig/Jose Luis Route Start Time Stop Time Status Last Admin Dose Admin Ondansetron HCl 4 mg Q6HP PRN IV 02/25/25 23:00 02/27/25 17:24 4 MG Pantoprazole Sodium 40 mg DAILY IV 02/26/25 10:00 03/13/25 10:53 40 MG Acetaminophen 650 mg Q6HPRN PRN PO 02/25/25 23:00 03/10/25 20:52 650 MG Lorazepam 1 mg Q6HP PRN PO 02/27/25 16:10 03/03/25 05:19 1 MG Guaifenesin 200 mg Q4HP PRN PO 02/28/25 15:00 03/03/25 05:19 200 MG Albuterol 2.5 mg Q2HPRN PRN NEB 02/28/25 16:00 03/01/25 03:40 2.5 MG Ipratropium [place] 0.5 mg Q2HPRN PRN NEB 02/28/25 16:00 03/01/25 03:40 0.5 MG Aspirin 81 mg DAILY PO 03/02/25 10:00 03/13/25 10:00 81 MG Propofol 100 ml @ 1.854 mls/ hr Q24H IV 03/03/25 16:15 03/13/25 06:54 5.562 MLS/HR Midazolam HCl 50 ml @ 1 mls/hr Q24H IV 03/03/25 16:15 03/06/25 22:34 2 MLS/HR Fentanyl Citrate 250 ml @ 2.5 mls/hr Q24H IV 03/03/25 16:15 03/13/25 11:00 22.5 MLS/HR Vasopressin 20 units/Sodium Chloride 100 ml @ 9 mls/hr Q11H7M IV 03/03/25 17:30 03/05/25 16:34 9 MLS/HR Vancomycin HCl 0 ml @ 0 mls/hr UD IV 03/03/25 18:45 UNV Enteral Nutritional Formula 1,000 ml 30ML/HR GT 03/04/25 14:15 03/12/25 23:02 1,000 ML Metoclopramide HCl 10 mg Q8HR IV 03/05/25 22:00 03/13/25 06:55 10 MG Enoxaparin Sodium 60 mg Q12HR SC 03/06/25 22:00 03/13/25 10:55 60 MG Cefepime HCl 50 ml @ 12.5 mls/hr Q12HR IV 03/09/25 22:00 03/13/25 10:47 12.5 MLS/HR Amiodarone HCl 100 mg Q12HR PO 03/10/25 22:00 03/13/25 10:55 100 MG Atorvastatin Calcium 40 mg HS PO 03/10/25 22:00 03/12/25 23:06 40 MG Albuterol 2.5 mg Q6HWA [facility] 03/10/25 18:00 03/13/25 11:37 2.5 MG Hydrocortisone Sodium Succinate 25 mg BID IV 03/10/25 22:00 03/13/25 10:54 25 MG Quetiapine Fumarate 25 mg QPM PO 03/10/25 18:00 03/12/25 20:51 25 MG Ipratropium [place] 0.5 mg Q6HWA [facility] 03/10/25 18:00 Cancel Ipratropium [place] 0.5 mg Q6HWA [facility] 03/10/25 18:00 03/13/25 11:37 0.5 MG Furosemide 20 mg BIDD IV 03/11/25 18:00 03/13/25 06:00 20 MG Norepinephrine Bitartrate 32 mg/ Sodium Chloride 250 ml @ 0.938 mls/ hr Q24H IV 03/12/25 16:30 Lactulose 30 ml DAILY PO 03/14/25 10:00 Examination Gen - no pallor, no scleral icterus Skin - Patients skin is warm and dry. HEENT - normocephalic, atraumatic, dry mucous membranes. Neck - supple, no lymphadenopathy Pulmonary - B/L equal air entry with diminished breath sounds in the base cardiovascular - regular S1,S2 heard GI - soft abdomen. Bowel sounds normoactive. Neurological - Patient is sedated and on mechanical ventilation laboratory and microbiology Laboratory Tests 03/13/25 03:00 Test 03/13/25 03:00 Range/Units Serum Glucose 92 74-106 mg/dL Microbiology Date/Time Source Procedure Growth Status 03/12/25 12:35 Bronchial Washings Gram Stain - Final Resulted 03/12/25 12:35 Bronchial Washings Respiratory Culture Pending Resulted 03/05/25 15:00 Nose MRSA Screen - Final Complete 03/03/25 22:09 Urine - [place] Urine Culture - Final Complete 03/03/25 19:15 Blood Blood Culture - Final NO GROWTH AFTER 5 DAYS OF INCUBATION. Complete Problem List/Assessment/Plan Problem List/Assessment/Plan Assessment Transaminitis likely due to shock liver, improving Hepatitis-C antibody positive Intractable Abdominal pain Large hiatal hernia methamphetamine use Cholelithiasis, no cholecystitis on HIDA scan TARA on CKD likely due to VMN Suspected pneumonia Plan - LFTs trending down - continue on Protonix - lactulose 30 mL daily, continue on Reglan - continue on tube feedings Rest of the management as per the primary team Plan discussed with Dr. Aguila Plan discussed with: Other (ROSANNA Waldron) My Orders My Orders Orders - MARY ANN SARAVIA RESIDENT Procedure Category Date Status Time Lactulose Oral PHA 03/14/25 In Process 10:00 Dietary Evaluation Review Comments: 1) Liberalizing to 2gm Na diet 2) Monitor PO intake, lab values, weight trend, and I/O Expected Outcomes/Goals: To meet >75% estimated needs Fu 3-5 days MARY ANN SARAVIA RESIDENT Mar 13, 2025 13:24
--- NOTE | 2025-03-13 13:35 | DVHPN2 ---
Progress Note - Dictate Date Seen: Mar 13, 2025 Medical Necessity Reason Pt with a Central, PICC or Fol: Yes The following are medically ne: Central Line, [place]quez Catheter vital signs Vital Sign Date Time Temp Pulse Resp B/P (MAP) Pulse Ox O2 Delivery O2 Flow Rate FiO2 03/13/25 11:37 120 18 99/69 (79) 97 35 03/13/25 06:45 99.9 211.8 03/13/25 06:00 Mechanical Ventilator+ Total Intake and Output 03/12/25 03/12/25 03/13/25 15:00 23:00 07:00 Intake Total 341.329 ml 435.439 ml 537.354 ml Output Total 400 ml 250 ml Balance 341.329 ml 35.439 ml 287.354 ml medications Current Medications Medications Dose Ordered Sig/Jose Luis Route Start Time Stop Time Status Last Admin Dose Admin Ondansetron HCl 4 mg Q6HP PRN IV 02/25/25 23:00 02/27/25 17:24 4 MG Pantoprazole Sodium 40 mg DAILY IV 02/26/25 10:00 03/13/25 10:53 40 MG Acetaminophen 650 mg Q6HPRN PRN PO 02/25/25 23:00 03/10/25 20:52 650 MG Lorazepam 1 mg Q6HP PRN PO 02/27/25 16:10 03/03/25 05:19 1 MG Guaifenesin 200 mg Q4HP PRN PO 02/28/25 15:00 03/03/25 05:19 200 MG Albuterol 2.5 mg Q2HPRN PRN NEB 02/28/25 16:00 03/01/25 03:40 2.5 MG Ipratropium [place] 0.5 mg Q2HPRN PRN NEB 02/28/25 16:00 03/01/25 03:40 0.5 MG Aspirin 81 mg DAILY PO 03/02/25 10:00 03/13/25 10:00 81 MG Propofol 100 ml @ 1.854 mls/ hr Q24H IV 03/03/25 16:15 03/13/25 06:54 5.562 MLS/HR Midazolam HCl 50 ml @ 1 mls/hr Q24H IV 03/03/25 16:15 03/06/25 22:34 2 MLS/HR Fentanyl Citrate 250 ml @ 2.5 mls/hr Q24H IV 03/03/25 16:15 03/13/25 11:00 22.5 MLS/HR Vasopressin 20 units/Sodium Chloride 100 ml @ 9 mls/hr Q11H7M IV 03/03/25 17:30 03/05/25 16:34 9 MLS/HR Vancomycin HCl 0 ml @ 0 mls/hr UD IV 03/03/25 18:45 UNV Enteral Nutritional Formula 1,000 ml 30ML/HR GT 03/04/25 14:15 03/12/25 23:02 1,000 ML Metoclopramide HCl 10 mg Q8HR IV 03/05/25 22:00 03/13/25 06:55 10 MG Enoxaparin Sodium 60 mg Q12HR SC 03/06/25 22:00 03/13/25 10:55 60 MG Cefepime HCl 50 ml @ 12.5 mls/hr Q12HR IV 03/09/25 22:00 03/13/25 10:47 12.5 MLS/HR Amiodarone HCl 100 mg Q12HR PO 03/10/25 22:00 03/13/25 10:55 100 MG Atorvastatin Calcium 40 mg HS PO 03/10/25 22:00 03/12/25 23:06 40 MG Albuterol 2.5 mg Q6HWA [facility] [place] 03/10/25 18:00 03/13/25 11:37 2.5 MG Hydrocortisone Sodium Succinate 25 mg BID IV 03/10/25 22:00 03/13/25 10:54 25 MG Quetiapine Fumarate 25 mg QPM PO 03/10/25 18:00 03/12/25 20:51 25 MG Ipratropium [place] 0.5 mg Q6HWA [facility] [place] 03/10/25 18:00 Cancel Ipratropium [place] 0.5 mg Q6HWA [facility] [place] 03/10/25 18:00 03/13/25 11:37 0.5 MG Furosemide 20 mg BIDD IV 03/11/25 18:00 03/13/25 06:00 20 MG Norepinephrine Bitartrate 32 mg/ Sodium Chloride 250 ml @ 0.938 mls/ hr Q24H IV 03/12/25 16:30 Lactulose 30 ml DAILY PO 03/14/25 10:00 laboratory and microbiology Laboratory Tests 03/13/25 03:00 Test 03/13/25 03:00 Range/Units Serum Glucose 92 74-106 mg/dL Assessment/Plan Patient is seen and examined in the ICU Diagnosis Influenza B Pneumonia Acute hypoxemic respiratory failure Renal failure Metabolic acidosis Patient seen and examined in ICU Events Remains on the ventilator S/p intubation PEEP 10, FiO2 40% S/w family extensively Patient continues to decline, no signs of improvement End-stage cardiomyopathy, 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% Pulmonary hypertension which is a confounding factor Followed by cardiology for intracardiac thrombus Patient is not a candidate for prolonged life support Family contemplating comfort measures S/p bronchoscopy Labs and imaging reviewed Chest x-ray reviewed ABG reviewed Management plan Continue vent support sedation for vent synchrony Daily ABGs and x-rays Continue bicarb drip and antibiotics Patient is not a candidate for prolonged life support Family contemplating comfort measures Prognosis very poor crit care time 35 minutes Dietary Evaluation Review Comments: 1) Liberalizing to 2gm Na diet 2) Monitor PO intake, lab values, weight trend, and I/O Expected Outcomes/Goals: To meet >75% estimated needs Fu 3-5 days Plan discussed with: Other (Rn) EVANS UGARTE MD Mar 13, 2025 13:35
--- NOTE | 2025-03-13 16:24 | DVHPN2 ---
Progress Note - Dictate Date Seen: Mar 13, 2025 Medical Necessity Reason Pt with a Central, PICC or Fol: Yes The following are medically ne: Central Line, Henriquez Catheter Subjective Sedated comfortable on ventilator. Family and nurse are at bedside. No clinical improvement. Had a bronchoscopy yesterday. vital signs Vital Sign Date Time Temp Pulse Resp B/P (MAP) Pulse Ox O2 Delivery O2 Flow Rate FiO2 03/13/25 16:15 93 16 104/65 (78) 95 35 03/13/25 15:30 99.3 210.7 03/13/25 14:00 Mechanical Ventilator+ Total Intake and Output 03/12/25 03/12/25 03/13/25 15:00 23:00 07:00 Intake Total 341.329 ml 435.439 ml 537.354 ml Output Total 400 ml 250 ml Balance 341.329 ml 35.439 ml 287.354 ml medications Current Medications Medications Dose Ordered Sig/Jose Luis Route Start Time Stop Time Status Last Admin Dose Admin Ondansetron HCl 4 mg Q6HP PRN IV 02/25/25 23:00 02/27/25 17:24 4 MG Pantoprazole Sodium 40 mg DAILY IV 02/26/25 10:00 03/13/25 10:53 40 MG Acetaminophen 650 mg Q6HPRN PRN PO 02/25/25 23:00 03/10/25 20:52 650 MG Lorazepam 1 mg Q6HP PRN PO 02/27/25 16:10 03/03/25 05:19 1 MG Guaifenesin 200 mg Q4HP PRN PO 02/28/25 15:00 03/03/25 05:19 200 MG Albuterol 2.5 mg Q2HPRN PRN NEB 02/28/25 16:00 03/01/25 03:40 2.5 MG Ipratropium [place] 0.5 mg Q2HPRN PRN NEB 02/28/25 16:00 03/01/25 03:40 0.5 MG Aspirin 81 mg DAILY PO 03/02/25 10:00 03/13/25 10:00 81 MG Propofol 100 ml @ 1.854 mls/ hr Q24H IV 03/03/25 16:15 03/13/25 06:54 5.562 MLS/HR Midazolam HCl 50 ml @ 1 mls/hr Q24H IV 03/03/25 16:15 03/06/25 22:34 2 MLS/HR Fentanyl Citrate 250 ml @ 2.5 mls/hr Q24H IV 03/03/25 16:15 03/13/25 11:00 22.5 MLS/HR Vasopressin 20 units/Sodium Chloride 100 ml @ 9 mls/hr Q11H7M IV 03/03/25 17:30 03/05/25 16:34 9 MLS/HR Vancomycin HCl 0 ml @ 0 mls/hr UD IV 03/03/25 18:45 UNV Enteral Nutritional Formula 1,000 ml 30ML/HR GT 03/04/25 14:15 03/12/25 23:02 1,000 ML Metoclopramide HCl 10 mg Q8HR IV 03/05/25 22:00 03/13/25 06:55 10 MG Enoxaparin Sodium 60 mg Q12HR SC 03/06/25 22:00 03/13/25 10:55 60 MG Cefepime HCl 50 ml @ 12.5 mls/hr Q12HR IV 03/09/25 22:00 03/13/25 10:47 12.5 MLS/HR Amiodarone HCl 100 mg Q12HR PO 03/10/25 22:00 03/13/25 10:55 100 MG Atorvastatin Calcium 40 mg HS PO 03/10/25 22:00 03/12/25 23:06 40 MG Albuterol 2.5 mg Q6HWA [facility] 03/10/25 18:00 03/13/25 11:37 2.5 MG Hydrocortisone Sodium Succinate 25 mg BID IV 03/10/25 22:00 03/13/25 10:54 25 MG Quetiapine Fumarate 25 mg QPM PO 03/10/25 18:00 03/12/25 20:51 25 MG Ipratropium [place] 0.5 mg Q6HWA [facility] 03/10/25 18:00 Cancel Ipratropium [place] 0.5 mg Q6HWA [facility] 03/10/25 18:00 03/13/25 11:37 0.5 MG Furosemide 20 mg BIDD IV 03/11/25 18:00 03/13/25 06:00 20 MG Norepinephrine Bitartrate 32 mg/ Sodium Chloride 250 ml @ 0.938 mls/ hr Q24H IV 03/12/25 16:30 Lactulose 30 ml DAILY PO 03/14/25 10:00 objective Family is at bedside. Sedated comfortable on ventilator without distress Oropharynx is clear with a poor dentition. Patient has slight trauma to her lips with the bleeding. Pupils equal round react to light. Heart regular rate and rhythm tachycardia S1 plus S2. Lungs fair air movement without any audible wheezes. Abdomen soft positive bowel sounds. Lower extremities cold to touch at the periphery toe region in both feet. Delayed capillary refill noted. laboratory and microbiology Laboratory Tests 03/13/25 03:00 Test 03/13/25 03:00 Range/Units Serum Glucose 92 74-106 mg/dL Assessment/Plan 1. Acute hypoxic respiratory failure requiring intubation and mechanical ventilation, currently on FiO2 50% with a PEEP of% 2. Abdominal pain, acute cholecystitis has been ruled out 3. Suspected pneumonia, on IV antibiotic 4. Acute on chronic congestive heart failure exacerbation with systolic dysfunction 5. Relative hypotension, currently on vasopressor 5. Chronic meth use 6. Acute kidney injury likely hemodynamically mediated, currently off of diuretics 7. Chronic tobacco use disorder/marijuana use 8. Thrombocytopenia suspect Zosyn induced, DC Zosyn, start cefepime Continue current ventilator settings. To continue rest of supportive care and treatment as she is on. If she clinically does not improve in the next 48 hours and unable to successfully extubate family wants to consider comparison at extubation with the terminal wean and comfort care. Discussed with the nurse and family regarding her poor prognosis today at bedside. Dietary Evaluation Review Comments: 1) Liberalizing to 2gm Na diet 2) Monitor PO intake, lab values, weight trend, and I/O Expected Outcomes/Goals: To meet >75% estimated needs Fu 3-5 days Plan discussed with: Other MARCOS PAINTING MD Mar 13, 2025 16:24
[2025-03-14] VITALS (74 sets, daily range): BP systolic 90–124; BP diastolic 55–90; PULSE 82–112; RESP 2–15; TEMP 97.4–99.5; O2SAT 88–100
[2025-03-14 03:27] LABS: Hematocrit 34.2 % (36.0-46.0); Hemoglobin 10.6 g/dL (12.2-16.2); Mean Corpuscular Hemoglobin 25.8 pg (28.0-32.0); Mean Corpuscular Volume 83.4 fL (80.0-100.0); Nucleated Red Blood Cells % 0.0 %
[2025-03-14 03:35] LABS: Chloride 102 mmol/L (98-107); Potassium 4.2 mmol/L (3.5-5.1); Sodium 143 mmol/L (136-145)
[2025-03-14 03:36] LABS: Anion Gap 9 (5-15)
[2025-03-14 03:39] LABS: Calcium 8.6 mg/dL (8.7-10.4); Carbon Dioxide 32 mmol/L (20-31)
[2025-03-14 03:41] LABS: BUN/Creatinine Ratio 36.6 (10.0-20.0)
[2025-03-14 03:44] LABS: Blood Urea Nitrogen 52 mg/dL (9-23); Glucose 121 mg/dL (74-106)
--- NOTE | 2025-03-14 04:30 | DVH ---
CHEST RADIOGRAPH Indication: PNA/VENTILATOR Technique: Single frontal view of the chest was obtained COMPARISON: XY CHEST PORTABLE on DOS: 03/13/25, XY CHEST PORTABLE on DOS: 03/12/25, XY CHEST PORTABLE on DOS: 03/11/25, XY CHEST PORTABLE on DOS: 03/10/25, XY CHEST PORTABLE on DOS: 03/08/25 FINDINGS: Lines and Tubes: Slight interval retraction of endotracheal tube such that the tip now projects appro ximately 5.6 cm above the level of the hosea. Remaining lines and tubes unchanged. Lungs: Stable left pleural effusion and multifocal bilateral pulmonary airspace disease. No pneumothorax. Cardiomediastinal contours: Unremarkable Bones: Unremarkable IMPRESSION: 1. Slight interval retraction of endotracheal tube such that the tip now projects approximately 5.6 c m above the level of the hosea. Remaining lines and tubes unchanged. 2. Cardiomegaly, left pleural effusion and multifocal bilateral pulmonary airspace disease redemonstr ated.
[2025-03-14 07:43] LABS: Base Excess 1.1 mmol/L (-2.0-3.0)
--- NOTE | 2025-03-14 09:38 | DVHPN2 ---
Progress Note Date Seen: Mar 14, 2025 Medical Necessity Reason Pt with a Central, PICC or Fol: Yes The following are medically ne: Central Line, Henriquez Catheter Objective vital signs Vital Sign Date Time Temp Pulse Resp B/P (MAP) Pulse Ox O2 Delivery O2 Flow Rate FiO2 03/14/25 08:17 90 13 109/74 (86) 96 35 03/14/25 06:00 Mechanical Ventilator+ 03/13/25 23:15 98.6 209.5 Total Intake and Output 03/13/25 03/13/25 03/14/25 15:00 23:00 07:00 Intake Total 324.283 ml 835.000 ml 815.100 ml Output Total 500 ml 650 ml Balance 324.283 ml 335.000 ml 165.100 ml medications Current Medications Medications Dose Ordered Sig/Jose Luis Route Start Time Stop Time Status Last Admin Dose Admin Ondansetron HCl 4 mg Q6HP PRN IV 02/25/25 23:00 02/27/25 17:24 4 MG Pantoprazole Sodium 40 mg DAILY IV 02/26/25 10:00 03/13/25 10:53 40 MG Acetaminophen 650 mg Q6HPRN PRN PO 02/25/25 23:00 03/10/25 20:52 650 MG Lorazepam 1 mg Q6HP PRN PO 02/27/25 16:10 03/03/25 05:19 1 MG Guaifenesin 200 mg Q4HP PRN PO 02/28/25 15:00 03/03/25 05:19 200 MG Albuterol 2.5 mg Q2HPRN PRN NEB 02/28/25 16:00 03/01/25 03:40 2.5 MG Ipratropium [place] 0.5 mg Q2HPRN PRN NEB 02/28/25 16:00 03/01/25 03:40 0.5 MG Aspirin 81 mg DAILY PO 03/02/25 10:00 03/13/25 10:00 81 MG Propofol 100 ml @ 1.854 mls/ hr Q24H IV 03/03/25 16:15 03/13/25 06:54 5.562 MLS/HR Midazolam HCl 50 ml @ 1 mls/hr Q24H IV 03/03/25 16:15 03/13/25 07:15 1 MLS/HR Fentanyl Citrate 250 ml @ 2.5 mls/hr Q24H IV 03/03/25 16:15 03/14/25 01:08 35 MLS/HR Vasopressin 20 units/Sodium Chloride 100 ml @ 9 mls/hr Q11H7M IV 03/03/25 17:30 03/14/25 04:32 9 MLS/HR Vancomycin HCl 0 ml @ 0 mls/hr UD IV 03/03/25 18:45 UNV Enteral Nutritional Formula 1,000 ml 30ML/HR GT 03/04/25 14:15 03/12/25 23:02 1,000 ML Metoclopramide HCl 10 mg Q8HR IV 03/05/25 22:00 03/14/25 05:34 10 MG Enoxaparin Sodium 60 mg Q12HR SC 03/06/25 22:00 03/13/25 21:36 60 MG Cefepime HCl 50 ml @ 12.5 mls/hr Q12HR IV 03/09/25 22:00 03/13/25 21:34 12.5 MLS/HR Amiodarone HCl 100 mg Q12HR PO 03/10/25 22:00 03/13/25 21:36 100 MG Atorvastatin Calcium 40 mg HS PO 03/10/25 22:00 03/12/25 23:06 40 MG Albuterol 2.5 mg Q6HWA [facility] 03/10/25 18:00 03/14/25 06:47 2.5 MG Hydrocortisone Sodium Succinate 25 mg BID IV 03/10/25 22:00 03/13/25 21:35 25 MG Quetiapine Fumarate 25 mg QPM PO 03/10/25 18:00 03/13/25 18:39 25 MG Ipratropium [place] 0.5 mg Q6HWA [facility] 03/10/25 18:00 Cancel Ipratropium [place] 0.5 mg Q6HWA NEB 03/10/25 18:00 03/14/25 06:47 0.5 MG Furosemide 20 mg BIDD IV 03/11/25 18:00 03/14/25 05:32 20 MG Norepinephrine Bitartrate 32 mg/ Sodium Chloride 250 ml @ 0.938 mls/ hr Q24H IV 03/12/25 16:30 Lactulose 30 ml DAILY PO 03/14/25 10:00 Examination: GENERAL:Abnormal, LUNGS:Abnormal, CVS:Abnormal, SKIN:Abnormal laboratory and microbiology Laboratory Tests 03/14/25 02:44 Test 03/14/25 02:44 Range/Units Serum Glucose 121 H 74-106 mg/dL Microbiology Date/Time Source Procedure Growth Status 03/12/25 12:35 Bronchial Washings Gram Stain - Final Resulted 03/12/25 12:35 Bronchial Washings Respiratory Culture - Preliminary Resulted 03/05/25 15:00 Nose MRSA Screen - Final Complete 03/03/25 22:09 Urine - Henriquez [place] Urine Culture - Final Complete 03/03/25 19:15 Blood Blood Culture - Final NO GROWTH AFTER 5 DAYS OF INCUBATION. Complete Problem List/Assessment/Plan Problem List/Assessment/Plan Acute kidney injury hemodynamically mediated -renal function is worsening due to hypoperfusion and tachycardia currently has increased pressor requirements -clinical evidence of poor vascular perfusion purple toes and digits -discussed at bedside with daughter patient's for renal outcome and high probability of requiring dialysis however daughter has reported that she will not undergo dialysis -acute respiratory failure secondary to pneumonia superimposed septic shock and congestive heart failure Apical thrombus high-risk for pulmonary embolism Pulmonary hypertension Cardiology determine to place patient on anticoagulation without CT testing due to poor renal function Methamphetamine abuse Ejection fraction less than 15% - continue with pressors to maintain mean arterial pressure greater than 65 monitor urinary output cardiology on the case due to tachycardia - HR improved today and BP better Grim prognosis likelihood of survival with this hospitalization is minimal family at bedside explained she will not undergo dialysis if she fails Plan discussed with: Daughter My Orders My Orders Orders - JUSTICE CHAN MD Procedure Category Date Status Time Basic Metabolic Panel LAB 03/15/25 Verified 04:00 Dietary Evaluation Review Comments: 1) Liberalizing to 2gm Na diet 2) Monitor PO intake, lab values, weight trend, and I/O Expected Outcomes/Goals: To meet >75% estimated needs Fu 3-5 days Total Time (mins): 40 JUSTICE CHAN MD Mar 14, 2025 09:38
[2025-03-14] MEDS: LACTULOSE 20Gm/30ML SOLN PO SCH (09:41)
--- NOTE | 2025-03-14 10:29 | DVHPN2 ---
Progress Note - Dictate Date Seen: Mar 14, 2025 Medical Necessity Reason Pt with a Central, PICC or Fol: Yes The following are medically ne: Central Line, Henriquez Catheter Subjective Patient is on intubation and sedated. On mechanical ventilation for acute on chronic hypoxic Respiratory Failure. vital signs Vital Sign Date Time Temp Pulse Resp B/P (MAP) Pulse Ox O2 Delivery O2 Flow Rate FiO2 03/14/25 10:00 89 03/14/25 08:17 13 109/74 (86) 96 35 03/14/25 08:00 Mechanical Ventilator+ 03/13/25 23:15 98.6 209.5 Total Intake and Output 03/13/25 03/13/25 03/14/25 15:00 23:00 07:00 Intake Total 324.283 ml 835.000 ml 815.100 ml Output Total 500 ml 650 ml Balance 324.283 ml 335.000 ml 165.100 ml medications Current Medications Medications Dose Ordered Sig/Jose Luis Route Start Time Stop Time Status Last Admin Dose Admin Ondansetron HCl 4 mg Q6HP PRN IV 02/25/25 23:00 02/27/25 17:24 4 MG Pantoprazole Sodium 40 mg DAILY IV 02/26/25 10:00 03/14/25 09:42 40 MG Acetaminophen 650 mg Q6HPRN PRN PO 02/25/25 23:00 03/10/25 20:52 650 MG Lorazepam 1 mg Q6HP PRN PO 02/27/25 16:10 03/03/25 05:19 1 MG Guaifenesin 200 mg Q4HP PRN PO 02/28/25 15:00 03/03/25 05:19 200 MG Albuterol 2.5 mg Q2HPRN PRN NEB 02/28/25 16:00 03/01/25 03:40 2.5 MG Ipratropium [place] 0.5 mg Q2HPRN PRN NEB 02/28/25 16:00 03/01/25 03:40 0.5 MG Aspirin 81 mg DAILY PO 03/02/25 10:00 03/14/25 09:42 81 MG Propofol 100 ml @ 1.854 mls/ hr Q24H IV 03/03/25 16:15 03/13/25 06:54 5.562 MLS/HR Midazolam HCl 50 ml @ 1 mls/hr Q24H IV 03/03/25 16:15 03/13/25 07:15 1 MLS/HR Fentanyl Citrate 250 ml @ 2.5 mls/hr Q24H IV 03/03/25 16:15 03/14/25 01:08 35 MLS/HR Vasopressin 20 units/Sodium Chloride 100 ml @ 9 mls/hr Q11H7M IV 03/03/25 17:30 03/14/25 04:32 9 MLS/HR Vancomycin HCl 0 ml @ 0 mls/hr UD IV 03/03/25 18:45 UNV Enteral Nutritional Formula 1,000 ml 30ML/HR GT 03/04/25 14:15 03/12/25 23:02 1,000 ML Metoclopramide HCl 10 mg Q8HR IV 03/05/25 22:00 03/14/25 05:34 10 MG Enoxaparin Sodium 60 mg Q12HR SC 03/06/25 22:00 03/14/25 09:42 60 MG Cefepime HCl 50 ml @ 12.5 mls/hr Q12HR IV 03/09/25 22:00 03/14/25 09:41 12.5 MLS/HR Amiodarone HCl 100 mg Q12HR PO 03/10/25 22:00 03/14/25 09:42 100 MG Atorvastatin Calcium 40 mg HS PO 03/10/25 22:00 03/12/25 23:06 40 MG Albuterol 2.5 mg Q6HWA [facility] 03/10/25 18:00 03/14/25 06:47 2.5 MG Hydrocortisone Sodium Succinate 25 mg BID IV 03/10/25 22:00 03/14/25 09:41 25 MG Quetiapine Fumarate 25 mg QPM PO 03/10/25 18:00 03/13/25 18:39 25 MG Ipratropium [place] 0.5 mg Q6HWA NEB 03/10/25 18:00 Cancel Ipratropium [place] 0.5 mg Q6HWA NEB 03/10/25 18:00 03/14/25 06:47 0.5 MG Furosemide 20 mg BIDD IV 03/11/25 18:00 03/14/25 05:32 20 MG Norepinephrine Bitartrate 32 mg/ Sodium Chloride 250 ml @ 0.938 mls/ hr Q24H IV 03/12/25 16:30 Lactulose 30 ml DAILY PO 03/14/25 10:00 03/14/25 09:41 30 ML objective General intubated and sedated HEENT: Atraumatic,intubated Neck: No swelling Lungs: Equal air entry and clear to auscultation Cardiovascular: S1 S2 heard no murmur Abdomen: Soft nontender, no organomegaly, nondistended Neuro: unable to assess extremities: purple toes.. poor pheripheral circulation laboratory and microbiology Laboratory Tests 03/14/25 02:44 Test 03/14/25 02:44 Range/Units Serum Glucose 121 H 74-106 mg/dL Assessment/Plan A 64-year-old female Shock due to cardiogenic versus septic Influenza B pneumonia Acute hypoxic respiratory failure - on Mechanical ventilation thrombocytopenia fluid overload Hepatitis-C antibody positive Congestive heart failure Apical thrombus Severe pulmonary hypertension Methamphetamine abuse Acute kidney injury Noncompliance Tobacco use COPD Recommendations s/p bronch; BAL cultures show normal janet.. DC Cefepime WBC count is elevated at 12.7K Family has showed no intentions of HD as per Nephrology is condition worsens due to grim prognosis poor peripheral circulation has purple toes etc/ Patient has been on prolonged course of antibiotics since admission without clear indication of bacterial infection. Her Hypotension is more related to cardiac she is off Dopamine and Vasopressin. continues to be on nor epi.. ( even that is trending down) she has multiorgan failure due to underlying history of pulmonary hypertension, CHF, meth abuse completed Tamiflu x 5 days total Reviewed all the cultures from the admission until now which are negative except for influenza B Antibiotics history Azithromycin 02/25 until now Ceftriaxone 02/25- 03/03 Linezolid 03/03- now Zosyn: 03/03- 03/10 Cefepime 03/10- 03/14 Tamiflu 03/05- now 03/14 chest X ray revealed : Cardiomegaly, left pleural effusion and multifocal bilateral pulmonary airspace disease remonstrated Multiple subspecialties are on board such as Cardiology, Nephrology Overall prognosis of this patient is very poor Critical time 50 minutes spent during the encounter plan discussed with treatment team Dietary Evaluation Review Comments: 1) Liberalizing to 2gm Na diet 2) Monitor PO intake, lab values, weight trend, and I/O Expected Outcomes/Goals: To meet >75% estimated needs Fu 3-5 days Plan discussed with: ALEJANDRO Mahoney MD Mar 14, 2025 10:29
--- NOTE | 2025-03-14 12:27 | DVHPN2 ---
Consult Progress Note Subjective Other Systems: She remains in atrial fibrillation with controlled rate on gambling monitor. Patient on Levophed drip Objective vital signs Vital Sign Date Time Temp Pulse Resp B/P (MAP) Pulse Ox O2 Delivery O2 Flow Rate FiO2 03/14/25 11:42 85 15 114/72 (86) 94 35 03/14/25 10:15 99.3 210.7 03/14/25 10:00 Mechanical Ventilator+ Total Intake and Output 03/13/25 03/13/25 03/14/25 15:00 23:00 07:00 Intake Total 324.283 ml 835.000 ml 815.100 ml Output Total 500 ml 650 ml Balance 324.283 ml 335.000 ml 165.100 ml medications Current Medications Medications Dose Ordered Sig/Jose Luis Route Start Time Stop Time Status Last Admin Dose Admin Ondansetron HCl 4 mg Q6HP PRN IV 02/25/25 23:00 02/27/25 17:24 4 MG Pantoprazole Sodium 40 mg DAILY IV 02/26/25 10:00 03/14/25 09:42 40 MG Acetaminophen 650 mg Q6HPRN PRN PO 02/25/25 23:00 03/10/25 20:52 650 MG Lorazepam 1 mg Q6HP PRN PO 02/27/25 16:10 03/03/25 05:19 1 MG Guaifenesin 200 mg Q4HP PRN PO 02/28/25 15:00 03/03/25 05:19 200 MG Albuterol 2.5 mg Q2HPRN PRN NEB 02/28/25 16:00 03/01/25 03:40 2.5 MG Ipratropium [place] 0.5 mg Q2HPRN PRN NEB 02/28/25 16:00 03/01/25 03:40 0.5 MG Aspirin 81 mg DAILY PO 03/02/25 10:00 03/14/25 09:42 81 MG Propofol 100 ml @ 1.854 mls/ hr Q24H IV 03/03/25 16:15 03/13/25 06:54 5.562 MLS/HR Midazolam HCl 50 ml @ 1 mls/hr Q24H IV 03/03/25 16:15 03/13/25 07:15 1 MLS/HR Fentanyl Citrate 250 ml @ 2.5 mls/hr Q24H IV 03/03/25 16:15 03/14/25 01:08 35 MLS/HR Vasopressin 20 units/Sodium Chloride 100 ml @ 9 mls/hr Q11H7M IV 03/03/25 17:30 03/14/25 04:32 9 MLS/HR Vancomycin HCl 0 ml @ 0 mls/hr UD IV 03/03/25 18:45 UNV Enteral Nutritional Formula 1,000 ml 30ML/HR GT 03/04/25 14:15 03/12/25 23:02 1,000 ML Metoclopramide HCl 10 mg Q8HR IV 03/05/25 22:00 03/14/25 05:34 10 MG Enoxaparin Sodium 60 mg Q12HR SC 03/06/25 22:00 03/14/25 09:42 60 MG Amiodarone HCl 100 mg Q12HR PO 03/10/25 22:00 03/14/25 09:42 100 MG Atorvastatin Calcium 40 mg HS PO 03/10/25 22:00 03/12/25 23:06 40 MG Albuterol 2.5 mg Q6HWA [facility] 03/10/25 18:00 03/14/25 11:42 2.5 MG Hydrocortisone Sodium Succinate 25 mg BID IV 03/10/25 22:00 03/14/25 09:41 25 MG Quetiapine Fumarate 25 mg QPM PO 03/10/25 18:00 03/13/25 18:39 25 MG Ipratropium [place] 0.5 mg Q6HWA [facility] 03/10/25 18:00 Cancel Ipratropium [place] 0.5 mg Q6HWA [facility] 03/10/25 18:00 03/14/25 11:42 0.5 MG Furosemide 20 mg BIDD IV 03/11/25 18:00 03/14/25 05:32 20 MG Norepinephrine Bitartrate 32 mg/ Sodium Chloride 250 ml @ 0.938 mls/ hr Q24H IV 03/12/25 16:30 Lactulose 30 ml DAILY PO 03/14/25 10:00 03/14/25 09:41 30 ML Examination: GENERAL:Abnormal, LUNGS:Abnormal (Mechanically ventilated, Fio2 35%, PEEP 10.0), CVS:Normal, NEURO:Abnormal (Chemically sedated) laboratory and microbiology Laboratory Tests 03/14/25 02:44 Test 03/14/25 02:44 Range/Units Serum Glucose 121 H 74-106 mg/dL Problem List/Assessment/Plan Problem List/Assessment/Plan Acute respiratory failure secondary to pneumonia and influenza B Septic shock Acute on Chronic decompensated HFrEF, NYHA class III Apical thrombus Paroxysmal atrial fibrillation, Stage 3A (on Amiodarone at home) Severe coronary artery disease with questionable stent placement Ischemic cardiomyopathy Presence of ICD ([employer]) Hypertension Dyslipidemia Pulmonary hypertension, severe degree COPD Transaminitis, improving Hyperkalemia, resolved Acute kidney injury Thrombocytopenia, improving Thyroid disease Methamphetamine abuse Tobacco use Medical noncompliance Plan/Recommendations (Dr. Gibbs): * Transthoracic echocardiogram reveals EF 15-20% with apical thrombus. * Continue therapeutic Lovenox, transition to DOAC with Eliquis prior to discharge * Continue vasopressors for hemodynamic support (Quad concentration to prevent fluid overload) * Unable to continue guideline directed medical therapy for CHF given vasopressor support * Strict intake and output, daily weights, maintain fluid restriction * [id number] VASc score: 5 points, HAS-BLED score: 2 points * Therapeutic Lovenox while inpatient----closely monitor platelet count, transition to NOAC prior to discharge * Unable to initiate beta-wanda given current vasopressor use * Oral amiodarone, monitor LFTs. * Antiplatelet therapy----closely monitor platelet count. * Lipid-lowering agent * Close cardiac surveillance * Antibiotics per primary care team Family considering terminal wean, possibly this week. Patient code status was modified by family to include ACLS drugs only. Thank you for allowing us to care for this patient. Please call with any questions or concerns. Critical care time spent: 38 minutes. This medical document was created using an electronic medical record system with voice recognition software and computerized dictation system. Although this document has been carefully reviewed, there might still be some phonetic and typographical errors. Occasional wrong-word or ``sound-alike substitutions may have occurred due to the inherent limitations of voice recognition software. These areas are purely typographical due to imperfections of the software programs and do not reflect any compromise in the patient's medical care. Please read the chart carefully and recognize, using context, where these substitutions have occurred. Plan discussed with: Daughter, Other (Bedside RN) Dietary Evaluation Review Comments: 1) Liberalizing to 2gm Na diet 2) Monitor PO intake, lab values, weight trend, and I/O Expected Outcomes/Goals: To meet >75% estimated needs Fu 3-5 days Date of Service: Mar 14, 2025 Billing Provider: ADELSO HALL Common Visit Codes: 28865-QOBPOGDO CARE 30-74 MIN ADELSO HALL Mar 14, 2025 12:27
--- NOTE | 2025-03-14 15:44 | DVHPN2 ---
Progress Note - Dictate Date Seen: Mar 14, 2025 Medical Necessity Reason Pt with a Central, PICC or Fol: Yes The following are medically ne: Central Line, Henriquez Catheter vital signs Vital Sign Date Time Temp Pulse Resp B/P (MAP) Pulse Ox O2 Delivery O2 Flow Rate FiO2 03/14/25 14:45 93 12 98/61 (73) 90 03/14/25 14:00 Mechanical Ventilator+ 35 35 03/14/25 12:15 98.9 98.9 Total Intake and Output 03/13/25 03/13/25 03/14/25 15:00 23:00 07:00 Intake Total 324.283 ml 835.000 ml 815.100 ml Output Total 500 ml 650 ml Balance 324.283 ml 335.000 ml 165.100 ml medications Current Medications Medications Dose Ordered Sig/Jose Luis Route Start Time Stop Time Status Last Admin Dose Admin Ondansetron HCl 4 mg Q6HP PRN IV 02/25/25 23:00 02/27/25 17:24 4 MG Pantoprazole Sodium 40 mg DAILY IV 02/26/25 10:00 03/14/25 09:42 40 MG Acetaminophen 650 mg Q6HPRN PRN PO 02/25/25 23:00 03/10/25 20:52 650 MG Lorazepam 1 mg Q6HP PRN PO 02/27/25 16:10 03/03/25 05:19 1 MG Guaifenesin 200 mg Q4HP PRN PO 02/28/25 15:00 03/03/25 05:19 200 MG Albuterol 2.5 mg Q2HPRN PRN NEB 02/28/25 16:00 03/01/25 03:40 2.5 MG Ipratropium [place] 0.5 mg Q2HPRN PRN NEB 02/28/25 16:00 03/01/25 03:40 0.5 MG Aspirin 81 mg DAILY PO 03/02/25 10:00 03/14/25 09:42 81 MG Propofol 100 ml @ 1.854 mls/ hr Q24H IV 03/03/25 16:15 03/13/25 06:54 5.562 MLS/HR Midazolam HCl 50 ml @ 1 mls/hr Q24H IV 03/03/25 16:15 03/14/25 15:00 2 MLS/HR Fentanyl Citrate 250 ml @ 2.5 mls/hr Q24H IV 03/03/25 16:15 03/14/25 01:08 35 MLS/HR Vasopressin 20 units/Sodium Chloride 100 ml @ 9 mls/hr Q11H7M IV 03/03/25 17:30 03/14/25 10:00 9 MLS/HR Vancomycin HCl 0 ml @ 0 mls/hr UD IV 03/03/25 18:45 UNV Enteral Nutritional Formula 1,000 ml 30ML/HR GT 03/04/25 14:15 03/12/25 23:02 1,000 ML Metoclopramide HCl 10 mg Q8HR IV 03/05/25 22:00 03/14/25 14:26 10 MG Enoxaparin Sodium 60 mg Q12HR SC 03/06/25 22:00 03/14/25 09:42 60 MG Amiodarone HCl 100 mg Q12HR PO 03/10/25 22:00 03/14/25 09:42 100 MG Atorvastatin Calcium 40 mg HS PO 03/10/25 22:00 03/12/25 23:06 40 MG Albuterol 2.5 mg Q6HWA [facility] 03/10/25 18:00 03/14/25 11:42 2.5 MG Hydrocortisone Sodium Succinate 25 mg BID IV 03/10/25 22:00 03/14/25 09:41 25 MG Quetiapine Fumarate 25 mg QPM PO 03/10/25 18:00 03/13/25 18:39 25 MG Ipratropium [place] 0.5 mg Q6HWA [facility] 03/10/25 18:00 Cancel Ipratropium [place] 0.5 mg Q6HWA [facility] 03/10/25 18:00 03/14/25 11:42 0.5 MG Furosemide 20 mg BIDD IV 03/11/25 18:00 03/14/25 05:32 20 MG Norepinephrine Bitartrate 32 mg/ Sodium Chloride 250 ml @ 0.938 mls/ hr Q24H IV 03/12/25 16:30 Lactulose 30 ml DAILY PO 03/14/25 10:00 03/14/25 09:41 30 ML laboratory and microbiology Laboratory Tests 03/14/25 02:44 Test 03/14/25 02:44 Range/Units Serum Glucose 121 H 74-106 mg/dL Assessment/Plan Patient is seen and examined in the ICU Diagnosis Influenza B Pneumonia Acute hypoxemic respiratory failure Renal failure Metabolic acidosis Patient seen and examined in ICU Events Remains on the ventilator S/p intubation PEEP 10, FiO2 40% S/p bronchoscopy Labs and imaging reviewed Chest x-ray reviewed ABG reviewed Management plan Continue vent support sedation for vent synchrony Daily ABGs and x-rays Continue bicarb drip and antibiotics Patient is not a candidate for prolonged life support Family contemplating comfort measures Prognosis very poor crit care time 35 minutes Dietary Evaluation Review Comments: 1) Liberalizing to 2gm Na diet 2) Monitor PO intake, lab values, weight trend, and I/O Expected Outcomes/Goals: To meet >75% estimated needs Fu 3-5 days Plan discussed with: Other (Rn) EVANS UGARTE MD Mar 14, 2025 15:44
--- NOTE | 2025-03-14 16:01 | DVHPN2 ---
Progress Note - Dictate Date Seen: Mar 14, 2025 Medical Necessity Reason Pt with a Central, PICC or Fol: Yes The following are medically ne: Central Line, Henriquez Catheter Subjective Sedated comfortable on ventilator. Family and nurse are at bedside. Sedation being cut down today. FiO2/vent requirements remain the same. Follow up chest x-ray does not show any improvement in lung parenchyma. vital signs Vital Sign Date Time Temp Pulse Resp B/P (MAP) Pulse Ox O2 Delivery O2 Flow Rate FiO2 03/14/25 14:45 93 12 98/61 (73) 90 03/14/25 14:00 Mechanical Ventilator+ 35 35 03/14/25 12:15 98.9 98.9 Total Intake and Output 03/13/25 03/13/25 03/14/25 15:00 23:00 07:00 Intake Total 324.283 ml 835.000 ml 815.100 ml Output Total 500 ml 650 ml Balance 324.283 ml 335.000 ml 165.100 ml medications Current Medications Medications Dose Ordered Sig/Jose Luis Route Start Time Stop Time Status Last Admin Dose Admin Ondansetron HCl 4 mg Q6HP PRN IV 02/25/25 23:00 02/27/25 17:24 4 MG Pantoprazole Sodium 40 mg DAILY IV 02/26/25 10:00 03/14/25 09:42 40 MG Acetaminophen 650 mg Q6HPRN PRN PO 02/25/25 23:00 03/10/25 20:52 650 MG Lorazepam 1 mg Q6HP PRN PO 02/27/25 16:10 03/03/25 05:19 1 MG Guaifenesin 200 mg Q4HP PRN PO 02/28/25 15:00 03/03/25 05:19 200 MG Albuterol 2.5 mg Q2HPRN PRN NEB 02/28/25 16:00 03/01/25 03:40 2.5 MG Ipratropium [place] 0.5 mg Q2HPRN PRN NEB 02/28/25 16:00 03/01/25 03:40 0.5 MG Aspirin 81 mg DAILY PO 03/02/25 10:00 03/14/25 09:42 81 MG Propofol 100 ml @ 1.854 mls/ hr Q24H IV 03/03/25 16:15 03/13/25 06:54 5.562 MLS/HR Midazolam HCl 50 ml @ 1 mls/hr Q24H IV 03/03/25 16:15 03/14/25 15:00 2 MLS/HR Fentanyl Citrate 250 ml @ 2.5 mls/hr Q24H IV 03/03/25 16:15 03/14/25 01:08 35 MLS/HR Vasopressin 20 units/Sodium Chloride 100 ml @ 9 mls/hr Q11H7M IV 03/03/25 17:30 03/14/25 10:00 9 MLS/HR Vancomycin HCl 0 ml @ 0 mls/hr UD IV 03/03/25 18:45 UNV Enteral Nutritional Formula 1,000 ml 30ML/HR GT 03/04/25 14:15 03/12/25 23:02 1,000 ML Metoclopramide HCl 10 mg Q8HR IV 03/05/25 22:00 03/14/25 14:26 10 MG Enoxaparin Sodium 60 mg Q12HR SC 03/06/25 22:00 03/14/25 09:42 60 MG Amiodarone HCl 100 mg Q12HR PO 03/10/25 22:00 03/14/25 09:42 100 MG Atorvastatin Calcium 40 mg HS PO 03/10/25 22:00 03/12/25 23:06 40 MG Albuterol 2.5 mg Q6HWA [facility] 03/10/25 18:00 03/14/25 11:42 2.5 MG Hydrocortisone Sodium Succinate 25 mg BID IV 03/10/25 22:00 03/14/25 09:41 25 MG Quetiapine Fumarate 25 mg QPM PO 03/10/25 18:00 03/13/25 18:39 25 MG Ipratropium [place] 0.5 mg Q6HWA [facility] 03/10/25 18:00 Cancel Ipratropium [place] 0.5 mg Q6HWA [facility] 03/10/25 18:00 03/14/25 11:42 0.5 MG Furosemide 20 mg BIDD IV 03/11/25 18:00 03/14/25 05:32 20 MG Norepinephrine Bitartrate 32 mg/ Sodium Chloride 250 ml @ 0.938 mls/ hr Q24H IV 03/12/25 16:30 Lactulose 30 ml DAILY PO 03/14/25 10:00 03/14/25 09:41 30 ML objective Family is at bedside. Sedated comfortable on ventilator without distress Oropharynx is clear with a poor dentition. Patient has slight trauma to her lips with the bleeding. Pupils equal round react to light. Heart regular rate and rhythm tachycardia S1 plus S2. Lungs fair air movement without any audible wheezes. Abdomen soft positive bowel sounds. Lower extremities cold to touch at the periphery toe region in both feet. Delayed capillary refill noted. laboratory and microbiology Laboratory Tests 03/14/25 02:44 Test 03/14/25 02:44 Range/Units Serum Glucose 121 H 74-106 mg/dL Assessment/Plan 1. Acute hypoxic respiratory failure requiring intubation and mechanical ventilation, currently on FiO2 50% with a PEEP of% 2. Abdominal pain, acute cholecystitis has been ruled out 3. Suspected pneumonia, on IV antibiotic 4. Acute on chronic congestive heart failure exacerbation with systolic dysfunction 5. Relative hypotension, currently on vasopressor 5. Chronic meth use 6. Acute kidney injury likely hemodynamically mediated, currently off of diuretics 7. Chronic tobacco use disorder/marijuana use 8. Thrombocytopenia suspect Zosyn induced, DC Zosyn, start cefepime Once again discussed with the daughter/son who is at bedside along with the nurse at bedside regarding poor prognosis. They want to wait till end of this week to make further sedation either to consider trach peg versus terminal wean with compassionate extubation. Meantime I have advised the nurse to titrate down the sedation to reconsider CPAP trials. Meantime continue current diuresis and rest of supportive care and treatment. Dietary Evaluation Review Comments: 1) Liberalizing to 2gm Na diet 2) Monitor PO intake, lab values, weight trend, and I/O Expected Outcomes/Goals: To meet >75% estimated needs Fu 3-5 days Plan discussed with: Daughter, Other MARCOS PAINTING MD Mar 14, 2025 16:01
--- NOTE | 2025-03-14 18:46 | DVHPN2 ---
Progress Note Date Seen: Mar 14, 2025 Resident Creating Document: MARY ANN SARAVIA RESIDENT Medical Necessity Reason Pt with a Central, PICC or Fol: Yes The following are medically ne: Central Line, Henriquez Catheter Subjective Review of Systems Patient seen and examined with the bedside Sedated and on ventilation H&H stable, LFTs trending down Patient has a large bowel movement yesterday Tolerating feeding with the enteric tube well, Jevity at 30 mL per with low residual volume Objective vital signs Vital Sign Date Time Temp Pulse Resp B/P (MAP) Pulse Ox O2 Delivery O2 Flow Rate FiO2 03/14/25 18:22 116/75 03/14/25 18:00 Mechanical Ventilator+ 35 35 03/14/25 18:00 112 03/14/25 16:15 12 03/14/25 16:00 98.9 88 98.9 Total Intake and Output 03/13/25 03/13/25 03/14/25 15:00 23:00 07:00 Intake Total 324.283 ml 835.000 ml 815.100 ml Output Total 500 ml 650 ml Balance 324.283 ml 335.000 ml 165.100 ml medications Current Medications Medications Dose Ordered Sig/Jose Luis Route Start Time Stop Time Status Last Admin Dose Admin Ondansetron HCl 4 mg Q6HP PRN IV 02/25/25 23:00 02/27/25 17:24 4 MG Pantoprazole Sodium 40 mg DAILY IV 02/26/25 10:00 03/14/25 09:42 40 MG Acetaminophen 650 mg Q6HPRN PRN PO 02/25/25 23:00 03/10/25 20:52 650 MG Lorazepam 1 mg Q6HP PRN PO 02/27/25 16:10 03/03/25 05:19 1 MG Guaifenesin 200 mg Q4HP PRN PO 02/28/25 15:00 03/03/25 05:19 200 MG Albuterol 2.5 mg Q2HPRN PRN NEB 02/28/25 16:00 03/01/25 03:40 2.5 MG Ipratropium [place] 0.5 mg Q2HPRN PRN NEB 02/28/25 16:00 03/01/25 03:40 0.5 MG Aspirin 81 mg DAILY PO 03/02/25 10:00 03/14/25 09:42 81 MG Propofol 100 ml @ 1.854 mls/ hr Q24H IV 03/03/25 16:15 03/13/25 06:54 5.562 MLS/HR Midazolam HCl 50 ml @ 1 mls/hr Q24H IV 03/03/25 16:15 03/14/25 15:00 2 MLS/HR Fentanyl Citrate 250 ml @ 2.5 mls/hr Q24H IV 03/03/25 16:15 03/14/25 16:00 22.5 MLS/HR Vasopressin 20 units/Sodium Chloride 100 ml @ 9 mls/hr Q11H7M IV 03/03/25 17:30 03/14/25 10:00 9 MLS/HR Vancomycin HCl 0 ml @ 0 mls/hr UD IV 03/03/25 18:45 UNV Enteral Nutritional Formula 1,000 ml 30ML/HR GT 03/04/25 14:15 03/12/25 23:02 1,000 ML Metoclopramide HCl 10 mg Q8HR IV 03/05/25 22:00 03/14/25 14:26 10 MG Enoxaparin Sodium 60 mg Q12HR SC 03/06/25 22:00 03/14/25 09:42 60 MG Amiodarone HCl 100 mg Q12HR PO 03/10/25 22:00 03/14/25 09:42 100 MG Atorvastatin Calcium 40 mg HS PO 03/10/25 22:00 03/12/25 23:06 40 MG Albuterol 2.5 mg Q6HWA [facility] 03/10/25 18:00 03/14/25 18:41 2.5 MG Hydrocortisone Sodium Succinate 25 mg BID IV 03/10/25 22:00 03/14/25 09:41 25 MG Quetiapine Fumarate 25 mg QPM PO 03/10/25 18:00 03/14/25 18:22 25 MG Ipratropium [place] 0.5 mg Q6HWA [facility] 03/10/25 18:00 Cancel Ipratropium [place] 0.5 mg Q6HWA [facility] 03/10/25 18:00 03/14/25 18:41 0.5 MG Furosemide 20 mg BIDD IV 03/11/25 18:00 03/14/25 18:22 20 MG Norepinephrine Bitartrate 32 mg/ Sodium Chloride 250 ml @ 0.938 mls/ hr Q24H IV 03/12/25 16:30 03/14/25 18:22 4.688 MLS/HR Lactulose 30 ml DAILY PO 03/14/25 10:00 03/14/25 09:41 30 ML Examination Gen - no pallor, no scleral icterus Skin - Patients skin is warm and dry. HEENT - normocephalic, atraumatic, dry mucous membranes. Neck - supple, no lymphadenopathy Pulmonary - B/L equal air entry with diminished breath sounds in the base cardiovascular - regular S1,S2 heard GI - soft abdomen. Bowel sounds normoactive. Neurological - Patient is sedated and on mechanical ventilation laboratory and microbiology Laboratory Tests 03/14/25 02:44 Test 03/14/25 02:44 Range/Units Serum Glucose 121 H 74-106 mg/dL Microbiology Date/Time Source Procedure Growth Status 03/12/25 12:35 Bronchial Washings Gram Stain - Final Resulted 03/12/25 12:35 Bronchial Washings Respiratory Culture - Preliminary Resulted 03/05/25 15:00 Nose MRSA Screen - Final Complete 03/03/25 22:09 Urine - [place] Urine Culture - Final Complete 03/03/25 19:15 Blood Blood Culture - Final NO GROWTH AFTER 5 DAYS OF INCUBATION. Complete Problem List/Assessment/Plan Problem List/Assessment/Plan Assessment Transaminitis likely due to shock liver, improving Hepatitis-C antibody positive Intractable Abdominal pain Large hiatal hernia methamphetamine use Cholelithiasis, no cholecystitis on HIDA scan TARA on CKD likely due to VMN Suspected pneumonia Plan - LFTs trending down - continue on Protonix - lactulose 30 mL daily, continue on Reglan - continue on tube feedings Rest of the management as per the primary team Plan discussed with Dr. Aguila Plan discussed with: Daughter, Other (RN Laila) Dietary Evaluation Review Comments: 1) Liberalizing to 2gm Na diet 2) Monitor PO intake, lab values, weight trend, and I/O Expected Outcomes/Goals: To meet >75% estimated needs Fu 3-5 days MARY ANN SARAVIA RESIDENT Mar 14, 2025 18:46
[2025-03-15] VITALS (108 sets, daily range): BP systolic 96–123; BP diastolic 62–85; PULSE 78–114; RESP 11–16; TEMP 96.8–98.6; O2SAT 99–100
[2025-03-15 02:52] LABS: Chloride 104 mmol/L (98-107); Potassium 4.1 mmol/L (3.5-5.1)
[2025-03-15 02:53] LABS: Anion Gap 9 (5-15)
[2025-03-15 02:59] LABS: BUN/Creatinine Ratio 37.4 (10.0-20.0)
[2025-03-15 03:23] LABS: Blood Urea Nitrogen 52 mg/dL (9-23); Calcium 8.4 mg/dL (8.7-10.4); Carbon Dioxide 33 mmol/L (20-31); Glucose 148 mg/dL (74-106); Sodium 146 mmol/L (136-145)
--- NOTE | 2025-03-15 09:40 | DVHPN2 ---
Consult Progress Note Date Seen: Mar 15, 2025 Subjective Other Systems: No overnight cardiac events reported Objective vital signs Vital Sign Date Time Temp Pulse Resp B/P (MAP) Pulse Ox O2 Delivery O2 Flow Rate FiO2 03/15/25 09:28 116/81 03/15/25 06:45 100 12 100 03/15/25 06:13 100 03/15/25 06:00 Mechanical Ventilator+ 03/15/25 04:00 97.6 97.6 Total Intake and Output 03/14/25 03/14/25 03/15/25 15:00 23:00 07:00 Intake Total 186.25 ml 343.376 ml 353.5 ml Output Total 420 ml 800 ml Balance 186.25 ml -76.624 ml -446.5 ml medications Current Medications Medications Dose Ordered Sig/Jose Luis Route Start Time Stop Time Status Last Admin Dose Admin Ondansetron HCl 4 mg Q6HP PRN IV 02/25/25 23:00 02/27/25 17:24 4 MG Pantoprazole Sodium 40 mg DAILY IV 02/26/25 10:00 03/15/25 09:24 40 MG Acetaminophen 650 mg Q6HPRN PRN PO 02/25/25 23:00 03/10/25 20:52 650 MG Lorazepam 1 mg Q6HP PRN PO 02/27/25 16:10 03/03/25 05:19 1 MG Guaifenesin 200 mg Q4HP PRN PO 02/28/25 15:00 03/03/25 05:19 200 MG Albuterol 2.5 mg Q2HPRN PRN NEB 02/28/25 16:00 03/01/25 03:40 2.5 MG Ipratropium [place] 0.5 mg Q2HPRN PRN NEB 02/28/25 16:00 03/01/25 03:40 0.5 MG Aspirin 81 mg DAILY PO 03/02/25 10:00 03/15/25 09:21 81 MG Propofol 100 ml @ 1.854 mls/ hr Q24H IV 03/03/25 16:15 03/13/25 06:54 5.562 MLS/HR Midazolam HCl 50 ml @ 1 mls/hr Q24H IV 03/03/25 16:15 03/15/25 04:56 4 MLS/HR Fentanyl Citrate 250 ml @ 2.5 mls/hr Q24H IV 03/03/25 16:15 03/15/25 09:28 32.5 MLS/HR Vasopressin 20 units/Sodium Chloride 100 ml @ 9 mls/hr Q11H7M IV 03/03/25 17:30 03/15/25 04:56 9 MLS/HR Vancomycin HCl 0 ml @ 0 mls/hr UD IV 03/03/25 18:45 UNV Enteral Nutritional Formula 1,000 ml 30ML/HR GT 03/04/25 14:15 03/12/25 23:02 1,000 ML Metoclopramide HCl 10 mg Q8HR IV 03/05/25 22:00 03/15/25 05:56 10 MG Enoxaparin Sodium 60 mg Q12HR SC 03/06/25 22:00 03/15/25 09:24 60 MG Amiodarone HCl 100 mg Q12HR PO 03/10/25 22:00 03/15/25 09:22 100 MG Atorvastatin Calcium 40 mg HS PO 03/10/25 22:00 03/14/25 22:35 40 MG Albuterol 2.5 mg Q6HWA [facility] 03/10/25 18:00 03/15/25 06:13 2.5 MG Hydrocortisone Sodium Succinate 25 mg BID IV 03/10/25 22:00 03/15/25 09:22 25 MG Quetiapine Fumarate 25 mg QPM PO 03/10/25 18:00 03/14/25 18:22 25 MG Ipratropium [place] 0.5 mg Q6HWA [facility] 03/10/25 18:00 Cancel Ipratropium [place] 0.5 mg Q6HWA [facility] 03/10/25 18:00 03/15/25 06:13 0.5 MG Furosemide 20 mg BIDD IV 03/11/25 18:00 03/15/25 05:58 20 MG Norepinephrine Bitartrate 32 mg/ Sodium Chloride 250 ml @ 0.938 mls/ hr Q24H IV 03/12/25 16:30 03/14/25 18:22 4.688 MLS/HR Lactulose 30 ml DAILY PO 03/14/25 10:00 03/14/25 09:41 30 ML Examination: GENERAL:Abnormal (Critically ill), LUNGS:Abnormal (Endotracheally intubated 100% FiO2), CVS:Abnormal (On dual vasopressor. A-fib/A-flutter controlled rate), NEURO:Abnormal (Chemically sedated) laboratory and microbiology Laboratory Tests 03/15/25 02:18 03/14/25 02:44 Test 03/15/25 02:18 Range/Units Serum Glucose 148 H 74-106 mg/dL Problem List/Assessment/Plan Problem List/Assessment/Plan Septic shock with PNA/Influenza B Acute hypoxic respiratory failure secondary to above Acute on chronic decompensated HFrEF, NYHA class III Paroxysmal atrial fibrillation/atrial flutter, Stage 3A (on Amiodarone at home) Severe coronary artery disease with questionable stent placement Peripheral arterial disease, moderate to severe Ischemic cardiomyopathy Presence of ICD ([employer]tr[employer]) Left ventricular apical thrombus Pulmonary hypertension, severe degree Acute kidney injury with hyperkalemia Elevated LFTs Thyroid disease Dyslipidemia Thrombocytopenia Methamphetamine/tobacco abuse Medical noncompliance Plan/Recommendations (Dr. Gibbs) * Transthoracic echocardiogram reveals EF 15-20% with apical thrombus * Continue vasopressors for hemodynamic support (Quad concentration to prevent fluid overload) * Therapeutic Lovenox (closely monitor platelet count) * [id number] VASc score: 5 points, HAS-BLED score: 2 points * Antiarrhythmic therapy, amiodarone bid (monitor LFTs) * Replete electrolytes as necessary, K>4 and Mg>2 * Single-antiplatelet therapy given hx of possible coronary stent * Lipid-lowering agent Spoke to daughter at bedside. Family has decided for a terminal wean. We will sign off at this time. Kindly call if in need of further care. Thank you for allowing us to care for this patient. Please call with any questions or concerns. Critical care time spent: 30 minutes. This medical document was created using an electronic medical record system with voice recognition software and computerized dictation system. Although this document has been carefully reviewed, there might still be some phonetic and typographical errors. Occasional wrong-word or ``sound-alike substitutions may have occurred due to the inherent limitations of voice recognition software. These areas are purely typographical due to imperfections of the software programs and do not reflect any compromise in the patient's medical care. Please read the chart carefully and recognize, using context, where these substitutions have occurred. Plan discussed with: Daughter, Other Dietary Evaluation Review Comments: 1) Liberalizing to 2gm Na diet 2) Monitor PO intake, lab values, weight trend, and I/O Expected Outcomes/Goals: To meet >75% estimated needs Fu 3-5 days Date of Service: Mar 15, 2025 Billing Provider: LUISITO COATS Cardiology Common Codes: [id number] CARE 30-74 MIN LUISITO COATS Mar 15, 2025 09:40
--- NOTE | 2025-03-15 09:44 | DVHPN2 ---
Progress Note - Dictate Date Seen: Mar 15, 2025 Medical Necessity Reason Pt with a Central, PICC or Fol: Yes The following are medically ne: Central Line, [place] Catheter Subjective Patient is on intubation and sedated. On mechanical ventilation for acute on chronic hypoxic Respiratory Failure. vital signs Vital Sign Date Time Temp Pulse Resp B/P (MAP) Pulse Ox O2 Delivery O2 Flow Rate FiO2 03/15/25 06:45 100 12 105/75 (85) 100 03/15/25 06:13 100 03/15/25 06:00 Mechanical Ventilator+ 03/15/25 04:00 97.6 97.6 Total Intake and Output 03/14/25 03/14/25 03/15/25 15:00 23:00 07:00 Intake Total 186.25 ml 343.376 ml 353.5 ml Output Total 420 ml 800 ml Balance 186.25 ml -76.624 ml -446.5 ml medications Current Medications Medications Dose Ordered Sig/Jose Luis Route Start Time Stop Time Status Last Admin Dose Admin Ondansetron HCl 4 mg Q6HP PRN IV 02/25/25 23:00 02/27/25 17:24 4 MG Pantoprazole Sodium 40 mg DAILY IV 02/26/25 10:00 03/14/25 09:42 40 MG Acetaminophen 650 mg Q6HPRN PRN PO 02/25/25 23:00 03/10/25 20:52 650 MG Lorazepam 1 mg Q6HP PRN PO 02/27/25 16:10 03/03/25 05:19 1 MG Guaifenesin 200 mg Q4HP PRN PO 02/28/25 15:00 03/03/25 05:19 200 MG Albuterol 2.5 mg Q2HPRN PRN NEB 02/28/25 16:00 03/01/25 03:40 2.5 MG Ipratropium [place] 0.5 mg Q2HPRN PRN NEB 02/28/25 16:00 03/01/25 03:40 0.5 MG Aspirin 81 mg DAILY PO 03/02/25 10:00 03/14/25 09:42 81 MG Propofol 100 ml @ 1.854 mls/ hr Q24H IV 03/03/25 16:15 03/13/25 06:54 5.562 MLS/HR Midazolam HCl 50 ml @ 1 mls/hr Q24H IV 03/03/25 16:15 03/15/25 04:56 4 MLS/HR Fentanyl Citrate 250 ml @ 2.5 mls/hr Q24H IV 03/03/25 16:15 03/15/25 04:55 32.5 MLS/HR Vasopressin 20 units/Sodium Chloride 100 ml @ 9 mls/hr Q11H7M IV 03/03/25 17:30 03/15/25 04:56 9 MLS/HR Vancomycin HCl 0 ml @ 0 mls/hr UD IV 03/03/25 18:45 UNV Enteral Nutritional Formula 1,000 ml 30ML/HR GT 03/04/25 14:15 03/12/25 23:02 1,000 ML Metoclopramide HCl 10 mg Q8HR IV 03/05/25 22:00 03/15/25 05:56 10 MG Enoxaparin Sodium 60 mg Q12HR SC 03/06/25 22:00 03/14/25 22:36 60 MG Amiodarone HCl 100 mg Q12HR PO 03/10/25 22:00 03/14/25 22:36 100 MG Atorvastatin Calcium 40 mg HS PO 03/10/25 22:00 03/14/25 22:35 40 MG Albuterol 2.5 mg Q6HWA [facility] 03/10/25 18:00 03/15/25 06:13 2.5 MG Hydrocortisone Sodium Succinate 25 mg BID IV 03/10/25 22:00 03/14/25 22:35 25 MG Quetiapine Fumarate 25 mg QPM PO 03/10/25 18:00 03/14/25 18:22 25 MG Ipratropium [place] 0.5 mg Q6HWA [facility] 03/10/25 18:00 Cancel Ipratropium [place] 0.5 mg Q6HWA [facility] 03/10/25 18:00 03/15/25 06:13 0.5 MG Furosemide 20 mg BIDD IV 03/11/25 18:00 03/15/25 05:58 20 MG Norepinephrine Bitartrate 32 mg/ Sodium Chloride 250 ml @ 0.938 mls/ hr Q24H IV 03/12/25 16:30 03/14/25 18:22 4.688 MLS/HR Lactulose 30 ml DAILY PO 03/14/25 10:00 03/14/25 09:41 30 ML objective General intubated and sedated HEENT: Atraumatic,intubated Neck: No swelling Lungs: Equal air entry and clear to auscultation Cardiovascular: S1 S2 heard no murmur Abdomen: Soft nontender, no organomegaly, nondistended Neuro: unable to assess extremities: purple toes.. poor pheripheral circulation laboratory and microbiology Laboratory Tests 03/15/25 02:18 03/14/25 02:44 Test 03/15/25 02:18 Range/Units Serum Glucose 148 H 74-106 mg/dL Assessment/Plan A 64-year-old female Shock due to cardiogenic versus septic Influenza B pneumonia Acute hypoxic respiratory failure - on Mechanical ventilation thrombocytopenia fluid overload Hepatitis-C antibody positive Congestive heart failure Apical thrombus Severe pulmonary hypertension Methamphetamine abuse Acute kidney injury Noncompliance Tobacco use COPD Recommendations s/p bronch; BAL cultures show normal janet.. DC Cefepime WBC count is elevated at 12.7K Family has showed no intentions of HD as per Nephrology is condition worsens due to grim prognosis poor peripheral circulation has purple toes etc/ Patient has been on prolonged course of antibiotics since admission without clear indication of bacterial infection. Her Hypotension is more related to cardiac she is off Dopamine and Vasopressin. continues to be on nor epi.. ( even that is trending down) she has multiorgan failure due to underlying history of pulmonary hypertension, CHF, meth abuse completed Tamiflu x 5 days total Reviewed all the cultures from the admission until now which are negative except for influenza B Antibiotics history Azithromycin 02/25 until now Ceftriaxone 02/25- 03/03 Linezolid 03/03- now Zosyn: 03/03- 03/10 Cefepime 03/10- 03/14 Tamiflu 03/05- now 03/14 chest X ray revealed : Cardiomegaly, left pleural effusion and multifocal bilateral pulmonary airspace disease remonstrated Multiple subspecialties are on board such as Cardiology, Nephrology Overall prognosis of this patient is very poor Critical time 50 minutes spent during the encounter plan discussed with treatment team Dietary Evaluation Review Comments: 1) Liberalizing to 2gm Na diet 2) Monitor PO intake, lab values, weight trend, and I/O Expected Outcomes/Goals: To meet >75% estimated needs Fu 3-5 days Plan discussed with: ALEJANDRO Mahoney MD Mar 15, 2025 09:44
--- NOTE | 2025-03-15 14:25 | DVHPN2 ---
Progress Note - Dictate Date Seen: Mar 15, 2025 Medical Necessity Reason Pt with a Central, PICC or Fol: Yes The following are medically ne: Central Line, Henriquez Catheter Subjective Sedated comfortable on ventilator. Family and nurse are at bedside. No clinical improvement. Family is contemplating possible compassionate extubation/terminal wean by vital signs Vital Sign Date Time Temp Pulse Resp B/P (MAP) Pulse Ox O2 Delivery O2 Flow Rate FiO2 03/15/25 14:15 94 12 104/76 (85) 100 03/15/25 14:00 100 03/15/25 14:00 Mechanical Ventilator+ 03/15/25 12:00 97.9 97.9 Total Intake and Output 03/14/25 03/14/25 03/15/25 15:00 23:00 07:00 Intake Total 186.25 ml 343.376 ml 403.688 ml Output Total 420 ml 800 ml Balance 186.25 ml -76.624 ml -396.312 ml medications Current Medications Medications Dose Ordered Sig/Jose Luis Route Start Time Stop Time Status Last Admin Dose Admin Ondansetron HCl 4 mg Q6HP PRN IV 02/25/25 23:00 02/27/25 17:24 4 MG Pantoprazole Sodium 40 mg DAILY IV 02/26/25 10:00 03/15/25 09:24 40 MG Acetaminophen 650 mg Q6HPRN PRN PO 02/25/25 23:00 03/10/25 20:52 650 MG Lorazepam 1 mg Q6HP PRN PO 02/27/25 16:10 03/03/25 05:19 1 MG Guaifenesin 200 mg Q4HP PRN PO 02/28/25 15:00 03/03/25 05:19 200 MG Albuterol 2.5 mg Q2HPRN PRN NEB 02/28/25 16:00 03/01/25 03:40 2.5 MG Ipratropium [place] 0.5 mg Q2HPRN PRN NEB 02/28/25 16:00 03/01/25 03:40 0.5 MG Aspirin 81 mg DAILY PO 03/02/25 10:00 03/15/25 09:21 81 MG Propofol 100 ml @ 1.854 mls/ hr Q24H IV 03/03/25 16:15 03/13/25 06:54 5.562 MLS/HR Midazolam HCl 50 ml @ 1 mls/hr Q24H IV 03/03/25 16:15 03/15/25 04:56 4 MLS/HR Fentanyl Citrate 250 ml @ 2.5 mls/hr Q24H IV 03/03/25 16:15 03/15/25 09:28 32.5 MLS/HR Vasopressin 20 units/Sodium Chloride 100 ml @ 9 mls/hr Q11H7M IV 03/03/25 17:30 03/15/25 10:48 9 MLS/HR Vancomycin HCl 0 ml @ 0 mls/hr UD IV 03/03/25 18:45 UNV Enteral Nutritional Formula 1,000 ml 30ML/HR GT 03/04/25 14:15 03/12/25 23:02 1,000 ML Metoclopramide HCl 10 mg Q8HR IV 03/05/25 22:00 03/15/25 05:56 10 MG Enoxaparin Sodium 60 mg Q12HR SC 03/06/25 22:00 03/15/25 09:24 60 MG Atorvastatin Calcium 40 mg HS PO 03/10/25 22:00 03/14/25 22:35 40 MG Albuterol 2.5 mg Q6HWA [facility] 03/10/25 18:00 03/15/25 06:13 2.5 MG Hydrocortisone Sodium Succinate 25 mg BID IV 03/10/25 22:00 03/15/25 09:22 25 MG Quetiapine Fumarate 25 mg QPM PO 03/10/25 18:00 03/14/25 18:22 25 MG Ipratropium [place] 0.5 mg Q6HWA [facility] 03/10/25 18:00 Cancel Ipratropium [place] 0.5 mg Q6HWA [facility] 03/10/25 18:00 03/15/25 06:13 0.5 MG Furosemide 20 mg BIDD IV 03/11/25 18:00 03/15/25 05:58 20 MG Norepinephrine Bitartrate 32 mg/ Sodium Chloride 250 ml @ 0.938 mls/ hr Q24H IV 03/12/25 16:30 03/14/25 18:22 4.688 MLS/HR Lactulose 30 ml DAILY PO 03/14/25 10:00 03/14/25 09:41 30 ML Amiodarone HCl 200 mg Q12HR PO 10/22/25 22:00 objective Family is at bedside. Sedated comfortable on ventilator without distress Oropharynx is clear with a poor dentition. Patient has slight trauma to her lips with the bleeding. Pupils equal round react to light. Heart regular rate and rhythm tachycardia S1 plus S2. Lungs fair air movement without any audible wheezes. Abdomen soft positive bowel sounds. Lower extremities cold to touch at the periphery toe region in both feet. Delayed capillary refill noted. laboratory and microbiology Laboratory Tests 03/15/25 02:18 03/14/25 02:44 Test 03/15/25 02:18 Range/Units Serum Glucose 148 H 74-106 mg/dL Assessment/Plan 1. Acute hypoxic respiratory failure requiring intubation and mechanical ventilation, currently on FiO2 50% with a PEEP of% 2. Abdominal pain, acute cholecystitis has been ruled out 3. Suspected pneumonia, on IV antibiotic 4. Acute on chronic congestive heart failure exacerbation with systolic dysfunction 5. Relative hypotension, currently on vasopressor 5. Chronic meth use 6. Acute kidney injury likely hemodynamically mediated, currently off of diuretics 7. Chronic tobacco use disorder/marijuana use 8. Thrombocytopenia suspect Zosyn induced, DC Zosyn, start cefepime Continue present management as she is on. Once family decides then consider terminal wean versus trach and PEG. Discussed with the nurse. Dietary Evaluation Review Comments: 1) Liberalizing to 2gm Na diet 2) Monitor PO intake, lab values, weight trend, and I/O Expected Outcomes/Goals: To meet >75% estimated needs Fu 3-5 days Plan discussed with: Other MARCOS PAINTING MD Mar 15, 2025 14:25
--- NOTE | 2025-03-15 15:40 | DVHPN2 ---
Progress Note Date Seen: Mar 15, 2025 Medical Necessity Reason Pt with a Central, PICC or Fol: Yes The following are medically ne: Central Line, Henriquez Catheter Subjective Review of Systems: Deferred Objective vital signs Vital Sign Date Time Temp Pulse Resp B/P (MAP) Pulse Ox O2 Delivery O2 Flow Rate FiO2 03/15/25 15:15 114 12 99/69 (79) 100 03/15/25 14:45 100 03/15/25 14:00 Mechanical Ventilator+ 03/15/25 12:00 97.9 97.9 Total Intake and Output 03/14/25 03/14/25 03/15/25 15:00 23:00 07:00 Intake Total 186.25 ml 343.376 ml 403.688 ml Output Total 420 ml 800 ml Balance 186.25 ml -76.624 ml -396.312 ml medications Current Medications Medications Dose Ordered Sig/Jose Luis Route Start Time Stop Time Status Last Admin Dose Admin Ondansetron HCl 4 mg Q6HP PRN IV 02/25/25 23:00 02/27/25 17:24 4 MG Pantoprazole Sodium 40 mg DAILY IV 02/26/25 10:00 03/15/25 09:24 40 MG Acetaminophen 650 mg Q6HPRN PRN PO 02/25/25 23:00 03/10/25 20:52 650 MG Lorazepam 1 mg Q6HP PRN PO 02/27/25 16:10 03/03/25 05:19 1 MG Guaifenesin 200 mg Q4HP PRN PO 02/28/25 15:00 03/03/25 05:19 200 MG Albuterol 2.5 mg Q2HPRN PRN NEB 02/28/25 16:00 03/01/25 03:40 2.5 MG Ipratropium [place] 0.5 mg Q2HPRN PRN NEB 02/28/25 16:00 03/01/25 03:40 0.5 MG Aspirin 81 mg DAILY PO 03/02/25 10:00 03/15/25 09:21 81 MG Propofol 100 ml @ 1.854 mls/ hr Q24H IV 03/03/25 16:15 03/13/25 06:54 5.562 MLS/HR Midazolam HCl 50 ml @ 1 mls/hr Q24H IV 03/03/25 16:15 03/15/25 04:56 4 MLS/HR Fentanyl Citrate 250 ml @ 2.5 mls/hr Q24H IV 03/03/25 16:15 03/15/25 09:28 32.5 MLS/HR Vasopressin 20 units/Sodium Chloride 100 ml @ 9 mls/hr Q11H7M IV 03/03/25 17:30 03/15/25 10:48 9 MLS/HR Vancomycin HCl 0 ml @ 0 mls/hr UD IV 03/03/25 18:45 UNV Enteral Nutritional Formula 1,000 ml 30ML/HR GT 03/04/25 14:15 03/12/25 23:02 1,000 ML Metoclopramide HCl 10 mg Q8HR IV 03/05/25 22:00 03/15/25 05:56 10 MG Enoxaparin Sodium 60 mg Q12HR SC 03/06/25 22:00 03/15/25 09:24 60 MG Atorvastatin Calcium 40 mg HS PO 03/10/25 22:00 03/14/25 22:35 40 MG Albuterol 2.5 mg Q6HWA [facility] 03/10/25 18:00 03/15/25 06:13 2.5 MG Hydrocortisone Sodium Succinate 25 mg BID IV 03/10/25 22:00 03/15/25 09:22 25 MG Quetiapine Fumarate 25 mg QPM PO 03/10/25 18:00 03/14/25 18:22 25 MG Ipratropium [place] 0.5 mg Q6HWA [facility] 03/10/25 18:00 Cancel Ipratropium [place] 0.5 mg Q6HWA [facility] 03/10/25 18:00 03/15/25 06:13 0.5 MG Furosemide 20 mg BIDD IV 03/11/25 18:00 03/15/25 05:58 20 MG Norepinephrine Bitartrate 32 mg/ Sodium Chloride 250 ml @ 0.938 mls/ hr Q24H IV 03/12/25 16:30 03/14/25 18:22 4.688 MLS/HR Lactulose 30 ml DAILY PO 03/14/25 10:00 03/14/25 09:41 30 ML Amiodarone HCl 200 mg Q12HR PO 03/15/25 22:00 Examination: GENERAL:Abnormal, LUNGS:Abnormal, SKIN:Abnormal, NEURO:Abnormal laboratory and microbiology Laboratory Tests 03/15/25 02:18 03/14/25 02:44 Test 03/15/25 02:18 Range/Units Serum Glucose 148 H 74-106 mg/dL Microbiology Date/Time Source Procedure Growth Status 03/12/25 12:35 Bronchial Washings Gram Stain - Final Resulted 03/12/25 12:35 Bronchial Washings Respiratory Culture - Preliminary Resulted 03/05/25 15:00 Nose MRSA Screen - Final Complete 03/03/25 22:09 Urine - Henriquez Port Urine Culture - Final Complete 03/03/25 19:15 Blood Blood Culture - Final NO GROWTH AFTER 5 DAYS OF INCUBATION. Complete Problem List/Assessment/Plan Problem List/Assessment/Plan Acute kidney injury hemodynamically mediated -renal function is worsening due to hypoperfusion and tachycardia currently has increased pressor requirements -clinical evidence of poor vascular perfusion purple toes and digits -discussed at bedside with daughter patient's for renal outcome and high probability of requiring dialysis however daughter has reported that she will not undergo dialysis -acute respiratory failure secondary to pneumonia superimposed septic shock and congestive heart failure Apical thrombus high-risk for pulmonary embolism Pulmonary hypertension Cardiology determine to place patient on anticoagulation without CT testing due to poor renal function Methamphetamine abuse Ejection fraction less than 15% - continue with pressors to maintain mean arterial pressure greater than 65 monitor urinary output cardiology on the case due to tachycardia - HR improved today and BP better from renal standpoint kifdney function stable, no additional recs at this time Grim prognosis likelihood of survival with this hospitalization is minimal family at bedside explained she will not undergo dialysis if she fails Plan discussed with: Other Dietary Evaluation Review Comments: 1) Liberalizing to 2gm Na diet 2) Monitor PO intake, lab values, weight trend, and I/O Expected Outcomes/Goals: To meet >75% estimated needs Fu 3-5 days JUSTICE CHAN MD Mar 15, 2025 15:40
--- NOTE | 2025-03-15 19:05 | DVHPN2 ---
Progress Note - Dictate Date Seen: Mar 15, 2025 Has the PT tested + for MRSA If YES, has PT been informed?: No Medical Necessity Reason Pt with a Central, PICC or Fol: Yes The following are medically ne: Central Line, Henriquez Catheter vital signs Vital Sign Date Time Temp Pulse Resp B/P (MAP) Pulse Ox O2 Delivery O2 Flow Rate FiO2 03/15/25 18:45 100 12 108/74 (85) 100 03/15/25 18:00 Mechanical Ventilator+ 100 100 03/15/25 16:00 98.6 98.6 Total Intake and Output 03/14/25 03/14/25 03/15/25 15:00 23:00 07:00 Intake Total 186.25 ml 343.376 ml 403.688 ml Output Total 420 ml 800 ml Balance 186.25 ml -76.624 ml -396.312 ml medications Current Medications Medications Dose Ordered Sig/Jose Luis Route Start Time Stop Time Status Last Admin Dose Admin Ondansetron HCl 4 mg Q6HP PRN IV 02/25/25 23:00 02/27/25 17:24 4 MG Pantoprazole Sodium 40 mg DAILY IV 02/26/25 10:00 03/15/25 09:24 40 MG Acetaminophen 650 mg Q6HPRN PRN PO 02/25/25 23:00 03/10/25 20:52 650 MG Lorazepam 1 mg Q6HP PRN PO 02/27/25 16:10 03/03/25 05:19 1 MG Guaifenesin 200 mg Q4HP PRN PO 02/28/25 15:00 03/03/25 05:19 200 MG Albuterol 2.5 mg Q2HPRN PRN NEB 02/28/25 16:00 03/01/25 03:40 2.5 MG Ipratropium [place] 0.5 mg Q2HPRN PRN NEB 02/28/25 16:00 03/01/25 03:40 0.5 MG Aspirin 81 mg DAILY PO 03/02/25 10:00 03/15/25 09:21 81 MG Propofol 100 ml @ 1.854 mls/ hr Q24H IV 03/03/25 16:15 03/13/25 06:54 5.562 MLS/HR Midazolam HCl 50 ml @ 1 mls/hr Q24H IV 03/03/25 16:15 03/15/25 16:11 4 MLS/HR Fentanyl Citrate 250 ml @ 2.5 mls/hr Q24H IV 03/03/25 16:15 03/15/25 16:43 32.5 MLS/HR Vasopressin 20 units/Sodium Chloride 100 ml @ 9 mls/hr Q11H7M IV 03/03/25 17:30 03/15/25 10:48 9 MLS/HR Vancomycin HCl 0 ml @ 0 mls/hr UD IV 03/03/25 18:45 UNV Enteral Nutritional Formula 1,000 ml 30ML/HR GT 03/04/25 14:15 03/12/25 23:02 1,000 ML Metoclopramide HCl 10 mg Q8HR IV 03/05/25 22:00 03/15/25 05:56 10 MG Enoxaparin Sodium 60 mg Q12HR SC 03/06/25 22:00 03/15/25 09:24 60 MG Atorvastatin Calcium 40 mg HS PO 03/10/25 22:00 03/14/25 22:35 40 MG Albuterol 2.5 mg Q6HWA [facility] 03/10/25 18:00 03/15/25 18:18 2.5 MG Hydrocortisone Sodium Succinate 25 mg BID IV 03/10/25 22:00 03/15/25 09:22 25 MG Quetiapine Fumarate 25 mg QPM PO 03/10/25 18:00 03/14/25 18:22 25 MG Ipratropium [place] 0.5 mg Q6HWA [facility] 03/10/25 18:00 Cancel Ipratropium [place] 0.5 mg Q6HWA [facility] 03/10/25 18:00 03/15/25 18:18 0.5 MG Furosemide 20 mg BIDD IV 03/11/25 18:00 03/15/25 17:27 20 MG Norepinephrine Bitartrate 32 mg/ Sodium Chloride 250 ml @ 0.938 mls/ hr Q24H IV 03/12/25 16:30 03/15/25 17:26 3.75 MLS/HR Lactulose 30 ml DAILY PO 03/14/25 10:00 03/14/25 09:41 30 ML Amiodarone HCl 200 mg Q12HR PO 03/15/25 22:00 laboratory and microbiology Laboratory Tests 03/15/25 02:18 03/14/25 02:44 Test 03/15/25 02:18 Range/Units Serum Glucose 148 H 74-106 mg/dL Assessment/Plan Patient is seen and examined in the ICU Diagnosis Influenza B Pneumonia Acute hypoxemic respiratory failure Renal failure Metabolic acidosis Patient seen and examined in ICU Events Remains on the ventilator S/p intubation PEEP 10 FiO2 35% S/p bronchoscopy Labs and imaging reviewed Chest x-ray reviewed worse ABG reviewed Management plan Continue vent support adjust to sats 92% sedation as needed antibiotics de-escalate based on cx diurese monitor renal function replace lytes nutrition prognosis poor inview of multiple medical problems advanced cardiomyopathy EF <20 % family aware crit care time 35 minutes Dietary Evaluation Review Comments: 1) Liberalizing to 2gm Na diet 2) Monitor PO intake, lab values, weight trend, and I/O Expected Outcomes/Goals: To meet >75% estimated needs Fu 3-5 days Plan discussed with: Other (rn) EVANS UGARTE MD Mar 15, 2025 19:05
--- NOTE | 2025-03-15 19:16 | DVHPN2 ---
Progress Note Date Seen: Mar 15, 2025 Resident Creating Document: MARY ANN SARAVIA RESIDENT Has the PT tested + for MRSA If YES, has PT been informed?: No Medical Necessity Reason Pt with a Central, PICC or Fol: Yes The following are medically ne: Central Line, Henriquez Catheter Subjective Review of Systems Patient seen and examined at the bedside Sedated on mechanical ventilation H&H stable Regular bowel movements Tolerating feeding well with low gastric residual volumes Objective vital signs Vital Sign Date Time Temp Pulse Resp B/P (MAP) Pulse Ox O2 Delivery O2 Flow Rate FiO2 03/15/25 18:45 100 12 108/74 (85) 100 03/15/25 18:00 Mechanical Ventilator+ 100 100 03/15/25 16:00 98.6 98.6 Total Intake and Output 03/14/25 03/14/25 03/15/25 15:00 23:00 07:00 Intake Total 186.25 ml 343.376 ml 403.688 ml Output Total 420 ml 800 ml Balance 186.25 ml -76.624 ml -396.312 ml medications Current Medications Medications Dose Ordered Sig/Jose Luis Route Start Time Stop Time Status Last Admin Dose Admin Ondansetron HCl 4 mg Q6HP PRN IV 02/25/25 23:00 02/27/25 17:24 4 MG Pantoprazole Sodium 40 mg DAILY IV 02/26/25 10:00 03/15/25 09:24 40 MG Acetaminophen 650 mg Q6HPRN PRN PO 02/25/25 23:00 03/10/25 20:52 650 MG Lorazepam 1 mg Q6HP PRN PO 02/27/25 16:10 03/03/25 05:19 1 MG Guaifenesin 200 mg Q4HP PRN PO 02/28/25 15:00 03/03/25 05:19 200 MG Albuterol 2.5 mg Q2HPRN PRN NEB 02/28/25 16:00 03/01/25 03:40 2.5 MG Ipratropium [place] 0.5 mg Q2HPRN PRN NEB 02/28/25 16:00 03/01/25 03:40 0.5 MG Aspirin 81 mg DAILY PO 03/02/25 10:00 03/15/25 09:21 81 MG Propofol 100 ml @ 1.854 mls/ hr Q24H IV 03/03/25 16:15 03/13/25 06:54 5.562 MLS/HR Midazolam HCl 50 ml @ 1 mls/hr Q24H IV 03/03/25 16:15 03/15/25 16:11 4 MLS/HR Fentanyl Citrate 250 ml @ 2.5 mls/hr Q24H IV 03/03/25 16:15 03/15/25 16:43 32.5 MLS/HR Vasopressin 20 units/Sodium Chloride 100 ml @ 9 mls/hr Q11H7M IV 03/03/25 17:30 03/15/25 10:48 9 MLS/HR Vancomycin HCl 0 ml @ 0 mls/hr UD IV 03/03/25 18:45 UNV Enteral Nutritional Formula 1,000 ml 30ML/HR GT 03/04/25 14:15 03/12/25 23:02 1,000 ML Metoclopramide HCl 10 mg Q8HR IV 03/05/25 22:00 03/15/25 05:56 10 MG Enoxaparin Sodium 60 mg Q12HR SC 03/06/25 22:00 03/15/25 09:24 60 MG Atorvastatin Calcium 40 mg HS PO 03/10/25 22:00 03/14/25 22:35 40 MG Albuterol 2.5 mg Q6HWA [facility] 03/10/25 18:00 03/15/25 18:18 2.5 MG Hydrocortisone Sodium Succinate 25 mg BID IV 03/10/25 22:00 03/15/25 09:22 25 MG Quetiapine Fumarate 25 mg QPM PO 03/10/25 18:00 03/14/25 18:22 25 MG Ipratropium [place] 0.5 mg Q6HWA [facility] 03/10/25 18:00 Cancel Ipratropium [place] 0.5 mg Q6HWA [facility] 03/10/25 18:00 03/15/25 18:18 0.5 MG Furosemide 20 mg BIDD IV 03/11/25 18:00 03/15/25 17:27 20 MG Norepinephrine Bitartrate 32 mg/ Sodium Chloride 250 ml @ 0.938 mls/ hr Q24H IV 03/12/25 16:30 03/15/25 17:26 3.75 MLS/HR Lactulose 30 ml DAILY PO 03/14/25 10:00 03/14/25 09:41 30 ML Amiodarone HCl 200 mg Q12HR PO 03/15/25 22:00 Examination Gen - no pallor, no scleral icterus Skin - Patients skin is warm and dry. HEENT - normocephalic, atraumatic, dry mucous membranes. Neck - supple, no lymphadenopathy Pulmonary - B/L equal air entry with diminished breath sounds in the base cardiovascular - regular S1,S2 heard GI - soft abdomen. Bowel sounds normoactive. Neurological - Patient is sedated and on mechanical ventilation laboratory and microbiology Laboratory Tests 03/15/25 02:18 03/14/25 02:44 Test 03/15/25 02:18 Range/Units Serum Glucose 148 H 74-106 mg/dL Microbiology Date/Time Source Procedure Growth Status 03/12/25 12:35 Bronchial Washings Gram Stain - Final Resulted 03/12/25 12:35 Bronchial Washings Respiratory Culture - Preliminary Resulted 03/05/25 15:00 Nose MRSA Screen - Final Complete 03/03/25 22:09 Urine - [place]quez [place] Urine Culture - Final Complete 03/03/25 19:15 Blood Blood Culture - Final NO GROWTH AFTER 5 DAYS OF INCUBATION. Complete Problem List/Assessment/Plan Problem List/Assessment/Plan Assessment Transaminitis likely due to shock liver, improving Hepatitis-C antibody positive Intractable Abdominal pain Large hiatal hernia methamphetamine use Cholelithiasis, no cholecystitis on HIDA scan TARA on CKD likely due to VMN Suspected pneumonia Plan - LFTs trending down - continue on Protonix - lactulose 30 mL daily, continue on Reglan - continue on tube feedings We will sign off from the case Thank you for consulting GI. Please recall as needed Plan discussed with Dr. Aguila Plan discussed with: Other (RN) Dietary Evaluation Review Comments: 1) Liberalizing to 2gm Na diet 2) Monitor PO intake, lab values, weight trend, and I/O Expected Outcomes/Goals: To meet >75% estimated needs Fu 3-5 days MARY ANN SARAVIA RESIDENT Mar 15, 2025 19:16
[2025-03-15] MEDS: AMIODARONE HCL 200 MG TAB PO SCH (22:24)
[2025-03-16] VITALS (109 sets, daily range): BP systolic 89–131; BP diastolic 59–94; PULSE 89–117; RESP 11–20; TEMP 97–99.2; O2SAT 87–100
[2025-03-16 03:07] LABS: Hematocrit 27.7 % (36.0-46.0); Hemoglobin 8.7 g/dL (12.2-16.2); Mean Corpuscular Hemoglobin 26.3 pg (28.0-32.0); Mean Corpuscular Volume 83.6 fL (80.0-100.0); Nucleated Red Blood Cells % 0.2 %
[2025-03-16 03:17] LABS: Anion Gap 9 (5-15); Chloride 105 mmol/L (98-107); Potassium 4.3 mmol/L (3.5-5.1)
[2025-03-16 03:23] LABS: BUN/Creatinine Ratio 39.6 (10.0-20.0)
[2025-03-16 03:24] LABS: Magnesium 2.4 mg/dL (1.6-2.6)
[2025-03-16 03:43] LABS: Blood Urea Nitrogen 53 mg/dL (9-23); Calcium 8.5 mg/dL (8.7-10.4); Carbon Dioxide 33 mmol/L (20-31); Glucose 115 mg/dL (74-106); Sodium 147 mmol/L (136-145)
--- NOTE | 2025-03-16 06:00 | DVH ---
CHEST RADIOGRAPH Indication: ventilator Technique: Single frontal view of the chest was obtained COMPARISON: XY CHEST XRAY 1 VIEW on DOS: 03/14/25, XY CHEST PORTABLE on DOS: 03/13/25, XY CHEST SAVANNAH BLE on DOS: 03/12/25, XY CHEST PORTABLE on DOS: 03/11/25, XY CHEST PORTABLE on DOS: 03/10/25 FINDINGS: Lines and Tubes: Unchanged. Lungs: Stable appearing small left pleural effusion and patchy bilateral perihilar and bibasilar pulm onary airspace disease. No pneumothorax. Cardiomediastinal contours: Cardiomegaly. Bones: Unremarkable IMPRESSION: 1. Stable small left pleural effusion and patchy bilateral perihilar and bibasilar pulmonary airspace disease. 2. Lines and tubes unchanged.
[2025-03-16 09:13] LABS: Base Excess 5.9 mmol/L (-2.0-3.0)
--- NOTE | 2025-03-16 11:19 | DVHPN2 ---
Progress Note - Dictate Date Seen: Mar 16, 2025 Has the PT tested + for MRSA If YES, has PT been informed?: No Medical Necessity Reason Pt with a Central, PICC or Fol: Yes The following are medically ne: Central Line, Henriquez Catheter Subjective Patient is on intubation and sedated. On mechanical ventilation for acute on chronic hypoxic Respiratory Failure. vital signs Vital Sign Date Time Temp Pulse Resp B/P (MAP) Pulse Ox O2 Delivery O2 Flow Rate FiO2 03/16/25 10:14 102/63 03/16/25 10:13 105 15 99 50 03/16/25 06:00 Mechanical Ventilator+ 03/16/25 04:00 98.4 98.4 Total Intake and Output 03/15/25 03/15/25 03/16/25 15:00 23:00 07:00 Intake Total 399.628 ml 425.00 ml 589.50 ml Output Total 500 ml 600 ml Balance 399.628 ml -75.00 ml -10.50 ml medications Current Medications Medications Dose Ordered Sig/Jose Luis Route Start Time Stop Time Status Last Admin Dose Admin Ondansetron HCl 4 mg Q6HP PRN IV 02/25/25 23:00 02/27/25 17:24 4 MG Pantoprazole Sodium 40 mg DAILY IV 02/26/25 10:00 03/15/25 09:24 40 MG Acetaminophen 650 mg Q6HPRN PRN PO 02/25/25 23:00 03/10/25 20:52 650 MG Lorazepam 1 mg Q6HP PRN PO 02/27/25 16:10 03/03/25 05:19 1 MG Guaifenesin 200 mg Q4HP PRN PO 02/28/25 15:00 03/03/25 05:19 200 MG Albuterol 2.5 mg Q2HPRN PRN NEB 02/28/25 16:00 03/01/25 03:40 2.5 MG Ipratropium [place] 0.5 mg Q2HPRN PRN NEB 02/28/25 16:00 03/01/25 03:40 0.5 MG Aspirin 81 mg DAILY PO 03/02/25 10:00 03/15/25 09:21 81 MG Propofol 100 ml @ 1.854 mls/ hr Q24H IV 03/03/25 16:15 03/13/25 06:54 5.562 MLS/HR Midazolam HCl 50 ml @ 1 mls/hr Q24H IV 03/03/25 16:15 03/16/25 04:20 4 MLS/HR Fentanyl Citrate 250 ml @ 2.5 mls/hr Q24H IV 03/03/25 16:15 03/16/25 08:01 32.5 MLS/HR Vasopressin 20 units/Sodium Chloride 100 ml @ 9 mls/hr Q11H7M IV 03/03/25 17:30 03/16/25 10:14 9 MLS/HR Vancomycin HCl 0 ml @ 0 mls/hr UD IV 03/03/25 18:45 UNV Enteral Nutritional Formula 1,000 ml 30ML/HR GT 03/04/25 14:15 03/12/25 23:02 1,000 ML Metoclopramide HCl 10 mg Q8HR IV 03/05/25 22:00 03/16/25 05:48 10 MG Enoxaparin Sodium 60 mg Q12HR SC 03/06/25 22:00 03/15/25 22:24 60 MG Atorvastatin Calcium 40 mg HS PO 03/10/25 22:00 03/15/25 22:23 40 MG Albuterol 2.5 mg Q6HWA [facility] 03/10/25 18:00 03/16/25 06:47 2.5 MG Hydrocortisone Sodium Succinate 25 mg BID IV 03/10/25 22:00 03/15/25 22:22 25 MG Quetiapine Fumarate 25 mg QPM PO 03/10/25 18:00 03/14/25 18:22 25 MG Ipratropium [place] 0.5 mg Q6HWA [facility] 03/10/25 18:00 Cancel Ipratropium [place] 0.5 mg Q6HWA [facility] 03/10/25 18:00 03/16/25 06:47 0.5 MG Furosemide 20 mg BIDD IV 03/11/25 18:00 03/16/25 05:47 20 MG Norepinephrine Bitartrate 32 mg/ Sodium Chloride 250 ml @ 0.938 mls/ hr Q24H IV 03/12/25 16:30 03/15/25 17:26 3.75 MLS/HR Lactulose 30 ml DAILY PO 03/14/25 10:00 03/14/25 09:41 30 ML Amiodarone HCl 200 mg Q12HR PO 03/15/25 22:00 03/15/25 22:24 200 MG objective General intubated and sedated HEENT: Atraumatic,intubated Neck: No swelling Lungs: Equal air entry and clear to auscultation Cardiovascular: S1 S2 heard no murmur Abdomen: Soft nontender, no organomegaly, nondistended Neuro: unable to assess extremities: purple toes.. poor pheripheral circulation laboratory and microbiology Laboratory Tests 03/16/25 02:45 Test 03/16/25 02:45 Range/Units Serum Glucose 115 H 74-106 mg/dL Assessment/Plan A 64-year-old female Shock due to cardiogenic versus septic Influenza B pneumonia Acute hypoxic respiratory failure - on Mechanical ventilation thrombocytopenia fluid overload Hepatitis-C antibody positive Congestive heart failure Apical thrombus Severe pulmonary hypertension Methamphetamine abuse Acute kidney injury Noncompliance Tobacco use COPD Recommendations s/p bronch; BAL cultures show normal janet.. DC Cefepime WBC count is with in normal range Family has showed no intentions of HD as per Nephrology is condition worsens due to grim prognosis poor peripheral circulation has purple toes etc/ Patient has been on prolonged course of antibiotics since admission without clear indication of bacterial infection. Her Hypotension is more related to cardiac she is off Dopamine and Vasopressin. continues to be on nor epi.. ( even that is trending down) she has multiorgan failure due to underlying history of pulmonary hypertension, CHF, meth abuse completed Tamiflu x 5 days total Reviewed all the cultures from the admission until now which are negative except for influenza B Antibiotics history Azithromycin 02/25 until now Ceftriaxone 02/25- 03/03 Linezolid 03/03- now Zosyn: 03/03- 03/10 Cefepime 03/10- 03/14 Tamiflu 03/05- now 03/14 chest X ray revealed : Cardiomegaly, left pleural effusion and multifocal bilateral pulmonary airspace disease remonstrated 03/16 chest x ray revealed : Stable small pleural effusion and bibasilar pulmonary airspace disease Multiple subspecialties are on board such as Cardiology, Nephrology Overall prognosis of this patient is very poor, possible plan for compassionate extubation total time 50 minutes spent during the encounter plan discussed with treatment team Dietary Evaluation Review Comments: 1) Liberalizing to 2gm Na diet 2) Monitor PO intake, lab values, weight trend, and I/O Expected Outcomes/Goals: To meet >75% estimated needs Fu 3-5 days Plan discussed with: Other ALEJANDRO DOUGHERTY MD Mar 16, 2025 11:19
[2025-03-16 12:39] LABS: Base Excess 6.0 mmol/L (-2.0-3.0)
--- NOTE | 2025-03-16 14:30 | DVHPN2 ---
Progress Note Date Seen: Mar 16, 2025 Has the PT tested + for MRSA If YES, has PT been informed?: No Medical Necessity Reason Pt with a Central, PICC or Fol: Yes The following are medically ne: Central Line, Henriquez Catheter Subjective Review of Systems: Deferred Objective vital signs Vital Sign Date Time Temp Pulse Resp B/P (MAP) Pulse Ox O2 Delivery O2 Flow Rate FiO2 03/16/25 12:00 40 03/16/25 10:14 102/63 03/16/25 10:13 105 15 99 03/16/25 08:00 Mechanical Ventilator+ 03/16/25 04:00 98.4 98.4 Total Intake and Output 03/15/25 03/15/25 03/16/25 15:00 23:00 07:00 Intake Total 399.628 ml 425.00 ml 589.50 ml Output Total 500 ml 600 ml Balance 399.628 ml -75.00 ml -10.50 ml medications Current Medications Medications Dose Ordered Sig/Jose Luis Route Start Time Stop Time Status Last Admin Dose Admin Ondansetron HCl 4 mg Q6HP PRN IV 02/25/25 23:00 02/27/25 17:24 4 MG Pantoprazole Sodium 40 mg DAILY IV 02/26/25 10:00 03/16/25 11:33 40 MG Acetaminophen 650 mg Q6HPRN PRN PO 02/25/25 23:00 03/10/25 20:52 650 MG Lorazepam 1 mg Q6HP PRN PO 02/27/25 16:10 03/03/25 05:19 1 MG Guaifenesin 200 mg Q4HP PRN PO 02/28/25 15:00 03/03/25 05:19 200 MG Albuterol 2.5 mg Q2HPRN PRN NEB 02/28/25 16:00 03/01/25 03:40 2.5 MG Ipratropium [place] 0.5 mg Q2HPRN PRN NEB 02/28/25 16:00 03/01/25 03:40 0.5 MG Aspirin 81 mg DAILY PO 03/02/25 10:00 03/16/25 11:34 81 MG Propofol 100 ml @ 1.854 mls/ hr Q24H IV 03/03/25 16:15 03/13/25 06:54 5.562 MLS/HR Midazolam HCl 50 ml @ 1 mls/hr Q24H IV 03/03/25 16:15 03/16/25 04:20 4 MLS/HR Fentanyl Citrate 250 ml @ 2.5 mls/hr Q24H IV 03/03/25 16:15 03/16/25 08:01 32.5 MLS/HR Vasopressin 20 units/Sodium Chloride 100 ml @ 9 mls/hr Q11H7M IV 03/03/25 17:30 03/16/25 10:14 9 MLS/HR Vancomycin HCl 0 ml @ 0 mls/hr UD IV 03/03/25 18:45 UNV Enteral Nutritional Formula 1,000 ml 30ML/HR GT 03/04/25 14:15 03/12/25 23:02 1,000 ML Metoclopramide HCl 10 mg Q8HR IV 03/05/25 22:00 03/16/25 05:48 10 MG Enoxaparin Sodium 60 mg Q12HR SC 03/06/25 22:00 03/16/25 11:34 60 MG Atorvastatin Calcium 40 mg HS PO 03/10/25 22:00 03/15/25 22:23 40 MG Albuterol 2.5 mg Q6HWA [facility] 03/10/25 18:00 03/16/25 11:55 2.5 MG Hydrocortisone Sodium Succinate 25 mg BID IV 03/10/25 22:00 03/16/25 11:33 25 MG Quetiapine Fumarate 25 mg QPM PO 03/10/25 18:00 03/14/25 18:22 25 MG Ipratropium [place] 0.5 mg Q6HWA [facility] 03/10/25 18:00 Cancel Ipratropium [place] 0.5 mg Q6HWA [facility] 03/10/25 18:00 03/16/25 11:55 0.5 MG Furosemide 20 mg BIDD IV 03/11/25 18:00 03/16/25 05:47 20 MG Norepinephrine Bitartrate 32 mg/ Sodium Chloride 250 ml @ 0.938 mls/ hr Q24H IV 03/12/25 16:30 03/15/25 17:26 3.75 MLS/HR Lactulose 30 ml DAILY PO 03/14/25 10:00 03/14/25 09:41 30 ML Amiodarone HCl 200 mg Q12HR PO 03/15/25 22:00 03/16/25 11:33 200 MG Examination: GENERAL:Abnormal, LUNGS:Abnormal, ABDOMEN:Normal, SKIN:Abnormal laboratory and microbiology Laboratory Tests 03/16/25 02:45 Test 03/16/25 02:45 Range/Units Serum Glucose 115 H 74-106 mg/dL Microbiology Date/Time Source Procedure Growth Status 03/12/25 12:35 Bronchial Washings Gram Stain - Final Complete 03/12/25 12:35 Respiratory Culture - Final Presumptive Lenora albicans Complete 03/05/25 15:00 Nose MRSA Screen - Final Complete 03/03/25 22:09 Urine - [place] Urine Culture - Final Complete 03/03/25 19:15 Blood Blood Culture - Final NO GROWTH AFTER 5 DAYS OF INCUBATION. Complete Problem List/Assessment/Plan Problem List/Assessment/Plan Acute kidney injury hemodynamically mediated -renal function is worsening due to hypoperfusion and tachycardia currently has increased pressor requirements -clinical evidence of poor vascular perfusion purple toes and digits -discussed at bedside with daughter patient's for renal outcome and high probability of requiring dialysis however daughter has reported that she will not undergo dialysis -acute respiratory failure secondary to pneumonia superimposed septic shock and congestive heart failure Apical thrombus high-risk for pulmonary embolism Pulmonary hypertension Cardiology determine to place patient on anticoagulation without CT testing due to poor renal function Methamphetamine abuse Ejection fraction less than 15% - continue with pressors to maintain mean arterial pressure greater than 65 monitor urinary output cardiology on the case due to tachycardia - HR improved today and BP better from renal standpoint kifdney function stable, no additional recs at this time. Will sign off Grim prognosis likelihood of survival with this hospitalization is minimal family at bedside explained she will not undergo dialysis if she fails Plan discussed with: Daughter Dietary Evaluation Review Comments: 1) Liberalizing to 2gm Na diet 2) Monitor PO intake, lab values, weight trend, and I/O Expected Outcomes/Goals: To meet >75% estimated needs Fu 3-5 days JUSTICE CHAN MD Mar 16, 2025 14:30
--- NOTE | 2025-03-16 15:11 | DVHPN2 ---
Progress Note - Dictate Date Seen: Mar 16, 2025 Has the PT tested + for MRSA If YES, has PT been informed?: No Medical Necessity Reason Pt with a Central, PICC or Fol: Yes The following are medically ne: Central Line, Henriquez Catheter Subjective Family is requesting to sign FMLA leave papers. Sedated comfortable on ventilator. No clinical improvement. Family is contemplating possible compassionate extubation/terminal wean by weekend vital signs Vital Sign Date Time Temp Pulse Resp B/P (MAP) Pulse Ox O2 Delivery O2 Flow Rate FiO2 03/16/25 14:53 116 16 104/74 (84) 98 40 03/16/25 08:00 Mechanical Ventilator+ 03/16/25 04:00 98.4 98.4 Total Intake and Output 03/15/25 03/15/25 03/16/25 15:00 23:00 07:00 Intake Total 399.628 ml 425.00 ml 589.50 ml Output Total 500 ml 600 ml Balance 399.628 ml -75.00 ml -10.50 ml medications Current Medications Medications Dose Ordered Sig/Jose Luis Route Start Time Stop Time Status Last Admin Dose Admin Ondansetron HCl 4 mg Q6HP PRN IV 02/25/25 23:00 02/27/25 17:24 4 MG Pantoprazole Sodium 40 mg DAILY IV 02/26/25 10:00 03/16/25 11:33 40 MG Acetaminophen 650 mg Q6HPRN PRN PO 02/25/25 23:00 03/10/25 20:52 650 MG Lorazepam 1 mg Q6HP PRN PO 02/27/25 16:10 03/03/25 05:19 1 MG Guaifenesin 200 mg Q4HP PRN PO 02/28/25 15:00 03/03/25 05:19 200 MG Albuterol 2.5 mg Q2HPRN PRN NEB 02/28/25 16:00 03/01/25 03:40 2.5 MG Ipratropium [place] 0.5 mg Q2HPRN PRN NEB 02/28/25 16:00 03/01/25 03:40 0.5 MG Aspirin 81 mg DAILY PO 03/02/25 10:00 03/16/25 11:34 81 MG Propofol 100 ml @ 1.854 mls/ hr Q24H IV 03/03/25 16:15 03/13/25 06:54 5.562 MLS/HR Midazolam HCl 50 ml @ 1 mls/hr Q24H IV 03/03/25 16:15 03/16/25 04:20 4 MLS/HR Fentanyl Citrate 250 ml @ 2.5 mls/hr Q24H IV 03/03/25 16:15 03/16/25 08:01 32.5 MLS/HR Vasopressin 20 units/Sodium Chloride 100 ml @ 9 mls/hr Q11H7M IV 03/03/25 17:30 03/16/25 10:14 9 MLS/HR Vancomycin HCl 0 ml @ 0 mls/hr UD IV 03/03/25 18:45 UNV Enteral Nutritional Formula 1,000 ml 30ML/HR GT 03/04/25 14:15 03/12/25 23:02 1,000 ML Metoclopramide HCl 10 mg Q8HR IV 03/05/25 22:00 03/16/25 05:48 10 MG Enoxaparin Sodium 60 mg Q12HR SC 03/06/25 22:00 03/16/25 11:34 60 MG Atorvastatin Calcium 40 mg HS PO 03/10/25 22:00 03/15/25 22:23 40 MG Albuterol 2.5 mg Q6HWA [facility] 03/10/25 18:00 03/16/25 11:55 2.5 MG Hydrocortisone Sodium Succinate 25 mg BID IV 03/10/25 22:00 03/16/25 11:33 25 MG Quetiapine Fumarate 25 mg QPM PO 03/10/25 18:00 03/14/25 18:22 25 MG Ipratropium [place] 0.5 mg Q6HWA NEB 03/10/25 18:00 Cancel Ipratropium [place] 0.5 mg Q6HWA NEB 03/10/25 18:00 03/16/25 11:55 0.5 MG Furosemide 20 mg BIDD IV 03/11/25 18:00 03/16/25 05:47 20 MG Norepinephrine Bitartrate 32 mg/ Sodium Chloride 250 ml @ 0.938 mls/ hr Q24H IV 03/12/25 16:30 03/15/25 17:26 3.75 MLS/HR Lactulose 30 ml DAILY PO 03/14/25 10:00 03/14/25 09:41 30 ML Amiodarone HCl 200 mg Q12HR PO 03/15/25 22:00 03/16/25 11:33 200 MG objective Sedated comfortable on ventilator without distress Oropharynx is clear with a poor dentition. Patient has slight trauma to her lips with the bleeding. Pupils equal round react to light. Heart regular rate and rhythm tachycardia S1 plus S2. Lungs fair air movement without any audible wheezes. Abdomen soft positive bowel sounds. Lower extremities cold to touch at the periphery toe region in both feet. Delayed capillary refill noted. laboratory and microbiology Laboratory Tests 03/16/25 02:45 Test 03/16/25 02:45 Range/Units Serum Glucose 115 H 74-106 mg/dL Assessment/Plan 1. Acute hypoxic respiratory failure requiring intubation and mechanical ventilation, currently on FiO2 50% with a PEEP of% 2. Abdominal pain, acute cholecystitis has been ruled out 3. Suspected pneumonia, on IV antibiotic 4. Acute on chronic congestive heart failure exacerbation with systolic dysfunction 5. Relative hypotension, currently on vasopressor 5. Chronic meth use 6. Acute kidney injury likely hemodynamically mediated, currently off of diuretics 7. Chronic tobacco use disorder/marijuana use 8. Thrombocytopenia suspect Zosyn induced, DC Zosyn, start cefepime Continue present management as she is on. FMLA papers signed and given to the nurse. We will order head CT today given a no neurological improvement. Patient noted to be hypercarbic on the ABG therefore we will increase respiratory rate on the vent. Overall prognosis remains poor. Discussed with the nurse at bedside. Dietary Evaluation Review Comments: 1) Liberalizing to 2gm Na diet 2) Monitor PO intake, lab values, weight trend, and I/O Expected Outcomes/Goals: To meet >75% estimated needs Fu 3-5 days Plan discussed with: Other MARCOS PAINTING MD Mar 16, 2025 15:11
[2025-03-16] MEDS: MIDAZOLAM DRIP 100 mg/100mL NS 100 ML IV SCH (18:00)
--- NOTE | 2025-03-16 20:42 | DVHPN2 ---
Progress Note - Dictate Date Seen: Mar 16, 2025 Has the PT tested + for MRSA If YES, has PT been informed?: No Medical Necessity Reason Pt with a Central, PICC or Fol: Yes The following are medically ne: Central Line, [place]quez Catheter Subjective Patient seen and examined at bedside. Sedated, intubated on mechanical ventilator. Overnight events reviewed. vital signs Vital Sign Date Time Temp Pulse Resp B/P (MAP) Pulse Ox O2 Delivery O2 Flow Rate FiO2 03/16/25 20:24 104 15 103/71 (82) 98 40 03/16/25 18:00 Mechanical Ventilator+ 03/16/25 16:00 97.4 97.4 Total Intake and Output 03/15/25 03/15/25 03/16/25 15:00 23:00 07:00 Intake Total 399.628 ml 425.00 ml 638.75 ml Output Total 500 ml 600 ml Balance 399.628 ml -75.00 ml 38.75 ml medications Current Medications Medications Dose Ordered Sig/Jose Luis Route Start Time Stop Time Status Last Admin Dose Admin Ondansetron HCl 4 mg Q6HP PRN IV 02/25/25 23:00 02/27/25 17:24 4 MG Pantoprazole Sodium 40 mg DAILY IV 02/26/25 10:00 03/16/25 11:33 40 MG Acetaminophen 650 mg Q6HPRN PRN PO 02/25/25 23:00 03/10/25 20:52 650 MG Lorazepam 1 mg Q6HP PRN PO 02/27/25 16:10 03/03/25 05:19 1 MG Guaifenesin 200 mg Q4HP PRN PO 02/28/25 15:00 03/03/25 05:19 200 MG Albuterol 2.5 mg Q2HPRN PRN NEB 02/28/25 16:00 03/01/25 03:40 2.5 MG Ipratropium [place] 0.5 mg Q2HPRN PRN NEB 02/28/25 16:00 03/01/25 03:40 0.5 MG Aspirin 81 mg DAILY PO 03/02/25 10:00 03/16/25 11:34 81 MG Propofol 100 ml @ 1.854 mls/ hr Q24H IV 03/03/25 16:15 03/13/25 06:54 5.562 MLS/HR Fentanyl Citrate 250 ml @ 2.5 mls/hr Q24H IV 03/03/25 16:15 03/16/25 15:11 32.5 MLS/HR Vasopressin 20 units/Sodium Chloride 100 ml @ 9 mls/hr Q11H7M IV 03/03/25 17:30 03/16/25 10:14 9 MLS/HR Vancomycin HCl 0 ml @ 0 mls/hr UD IV 03/03/25 18:45 UNV Enteral Nutritional Formula 1,000 ml 30ML/HR GT 03/04/25 14:15 03/12/25 23:02 1,000 ML Metoclopramide HCl 10 mg Q8HR IV 03/05/25 22:00 03/16/25 05:48 10 MG Enoxaparin Sodium 60 mg Q12HR SC 03/06/25 22:00 03/16/25 11:34 60 MG Atorvastatin Calcium 40 mg HS PO 03/10/25 22:00 03/15/25 22:23 40 MG Albuterol 2.5 mg Q6HWA [facility] 03/10/25 18:00 03/16/25 18:25 2.5 MG Hydrocortisone Sodium Succinate 25 mg BID IV 03/10/25 22:00 03/16/25 11:33 25 MG Quetiapine Fumarate 25 mg QPM PO 03/10/25 18:00 03/14/25 18:22 25 MG Ipratropium [place] 0.5 mg Q6HWA [facility] 03/10/25 18:00 Cancel Ipratropium [place] 0.5 mg Q6HWA [facility] 03/10/25 18:00 03/16/25 18:25 0.5 MG Furosemide 20 mg BIDD IV 03/11/25 18:00 03/16/25 17:32 20 MG Norepinephrine Bitartrate 32 mg/ Sodium Chloride 250 ml @ 0.938 mls/ hr Q24H IV 03/12/25 16:30 03/16/25 17:33 3.75 MLS/HR Lactulose 30 ml DAILY PO 03/14/25 10:00 03/14/25 09:41 30 ML Amiodarone HCl 200 mg Q12HR PO 03/15/25 22:00 03/16/25 11:33 200 MG Midazolam HCl 100 ml @ 1 mls/hr Q24H IV 03/16/25 18:00 objective Gen.: Patient lying in bed in medical ICU. Sedated, intubated on mechanical ventilator. Head: Normocephalic, atraumatic. Eyes: PERRLA. Ears: Normal external anatomy. Throat: Endotracheal tube and orogastric tube in place. Neck: Supple, trachea midline. Chest: Transmitted breath sounds bilaterally. Decreased air entry bilaterally. No wheezing. Bibasilar crackles. Cardiovascular: Positive S1, positive S2. Regular rate and rhythm. Abdomen: Positive bowel sounds in all 4 quadrants. Soft, nontender, nondistended. : Henriquez in place. Normal external genitalia. Rectal: Deferred. Skin: Warm, dry. Intact. Extremities: 2+ radial pulses bilaterally. No lower extremity edema. Neuro: Sedated. laboratory and microbiology Laboratory Tests 03/16/25 02:45 Test 03/16/25 02:45 Range/Units Serum Glucose 115 H 74-106 mg/dL Assessment/Plan Impression: Acute hypoxic respiratory failure On mechanical ventilator Influenza B Pneumonia d/t influenza B Metabolic acidosis Anemia Amphetamine dependence Renal failure Obesity, BMI 32.6 Plan: s/p intubation on mechanical ventilator. CXR image and report reviewed. Devices in place. Stable small left pleural effusion and patchy bilateral perihilar and bibasilar pulmonary airspace disease . ABG reviewed, shows acidemia due to CO2 retention. On AC mode; RR 14, VT 350, PEEP 10, FiO2 40% Titrate FIO2 to keep O2 saturation above 90%. VAP bundle. Daily ABG and CXR while intubated Sedate for ventilator synchrony - on Versed, Fentanyl. Continue bronchodilators. IV steroids Pressors for hemodynamic support Levophed 8 mcg/min and vasopressin 0.03 units/min Titrate to keep mean arterial pressure greater than 65 mmHg. Monitor renal function Monitor electrolytes. Supplement as necessary. Monitor ins and outs. Maintain euvolemia Monitor hemoglobin d/t anemia Transfuse if less than 7.0 g/dL. Recommend diet and lifestyle modifications for weight reduction Obesity complicates all care GI prophylaxis. DVT prophylaxis. Prognosis: Poor given patient's multiple co-morbidities. Condition: Critical Rest of plan per hospitalist and other consultants. A total of 35 minutes of critical care time was spent reviewing the patient record, examining the patient, making a diagnostic and therapeutic plan, discussing this plan with the medical personnel, following up on diagnostic studies and following the patient for clinical stability excluding any and all procedures. At least 50% of this time was spent in direct, [id number] contact. Thank you, LAKESHIA Rodriguez, for allowing me to participate in this patient's care. Further recommendations will depend on the patient's clinical course. Please do not hesitate to contact me if you have any questions or concerns. This medical document was created using an electronic medical record system with [employer] dictation system. Although these documentations are being carefully reviewed, there may still be some phonetic and typographical changes. The errors are purely typographical, due to imperfection on the software program, and do not reflect any compromise in the patient's medical care. Dietary Evaluation Review Comments: 1) Liberalizing to 2gm Na diet 2) Monitor PO intake, lab values, weight trend, and I/O Expected Outcomes/Goals: To meet >75% estimated needs Fu 3-5 days Plan discussed with: Other (ROSANNA Matias) Critical Care Time(min): 35 NATHALIE DONALDSON [facility] Mar 16, 2025 20:42
[2025-03-17] VITALS (105 sets, daily range): BP systolic 82–123; BP diastolic 59–82; PULSE 79–121; RESP 10–22; TEMP 97.1–98.6; O2SAT 89–100
[2025-03-17 04:17] LABS: Hematocrit 24.0 % (36.0-46.0); Hemoglobin 7.6 g/dL (12.2-16.2); Mean Corpuscular Hemoglobin 26.3 pg (28.0-32.0); Mean Corpuscular Volume 83.9 fL (80.0-100.0); Nucleated Red Blood Cells % 0.4 %
[2025-03-17 04:45] LABS: Alkaline Phosphatase 69 U/L (46-116); Anion Gap 8 (5-15); BUN/Creatinine Ratio 40.6 (10.0-20.0); Chloride 105 mmol/L (98-107); Potassium 3.9 mmol/L (3.5-5.1)
[2025-03-17 04:47] LABS: Bilirubin, Total 0.6 mg/dL (0.2-1.0)
[2025-03-17 04:53] LABS: Alanine Aminotransferase 48 U/L (7-40); Albumin 2.8 g/dL (3.2-4.8); Blood Urea Nitrogen 56 mg/dL (9-23); Calcium 8.3 mg/dL (8.7-10.4); Carbon Dioxide 34 mmol/L (20-31); Glucose 136 mg/dL (74-106); Sodium 147 mmol/L (136-145); Total Protein 5.3 g/dL (5.7-8.2)
[2025-03-17 06:47] LABS: Base Excess 4.7 mmol/L (-2.0-3.0)
--- NOTE | 2025-03-17 08:46 | DVH ---
INDICATION: Intubated TECHNIQUE: Single frontal view of the chest was obtained COMPARISON: XY CHEST PORTABLE on DOS: 03/16/25, XY CHEST XRAY 1 VIEW on DOS: 03/14/25, XY CHEST SAVANNAH BLE on DOS: 03/13/25, XY CHEST PORTABLE on DOS: 03/12/25, XY CHEST PORTABLE on DOS: 03/11/25, XY CHES T PORTABLE on DOS: 03/16/25 FINDINGS: Lines and Tubes: Unchanged. Lungs: Stable appearing small left pleural effusion and patchy bilateral perihilar and bibasilar pulm onary airspace disease. No pneumothorax. Cardiomediastinal contours: Cardiomegaly. Bones: Unremarkable IMPRESSION: 1. Stable small left pleural effusion and patchy bilateral perihilar and bibasilar pulmonary airspace disease. 2. Lines and tubes unchanged.
--- NOTE | 2025-03-17 11:51 | DVHPN2 ---
Progress Note - Dictate Date Seen: Mar 17, 2025 Has the PT tested + for MRSA If YES, has PT been informed?: No Medical Necessity Reason Pt with a Central, PICC or Fol: Yes The following are medically ne: Central Line, Henriquez Catheter Subjective Patient is on intubation and sedated. On mechanical ventilation for acute on chronic hypoxic Respiratory Failure. possible plan to wean tomorrow as per team vital signs Vital Sign Date Time Temp Pulse Resp B/P (MAP) Pulse Ox O2 Delivery O2 Flow Rate FiO2 03/17/25 11:32 88 17 96/64 (75) 100 50 03/17/25 10:00 Mechanical Ventilator+ 03/17/25 08:30 98.1 98.1 Total Intake and Output 03/16/25 03/16/25 03/17/25 15:00 23:00 07:00 Intake Total 394.00 ml 663.626 ml 667.004 ml Output Total 500 ml 600 ml Balance 394.00 ml 163.626 ml 67.004 ml medications Current Medications Medications Dose Ordered Sig/Jose Luis Route Start Time Stop Time Status Last Admin Dose Admin Ondansetron HCl 4 mg Q6HP PRN IV 02/25/25 23:00 02/27/25 17:24 4 MG Pantoprazole Sodium 40 mg DAILY IV 02/26/25 10:00 03/17/25 10:02 40 MG Acetaminophen 650 mg Q6HPRN PRN PO 02/25/25 23:00 03/10/25 20:52 650 MG Lorazepam 1 mg Q6HP PRN PO 02/27/25 16:10 03/03/25 05:19 1 MG Guaifenesin 200 mg Q4HP PRN PO 02/28/25 15:00 03/03/25 05:19 200 MG Albuterol 2.5 mg Q2HPRN PRN NEB 02/28/25 16:00 03/01/25 03:40 2.5 MG Ipratropium [place] 0.5 mg Q2HPRN PRN NEB 02/28/25 16:00 03/01/25 03:40 0.5 MG Aspirin 81 mg DAILY PO 03/02/25 10:00 03/17/25 10:02 81 MG Propofol 100 ml @ 1.854 mls/ hr Q24H IV 03/03/25 16:15 03/13/25 06:54 5.562 MLS/HR Fentanyl Citrate 250 ml @ 2.5 mls/hr Q24H IV 03/03/25 16:15 03/17/25 10:22 20 MLS/HR Vasopressin 20 units/Sodium Chloride 100 ml @ 9 mls/hr Q11H7M IV 03/03/25 17:30 03/17/25 07:47 9 MLS/HR Vancomycin HCl 0 ml @ 0 mls/hr UD IV 03/03/25 18:45 UNV Enteral Nutritional Formula 1,000 ml 30ML/HR GT 03/04/25 14:15 03/17/25 02:11 1,000 ML Metoclopramide HCl 10 mg Q8HR IV 03/05/25 22:00 03/17/25 05:56 10 MG Enoxaparin Sodium 60 mg Q12HR SC 03/06/25 22:00 03/17/25 10:13 60 MG Atorvastatin Calcium 40 mg HS PO 03/10/25 22:00 03/16/25 22:04 40 MG Albuterol 2.5 mg Q6HWA [facility] 03/10/25 18:00 03/17/25 11:34 2.5 MG Hydrocortisone Sodium Succinate 25 mg BID IV 03/10/25 22:00 03/17/25 10:02 25 MG Quetiapine Fumarate 25 mg QPM PO 03/10/25 18:00 03/14/25 18:22 25 MG Ipratropium [place] 0.5 mg Q6HWA [facility] 03/10/25 18:00 Cancel Ipratropium [place] 0.5 mg Q6HWA [facility] 03/10/25 18:00 03/17/25 11:34 0.5 MG Furosemide 20 mg BIDD IV 03/11/25 18:00 03/17/25 05:56 20 MG Norepinephrine Bitartrate 32 mg/ Sodium Chloride 250 ml @ 0.938 mls/ hr Q24H IV 03/12/25 16:30 03/16/25 17:33 3.75 MLS/HR Lactulose 30 ml DAILY PO 03/14/25 10:00 03/14/25 09:41 30 ML Amiodarone HCl 200 mg Q12HR PO 03/15/25 22:00 03/17/25 10:02 200 MG Midazolam HCl 100 ml @ 1 mls/hr Q24H IV 03/16/25 18:00 03/17/25 05:56 3 MLS/HR objective General intubated and sedated HEENT: Atraumatic,intubated Neck: No swelling Lungs: Equal air entry and clear to auscultation Cardiovascular: S1 S2 heard no murmur Abdomen: Soft nontender, no organomegaly, nondistended Neuro: unable to assess extremities: purple toes.. poor pheripheral circulation laboratory and microbiology Laboratory Tests 03/17/25 03:30 Test 03/17/25 03:30 Range/Units Serum Glucose 136 H 74-106 mg/dL Assessment/Plan A 64-year-old female Shock due to cardiogenic versus septic Influenza B pneumonia Acute hypoxic respiratory failure - on Mechanical ventilation thrombocytopenia fluid overload Hepatitis-C antibody positive Congestive heart failure Apical thrombus Severe pulmonary hypertension Methamphetamine abuse Acute kidney injury Noncompliance Tobacco use COPD Recommendations possible plan to wean her tomorrow s/p bronch; BAL cultures show normal janet.. DC Cefepime WBC count is with in normal range Family has showed no intentions of HD as per Nephrology is condition worsens due to grim prognosis poor peripheral circulation has purple toes etc/ Patient has been on prolonged course of antibiotics since admission without clear indication of bacterial infection. Her Hypotension is more related to cardiac she is off Dopamine and Vasopressin. continues to be on nor epi.. ( even that is trending down) she has multiorgan failure due to underlying history of pulmonary hypertension, CHF, meth abuse completed Tamiflu x 5 days total Reviewed all the cultures from the admission until now which are negative except for influenza B Antibiotics history Azithromycin 02/25 until now Ceftriaxone 02/25- 03/03 Linezolid 03/03- now Zosyn: 03/03- 03/10 Cefepime 03/10- 03/14 Tamiflu 03/05- now 03/14 chest X ray revealed : Cardiomegaly, left pleural effusion and multifocal bilateral pulmonary airspace disease remonstrated 03/16 chest x ray revealed : Stable small pleural effusion and bibasilar pulmonary airspace disease Multiple subspecialties are on board such as Cardiology, Nephrology Overall prognosis of this patient is very poor, possible plan for compassionate extubation total time 35 minutes spent during the encounter plan discussed with treatment team Dietary Evaluation Review Comments: 1) Liberalizing to 2gm Na diet 2) Monitor PO intake, lab values, weight trend, and I/O Expected Outcomes/Goals: To meet >75% estimated needs Fu 3-5 days Plan discussed with: ALEJANDRO Mahoney MD Mar 17, 2025 11:51
--- NOTE | 2025-03-17 16:28 | DVHPN2 ---
Subjective Patient currently remains intubated, toes. Family has decided to do terminal wean possibly tomorrow. Reviewed: Care Plan Changes from previous H/P or p: No Changes Objective Vitals Vital Signs Date Time Temp Pulse Resp B/P (MAP) Pulse Ox O2 Delivery O2 Flow Rate FiO2 03/17/25 16:00 94 03/17/25 16:00 14 100 Mechanical Ventilator+ 50 50 03/17/25 16:00 97.5 94/76 (82) 97.5 Intake/Output Intake and Output 03/17/25 07:00 Intake Total 1724.630 ml Output Total 1100 ml Balance 624.630 ml Intake Oral 160 ml IV Total 1050.630 ml Tube Feeding 514 ml Output Urine Total 1100 ml # Bowel Movements 2 Exam HEENT pupils are reactive Neck is supple CV is S1-S2 regular rate and rhythm Respiratory diminished breath sounds bases , bilateral basal crackles GI positive bowel sound Extremity no edema FRAME ALIGNER, intubated and sedated Medications Current Medications Medications Dose Ordered Sig/Jose Luis Route Start Time Stop Time Status Last Admin Dose Admin Ondansetron HCl 4 mg Q6HP PRN IV 02/25/25 23:00 02/27/25 17:24 4 MG Pantoprazole Sodium 40 mg DAILY IV 02/26/25 10:00 03/17/25 10:02 40 MG Acetaminophen 650 mg Q6HPRN PRN PO 02/25/25 23:00 03/10/25 20:52 650 MG Lorazepam 1 mg Q6HP PRN PO 02/27/25 16:10 03/03/25 05:19 1 MG Guaifenesin 200 mg Q4HP PRN PO 02/28/25 15:00 03/03/25 05:19 200 MG Albuterol 2.5 mg Q2HPRN PRN NEB 02/28/25 16:00 03/01/25 03:40 2.5 MG Ipratropium [place] 0.5 mg Q2HPRN PRN NEB 02/28/25 16:00 03/01/25 03:40 0.5 MG Aspirin 81 mg DAILY PO 03/02/25 10:00 03/17/25 10:02 81 MG Fentanyl Citrate 250 ml @ 2.5 mls/hr Q24H IV 03/03/25 16:15 03/17/25 10:22 20 MLS/HR Vasopressin 20 units/Sodium Chloride 100 ml @ 9 mls/hr Q11H7M IV 03/03/25 17:30 03/17/25 07:47 9 MLS/HR Vancomycin HCl 0 ml @ 0 mls/hr UD IV 03/03/25 18:45 UNV Enteral Nutritional Formula 1,000 ml 30ML/HR GT 03/04/25 14:15 03/17/25 02:11 1,000 ML Metoclopramide HCl 10 mg Q8HR IV 03/05/25 22:00 03/17/25 05:56 10 MG Enoxaparin Sodium 60 mg Q12HR SC 03/06/25 22:00 03/17/25 10:13 60 MG Atorvastatin Calcium 40 mg HS PO 03/10/25 22:00 03/16/25 22:04 40 MG Albuterol 2.5 mg Q6HWA [facility] 03/10/25 18:00 03/17/25 11:34 2.5 MG Hydrocortisone Sodium Succinate 25 mg BID IV 03/10/25 22:00 03/17/25 10:02 25 MG Quetiapine Fumarate 25 mg QPM PO 03/10/25 18:00 03/14/25 18:22 25 MG Ipratropium [place] 0.5 mg Q6HWA [facility] 03/10/25 18:00 Cancel Ipratropium [place] 0.5 mg Q6HWA [facility] 03/10/25 18:00 03/17/25 11:34 0.5 MG Furosemide 20 mg BIDD IV 03/11/25 18:00 03/17/25 05:56 20 MG Norepinephrine Bitartrate 32 mg/ Sodium Chloride 250 ml @ 0.938 mls/ hr Q24H IV 03/12/25 16:30 03/17/25 15:24 2.813 MLS/HR Lactulose 30 ml DAILY PO 03/14/25 10:00 03/14/25 09:41 30 ML Amiodarone HCl 200 mg Q12HR PO 03/15/25 22:00 03/17/25 10:02 200 MG Midazolam HCl 100 ml @ 1 mls/hr Q24H IV 03/16/25 18:00 03/17/25 05:56 3 MLS/HR Laboratory Results Laboratory Tests 03/17/25 03:30 Chemistry Test 03/17/25 03:30 Albumin 2.8 g/dL (3.2-4.8) L Calcium Level 8.3 mg/dL (8.7-10.4) L Magnesium Level 2.4 mg/dL (1.6-2.6) Total Protein 5.3 g/dL (5.7-8.2) L LFT Test 03/17/25 03:30 Alanine Aminotransferase (ALT) 48 U/L (7-40) H Alkaline Phosphatase 69 U/L (46-116) Aspartate Amino Transferase (AST) 41 U/L (13-40) H Total Bilirubin 0.6 mg/dL (0.2-1.0) Urinalysis Test 03/05/25 10:40 Urine Color Light-yellow (Yellow) Urine Clarity Clear (Clear) Urine pH 7.0 (5.0-9.0) Urine Specific Umbarger 1.009 (1.001-1.035) Urine Protein Negative (Negative) Urine Ketones Negative (Negative) Urine Blood Negative /uL (Negative) Urine Nitrite Negative (Negative) Urine Bilirubin Negative (Negative) Urine Urobilinogen Normal mg/dL (Negative) Urine Leukocyte Esterase Negative /uL (Negative) Urine RBC 1 /hpf (0 - 4) Urine Microscopic WBC 1 /HPF (0-5) Urine Squamous Epithelial Cells None seen /hpf (<5) Urine Bacteria None seen /hpf (None Seen) Urine Yeast (Budding) Few /hpf (None Seen) Urine Creatinine 11.91 mg/dL (30.0-125.0) L Urine Protein/Creatinine Ratio 1.23 Urine Sodium 77 mmol/L (40-220) Urine Glucose 4+ mg/dL (Normal) H Urine Total Protein 14.7 mg/dL (1-14) H Blood Gas Results Test 03/17/25 06:30 Arterial Blood pH 7.251 (7.350-7.450) FiO2 % 40.0 Microbiology Microbiology Date/Time Source Procedure Growth Status 03/12/25 12:35 Bronchial Washings Gram Stain - Final Complete 03/12/25 12:35 Respiratory Culture - Final Presumptive Lenora albicans Complete 03/05/25 15:00 Nose MRSA Screen - Final Complete 03/03/25 22:09 Urine - [place] Urine Culture - Final Complete 03/03/25 19:15 Blood Blood Culture - Final NO GROWTH AFTER 5 DAYS OF INCUBATION. Complete Assessment/Plan Assessment/Plan 64-year-old female with a known history of pulmonary hypertension, ischemic cardiomyopathy, CAD status post PCI, COPD, chronic meth use presented to the hospital with the abdominal pain patient was found to have 1. Acute hypoxic respiratory failure requiring intubation and mechanical ventilation, currently on FiO2 50% . 2. Abdominal pain, acute cholecystitis has been ruled out 3. Suspected pneumonia, on IV antibiotic 4. Acute on chronic congestive heart failure exacerbation with systolic dysfunction 5. Relative hypotension, currently on vasopressor 5. Chronic meth use 6. Acute kidney injury likely hemodynamically mediated, currently off of diuretics 7. Chronic tobacco use disorder/marijuana use 8. Thrombocytopenia suspect Zosyn induced, DC Zosyn, start cefepime 9. Acute on chronic metabolic encephalopathy - patient currently remains intubated and sedated, currently DNR, terminal and past daughter was updated at bedside.. Plan discussed with: Other My Orders Orders - PING SANDERSON MD Procedure Category Date Status Time * Insurance Agency Sales Manager CONS 03/17/25 Transmitted Consult 15:23 Date of Service: Mar 17, 2025 Billing Provider: PING SANDERSON MD Common Visit Codes: NOT BILLABLE PING SANDERSON MD Mar 17, 2025 16:28
--- NOTE | 2025-03-17 23:29 | DVHPN2 ---
Progress Note - Dictate Date Seen: Mar 17, 2025 Has the PT tested + for MRSA If YES, has PT been informed?: No Medical Necessity Reason Pt with a Central, PICC or Fol: Yes The following are medically ne: Central Line, Obrien Catheter Reason for obrien catheter: Strict I&O Subjective Patient seen and examined at bedside. Sedated, intubated on mechanical ventilator. Overnight events reviewed. vital signs Vital Sign Date Time Temp Pulse Resp B/P (MAP) Pulse Ox O2 Delivery O2 Flow Rate FiO2 03/17/25 22:00 97 14 108/72 (84) 100 03/17/25 21:52 50 03/17/25 20:00 98.4 98.4 03/17/25 20:00 Mechanical Ventilator+ Total Intake and Output 03/16/25 03/16/25 03/17/25 15:00 23:00 07:00 Intake Total 394.00 ml 663.626 ml 667.004 ml Output Total 500 ml 600 ml Balance 394.00 ml 163.626 ml 67.004 ml medications Current Medications Medications Dose Ordered Sig/Jose Luis Route Start Time Stop Time Status Last Admin Dose Admin Ondansetron HCl 4 mg Q6HP PRN IV 02/25/25 23:00 02/27/25 17:24 4 MG Pantoprazole Sodium 40 mg DAILY IV 02/26/25 10:00 03/17/25 10:02 40 MG Acetaminophen 650 mg Q6HPRN PRN PO 02/25/25 23:00 03/10/25 20:52 650 MG Lorazepam 1 mg Q6HP PRN PO 02/27/25 16:10 03/03/25 05:19 1 MG Guaifenesin 200 mg Q4HP PRN PO 02/28/25 15:00 03/03/25 05:19 200 MG Albuterol 2.5 mg Q2HPRN PRN NEB 02/28/25 16:00 03/01/25 03:40 2.5 MG Ipratropium [place] 0.5 mg Q2HPRN PRN NEB 02/28/25 16:00 03/01/25 03:40 0.5 MG Aspirin 81 mg DAILY PO 03/02/25 10:00 03/17/25 10:02 81 MG Fentanyl Citrate 250 ml @ 2.5 mls/hr Q24H IV 03/03/25 16:15 03/17/25 20:02 25 MLS/HR Vasopressin 20 units/Sodium Chloride 100 ml @ 9 mls/hr Q11H7M IV 03/03/25 17:30 03/17/25 18:57 9 MLS/HR Vancomycin HCl 0 ml @ 0 mls/hr UD IV 03/03/25 18:45 UNV Enteral Nutritional Formula 1,000 ml 30ML/HR GT 03/04/25 14:15 03/17/25 02:11 1,000 ML Metoclopramide HCl 10 mg Q8HR IV 03/05/25 22:00 03/17/25 21:49 10 MG Enoxaparin Sodium 60 mg Q12HR SC 03/06/25 22:00 03/17/25 21:50 60 MG Atorvastatin Calcium 40 mg HS PO 03/10/25 22:00 03/17/25 21:50 40 MG Albuterol 2.5 mg Q6HWA [facility] 03/10/25 18:00 03/17/25 18:12 2.5 MG Hydrocortisone Sodium Succinate 25 mg BID IV 03/10/25 22:00 03/17/25 21:48 25 MG Quetiapine Fumarate 25 mg QPM PO 03/10/25 18:00 03/14/25 18:22 25 MG Ipratropium [place] 0.5 mg Q6HWA [facility] 03/10/25 18:00 Cancel Ipratropium [place] 0.5 mg Q6HWA [facility] 03/10/25 18:00 03/17/25 18:12 0.5 MG Furosemide 20 mg BIDD IV 03/11/25 18:00 03/17/25 17:30 20 MG Norepinephrine Bitartrate 32 mg/ Sodium Chloride 250 ml @ 0.938 mls/ hr Q24H IV 03/12/25 16:30 03/17/25 15:24 2.813 MLS/HR Lactulose 30 ml DAILY PO 03/14/25 10:00 03/14/25 09:41 30 ML Amiodarone HCl 200 mg Q12HR PO 03/15/25 22:00 03/17/25 21:49 200 MG Midazolam HCl 100 ml @ 1 mls/hr Q24H IV 03/16/25 18:00 03/17/25 05:56 3 MLS/HR objective Gen.: Patient lying in bed in medical ICU. Sedated, intubated on mechanical ventilator. Head: Normocephalic, atraumatic. Eyes: PERRLA. Ears: Normal external anatomy. Throat: Endotracheal tube and orogastric tube in place. Neck: Supple, trachea midline. Chest: Transmitted breath sounds bilaterally. Decreased air entry bilaterally. No wheezing. Bibasilar crackles. Cardiovascular: Positive S1, positive S2. Regular rate and rhythm. Abdomen: Positive bowel sounds in all 4 quadrants. Soft, nontender, nondistended. : Obrien in place. Normal external genitalia. Rectal: Deferred. Skin: Warm, dry. Intact. Extremities: 2+ radial pulses bilaterally. No lower extremity edema. Neuro: Sedated. laboratory and microbiology Laboratory Tests 03/17/25 03:30 Test 03/17/25 03:30 Range/Units Serum Glucose 136 H 74-106 mg/dL Assessment/Plan Impression: Acute hypoxic respiratory failure On mechanical ventilator Influenza B Pneumonia d/t influenza B Metabolic acidosis Anemia Amphetamine dependence Renal failure Obesity, BMI 32.6 Events: Remains on vent support On AC mode; RR 14, VT 350, PEEP 10, FiO2 40% Taper FiO2 as tolerated ABG reviewed, notable for acidemia due to CO2 retention. Poor ventilation. Continue antibiotics Continue bronchodilators. IV steroids On amiodarone PO Continue to monitor hemoglobin - trended down to 7.6 g/dL Diurese with Lasix Monitor renal function Monitor electrolytes. Supplement as necessary. Monitor ins and outs. Poor prognosis Labs and imaging reviewed. Rest of plan as noted below. Plan: s/p intubation on mechanical ventilator. On AC mode; RR 14, VT 350, PEEP 10, FiO2 40% Titrate FIO2 to keep O2 saturation above 90%. VAP bundle. Daily ABG and CXR while intubated Sedate for ventilator synchrony Continue antibiotics Continue bronchodilators. IV steroids Pressors for hemodynamic support Titrate to keep mean arterial pressure greater than 65 mmHg. Diurese with Lasix Monitor renal function Monitor electrolytes. Supplement as necessary. Monitor ins and outs. Maintain euvolemia Monitor hemoglobin d/t anemia Transfuse if less than 7.0 g/dL. Recommend diet and lifestyle modifications for weight reduction Obesity complicates all care GI prophylaxis. DVT prophylaxis. Prognosis: Poor given patient's multiple co-morbidities. Condition: Critical Rest of plan per hospitalist and other consultants. A total of 35 minutes of critical care time was spent reviewing the patient record, examining the patient, making a diagnostic and therapeutic plan, discussing this plan with the medical personnel, following up on diagnostic studies and following the patient for clinical stability excluding any and all procedures. At least 50% of this time was spent in direct, [id number] contact. Thank you, LAKESHIA Rodriguez, for allowing me to participate in this patient's care. Further recommendations will depend on the patient's clinical course. Please do not hesitate to contact me if you have any questions or concerns. This medical document was created using an electronic medical record system with Vys[employer] dictation system. Although these documentations are being carefully reviewed, there may still be some phonetic and typographical changes. The errors are purely typographical, due to imperfection on the software program, and do not reflect any compromise in the patient's medical care. Dietary Evaluation Review Comments: 1) Liberalizing to 2gm Na diet 2) Monitor PO intake, lab values, weight trend, and I/O Expected Outcomes/Goals: To meet >75% estimated needs Fu 3-5 days Plan discussed with: Other (ROSANNA Davis) Critical Care Time(min): 35 [facility]eseret Mar 17, 2025 23:29
[2025-03-18] VITALS (69 sets, daily range): BP systolic 63–124; BP diastolic 37–78; PULSE 76–125; RESP 10–18; TEMP 97.9–98.7; O2SAT 54–100
--- NOTE | 2025-03-18 08:47 | DVHPN2 ---
Progress Note - Dictate Date Seen: Mar 18, 2025 Has the PT tested + for MRSA If YES, has PT been informed?: No Medical Necessity Reason Pt with a Central, PICC or Fol: Yes The following are medically ne: Central Line, Obrien Catheter Reason for obrien catheter: Strict I&O Subjective Patient is on intubation and sedated. On mechanical ventilation for acute on chronic hypoxic Respiratory Failure. vital signs Vital Sign Date Time Temp Pulse Resp B/P (MAP) Pulse Ox O2 Delivery O2 Flow Rate FiO2 03/18/25 08:27 95 14 106/74 (85) 100 50 03/18/25 06:00 Mechanical Ventilator+ 03/18/25 04:00 97.9 97.9 Total Intake and Output 03/17/25 03/17/25 03/18/25 15:00 23:00 07:00 Intake Total 278.504 ml 756.504 ml 692.817 ml Output Total 600 ml 550 ml Balance 278.504 ml 156.504 ml 142.817 ml medications Current Medications Medications Dose Ordered Sig/Jose Luis Route Start Time Stop Time Status Last Admin Dose Admin Ondansetron HCl 4 mg Q6HP PRN IV 02/25/25 23:00 02/27/25 17:24 4 MG Pantoprazole Sodium 40 mg DAILY IV 02/26/25 10:00 03/17/25 10:02 40 MG Acetaminophen 650 mg Q6HPRN PRN PO 02/25/25 23:00 03/10/25 20:52 650 MG Lorazepam 1 mg Q6HP PRN PO 02/27/25 16:10 03/03/25 05:19 1 MG Guaifenesin 200 mg Q4HP PRN PO 02/28/25 15:00 03/03/25 05:19 200 MG Albuterol 2.5 mg Q2HPRN PRN NEB 02/28/25 16:00 03/01/25 03:40 2.5 MG Ipratropium [place] 0.5 mg Q2HPRN PRN NEB 02/28/25 16:00 03/01/25 03:40 0.5 MG Aspirin 81 mg DAILY PO 03/02/25 10:00 03/17/25 10:02 81 MG Fentanyl Citrate 250 ml @ 2.5 mls/hr Q24H IV 03/03/25 16:15 03/18/25 07:43 22.5 MLS/HR Vasopressin 20 units/Sodium Chloride 100 ml @ 9 mls/hr Q11H7M IV 03/03/25 17:30 03/18/25 06:12 9 MLS/HR Vancomycin HCl 0 ml @ 0 mls/hr UD IV 03/03/25 18:45 UNV Enteral Nutritional Formula 1,000 ml 30ML/HR GT 03/04/25 14:15 03/18/25 07:31 1,000 ML Metoclopramide HCl 10 mg Q8HR IV 03/05/25 22:00 03/18/25 04:45 10 MG Atorvastatin Calcium 40 mg HS PO 03/10/25 22:00 03/17/25 21:50 40 MG Albuterol 2.5 mg Q6HWA [facility] 03/10/25 18:00 03/18/25 06:13 2.5 MG Hydrocortisone Sodium Succinate 25 mg BID IV 03/10/25 22:00 03/17/25 21:48 25 MG Quetiapine Fumarate 25 mg QPM PO 03/10/25 18:00 03/14/25 18:22 25 MG Ipratropium [place] 0.5 mg Q6HWA [facility] 03/10/25 18:00 Cancel Ipratropium [place] 0.5 mg Q6HWA [facility] 03/10/25 18:00 03/18/25 06:13 0.5 MG Furosemide 20 mg BIDD IV 03/11/25 18:00 03/18/25 04:45 20 MG Norepinephrine Bitartrate 32 mg/ Sodium Chloride 250 ml @ 0.938 mls/ hr Q24H IV 03/12/25 16:30 03/17/25 15:24 2.813 MLS/HR Lactulose 30 ml DAILY PO 03/14/25 10:00 03/14/25 09:41 30 ML Amiodarone HCl 200 mg Q12HR PO 03/15/25 22:00 03/17/25 21:49 200 MG Midazolam HCl 100 ml @ 1 mls/hr Q24H IV 03/16/25 18:00 03/18/25 02:39 4 MLS/HR objective General intubated and sedated HEENT: Atraumatic,intubated Neck: No swelling Lungs: Equal air entry and clear to auscultation Cardiovascular: S1 S2 heard no murmur Abdomen: Soft nontender, no organomegaly, nondistended Neuro: sedated extremities: purple toes.. poor pheripheral circulation laboratory and microbiology Laboratory Tests 03/17/25 03:30 Test 03/17/25 03:30 Range/Units Serum Glucose 136 H 74-106 mg/dL Assessment/Plan A 64-year-old female Shock due to cardiogenic versus septic Influenza B pneumonia Acute hypoxic respiratory failure - on Mechanical ventilation thrombocytopenia fluid overload Hepatitis-C antibody positive Congestive heart failure Apical thrombus Severe pulmonary hypertension Methamphetamine abuse Acute kidney injury Noncompliance Tobacco use COPD Recommendations plan for discharge with hospice after weaning today. Family has showed no intentions of HD as per Nephrology is condition worsens due to grim prognosis poor peripheral circulation has purple toes etc/ Patient has been on prolonged course of antibiotics since admission without clear indication of bacterial infection. Her Hypotension is more related to cardiac she is off Dopamine and Vasopressin. continues to be on nor epi.. ( even that is trending down) she has multiorgan failure due to underlying history of pulmonary hypertension, CHF, meth abuse completed Tamiflu x 5 days total Reviewed all the cultures from the admission until now which are negative except for influenza B Antibiotics history Azithromycin 02/25 until now Ceftriaxone 02/25- 03/03 Linezolid 03/03- now Zosyn: 03/03- 03/10 Cefepime 03/10- 03/14 Tamiflu 03/05- now 03/14 chest X ray revealed : Cardiomegaly, left pleural effusion and multifocal bilateral pulmonary airspace disease remonstrated 03/16 chest x ray revealed : Stable small pleural effusion and bibasilar pulmonary airspace disease Multiple subspecialties are on board such as Cardiology, Nephrology Overall prognosis of this patient is very poor, possible plan for compassionate extubation total time 35 minutes spent during the encounter plan discussed with treatment team Dietary Evaluation Review Comments: 1) Liberalizing to 2gm Na diet 2) Monitor PO intake, lab values, weight trend, and I/O Expected Outcomes/Goals: To meet >75% estimated needs Fu 3-5 days Plan discussed with: ALEJANDRO Mahoney MD Mar 18, 2025 08:47
[2025-03-18] MEDS: MORPHINE SULFATE INJ 2 MG/ml SYRG ONE ×2 (12:43→14:02)
[2025-03-18] MEDS ORDERED: MORPHINE SULFATE 4 MG/ML SYR/VIAL IV PRN (12:45)
[2025-03-18] MEDS: LORazepam 2MG/ML-1ML VIAL ONE (12:45)
[2025-03-18] MEDS: MORPHINE SULFATE INJ 2 MG/ml SYRG IV PRN (13:47)
[2025-03-18] MEDS: LORazepam 2MG/ML-1ML VIAL IV PRN (14:01)
--- NOTE | 2025-03-18 15:32 | DVHDS2 ---
Discharge Summary Date of Admission Feb 25, 2025 at 22:49 Date of Discharge: Feb 28, 2025 Labs/Diagnostic Data: Laboratory Results Test 03/17/25 06:30 03/17/25 03:30 03/13/25 08:26 03/12/25 16:10 Blood Gas Specimen Type Arterial Blood Gas Sample Site Right radial Blood Gas Patient Temperature 37.0 Arterial Blood Date Drawn [id number] Arterial Blood pH 7.251 (7.350-7.450) Arterial Blood Partial Pressure CO2 79.3 mmHg (32.0-45.0) Arterial Blood Partial Pressure O2 68.3 mmHg (83.0-108.0) Arterial Blood HCO3 34.1 mmol/L (21.0-28.0) Arterial Blood Oxygen Saturation 89.6 % (94.0-98.0) Arterial Blood Base Excess 4.7 mmol/L (-2.0-3.0) Arterial Blood Oxyhemoglobin 88.6 % (94.0-98.0) Arterial Blood Carboxyhemoglobin 0.7 % (0.5-1.5) Arterial Blood Methemoglobin 0.4 % (0.0-1.5) Sincere Test Modified Blood Gas Total Hemoglobin 11.90 g/dL (12.0-16.0) Blood Gas Set Respiration Rate 14.0 Blood Gas Modality Vent - ac FiO2 % 40.0 Blood Gas Tidal Volume 350.0 Blood Gas PEEP or CPAP 10.0 Blood Gas Critical Value Read Back yes Blood Gas Notified Whom Blood Gas Notified Time [id number] Blood Gas Notified By supervising law enforcement analyst shannon White Blood Count 6.1 10^3/uL (4.4-10.8) Red Blood Count 2.87 10^6/uL (4.0-5.20) Hemoglobin 7.6 g/dL (12.2-16.2) Hematocrit 24.0 % (36.0-46.0) Mean Corpuscular Volume 83.9 fL (80.0-100.0) Mean Corpuscular Hemoglobin 26.3 pg (28.0-32.0) Mean Corpuscular Hemoglobin Concent 31.4 g/dL (32.0-36.0) Red Cell Distribution Width 19.1 % (11.8-14.3) Platelet Count 146 10^3/uL (140-450) Mean Platelet Volume 8.6 fL (6.9-10.8) Neutrophils (%) (Auto) 88.7 % (37.0-80.0) Lymphocytes (%) (Auto) 2.1 % (10.0-50.0) Monocytes (%) (Auto) 9.1 % (0.0-12.0) Eosinophils (%) (Auto) 0.0 % (0.0-7.0) Basophils (%) (Auto) 0.1 % (0.0-2.0) Neutrophils # (Auto) 5.4 10 ^3/uL (1.6-8.6) Lymphocytes # (Auto) 0.1 10 ^3/uL (0.4-5.4) Monocytes # (Auto) 0.6 10 ^3/uL (0-1.3) Eosinophils # (Auto) 0 10 ^3/uL (0-0.8) Basophils # (Auto) 0 10 ^3/uL (0-0.2) Nucleated Red Blood Cells 0.4 % Sodium Level 147 mmol/L (136-145) Potassium Level 3.9 mmol/L (3.5-5.1) Chloride Level 105 mmol/L (98-107) Carbon Dioxide Level 34 mmol/L (20-31) Anion Gap 8 (5-15) Blood Urea Nitrogen 56 mg/dL (9-23) Creatinine 1.38 mg/dL (0.550-1.02) Glomerular Filtration Rate Calc 42 mL/min (>90) BUN/Creatinine Ratio 40.6 (10.0-20.0) Serum Glucose 136 mg/dL (74-106) Calcium Level 8.3 mg/dL (8.7-10.4) Magnesium Level 2.4 mg/dL (1.6-2.6) Total Bilirubin 0.6 mg/dL (0.2-1.0) Aspartate Amino Transferase (AST) 41 U/L (13-40) Alanine Aminotransferase (ALT) 48 U/L (7-40) Alkaline Phosphatase 69 U/L (46-116) Total Protein 5.3 g/dL (5.7-8.2) Albumin 2.8 g/dL (3.2-4.8) Cortisol AM Sample 52.22 ug/dL (5.27-22.45) Cortisol PM Sample 69.93 ug/dL (3.44-16.76) Test 03/10/25 17:12 03/10/25 15:00 03/09/25 03:33 03/05/25 21:00 Influenza Type A Antigen Negative (Negative) Influenza Type B Antigen Negative (Negative) SARS-CoV-2 Antigen (Rapid) Negative (NEGATIVE) B-Type Natriuretic Peptide 850.42 pg/mL (0-100) Lactic Acid Level 1.4 mmol/L (0.4-2.0) Test 03/05/25 10:40 03/05/25 02:00 03/04/25 07:29 03/04/25 03:17 Urine Color Light-yellow (Yellow) Urine Clarity Clear (Clear) Urine pH 7.0 (5.0-9.0) Urine Specific [place] 1.009 (1.001-1.035) Urine Protein Negative (Negative) Urine Ketones Negative (Negative) Urine Blood Negative /uL (Negative) Urine Nitrite Negative (Negative) Urine Bilirubin Negative (Negative) Urine Urobilinogen Normal mg/dL (Negative) Urine Leukocyte Esterase Negative /uL (Negative) Urine RBC 1 /hpf (0 - 4) Urine Microscopic WBC 1 /HPF (0-5) Urine Squamous Epithelial Cells None seen /hpf (<5) Urine Bacteria None seen /hpf (None Seen) Urine Yeast (Budding) Few /hpf (None Seen) Urine Creatinine 11.91 mg/dL (30.0-125.0) Urine Protein/Creatinine Ratio 1.23 Urine Sodium 77 mmol/L (40-220) Urine Glucose 4+ mg/dL (Normal) Urine Total Protein 14.7 mg/dL (1-14) Phosphorus Level 3.4 mg/dL (2.4-5.1) Parathyroid Hormone (Intact) 478.3 pg/mL (18.4-80.1) Blood Gas Spontaneous Rate 24 Ammonia 15 umol/L (11-32) Hepatitis A Antibody Total Positive (Negative) Hepatitis B Surface Antigen Negative (Negative) Hepatitis B Surface Antibody Negative (Negative) Hepatitis B Core Total Antibody Negative (Negative) Hepatitis C Antibody Positive (Negative) Test 03/03/25 15:25 03/02/25 20:46 03/01/25 13:19 03/01/25 05:54 Blood Gas Liter Flow 5.00 D-Dimer, Quantitative 17.76 mg/L FEU (0.0-0.49) Free Thyroxine (T4) Calculated 1.07 ng/dL (0.89-1.76) Free Triiodothyronine (T3) pg/mL 1.97 pg/mL (2.3-4.2) Hemoglobin A1c 5.6 % A1C (<5.7) C-Reactive Protein High Sensitivity 16.68 mg/dL (<1.0) Triglycerides Level 102 mg/dL (< 150) Cholesterol Level 133 mg/dL (< 200) LDL Cholesterol 98 mg/dL (< 100) HDL Cholesterol 27 mg/dL (40-59) Lipase 22 U/L (12-53) Thyroid Stimulating Hormone (TSH) 8.56 uIU/mL (0.55-4.78) Test 02/27/25 08:37 02/26/25 06:09 02/25/25 23:50 Prothrombin Time 11.9 sec (9.3-11.8) Prothrombin Time INR 1.14 (0.9-1.15) Activated Partial Thromboplast Time 26.0 SEC (24.5-34.5) Iron Level 36 ug/dL (50-170) Total Iron Binding Capacity 291 ug/dL (250-425) Percent Iron Saturation 12.4 % (15-50) Ferritin 45.5 ng/mL (10-291) Vitamin B12 Level 484 pg/mL (211-911) Urine Opiates Screen Neg (NEGATIVE) Urine Fentanyl Screen Neg (NEGATIVE) Urine Barbiturates Screen Neg (NEGATIVE) Urine Phencyclidine Screen Neg (NEGATIVE) Urine Amphetamines Screen Pos (NEGATIVE) Urine Benzodiazepines Screen Neg (NEGATIVE) Urine Cocaine Screen Neg (NEGATIVE) Urine Cannabinoids Screen Neg (NEGATIVE) Other Laboratory Tests 03/17/25 03:30 Brief Hx & Hospital Course: 64-year-old female with a known history of pulmonary hypertension, ischemic cardiomyopathy, CAD status post PCI, COPD, chronic meth use, chronic tobacco use disorder, presented to the hospital with the abdominal pain patient was found to have acute hypoxic respiratory failure requiring intubation and mechanical ventilation. Initially patient was only on supplemental oxygen but hospital course was eventful for decompensation with respiratory distress on the floor eventually requiring intubation. Patient was kept in ICU. Patient was treated for suspected pneumonia as well as acute on chronic congestive heart failure exacerbation with systolic dysfunction. Patient was also having relative hypotension requiring IV vasopressor. Patient was being seen by Cardiology as well as Pulmonary. Patient never came off the ventilator eventually family decided to have terminal wean patient was terminally weaned today currently she is O2 sats around 80-88% on 2-4 L facemask, patient's family chooses hospice patient is being being discharged with the home hospice. Condition at Discharge: Guarded Final Diagnosis/Problems List 64-year-old female with a known history of pulmonary hypertension, ischemic cardiomyopathy, CAD status post PCI, COPD, chronic meth use presented to the hospital with the abdominal pain patient was found to have 1. Acute hypoxic respiratory failure requiring intubation and mechanical ventilation, currently on FiO2 50% . 2. Abdominal pain, acute cholecystitis has been ruled out 3. Suspected pneumonia, on IV antibiotic 4. Acute on chronic congestive heart failure exacerbation with systolic dysfunction 5. Relative hypotension, currently on vasopressor 5. Chronic meth use 6. Acute kidney injury likely hemodynamically mediated, currently off of diuretics 7. Chronic tobacco use disorder/marijuana use 8. Thrombocytopenia suspect Zosyn induced, DC Zosyn, start cefepime 9. Acute on chronic metabolic encephalopathy - patient currently remains intubated and sedated Discharge Disposition: Hospice - Home SNF Discharge Will this Physician continue t: No Discharge Instruct/Medications Diet: Cardiac 2g Na,low cholest, See Comment Activity: No Restrictions, As Tolerated Scheduled Amiodarone Hcl (Amiodarone Hcl), 1 TAB PO DAILY, (Reported) Aspirin (Aspirin Low Dose), 1 TAB PO DAILY, (Reported) Clopidogrel Bisulfate (Plavix), 1 TAB PO DAILY, (Reported) Furosemide (Furosemide), 1 TAB PO DAILY, (Reported) Levothyroxine Sodium (Levothyroxine Sodium), 50 MCG PO QAM, (Reported) Pantoprazole Sodium Sesquihydr (Protonix), 40 MG PO BID Sacubitril-Valsartan (Entresto 24-26 mg), 1 TAB PO DAILY, (Reported) Sildenafil Citrate (Sildenafil Citrate), 20 MG PO DAILY@0900, (Reported) Spironolactone (Spironolactone), 1 TAB PO DAILY, (Reported) Scheduled PRN Acetaminophen (Acetaminophen), 500 MG PO Q4HP PRN Discharge Statement: "Patient was advised to return to the ER or call 911 if any headaches, dizziness, shortness of breath, chest pain, abdominal pain, bleeding, fevers, or worsening of medical condition. Patient was counseled about treatment plan, medications, possible side effects, patientverbalized understanding. All questions were answered to the best of my ability. This discharge took greater then 30 minutes in planning, reviewing documentation, counseling the patient, and discussing with other team members." ASSESSMENT ASSESSMENT Assessment 64-year-old female with a known history of pulmonary hypertension, ischemic cardiomyopathy, CAD status post PCI, COPD, chronic meth use presented to the hospital with the abdominal pain patient was found to have 1. Acute hypoxic respiratory failure requiring intubation and mechanical ventilation, currently on FiO2 50% . 2. Abdominal pain, acute cholecystitis has been ruled out 3. Suspected pneumonia, on IV antibiotic 4. Acute on chronic congestive heart failure exacerbation with systolic dysfunction 5. Relative hypotension, currently on vasopressor 5. Chronic meth use 6. Acute kidney injury likely hemodynamically mediated, currently off of diuretics 7. Chronic tobacco use disorder/marijuana use 8. Thrombocytopenia suspect Zosyn induced, DC Zosyn, start cefepime 9. Acute on chronic metabolic encephalopathy - patient currently remains intubated and sedated Date of Service: Mar 18, 2025 Billing Provider: PING SANDERSON MD Common Visit Codes: NOT BILLABLE PING SANDERSON MD Mar 18, 2025 15:32
--- NOTE | 2025-03-18 22:52 | DVHPN2 ---
Progress Note - Dictate Date Seen: Mar 18, 2025 Has the PT tested + for MRSA If YES, has PT been informed?: No Medical Necessity Reason Pt with a Central, PICC or Fol: Yes The following are medically ne: Central Line, Obrien Catheter Reason for obrien catheter: Strict I&O Subjective Patient seen and examined at bedside. Sedated, intubated on mechanical ventilator. Overnight events reviewed. vital signs Vital Sign Date Time Temp Pulse Resp B/P (MAP) Pulse Ox O2 Delivery O2 Flow Rate FiO2 03/18/25 16:00 12 100 Mechanical Ventilator+ 50 50 03/18/25 15:30 98.5 118 70/40 (50) 98.5 03/18/25 14:00 0 Total Intake and Output 03/17/25 03/17/25 03/18/25 15:00 23:00 07:00 Intake Total 278.504 ml 756.504 ml 692.817 ml Output Total 600 ml 550 ml Balance 278.504 ml 156.504 ml 142.817 ml medications Current Medications Medications Dose Ordered Sig/Jose Luis Route Start Time Stop Time Status Last Admin Dose Admin Vancomycin HCl 0 ml @ 0 mls/hr UD IV 03/03/25 18:45 UNV Ipratropium Sigurd 0.5 mg Q6HWA NEB 03/10/25 18:00 Cancel objective Gen.: Patient lying in bed in medical ICU. Sedated, intubated on mechanical ventilator. Head: Normocephalic, atraumatic. Eyes: PERRLA. Ears: Normal external anatomy. Throat: Endotracheal tube and orogastric tube in place. Neck: Supple, trachea midline. Chest: Transmitted breath sounds bilaterally. Decreased air entry bilaterally. No wheezing. Bibasilar crackles. Cardiovascular: Positive S1, positive S2. Regular rate and rhythm. Abdomen: Positive bowel sounds in all 4 quadrants. Soft, nontender, nondistended. : Obrien in place. Normal external genitalia. Rectal: Deferred. Skin: Warm, dry. Intact. Extremities: 2+ radial pulses bilaterally. No lower extremity edema. Neuro: Sedated. laboratory and microbiology Laboratory Tests 03/17/25 03:30 Test 03/17/25 03:30 Range/Units Serum Glucose 136 H 74-106 mg/dL Assessment/Plan Impression: Acute hypoxic respiratory failure On mechanical ventilator Influenza B Pneumonia d/t influenza B Metabolic acidosis Anemia Amphetamine dependence Renal failure Obesity, BMI 32.6 Events: Remains on vent support this AM. On AC mode; RR 14, VT 350, PEEP 10, FiO2 40% Goals of care discussion with family. Family agreed for hospice care. Plan for compassionate extubation Continue supportive care Patient with poor prognosis Labs and imaging reviewed. Plan: s/p intubation on mechanical ventilator. On AC mode; RR 14, VT 350, PEEP 10, FiO2 40% Plan for compassionate extubation and supportive care. Continue antibiotics Continue bronchodilators. IV steroids Pressors for hemodynamic support Titrate to keep mean arterial pressure greater than 65 mmHg. Monitor renal function Monitor electrolytes. Supplement as necessary. Monitor ins and outs. Maintain euvolemia Monitor hemoglobin d/t anemia Transfuse if less than 7.0 g/dL. Obesity complicates all care GI prophylaxis. DVT prophylaxis. Prognosis: Poor given patient's multiple co-morbidities. Condition: Critical Rest of plan per hospitalist and other consultants. A total of 35 minutes of critical care time was spent reviewing the patient record, examining the patient, making a diagnostic and therapeutic plan, discussing this plan with the medical personnel, following up on diagnostic studies and following the patient for clinical stability excluding any and all procedures. At least 50% of this time was spent in direct, [id number] contact. Thank you, LAKESHIA Rodriguez, for allowing me to participate in this patient's care. Further recommendations will depend on the patient's clinical course. Please do not hesitate to contact me if you have any questions or concerns. This medical document was created using an electronic medical record system with [employer] dictation system. Although these documentations are being carefully reviewed, there may still be some phonetic and typographical changes. The errors are purely typographical, due to imperfection on the software program, and do not reflect any compromise in the patient's medical care. Dietary Evaluation Review Comments: 1) Liberalizing to 2gm Na diet 2) Monitor PO intake, lab values, weight trend, and I/O Expected Outcomes/Goals: To meet >75% estimated needs Fu 3-5 days Plan discussed with: Other (RN/NOK) Critical Care Time(min): 35 [facility]ALIE DONALDSON [facility] Mar 18, 2025 22:52
== END 2025-03-18 17:18 | disposition hospice, home (50) | DRG 207 ==
LOC: ER 17:27 → OVERFLOW 22:49 → TELE-CENTR 02-26 17:33 → TELE-EAST 02-26 23:53 → DOU IN ICU 03-03 16:57 → ICU CENTRL 03-03 17:00
PROVIDERS: ADMIT Internal Medicine; ATTEND Internal Medicine
PROC: 02H633Z Insertion of Infusion Device into Right Atrium, Percutaneous Approach (ICD-10-PCS; principal; 2025-03-03)
PROC: 5A1955Z Respiratory Ventilation, Greater than 96 Consecutive Hours (ICD-10-PCS; 2025-03-03)
PROC: 0BH17EZ Insertion of Endotracheal Airway into Trachea, Via Natural or Artificial Opening (ICD-10-PCS; 2025-03-03)
PROC: 0B9M8ZZ Drainage of Bilateral Lungs, Via Natural or Artificial Opening Endoscopic (ICD-10-PCS; 2025-03-12)
DX: J96.21 Acute and chronic respiratory failure with hypoxia (principal); J15.69 Pneumonia due to other Gram-negative bacteria; A41.89 Other specified sepsis; I50.23 Acute on chronic systolic (congestive) heart failure; R65.21 Severe sepsis with septic shock; G93.41 Metabolic encephalopathy; J10.01 Influenza due to other identified influenza virus with the same other identified influenza virus pneumonia; J15.9 Unspecified bacterial pneumonia; I13.0 Hypertensive heart and chronic kidney disease with heart failure and stage 1 through stage 4 chronic kidney disease, or unspecified chronic kidney disease; J44.0 Chronic obstructive pulmonary disease with (acute) lower respiratory infection; R18.8 Other ascites; E87.4 Mixed disorder of acid-base balance; B19.10 Unspecified viral hepatitis B without hepatic coma; E87.0 Hyperosmolality and hypernatremia; F15.20 Other stimulant dependence, uncomplicated; N17.9 Acute kidney failure, unspecified; K80.20 Calculus of gallbladder without cholecystitis without obstruction; Z66 Do not resuscitate; Z20.822 Contact with and (suspected) exposure to COVID-19; Z51.5 Encounter for palliative care; K44.9 Diaphragmatic hernia without obstruction or gangrene; E78.5 Hyperlipidemia, unspecified; I25.5 Ischemic cardiomyopathy; I25.10 Atherosclerotic heart disease of native coronary artery without angina pectoris; E87.6 Hypokalemia; E87.5 Hyperkalemia; E07.9 Disorder of thyroid, unspecified; I27.20 Pulmonary hypertension, unspecified; D64.9 Anemia, unspecified; I51.3 Intracardiac thrombosis, not elsewhere classified; E88.09 Other disorders of plasma-protein metabolism, not elsewhere classified; E87.8 Other disorders of electrolyte and fluid balance, not elsewhere classified; D69.6 Thrombocytopenia, unspecified; B19.20 Unspecified viral hepatitis C without hepatic coma; N18.9 Chronic kidney disease, unspecified; E66.9 Obesity, unspecified; Z68.27 Body mass index [BMI] 27.0-27.9, adult; F17.210 Nicotine dependence, cigarettes, uncomplicated; G89.4 Chronic pain syndrome; I25.2 Old myocardial infarction; I48.0 Paroxysmal atrial fibrillation; Z79.82 Long term (current) use of aspirin; Z79.899 Other long term (current) drug therapy; Z81.8 Family history of other mental and behavioral disorders; Z82.0 Family history of epilepsy and other diseases of the nervous system; Z82.49 Family history of ischemic heart disease and other diseases of the circulatory system; Z86.73 Personal history of transient ischemic attack (TIA), and cerebral infarction without residual deficits; Z91.199 Patient's noncompliance with other medical treatment and regimen due to unspecified reason; Z93.1 Gastrostomy status; Z98.61 Coronary angioplasty status; Z95.0 Presence of cardiac pacemaker
CPT/HCPCS: 36415; 36556; 36600; 70450; 71045; 74176; 76705; 78226; 80048; 80053; 80061; 80307; 81001; 82140; 82533; 82570; 82607; 82728; 82805; 83036; 83540; 83550; 83605; 83690; 83735; 83880; 83970; 84100; 84132; 84156; 84300; 84439; 84443; 84450; 84460; 84481; 85025; 85379; 85610; 85730; 86141; 86704; 86706; 86708; 86803; 87040; 87070; 87081; 87086; 87205; 87340; 87426; 87804; 93005; 93306; 93925; 93970; 94002; 94003; 94640; 96365; 96375; 99291; 99292; G0378; G9035; J1815; J2405; J2470; J2543; J2704; J3480; P9047; Q9956